=== PATIENT | female | born 2005 | race Caucasian/White ===

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

== ENCOUNTER 2024-06-13 16:06 | Emergency (ER) | payer MEDICAID, SELFPAY ==
[2024-06-13 16:07] VITALS: BP 124/65; PULSE 102; RESP 19; TEMP 36.2; O2SAT 96; BMI 34.4
--- NOTE | 2024-06-13 16:22 | EDS_ITS ---
HPI History of Present Illness Chief Complaint: Abd Pain Informant: patient Narrative Narrative: 19-year-old female is 18 weeks , since yesterday she has felt lightheaded some nausea and just generally feeling poorly. Some subjective chills. Some suprapubic discomfort and an increase in the low back discomfort that she has had for a little while. She has had urinary frequency while , that is no different than usual yesterday and today. No dysuria. No hematuria. No syncope, no vertiginous symptoms or focal neurologic symptoms, no cough or dyspnea. PFSH PFS Medical History ADH disorder Asthma Home Medications ?Medication ?Instructions ?Recorded ?Last Taken ?Type albuterol sulfate 90 mcg/actuation 1 - 2 puff inhalati on Q4H PRN PRN 06/30/19 Unknown History aerosol inhaler Sob &/Or Wheezing atomoxetine 40 mg capsule 40 mg PO DAILY 11/28/21 Unkn own History etonogestrel 68 mg subdermal See Rx Instructions .Rout e .COMPLEX 11/28/21 Unknown History implant (Nexplanon) ketoconazole 2 % shampoo 1 applic topical DAILY 11/28 Unknown History metoclopramide HCl 10 mg tablet 10 mg PO Q6H PRN Heada kacie #15 tabs 11/28/21 Unknown Rx sulfacetamide sodium (acne) 10 % 1 applic topical BID 11/28/21 Unknown History lotion (suspension) nitrofurantoin 100 mg PO Q12 #14 CAPSULES 0 06/13/24 Unknown Rx monohydrate/macrocrystals 100 mg capsule Allergy/AdvReac Type Severity Reaction Status Date / Time camphor (From Vicks Vaporub) Allergy Other Verified 06/13/24 16:07 eucalyptus (From Vicks Allergy Other Verified 06/13/24 16:07 Vaporub) menthol (From Vicks Vaporub) Allergy Other Verified 06/13/24 16:07 petrolatum,white (From Vicks Allergy Other Verified 06/13/24 16:07 Vaporub) turpentine oil (From Vicks Allergy Other Verified 06/13/24 16:07 Vaporub) Surgical History H/O eye surgery Social History Smoking Status: Never smoker ROS ROS ED Constitutional Constitutional ED: Reports chills; Denies fever(s) Eyes Eyes: Denies change in vision or diplopia ENT ENT ED: Denies rhinorrhea or sore throat Cardiovascular Cardiovascular: Reports lightheadedness; Denies chest pain, palpitations or syncope Respiratory/Chest Respiratory/Chest: Denies cough or dyspnea Gastrointestinal Gastrointestinal: Reports abdominal pain; Denies diarrhea, nausea or vomiting Genitourinary Genitourinary ED: Reports urinary frequency; Denies dysuria or hematuria Musculoskeletal Musculoskeletal: Reports back pain; Denies neck pain Integumentary Denies abscess or rash Neurologic Neurologic: Denies headache(s), paresthesias or weakness Psychiatric Psychiatric: Denies anxiety or suicidal thoughts EXAM Physical Exam Const Vital Signs: 06/13/24 16:07 06/13/24 16:44 06/13/24 18:06 Temperature 97.1 F L Temperature Source Temporal Pulse Rate 102 H 100 Respiratory Rate 19 H 16 Respiratory Effort Normal Respiratory Pattern Normal Blood Pressure 124/65 H 128/75 H Blood Pressure Mean 84 92 Pulse Ox 96 99 Oxygen Delivery Method Room Air Positive well nourished and well developed General Appearance ED: well developed and NAD HEENT Reports moist mucous membranes normocephalic and atraumatic Eyes PERRL and EOMs intact bilaterally Neck full ROM and supple Resp normal respiratory effort and clear to auscultation bilaterally Cardio regular rate, regular rhythm and no murmurs GI GI Narrative: Mild suprapubic tenderness no guarding or rebound. Abdomen distended to about t he umbilicus consistent with second trimester around 18 weeks. Otherwise benign abdomen. Auscultation: normoactive bowel sounds Palpation: soft Back/Spine no CVA tenderness General Back: other FROM Extremity normal to inspection General Extremety ED: Negative for edema, pulses abnormal or tenderness General Extremity: Negative for edema or pulses abnormal Neuro oriented x3, CN's II-XII intact bilaterally, no sensory deficits noted and gait normal Sensorium / Orientation: awake and alert Motor Exam: strength 5/5 throughout Psych mental status grossly normal Skin no rashes or lesions noted and no wounds MDM MDM MDM Narrative Medical decision making narrative: Patient's vital signs look normal for her second trimester . Prior to my seeing the patient, she gave us a urine sample, it is cloudy. I suspect she has UTI so we sent UA and culture. It is consistent with infection, I suspect this is causing the patient's symptoms. She will be started on Macrobid we sent a culture and advised to follow-up with her OB. Lab Data Attestation: I reviewed the patient's lab results. Labs: Laboratory Results - last 24 hr 06/13/24 16:22 Urine Color Straw Urine Clarity Cloudy Urine pH 8.0 Ur Specific [place]iskey 1.010 Urine Protein 30 H Urine Glucose (UA) Normal Urine Ketones Negative Urine Occult Blood Negative Urine Nitrite Negative Urine Bilirubin Negative Urine Urobilinogen Normal Ur Leukocyte Esterase 500 H Urine RBC 0-5 SEEN Urine WBC 10-25 SEEN Ur Squamous Epith Cells 50-100 SEEN Urine Bacteria 1+ Urine Mucus 0 SEEN Discharge Plan Triage Chief Complaint: Abd Pain Other Complaint: General Illness ED Provider: Robles Cagle Dx/Rx/DC Orders Clinical Impression: Acute cystitis without hematuria, Second trimester Instructions: ED Cystitis Female Adult Prescriptions: New nitrofurantoin monohyd/m-cryst 100 mg capsule 100 mg PO Q12 Qty: 14 0RF No Action albuterol sulfate 1 INHALER inhaler 1 - 2 puff inhalation Q4H PRN PRN (Reason: Sob &/Or Wheezing) ketoconazole 2 % shampoo 1 applic TOPICAL DAILY sulfacetamide sodium (acne) 10 % suspension 1 applic TOPICAL BID Patient Comments: APPLY A THIN LAYER TO THE FACE 1-2 TIMES DAILY atomoxetine 40 mg capsule 40 mg PO DAILY Patient Comments: TAKE 1 CAPSULE BY MOUTH IN THE MORNING Nexplanon 68 mg Implant See Rx Instructions .ROUTE .COMPLEX Rx Instructions: 68 mg subdermally every 5 to 6 years metoclopramide HCl [metoclopramide HCl] 10 MG tablet 10 mg PO Q6H PRN (Reason: Headache) Qty: 15 0RF Primary Care Provider: Vashti Mclean Referrals: Vashti Mclean DO [Primary Care Provider] - Jes Blount DO [Med Staff - Active Staff] - 3-5 Days if not improving Print Language: Sami Disposition Disposition: Home, Self Care
[2024-06-13 16:31] LABS: Mucous, Urine 0 SEEN /hpf (<or=2+)
[2024-06-13 16:34] LABS: Color, Urine Straw (Yellow); Glucose, Dipstick Normal (Normal); Ketone-Dipstick Negative (Negative); Leukocyte Esterase-Dipstick 500 /ul (Negative); Nitrite-Dipstick Negative (Negative); Occult Blood-Urine Negative /ul (Negative); Protein-Dipstick 30 mg/dl (Negative); Urine Bilirubin Dipstick Negative (Negative); Urine Clarity Cloudy (Clear); Urine Urobilinogen Normal (Normal)
[2024-06-13 18:06] VITALS: BP 128/75; PULSE 100; RESP 16; O2SAT 99
[2024-06-13 18:49] LABS: Bacteria 1+ /hpf (None Seen); Red Blood Cells-Urine 0-5 SEEN /hpf (0-5); White Blood Cells 10-25 SEEN /hpf (0-5)
[2024-06-13 18:50] LABS: Squamous Epithelial Cells - UA 50-100 SEEN /hpf (5-10)
[2024-06-13] MEDS: Nitrofurantoin Macrocrystals 100 MG Capsule PO (19:01)
[2024-06-13 19:02] VITALS: BP 138/78; PULSE 88; RESP 16; O2SAT 99
== END 2024-06-13 19:04 | disposition home or self-care (01) ==
PROVIDERS: Emergency Provider Emergency Medicine; PCP Pediatrics; Visit Provider Emergency Medicine
DX: O23.12 Infections of bladder in pregnancy, second trimester (principal); N30.00 Acute cystitis without hematuria; O99.342 Other mental disorders complicating pregnancy, second trimester; F90.9 Attention-deficit hyperactivity disorder, unspecified type; O99.512 Diseases of the respiratory system complicating pregnancy, second trimester; J45.909 Unspecified asthma, uncomplicated; O99.891 Other specified diseases and conditions complicating pregnancy; Z3A.18 18 weeks gestation of pregnancy; Z79.899 Other long term (current) drug therapy
CPT/HCPCS: 81001; 87086; 87088; 87186; 99283

== ENCOUNTER 2024-08-22 01:51 | Emergency (ER) | payer MEDICAID, SELFPAY ==
[2024-08-22 01:51] VITALS: BP 135/93; PULSE 100; RESP 16; TEMP 36.6; O2SAT 100; BMI 32.4
--- OUTSIDE RECORDS SUMMARY | 2024-08-22 02:23 | XMS RPT_ITS | CCD ---
Author Organization [facility] Care Team Providers [employer] Name Role Phone Elizabeth Hannon Unavailable Lizzy Dacosta Primary Care [facility] er Vashti Mclean DO Primary Care Provider Lizzy Dacosta Primary Care [facility] er VASHTI MCLEAN Primary Care Unavailable ROSALINE ESTEBAN Referring Unavailable ROSALINE ESTEBAN Attending Unavailable REFERRED, SELF Referring Unavailable VASHTI MCLEAN Primary Care Unavailable VASHTI MCLEAN Attending Unavailable REFERRED, SELF Referring Unavailable VASHTI MCLEAN Primary Care Unavailable VASHTI MCLEAN Attending Unavailable REFERRED, SELF Referring Unavailable VASHTI MCLEAN Primary Care Unavailable ROSALINE ESTEBAN Attending Unavailable VASHTI MCLEAN Attending Unavailable VASHTI MCLEAN Primary Care Unavailable REFERRED, SELF Referring Unavailable VASHTI MCLEAN Attending Unavailable VASHTI MCLEAN Primary Care Unavailable REFERRED, SELF Referring Unavailable Lizzy Dacosta Primary Care Provid er Lizzy Dacosta MD Primary Care Pro vider PHYSICIAN, NOT RECORDED Primary Care Physician U Robles Bustamante Attending Unavailable Vashti Mclean Primary Care Unavailable CÉSAR JOSHI Attending Unavailable LIZZY DACOSTA Primary Care Nisha vailable MELANIA NASSAR Attending Unavailable LIZZY DACOSTA Primary Care Nisha vailable LI, MONA Referring Unavailable LIZZY DACOSTA Primary Care Nisha vailable LI, MONA Referring Unavailable LIZZY DACOSTA Primary Care Nisha vailable LI, MONA Attending Unavailable LIZZY DACOSTA Primary Care Nisha vailable PHYSICIAN, NOT RECORDED Primary Care Unavaila ble JAMIE MARTIN, AMINTA Attending Unavailable PHYSICIAN, NOT RECORDED Primary Care Unavaila clifford ANNE MD, MARYJO Consulting Unavailable KAPPER MAINTENANCE TEAM MEMBER-LITHOGRAPH PRINTER, ALEX Myles Attending Unavaila clifford TITUS MAINTENANCE TEAM MEMBER-LITHOGRAPH PRINTERALEX Admitting Unavaila ble JOHN MARTIN, DR GUILLERMO Hylton Attending Unavailable PHYSICIAN, NOT RECORDED Primary Care Unavaila EDITH Merrill MD Consulting Unavailable ERIN DO, CLAU Attending Unavailable PHYSICIAN, NOT RECORDED Primary Care Unavaila clifford HARDY MD, JUNG Consulting Unavailable ANGELINA FIGUEROA, EDITH Admitting Unavailable PHYSICIAN, NOT RECORDED Primary Care Unavaila ble WOO FIGUEROA, DR MICHAEL LE Consulting Unav ailable ASHLEY DO, MAYE Attending Unavailable VARUN DO, SYLVESTER C Consulting Unavailabl e USEN, ODUWARE Consulting Unavailable MAHMOBRIDGETTE DO, CLAU Consulting Unavailable MICHAEL LÓPEZ MD Consulting Unavailab mrai SANTACRUZ MD, DR MAVERICK PRECIADO Consulting Unavaila ble MICHAEL LÓPEZ MD Consulting Unavailab le PHYSICIAN, NOT RECORDED Primary Care Unavaila clifford HARDY MD, JUNG Admitting Unavailable HAYLEY FIGUEROA, JUNG Attending Unavailable PHYSICIAN, NOT RECORDED Primary Care Unavaila ble OB, OB [facility] Consulting Unavailable ALINA MARTIN, DR GUTHRIE Attending Unavailable EMIR WEAVER DO Admitting Unavailable MARYJO ANNE MD Consulting Unavailable EDUARDO FIGUEROA, DR LENI Baldwin Consulting Nakul GUTIERREZ MD, LIVIA Consulting Unavailable Elizabeth El Consulting Unavailable JAIRON NAVA Consulting Unavailable MICHAEL LÓPEZ MD Attending Unavailab le PHYSICIAN, NOT RECORDED Primary Care Unavaila ble Allergies Allergy Classification Reported Allergen(s) Allergy Type Date of Onset Reaction(s) Facility (11 sources) [facility]; Translations: [CAMPH-EUCALYPT- [id number]] Drug Intolerance 0 Intolerance [facility] Work Phone: (2 sources) Other; Translations: [OTHER] Propensity to adverse reactions 0 Blistering Rash [facility] (17 sources) Camphor; Translations: [camphor topical] Drug Allergy 9 Other: See Comments [facility] (10 sources) Eucalyptus extract; Translations: [EUCALYPTUS] Drug Allergy 9 Other: See Comments [facility] Work Phone: (10 sources) Menthol; Translations: [MENTHOL] Drug Allergy 9 Other: See Comments [facility] Work Phone: (10 sources) Petrolatum; Translations: [PETROLATUM,WHIT E] Drug Allergy 9 Other: See Comments [facility] Work Phone: (9 sources) Turpentine Drug Allergy 2 Other: See Comments [facility] Work Phone: (1 source) Camphor Drug Allergy 5 [facility] Repository (1 source) Eucalyptus extract Drug Allergy 5 [facility] Repository (1 source) Menthol Drug Allergy 5 [facility] Repository (1 source) Petrolatum Drug Allergy 5 [facility] Repository (1 source) turpentine oil Drug allergy (disorder) 5 [facility] Repository (1 source) TURPENTINE; Translations: [TURPENTINE] Propensity to adverse reactions to drug (disorder) 2 [facility] Repository (2 sources) Piperacillin / tazobactam; Translations: [piperacillin-ta zobactam] Drug Allergy [facility] Medications Current Medications Medication Drug Class(es) Dates Sig (Normalized) Sig (Original) acetaminophen 500 mg oral tablet (2 sources) Start: 06-19-2024 End: 06-26-2024 Tylenol Extra Strength 500 mg oral tablet Dose : 1,000 mg = 2 tab(s), Oral, q6hr, PRN Pain, scale 4-10, X 7 day(s), # 50 tab(s), 0 Refill(s), 06/26/24 11:19:00 AM EDT, Pharmacy: [facility], 175.3, cm, 06/15/24 22:10:00 EDT, Height, kg, 06/15/24 22:10:00 EDT, Dosing Weight Start Date: 06/19/24 Stop Date: 06/26/24 Status: Ordered Quantity: 50.0 Unit: tab(s) Repeat number: 1 [id number] 200 actuat albuterol 0.09 mg/actuat metered dose inhaler (8 sources) beta2-Adrenergic Agonist Start: 08-11-2019 take 2 puff(s) by inhalation every four hours as needed for cough albuterol 108 (90 Base) MCG/ACT inhaler Inhale 2 Puffs into the lungs every 4 hours as needed for Wheezing or Cough Use with spacer. 2 Inhaler 1 08/11/2019 Active Start: 06-30-2019 take 1 puff(s) by in halation every four hours as needed Albuterol Sulfate Active 1 - 2 PUFF INHALATION EVERY 4 HOURS NEEDED June 29, 2019 11:00pm Start: 04-09-2018 End: 05-06-2024 albuterol HFA (PROVENTIL HFA , VENTOLIN HFA) 90 mcg/actuation inhaler Inhale 2 Puffs as instructed. 04/09/2018 05/06/2024 Discontinued Comment on above: Inhale 2 Puffs as in structed. amoxicillin 500 mg oral capsule (1 source) Penicillin-class Antibacterial Start: 2 End: 2 take 1 capsule by mouth twice daily amoxicillin (POLYMOX, AMOXIL) 500 mg capsule Indications: Sore throat Take 1 capsule by mouth twice daily for 10 days. 20 capsule 0 05/16/2021 05/26/2021 Active Comment on above: Take [address] [facility] twice daily for 10 days. amoxicillin 875 mg / clavulanate 125 mg oral tablet (4 sources) Penicillin-class Antibacterial Start: 5 End: 5 amoxicillin-clavula good 875 mg-125 mg oral tablet 1 tab(s), Oral, BIDM, # 20 tab(s), 0 Refill(s), 06/28/24 3:24:00 PM EDT, Pharmacy: [facility], 175.3, cm, 06/15/24 22:10:00 EDT, Height, 106.1, kg, 06/15/24 22:10:00 EDT, Dosing Weight Start Date: 06/18/24 Stop Date: 06/28/24 Status: Ordered Quantity: 20.0 Unit: tab(s) Repeat number: 1 Start: 02-15-2022 End: 02-20-2022 take 1 tablet by mouth twice daily amoxicillin-clavulanic acid (AUGMENTIN) 875-125 mg per tablet Take 1 tablet by mouth twice daily for 5 days. 10 tablet 0 02/15/2022 02/20/2022 Active Comment on above: Take 1 tablet by josep th twice daily for 5 days. Take 1 tablet by josep th twice daily for 3 days. aspirin 81 mg delayed release oral tablet (6 sources) Platelet Aggregation Inhibitor, Nonsteroidal Anti-inflammatory Drug Start: 05-07-19 take 1 tablet by mouth once daily aspirin, enteric coated (ECOTRIN LOW STRENGTH) 81 mg EC tablet Indications: 12 weeks gestation of ([facility]) , Encounter for supervision of normal first in first trimester ([facility]) Take 1 tablet by mouth once daily. 90 tablet 3 05/06/2024 Active atomoxetine 40 mg oral capsule (8 sources) Norepinephrine Reuptake Inhibitor Start: 12-18-19 End: 05-07-19 atomoxetine (STRATTERA) 40 mg capsule 12/17/2020 05/06/2024 Discontinued cefdinir 300 mg oral capsule (2 sources) Cephalosporin Antibacterial Start: 06-28-19 End: 07-12-19 cefdinir 300 mg oral capsule Dose : 300 mg = 1 cap(s), Oral, q12h, X 14 day(s), # 28 cap(s), 0 Refill(s), 07/11/24 1:45:00 PM EDT, Pharmacy: [facility], 177.8, cm, 06/24/24 6:07:00 EDT, Height, 105.3, kg, 06/24/24 6:07:00 EDT, Dosing Weight Start Date: 06/27/24 Stop Date: 07/11/24 Status: Ordered Quantity: 28.0 Unit: cap(s) Repeat number: 1 cephalexin 500 mg oral capsule (2 sources) Cephalosporin Antibacterial Start: 06-15-19 End: 06-22-19 cephalexin 500 mg oral capsule Dose : 500 mg = 1 cap(s), Oral, q12h, X 7 day(s), # 14 cap(s), 0 Refill(s), 06/21/24 1:49:00 AM EDT, 109.1 Start Date: 06/14/24 Stop Date: 06/21/24 Status: Ordered Quantity: 14.0 Unit: cap(s) Repeat number: 1 ciprofloxacin 500 mg oral tablet (1 source) Quinolone Antimicrobial Start: 07-11-19 End: 07-21-19 Cipro 500 mg oral tablet Dose : 500 mg = 1 tab(s), Oral, q12h, X 10 day(s), # 20 tab(s), 0 Refill(s), 07/20/24 8:50:00 AM EDT, Pharmacy: [facility], 15.3, cm, 07/07/24 0:34:00 EDT, Height, 103.4, kg, 07/07/24 0:34:00 EDT, Dosing Weight Start Date: 07/10/24 Stop Date: 07/20/24 Status: Ordered Quantity: 20.0 Unit: tab(s) Repeat number: 1 etonogestrel 68 mg drug implant (6 sources) Progestin Start: 11-11-19 End: 05-07-19 etonogestrel (NEXPLANON) subdermal implant 68 mg Indications: Insertion of implantable subdermal contraceptive 1 Each by SUBDERMAL route as directed. 1 Each 11/11/2019 05/06/2024 Discontinued etonogestrel (NE XPLANON) 68 MG subdermal implant Inject 1 implant into the skin once 0 Active Comment on above: 1 Each by SUBDERMAL route as directed. Etonogestrel (Nexplanon) 68 mg Implant (2 sources) Start: 11-28-2021 Etonogestrel (Nexplanon) 68 mg Implant Active 0 .ROUTE .COMPLEX November 27, 2021 11:00pm 68 mg subdermally every 5 to 6 years Start: 11-28-2021 Etonogestrel ( Nexplanon) 68 mg Implant Active 0 .ROUTE .COMPLEX November 28, 2021 12:00am 68 mg subdermally every 5 to 6 years famotidine 20 mg oral tablet (3 sources) Histamine-2 Receptor Antagonist Start: 06-19-2024 Pepcid 20 mg oral tablet Dose : 20 mg = 1 tab(s), Oral, qDay, # 30 tab(s), 0 Refill(s), Pharmacy: [facility], 175.3, cm, 06/15/24 22:10:00 EDT, Height, kg, 06/15/24 22:10:00 EDT, Dosing Weight Start Date: 06/19/24 Status: Ordered Quantity: 30.0 Unit: tab(s) Repeat number: 1 ferrous sulfate 325 mg oral tablet (6 sources) ferrous sulfate (IRON) 325 mg (65 mg iron) tablet Take 325 mg by mouth. Active folic acid 0.4 mg oral tablet (6 sources) take 1 tablet by mouth once daily folic acid 400 mcg tablet Take 400 mcg by mouth once daily. Active ibuprofen 600 mg oral tablet (3 sources) Nonsteroidal Anti-inflammatory Drug Start: 06-27-2024 End: 07-11-2024 ibuprofen 600 mg oral tablet Dose : 600 mg = 1 tab(s), Oral, q6h, Take with food or milk., # 60 tab(s), 0 Refill(s), Pharmacy: [facility], 177.8, cm, 06/24/24 6:07:00 EDT, Height, kg, 06/24/24 6:07:00 EDT, Dosing Weight Start Date: 06/27/24 Stop Date: 07/11/24 Status: Ordered Quantity: 60.0 Unit: tab(s) Repeat number: 1 ketoconazole 20 mg/ml medicated shampoo (7 sources) Azole Antifungal Start: 11-28-2021 Ketoconazole Active 1 APPLIC TOPICAL DAILY November 27, 2021 11:00pm Start: 05-03-2021 End: 05-06-2024 ketoconazole (NIZORAL) 2 % s hampoo WASH THE SCALP DAILY AND ALLOW TO SIT ON THE SCALP FOR 5 MINUTES PRIOR TO RINSING 05/03/2021 05/06/2024 Discontinued Comment on above: WASH THE SCALP DAILY AND ALLOW TO SIT ON THE SCALP FOR 5 MINUTES PRIOR TO RINSING melatonin 10 mg oral tablet (5 sources) End: 05-06-2024 melatonin 10 mg tab Take by mouth. 05/06/2024 Discontinued Comment on above: Take by mouth. metoclopramide 10 mg oral tablet (4 sources) Dopamine-2 Receptor Antagonist Start: 06-14-2024 End: 06-21-2024 Reglan 10 mg oral tablet Dose : 10 mg = 1 tab(s), Oral, TID, X 7 day(s), # 21 tab(s), 0 Refill(s), 06/21/24 1:49:00 AM EDT Start Date: 06/14/24 Stop Date: 06/21/24 Status: Ordered Quantity: 21.0 Unit: tab(s) Repeat number: 1 Start: 11-28-2021 take 10 mg by mouth every six hours Metoclopramide Hcl Active 10 MG PO EVERY 6 HOURS November 28, 2021 6:51pm metroNIDAZOLE 500 mg oral tablet (3 sources) Nitroimidazole Antimicrobial Start: 06-27-2024 End: 07-20-2024 metroNIDAZOLE 500 mg oral tablet Dose : 500 mg = 1 tab(s), Oral, q8h, X 10 day(s), # 30 tab(s), 0 Refill(s), 07/20/24 8:51:00 AM EDT, Pharmacy: [facility], 15.3, cm, 07/07/24 0:34:00 EDT, Height, 103.4, kg, 07/07/24 0:34:00 EDT, Dosing Weight Start Date: 07/10/24 Stop Date: 07/20/24 Status: Ordered Quantity: 30.0 Unit: tab(s) Repeat number: 1 ondansetron 4 mg disintegrating oral tablet (2 sources) Serotonin-3 Receptor Antagonist Start: 06-14-2024 End: 06-18-2024 ondansetron 4 mg oral tablet, disintegrating Dose : 4 mg = 1 tab(s), Oral, q6h, PRN Nausea/Vomiting, X 4 day(s), # 12 tab(s), 0 Refill(s), 06/18/24 1:49:00 AM EDT Start Date: 06/14/24 Stop Date: 06/18/24 Status: Ordered Quantity: 12.0 Unit: tab(s) Repeat number: 1 polyethylene glycol 3350 17150 mg powder for oral solution (3 sources) Osmotic Laxative Start: 06-19-2024 End: 06-29-2024 take 17 doses by mouth once daily as needed for constipation MiraLax oral powder for reconstitution Dose : 17 gram(s) =, Oral, qDay, PRN Constipation, X 10 day(s), # 10 EA, 0 Refill(s), 06/29/24 11:20:00 AM EDT, Pharmacy: [facility], 175.3, cm, 06/15/24 22:10:00 EDT, Height, kg, 06/15/24 22:10:00 EDT, Dosing Weight Start Date: 06/19/24 Stop Date: 06/29/24 Status: Ordered Quantity: 10.0 Unit: EA Repeat number: 1 Multivitamins (1 source) Start: 06-15-2024 take 1 tablet by mouth once daily Multivitamins Dose = 1 tab(s), Oral, qDay, 0 Refill(s) Start Date: 06/15/24 Status: Ordered Repeat number: 1 VIT 4-ZXMH-YIBJN-DHA ORAL (6 sources) VIT 2-MXBG-PPHFL-DHA ORAL Take by mouth. Active pyridoxine HCl, vitamin B6, (PYRIDOXINE ORAL) (6 sources) pyridoxine HCl, vitamin B6, (PYRIDOXINE ORAL) Take by mouth. Active riboflavin 100 mg oral tablet (4 sources) Start: 01-11-2022 End: 05-06-2024 VITAMIN B-2 100 mg tab 01/11/2022 05/06/2024 Discontinued sennosides, shelter 8.6 mg oral tablet (1 source) Start: 06-27-2024 End: 07-17-2024 Senokot 8.6 mg oral tablet Dose : 8.6 mg = 1 tab(s), Oral, qHS, PRN for constipation, # 20 tab(s), 0 Refill(s), Pharmacy: [facility], 177.8, cm, 06/24/24 6:07:00 EDT, Height, kg, 06/24/24 6:07:00 EDT, Dosing Weight Start Date: 06/27/24 Stop Date: 07/17/24 Status: Ordered Quantity: 20.0 Unit: tab(s) Repeat number: 1 spironolactone 100 mg oral tablet (6 sources) Aldosterone Antagonist Start: 05-03-2021 End: 05-06-2024 take 1 tablet by mouth once daily spironolactone (ALDACTONE) 100 mg tablet TAKE 1 TABLET BY MOUTH AT THE SAME TIME NIGHTLY WITH WATER 05/03/2021 05/06/2024 Discontinued Comment on above: TAKE 1 TABLET BY JOSEP AT THE SAME TIME NIGHTLY WITH WATER sulfacetamide sodium 100 mg/ml topical lotion (12 sources) Sulfonamide Antibacterial Start: 11-28-2021 Sulfacetamide Sodium (Acne) Active 1 APPLIC TOPICAL TWICE A DAY November 27, 2021 11:00pm Start: 05-05-2021 Sulfacetamide Sodium, Acne, 10 % susp APPLY A THIN LAYER TO THE FACE 1-2 TIMES DAILY 05/05/2021 Active Comment on above: APPLY A THIN LAYER T O THE FACE 1-2 TIMES DAILY Completed/Discontinued Medications Medication Drug Class(es) Dates Sig (Normalized) Sig (Original) magnesium oxide 400 mg oral tablet (3 sources) Start: 01-11-2022 End: 05-05-2024 take 1 tablet by mouth once daily magnesium oxide (MAG-OX) 400 mg (241.3 mg magnesium) tablet Take 1 tablet by mouth once daily. 01/11/2022 05/05/2024 Discontinued Comment on above: Take 1 tablet by josep once daily. nitrofurantoin, macrocrystals 25 mg / nitrofurantoin, monohydrate 75 mg oral capsule (3 sources) Nitrofuran Antibacterial Start: 05-07-2024 End: 05-14-2024 take 1 capsule by mouth twice daily nitrofurantoin monohydrate and macrocrystal (MACROBID) 100 mg capsule Take 1 capsule by mouth two times a day for 7 days. 14 capsule 05/07/2024 05/14/2024 oxyCODONE hydrochloride 5 mg oral tablet (4 sources) Opioid Agonist Start: 07-01-2024 oxyCODONE 5 mg oral tablet ( IMMEDIATE release ) Dose : 5 mg = 1 tab(s), Oral, q6h, PRN as needed for pain, 0 Refill(s), 105.3 Start Date: 07/01/24 Status: Ordered Repeat number: 1 Start: 06-27-2024 End: 06-30-2024 oxyCODONE 5 mg oral tablet ( IMMEDIATE release ) Dose : 5 mg = 1 tab(s), Oral, q6hr, X 3 day(s), # 12 tab(s), 0 Refill(s), 06/30/24 1:47:00 PM EDT, Pharmacy: [facility], Post-op pain, 177.8, cm, 06/24/24 6:07:00 EDT, Height, 105.3, kg, 06/24/24 6:07:00 EDT, Dosing Weight Start Date: 06/27/24 Stop Date: 06/30/24 Status: Ordered Quantity: 12.0 Unit: tab(s) Repeat number: 1 Indications: Other acute postprocedural pain; Start: 06-19-2024 End: 06-22-2024 oxyCODONE 5 mg oral tablet ( IMMEDIATE release ) Dose : 5 mg = 1 tab(s), Oral, q6hr, PRN as needed for pain, X 3 day(s), # 12 tab(s), 0 Refill(s), 06/22/24 8:07:00 AM EDT, Pharmacy: [facility], Postoperative pain, 175.3, cm, 06/15/24 22:10:00 EDT, Height, 106.1, kg, 06/15/24 22:10:00 EDT, Dosing Weight Start Date: 06/19/24 Stop Date: 06/22/24 Status: Ordered Quantity: 12.0 Unit: tab(s) Repeat number: 1 Indications: Other acute postprocedural pain; Problems Active Problems Problem Classification Problem Date Documented Da te Episodic/Chronic Abdominal pain (3 sources) Abdominal pain; Translations: [Unspecified abdominal pain] Onset: 06-15-2024 Episodic Acute posthemorrhagic anemia (1 source) Acute posthemorrhagic anemia; Translations: [Acute posthemorrhagic anemia] Onset: 06-23-2024 Episodic Adjustment disorders (1 source) Adjustment disorder with depressed mood; Translations: [Adjustment disorder with depressed mood] Onset: 06-23-2024 Chronic Allergic reactions (1 source) Allergy status to penicillin; Translations: [Allergy status to penicillin] Onset: 07-07-2024 Episodic Appendicitis and other appendiceal conditions (6 sources) Appendicitis; Translations: [Unspecified appendicitis] Onset: 06-15-2024 Episodic Asthma (4 sources) Asthma; Translations: [Unspecified asthma, uncomplicated] Onset: 02-01-2010 03-24-2021 Chronic Attention-deficit, conduct, and disruptive behavior disorders (1 source) Attention deficit hyperactivity disorder, predominantly inattentive type; Translations: [Attention-deficit hyperactivity disorder, predominantly inattentive type] Onset: 08-10-2021 08-10-2021 Chronic Cardiac dysrhythmias (4 sources) Tachyarrhythmia ; Translations: [Tachycardia, unspecified] Onset: 06-15-2024 Episodic Complications of surgical procedures or medical care (6 sources) Postprocedural infection; Translations: [Infection following a procedure, other surgical site, initial encounter] Onset: 06-23-2024 Episodic Conditions associated with dizziness or vertigo (1 source) Dizziness; Translations: [Dizziness and giddiness] Episodic Contraceptive and procreative management (1 source) Subcutaneous contraceptive implant present; Translations: [Encounter for surveillance of implantable subdermal contraceptive] 08-27-2023 Episodic Deficiency and other anemia (1 source) Anemia; Translations: [Anemia, unspecified] Episodic Diseases of white blood cells (4 sources) Leukocytosis; Translations: [Elevated white blood cell count, unspecified] Onset: 06-15-2024 Chronic Disorders of teeth and jaw (1 source) Other specified disorders of teeth and supporting structures; Translations: [Other specified disorders of teeth and supporting structures] Onset: 06-23-2024 Episodic Fever of unknown origin (3 sources) Fever; Translations: [Fever, unspecified] Onset: 06-30-2019 Resolved: 09-02-2019 09-02-2019 Episodic Fluid and electrolyte disorders (6 sources) Hypokalemia; Translations: [Hypokalemia] Onset: 06-15-2024 Episodic Headache; including migraine (3 sources) Headache; Translations: [Headache] Onset: 07-01-2019 Resolved: 07-01-2019 07-01-2019 Episodic Immunizations and screening for infectious disease (3 sources) Patient encounter status; Translations: [Encounter for screening for infections with a predominantly sexual mode of transmission] Onset: 05-06-2024 05-06-2024 Episodic Intestinal obstruction without hernia (1 source) Ileus, unspecified; Translations: [Ileus, unspecified] Onset: 06-23-2024 Episodic Malaise and fatigue (1 source) Fatigue; Translations: [Other fatigue] Episodic Mood disorders (1 source) Mood disorders; Translations: [Depression, unspecified] Onset: 06-23-2024 Nausea and vomiting (2 sources) Nausea; Translations: [Nausea] Onset: 06-15-2024 Episodic Open wounds of head; neck; and trunk (1 source) Laceration of right eyelid; Translations: [Laceration without foreign body of right eyelid and periocular area, initial encounter] Episodic Other complications of (1 source) Anemia complicating , second trimester; Translations: [Anemia complicating , second trimester] Onset: 06-23-2024 Chronic Other complications of (1 source) Obesity complicating , second trimester; Translations: [Obesity complicating , second trimester] Onset: 06-23-2024 Chronic Other complications of (6 sources) Urinary tract infection in ; Translations: [Unspecified infection of urinary tract in , unspecified trimester] Onset: 05-07-2024 05-07-2024 Episodic Other complications of (1 source) Mild hyperemesis gravidarum; Translations: [Mild hyperemesis gravidarum] Onset: 06-14-2024 Episodic Other complications of (2 sources) Diseases of the digestive system complicating , second trimester; Translations: [Diseases of the digestive system complicating , second trimester] Onset: 06-15-2024 Episodic Other complications of (1 source) Mild hyperemesis gravidarum; Translations: [Mild hyperemesis gravidarum] Onset: 06-13-2024 Episodic Other complications of (1 source) Other diseases of the blood and blood-forming organs and certain disorders involving the immune mechanism complicating , second trimester; Translations: [Other diseases of the blood and blood-forming organs and certain disorders involving the immune mechanism complicating , second trimester] Onset: 06-23-2024 Episodic Other complications of (1 source) Other maternal infectious and parasitic diseases complicating , second trimester; Translations: [Other maternal infectious and parasitic diseases complicating , second trimester] Onset: 06-23-2024 Episodic Other complications of (1 source) Missed ; Translations: [Missed ] Onset: 06-23-2024 Episodic Other complications of (1 source) Other mental disorders complicating , second trimester; Translations: [Other mental disorders complicating , second trimester] Onset: 06-23-2024 Episodic Other complications of (1 source) Diseases of the respiratory system complicating , second trimester; Translations: [Diseases of the respiratory system complicating , second trimester] Onset: 06-23-2024 Episodic Other complications of (1 source) Endocrine, nutritional and metabolic diseases complicating , second trimester; Translations: [Endocrine, nutritional and metabolic diseases complicating , second trimester] Onset: 06-23-2024 Episodic Other complications of (1 source) Smoking (tobacco) complicating , second trimester; Translations: [Smoking (tobacco) complicating , second trimester] Onset: 06-15-2024 Episodic Other gastrointestinal disorders (1 source) Constipation, unspecified; Translations: [Constipation, unspecified] Onset: 06-23-2024 Episodic Other nervous system disorders (1 source) Postoperative pain ; Translations: [Other acute postprocedural pain] Onset: 06-19-2024 Episodic Other nervous system disorders (2 sources) Other acute postprocedural pain; Translations: [Other acute postprocedural pain] Onset: 06-15-2024 Episodic Other non-traumatic joint disorders (2 sources) Elbow joint pain; Translations: [Pain in right elbow] Episodic Other nutritional; endocrine; and metabolic disorders (7 sources) Body mass index 30+ - obesity; Translations: [Body mass index (BMI) 36.0-36.9, adult] Onset: 05-06-2024 05-06-2024 Chronic Other nutritional; endocrine; and metabolic disorders (1 source) Hypomagnesemia; Translations: [Hypomagnesemia] Onset: 06-23-2024 Chronic Other and delivery including normal (20 sources) Normal ; Translations: [Encounter for supervision of normal first , first trimester] Onset: 05-06-2024 05-06-2024 Episodic Comment on above: System added from do cumentation. Status documented as Yes on Admission need to chart still Polyhydramnios and other problems of amniotic cavity (1 source) Chorioamnionitis, second trimester, not applicable or unspecified; Translations: [Chorioamnionitis, second trimester, not applicable or unspecified] Onset: 06-23-2024 Episodic Residual codes; unclassified (4 sources) Gestation period, 12 weeks; Translations: [12 weeks gestation of ] 05-06-2024 Episodic Residual codes; unclassified (1 source) Gestation period, 18 weeks; Translations: [18 weeks gestation of ] Episodic Residual codes; unclassified (1 source) 16 weeks gestation of ; Translations: [16 weeks gestation of (HCC)] Onset: 06-05-2024 Episodic Residual codes; unclassified (1 source) 12 weeks gestation of ; Translations: [12 weeks gestation of ] Onset: 05-08-2024 Episodic Residual codes; unclassified (2 sources) 18 weeks gestation of ; Translations: [18 weeks gestation of ] Onset: 06-15-2024 Episodic Residual codes; unclassified (1 source) 19 weeks gestation of ; Translations: [19 weeks gestation of ] Onset: 06-23-2024 Episodic Residual codes; unclassified (1 source) Laparoscopic surgical procedure converted to open procedure; Translations: [Laparoscopic surgical procedure converted to open procedure] Onset: 06-15-2024 Episodic Septicemia (except in labor) (1 source) Other streptococcal sepsis; Translations: [Other streptococcal sepsis] Onset: 06-23-2024 Episodic Skin and subcutaneous tissue infections (2 sources) Abscess of abdominal wall; Translations: [Cutaneous abscess of abdominal wall] Onset: 06-23-2024 Episodic Substance-related disorders (1 source) Nicotine dependence, other tobacco product, uncomplicated; Translations: [Nicotine dependence, other tobacco product, uncomplicated] Onset: 07-07-2024 Chronic Unclassified (6 sources) [facility] - COMMON Onset: 05-06-2024 05-06-2024 Unclassified (6 sources) Education - [place] Onset: 05-06-2024 05-06-2024 Unclassified (1 source) Elevation of levels of liver transaminase levels; Translations: [Elevation of levels of liver transaminase levels] Onset: 06-23-2024 Urinary tract infections (1 source) Urinary tract infectious disease; Translations: [Urinary tract infection, site not specified] Episodic Past or Other Problems Problem Classification Problem Date Documented Da te Episodic/Chronic Fracture of upper limb (6 sources) Unspecified fracture of the lower end of left radius, initial encounter for closed fracture; Translations: [Unspecified fracture of the lower end of left radius, subsequent encounter for closed fracture with routine healing] Onset: 10-13-2016 10-23-2016 Episodic Other nutritional; endocrine; and metabolic disorders (1 source) Childhood obesity; Translations: [Body mass index (BMI) pediatric, greater than or equal to 95th percentile for age] Onset: 04-10-2018 04-10-2018 Episodic Other upper respiratory infections (3 sources) Sore throat symptom; Translations: [Acute pharyngitis, unspecified] Onset: 04-16-2013 Resolved: 07-30-2020 Episodic Viral infection (1 source) Viral disease; Translations: [Viral infection, unspecified] Onset: 07-01-2019 Resolved: 07-30-2020 07-30-2020 Episodic NEGATED: Highlighted row has been ruled out!Unclassified (1 source) No known active problems 02-15-2022 Results Test Name Value Interpretation Reference Range Facility .Manual Diffon 07-09-2024 Bands 2.0 % Normal 0.0-5.0 [facility] Comment on above: Performed By: #### D IFFSACHIN, CBC ####[address] [address] Basophil %, Manual 0.0 % Normal 0.0-2.5 [facility] Comment on above: Performed By: #### D IFFSACHIN, CBC ####[place] [id number] [place] [address] Basophil, Abs Manual 0.0 10 3/mcL Normal 0.0-0.3 [facility] Comment on above: Performed By: #### D IFFSACHIN, CBC ####[place] [id number] [place] [address] Eosinophil %, Manual 1.0 % Normal 0.0-6.0 [facility] Comment on above: Performed By: #### D IFFSACHIN, CBC ####[place] [id number] [place] [address] Eosinophil, Abs Manual 0.1 10 3/mcL Normal 0.0-0.7 [facility] Comment on above: Performed By: #### D IFF MORPH, CBC ####[address] [address] Lymphocyte %, Manual 32.0 % Normal 20.0-40.0 [facility] Comment on above: Performed By: #### D IFF, MORPH, CBC ####[place] [id number] Lymphocyte, Abs Manual 3.0 10 3/mcL Normal 0.9-4.3 [facility] Comment on above: Performed By: #### D IFF, MORPH, CBC ####[place] [address] Metamyelocyte 1.0 % Normal [facility] Comment on above: Performed By: #### D IFF, MORPH, CBC ####[place] [address] Monocyte %, Manual 3.0 % Normal 2.0-13.0 [facility] Comment on above: Performed By: #### D IFF, MORPH, CBC ####[place] [address] Monocyte, Abs Manual 0.3 10 3/mcL Normal 0.1-1.4 [facility] Comment on above: Performed By: #### D IFF, MORPH, CBC ####[place] [address] Neutrophil %, Manual 61.0 % Normal 50.0-75.0 [facility] Comment on above: Performed By: #### D IFF, MORPH, CBC ####[place] [address] Neutrophil, Abs Manual 5.9 10 3/mcL Normal 2.3-8.1 [facility] Comment on above: Performed By: #### D IFF, MORPH, CBC ####[place] [address] Nucleated RBC 0.0 /100 WBC Normal [facility] Comment on above: Performed By: #### D IFF, MORPH, CBC ####[place] [address] .Morphon 07-09-2024 RBC morphology finding Nom (Bld) Normal Normal [facility] Comment on above: Performed By: #### D IFF, MORPH, CBC ####[place] [address] Platelet Estimate Slt Increased Normal [facility] Comment on above: Performed By: #### D SACHIN MATHEWS, CBC ####[place] [address] CBCon 07-09-2024 Erythrocyte distribution width (RBC) [Ratio] 14.1 % Normal 11.5-15.5 [facility] Comment on above: Performed By: #### D SACHIN MATHEWS, CBC ####[place] [address] Hematocrit (Bld) [Volume fraction] 28.4 % Low 34.0-46.0 [facility] Comment on above: Performed By: #### D SACHIN MATHEWS, CBC ####[place] [address] Hgb 9.6 G/dL Low 12.0-16.0 [facility] Comment on above: Performed By: #### D SACHIN MATHEWS, CBC ####[place] [address] MCH (RBC) [Entitic mass] 29.0 pg Normal 27.0-33.0 [facility] Comment on above: Performed By: #### D SACHIN MATHEWS, CBC ####[place] [address] MCHC 33.7 G/dL Normal 32.0-36.0 [facility] Comment on above: Performed By: #### D SACHIN MATHEWS, CBC ####[place] [address] MCV (RBC) [Entitic vol] 86.1 fL Normal 80.0-99.0 [facility] Comment on above: Performed By: #### D SACHIN MATHEWS, CBC ####[place] [address] Platelet 523 10 3/mcL High 150-450 [facility] Comment on above: Performed By: #### D SACHIN MATHEWS, CBC ####[place] [address] Platelet mean volume (Bld) [Entitic vol] 6.9 fL Normal 6.6-10.5 [facility] Comment on above: Performed By: #### D SACHIN MATHEWS, CBC ####[place] [address] RBC 3.31 10 6/mcL Low 4.10-5.30 [facility] Comment on above: Performed By: #### D SACHIN MATHEWS, CBC ####[place] [address] WBC 9.4 10 3/mcL Normal 4.5-10.8 [facility] Comment on above: Performed By: #### D SACHIN MATHEWS, CBC ####[place] [address] LABORATORYOrdered By: SYSTEM SYSTEM on 07-09-2024 Band form neutrophils/100 WBC (Bld) 2.0 % Normal 0.0 - 5.0 % AH Workflow SS Basophils (Bld) [#/Vol] 0.0 103/mcL Normal 0.0 - 0.3 10^3/mcL Workflow SS Basophils/100 WBC (Bld) 0.0 % Normal 0.0 - 2.5 % AH Workflow SS Eosinophils (Bld) [#/Vol] 0.1 103/mcL Normal 0.0 - 0.7 10^3/mcL Workflow SS Eosinophils/100 WBC (Bld) 1.0 % Normal 0.0 - 6.0 % AH Workflow SS Erythrocyte distribution width (RBC) [Ratio] 14.1 % Normal 11.5 - 15.5 % AH Workflow SS Hematocrit (Bld) [Volume fraction] 28.4 % Low 34.0 - 46.0 % AH Workflow SS Hemoglobin (Bld) [Mass/Vol] 9.6 G/dL Low 12.0 - 16.0 G/dL AH Workflow SS Lymphocytes (Bld) [#/Vol] 3.0 103/mcL Normal 0.9 - 4.3 10^3/mcL Workflow SS Lymphocytes/100 WBC (Bld) 32.0 % Normal 20.0 - 40.0 % AH Workflow SS MCH (RBC) [Entitic mass] 29.0 pg Normal 27.0 - 33.0 pg AH Workflow SS MCHC 33.7 G/dL Normal 32.0 - 36.0 G/dL AH Workflow SS MCV (RBC) [Entitic vol] 86.1 fL Normal 80.0 - 99.0 fL AH Workflow SS Metamyelocytes/100 WBC (Bld) 1.0 % Invalid Interpretation Code AH Workflow SS Monocytes (Bld) [#/Vol] 0.3 103/mcL Normal 0.1 - 1.4 10^3/mcL AH Workflow SS Monocytes/100 WBC (Bld) 3.0 % Normal 2.0 - 13.0 % AH Workflow SS Neutrophils (Bld) [#/Vol] 5.9 103/mcL Normal 2.3 - 8.1 10^3/mcL AH Workflow SS Neutrophils/100 WBC (Bld) 61.0 % Normal 50.0 - 75.0 % AH Workflow SS Nucleated RBC 0.0 /100 WBC Invalid Interpretation Code Workflow SS Platelet mean volume (Bld) [Entitic vol] 6.9 fL Normal 6.6 - 10.5 fL AH Workflow SS Platelets (Bld) [#/Vol] 523 103/mcL High 150 - 450 10^3/mcL AH Workflow SS Platelets LM Ql (Bld) Slt Increased *NA* (07/09/24 3:56 AM) Invalid Interpretation Code Workflow SS RBC (Bld) [#/Vol] 3.31 106/mcL Low 4.10 - 5.3 0 10^6/mcL AH Workflow SS RBC morphology finding Nom (Bld) Normal *NA* (07/09/24 3:56 AM) Invalid Interpretation Code Workflow SS WBC (Bld) [#/Vol] 9.4 103/mcL Normal 4.5 - 10.8 10^3/mcL AH Workflow SS .GFRon 07-08-2024 GFR/1.73 sq M.predicted among non-blacks MDRD (S/P/Bld) [Vol rate/Area] mL/min/{1.73_m2} Normal [facility] Comment on above: Result Comment: Stages of Chronic Kidney Disease (CKD) Stage Description eGFR(ml/min/1.73 sq.m.) CKD 1 Normal kidney function or >=90 normal kindney function with possible kidney damage (ex. Proteinuria) CKD 2 Kidney damage with mild loss 60-89 of kidney function CKD 3a Mild to moderate loss of kidney 45-59 function CKD 3b Moderate to severe loss of 30-44 of kindey function CKD 4 Severe loss of kidney function 15-29 CKD 5 Kidney failure <15 Note: (go live 2024) the eGFR calculation was updated to the 2020 CKD-EPI creatinine equation without a race factor to calculate the eGFR results. Performed By: #### B MP, DIFF, CBC, GFR, MORPH ####[place] [id number] .Manual Diffon 07-08-2024 Bands 5.0 % Normal 0.0-5.0 [facility] Comment on above: Performed By: #### B MP, DIFF, CBC, GFR, MORPH ####[place] [address] Basophil %, Manual 0.0 % Normal 0.0-2.5 [facility] Comment on above: Performed By: #### B MP, DIFF, CBC, GFR, MORPH ####[place] [address] Basophil, Abs Manual 0.0 10 3/mcL Normal 0.0-0.3 [facility] Comment on above: Performed By: #### B MP, DIFF, CBC, GFR, MORPH ####[place] [address] Eosinophil %, Manual 1.0 % Normal 0.0-6.0 [facility] Comment on above: Performed By: #### B MP, DIFF, CBC, GFR, MORPH ####[place] [address] Eosinophil, Abs Manual 0.1 10 3/mcL Normal 0.0-0.7 [facility] Comment on above: Performed By: #### B MP, DIFF, CBC, GFR, MORPH ####[place] [address] Lymphocyte %, Manual 23.0 % Normal 20.0-40.0 [facility] Comment on above: Performed By: #### B MP, DIFF, CBC, GFR, MORPH ####[place] [address] Lymphocyte, Abs Manual 2.2 10 3/mcL Normal 0.9-4.3 [facility] Comment on above: Performed By: #### B MP, DIFF, CBC, GFR, MORPH ####[place] [address] Monocyte %, Manual 3.0 % Normal 2.0-13.0 [facility] Comment on above: Performed By: #### B MP, DIFF, CBC, GFR, MORPH ####[place] [address] Monocyte, Abs Manual 0.3 10 3/mcL Normal 0.1-1.4 [facility] Comment on above: Performed By: #### B MP, DIFF, CBC, GFR, MORPH ####[place] [address] Neutrophil %, Manual 68.0 % Normal 50.0-75.0 [facility] Comment on above: Performed By: #### B MP, DIFF, CBC, GFR, MORPH ####[place] [address] Neutrophil, Abs Manual 7.1 10 3/mcL Normal 2.3-8.1 [facility] Comment on above: Performed By: #### B MP, DIFF, CBC, GFR, MORPH ####[place] [address] Nucleated RBC 0.0 /100 WBC Normal [facility] Comment on above: Performed By: #### B MP, DIFF, CBC, GFR, MORPH ####[place] [address] .Morphon 07-08-2024 Anisocytosis Ql (Bld) 1+ Normal [facility] Comment on above: Performed By: #### B MP, DIFF, CBC, GFR, MORPH ####[place] [address] Platelet Estimate Slt Increased Normal [facility] Comment on above: Performed By: #### B MP, DIFF, CBC, GFR, MORPH ####[place] [address] BMPon 07-08-2024 BUN/Creatinine Ratio Unable to Calculate Normal 10.0-2 2.0 [facility] Comment on above: Result Comment: Unab le to calculate this test result accurately. Results used to calculate this test are outside the reportable range. Performed By: #### B MP, DIFF, CBC, GFR, MORPH ####[address] [address] Urea nitrogen [Mass/Vol] mg/dL Low 8.0-22.0 [facility] Comment on above: Performed By: #### B MP, DIFF, CBC, GFR, MORPH ####[address] [address] Calcium [Mass/Vol] 9.4 mg/dL Normal 8.7-10.4 [facility] Comment on above: Performed By: #### B MP, DIFF, CBC, GFR, MORPH ####[address] [address] Chloride [Moles/Vol] 110 mmol/L Normal 98-110 [facility] Comment on above: Performed By: #### B MP, DIFF, CBC, GFR, MORPH ####[place] [address] CO2 [Moles/Vol] 24 mmol/L Normal 22-32 [facility] Comment on above: Performed By: #### B MP, DIFF, CBC, GFR, MORPH ####[place] [address] Creatinine [Mass/Vol] 0.54 mg/dL Normal 0.50-1.20 [facility] Comment on above: Result Comment: Test ing performed on [employer] analyzer using enzymatic creatinine methodology. Performed By: #### B MP, DIFF, CBC, GFR, MORPH ####[address] [address] Electrolyte Balance 9.0 mEq/L Normal 4.0-15.0 [facility] Comment on above: Performed By: #### B MP, DIFF, CBC, GFR, MORPH ####[address] [address] Glucose [Mass/Vol] 93 mg/dL Normal 70-110 [facility] Comment on above: Performed By: #### B MP, DIFF, CBC, GFR, MORPH ####[place] [address] Potassium [Moles/Vol] 3.7 mmol/L Normal 3.5-5.0 [facility] Comment on above: Performed By: #### B MP, DIFF, CBC, GFR, MORPH ####[place] [address] Sodium [Moles/Vol] 143 mmol/L Normal 136-145 [facility] Comment on above: Performed By: #### B MP, DIFF, CBC, GFR, MORPH ####[place] [address] CBCon 07-08-2024 Erythrocyte distribution width (RBC) [Ratio] 14.0 % Normal 11.5-15.5 [facility] Comment on above: Performed By: #### B MP, DIFF, CBC, GFR, MORPH ####[place] [address] Hematocrit (Bld) [Volume fraction] 30.5 % Low 34.0-46.0 [facility] Comment on above: Performed By: #### B MP, DIFF, CBC, GFR, MORPH ####[place] [address] Hgb 10.3 G/dL Low 12.0-16.0 [facility] Comment on above: Performed By: #### B MP, DIFF, CBC, GFR, MORPH ####[place] [address] MCH (RBC) [Entitic mass] 29.2 pg Normal 27.0-33.0 [facility] Comment on above: Performed By: #### B MP, DIFF, CBC, GFR, MORPH ####[place] [address] MCHC 33.8 G/dL Normal 32.0-36.0 [facility] Comment on above: Performed By: #### B MP, DIFF, CBC, GFR, MORPH ####[place] [address] MCV (RBC) [Entitic vol] 86.2 fL Normal 80.0-99.0 [facility] Comment on above: Performed By: #### B MP, DIFF, CBC, GFR, MORPH ####[facility] [place] [address] Platelet 496 10 3/mcL High 150-450 [facility] Comment on above: Performed By: #### B MP, DIFF, CBC, GFR, MORPH ####[facility] [place] [address] Platelet mean volume (Bld) [Entitic vol] 6.6 fL Normal 6.6-10.5 [facility] Comment on above: Performed By: #### B MP, DIFF, CBC, GFR, MORPH ####[place] [id number] [place] [address] RBC 3.54 10 6/mcL Low 4.10-5.30 [facility] Comment on above: Performed By: #### B MP, DIFF, CBC, GFR, MORPH ####[place] [id number] [place] [address] WBC 9.7 10 3/mcL Normal 4.5-10.8 [facility] Comment on above: Performed By: #### B MP, DIFF, CBC, GFR, MORPH ####[place] [address] LABORATORYOrdered By: SYSTEM SYSTEM on 07-08-2024 Anisocytosis Ql (Bld) 1+ *NA* (07/08/24 10:53 AM) Invalid Interpretation Code AH Workflow SS Band form neutrophils/100 WBC (Bld) 5.0 % Normal 0.0 - 5.0 % AH Workflow SS Basophils (Bld) [#/Vol] 0.0 103/mcL Normal 0.0 - 0.3 10^3/mcL AH Workflow SS Basophils/100 WBC (Bld) 0.0 % Normal 0.0 - 2.5 % AH Workflow SS Calcium [Mass/Vol] 9.4 mg/dL Normal 8.7 - 10. 4 mg/dL ADM SS Chloride [Moles/Vol] 110 mmol/L Normal 98 - 11 0 mEq/L ADM SS CO2 [Moles/Vol] 24 mmol/L Normal 22 - 32 mEq/L ADM SS Creatinine [Mass/Vol] 0.54 mg/dL Normal 0.50 - 1.20 mg/dL ADM SS Comment on above: Interpretive Data: T esting performed on [employer] analyzer using enzymatic creatinine methodology. Electrolyte Balance 9.0 mEq/L Normal 4.0 - 15 .0 mEq/L ADM SS Eosinophils (Bld) [#/Vol] 0.1 103/mcL Normal 0.0 - 0.7 10^3/mcL Workflow SS Eosinophils/100 WBC (Bld) 1.0 % Normal 0.0 - 6.0 % Workflow SS Erythrocyte distribution width (RBC) [Ratio] 14.0 % Normal 11.5 - 15.5 % Workflow SS Estimated Glomerular Filtration Rate ml/min/1.73sqm Invalid Interpretation Code Chemistry S Comment on above: Interpretive Data: Stages of Chronic Kidney Disease (CKD) Stage Description eGFR(ml/min/1.73 sq.m.) CKD 1 Normal kidney function or >=90 normal kindney function with possible kidney damage (ex. Proteinuria) CKD 2 Kidney damage with mild loss 60-89 of kidney function CKD 3a Mild to moderate loss of kidney 45-59 function CKD 3b Moderate to severe loss of 30-44 of kindey function CKD 4 Severe loss of kidney function 15-29 CKD 5 Kidney failure <15 Note: (go live 2024) the eGFR calculation was updated to the 2020 CKD-EPI creatinine equation without a race factor to calculate the eGFR results. Glucose [Mass/Vol] 93 mg/dL Normal 70 - 110 mg/dL ADM SS Hematocrit (Bld) [Volume fraction] 30.5 % Low 34.0 - 46.0 % Workflow SS Hemoglobin (Bld) [Mass/Vol] 10.3 G/dL Low 12.0 - 16.0 G/dL Workflow SS Lymphocytes (Bld) [#/Vol] 2.2 103/mcL Normal 0.9 - 4.3 10^3/mcL Workflow SS Lymphocytes/100 WBC (Bld) 23.0 % Normal 20.0 - 40.0 % Workflow SS MCH (RBC) [Entitic mass] 29.2 pg Normal 27.0 - 33.0 pg Workflow SS MCHC 33.8 G/dL Normal 32.0 - 36.0 G/dL Workflow SS MCV (RBC) [Entitic vol] 86.2 fL Normal 80.0 - 99.0 fL AH Workflow SS Monocytes (Bld) [#/Vol] 0.3 103/mcL Normal 0.1 - 1.4 10^3/mcL AH Workflow SS Monocytes/100 WBC (Bld) 3.0 % Normal 2.0 - 13.0 % AH Workflow SS Neutrophils (Bld) [#/Vol] 7.1 103/mcL Normal 2.3 - 8.1 10^3/mcL AH Workflow SS Neutrophils/100 WBC (Bld) 68.0 % Normal 50.0 - 75.0 % AH Workflow SS Nucleated RBC 0.0 /100 WBC Invalid Interpretation Code AH Workflow SS Platelet mean volume (Bld) [Entitic vol] 6.6 fL Normal 6.6 - 10.5 fL AH Workflow SS Platelets (Bld) [#/Vol] 496 103/mcL High 150 - 450 10^3/mcL AH Workflow SS Platelets LM Ql (Bld) Slt Increased *NA* (07/08/24 10:53 AM) Invalid Interpretation Code AH Workflow SS Potassium [Moles/Vol] 3.7 mmol/L Normal 3.5 - 5.0 mEq/L AH ADM SS RBC (Bld) [#/Vol] 3.54 106/mcL Low 4.10 - 5.3 0 10^6/mcL AH Workflow SS Sodium [Moles/Vol] 143 mmol/L Normal 136 - 145 mEq/L AH ADM SS WBC (Bld) [#/Vol] 9.7 103/mcL Normal 4.5 - 10.8 10^3/mcL AH Workflow SS LABORATORYOrdered By: Sully crystal on 07-08-2024 Urea nitrogen [Mass/Vol] mg/dL Low 8.0 - 22.0 mg/dL Chemistry S Urea nitrogen/Creatinine [Mass ratio] Unable to Calculate Invalid Interpretation Code 10.0 - 22.0 Chemistry S Comment on above: Result Comment: Unab le to calculate this test result accurately. Results used to calculate this test are outside the reportable range. .Auto Diffon 07-07-2024 Basophil, Absolute 0.0 10 3/mcL Normal 0.0-0.3 [facility] Comment on above: Performed By: #### M ORPH, GFR, BMP, ANEU, DIFF, CBC, ADIFF ####[address] [address] Basophils/100 WBC (Bld) 0.3 % Normal 0.0-2.5 [facility] Comment on above: Performed By: #### M ORPH, GFR, BMP, ANEU, DIFF, CBC, ADIFF ####[address] [address] Eosinophil, Absolute 0.1 10 3/mcL Normal 0.0-0.7 [facility] Comment on above: Performed By: #### M ORPH, GFR, BMP, ANEU, DIFF, CBC, ADIFF ####[address] [address] Eosinophils/100 WBC (Bld) 0.6 % Normal 0.0-6.0 [facility] Comment on above: Performed By: #### M ORPH, GFR, BMP, ANEU, DIFF, CBC, ADIFF ####[address] [address] Lymphocyte, Absolute 2.7 10 3/mcL Normal 0.9-4.3 [facility] Comment on above: Performed By: #### M ORPH, GFR, BMP, ANEU, DIFF, CBC, ADIFF ####[address] [address] Lymphocytes/100 WBC (Bld) 17.5 % Low 20.0-40.0 [facility] Comment on above: Performed By: #### M ORPH, GFR, BMP, ANEU, DIFF, CBC, ADIFF ####[address] [address] Monocyte, Absolute 0.6 10 3/mcL Normal 0.1-1.4 [facility] Comment on above: Performed By: #### M ORPH, GFR, BMP, ANEU, DIFF, CBC, ADIFF ####[address] [address] Monocytes/100 WBC (Bld) 3.9 % Normal 2.0-13.0 [facility] Comment on above: Performed By: #### M ORPH, GFR, BMP, ANEU, DIFF, CBC, ADIFF ####[address] [address] Neutrophils/100 WBC (Bld) 77.7 % High 50.0-75.0 [facility] Comment on above: Performed By: #### M ORPH, GFR, BMP, ANEU, DIFF, CBC, ADIFF ####[place] [address] .GFRon 07-07-2024 GFR/1.73 sq M.predicted among non-blacks MDRD (S/P/Bld) [Vol rate/Area] mL/min/{1.73_m2} Normal [facility] Comment on above: Result Comment: Stages of Chronic Kidney Disease (CKD) Stage Description eGFR(ml/min/1.73 sq.m.) CKD 1 Normal kidney function or >=90 normal kindney function with possible kidney damage (ex. Proteinuria) CKD 2 Kidney damage with mild loss 60-89 of kidney function CKD 3a Mild to moderate loss of kidney 45-59 function CKD 3b Moderate to severe loss of 30-44 of kindey function CKD 4 Severe loss of kidney function 15-29 CKD 5 Kidney failure <15 Note: (go live 2024) the eGFR calculation was updated to the 2020 CKD-EPI creatinine equation without a race factor to calculate the eGFR results. Performed By: #### M ORPH, GFR, BMP, ANEU, DIFF, CBC, ADIFF ####[place] [id number] .Manual Diffon 07-07-2024 Bands 2.0 % Normal 0.0-5.0 [facility] Comment on above: Performed By: #### M ORPH, GFR, BMP, ANEU, DIFF, CBC, ADIFF ####[place] [id number] Basophil %, Manual 0.0 % Normal 0.0-2.5 [facility] Comment on above: Performed By: #### M ORPH, GFR, BMP, ANEU, DIFF, CBC, ADIFF ####[place] [id number] Basophil, Abs Manual 0.0 10 3/mcL Normal 0.0-0.3 [facility] Comment on above: Performed By: #### M ORPH, GFR, BMP, ANEU, DIFF, CBC, ADIFF ####[address] [address] [address] Eosinophil %, Manual 1.0 % Normal 0.0-6.0 [facility] Comment on above: Performed By: #### M ORPH, GFR, BMP, ANEU, DIFF, CBC, ADIFF ####[address] [address] Eosinophil, Abs Manual 0.2 10 3/mcL Normal 0.0-0.7 [facility] Comment on above: Performed By: #### M ORPH, GFR, BMP, ANEU, DIFF, CBC, ADIFF ####[address] [address] Lymphocyte %, Manual 18.0 % Low 20.0-40.0 [facility] Comment on above: Performed By: #### M ORPH, GFR, BMP, ANEU, DIFF, CBC, ADIFF ####[address] [address] Lymphocyte, Abs Manual 2.7 10 3/mcL Normal 0.9-4.3 [facility] Comment on above: Performed By: #### M ORPH, GFR, BMP, ANEU, DIFF, CBC, ADIFF ####[address] [address] Metamyelocyte 1.0 % Normal [facility] Comment on above: Performed By: #### M ORPH, GFR, BMP, ANEU, DIFF, CBC, ADIFF ####[address] [address] Monocyte %, Manual 4.0 % Normal 2.0-13.0 [facility] Comment on above: Performed By: #### M ORPH, GFR, BMP, ANEU, DIFF, CBC, ADIFF ####[address] [address] Monocyte, Abs Manual 0.6 10 3/mcL Normal 0.1-1.4 [facility] Comment on above: Performed By: #### M ORPH, GFR, BMP, ANEU, DIFF, CBC, ADIFF ####[address] [address] Neutrophil %, Manual 74.0 % Normal 50.0-75.0 [facility] Comment on above: Performed By: #### M ORPH, GFR, BMP, ANEU, DIFF, CBC, ADIFF ####[place] [address] Neutrophil, Abs Manual 11.5 10 3/mcL High 2.3-8.1 [facility] Comment on above: Performed By: #### M ORPH, GFR, BMP, ANEU, DIFF, CBC, ADIFF ####[place] [address] Nucleated RBC 0.0 /100 WBC Normal [facility] Comment on above: Performed By: #### M ORPH, GFR, BMP, ANEU, DIFF, CBC, ADIFF ####[place] [address] .Morphon 07-07-2024 Platelet Estimate Increased Normal [facility] Comment on above: Performed By: #### M ORPH, GFR, BMP, ANEU, DIFF, CBC, ADIFF ####[place] [address] RBC morphology finding Nom (Bld) Normal Normal [facility] Comment on above: Performed By: #### M ORPH, GFR, BMP, ANEU, DIFF, CBC, ADIFF ####[place] [address] Toxic Gran 1+ Normal [facility] Comment on above: Performed By: #### M ORPH, GFR, BMP, ANEU, DIFF, CBC, ADIFF ####[place] [address] .NEUABSon 07-07-2024 Neutrophil, Absolute 11.8 10 3/mcL High 2.3-8.1 [facility] Comment on above: Performed By: #### M ORPH, GFR, BMP, ANEU, DIFF, CBC, ADIFF ####[place] [address] BMPon 07-07-2024 BUN/Creatinine Ratio 10.0 ratio Normal 10.0-22.0 [facility] Comment on above: Performed By: #### M ORPH, GFR, BMP, ANEU, DIFF, CBC, ADIFF ####[address] [address] Calcium [Mass/Vol] 8.5 mg/dL Low 8.7-10.4 [facility] Comment on above: Performed By: #### M ORPH, GFR, BMP, ANEU, DIFF, CBC, ADIFF ####[address] [address] Chloride [Moles/Vol] 110 mmol/L Normal 98-110 [facility] Comment on above: Performed By: #### M ORPH, GFR, BMP, ANEU, DIFF, CBC, ADIFF ####[address] [address] CO2 [Moles/Vol] 23 mmol/L Normal 22-32 [facility] Comment on above: Performed By: #### M ORPH, GFR, BMP, ANEU, DIFF, CBC, ADIFF ####[address] [address] Creatinine [Mass/Vol] 0.50 mg/dL Normal 0.50-1.20 [facility] Comment on above: Result Comment: Test ing performed on [employer] analyzer using enzymatic creatinine methodology. Performed By: #### M ORPH, GFR, BMP, ANEU, DIFF, CBC, ADIFF ####[address] [address] Electrolyte Balance 9.0 mEq/L Normal 4.0-15.0 [facility] Comment on above: Performed By: #### M ORPH, GFR, BMP, ANEU, DIFF, CBC, ADIFF ####[address] [address] Glucose [Mass/Vol] 97 mg/dL Normal 70-110 [facility] Comment on above: Performed By: #### M ORPH, GFR, BMP, ANEU, DIFF, CBC, ADIFF ####[address] [address] Potassium [Moles/Vol] 4.0 mmol/L Normal 3.5-5.0 [facility] Comment on above: Performed By: #### M ORPH, GFR, BMP, ANEU, DIFF, CBC, ADIFF ####[place] [address] Sodium [Moles/Vol] 142 mmol/L Normal 136-145 [facility] Comment on above: Performed By: #### M ORPH, GFR, BMP, ANEU, DIFF, CBC, ADIFF ####[place] [address] Urea nitrogen [Mass/Vol] 5.0 mg/dL Low 8.0-22.0 [facility] Comment on above: Performed By: #### M ORPH, GFR, BMP, ANEU, DIFF, CBC, ADIFF ####[place] [address] CBCon 07-07-2024 Erythrocyte distribution width (RBC) [Ratio] 14.1 % Normal 11.5-15.5 [facility] Comment on above: Performed By: #### M ORPH, GFR, BMP, ANEU, DIFF, CBC, ADIFF ####[place] [address] Hematocrit (Bld) [Volume fraction] 31.0 % Low 34.0-46.0 [facility] Comment on above: Performed By: #### M ORPH, GFR, BMP, ANEU, DIFF, CBC, ADIFF ####[place] [address] Hgb 10.2 G/dL Low 12.0-16.0 [facility] Comment on above: Performed By: #### M ORPH, GFR, BMP, ANEU, DIFF, CBC, ADIFF ####[place] [address] MCH (RBC) [Entitic mass] 28.7 pg Normal 27.0-33.0 [facility] Comment on above: Performed By: #### M ORPH, GFR, BMP, ANEU, DIFF, CBC, ADIFF ####[place] [address] MCHC 33.0 G/dL Normal 32.0-36.0 [facility] Comment on above: Performed By: #### M ORPH, GFR, BMP, ANEU, DIFF, CBC, ADIFF ####[place] [address] MCV (RBC) [Entitic vol] 86.8 fL Normal 80.0-99.0 [facility] Comment on above: Performed By: #### M ORPH, GFR, BMP, ANEU, DIFF, CBC, ADIFF ####[place] [address] Platelet 554 10 3/mcL High 150-450 [facility] Comment on above: Performed By: #### M ORPH, GFR, BMP, ANEU, DIFF, CBC, ADIFF ####[place] [address] Platelet mean volume (Bld) [Entitic vol] 7.2 fL Normal 6.6-10.5 [facility] Comment on above: Performed By: #### M ORPH, GFR, BMP, ANEU, DIFF, CBC, ADIFF ####[place] [address] RBC 3.57 10 6/mcL Low 4.10-5.30 [facility] Comment on above: Performed By: #### M ORPH, GFR, BMP, ANEU, DIFF, CBC, ADIFF ####[place] [address] WBC 15.2 10 3/mcL High 4.5-10.8 [facility] Comment on above: Performed By: #### M ORPH, GFR, BMP, ANEU, DIFF, CBC, ADIFF ####[place] [address] LABORATORYOrdered By: SYSTEM SYSTEM on 07-07-2024 Band form neutrophils/100 WBC (Bld) 2.0 % Normal 0.0 - 5.0 % AH Workflow SS Basophils/100 WBC (Bld) 0.3 % Normal 0.0 - 2.5 % AH Workflow SS Basophils/100 WBC (Bld) 0.0 % Normal 0.0 - 2.5 % AH Workflow SS Calcium [Mass/Vol] 8.5 mg/dL Low 8.7 - 10. 4 mg/dL AH ADM SS Chloride [Moles/Vol] 110 mmol/L Normal 98 - 11 0 mEq/L AH ADM SS CO2 [Moles/Vol] 23 mmol/L Normal 22 - 32 mEq/L ADM SS Creatinine [Mass/Vol] 0.50 mg/dL Normal 0.50 - 1.20 mg/dL AH ADM SS Comment on above: Interpretive Data: T esting performed on [employer] analyzer using enzymatic creatinine methodology. Electrolyte Balance 9.0 mEq/L Normal 4.0 - 15 .0 mEq/L ADM SS Eosinophils (Bld) [#/Vol] 0.1 103/mcL Normal 0.0 - 0.7 10^3/mcL AH Workflow SS Eosinophils (Bld) [#/Vol] 0.2 103/mcL Normal 0.0 - 0.7 10^3/mcL AH Workflow SS Eosinophils/100 WBC (Bld) 0.6 % Normal 0.0 - 6.0 % AH Workflow SS Eosinophils/100 WBC (Bld) 1.0 % Normal 0.0 - 6.0 % Workflow SS Erythrocyte distribution width (RBC) [Ratio] 14.1 % Normal 11.5 - 15.5 % Workflow SS Estimated Glomerular Filtration Rate ml/min/1.73sqm Invalid Interpretation Code Chemistry S Comment on above: Interpretive Data: Stages of Chronic Kidney Disease (CKD) Stage Description eGFR(ml/min/1.73 sq.m.) CKD 1 Normal kidney function or >=90 normal kindney function with possible kidney damage (ex. Proteinuria) CKD 2 Kidney damage with mild loss 60-89 of kidney function CKD 3a Mild to moderate loss of kidney 45-59 function CKD 3b Moderate to severe loss of 30-44 of kindey function CKD 4 Severe loss of kidney function 15-29 CKD 5 Kidney failure <15 Note: (go live 2024) the eGFR calculation was updated to the 2020 CKD-EPI creatinine equation without a race factor to calculate the eGFR results. Glucose [Mass/Vol] 97 mg/dL Normal 70 - 110 mg/dL ADM SS Hematocrit (Bld) [Volume fraction] 31.0 % Low 34.0 - 46.0 % Workflow SS Hemoglobin (Bld) [Mass/Vol] 10.2 G/dL Low 12.0 - 16.0 G/dL AH Workflow SS Lymphocytes/100 WBC (Bld) 17.5 % Low 20.0 - 40.0 % Workflow SS Lymphocytes/100 WBC (Bld) 18.0 % Low 20.0 - 40.0 % AH Workflow SS MCH (RBC) [Entitic mass] 28.7 pg Normal 27.0 - 33.0 pg AH Workflow SS MCHC 33.0 G/dL Normal 32.0 - 36.0 G/dL AH Workflow SS MCV (RBC) [Entitic vol] 86.8 fL Normal 80.0 - 99.0 fL AH Workflow SS Metamyelocytes/100 WBC (Bld) 1.0 % Invalid Interpretation Code AH Workflow SS Monocytes/100 WBC (Bld) 3.9 % Normal 2.0 - 13.0 % AH Workflow SS Monocytes/100 WBC (Bld) 4.0 % Normal 2.0 - 13.0 % AH Workflow SS Neutrophils (Bld) [#/Vol] 11.8 103/mcL High 2.3 - 8.1 10^3/mcL AH Workflow SS Neutrophils (Bld) [#/Vol] 11.5 103/mcL High 2.3 - 8.1 10^3/mcL AH Workflow SS Neutrophils/100 WBC (Bld) 77.7 % High 50.0 - 75.0 % AH Workflow SS Neutrophils/100 WBC (Bld) 74.0 % Normal 50.0 - 75.0 % AH Workflow SS Nucleated RBC 0.0 /100 WBC Invalid Interpretation Code AH Workflow SS Platelet mean volume (Bld) [Entitic vol] 7.2 fL Normal 6.6 - 10.5 fL AH Workflow SS Platelets (Bld) [#/Vol] 554 103/mcL High 150 - 450 10^3/mcL AH Workflow SS Platelets LM Ql (Bld) Increased *NA* (07/07/24 6:45 AM) Invalid Interpretation Code AH Workflow SS Potassium [Moles/Vol] 4.0 mmol/L Normal 3.5 - 5.0 mEq/L AH ADM SS RBC (Bld) [#/Vol] 3.57 106/mcL Low 4.10 - 5.3 0 10^6/mcL AH Workflow SS RBC morphology finding Nom (Bld) Normal *NA* (07/07/24 6:45 AM) Invalid Interpretation Code AH Workflow SS Sodium [Moles/Vol] 142 mmol/L Normal 136 - 145 mEq/L AH ADM SS Toxic granules LM Ql (Bld) 1+ *NA* (07/07/24 6:45 AM) Invalid Interpretation Code AH Workflow SS Urea nitrogen [Mass/Vol] 5.0 mg/dL Low 8.0 - 22.0 mg/dL AH ADM SS Urea nitrogen/Creatinine [Mass ratio] 10.0 ratio Normal 10.0 - 22.0 ratio AH ADM SS WBC (Bld) [#/Vol] 15.2 103/mcL High 4.5 - 10.8 10^3/mcL Workflow SS Laboratory - Hematology and Cell countsOrdered By: SYSTEM SYSTEM on 07-07-2024 Basophils (Bld) [#/Vol] 0.0 103/mcL Normal 0.0 - 0.3 10^3/mcL Workflow SS Lymphocytes (Bld) [#/Vol] 2.7 103/mcL Normal 0.9 - 4.3 10^3/mcL Workflow SS Monocytes (Bld) [#/Vol] 0.6 103/mcL Normal 0.1 - 1.4 10^3/mcL Workflow SS .Auto Diffon 07-06-2024 Basophil, Absolute 0.1 10 3/mcL Normal 0.0-0.3 [facility] Comment on above: Performed By: #### C BC, ADIFF, ANEU, SHAYY, LAC #### [address] [address] Basophils/100 WBC (Bld) 0.7 % Normal 0.0-2.5 [facility] Comment on above: Performed By: #### C BC, ADIFF, ANEU, SHAYY, LAC #### [place] [address] [place], [place] [address] Eosinophil, Absolute 0.1 10 3/mcL Normal 0.0-0.7 [facility] Comment on above: Performed By: #### C BC, ADIFF, ANEU, SHAYY, LAC #### [place] [address] [place], [place] [address] Eosinophils/100 WBC (Bld) 0.9 % Normal 0.0-6.0 [facility] Comment on above: Performed By: #### C BC, ADIFF, ANEU, SHAYY, LAC #### [place] [address] [place], [place] [address] Lymphocyte, Absolute 3.3 10 3/mcL Normal 0.9-4.3 [facility] Comment on above: Performed By: #### C BC, ADIFF, ANEU, SHAYY, LAC #### [address] [address] Lymphocytes/100 WBC (Bld) 29.3 % Normal 20.0-40.0 [facility] Comment on above: Performed By: #### C BC, ADIFF, ANEU, SHAYY, LAC #### [address] [address] Monocyte, Absolute 0.9 10 3/mcL Normal 0.1-1.4 [facility] Comment on above: Performed By: #### C BC, ADIFF, ANEU, SHAYY, LAC #### [address] [address] Monocytes/100 WBC (Bld) 8.0 % Normal 2.0-13.0 [facility] Comment on above: Performed By: #### C BC, ADIFF, ANEU, SHAYY, LAC #### [address] [address] Neutrophils/100 WBC (Bld) 61.1 % Normal 50.0-75.0 [facility] Comment on above: Performed By: #### C BC, ADIFF, ANEU, SHAYY, LAC #### [address] [address] .GFRon 07-06-2024 GFR/1.73 sq M.predicted among non-blacks MDRD (S/P/Bld) [Vol rate/Area] mL/min/{1.73_m2} Normal [facility] Comment on above: Result Comment: Stages of Chronic Kidney Disease (CKD) Stage Description eGFR(ml/min/1.73 sq.m.) CKD 1 Normal kidney function or >=90 normal kindney function with possible kidney damage (ex. Proteinuria) CKD 2 Kidney damage with mild loss 60-89 of kidney function CKD 3a Mild to moderate loss of kidney 45-59 function CKD 3b Moderate to severe loss of 30-44 of kindey function CKD 4 Severe loss of kidney function 15-29 CKD 5 Kidney failure <15 Note: (go live 2024) the eGFR calculation was updated to the 2020 CKD-EPI creatinine equation without a race factor to calculate the eGFR results. Performed By: #### C BC, ADIFF, ANEU, SHAYY, LAC #### [place] [address] .MDWon 07-06-2024 Monocyte Distribution Width 17.10 Normal 0.00-20.00 [facility] Comment on above: Result Comment: For ED adult patients suspected of sepsis, MDW<=20.0 does not rule out sepsis or risk of sepsis Performed By: #### C BC, ADIFF, ANEU, SHAYY, LAC #### [place] [address] .Morphon 07-06-2024 Platelet Estimate Increased Normal [facility] Comment on above: Performed By: #### C BC, ADIFF, ANEU, SHAYY, LAC #### [place] [address] RBC morphology finding Nom (Bld) Normal Normal [facility] Comment on above: Performed By: #### C BC, ADIFF, ANEU, SHAYY, LAC #### [place] [address] .NEUABSon 07-06-2024 Neutrophil, Absolute 7.0 10 3/mcL Normal 2.3-8.1 [facility] Comment on above: Performed By: #### C BC, ADIFF, ANEU, SHAYY, LAC #### [place] [address] BMPon 07-06-2024 BUN/Creatinine Ratio 16 ratio Normal 7-27 [facility] Comment on above: Performed By: #### A TRISTIAN, CBC, ADIFF, MDW, BMP, LAC, GFR, MORPH ####[place] [address] Calcium [Mass/Vol] 9.0 mg/dL Normal 8.4-10.2 [facility] Comment on above: Performed By: #### A TRISTIAN, CBC, ADIFF, MDW, BMP, LAC, GFR, MORPH ####[id number] [place], [place] [address] Chloride [Moles/Vol] 106 mmol/L Normal 98-107 [facility] Comment on above: Performed By: #### A TRISTIAN, CBC, ADIFF, MDW, BMP, LAC, GFR, MORPH ####[id number] [place], [place] [address] CO2 [Moles/Vol] 28 mmol/L Normal 22-29 [facility] Comment on above: Performed By: #### A TRISTIAN, CBC, ADIFF, MDW, BMP, LAC, GFR, MORPH ####[place] [address] [place], [place] [address] Creatinine [Mass/Vol] 0.56 mg/dL Normal 0.51-0.95 [facility] Comment on above: Performed By: #### A TRISTIAN, CBC, ADIFF, MDW, BMP, LAC, GFR, MORPH ####[address] [address] Electrolyte Balance 9.0 mEq/L Normal 4.0-15.0 [facility] Comment on above: Performed By: #### A TRISTIAN, CBC, ADIFF, MDW, BMP, LAC, GFR, MORPH ####[address] [address] Glucose [Mass/Vol] 97 mg/dL Normal 70-105 [facility] Comment on above: Performed By: #### A TRISTIAN, CBC, ADIFF, MDW, BMP, LAC, GFR, MORPH ####[address] [address] Potassium [Moles/Vol] 3.5 mmol/L Normal 3.5-5.1 [facility] Comment on above: Performed By: #### A TRISTIAN, CBC, ADIFF, MDW, BMP, LAC, GFR, MORPH ####[address] [address] Sodium [Moles/Vol] 143 mmol/L Normal 136-145 [facility] Comment on above: Performed By: #### A TRISTIAN, CBC, ADIFF, MDW, BMP, LAC, GFR, MORPH ####[facility] [place] [address] Urea nitrogen [Mass/Vol] 9 mg/dL Normal 7-18 [facility] Comment on above: Performed By: #### A TRISTIAN, CBC, ADIFF, MDW, BMP, LAC, GFR, MORPH ####[place] [id number] CBCon 07-06-2024 Erythrocyte distribution width (RBC) [Ratio] 14.1 % Normal 11.5-15.5 [facility] Comment on above: Performed By: #### A TRISTIAN, CBC, ADIFF, MDW, BMP, LAC, GFR, MORPH ####[place] [address] [place] [address] Hematocrit (Bld) [Volume fraction] 31.7 % Low 34.0-46.0 [facility] Comment on above: Performed By: #### A TRISTIAN, CBC, ADIFF, MDW, BMP, LAC, GFR, MORPH ####[place] [address] Hgb 10.6 G/dL Low 12.0-16.0 [facility] Comment on above: Performed By: #### A TRISTIAN, CBC, ADIFF, MDW, BMP, LAC, GFR, MORPH ####[address] [address] MCH (RBC) [Entitic mass] 28.6 pg Normal 27.0-33.0 [facility] Comment on above: Performed By: #### A TRISTIAN, CBC, ADIFF, MDW, BMP, LAC, GFR, MORPH ####[place] [address] MCHC 33.3 G/dL Normal 32.0-36.0 [facility] Comment on above: Performed By: #### A TRISTIAN, CBC, ADIFF, MDW, BMP, LAC, GFR, MORPH ####[place] [id number] MCV (RBC) [Entitic vol] 86.0 fL Normal 80.0-99.0 [facility] Comment on above: Performed By: #### A TRISTIAN, CBC, ADIFF, MDW, BMP, LAC, GFR, MORPH ####[place] [address] [place], [place] [address] Platelet 578 10 3/mcL High 150-450 [facility] Comment on above: Performed By: #### A TRISTIAN, CBC, ADIFF, MDW, BMP, LAC, GFR, MORPH ####[place] [id number] [place], [place] [address] Platelet mean volume (Bld) [Entitic vol] 7.0 fL Normal 6.6-10.5 [facility] Comment on above: Performed By: #### A TRISTIAN, CBC, ADIFF, MDW, BMP, LAC, GFR, MORPH ####[place] [id number] [place], [place] [address] RBC 3.69 10 6/mcL Low 4.10-5.30 [facility] Comment on above: Performed By: #### A TRISTIAN, CBC, ADIFF, MDW, BMP, LAC, GFR, MORPH ####[place] [id number] [place], [place] [address] WBC 11.4 10 3/mcL High 4.5-10.8 [facility] Comment on above: Performed By: #### A TRISTIAN, CBC, ADIFF, MDW, BMP, LAC, GFR, MORPH ####[place] [address] [place], [place] [address] CT ABD/PELVIS W/ IV CONTRAST ONLYon 07-06-2024 CT ABD/PELVIS W/ IV CONTRAST ONLY ORIGINAL EXAMINATION: CT OF THE ABDOMEN AND PELVIS WITH CONTRAST07/06/2024 8:16 pm TECHNIQUE: CT of the abdomen and pelvis was performed with the administration of intravenous contrast. Multiplanar reformatted images are provided for review. Automated exposure control, iterative reconstruction, and/or weight based adjustment of the mA/kV was utilized to reduce the radiation dose to as low as reasonably achievable. COMPARISON: CT abdomen pelvis 06/26/2024 HISTORY: ORDERING SYSTEM PROVIDED HISTORY: Reason for Exam: pt had appy removed 4 weeks ago. had stitches removed on Sunday, and had blood coming from wound area today. mot really painful pain FINDINGS: Trace bilateral pleural effusions with adjacent atelectasis. No significant pericardial effusion.. Left kidney is unremarkable. Right-sided mild pelvicaliectasis and proximal to mid ureteric prominence in the visualized part, up to the level of mesenteric inflammation as described below. Nonobstructing right renal calculi. Urinary bladder is partially distended, no hyperdense calculus within. Mild fluid in presacral region. Mild fluid in pelvis. Appendix is surgically absent. Ill-defined peripherally enhancing collection seen at postoperative site in right lower quadrant region, difficult to measure accurately, extends cranially and towards the left side along the mesentery. (Series 3, image 264). Adjacent inflammatory/phlegmon ous changes with fat stranding and tethering of small bowel loops. This region is not well delineated from the right mid ureter, which demonstrates proximal mild dilatation. There is mid grade dilatation of proximal to mid small bowel loops with air-fluid levels within. Uterine fundus is closely related to the above described inflammatory changes/abscess. Another smaller peripherally enhancing abscess measuring 2.6 x 1.2 cm seen in right hepatic subcapsular region at lower pole of right lobe of liver with adjacent fascial thickening and inflammation (series 3, image 138). Postoperative changes of laparotomy in midline anterior abdominal wall with a peripherally hyperdense collection measuring 1.5 x 3 2 cm. Linear hyperdensity within this collection, suspect surgical material/suture. Adjacent air foci are likely related to external communication. Mild mesenteric and retroperitoneal lymphadenopathy, likely reactive. IMPRESSION: Postoperative side inflammatory/phlegmon ous changes with surgical site and intra-abdominal fluid collections extending cranially along the mesentery, concerning for abscess. There is tethering of bowel loops in this region with small bowel obstruction. The mid right ureter and uterine fundus and right adnexa are not well delineated from this process. Smaller right hepatic subcapsular fluid collection/abscess. Trace bilateral pleural effusions and adjacent atelectasis are stable. I have personally reviewed the images of this examination and agree with the resident's findings and interpretation. Interpreted by: Ramses Fair Preliminary Report By: Foreign G[employer] Electronically signed By Ramses Fair Dictated Date: 07/06/2024 8:22:35 PM Prelim Date: 07/06/2024 8:41:07 PM Sign Date: 07/06/2024 8:54:56 PM Ordering Provider: SCOTT Orosco [facility] LABORATORYOrdered By: Victor Manuel Waggoner on 07-06-2024 Appearance (U) Cloudy *ABN* (07/06/24 9:56 PM) Invalid Interpretation Code Clear AO Auto Urine SS Bilirubin Ql (U) Negative (07/06/24 9:56 PM) Normal Negative AO Auto Urine SS Color (U) Red *ABN* (07/06/24 9:56 PM) Invalid Interpretation Code AO Auto Urine SS Glucose Test strip (U) [Mass/Vol] Negative Normal Negative AO Auto Urine SS Hemoglobin Auto test strip (U) [Mass/Vol] Large *ABN* (07/06/24 9:56 PM) Invalid Interpretation Code Negative AO Auto Urine SS Ketones Ql (U) Negative Normal Negative AO Auto Ur ine SS UA Leuk Est Trace (07/06/24 9:56 PM) Normal Negative AO Auto Urine SS UA Nitrite Negative (07/06/24 9:56 PM) Normal Negative AO Auto Urine SS UA pH 7.0 (07/06/24 9:56 PM) Normal 5.0 - 8.0 AO Auto Urine SS UA Protein Trace mg/dL Normal Negative AO Auto Urine SS UA RBC 50-100 /HPF Invalid Interpretation Code 0-2 AO Auto Urine SS UA Spec Grav <=1.005 *ABN* (07/06/24 9:56 PM) Invalid Interpretation Code 1.015-1.025 AO Auto Urine SS UA Specimen Type Clean Catch (07/06/24 9:56 PM) Normal AO Auto Urine SS UA Squam Epithelial 3-5 /HPF Normal 0-20 AO Au to Urine SS UA Urobilinogen 0.2 E.U./dL Normal 0.2-1.0 AO Auto Urine SS WBC LM.HPF (Urine sed) [#/Area] 0-2 /HPF Normal 0-5 AO Auto Urine SS HCG ( test) Ql (U) Negative (07/06/24 7:25 PM) Normal AO Rapid Testing SS test (s) int Not detected Invalid Interpretation Code AO Rapid Testing SS LABORATORYOrdered By: SYSTEM SYSTEM on 07-06-2024 Basophils (Bld) [#/Vol] 0.1 103/mcL Normal 0.0 - 0.3 10^3/mcL AO Workflow SS Basophils/100 WBC (Bld) 0.7 % Normal 0.0 - 2.5 % AO Workflow SS Calcium [Mass/Vol] 9.0 mg/dL Normal 8.4 - 10. 2 mg/dL AO ADM SS Chloride [Moles/Vol] 106 mmol/L Normal 98 - 10 7 mmol/L AO ADM SS CO2 [Moles/Vol] 28 mmol/L Normal 22 - 29 mmol/L AO ADM SS Creatinine [Mass/Vol] 0.56 mg/dL Normal 0.51 - 0.95 mg/dL AO ADM SS Electrolyte Balance 9.0 mEq/L Normal 4.0 - 15 .0 mEq/L AO ADM SS Eosinophil, Absolute 0.1 103/mcL Normal 0.0 - 0 .7 10^3/mcL AO Workflow SS Eosinophils/100 WBC (Bld) 0.9 % Normal 0.0 - 6.0 % AO Workflow SS Erythrocyte distribution width (RBC) [Ratio] 14.1 % Normal 11.5 - 15.5 % AO Workflow SS Estimated Glomerular Filtration Rate ml/min/1.73sqm Invalid Interpretation Code AO Chemistry S Comment on above: Interpretive Data: Stages of Chronic Kidney Disease (CKD) Stage Description eGFR(ml/min/1.73 sq.m.) CKD 1 Normal kidney function or >=90 normal kindney function with possible kidney damage (ex. Proteinuria) CKD 2 Kidney damage with mild loss 60-89 of kidney function CKD 3a Mild to moderate loss of kidney 45-59 function CKD 3b Moderate to severe loss of 30-44 of kindey function CKD 4 Severe loss of kidney function 15-29 CKD 5 Kidney failure <15 Note: (go live 2024) the eGFR calculation was updated to the 2020 CKD-EPI creatinine equation without a race factor to calculate the eGFR results. Glucose [Mass/Vol] 97 mg/dL Normal 70 - 105 mg/dL AO ADM SS Hematocrit (Bld) [Volume fraction] 31.7 % Low 34.0 - 46.0 % AO Workflow SS Hemoglobin (Bld) [Mass/Vol] 10.6 G/dL Low 12.0 - 16.0 G/dL AO Workflow SS Lactate [Moles/Vol] 1.0 mmol/L Normal 0.4 - 2. 0 mmol/L AO ADM SS Lymphocytes (Bld) [#/Vol] 3.3 103/mcL Normal 0.9 - 4.3 10^3/mcL AO Workflow SS Lymphocytes/100 WBC (Bld) 29.3 % Normal 20.0 - 40.0 % AO Workflow SS MCH (RBC) [Entitic mass] 28.6 pg Normal 27.0 - 33.0 pg AO Workflow SS MCHC 33.3 G/dL Normal 32.0 - 36.0 G/dL AO Workflow SS MCV (RBC) [Entitic vol] 86.0 fL Normal 80.0 - 99.0 fL AO Workflow SS Monocyte distribution width Auto (Bld) [Entitic vol] 17.10 1 Normal 0.00 - 20.00 AO Workflow SS Comment on above: Result Comment: For ED adult patients suspected of sepsis, MDW<=20.0 does not rule out sepsis or risk of sepsis Monocytes (Bld) [#/Vol] 0.9 103/mcL Normal 0.1 - 1.4 10^3/mcL AO Workflow SS Monocytes/100 WBC (Bld) 8.0 % Normal 2.0 - 13.0 % AO Workflow SS Neutrophils (Bld) [#/Vol] 7.0 103/mcL Normal 2.3 - 8.1 10^3/mcL AO Workflow SS Neutrophils/100 WBC (Bld) 61.1 % Normal 50.0 - 75.0 % AO Workflow SS Platelet mean volume (Bld) [Entitic vol] 7.0 fL Normal 6.6 - 10.5 fL AO Workflow SS Platelets (Bld) [#/Vol] 578 103/mcL High 150 - 450 10^3/mcL AO Workflow SS Platelets LM Ql (Bld) Increased *NA* (07/06/24 6:50 PM) Invalid Interpretation Code AO Workflow SS Potassium [Moles/Vol] 3.5 mmol/L Normal 3.5 - 5.1 mmol/L AO ADM SS RBC (Bld) [#/Vol] 3.69 106/mcL Low 4.10 - 5.3 0 10^6/mcL AO Workflow SS RBC morphology finding Nom (Bld) Normal *NA* (07/06/24 6:50 PM) Invalid Interpretation Code AO Workflow SS Sodium [Moles/Vol] 143 mmol/L Normal 136 - 145 mmol/L AO ADM SS Urea nitrogen [Mass/Vol] 9 mg/dL Normal 7 - 18 mg/dL AO ADM SS Urea nitrogen/Creatinine [Mass ratio] 16 ratio Normal 7 - 27 ratio AO ADM SS WBC (Bld) [#/Vol] 11.4 103/mcL High 4.5 - 10.8 10^3/mcL AO Workflow SS LACon 07-06-2024 Lactic Acid Lvl 1.0 mmol/L Normal 0.4-2.0 [facility] Comment on above: Performed By: #### C BC, ADIFF, ANEU, SHAYY, LAC #### [place] [address] PREGSon 07-06-2024 test (s) Negative Normal [facility] Comment on above: Performed By: #### C BC, ADIFF, ANEU, SHAYY, LAC #### [place] [address] test (s) int Not detected Invalid Interpretation Code [facility] Comment on above: Performed By: #### C BC, ADIFF, ANEU, SHAYY, LAC #### [place] [address] UAon 07-06-2024 Color (U) Red Abnormal [facility] Comment on above: Performed By: #### U A, UAMIC #### [place] [address] Glucose (U) [Mass/Vol] Negative Normal Negative [facility] Comment on above: Performed By: #### U A, UAMIC #### [place] [address] Ketones Ql (U) Negative Normal Negative [facility] Comment on above: Performed By: #### U A, UAMIC #### [place] [address] UA Appear Cloudy Abnormal Clear [facility] Comment on above: Performed By: #### U A, UAMIC #### [place] [address] UA Blood Large Abnormal Negative [facility] Comment on above: Performed By: #### U A, UAMIC #### [place] [address] UA Leuk Est Trace Normal Negative [facility] Comment on above: Performed By: #### U A, UAMIC #### [place] [address] UA Nitrite Negative Normal Negative [facility] Comment on above: Performed By: #### U A, UAMIC #### [place] [address] UA pH 7.0 Normal 5.0 - 8.0 [facility] Comment on above: Performed By: #### U A, UAMIC #### [place] [address] UA Protein Trace Normal Negative [facility] Comment on above: Performed By: #### U A, UAMIC #### [place] [address] UA Spec Grav <=1.005 Abnormal 1.015-1.025 [facility] Comment on above: Performed By: #### U A, UAMIC #### [place] [address] UA Specimen Type Clean Catch Normal [facility] Comment on above: Performed By: #### U A, UAMIC #### [place] [address] UA Urobilinogen 0.2 E.U./dL Normal 0.2-1.0 [facility] Comment on above: Performed By: #### U A, UAMIC #### [place] [address] Urobilinogen (U) [Mass/Vol] Negative Normal Negative [facility] Comment on above: Performed By: #### U A, UAMIC #### [place] [address] UAMICon 07-06-2024 UA RBC 50-100 Abnormal 0-2 [facility] Comment on above: Performed By: #### U A, UAMIC #### [place] [address] UA Squam Epithelial 3-5 Normal 0-20 [facility] Comment on above: Performed By: #### U A, UAMIC #### [facility] [address] [place], [place] [address] UA WBC 0-2 Normal 0-5 [facility] Comment on above: Performed By: #### U A, UAMIC #### [facility] [address] [place], [place] [address] CNPNon 07-01-2024 CNPN Telephone (OBGYWM) KIM NGUYEN ([id number]) 3 F Date Time Provider Department 07/01/24 RICA HUGHES During your visit today, we recorded the following information about you: Aurora Cuevas RN 07/01/2024 3:21 PM Signed Notified by [facility] that patient has miscarriage at [place] at 19 weeks last week. I reached out to patient and had spontaneous missed ab vaginally at [facility] (transferred from [facility]). She has suction DANDC for retained placenta on 06/24/24 after delivery. She remained in hospital x4 days d/t post op infection from appendectomy that she had on 06/16/24. All records available in care everywhere under [facility]. Per NURIA schedule f/u within next 2 weeks. I scheduled her with MADALYN on 07/08/24. Aurora Cuevas RN Allergies As of Date: 07/01/2024 Noted Allergy Reaction CAMPHOR 09/18/2018 14 - Other: See Comments EUCALYPTUS 09/18/2018 14 - Other: See Comments MENTHOL 09/18/2018 14 - Other: See Comments PETROLATUM,WHITE 09/18/2018 14 - Other: See Comments TURPENTINE 11/28/2021 14 - Other: See Comments SAJAN MARTINEZ ([id number]*0 04/22/2019 5 - Intolerance Comments: blistering Date Reviewed: 06/05/2024 Reviewed by: Henrietta Sotomayor MA - Fully Assessed Reason for Visit: Miscarriage [1752] Prescriptions as of 07/01/2024 - aspirin, enteric coated (ECOTRIN LOW STRENGTH) 81 mg EC tablet Take 1 tablet by mouth once daily. - VIT 1-JRWM-EJJRF-DHA ORAL Take by mouth. - pyridoxine HCl, vitamin B6, (PYRIDOXINE ORAL) Take by mouth. - ferrous sulfate (IRON) 325 mg (65 mg iron) tablet Take 325 mg by mouth. - folic acid 400 mcg tablet Take 400 mcg by mouth once daily. - Sulfacetamide Sodium, Acne, 10 % susp APPLY A THIN LAYER TO THE FACE 1-2 TIMES DAILY Problem List As Of Date 07/01/2024 Noted Resolved BMI 36.0-36.9,adult [Z68.36] 05/06/2024 Encounter for supervision of normal first pregn*05/06/2024 UTI (urinary tract infection) in , ant*05/07/2024 Encounter Status:Closed by AURORA CUEVAS on 07/01/24 Normal [facility] .Auto Diffon 06-27-2024 Basophil, Absolute 0.0 10 3/mcL Normal 0.0-0.3 [facility] Comment on above: Performed By: #### A DIFF, ANEU, CBC ####[place] [id number] [place] [address] Basophils/100 WBC (Bld) 0.1 % Normal 0.0-2.5 [facility] Comment on above: Performed By: #### A DIFF, ANEU, CBC ####[facility] [place] [address] Eosinophil, Absolute 0.0 10 3/mcL Normal 0.0-0.7 [facility] Comment on above: Performed By: #### A DIFF, ANEU, CBC ####[place] [address] [place] [address] Eosinophils/100 WBC (Bld) 0.1 % Normal 0.0-6.0 [facility] Comment on above: Performed By: #### A DIFF, ANEU, CBC ####[address] [place] [address] Lymphocyte, Absolute 2.5 10 3/mcL Normal 0.9-4.3 [facility] Comment on above: Performed By: #### A DIFF, ANEU, CBC ####[address] [address] Lymphocytes/100 WBC (Bld) 13.4 % Low 20.0-40.0 [facility] Comment on above: Performed By: #### A DIFF, ANEU, CBC ####[address] [address] Monocyte, Absolute 1.5 10 3/mcL High 0.1-1.4 [facility] Comment on above: Performed By: #### A DIFF, ANEU, CBC ####[address] [address] Monocytes/100 WBC (Bld) 7.9 % Normal 2.0-13.0 [facility] Comment on above: Performed By: #### A DIFF, ANEU, CBC ####[address] [address] Neutrophils/100 WBC (Bld) 78.5 % High 50.0-75.0 [facility] Comment on above: Performed By: #### A DIFF, ANEU, CBC ####[address] [address] .NEUABSon 06-27-2024 Neutrophil, Absolute 14.6 10 3/mcL High 2.3-8.1 [facility] Comment on above: Performed By: #### A DIFF, ANEU, CBC ####[address] [address] CBCon 06-27-2024 Erythrocyte distribution width (RBC) [Ratio] 14.1 % Normal 11.5-15.5 [facility] Comment on above: Performed By: #### A DIFF, ANEU, CBC ####[address] [address] Hematocrit (Bld) [Volume fraction] 23.4 % Low 34.0-46.0 [facility] Comment on above: Performed By: #### A DIFF, ANEU, CBC ####[place] [address] Hgb 8.0 G/dL Low 12.0-16.0 [facility] Comment on above: Performed By: #### A DIFF ANEU, CBC ####[place] [address] MCH (RBC) [Entitic mass] 29.3 pg Normal 27.0-33.0 [facility] Comment on above: Performed By: #### A DIFF, ANEU, CBC ####[place] [address] MCHC 34.4 G/dL Normal 32.0-36.0 [facility] Comment on above: Performed By: #### A DIFF ANEU, CBC ####[place] [address] MCV (RBC) [Entitic vol] 85.2 fL Normal 80.0-99.0 [facility] Comment on above: Performed By: #### A DIFF ANEU, CBC ####[place] [address] Platelet 424 10 3/mcL Normal 150-450 [facility] Comment on above: Performed By: #### A DIFF ANEU, CBC ####[place] [address] Platelet mean volume (Bld) [Entitic vol] 6.8 fL Normal 6.6-10.5 [facility] Comment on above: Performed By: #### A DIFF ANEU, CBC ####[place] [address] RBC 2.75 10 6/mcL Low 4.10-5.30 [facility] Comment on above: Performed By: #### A DIFF, ANEU, CBC ####[place] [address] WBC 18.6 10 3/mcL High 4.5-10.8 [facility] Comment on above: Performed By: #### A DIFF ANEU, CBC ####[place] [address] LABORATORYOrdered By: SYSTEM SYSTEM on 06-27-2024 Basophils (Bld) [#/Vol] 0.0 103/mcL Normal 0.0 - 0.3 10^3/mcL AH Workflow SS Basophils/100 WBC (Bld) 0.1 % Normal 0.0 - 2.5 % AH Workflow SS Eosinophils (Bld) [#/Vol] 0.0 103/mcL Normal 0.0 - 0.7 10^3/mcL AH Workflow SS Eosinophils/100 WBC (Bld) 0.1 % Normal 0.0 - 6.0 % AH Workflow SS Erythrocyte distribution width (RBC) [Ratio] 14.1 % Normal 11.5 - 15.5 % AH Workflow SS Hematocrit (Bld) [Volume fraction] 23.4 % Low 34.0 - 46.0 % AH Workflow SS Hemoglobin (Bld) [Mass/Vol] 8.0 G/dL Low 12.0 - 16.0 G/dL AH Workflow SS Lymphocytes (Bld) [#/Vol] 2.5 103/mcL Normal 0.9 - 4.3 10^3/mcL AH Workflow SS Lymphocytes/100 WBC (Bld) 13.4 % Low 20.0 - 40.0 % AH Workflow SS MCH (RBC) [Entitic mass] 29.3 pg Normal 27.0 - 33.0 pg AH Workflow SS MCHC 34.4 G/dL Normal 32.0 - 36.0 G/dL AH Workflow SS MCV (RBC) [Entitic vol] 85.2 fL Normal 80.0 - 99.0 fL AH Workflow SS Monocytes (Bld) [#/Vol] 1.5 103/mcL High 0.1 - 1.4 10^3/mcL AH Workflow SS Monocytes/100 WBC (Bld) 7.9 % Normal 2.0 - 13.0 % AH Workflow SS Neutrophils (Bld) [#/Vol] 14.6 103/mcL High 2.3 - 8.1 10^3/mcL AH Workflow SS Neutrophils/100 WBC (Bld) 78.5 % High 50.0 - 75.0 % AH Workflow SS Platelet mean volume (Bld) [Entitic vol] 6.8 fL Normal 6.6 - 10.5 fL AH Workflow SS Platelets (Bld) [#/Vol] 424 103/mcL Normal 150 - 450 10^3/mcL AH Workflow SS RBC (Bld) [#/Vol] 2.75 106/mcL Low 4.10 - 5.3 0 10^6/mcL Workflow SS WBC (Bld) [#/Vol] 18.6 103/mcL High 4.5 - 10.8 10^3/mcL Workflow SS .Auto Diffon 06-26-2024 Basophil, Absolute 0.0 10 3/mcL Normal 0.0-0.3 [facility] Comment on above: Performed By: #### G FR, ANEU, CBC, BMP, ADIFF #### [address] [address] Basophils/100 WBC (Bld) 0.2 % Normal 0.0-2.5 [facility] Comment on above: Performed By: #### G FR, ANEU, CBC, BMP, ADIFF #### [address] [address] Eosinophil, Absolute 0.0 10 3/mcL Normal 0.0-0.7 [facility] Comment on above: Performed By: #### G FR, ANEU, CBC, BMP, ADIFF #### [address] [address] Eosinophils/100 WBC (Bld) 0.0 % Normal 0.0-6.0 [facility] Comment on above: Performed By: #### G FR, ANEU, CBC, BMP, ADIFF #### [address] [address] Lymphocyte, Absolute 2.0 10 3/mcL Normal 0.9-4.3 [facility] Comment on above: Performed By: #### G FR, ANEU, CBC, BMP, ADIFF #### [address] [address] Lymphocytes/100 WBC (Bld) 10.5 % Low 20.0-40.0 [facility] Comment on above: Performed By: #### G FR, ANEU, CBC, BMP, ADIFF #### [address] [address] Monocyte, Absolute 1.2 10 3/mcL Normal 0.1-1.4 [facility] Comment on above: Performed By: #### G FR, ANEU, CBC, BMP, ADIFF #### [address] [address] Monocytes/100 WBC (Bld) 6.5 % Normal 2.0-13.0 [facility] Comment on above: Performed By: #### G FR, ANEU, CBC, BMP, ADIFF #### [address] [address] Neutrophils/100 WBC (Bld) 82.8 % High 50.0-75.0 [facility] Comment on above: Performed By: #### G FR, ANEU, CBC, BMP, ADIFF #### [address] [address] .GFRon 06-26-2024 GFR/1.73 sq M.predicted among non-blacks MDRD (S/P/Bld) [Vol rate/Area] mL/min/{1.73_m2} Normal [facility] Comment on above: Result Comment: Stages of Chronic Kidney Disease (CKD) Stage Description eGFR(ml/min/1.73 sq.m.) CKD 1 Normal kidney function or >=90 normal kindney function with possible kidney damage (ex. Proteinuria) CKD 2 Kidney damage with mild loss 60-89 of kidney function CKD 3a Mild to moderate loss of kidney 45-59 function CKD 3b Moderate to severe loss of 30-44 of kindey function CKD 4 Severe loss of kidney function 15-29 CKD 5 Kidney failure <15 Note: (go live 2024) the eGFR calculation was updated to the 2020 CKD-EPI creatinine equation without a race factor to calculate the eGFR results. Performed By: #### R BCP #### [place] [address] .NEUABSon 06-26-2024 Neutrophil, Absolute 15.5 10 3/mcL High 2.3-8.1 [facility] Comment on above: Performed By: #### G FR, ANEU, CBC, BMP, ADIFF #### [place] [id number] BMPon 06-26-2024 BUN/Creatinine Ratio 23.7 ratio High 10.0-22.0 [facility] Comment on above: Performed By: #### G FR, ANEU, CBC, BMP, ADIFF #### [address] [address] Calcium [Mass/Vol] 8.1 mg/dL Low 8.7-10.4 [facility] Comment on above: Performed By: #### G FR, ANEU, CBC, BMP, ADIFF #### [address] [address] Chloride [Moles/Vol] 107 mmol/L Normal 98-110 [facility] Comment on above: Performed By: #### G FR, ANEU, CBC, BMP, ADIFF #### [address] [address] CO2 [Moles/Vol] 24 mmol/L Normal 22-32 [facility] Comment on above: Performed By: #### G FR, ANEU, CBC, BMP, ADIFF #### [place] [id number] Creatinine [Mass/Vol] 0.38 mg/dL Low 0.50-1.20 [facility] Comment on above: Result Comment: Test ing performed on [employer] analyzer using enzymatic creatinine methodology. Performed By: #### G FR, ANEU, CBC, BMP, ADIFF #### [place] [id number] Electrolyte Balance 6.0 mEq/L Normal 4.0-15.0 [facility] Comment on above: Performed By: #### G FR, ANEU, CBC, BMP, ADIFF #### [address] [address] Glucose [Mass/Vol] 104 mg/dL Normal 70-110 [facility] Comment on above: Performed By: #### G FR, ANEU, CBC, BMP, ADIFF #### [address] [address] Potassium [Moles/Vol] 3.9 mmol/L Normal 3.5-5.0 [facility] Comment on above: Performed By: #### G FR, ANEU, CBC, BMP, ADIFF #### [place] [id number] Sodium [Moles/Vol] 137 mmol/L Normal 136-145 [facility] Comment on above: Performed By: #### G FR, ANEU, CBC, BMP, ADIFF #### [place] [address] Urea nitrogen [Mass/Vol] 9.0 mg/dL Normal 8.0-22.0 [facility] Comment on above: Performed By: #### G FR, ANEU, CBC, BMP, ADIFF #### [place] [address] CBCon 06-26-2024 Erythrocyte distribution width (RBC) [Ratio] 14.3 % Normal 11.5-15.5 [facility] Comment on above: Performed By: #### G FR, ANEU, CBC, BMP, ADIFF #### [place] [address] Hematocrit (Bld) [Volume fraction] 25.4 % Low 34.0-46.0 [facility] Comment on above: Performed By: #### G FR, ANEU, CBC, BMP, ADIFF #### [place] [address] Hgb 8.9 G/dL Low 12.0-16.0 [facility] Comment on above: Performed By: #### G FR, ANEU, CBC, BMP, ADIFF #### [place] [address] MCH (RBC) [Entitic mass] 29.6 pg Normal 27.0-33.0 [facility] Comment on above: Performed By: #### G FR, ANEU, CBC, BMP, ADIFF #### [place] [address] MCHC 35.0 G/dL Normal 32.0-36.0 [facility] Comment on above: Performed By: #### G FR, ANEU, CBC, BMP, ADIFF #### [place] [address] MCV (RBC) [Entitic vol] 84.5 fL Normal 80.0-99.0 [facility] Comment on above: Performed By: #### G FR, ANEU, CBC, BMP, ADIFF #### [facility] [address] [place] [address] Platelet 335 10 3/mcL Normal 150-450 [facility] Comment on above: Performed By: #### G FR, ANEU, CBC, BMP, ADIFF #### [facility] [address] [place] [address] Platelet mean volume (Bld) [Entitic vol] 7.0 fL Normal 6.6-10.5 [facility] Comment on above: Performed By: #### G FR, ANEU, CBC, BMP, ADIFF #### [facility] [address] [place] [address] RBC 3.00 10 6/mcL Low 4.10-5.30 [facility] Comment on above: Performed By: #### G FR, ANEU, CBC, BMP, ADIFF #### [facility] [address] [place] [address] WBC 18.7 10 3/mcL High 4.5-10.8 [facility] Comment on above: Performed By: #### G FR, ANEU, CBC, BMP, ADIFF #### [facility] [address] [place] [address] [address] ABDOMEN/PELVIS W/CONTRAST on 06-26-2024 CT ABDOMEN/PELVIS W/CONTRAST ORIGINAL EXAMINATION: CT OF THE ABDOMEN AND PELVIS WITH CONTRAST 06/26/2024 9:10 am TECHNIQUE: CT of the abdomen and pelvis was performed with the administration of intravenous contrast. Multiplanar reformatted images are provided for review. Automated exposure control, iterative reconstruction, and/or weight based adjustment of the mA/kV was utilized to reduce the radiation dose to as low as reasonably achievable. COMPARISON: None. HISTORY: ORDERING SYSTEM PROVIDED HISTORY: Reason for Exam: s/p open appendectomy 06/16/24, perforated appendix. s/p demise delivery 06/24/24 at 19weeks gestation. leukocytosis, abd pain, chorioamnionitis or abscess FINDINGS: No osseous abnormality is evident. Small bilateral pleural effusions are present, with small adjacent areas of infiltrate or atelectasis at the lower lobes. The lung bases are otherwise unremarkable. No gross gallbladder abnormality seen. No focal liver lesions evident. The spleen, adrenal glands and pancreas are unremarkable. No kidney abnormality is evident. Small volume ascites is noted in the abdomen and pelvis. The uterus is slightly prominent compatible with recent previous gestation. No other uterine abnormality seen. Urinary bladder is grossly normal. There are anterior abdominal wall skin ros from recent previous surgery. There is some hyperdensity identified at the incision, with small areas of air and fluid. This may be postoperative packing material or a small amount of blood. A discrete fluid collection is not definitely seen. Right lower quadrant clips are present from previous appendectomy. Right and left colon are normal in caliber. There is mild distension of the transverse portion of the colon. There is moderate jejunal dilatation extending to the proximal portion of the ileum as well. There is some normal caliber distal ileum seen. No pneumatosis is evident. No other GI tract abnormality. There is no discrete drainable fluid collection definitely identified on this exam. No additional contributory abnormality seen. IMPRESSION: 1. Small bilateral pleural effusions with minimal adjacent atelectasis or infiltrate. 2. Abdominal and pelvic postoperative changes with a small amount of ascites probably on that basis. I do not identify a discrete drainable fluid collection to suggest abscess. 3. Prominent uterus and slight prominence of the endometrium compatible with recent gestation. Please note that CT is insensitive for endometritis. 4. Moderate small bowel dilatation compatible with low to mid grade obstruction at the level of the midportion of the ileum. 5. Hyperdensity, fluid, and air/gas at the subcutaneous tissues at the midline anterior abdominal wall incision. This is compatible with recent surgery and packing material or small amount of blood. Interpreted by: Elizabeth Moseley MD Preliminary Report By: Elizabeth Moseley MD Electronically signed By Elizabeth Moseley MD Dictated Date: 06/26/2024 9:13:56 AM Prelim Date: 06/26/2024 9:24:32 AM Sign Date: 06/26/2024 9:24:32 AM Ordering Provider: MAVERICK SANTACRUZ [facility] Final Surgical Pathology Rep [facility] 06-26-2024 Final Surgical Pathology Report . Pathology Reports Accession: Collected Date/Time: Received Date/Time: Pathologist: [id number] 06/24/2024 15:33 EDT 06/25/2024 06:53 EDT SADIQ GARCIA MD Final Surgical Pathology Report DIAGNOSIS: PLACENTA (201 G): - UMBILICAL CORD: TRIVASCULAR - MEMBRANES: NO EVIDENCE OF CHORIOAMNIONITIS - PLACENTAL TISSUE: IMMATURE CHORIONIC VILLI; NO EVIDENCE OF VILLITIS; INCREASED INTERVILLOUS FIBRIN AND INTERVILLOUS THROMBI CLINICAL INFORMATION: UNABLE TO PASS PLACENTA AFTER OF DEMISE Procedure: D AND C AFTER DELIVERY OF DEMISE Preoperative diagnosis: UNABLE TO PASS PLACENTA AFTER OF DEMISE Postoperative diagnosis: D AN C AFTER DEMISE SPECIMEN: A PLACENTA 19 WEEK GROSS DESCRIPTION: All parts labelled with patient name and [id number] Received in formalin labelled placenta Received separate in the container and in a tissue collection bag are multiple red -brown portions of placental tissue and blood clots combined weighing 201 g, portion of placental tissue overall measures 12 x 5 x 2 cm. The tissue within the tissue collection bag aggregates to 10 x 7.5 x 4.5 cm. A scant amount of brown-pink translucent extraplacental membrane is identified. A short and disrupted portion of umbilical cord measures 4.5 cm in length with the average diameter 0.5 cm. Sectioning of the cord reveals 3 vessels grossly. The surface is brown -haney. The maternal surface is highly disrupted, fragmented throughout the tissue. A1 -extraplacental membrane and umbilical cord, A2 -dairy supplies sales representative placental tissue, A3 -hemorrhagic tissue within tissue collection bag. RS-3 Dieudonne Martinez, Pathologists' Starch Crab (ASCP) Performed by DIEUDONNE MARTINEZ MICROSCOPIC DESCRIPTION: The microscopic examination is performed, except in the case of Gross Only. Verified by Pathology Report verified by [facility] RADHA Sign out Date: 06/26/2024 11:50 Performing Lab: [facility], [address] [place] [address] Pathology Dept Disclaimer If ancillary studies were utilized, the following Laboratory Developed Test (LDT) disclaimer will apply: Under CLIA requirements, [facility] Laboratory is qualified to perform high complexity testing. For all ancillary stains, positive and negative controls stain appropriately. Performance characteristics of immunohistochemical and chromogenic in-situ hybridization tests have been determined by [facility] Pathology Laboratory. These tests are used for clinical purposes, They should not be regarded as investigational or for research. . Normal [facility] Final Surgical Pathology Report Event Display: SP Signature Pathology Report verified by [facility] Sign out Date: 06/26/2024 11:50 Performing Lab: [facility], [facility] [address] [place] [address] Pathology Dept SADIQ GARCIA MD:VERIFY; Authored Date: [id number] [facility] Final Surgical Pathology Report Event Display: SP Gross All parts labelled with patient name and [id number] Received in formalin labelled placenta Received separate in the container and in a tissue collection bag are multiple red brown portions of placental tissue and blood clots combined weighing 201 g, portion of placental tissue overall measures 12 x 5 x 2 cm. The tissue within the tissue collection bag aggregates to 10 x 7.5 x 4.5 cm. A scant amount of brown-pink translucent extraplacental membrane is identified. A short and disrupted portion of umbilical cord measures 4.5 cm in length with the average diameter 0.5 cm. Sectioning of the cord reveals 3 vessels grossly. The surface is brown haney. The maternal surface is highly disrupted, fragmented throughout the tissue. A1 extraplacental membrane and umbilical cord, A2 dairy supplies sales representative placental tissue, A3 hemorrhagic tissue within tissue collection bag. RS-3 Dieudonne Martinez, Pathologists' Starch Crab (ASCP) Performed by SADIQ NAVARRO MD:VERIFY; Authored Date: [facility] Final Surgical Pathology Report Event Display: SP Micro The microscopic examination is performed, except in the case of Gross Only. SADIQ GARCIA MD:VERIFY; Authored Date: [id number] [facility] Final Surgical Pathology Report Event Display: SP Disclaimer If ancillary studies were utilized, the following Laboratory Developed Test (LDT) disclaimer will apply: Under CLIA requirements, [facility] Pathology Laboratory is qualified to perform high complexity testing. For all ancillary stains, positive and negative controls stain appropriately. Performance characteristics of immunohistochemical and chromogenic in-situ hybridization tests have been determined by [facility] Pathology Laboratory. These tests are used for clinical purposes, They should not be regarded as investigational or for research. . SADIQ GARCIA MD:VERIFY; Authored Date: [facility] Final Surgical Pathology Report Event Display: SP Specimen APLACENTA 19 WEEK SADIQ GARCIA MD:VERIFY; Authored Date: [facility] Final Surgical Pathology Report Event Display: SP Dx PLACENTA (201 G): - UMBILICAL CORD: TRIVASCULAR - MEMBRANES: NO EVIDENCE OF CHORIOAMNIONITIS - PLACENTAL TISSUE: IMMATURE CHORIONIC VILLI; NO EVIDENCE OF VILLITIS; INCREASED INTERVILLOUS FIBRIN AND INTERVILLOUS THROMBI SADIQ GARCIA MD:VERIFY; Authored Date: [id number] [facility] LABORATORYOrdered By: SYSTEM SYSTEM on 06-26-2024 Basophils (Bld) [#/Vol] 0.0 103/mcL Normal 0.0 - 0.3 10^3/mcL Workflow SS Basophils/100 WBC (Bld) 0.2 % Normal 0.0 - 2.5 % Workflow SS Calcium [Mass/Vol] 8.1 mg/dL Low 8.7 - 10. 4 mg/dL ADM SS Chloride [Moles/Vol] 107 mmol/L Normal 98 - 11 0 mEq/L ADM SS CO2 [Moles/Vol] 24 mmol/L Normal 22 - 32 mEq/L ADM SS Creatinine [Mass/Vol] 0.38 mg/dL Low 0.50 - 1.20 mg/dL ADM SS Comment on above: Interpretive Data: T esting performed on [employer] analyzer using enzymatic creatinine methodology. Electrolyte Balance 6.0 mEq/L Normal 4.0 - 15 .0 mEq/L ADM SS Eosinophils (Bld) [#/Vol] 0.0 103/mcL Normal 0.0 - 0.7 10^3/mcL Workflow SS Eosinophils/100 WBC (Bld) 0.0 % Normal 0.0 - 6.0 % Workflow SS Erythrocyte distribution width (RBC) [Ratio] 14.3 % Normal 11.5 - 15.5 % Workflow SS Estimated Glomerular Filtration Rate ml/min/1.73sqm Invalid Interpretation Code Chemistry S Comment on above: Interpretive Data: Stages of Chronic Kidney Disease (CKD) Stage Description eGFR(ml/min/1.73 sq.m.) CKD 1 Normal kidney function or >=90 normal kindney function with possible kidney damage (ex. Proteinuria) CKD 2 Kidney damage with mild loss 60-89 of kidney function CKD 3a Mild to moderate loss of kidney 45-59 function CKD 3b Moderate to severe loss of 30-44 of kindey function CKD 4 Severe loss of kidney function 15-29 CKD 5 Kidney failure <15 Note: (go live 2024) the eGFR calculation was updated to the 2020 CKD-EPI creatinine equation without a race factor to calculate the eGFR results. Glucose [Mass/Vol] 104 mg/dL Normal 70 - 110 mg/dL AH ADM SS Hematocrit (Bld) [Volume fraction] 25.4 % Low 34.0 - 46.0 % AH Workflow SS Hemoglobin (Bld) [Mass/Vol] 8.9 G/dL Low 12.0 - 16.0 G/dL AH Workflow SS Lymphocytes (Bld) [#/Vol] 2.0 103/mcL Normal 0.9 - 4.3 10^3/mcL AH Workflow SS Lymphocytes/100 WBC (Bld) 10.5 % Low 20.0 - 40.0 % AH Workflow SS MCH (RBC) [Entitic mass] 29.6 pg Normal 27.0 - 33.0 pg AH Workflow SS MCHC 35.0 G/dL Normal 32.0 - 36.0 G/dL AH Workflow SS MCV (RBC) [Entitic vol] 84.5 fL Normal 80.0 - 99.0 fL AH Workflow SS Monocytes (Bld) [#/Vol] 1.2 103/mcL Normal 0.1 - 1.4 10^3/mcL AH Workflow SS Monocytes/100 WBC (Bld) 6.5 % Normal 2.0 - 13.0 % AH Workflow SS Neutrophils (Bld) [#/Vol] 15.5 103/mcL High 2.3 - 8.1 10^3/mcL AH Workflow SS Neutrophils/100 WBC (Bld) 82.8 % High 50.0 - 75.0 % AH Workflow SS Platelet mean volume (Bld) [Entitic vol] 7.0 fL Normal 6.6 - 10.5 fL AH Workflow SS Platelets (Bld) [#/Vol] 335 103/mcL Normal 150 - 450 10^3/mcL AH Workflow SS Potassium [Moles/Vol] 3.9 mmol/L Normal 3.5 - 5.0 mEq/L ADM SS RBC (Bld) [#/Vol] 3.00 106/mcL Low 4.10 - 5.3 0 10^6/mcL Workflow SS Sodium [Moles/Vol] 137 mmol/L Normal 136 - 145 mEq/L ADM SS Urea nitrogen [Mass/Vol] 9.0 mg/dL Normal 8.0 - 22.0 mg/dL ADM SS Urea nitrogen/Creatinine [Mass ratio] 23.7 ratio High 10.0 - 22.0 ratio ADM SS WBC (Bld) [#/Vol] 18.7 103/mcL High 4.5 - 10.8 10^3/mcL Workflow SS .Auto Diffon 06-25-2024 Basophil, Absolute 0.0 10 3/mcL Normal 0.0-0.3 [facility] Comment on above: Performed By: #### G FR, ANEU, CBC, BMP, ADIFF #### [address] [address] Basophils/100 WBC (Bld) 0.0 % Normal 0.0-2.5 [facility] Comment on above: Performed By: #### G FR, ANEU, CBC, BMP, ADIFF #### [address] [address] Eosinophil, Absolute 0.0 10 3/mcL Normal 0.0-0.7 [facility] Comment on above: Performed By: #### G FR, ANEU, CBC, BMP, ADIFF #### [address] [address] Eosinophils/100 WBC (Bld) 0.0 % Normal 0.0-6.0 [facility] Comment on above: Performed By: #### G FR, ANEU, CBC, BMP, ADIFF #### [address] [address] Lymphocyte, Absolute 2.6 10 3/mcL Normal 0.9-4.3 [facility] Comment on above: Performed By: #### G FR, ANEU, CBC, BMP, ADIFF #### [address] [address] Lymphocytes/100 WBC (Bld) 9.5 % Low 20.0-40.0 [facility] Comment on above: Performed By: #### G FR, ANEU, CBC, BMP, ADIFF #### [facility] [address] [place] [address] Monocyte, Absolute 1.6 10 3/mcL High 0.1-1.4 [facility] Comment on above: Performed By: #### G FR, ANEU, CBC, BMP, ADIFF #### [facility] [address] [place] [address] Monocytes/100 WBC (Bld) 5.6 % Normal 2.0-13.0 [facility] Comment on above: Performed By: #### G FR, ANEU, CBC, BMP, ADIFF #### [facility] [address] [place] [address] Neutrophils/100 WBC (Bld) 84.9 % High 50.0-75.0 [facility] Comment on above: Performed By: #### G FR, ANEU, CBC, BMP, ADIFF #### [facility] [address] [place] [address] .GFRon 06-25-2024 GFR/1.73 sq M.predicted among non-blacks MDRD (S/P/Bld) [Vol rate/Area] mL/min/{1.73_m2} Normal [facility] Comment on above: Result Comment: Stages of Chronic Kidney Disease (CKD) Stage Description eGFR(ml/min/1.73 sq.m.) CKD 1 Normal kidney function or >=90 normal kindney function with possible kidney damage (ex. Proteinuria) CKD 2 Kidney damage with mild loss 60-89 of kidney function CKD 3a Mild to moderate loss of kidney 45-59 function CKD 3b Moderate to severe loss of 30-44 of kindey function CKD 4 Severe loss of kidney function 15-29 CKD 5 Kidney failure <15 Note: (go live 2024) the eGFR calculation was updated to the 2020 CKD-EPI creatinine equation without a race factor to calculate the eGFR results. Performed By: #### G FR, ANEU, CBC, BMP, ADIFF #### [place] [id number] [place] [address] .Manual Diffon 06-25-2024 Bands 5.0 % Normal 0.0-5.0 [facility] Comment on above: Performed By: #### G FR, ANEU, CBC, BMP, ADIFF #### [address] [address] Basophil %, Manual 0.0 % Normal 0.0-2.5 [facility] Comment on above: Performed By: #### G FR, ANEU, CBC, BMP, ADIFF #### [address] [address] Basophil, Abs Manual 0.0 10 3/mcL Normal 0.0-0.3 [facility] Comment on above: Performed By: #### G FR, ANEU, CBC, BMP, ADIFF #### [address] [address] Eosinophil %, Manual 0.0 % Normal 0.0-6.0 [facility] Comment on above: Performed By: #### G FR, ANEU, CBC, BMP, ADIFF #### [address] [address] Eosinophil, Abs Manual 0.0 10 3/mcL Normal 0.0-0.7 [facility] Comment on above: Performed By: #### G FR, ANEU, CBC, BMP, ADIFF #### [address] [address] Lymphocyte %, Manual 15.0 % Low 20.0-40.0 [facility] Comment on above: Performed By: #### G FR, ANEU, CBC, BMP, ADIFF #### [address] [address] Lymphocyte, Abs Manual 3.7 10 3/mcL Normal 0.9-4.3 [facility] Comment on above: Performed By: #### G FR, ANEU, CBC, BMP, ADIFF #### [address] [address] Monocyte %, Manual 5.0 % Normal 2.0-13.0 [facility] Comment on above: Performed By: #### G FR, ANEU, CBC, BMP, ADIFF #### [place] [address] Monocyte, Abs Manual 1.2 10 3/mcL Normal 0.1-1.4 [facility] Comment on above: Performed By: #### G FR, ANEU, CBC, BMP, ADIFF #### [place] [address] Neutrophil %, Manual 75.0 % Normal 50.0-75.0 [facility] Comment on above: Performed By: #### G FR, ANEU, CBC, BMP, ADIFF #### [place] [address] Neutrophil, Abs Manual 20.1 10 3/mcL High 2.3-8.1 [facility] Comment on above: Performed By: #### G FR, ANEU, CBC, BMP, ADIFF #### [place] [address] Nucleated RBC 0.0 /100 WBC Normal [facility] Comment on above: Performed By: #### G FR, ANEU, CBC, BMP, ADIFF #### [place] [address] .Morphon 06-25-2024 Anisocytosis Ql (Bld) 1+ Normal [facility] Comment on above: Performed By: #### G FR, ANEU, CBC, BMP, ADIFF #### [place] [address] Ovalocytes 1+ Normal [facility] Comment on above: Performed By: #### G FR, ANEU, CBC, BMP, ADIFF #### [place] [address] Platelet Clumps Few Normal [facility] Comment on above: Performed By: #### G FR, ANEU, CBC, BMP, ADIFF #### [place] [address] Platelet Estimate Normal [facility] Comment on above: Performed By: #### G FR, ANEU, CBC, BMP, ADIFF #### [place] [address] Platelet Estimate Normal [facility] Comment on above: Performed By: #### G FR, ANEU, CBC, BMP, ADIFF #### [address] [address] RBC morphology finding Nom (Bld) Normal Normal [facility] Comment on above: Performed By: #### G FR, ANEU, CBC, BMP, ADIFF #### [address] [address] Toxic Gran 1+ Normal [facility] Comment on above: Performed By: #### G FR, ANEU, CBC, BMP, ADIFF #### [address] [address] .NEUABSon 06-25-2024 Neutrophil, Absolute 23.4 10 3/mcL High 2.3-8.1 [facility] Comment on above: Performed By: #### G FR, ANEU, CBC, BMP, ADIFF #### [address] [address] ABS (Gel)on 06-25-2024 ABSC Interp (Gel) Negative Normal [facility] Comment on above: Order Comment: Order ed by Discern Performed By: #### R BCP #### [address] [address] CBCon 06-25-2024 Platelet 299 10 3/mcL Normal 150-450 [facility] Comment on above: Order Comment: pleas e draw 4 hours after blood transfusion complete Performed By: #### C BC, DIFF, MORPH ####[place] [address] Platelet mean volume (Bld) [Entitic vol] 7.7 fL Normal 6.6-10.5 [facility] Comment on above: Order Comment: pleas e draw 4 hours after blood transfusion complete Performed By: #### C BC, DIFF, MORPH ####[place] [address] Erythrocyte distribution width (RBC) [Ratio] 14.1 % Normal 11.5-15.5 [facility] Comment on above: Order Comment: pleas e draw 4 hours after blood transfusion complete Performed By: #### C BC, DIFF, MORPH ####[place] [address] Hematocrit (Bld) [Volume fraction] 27.9 % Low 34.0-46.0 [facility] Comment on above: Order Comment: pleas e draw 4 hours after blood transfusion complete Performed By: #### C BC, DIFF, MORPH ####[place] [address] Hgb 9.9 G/dL Low 12.0-16.0 [facility] Comment on above: Order Comment: pleas e draw 4 hours after blood transfusion complete Performed By: #### C BC, DIFF, MORPH ####[place] [address] MCH (RBC) [Entitic mass] 29.5 pg Normal 27.0-33.0 [facility] Comment on above: Order Comment: pleas e draw 4 hours after blood transfusion complete Performed By: #### C BC, DIFF, MORPH ####[place] [address] MCHC 35.3 G/dL Normal 32.0-36.0 [facility] Comment on above: Order Comment: pleas e draw 4 hours after blood transfusion complete Performed By: #### C BC, DIFF, MORPH ####[place] [address] MCV (RBC) [Entitic vol] 83.4 fL Normal 80.0-99.0 [facility] Comment on above: Order Comment: pleas e draw 4 hours after blood transfusion complete Performed By: #### C BC, DIFF, MORPH ####[place] [address] RBC 3.35 10 6/mcL Low 4.10-5.30 [facility] Comment on above: Order Comment: pleas e draw 4 hours after blood transfusion complete Performed By: #### C BC, DIFF, MORPH ####[place] [address] WBC 25.0 10 3/mcL High 4.5-10.8 [facility] Comment on above: Order Comment: pleas e draw 4 hours after blood transfusion complete Performed By: #### C BC, DIFF, MORPH ####[address] [place] [address] Erythrocyte distribution width (RBC) [Ratio] 13.3 % Normal 11.5-15.5 [facility] Comment on above: Order Comment: QNS R ecollect required 06/25/2024 07:58:30 EDT Performed By: #### G FR, ANEU, CBC, BMP, ADIFF #### [address] [address] Hematocrit (Bld) [Volume fraction] 22.8 % Low 34.0-46.0 [facility] Comment on above: Order Comment: QNS R ecollect required 06/25/2024 07:58:30 EDT Performed By: #### G FR, ANEU, CBC, BMP, ADIFF #### [address] [address] Hgb 7.7 G/dL Low 12.0-16.0 [facility] Comment on above: Order Comment: QNS R ecollect required 06/25/2024 07:58:30 EDT Performed By: #### G FR, ANEU, CBC, BMP, ADIFF #### [address] [address] MCH (RBC) [Entitic mass] 29.8 pg Normal 27.0-33.0 [facility] Comment on above: Order Comment: QNS R ecollect required 06/25/2024 07:58:30 EDT Performed By: #### G FR, ANEU, CBC, BMP, ADIFF #### [place] [id number] MCHC 33.9 G/dL Normal 32.0-36.0 [facility] Comment on above: Order Comment: QNS R ecollect required 06/25/2024 07:58:30 EDT Performed By: #### G FR, ANEU, CBC, BMP, ADIFF #### [address] [address] MCV (RBC) [Entitic vol] 87.9 fL Normal 80.0-99.0 [facility] Comment on above: Order Comment: QNS R ecollect required 06/25/2024 07:58:30 EDT Performed By: #### G FR, ANEU, CBC, BMP, ADIFF #### [place] [address] Platelet 427 10 3/mcL Normal 150-450 [facility] Comment on above: Order Comment: QNS R ecollect required 06/25/2024 07:58:30 EDT Performed By: #### G FR, ANEU, CBC, BMP, ADIFF #### [place] [address] Platelet mean volume (Bld) [Entitic vol] 7.0 fL Normal 6.6-10.5 [facility] Comment on above: Order Comment: QNS R ecollect required 06/25/2024 07:58:30 EDT Performed By: #### G FR, ANEU, CBC, BMP, ADIFF #### [place] [address] RBC 2.59 10 6/mcL Low 4.10-5.30 [facility] Comment on above: Order Comment: QNS R ecollect required 06/25/2024 07:58:30 EDT Performed By: #### G FR, ANEU, CBC, BMP, ADIFF #### [place] [address] WBC 27.6 10 3/mcL High 4.5-10.8 [facility] Comment on above: Order Comment: QNS R ecollect required 06/25/2024 07:58:30 EDT Performed By: #### G FR, ANEU, CBC, BMP, ADIFF #### [place] [address] CKon 06-25-2024 CPK <15 Normal 7-185 [facility] Comment on above: Performed By: #### G FR, ANEU, CBC, BMP, ADIFF #### [place] [address] CMPon 06-25-2024 Albumin Level 2.4 G/dL Low 3.2-4.8 [facility] Comment on above: Performed By: #### G FR, ANEU, CBC, BMP, ADIFF #### [address] [address] Albumin/Globulin [Mass ratio] 0.8 {ratio} Low 0.9-1.6 [facility] Comment on above: Performed By: #### G FR, ANEU, CBC, BMP, ADIFF #### [address] [address] ALP [Catalytic activity/Vol] 65 U/L Normal 33-118 [facility] Comment on above: Performed By: #### G FR, ANEU, CBC, BMP, ADIFF #### [place] [id number] ALT [Catalytic activity/Vol] 27 U/L Normal 10-49 [facility] Comment on above: Performed By: #### G FR, ANEU, CBC, BMP, ADIFF #### [place] [id number] AST [Catalytic activity/Vol] 14 U/L Normal 8-34 [facility] Comment on above: Performed By: #### G FR, ANEU, CBC, BMP, ADIFF #### [place] [id number] Bili Total 0.50 mg/dL Normal 0.20-1.20 [facility] Comment on above: Result Comment: Use of this assay is not recommended for patients undergoing treatment with eltrombopag due to the potential for falsely elevated results. Performed By: #### G FR, ANEU, CBC, BMP, ADIFF #### [place] [id number] BUN/Creatinine Ratio 16.3 ratio Normal 10.0-22.0 [facility] Comment on above: Performed By: #### G FR, ANEU, CBC, BMP, ADIFF #### [address] [address] Calcium [Mass/Vol] 9.1 mg/dL Normal 8.7-10.4 [facility] Comment on above: Performed By: #### G FR, ANEU, CBC, BMP, ADIFF #### [place] [id number] Chloride [Moles/Vol] 104 mmol/L Normal 98-110 [facility] Comment on above: Performed By: #### G FR, ANEU, CBC, BMP, ADIFF #### [address] [address] CO2 [Moles/Vol] 25 mmol/L Normal 22-32 [facility] Comment on above: Performed By: #### G FR, ANEU, CBC, BMP, ADIFF #### [address] [address] Creatinine [Mass/Vol] 0.49 mg/dL Low 0.50-1.20 [facility] Comment on above: Result Comment: Test ing performed on [employer] analyzer using enzymatic creatinine methodology. Performed By: #### G FR, ANEU, CBC, BMP, ADIFF #### [place] [id number] Electrolyte Balance 7.0 mEq/L Normal 4.0-15.0 [facility] Comment on above: Performed By: #### G FR, ANEU, CBC, BMP, ADIFF #### [address] [address] Globulin 3.2 G/dL Normal 2.5-4.2 [facility] Comment on above: Performed By: #### G FR, ANEU, CBC, BMP, ADIFF #### [address] [address] Glucose [Mass/Vol] 91 mg/dL Normal 70-110 [facility] Comment on above: Performed By: #### G FR, ANEU, CBC, BMP, ADIFF #### [address] [address] Potassium [Moles/Vol] 4.2 mmol/L Normal 3.5-5.0 [facility] Comment on above: Performed By: #### G FR, ANEU, CBC, BMP, ADIFF #### [address] [address] Sodium [Moles/Vol] 136 mmol/L Normal 136-145 [facility] Comment on above: Performed By: #### G FR, ANEU, CBC, BMP, ADIFF #### [address] [address] Total Protein 5.6 G/dL Low 5.7-8.2 [facility] Comment on above: Performed By: #### G FR, ANEU, CBC, BMP, ADIFF #### [facility] [address] [place] [address] Urea nitrogen [Mass/Vol] 8.0 mg/dL Normal 8.0-22.0 [facility] Comment on above: Performed By: #### G FR, ANEU, CBC, BMP, ADIFF #### [facility] [address] [place] [address] LABORATORYOrdered By: SYSTEM SYSTEM on 06-25-2024 Anisocytosis Ql (Bld) 1+ *NA* (06/25/24 8:37 PM) Invalid Interpretation Code AH Workflow SS Band form neutrophils/100 WBC (Bld) 5.0 % Normal 0.0 - 5.0 % AH Workflow SS Basophils (Bld) [#/Vol] 0.0 103/mcL Normal 0.0 - 0.3 10^3/mcL AH Workflow SS Basophils/100 WBC (Bld) 0.0 % Normal 0.0 - 2.5 % AH Workflow SS Eosinophils (Bld) [#/Vol] 0.0 103/mcL Normal 0.0 - 0.7 10^3/mcL AH Workflow SS Eosinophils/100 WBC (Bld) 0.0 % Normal 0.0 - 6.0 % AH Workflow SS Erythrocyte distribution width (RBC) [Ratio] 14.1 % Normal 11.5 - 15.5 % AH Workflow SS Hematocrit (Bld) [Volume fraction] 27.9 % Low 34.0 - 46.0 % AH Workflow SS Hemoglobin (Bld) [Mass/Vol] 9.9 G/dL Low 12.0 - 16.0 G/dL AH Workflow SS Lymphocytes (Bld) [#/Vol] 3.7 103/mcL Normal 0.9 - 4.3 10^3/mcL AH Workflow SS Lymphocytes/100 WBC (Bld) 15.0 % Low 20.0 - 40.0 % AH Workflow SS MCH (RBC) [Entitic mass] 29.5 pg Normal 27.0 - 33.0 pg AH Workflow SS MCHC 35.3 G/dL Normal 32.0 - 36.0 G/dL AH Workflow SS MCV (RBC) [Entitic vol] 83.4 fL Normal 80.0 - 99.0 fL AH Workflow SS Monocytes (Bld) [#/Vol] 1.2 103/mcL Normal 0.1 - 1.4 10^3/mcL AH Workflow SS Monocytes/100 WBC (Bld) 5.0 % Normal 2.0 - 13.0 % AH Workflow SS Neutrophils (Bld) [#/Vol] 20.1 103/mcL High 2.3 - 8.1 10^3/mcL AH Workflow SS Neutrophils/100 WBC (Bld) 75.0 % Normal 50.0 - 75.0 % AH Workflow SS Nucleated RBC 0.0 /100 WBC Invalid Interpretation Code Workflow SS Ovalocytes LM Ql (Bld) 1+ *NA* (06/25/24 8:37 PM) Invalid Interpretation Code Workflow SS Platelet Clumps Few *NA* (06/25/24 8:37 PM) Invalid Interpretation Code Workflow SS Platelet mean volume (Bld) [Entitic vol] 7.7 fL Normal 6.6 - 10.5 fL AH Workflow SS Platelets (Bld) [#/Vol] 299 103/mcL Normal 150 - 450 10^3/mcL AH Workflow SS Platelets LM Ql (Bld) Normal *NA* (06/25/24 8:37 PM) Invalid Interpretation Code Workflow SS RBC (Bld) [#/Vol] 3.35 106/mcL Low 4.10 - 5.3 0 10^6/mcL AH Workflow SS WBC (Bld) [#/Vol] 25.0 103/mcL High 4.5 - 10.8 10^3/mcL AH Workflow SS Albumin BCP dye [Mass/Vol] 2.4 G/dL Low 3.2 - 4.8 G/dL ADM SS Albumin/Globulin [Mass ratio] 0.8 {ratio} Low 0.9 - 1.6 ratio ADM SS ALP [Catalytic activity/Vol] 65 U/L Normal 33 - 118 U/L ADM SS ALT No additional P-5'-P [Catalytic activity/Vol] 27 U/L Normal 10 - 49 U/L ADM SS AST [Catalytic activity/Vol] 14 U/L Normal 8 - 34 U/L ADM SS Basophils (Bld) [#/Vol] 0.0 103/mcL Normal 0.0 - 0.3 10^3/mcL AH Workflow SS Basophils/100 WBC (Bld) 0.0 % Normal 0.0 - 2.5 % Workflow SS Bilirubin [Mass/Vol] 0.50 mg/dL Normal 0.20 - 1.20 mg/dL AH ADM SS Comment on above: Interpretive Data: U se of this assay is not recommended for patients undergoing treatment with eltrombopag due to the potential for falsely elevated results. Calcium [Mass/Vol] 9.1 mg/dL Normal 8.7 - 10. 4 mg/dL ADM SS Chloride [Moles/Vol] 104 mmol/L Normal 98 - 11 0 mEq/L AH ADM SS CK [Catalytic activity/Vol] U/L 1 Normal 7 - 185 U/L ADM SS CO2 [Moles/Vol] 25 mmol/L Normal 22 - 32 mEq/L ADM SS Creatinine [Mass/Vol] 0.49 mg/dL Low 0.50 - 1.20 mg/dL AH ADM SS Comment on above: Interpretive Data: T esting performed on [employer] analyzer using enzymatic creatinine methodology. Electrolyte Balance 7.0 mEq/L Normal 4.0 - 15 .0 mEq/L ADM SS Eosinophils (Bld) [#/Vol] 0.0 103/mcL Normal 0.0 - 0.7 10^3/mcL Workflow SS Eosinophils/100 WBC (Bld) 0.0 % Normal 0.0 - 6.0 % Workflow SS Estimated Glomerular Filtration Rate ml/min/1.73sqm Invalid Interpretation Code Chemistry S Comment on above: Interpretive Data: Stages of Chronic Kidney Disease (CKD) Stage Description eGFR(ml/min/1.73 sq.m.) CKD 1 Normal kidney function or >=90 normal kindney function with possible kidney damage (ex. Proteinuria) CKD 2 Kidney damage with mild loss 60-89 of kidney function CKD 3a Mild to moderate loss of kidney 45-59 function CKD 3b Moderate to severe loss of 30-44 of kindey function CKD 4 Severe loss of kidney function 15-29 CKD 5 Kidney failure <15 Note: (go live 2024) the eGFR calculation was updated to the 2020 CKD-EPI creatinine equation without a race factor to calculate the eGFR results. Globulin 3.2 G/dL Normal 2.5 - 4.2 G/dL ADM SS Glucose [Mass/Vol] 91 mg/dL Normal 70 - 110 mg/dL AH ADM SS Lymphocytes (Bld) [#/Vol] 2.6 103/mcL Normal 0.9 - 4.3 10^3/mcL AH Workflow SS Lymphocytes/100 WBC (Bld) 9.5 % Low 20.0 - 40.0 % AH Workflow SS Magnesium [Mass/Vol] 1.7 mg/dL Normal 1.6 - 2 .4 mg/dL AH ADM SS Monocytes (Bld) [#/Vol] 1.6 103/mcL High 0.1 - 1.4 10^3/mcL AH Workflow SS Monocytes/100 WBC (Bld) 5.6 % Normal 2.0 - 13.0 % AH Workflow SS Neutrophils (Bld) [#/Vol] 23.4 103/mcL High 2.3 - 8.1 10^3/mcL AH Workflow SS Neutrophils/100 WBC (Bld) 84.9 % High 50.0 - 75.0 % AH Workflow SS Platelets LM Ql (Bld) Normal *NA* (06/25/24 9:15 AM) Invalid Interpretation Code AH Workflow SS Potassium [Moles/Vol] 4.2 mmol/L Normal 3.5 - 5.0 mEq/L ADM SS Protein [Mass/Vol] 5.6 G/dL Low 5.7 - 8.2 G/dL AH ADM SS RBC morphology finding Nom (Bld) Normal *NA* (06/25/24 9:15 AM) Invalid Interpretation Code Workflow SS Sodium [Moles/Vol] 136 mmol/L Normal 136 - 145 mEq/L ADM SS Toxic granules LM Ql (Bld) 1+ *NA* (06/25/24 9:15 AM) Invalid Interpretation Code AH Workflow SS Urea nitrogen [Mass/Vol] 8.0 mg/dL Normal 8.0 - 22.0 mg/dL ADM SS Urea nitrogen/Creatinine [Mass ratio] 16.3 ratio Normal 10.0 - 22.0 ratio AH ADM SS LABORATORYOrdered By: Les Sommers on 06-25-2024 RBC Product Ready RBC Ready for Pickup (06/25/24 2:05 PM) Normal BB Manual SS LABORATORYOrdered By: Victor Manuel Trejo on 06-25-2024 RBC Product Ready RBC Ready for Pickup (06/25/24 10:24 AM) Normal AH BB Manual SS LABORATORYOrdered By: Delma Garcia on 06-25-2024 Appearance (U) Clear (06/25/24 6:42 AM) Normal Clear AH Auto Urine SS Bilirubin Ql (U) Negative (06/25/24 6:42 AM) Normal Neg-Trace AH Auto Urine SS Color (U) Yellow (06/25/24 6:42 AM) Normal AH Auto Urine SS Crystals.amorphous LM.HPF (Urine sed) [#/Area] Trace /HPF Normal AH Auto Urine SS Glucose Test strip (U) [Mass/Vol] Negative Normal Negative AH Auto Urine SS Hemoglobin Auto test strip (U) [Mass/Vol] Large *ABN* (06/25/24 6:42 AM) Invalid Interpretation Code Neg-Trace AH Auto Urine SS Ketones Ql (U) 40 mg/dL Invalid Interpretation Code Neg-Trace AH Auto Urine SS RBC.non-dysmorphic LM Ql (Urine sed) 10-20 /HPF Invalid Interpretation Code AH Auto Urine SS UA Leuk Est Trace *NA* (06/25/24 6:42 AM) Invalid Interpretation Code Negative AH Auto Urine SS UA Mucous Trace /HPF Normal AH Auto Urine SS UA Nitrite Negative (06/25/24 6:42 AM) Normal Negative AH Auto Urine SS UA pH 5.5 (06/25/24 6:42 AM) Normal 5.0 - 8.0 AH Auto Urine SS UA Protein 30 mg/dL Normal Negative AH Auto Urine SS UA RBC 25-50 /HPF Invalid Interpretation Code 0-2 AH Auto Urine SS UA Spec Grav >=1.030 *ABN* (06/25/24 6:42 AM) Invalid Interpretation Code 1.006-1.029 AH Auto Urine SS UA Specimen Type Clean Catch (06/25/24 6:42 AM) Normal AH Auto Urine SS UA Squam Epithelial 3-5 /HPF Normal 0-20 AH Au to Urine SS UA Urobilinogen 1.0 E.U./dL Normal 0.2-1.0 AH Auto Urine SS WBC LM.HPF (Urine sed) [#/Area] 0-2 /HPF Normal 0-5 AH Auto Urine SS MGon 06-25-2024 Magnesium [Mass/Vol] 1.7 mg/dL Normal 1.6-2.4 [facility] Comment on above: Performed By: #### G FR, ANEU, CBC, BMP, ADIFF #### [address] [address] RBC (Product)on 06-25-2024 RBC Product Ready RBC Ready for Pickup [facility] Comment on above: Performed By: #### R BCP #### [place] [address] RBC Product Ready RBC Ready for Pickup [facility] Comment on above: Performed By: #### R BCP #### [address] [address] UAon 06-25-2024 Color (U) Yellow Normal [facility] Comment on above: Performed By: #### U AMIC, UA ####[place] [address] Glucose (U) [Mass/Vol] Negative Normal Negative [facility] Comment on above: Performed By: #### U AMIC, UA ####[place] [address] Ketones Ql (U) 40 mg/dL Abnormal Neg-Trace [facility] Comment on above: Performed By: #### U AMIC, UA ####[place] [address] UA Appear Clear Normal Clear [facility] Comment on above: Performed By: #### U AMIC, UA ####[place] [address] UA Blood Large Abnormal Neg-Trace [facility] Comment on above: Performed By: #### U AMIC, UA ####[place] [address] UA Leuk Est Trace Normal Negative [facility] Comment on above: Performed By: #### U AMIC, UA ####[place] [address] UA Nitrite Negative Normal Negative [facility] Comment on above: Performed By: #### U AMIC, UA ####[place] [address] UA pH 5.5 Normal 5.0 - 8.0 [facility] Comment on above: Performed By: #### U AMIC, UA ####[facility] [place] [address] UA Protein 30 mg/dL Normal Negative [facility] Comment on above: Performed By: #### U AMIC, UA ####[place] [id number] [place] [address] UA Spec Grav >=1.030 Abnormal 1.006-1.029 [facility] Comment on above: Performed By: #### U AMIC, UA ####[place] [address] UA Specimen Type Clean Catch [facility] Comment on above: Performed By: #### U AMIC, UA ####[place] [address] UA Urobilinogen 1.0 E.U./dL Normal 0.2-1.0 [facility] Comment on above: Performed By: #### U AMIC, UA ####[place] [address] Urobilinogen (U) [Mass/Vol] Negative Normal Neg-Trace [facility] Comment on above: Performed By: #### U AMIC, UA ####[place] [address] UAMICon 06-25-2024 UA Amorphus Trace [facility] Comment on above: Performed By: #### U AMIC, UA ####[place] [address] UA Crenated RBCs 10-20 Abnormal [facility] Comment on above: Performed By: #### U AMIC, UA ####[facility] [place] [address] UA Mucous Trace [facility] Comment on above: Performed By: #### U AMIC, UA ####[place] [address] UA RBC 25-50 Abnormal 0-2 [facility] Comment on above: Performed By: #### U AMIC, UA ####[place] [address] UA Squam Epithelial 3-5 Normal 0-20 [facility] Comment on above: Performed By: #### U AMIC, UA ####[facility] [place] [address] UA WBC 0-2 Normal 0-5 [facility] Comment on above: Performed By: #### U AMIC, UA ####[facility] [place] [address] .GFRon 06-24-2024 GFR/1.73 sq M.predicted among non-blacks MDRD (S/P/Bld) [Vol rate/Area] mL/min/{1.73_m2} Normal [facility] Comment on above: Result Comment: Stages of Chronic Kidney Disease (CKD) Stage Description eGFR(ml/min/1.73 sq.m.) CKD 1 Normal kidney function or >=90 normal kindney function with possible kidney damage (ex. Proteinuria) CKD 2 Kidney damage with mild loss 60-89 of kidney function CKD 3a Mild to moderate loss of kidney 45-59 function CKD 3b Moderate to severe loss of 30-44 of kindey function CKD 4 Severe loss of kidney function 15-29 CKD 5 Kidney failure <15 Note: (go live 2024) the eGFR calculation was updated to the 2020 CKD-EPI creatinine equation without a race factor to calculate the eGFR results. Performed By: #### G FR, ANEU, CBC, BMP, ADIFF #### [facility] [address] [place] [address] .Manual Diffon 06-24-2024 Bands 3.0 % Normal 0.0-5.0 [facility] Comment on above: Performed By: #### G FR, ANEU, CBC, BMP, ADIFF #### [facility] [address] [place] [address] Basophil %, Manual 0.0 % Normal 0.0-2.5 [facility] Comment on above: Performed By: #### G FR, ANEU, CBC, BMP, ADIFF #### [place] [address] Basophil, Abs Manual 0.0 10 3/mcL Normal 0.0-0.3 [facility] Comment on above: Performed By: #### G FR, ANEU, CBC, BMP, ADIFF #### [address] [address] Eosinophil %, Manual 0.0 % Normal 0.0-6.0 [facility] Comment on above: Performed By: #### G FR, ANEU, CBC, BMP, ADIFF #### [address] [address] Eosinophil, Abs Manual 0.0 10 3/mcL Normal 0.0-0.7 [facility] Comment on above: Performed By: #### G FR, ANEU, CBC, BMP, ADIFF #### [address] [address] Lymphocyte %, Manual 13.0 % Low 20.0-40.0 [facility] Comment on above: Performed By: #### G FR, ANEU, CBC, BMP, ADIFF #### [address] [address] Lymphocyte, Abs Manual 2.8 10 3/mcL Normal 0.9-4.3 [facility] Comment on above: Performed By: #### G FR, ANEU, CBC, BMP, ADIFF #### [address] [address] Monocyte %, Manual 5.0 % Normal 2.0-13.0 [facility] Comment on above: Performed By: #### G FR, ANEU, CBC, BMP, ADIFF #### [address] [address] Monocyte, Abs Manual 1.1 10 3/mcL Normal 0.1-1.4 [facility] Comment on above: Performed By: #### G FR, ANEU, CBC, BMP, ADIFF #### [address] [address] Myelocyte 1.0 % Normal [facility] Comment on above: Performed By: #### G FR, ANEU, CBC, BMP, ADIFF #### [address] [address] Neutrophil %, Manual 78.0 % High 50.0-75.0 [facility] Comment on above: Performed By: #### G FR, ANEU, CBC, BMP, ADIFF #### [place] [id number] Neutrophil, Abs Manual 17.8 10 3/mcL High 2.3-8.1 [facility] Comment on above: Performed By: #### G FR, ANEU, CBC, BMP, ADIFF #### [place] [id number] Nucleated RBC 0.0 /100 WBC Normal [facility] Comment on above: Performed By: #### G FR, ANEU, CBC, BMP, ADIFF #### [place] [id number] .Morphon 06-24-2024 Platelet Estimate Normal Normal [facility] Comment on above: Performed By: #### G FR, ANEU, CBC, BMP, ADIFF #### [place] [id number] RBC morphology finding Nom (Bld) Normal Normal [facility] Comment on above: Performed By: #### G FR, ANEU, CBC, BMP, ADIFF #### [place] [address] ABO/Rh (Gel)on 06-24-2024 ABO/Rh Interp Positive Invalid Interpretation Code [facility] Comment on above: Performed By: #### R BCP #### [address] 06-24-2024 BUN/Creatinine Ratio Unable to Calculate Normal 10.0-2 2.0 [facility] Comment on above: Result Comment: Unab le to calculate this test result accurately. Results used to calculate this test are outside the reportable range. Performed By: #### G FR, ANEU, CBC, BMP, ADIFF #### [place] [id number] Urea nitrogen [Mass/Vol] mg/dL Low 8.0-22.0 [facility] Comment on above: Performed By: #### G FR, ANEU, CBC, BMP, ADIFF #### [place] [address] Calcium [Mass/Vol] 9.0 mg/dL Normal 8.7-10.4 [facility] Comment on above: Performed By: #### G FR, ANEU, CBC, BMP, ADIFF #### [place] [id number] Chloride [Moles/Vol] 107 mmol/L Normal 98-110 [facility] Comment on above: Performed By: #### G FR, ANEU, CBC, BMP, ADIFF #### [place] [id number] CO2 [Moles/Vol] 21 mmol/L Low 22-32 [facility] Comment on above: Performed By: #### G FR, ANEU, CBC, BMP, ADIFF #### [place] [phone] Creatinine [Mass/Vol] 0.38 mg/dL Low 0.50-1.20 [facility] Comment on above: Result Comment: Test ing performed on [employer] analyzer using enzymatic creatinine methodology. Performed By: #### G FR, ANEU, CBC, BMP, ADIFF #### [place] [address] Electrolyte Balance 8.0 mEq/L Normal 4.0-15.0 [facility] Comment on above: Performed By: #### G FR, ANEU, CBC, BMP, ADIFF #### [place] [address] Glucose [Mass/Vol] 88 mg/dL Normal 70-110 [facility] Comment on above: Performed By: #### G FR, ANEU, CBC, BMP, ADIFF #### [place] [phone] Potassium [Moles/Vol] 3.8 mmol/L Normal 3.5-5.0 [facility] Comment on above: Performed By: #### G FR, ANEU, CBC, BMP, ADIFF #### [place] [phone] Sodium [Moles/Vol] 136 mmol/L Normal 136-145 [facility] Comment on above: Performed By: #### G FR, ANEU, CBC, BMP, ADIFF #### [place] [address] CBCon 06-24-2024 Erythrocyte distribution width (RBC) [Ratio] 13.2 % Normal 11.5-15.5 [facility] Comment on above: Performed By: #### G FR, ANEU, CBC, BMP, ADIFF #### [place] [address] Hematocrit (Bld) [Volume fraction] 32.8 % Low 34.0-46.0 [facility] Comment on above: Performed By: #### G FR, ANEU, CBC, BMP, ADIFF #### [place] [address] Hgb 11.0 G/dL Low 12.0-16.0 [facility] Comment on above: Performed By: #### G FR, ANEU, CBC, BMP, ADIFF #### [place] [address] MCH (RBC) [Entitic mass] 29.9 pg Normal 27.0-33.0 [facility] Comment on above: Performed By: #### G FR, ANEU, CBC, BMP, ADIFF #### [place] [address] MCHC 33.6 G/dL Normal 32.0-36.0 [facility] Comment on above: Performed By: #### G FR, ANEU, CBC, BMP, ADIFF #### [place] [address] MCV (RBC) [Entitic vol] 89.0 fL Normal 80.0-99.0 [facility] Comment on above: Performed By: #### G FR, ANEU, CBC, BMP, ADIFF #### [place] [id number] Platelet 343 10 3/mcL Normal 150-450 [facility] Comment on above: Performed By: #### G FR, ANEU, CBC, BMP, ADIFF #### [place] [address] Platelet mean volume (Bld) [Entitic vol] 6.9 fL Normal 6.6-10.5 [facility] Comment on above: Performed By: #### G FR, ANEU, CBC, BMP, ADIFF #### [address] [address] RBC 3.68 10 6/mcL Low 4.10-5.30 [facility] Comment on above: Performed By: #### G FR, ANEU, CBC, BMP, ADIFF #### [address] [address] WBC 21.9 10 3/mcL High 4.5-10.8 [facility] Comment on above: Performed By: #### G FR, ANEU, CBC, BMP, ADIFF #### [address] [address] HFPon 06-24-2024 Bili Indirect 0.4 mg/dL Normal 0.1-10.0 [facility] Comment on above: Performed By: #### G FR, ANEU, CBC, BMP, ADIFF #### [place] [address] Albumin Level 2.7 G/dL Low 3.2-4.8 [facility] Comment on above: Performed By: #### G FR, ANEU, CBC, BMP, ADIFF #### [place] [address] Albumin/Globulin [Mass ratio] 0.8 {ratio} Low 0.9-1.6 [facility] Comment on above: Performed By: #### G FR, ANEU, CBC, BMP, ADIFF #### [place] [address] ALP [Catalytic activity/Vol] 80 U/L Normal 33-118 [facility] Comment on above: Performed By: #### G FR, ANEU, CBC, BMP, ADIFF #### [address] [address] ALT [Catalytic activity/Vol] 51 U/L High 10-49 [facility] Comment on above: Performed By: #### G FR, ANEU, CBC, BMP, ADIFF #### [place] [id number] AST [Catalytic activity/Vol] 37 U/L High 8-34 [facility] Comment on above: Performed By: #### G FR, ANEU, CBC, BMP, ADIFF #### [address] [address] Bili Direct 0.2 mg/dL Normal 0.0-0.4 [facility] Comment on above: Result Comment: Use of this assay is not recommended for patients undergoing treatment with eltrombopag due to the potential for falsely elevated results. Performed By: #### G FR, ANEU, CBC, BMP, ADIFF #### [place] [address] Bili Total 0.60 mg/dL Normal 0.20-1.20 [facility] Comment on above: Result Comment: Use of this assay is not recommended for patients undergoing treatment with eltrombopag due to the potential for falsely elevated results. Performed By: #### G FR, ANEU, CBC, BMP, ADIFF #### [place] [address] Globulin 3.2 G/dL Normal 2.5-4.2 [facility] Comment on above: Performed By: #### G FR, ANEU, CBC, BMP, ADIFF #### [place] [address] Total Protein 5.9 G/dL Normal 5.7-8.2 [facility] Comment on above: Performed By: #### G FR, ANEU, CBC, BMP, ADIFF #### [place] [address] LABORATORYOrdered By: Les Sommers on 06-24-2024 ABO and Rh group Nom (Bld) Blood group B Rh(D) positive Invalid Interpretation Code AH BB Auto SS LABORATORYOrdered By: Victor Manuel Trejo on 06-24-2024 Blood group antibody screen Ql Negative ABSC (06/24/24 12:24 PM) Normal AH BB Auto SS LABORATORYOrdered By: [employer] on 06-24-2024 Lactate [Moles/Vol] 1.3 mmol/L Normal 0.5 - 2. 2 mmol/L AH ADM SS Albumin BCP dye [Mass/Vol] 2.7 G/dL Low 3.2 - 4.8 G/dL AH ADM SS Albumin/Globulin [Mass ratio] 0.8 {ratio} Low 0.9 - 1.6 ratio AH ADM SS ALP [Catalytic activity/Vol] 80 U/L Normal 33 - 118 U/L AH ADM SS ALT No additional P-5'-P [Catalytic activity/Vol] 51 U/L High 10 - 49 U/L AH ADM SS AST [Catalytic activity/Vol] 37 U/L High 8 - 34 U/L AH ADM SS Band form neutrophils/100 WBC (Bld) 3.0 % Normal 0.0 - 5.0 % Workflow SS Basophils (Bld) [#/Vol] 0.0 103/mcL Normal 0.0 - 0.3 10^3/mcL Workflow SS Basophils/100 WBC (Bld) 0.0 % Normal 0.0 - 2.5 % Workflow SS Bili Indirect 0.4 mg/dL Normal 0.1 - 10.0 mg/dL Chemistry S Bilirubin [Mass/Vol] 0.60 mg/dL Normal 0.20 - 1.20 mg/dL ADM SS Comment on above: Interpretive Data: U se of this assay is not recommended for patients undergoing treatment with eltrombopag due to the potential for falsely elevated results. Bilirubin.conjugated [Mass/Vol] 0.2 mg/dL Normal 0.0 - 0.4 mg/dL ADM SS Comment on above: Interpretive Data: U se of this assay is not recommended for patients undergoing treatment with eltrombopag due to the potential for falsely elevated results. Calcium [Mass/Vol] 9.0 mg/dL Normal 8.7 - 10. 4 mg/dL ADM SS Chloride [Moles/Vol] 107 mmol/L Normal 98 - 11 0 mEq/L ADM SS CO2 [Moles/Vol] 21 mmol/L Low 22 - 32 mEq/L ADM SS Creatinine [Mass/Vol] 0.38 mg/dL Low 0.50 - 1.20 mg/dL ADM SS Comment on above: Interpretive Data: T esting performed on [employer] analyzer using enzymatic creatinine methodology. Electrolyte Balance 8.0 mEq/L Normal 4.0 - 15 .0 mEq/L AH ADM SS Eosinophils (Bld) [#/Vol] 0.0 103/mcL Normal 0.0 - 0.7 10^3/mcL Workflow SS Eosinophils/100 WBC (Bld) 0.0 % Normal 0.0 - 6.0 % Workflow SS Estimated Glomerular Filtration Rate ml/min/1.73sqm Invalid Interpretation Code Chemistry S Comment on above: Interpretive Data: Stages of Chronic Kidney Disease (CKD) Stage Description eGFR(ml/min/1.73 sq.m.) CKD 1 Normal kidney function or >=90 normal kindney function with possible kidney damage (ex. Proteinuria) CKD 2 Kidney damage with mild loss 60-89 of kidney function CKD 3a Mild to moderate loss of kidney 45-59 function CKD 3b Moderate to severe loss of 30-44 of kindey function CKD 4 Severe loss of kidney function 15-29 CKD 5 Kidney failure <15 Note: (go live 2024) the eGFR calculation was updated to the 2020 CKD-EPI creatinine equation without a race factor to calculate the eGFR results. Globulin 3.2 G/dL Normal 2.5 - 4.2 G/dL ADM SS Glucose [Mass/Vol] 88 mg/dL Normal 70 - 110 mg/dL ADM SS Lymphocytes (Bld) [#/Vol] 2.8 103/mcL Normal 0.9 - 4.3 10^3/mcL Workflow SS Lymphocytes/100 WBC (Bld) 13.0 % Low 20.0 - 40.0 % Workflow SS Magnesium [Mass/Vol] 1.5 mg/dL Low 1.6 - 2 .4 mg/dL ADM SS Monocytes (Bld) [#/Vol] 1.1 103/mcL Normal 0.1 - 1.4 10^3/mcL Workflow SS Monocytes/100 WBC (Bld) 5.0 % Normal 2.0 - 13.0 % Workflow SS Myelocytes/100 WBC (Bld) 1.0 % Invalid Interpretation Code Workflow SS Neutrophils (Bld) [#/Vol] 17.8 103/mcL High 2.3 - 8.1 10^3/mcL Workflow SS Neutrophils/100 WBC (Bld) 78.0 % High 50.0 - 75.0 % Workflow SS Nucleated RBC 0.0 /100 WBC Invalid Interpretation Code Workflow SS Platelets LM Ql (Bld) Normal *NA* (06/24/24 3:35 AM) Invalid Interpretation Code Workflow SS Potassium [Moles/Vol] 3.8 mmol/L Normal 3.5 - 5.0 mEq/L AH ADM SS Protein [Mass/Vol] 5.9 G/dL Normal 5.7 - 8.2 G/dL AH ADM SS RBC morphology finding Nom (Bld) Normal *NA* (06/24/24 3:35 AM) Invalid Interpretation Code AH Workflow SS Sodium [Moles/Vol] 136 mmol/L Normal 136 - 145 mEq/L AH ADM SS LABORATORYOrdered By: Aylin Beard on 06-24-2024 Cholesterol [Mass/Vol] 106 mg/dL Normal 50 - 199 mg/dL AH Chemistry S Comment on above: Interpretive Data: C holesterol Reference Interval: Less than 200 Desirable 200-239 Borderline high risk 240 and above High risk Cholesterol in HDL [Mass/Vol] 44 mg/dL Normal 40 - 59 mg/dL AH Chemistry S Cholesterol in LDL [Mass/Vol] 41 mg/dL Normal 0 - 129 mg/dL Chemistry S Triglyceride [Mass/Vol] 103 mg/dL Normal 3 - 149 mg/dL AH Chemistry S Urea nitrogen [Mass/Vol] mg/dL Low 8.0 - 22.0 mg/dL AH Chemistry S Urea nitrogen/Creatinine [Mass ratio] Unable to Calculate Invalid Interpretation Code 10.0 - 22.0 AH Chemistry S Comment on above: Result Comment: Unab le to calculate this test result accurately. Results used to calculate this test are outside the reportable range. LACon 06-24-2024 Lactic Acid Lvl 1.3 mmol/L Normal 0.5-2.2 [facility] Comment on above: Performed By: #### G FR, ANEU, CBC, BMP, ADIFF #### [address] [address] LIPIDon 06-24-2024 Cholesterol [Mass/Vol] 106 mg/dL Normal 50-199 [facility] Comment on above: Result Comment: Chol esterol Reference Interval: Less than 200 Desirable 200-239 Borderline high risk 240 and above High risk Performed By: #### G FR, ANEU, CBC, BMP, ADIFF #### [address] [address] Cholesterol in HDL [Mass/Vol] 44 mg/dL Normal 40-59 [facility] Comment on above: Performed By: #### G FR, ANEU, CBC, BMP, ADIFF #### [address] [place], [place] [address] Cholesterol in LDL [Mass/Vol] 41 mg/dL Normal 0-129 [facility] Comment on above: Performed By: #### G FR, ANEU, CBC, BMP, ADIFF #### [address] [address] Triglyceride [Mass/Vol] 103 mg/dL Normal 3-149 [facility] Comment on above: Performed By: #### G FR, ANEU, CBC, BMP, ADIFF #### [address] [address] MGon 06-24-2024 Magnesium [Mass/Vol] 1.5 mg/dL Low 1.6-2.4 [facility] Comment on above: Performed By: #### G FR, ANEU, CBC, BMP, ADIFF #### [address] [address] No Panel Informationon 06-24 Culture Tissue Few Bacteroides thetaiotaomicron group Beta-Lactamase: Positive Susceptibility testing on anaerobic bacteria not done. Many technical and interpretive difficulties are associated with this testing and in many cases antimicrobial therapy is used as an adjunct to primary surgical management. Please contact Microbiology with any questions ([phone]). Neisseria gonorrhoeae: Negative Gardnerella vaginalis: Negative Final report to follow. [facility] GS 2+ Mononuclear cells 2+ Polymorphonuclear cells No organisms seen. [facility] Culture Wound Deep Panel Heavy Streptococcus anginosus Unable to perform sensitivity testing due to the fastidious nature of the organism. Moderate Normal skin jessica present. Sensitivity testing not indicated. Final report to follow. [facility] GS 4+ Polymorphonuclear cells 4+ Gram Negative Rods 3+ Gram Positive Cocci [facility] [facility] .Auto Diffon 06-23-2024 Basophil, Absolute 0.0 10 3/mcL Normal 0.0-0.3 [facility] Comment on above: Performed By: #### C BC, ANEU, MDW, CMP, LAC, ADIFF, GFR ####[facility] [place], [place] [address] Basophils/100 WBC (Bld) 0.1 % Normal 0.0-2.5 [facility] Comment on above: Performed By: #### C BC, ANEU, MDW, CMP, LAC, ADIFF, GFR ####[address] [place], [place] [address] Eosinophil, Absolute 0.0 10 3/mcL Normal 0.0-0.7 [facility] Comment on above: Performed By: #### C BC, ANEU, MDW, CMP, LAC, ADIFF, GFR ####[place] [address] [place], [place] [address] Eosinophils/100 WBC (Bld) 0.2 % Normal 0.0-6.0 [facility] Comment on above: Performed By: #### C BC, ANEU, MDW, CMP, LAC, ADIFF, GFR ####[place] [address] [place], [place] [address] Lymphocyte, Absolute 2.0 10 3/mcL Normal 0.9-4.3 [facility] Comment on above: Performed By: #### C BC, ANEU, MDW, CMP, LAC, ADIFF, GFR ####[address] [place], [place] [address] Lymphocytes/100 WBC (Bld) 12.7 % Low 20.0-40.0 [facility] Comment on above: Performed By: #### C BC, ANEU, MDW, CMP, LAC, ADIFF, GFR ####[place] [address] [place], [place] [address] Monocyte, Absolute 0.6 10 3/mcL Normal 0.1-1.4 [facility] Comment on above: Performed By: #### C BC, ANEU, MDW, CMP, LAC, ADIFF, GFR ####[facility] [place], [place] [address] Monocytes/100 WBC (Bld) 3.6 % Normal 2.0-13.0 [facility] Comment on above: Performed By: #### C BC, ANEU, MDW, CMP, LAC, ADIFF, GFR ####[place] [address] [place], [place] [address] Neutrophils/100 WBC (Bld) 83.4 % High 50.0-75.0 [facility] Comment on above: Performed By: #### C FRANSISCA, LIDIA, W, CMP, LAC, ADIFF, GFR ####[place] [address] [place], [place] [address] .GFRon 06-23-2024 GFR/1.73 sq M.predicted among non-blacks MDRD (S/P/Bld) [Vol rate/Area] mL/min/{1.73_m2} Normal [facility] Comment on above: Result Comment: Stages of Chronic Kidney Disease (CKD) Stage Description eGFR(ml/min/1.73 sq.m.) CKD 1 Normal kidney function or >=90 normal kindney function with possible kidney damage (ex. Proteinuria) CKD 2 Kidney damage with mild loss 60-89 of kidney function CKD 3a Mild to moderate loss of kidney 45-59 function CKD 3b Moderate to severe loss of 30-44 of kindey function CKD 4 Severe loss of kidney function 15-29 CKD 5 Kidney failure <15 Note: (go live 2024) the eGFR calculation was updated to the 2020 CKD-EPI creatinine equation without a race factor to calculate the eGFR results. Performed By: #### C FRANSISCA, LIDIA, W, CMP, LAC, ADIFF, GFR ####[address] [place], [place] [address] .MDWon 06-23-2024 Monocyte Distribution Width 19.93 Normal 0.00-20.00 [facility] Comment on above: Performed By: #### C FRANSISCA, LIDIA, W, CMP, LAC, ADIFF, GFR ####[address] [place], [place] [address] .NEUABSon 06-23-2024 Neutrophil, Absolute 13.3 10 3/mcL High 2.3-8.[address] [facility] Comment on above: Performed By: #### C FRANSISCA, LIDIA, W, CMP, LAC, ADIFF, GFR ####[address] [place], [place] [address] CBCon 06-23-2024 Erythrocyte distribution width (RBC) [Ratio] 13.1 % Normal 11.5-15.5 [facility] Comment on above: Performed By: #### C BC, LIDIA, MDW, CMP, LAC, ADIFF, GFR ####[address] [place] [address] Hematocrit (Bld) [Volume fraction] 37.0 % Normal 34.0-46.0 [facility] Comment on above: Performed By: #### C BC, LIDIA, MDW, CMP, LAC, ADIFF, GFR ####[address] [place] [address] Hgb 12.4 G/dL Normal 12.0-16.0 [facility] Comment on above: Performed By: #### C BC, LIDIA, MDW, CMP, LAC, ADIFF, GFR ####[address] [place] [address] MCH (RBC) [Entitic mass] 29.5 pg Normal 27.0-33.0 [facility] Comment on above: Performed By: #### C FRANSISCA, LIDIA, MDW, CMP, LAC, ADIFF, GFR ####[address] [place] [address] MCHC 33.4 G/dL Normal 32.0-36.0 [facility] Comment on above: Performed By: #### C FRANSISCA, LIDIA, W, CMP, LAC, ADIFF, GFR ####[address] [place] [address] MCV (RBC) [Entitic vol] 88.1 fL Normal 80.0-99.0 [facility] Comment on above: Performed By: #### C BC, LIDIA, MDW, CMP, LAC, ADIFF, GFR ####James [address] [place] [address] Platelet mean volume (Bld) [Entitic vol] 7.1 fL Normal 6.6-10.5 [facility] Comment on above: Performed By: #### C BC, LIDIA, MDW, CMP, LAC, ADIFF, GFR ####[address] [place], [place] [address] RBC 4.20 10 6/mcL Normal 4.10-5.30 [facility] Comment on above: Performed By: #### C BC, ANEU, MDW, CMP, LAC, ADIFF, GFR ####[address] [place], [place] [address] WBC 15.9 10 3/mcL High 4.5-10.8 [facility] Comment on above: Performed By: #### C BC, ANEU, MDW, CMP, LAC, ADIFF, GFR ####[address] [place], [place] [address] Platelet 343 10 3/mcL Normal 150-450 [facility] Comment on above: Performed By: #### C BC, LIDIA, MDW, CMP, LAC, ADIFF, GFR ####[address] [place], [place] [address] CMPon 06-23-2024 Albumin Level 2.5 G/dL Low 3.5-5.0 [facility] Comment on above: Performed By: #### C FRANSISCA, LIDIA, MDW, CMP, LAC, ADIFF, GFR ####[facility] [place], [place] [address] Albumin/Globulin [Mass ratio] 0.6 {ratio} Low 1.1-2.5 [facility] Comment on above: Performed By: #### C BC, LIDIA, MDW, CMP, LAC, ADIFF, GFR ####[place] [address] [place], [place] [address] ALP [Catalytic activity/Vol] 85 U/L Normal 40-135 [facility] Comment on above: Performed By: #### C BC, LIDIA, MDW, CMP, LAC, ADIFF, GFR ####James [address] [place], [place] [address] ALT [Catalytic activity/Vol] 55 U/L Normal 14-59 [facility] Comment on above: Performed By: #### C BC, LIDIA, MDW, CMP, LAC, ADIFF, GFR ####[facility] [place], [place] [address] AST [Catalytic activity/Vol] 39 U/L Normal 10-40 [facility] Comment on above: Performed By: #### C FRANSISCA, LIDIA, RAMEZ, CMP, LAC, ADIFF, GFR ####[facility] [place], [place] [address] Bili Total 0.5 mg/dL Normal 0.2-1.0 [facility] Comment on above: Result Comment: Use of this assay is not recommended for patients undergoing treatment with eltrombopag due to the potential for falsely elevated results. Performed By: #### C FRANSISCA, RAMEZ MURILLO, CMP, LAC, ADIFF, GFR ####[place] [address] [place], [place] [address] BUN/Creatinine Ratio 13 ratio Normal 7-27 [facility] Comment on above: Performed By: #### C FRANSISCA, RAMEZ MURILLO, CMP, LAC, ADIFF, GFR ####[place] [address] [place], [place] [address] Calcium [Mass/Vol] 9.1 mg/dL Normal 8.4-10.2 [facility] Comment on above: Performed By: #### C FRANSISCA, RAMEZ MURILLO, CMP, LAC, ADIFF, GFR ####[facility] [place], [place] [address] Chloride [Moles/Vol] 103 mmol/L Normal 98-107 [facility] Comment on above: Performed By: #### C FRANSISCA, RAMEZ MURILLO, CMP, LAC, ADIFF, GFR ####[facility] [place], [place] [address] CO2 [Moles/Vol] 22 mmol/L Normal 22-29 [facility] Comment on above: Performed By: #### C FRANSISCA, LIDIA, RAMEZ, CMP, LAC, ADIFF, GFR ####[facility] [place], [place] [address] Creatinine [Mass/Vol] 0.45 mg/dL Low 0.51-0.95 [facility] Comment on above: Performed By: #### C BC, LIDIA, MDW, CMP, LAC, ADIFF, GFR ####[address] [place], [place] [address] Electrolyte Balance 12.0 mEq/L Normal 4.0-15.0 [facility] Comment on above: Performed By: #### C BC, LIDIA, MDW, CMP, LAC, ADIFF, GFR ####[address] [place], [place] [address] Globulin 4.1 G/dL Normal 2.7-4.4 [facility] Comment on above: Performed By: #### C BC, LIDIA, W, CMP, LAC, ADIFF, GFR ####[address] [place], [place] [address] Glucose [Mass/Vol] 95 mg/dL Normal 70-105 [facility] Comment on above: Performed By: #### C BC, LIDIA, MDW, CMP, LAC, ADIFF, GFR ####James [address] [place], [place] [address] Potassium [Moles/Vol] 3.5 mmol/L Normal 3.5-5.1 [facility] Comment on above: Performed By: #### C FRANSISCA, LIDIA, MDW, CMP, LAC, ADIFF, GFR ####[address] [place], [place] [address] Sodium [Moles/Vol] 137 mmol/L Normal 136-145 [facility] Comment on above: Performed By: #### C BC, LIDIA, MDW, CMP, LAC, ADIFF, GFR ####[address] [place], [place] [address] Total Protein 6.6 G/dL Normal 6.4-8.2 [facility] Comment on above: Performed By: #### C BC, LIDIA, MDW, CMP, LAC, ADIFF, GFR ####[place] [address] [place], [place] [address] Urea nitrogen [Mass/Vol] 6 mg/dL Low 7-18 [facility] Comment on above: Performed By: #### C BC, ANEU, MDW, CMP, LAC, ADIFF, GFR ####James [address] [place] [address] LABORATORYOrdered By: SYSTEM SYSTEM on 06-23-2024 Albumin BCP dye [Mass/Vol] 2.5 G/dL Low 3.5 - 5.0 G/dL AO ADM SS Albumin/Globulin [Mass ratio] 0.6 {ratio} Low 1.1 - 2.5 ratio AO ADM SS ALP [Catalytic activity/Vol] 85 U/L Normal 40 - 135 U/L AO ADM SS ALT With P-5'-P [Catalytic activity/Vol] 55 U/L Normal 14 - 59 U/L AO ADM SS AST With P-5'-P [Catalytic activity/Vol] 39 U/L Normal 10 - 40 U/L AO ADM SS Bilirubin [Mass/Vol] 0.5 mg/dL Normal 0.2 - 1 .0 mg/dL AO ADM SS Comment on above: Interpretive Data: U se of this assay is not recommended for patients undergoing treatment with eltrombopag due to the potential for falsely elevated results. Calcium [Mass/Vol] 9.1 mg/dL Normal 8.4 - 10. 2 mg/dL AO ADM SS Chloride [Moles/Vol] 103 mmol/L Normal 98 - 10 7 mmol/L AO ADM SS CO2 [Moles/Vol] 22 mmol/L Normal 22 - 29 mmol/L AO ADM SS Creatinine [Mass/Vol] 0.45 mg/dL Low 0.51 - 0.95 mg/dL AO ADM SS Electrolyte Balance 12.0 mEq/L Normal 4.0 - 15 .0 mEq/L AO ADM SS Estimated Glomerular Filtration Rate ml/min/1.73sqm Invalid Interpretation Code AO Chemistry S Comment on above: Interpretive Data: Stages of Chronic Kidney Disease (CKD) Stage Description eGFR(ml/min/1.73 sq.m.) CKD 1 Normal kidney function or >=90 normal kindney function with possible kidney damage (ex. Proteinuria) CKD 2 Kidney damage with mild loss 60-89 of kidney function CKD 3a Mild to moderate loss of kidney 45-59 function CKD 3b Moderate to severe loss of 30-44 of kindey function CKD 4 Severe loss of kidney function 15-29 CKD 5 Kidney failure <15 Note: (go live 2024) the eGFR calculation was updated to the 2020 CKD-EPI creatinine equation without a race factor to calculate the eGFR results. Globulin 4.1 G/dL Normal 2.7 - 4.4 G/dL AO ADM SS Glucose [Mass/Vol] 95 mg/dL Normal 70 - 105 mg/dL AO ADM SS Lactate [Moles/Vol] 1.1 mmol/L Normal 0.4 - 2. 0 mmol/L AO ADM SS Platelets (Bld) [#/Vol] 343 103/mcL Normal 150 - 450 10^3/mcL AO Workflow SS Potassium [Moles/Vol] 3.5 mmol/L Normal 3.5 - 5.1 mmol/L AO ADM SS Protein [Mass/Vol] 6.6 G/dL Normal 6.4 - 8.2 G/dL AO ADM SS Sodium [Moles/Vol] 137 mmol/L Normal 136 - 145 mmol/L AO ADM SS Urea nitrogen [Mass/Vol] 6 mg/dL Low 7 - 18 mg/dL AO ADM SS Urea nitrogen/Creatinine [Mass ratio] 13 ratio Normal 7 - 27 ratio AO ADM SS LABORATORYOrdered By: Jourdan Donovan on 06-23-2024 Basophils (Bld) [#/Vol] 0.0 103/mcL Normal 0.0 - 0.3 10^3/mcL AO Hematology S Basophils/100 WBC (Bld) 0.1 % Normal 0.0 - 2.5 % AO [facility]ematology S Eosinophil, Absolute 0.0 103/mcL Normal 0.0 - 0 .7 10^3/mcL [facility] S Eosinophils/100 WBC (Bld) 0.2 % Normal 0.0 - 6.0 % AO Hematology S Erythrocyte distribution width (RBC) [Ratio] 13.1 % Normal 11.5 - 15.5 % AO Hematology S Hematocrit (Bld) [Volume fraction] 37.0 % Normal 34.0 - 46.0 % AO Hematology S Hemoglobin (Bld) [Mass/Vol] 12.4 G/dL Normal 12.0 - 16.0 G/dL AO Hematology S Lymphocytes (Bld) [#/Vol] 2.0 103/mcL Normal 0.9 - 4.3 10^3/mcL AO [facility]ematology S Lymphocytes/100 WBC (Bld) 12.7 % Low 20.0 - 40.0 % AO Hematology S MCH (RBC) [Entitic mass] 29.5 pg Normal 27.0 - 33.0 pg AO Hematology S MCHC 33.4 G/dL Normal 32.0 - 36.0 G/dL AO Hematology S MCV (RBC) [Entitic vol] 88.1 fL Normal 80.0 - 99.0 fL AO Hematology S Monocyte distribution width Auto (Bld) [Entitic vol] 19.93 1 Normal 0.00 - 20.00 [facility] S Monocytes (Bld) [#/Vol] 0.6 103/mcL Normal 0.1 - 1.4 10^3/mcL AO [facility]ematology S Monocytes/100 WBC (Bld) 3.6 % Normal 2.0 - 13.0 % AO Hematology S Neutrophils (Bld) [#/Vol] 13.3 103/mcL High 2.3 - 8.1 10^3/mcL AO Hematology S Neutrophils/100 WBC (Bld) 83.4 % High 50.0 - 75.0 % AO Hematology S Platelet mean volume (Bld) [Entitic vol] 7.1 fL Normal 6.6 - 10.5 fL AO Hematolog y S RBC (Bld) [#/Vol] 4.20 106/mcL Normal 4.10 - 5.3 0 10^6/mcL AO Hematology S WBC (Bld) [#/Vol] 15.9 103/mcL High 4.5 - 10.8 10^3/mcL AO Hematology S LACon 06-23-2024 Lactic Acid Lvl 1.1 mmol/L Normal 0.4-2.0 [facility] Comment on above: Performed By: #### C BC, ANEU, MDW, CMP, LAC, ADIFF, GFR ####[facility] [place], [place] [address] No Panel Informationon 06-23 Microscopic examination of blood, culture Culture has been received in lab and is no growth to date. Routine cultures are held for 5 days. [facility] .Auto Diffon 06-19-2024 Basophil, Absolute 0.0 10 3/mcL Normal 0.0-0.3 [facility] Comment on above: Performed By: #### A DIFF, CBC, ANEU, BMP, GFR, MG ####[address] [address] Basophils/100 WBC (Bld) 0.1 % Normal 0.0-2.5 [facility] Comment on above: Performed By: #### A DIFF, CBC, ANEU, BMP, GFR, MG ####[address] [address] Eosinophil, Absolute 0.0 10 3/mcL Normal 0.0-0.7 [facility] Comment on above: Performed By: #### A DIFF, CBC, ANEU, BMP, GFR, MG ####[address] [address] Eosinophils/100 WBC (Bld) 0.4 % Normal 0.0-6.0 [facility] Comment on above: Performed By: #### A DIFF, CBC, ANEU, BMP, GFR, MG ####[address] [address] Lymphocyte, Absolute 2.0 10 3/mcL Normal 0.9-4.3 [facility] Comment on above: Performed By: #### A DIFF, CBC, ANEU, BMP, GFR, MG ####[address] [address] Lymphocytes/100 WBC (Bld) 17.3 % Low 20.0-40.0 [facility] Comment on above: Performed By: #### A DIFF, CBC, ANEU, BMP, GFR, MG ####[address] [address] Monocyte, Absolute 1.1 10 3/mcL Normal 0.1-1.4 [facility] Comment on above: Performed By: #### A DIFF, CBC, ANEU, BMP, GFR, MG ####[address] [address] Monocytes/100 WBC (Bld) 9.6 % Normal 2.0-13.0 [facility] Comment on above: Performed By: #### A DIFF, CBC, ANEU, BMP, GFR, MG ####[address] [address] Neutrophils/100 WBC (Bld) 72.6 % Normal 50.0-75.0 [facility] Comment on above: Performed By: #### A DIFF, CBC, ANEU, BMP, GFR, MG ####[address] [address] .GFRon 06-19-2024 GFR/1.73 sq M.predicted among non-blacks MDRD (S/P/Bld) [Vol rate/Area] mL/min/{1.73_m2} Normal [facility] Comment on above: Result Comment: Stages of Chronic Kidney Disease (CKD) Stage Description eGFR(ml/min/1.73 sq.m.) CKD 1 Normal kidney function or >=90 normal kindney function with possible kidney damage (ex. Proteinuria) CKD 2 Kidney damage with mild loss 60-89 of kidney function CKD 3a Mild to moderate loss of kidney 45-59 function CKD 3b Moderate to severe loss of 30-44 of kindey function CKD 4 Severe loss of kidney function 15-29 CKD 5 Kidney failure <15 Note: (go live 2024) the eGFR calculation was updated to the 2020 CKD-EPI creatinine equation without a race factor to calculate the eGFR results. Performed By: #### A DIFF, CBC, ANEU, BMP, GFR, MG ####[address] [address] .NEUABSon 06-19-2024 Neutrophil, Absolute 8.4 10 3/mcL High 2.3-8.1 [facility] Comment on above: Performed By: #### A DIFF, CBC, ANEU, BMP, GFR, MG ####[address] [address] BMPon 06-19-2024 BUN/Creatinine Ratio 14.3 ratio Normal 10.0-22.0 [facility] Comment on above: Performed By: #### A DIFF, CBC, ANEU, BMP, GFR, MG ####[address] [address] Calcium [Mass/Vol] 8.9 mg/dL Normal 8.7-10.4 [facility] Comment on above: Performed By: #### A DIFF, CBC, ANEU, BMP, GFR, MG ####[place] [address] Chloride [Moles/Vol] 108 mmol/L Normal 98-110 [facility] Comment on above: Performed By: #### A DIFF, CBC, ANEU, BMP, GFR, MG ####[address] [address] CO2 [Moles/Vol] 22 mmol/L Normal 22-32 [facility] Comment on above: Performed By: #### A DIFF, CBC, ANEU, BMP, GFR, MG ####[address] [address] Creatinine [Mass/Vol] 0.35 mg/dL Low 0.50-1.20 [facility] Comment on above: Result Comment: Test ing performed on [employer] analyzer using enzymatic creatinine methodology. Performed By: #### A DIFF, CBC, ANEU, BMP, GFR, MG ####[address] [address] Electrolyte Balance 8.0 mEq/L Normal 4.0-15.0 [facility] Comment on above: Performed By: #### A DIFF, CBC, ANEU, BMP, GFR, MG ####[address] [address] Glucose [Mass/Vol] 86 mg/dL Normal 70-110 [facility] Comment on above: Performed By: #### A DIFF, CBC, ANEU, BMP, GFR, MG ####[address] [address] Potassium [Moles/Vol] 3.4 mmol/L Low 3.5-5.0 [facility] Comment on above: Performed By: #### A DIFF, CBC, ANEU, BMP, GFR, MG ####[address] [address] Sodium [Moles/Vol] 138 mmol/L Normal 136-145 [facility] Comment on above: Performed By: #### A DIFF, CBC, ANEU, BMP, GFR, MG ####[address] [address] Urea nitrogen [Mass/Vol] 5.0 mg/dL Low 8.0-22.0 [facility] Comment on above: Performed By: #### A DIFF, CBC, ANEU, BMP, GFR, MG ####[place] [address] CBCon 06-19-2024 Erythrocyte distribution width (RBC) [Ratio] 13.2 % Normal 11.5-15.5 [facility] Comment on above: Performed By: #### A DIFF, CBC, ANEU, BMP, GFR, MG ####[place] [address] Hematocrit (Bld) [Volume fraction] 32.8 % Low 34.0-46.0 [facility] Comment on above: Performed By: #### A DIFF, CBC, ANEU, BMP, GFR, MG ####[place] [address] Hgb 11.1 G/dL Low 12.0-16.0 [facility] Comment on above: Performed By: #### A DIFF, CBC, ANEU, BMP, GFR, MG ####[place] [address] MCH (RBC) [Entitic mass] 29.7 pg Normal 27.0-33.0 [facility] Comment on above: Performed By: #### A DIFF, CBC, ANEU, BMP, GFR, MG ####[place] [address] MCHC 34.0 G/dL Normal 32.0-36.0 [facility] Comment on above: Performed By: #### A DIFF, CBC, ANEU, BMP, GFR, MG ####[place] [address] MCV (RBC) [Entitic vol] 87.4 fL Normal 80.0-99.0 [facility] Comment on above: Performed By: #### A DIFF, CBC, ANEU, BMP, GFR, MG ####[place] [address] Platelet 233 10 3/mcL Normal 150-450 [facility] Comment on above: Performed By: #### A DIFF, CBC, ANEU, BMP, GFR, MG ####[place] [address] Platelet mean volume (Bld) [Entitic vol] 7.1 fL Normal 6.6-10.5 [facility] Comment on above: Performed By: #### A DIFF, CBC, ANEU, BMP, GFR, MG ####[place] [id number] [place] [address] RBC 3.75 10 6/mcL Low 4.10-5.30 [facility] Comment on above: Performed By: #### A DIFF, CBC, ANEU, BMP, GFR, MG ####[place] [address] [place] [address] WBC 11.5 10 3/mcL High 4.5-10.8 [facility] Comment on above: Performed By: #### A DIFF, CBC, ANEU, BMP, GFR, MG ####[address] [address] LABORATORYOrdered By: SYSTEM SYSTEM on 06-19-2024 Basophils (Bld) [#/Vol] 0.0 103/mcL Normal 0.0 - 0.3 10^3/mcL Workflow SS Basophils/100 WBC (Bld) 0.1 % Normal 0.0 - 2.5 % Workflow SS Calcium [Mass/Vol] 8.9 mg/dL Normal 8.7 - 10. 4 mg/dL ADM SS Chloride [Moles/Vol] 108 mmol/L Normal 98 - 11 0 mEq/L ADM SS CO2 [Moles/Vol] 22 mmol/L Normal 22 - 32 mEq/L ADM SS Creatinine [Mass/Vol] 0.35 mg/dL Low 0.50 - 1.20 mg/dL ADM SS Comment on above: Interpretive Data: T esting performed on [employer] analyzer using enzymatic creatinine methodology. Electrolyte Balance 8.0 mEq/L Normal 4.0 - 15 .0 mEq/L ADM SS Eosinophils (Bld) [#/Vol] 0.0 103/mcL Normal 0.0 - 0.7 10^3/mcL Workflow SS Eosinophils/100 WBC (Bld) 0.4 % Normal 0.0 - 6.0 % Workflow SS Erythrocyte distribution width (RBC) [Ratio] 13.2 % Normal 11.5 - 15.5 % Workflow SS Estimated Glomerular Filtration Rate ml/min/1.73sqm Invalid Interpretation Code Chemistry S Comment on above: Interpretive Data: Stages of Chronic Kidney Disease (CKD) Stage Description eGFR(ml/min/1.73 sq.m.) CKD 1 Normal kidney function or >=90 normal kindney function with possible kidney damage (ex. Proteinuria) CKD 2 Kidney damage with mild loss 60-89 of kidney function CKD 3a Mild to moderate loss of kidney 45-59 function CKD 3b Moderate to severe loss of 30-44 of kindey function CKD 4 Severe loss of kidney function 15-29 CKD 5 Kidney failure <15 Note: (go live 2024) the eGFR calculation was updated to the 2020 CKD-EPI creatinine equation without a race factor to calculate the eGFR results. Glucose [Mass/Vol] 86 mg/dL Normal 70 - 110 mg/dL ADM SS Hematocrit (Bld) [Volume fraction] 32.8 % Low 34.0 - 46.0 % AH Workflow SS Hemoglobin (Bld) [Mass/Vol] 11.1 G/dL Low 12.0 - 16.0 G/dL AH Workflow SS Lymphocytes (Bld) [#/Vol] 2.0 103/mcL Normal 0.9 - 4.3 10^3/mcL Workflow SS Lymphocytes/100 WBC (Bld) 17.3 % Low 20.0 - 40.0 % AH Workflow SS Magnesium [Mass/Vol] 1.6 mg/dL Normal 1.6 - 2 .4 mg/dL ADM SS MCH (RBC) [Entitic mass] 29.7 pg Normal 27.0 - 33.0 pg AH Workflow SS MCHC 34.0 G/dL Normal 32.0 - 36.0 G/dL AH Workflow SS MCV (RBC) [Entitic vol] 87.4 fL Normal 80.0 - 99.0 fL AH Workflow SS Monocytes (Bld) [#/Vol] 1.1 103/mcL Normal 0.1 - 1.4 10^3/mcL AH Workflow SS Monocytes/100 WBC (Bld) 9.6 % Normal 2.0 - 13.0 % AH Workflow SS Neutrophils (Bld) [#/Vol] 8.4 103/mcL High 2.3 - 8.1 10^3/mcL AH Workflow SS Neutrophils/100 WBC (Bld) 72.6 % Normal 50.0 - 75.0 % AH Workflow SS Platelet mean volume (Bld) [Entitic vol] 7.1 fL Normal 6.6 - 10.5 fL Workflow SS Platelets (Bld) [#/Vol] 233 103/mcL Normal 150 - 450 10^3/mcL AH Workflow SS Potassium [Moles/Vol] 3.4 mmol/L Low 3.5 - 5.0 mEq/L AH ADM SS RBC (Bld) [#/Vol] 3.75 106/mcL Low 4.10 - 5.3 0 10^6/mcL AH Workflow SS Sodium [Moles/Vol] 138 mmol/L Normal 136 - 145 mEq/L AH ADM SS Urea nitrogen [Mass/Vol] 5.0 mg/dL Low 8.0 - 22.0 mg/dL AH ADM SS Urea nitrogen/Creatinine [Mass ratio] 14.3 ratio Normal 10.0 - 22.0 ratio AH ADM SS WBC (Bld) [#/Vol] 11.5 103/mcL High 4.5 - 10.8 10^3/mcL AH Workflow SS MGon 06-19-2024 Magnesium [Mass/Vol] 1.6 mg/dL Normal 1.6-2.4 [facility] Comment on above: Performed By: #### A DIFF, CBC, ANEU, BMP, GFR, MG ####[address] [address] .Auto Diffon 06-18-2024 Basophil, Absolute 0.0 10 3/mcL Normal 0.0-0.3 [facility] Comment on above: Performed By: #### G FR, ANEU, CBC, BMP, ADIFF #### [address] [address] Basophils/100 WBC (Bld) 0.1 % Normal 0.0-2.5 [facility] Comment on above: Performed By: #### G FR, ANEU, CBC, BMP, ADIFF #### [address] [address] Eosinophil, Absolute 0.0 10 3/mcL Normal 0.0-0.7 [facility] Comment on above: Performed By: #### G FR, ANEU, CBC, BMP, ADIFF #### [address] [address] Eosinophils/100 WBC (Bld) 0.1 % Normal 0.0-6.0 [facility] Comment on above: Performed By: #### G FR, ANEU, CBC, BMP, ADIFF #### [address] [address] Lymphocyte, Absolute 1.3 10 3/mcL Normal 0.9-4.3 [facility] Comment on above: Performed By: #### G FR, ANEU, CBC, BMP, ADIFF #### [address] [address] Lymphocytes/100 WBC (Bld) 12.9 % Low 20.0-40.0 [facility] Comment on above: Performed By: #### G FR, ANEU, CBC, BMP, ADIFF #### [address] [address] Monocyte, Absolute 0.8 10 3/mcL Normal 0.1-1.4 [facility] Comment on above: Performed By: #### G FR, ANEU, CBC, BMP, ADIFF #### [address] [address] Monocytes/100 WBC (Bld) 7.8 % Normal 2.0-13.0 [facility] Comment on above: Performed By: #### G FR, ANEU, CBC, BMP, ADIFF #### [address] [address] Neutrophils/100 WBC (Bld) 79.1 % High 50.0-75.0 [facility] Comment on above: Performed By: #### G FR, ANEU, CBC, BMP, ADIFF #### [address] [address] .GFRon 06-18-2024 GFR/1.73 sq M.predicted among non-blacks MDRD (S/P/Bld) [Vol rate/Area] mL/min/{1.73_m2} Normal [facility] Comment on above: Result Comment: Stages of Chronic Kidney Disease (CKD) Stage Description eGFR(ml/min/1.73 sq.m.) CKD 1 Normal kidney function or >=90 normal kindney function with possible kidney damage (ex. Proteinuria) CKD 2 Kidney damage with mild loss 60-89 of kidney function CKD 3a Mild to moderate loss of kidney 45-59 function CKD 3b Moderate to severe loss of 30-44 of kindey function CKD 4 Severe loss of kidney function 15-29 CKD 5 Kidney failure <15 Note: (go live 2024) the eGFR calculation was updated to the 2020 CKD-EPI creatinine equation without a race factor to calculate the eGFR results. Performed By: #### G FR, ANEU, CBC, BMP, ADIFF #### [place] [address] .NEUABSon 06-18-2024 Neutrophil, Absolute 7.7 10 3/mcL Normal 2.3-8.1 [facility] Comment on above: Performed By: #### G FR, ANEU, CBC, BMP, ADIFF #### [place] [address] CBCon 06-18-2024 Erythrocyte distribution width (RBC) [Ratio] 13.2 % Normal 11.5-15.5 [facility] Comment on above: Performed By: #### G FR, ANEU, CBC, BMP, ADIFF #### [place] [address] Hematocrit (Bld) [Volume fraction] 32.8 % Low 34.0-46.0 [facility] Comment on above: Performed By: #### G FR, ANEU, CBC, BMP, ADIFF #### [place] [address] Hgb 11.3 G/dL Low 12.0-16.0 [facility] Comment on above: Performed By: #### G FR, ANEU, CBC, BMP, ADIFF #### [place] [address] MCH (RBC) [Entitic mass] 30.4 pg Normal 27.0-33.0 [facility] Comment on above: Performed By: #### G FR, ANEU, CBC, BMP, ADIFF #### [place] [address] MCHC 34.5 G/dL Normal 32.0-36.0 [facility] Comment on above: Performed By: #### G FR, ANEU, CBC, BMP, ADIFF #### [place] [address] MCV (RBC) [Entitic vol] 88.3 fL Normal 80.0-99.0 [facility] Comment on above: Performed By: #### G FR, ANEU, CBC, BMP, ADIFF #### [place] [address] Platelet 210 10 3/mcL Normal 150-450 [facility] Comment on above: Performed By: #### G FR, ANEU, CBC, BMP, ADIFF #### [place] [address] Platelet mean volume (Bld) [Entitic vol] 7.0 fL Normal 6.6-10.5 [facility] Comment on above: Performed By: #### G FR, ANEU, CBC, BMP, ADIFF #### [place] [address] RBC 3.71 10 6/mcL Low 4.10-5.30 [facility] Comment on above: Performed By: #### G FR, ANEU, CBC, BMP, ADIFF #### [place] [address] WBC 9.7 10 3/mcL Normal 4.5-10.8 [facility] Comment on above: Performed By: #### G FR, ANEU, CBC, BMP, ADIFF #### [place] [address] CMPon 06-18-2024 Albumin Level 2.4 G/dL Low 3.2-4.8 [facility] Comment on above: Performed By: #### G FR, ANEU, CBC, BMP, ADIFF #### [place] [address] Albumin/Globulin [Mass ratio] 0.8 {ratio} Low 0.9-1.6 [facility] Comment on above: Performed By: #### G FR, ANEU, CBC, BMP, ADIFF #### [place] [address] ALP [Catalytic activity/Vol] 58 U/L Normal 33-118 [facility] Comment on above: Performed By: #### G FR, ANEU, CBC, BMP, ADIFF #### [address] [address] ALT [Catalytic activity/Vol] 10 U/L Normal 10-49 [facility] Comment on above: Performed By: #### G FR, ANEU, CBC, BMP, ADIFF #### [address] [address] AST [Catalytic activity/Vol] 20 U/L Normal 8-34 [facility] Comment on above: Performed By: #### G FR, ANEU, CBC, BMP, ADIFF #### [address] [address] Bili Total 0.50 mg/dL Normal 0.20-1.20 [facility] Comment on above: Result Comment: Use of this assay is not recommended for patients undergoing treatment with eltrombopag due to the potential for falsely elevated results. Performed By: #### G FR, ANEU, CBC, BMP, ADIFF #### [place] [address] BUN/Creatinine Ratio 11.1 ratio Normal 10.0-22.0 [facility] Comment on above: Performed By: #### G FR, ANEU, CBC, BMP, ADIFF #### [place] [address] Calcium [Mass/Vol] 8.5 mg/dL Low 8.7-10.4 [facility] Comment on above: Performed By: #### G FR, ANEU, CBC, BMP, ADIFF #### [address] [address] Chloride [Moles/Vol] 106 mmol/L Normal 98-110 [facility] Comment on above: Performed By: #### G FR, ANEU, CBC, BMP, ADIFF #### [place] [id number] CO2 [Moles/Vol] 22 mmol/L Normal 22-32 [facility] Comment on above: Performed By: #### G FR, ANEU, CBC, BMP, ADIFF #### [facility] [address] [place], [place] [address] Creatinine [Mass/Vol] 0.45 mg/dL Low 0.50-1.20 [facility] Comment on above: Result Comment: Test ing performed on [employer] analyzer using enzymatic creatinine methodology. Performed By: #### G FR, ANEU, CBC, BMP, ADIFF #### [address] [address] Electrolyte Balance 12.0 mEq/L Normal 4.0-15.0 [facility] Comment on above: Performed By: #### G FR, ANEU, CBC, BMP, ADIFF #### [address] [address] Globulin 3.2 G/dL Normal 2.5-4.2 [facility] Comment on above: Performed By: #### G FR, ANEU, CBC, BMP, ADIFF #### [address] [address] Glucose [Mass/Vol] 92 mg/dL Normal 70-110 [facility] Comment on above: Performed By: #### G FR, ANEU, CBC, BMP, ADIFF #### [address] [address] Potassium [Moles/Vol] 3.0 mmol/L Low 3.5-5.0 [facility] Comment on above: Performed By: #### G FR, ANEU, CBC, BMP, ADIFF #### [address] [address] Sodium [Moles/Vol] 140 mmol/L Normal 136-145 [facility] Comment on above: Performed By: #### G FR, ANEU, CBC, BMP, ADIFF #### [address] [address] Total Protein 5.6 G/dL Low 5.7-8.2 [facility] Comment on above: Performed By: #### G FR, ANEU, CBC, BMP, ADIFF #### [address] [address] Urea nitrogen [Mass/Vol] 5.0 mg/dL Low 8.0-22.0 [facility] Comment on above: Performed By: #### G FR, ANEU, CBC, BMP, ADIFF #### [place] [address] Final Surgical Pathology Rep heather 06-18-2024 Final Surgical Pathology Report . Pathology Reports Accession: Collected Date/Time: Received Date/Time: Pathologist: [id number] 06/16/2024 17:53 EDT 06/17/2024 09:00 EDT MD ROSARIO TOVAR Final Surgical Pathology Report DIAGNOSIS: APPENDIX, APPENDECTOMY: - ACUTE APPENDICITIS CLINICAL INFORMATION: Procedure: OPEN APPENDECTOMY Preoperative diagnosis: ACUTE APPENDICITIS Postoperative diagnosis: ACUTE APPENDICITIS SPECIMEN: A APPENDIX GROSS DESCRIPTION: All parts labelled with patient name and [id number] Received in formalin labelled appendix Dimensions- 11.2 x 2.8 x 2.0 cm Serosal surface- brown-brown with hemorrhagic areas haney-white exudate and attached yellow mesoappendix. The appendix appears to be ruptured Lumen- contains hemorrhagic material, possible fecaliths also identified. Section closest to margin inked black Wall thickness- 0.1 to 0.3 cm. RS-1 Helen Manning, Grossing Maintenance Dispatcher/ Dr. Ian Kern, Pathologist Performed by Helen Manning MICROSCOPIC DESCRIPTION: The microscopic examination is performed, except in the case of Gross Only. Verified by Pathology Report verified by [facility] ROSARIO TOVAR MD Sign out Date: 06/18/2024 14:44 Performing Lab: [facility], [address] [place] [address] Pathology Dept Disclaimer If ancillary studies were utilized, the following Laboratory Developed Test (LDT) disclaimer will apply: Under CLIA requirements, [facility] Pathology Laboratory is qualified to perform high complexity testing. For all ancillary stains, positive and negative controls stain appropriately. Performance characteristics of immunohistochemical and chromogenic in-situ hybridization tests have been determined by [facility] Pathology Laboratory. These tests are used for clinical purposes, They should not be regarded as investigational or for research. . Normal [facility] Final Surgical Pathology Report Event Display: SP Micro The microscopic examination is performed, except in the case of Gross Only. MD ROSARIO TOVAR:VERIFY; Authored Date: [id number] [facility] Final Surgical Pathology Report Event Display: SP Dx APPENDIX, APPENDECTOMY: - ACUTE APPENDICITIS MD ROSARIO TOVAR:VERIFY; Authored Date: [id number] [facility] Final Surgical Pathology Report Event Display: SP Disclaimer If ancillary studies were utilized, the following Laboratory Developed Test (LDT) disclaimer will apply: Under CLIA requirements, [facility] Pathology Laboratory is qualified to perform high complexity testing. For all ancillary stains, positive and negative controls stain appropriately. Performance characteristics of immunohistochemical and chromogenic in-situ hybridization tests have been determined by [facility]ology Laboratory. These tests are used for clinical purposes, They should not be regarded as investigational or for research. . MD ROSARIO TOVAR:VERIFY; Authored Date: [id number] [facility] Final Surgical Pathology Report Event Display: SP Gross All parts labelled with patient name and [id number] Received in formalin labelled appendix Dimensions- 11.2 x 2.8 x 2.0 cm Serosal surface- brown-brown with hemorrhagic areas haney-white exudate and attached yellow mesoappendix. The appendix appears to be ruptured Lumen- contains hemorrhagic material, possible fecaliths also identified. Section closest to margin inked black Wall thickness- 0.1 to 0.3 cm. RS-1 Helen Manning, Grossing Maintenance Dispatcher/ Dr. Ian Kern, Pathologist Performed by MD ROSARIO Blackman:VERIFY; Authored Date: [id number] [facility] Final Surgical Pathology Report Event Display: SP Signature Pathology Report verified by [facility] ROSARIO TOVAR MD Sign out Date: 06/18/2024 14:44 Performing Lab: [facility], [address] [place] [address] Pathology Dept MD ROSARIO TOVAR:VERIFY; Authored Date: [facility] Final Surgical Pathology Report Event Display: SP Specimen AAPPENDIMD ROSARIO XIAO:VERIFY; Authored Date: [id number] [facility] LABORATORYOrdered By: SYSTEM SYSTEM on 06-18-2024 Albumin BCP dye [Mass/Vol] 2.4 G/dL Low 3.2 - 4.8 G/dL ADM SS Albumin/Globulin [Mass ratio] 0.8 {ratio} Low 0.9 - 1.6 ratio AH ADM SS ALP [Catalytic activity/Vol] 58 U/L Normal 33 - 118 U/L AH ADM SS ALT No additional P-5'-P [Catalytic activity/Vol] 10 U/L Normal 10 - 49 U/L ADM SS AST [Catalytic activity/Vol] 20 U/L Normal 8 - 34 U/L AH ADM SS Basophils (Bld) [#/Vol] 0.0 103/mcL Normal 0.0 - 0.3 10^3/mcL Workflow SS Basophils/100 WBC (Bld) 0.1 % Normal 0.0 - 2.5 % Workflow SS Bilirubin [Mass/Vol] 0.50 mg/dL Normal 0.20 - 1.20 mg/dL ADM SS Comment on above: Interpretive Data: U se of this assay is not recommended for patients undergoing treatment with eltrombopag due to the potential for falsely elevated results. Calcium [Mass/Vol] 8.5 mg/dL Low 8.7 - 10. 4 mg/dL AH ADM SS Chloride [Moles/Vol] 106 mmol/L Normal 98 - 11 0 mEq/L AH ADM SS CO2 [Moles/Vol] 22 mmol/L Normal 22 - 32 mEq/L ADM SS Creatinine [Mass/Vol] 0.45 mg/dL Low 0.50 - 1.20 mg/dL ADM SS Comment on above: Interpretive Data: T esting performed on [employer] analyzer using enzymatic creatinine methodology. Electrolyte Balance 12.0 mEq/L Normal 4.0 - 15 .0 mEq/L AH ADM SS Eosinophils (Bld) [#/Vol] 0.0 103/mcL Normal 0.0 - 0.7 10^3/mcL Workflow SS Eosinophils/100 WBC (Bld) 0.1 % Normal 0.0 - 6.0 % Workflow SS Erythrocyte distribution width (RBC) [Ratio] 13.2 % Normal 11.5 - 15.5 % Workflow SS Estimated Glomerular Filtration Rate ml/min/1.73sqm Invalid Interpretation Code Chemistry S Comment on above: Interpretive Data: Stages of Chronic Kidney Disease (CKD) Stage Description eGFR(ml/min/1.73 sq.m.) CKD 1 Normal kidney function or >=90 normal kindney function with possible kidney damage (ex. Proteinuria) CKD 2 Kidney damage with mild loss 60-89 of kidney function CKD 3a Mild to moderate loss of kidney 45-59 function CKD 3b Moderate to severe loss of 30-44 of kindey function CKD 4 Severe loss of kidney function 15-29 CKD 5 Kidney failure <15 Note: (go live 2024) the eGFR calculation was updated to the 2020 CKD-EPI creatinine equation without a race factor to calculate the eGFR results. Globulin 3.2 G/dL Normal 2.5 - 4.2 G/dL ADM SS Glucose [Mass/Vol] 92 mg/dL Normal 70 - 110 mg/dL ADM SS Hematocrit (Bld) [Volume fraction] 32.8 % Low 34.0 - 46.0 % Workflow SS Hemoglobin (Bld) [Mass/Vol] 11.3 G/dL Low 12.0 - 16.0 G/dL Workflow SS Lymphocytes (Bld) [#/Vol] 1.3 103/mcL Normal 0.9 - 4.3 10^3/mcL AH Workflow SS Lymphocytes/100 WBC (Bld) 12.9 % Low 20.0 - 40.0 % AH Workflow SS Magnesium [Mass/Vol] 1.6 mg/dL Normal 1.6 - 2 .4 mg/dL ADM SS MCH (RBC) [Entitic mass] 30.4 pg Normal 27.0 - 33.0 pg AH Workflow SS MCHC 34.5 G/dL Normal 32.0 - 36.0 G/dL Workflow SS MCV (RBC) [Entitic vol] 88.3 fL Normal 80.0 - 99.0 fL Workflow SS Monocytes (Bld) [#/Vol] 0.8 103/mcL Normal 0.1 - 1.4 10^3/mcL AH Workflow SS Monocytes/100 WBC (Bld) 7.8 % Normal 2.0 - 13.0 % AH Workflow SS Neutrophils (Bld) [#/Vol] 7.7 103/mcL Normal 2.3 - 8.1 10^3/mcL Workflow SS Neutrophils/100 WBC (Bld) 79.1 % High 50.0 - 75.0 % Workflow SS Platelet mean volume (Bld) [Entitic vol] 7.0 fL Normal 6.6 - 10.5 fL Workflow SS Platelets (Bld) [#/Vol] 210 103/mcL Normal 150 - 450 10^3/mcL Workflow SS Potassium [Moles/Vol] 3.0 mmol/L Low 3.5 - 5.0 mEq/L ADM SS Protein [Mass/Vol] 5.6 G/dL Low 5.7 - 8.2 G/dL ADM SS RBC (Bld) [#/Vol] 3.71 106/mcL Low 4.10 - 5.3 0 10^6/mcL Workflow SS Sodium [Moles/Vol] 140 mmol/L Normal 136 - 145 mEq/L ADM SS Urea nitrogen [Mass/Vol] 5.0 mg/dL Low 8.0 - 22.0 mg/dL ADM SS Urea nitrogen/Creatinine [Mass ratio] 11.1 ratio Normal 10.0 - 22.0 ratio ADM SS WBC (Bld) [#/Vol] 9.7 103/mcL Normal 4.5 - 10.8 10^3/mcL Workflow SS MGon 06-18-2024 Magnesium [Mass/Vol] 1.6 mg/dL Normal 1.6-2.4 [facility] Comment on above: Performed By: #### G FR, ANEU, CBC, BMP, ADIFF #### [address] [address] .Auto Diffon 06-17-2024 Basophil, Absolute 0.0 10 3/mcL Normal 0.0-0.3 [facility] Comment on above: Performed By: #### R BCP #### [address] [address] Basophils/100 WBC (Bld) 0.1 % Normal 0.0-2.5 [facility] Comment on above: Performed By: #### R BCP #### [address] [address] Eosinophil, Absolute 0.0 10 3/mcL Normal 0.0-0.7 [facility] Comment on above: Performed By: #### R BCP #### [address] [address] Eosinophils/100 WBC (Bld) 0.0 % Normal 0.0-6.0 [facility] Comment on above: Performed By: #### R BCP #### [address] [address] Lymphocyte, Absolute 0.6 10 3/mcL Low 0.9-4.3 [facility] Comment on above: Performed By: #### R BCP #### [address] [address] Lymphocytes/100 WBC (Bld) 3.8 % Low 20.0-40.0 [facility] Comment on above: Performed By: #### R BCP #### [address] [address] Monocyte, Absolute 0.8 10 3/mcL Normal 0.1-1.4 [facility] Comment on above: Performed By: #### R BCP #### [address] [address] Monocytes/100 WBC (Bld) 5.0 % Normal 2.0-13.0 [facility] Comment on above: Performed By: #### R BCP #### [address] [address] Neutrophils/100 WBC (Bld) 91.1 % High 50.0-75.0 [facility] Comment on above: Performed By: #### R BCP #### [address] [address] .GFRon 06-17-2024 GFR/1.73 sq M.predicted among non-blacks MDRD (S/P/Bld) [Vol rate/Area] mL/min/{1.73_m2} Normal [facility] Comment on above: Result Comment: Stages of Chronic Kidney Disease (CKD) Stage Description eGFR(ml/min/1.73 sq.m.) CKD 1 Normal kidney function or >=90 normal kindney function with possible kidney damage (ex. Proteinuria) CKD 2 Kidney damage with mild loss 60-89 of kidney function CKD 3a Mild to moderate loss of kidney 45-59 function CKD 3b Moderate to severe loss of 30-44 of kindey function CKD 4 Severe loss of kidney function 15-29 CKD 5 Kidney failure <15 Note: (go live 2024) the eGFR calculation was updated to the 2020 CKD-EPI creatinine equation without a race factor to calculate the eGFR results. Performed By: #### B MP, CBC, GFR, MG, ADIFF, ANEU ####[address] [address] .NEUABSon 06-17-2024 Neutrophil, Absolute 15.3 10 3/mcL High 2.3-8.1 [facility] Comment on above: Performed By: #### R BCP #### [address] [address] BMPon 06-17-2024 BUN/Creatinine Ratio 13.6 ratio Normal 10.0-22.0 [facility] Comment on above: Performed By: #### B MP, CBC, GFR, MG, ADIFF, ANEU ####[address] [address] Calcium [Mass/Vol] 9.2 mg/dL Normal 8.7-10.4 [facility] Comment on above: Performed By: #### B MP, CBC, GFR, MG, ADIFF, ANEU ####[place] [id number] Chloride [Moles/Vol] 105 mmol/L Normal 98-110 [facility] Comment on above: Performed By: #### B MP, CBC, GFR, MG, ADIFF, ANEU ####[place] [address] CO2 [Moles/Vol] 18 mmol/L Low 22-32 [facility] Comment on above: Performed By: #### B MP, CBC, GFR, MG, ADIFF, ANEU ####[place] [id number] Creatinine [Mass/Vol] 0.44 mg/dL Low 0.50-1.20 [facility] Comment on above: Result Comment: Test ing performed on [employer] analyzer using enzymatic creatinine methodology. Performed By: #### B MP, CBC, GFR, MG, ADIFF, ANEU ####[address] [address] Electrolyte Balance 14.0 mEq/L Normal 4.0-15.0 [facility] Comment on above: Performed By: #### B MP, CBC, GFR, MG, ADIFF, ANEU ####[place] [address] Glucose [Mass/Vol] 96 mg/dL Normal 70-110 [facility] Comment on above: Performed By: #### B MP, CBC, GFR, MG, ADIFF, ANEU ####[place] [address] Potassium [Moles/Vol] 3.5 mmol/L Normal 3.5-5.0 [facility] Comment on above: Performed By: #### B MP, CBC, GFR, MG, ADIFF, ANEU ####[place] [address] Sodium [Moles/Vol] 137 mmol/L Normal 136-145 [facility] Comment on above: Performed By: #### B MP, CBC, GFR, MG, ADIFF, ANEU ####[place] [address] Urea nitrogen [Mass/Vol] 6.0 mg/dL Low 8.0-22.0 [facility] Comment on above: Performed By: #### B MP, CBC, GFR, MG, ADIFF, ANEU ####[place] [id number] CBCon 06-17-2024 Erythrocyte distribution width (RBC) [Ratio] 13.3 % Normal 11.5-15.5 [facility] Comment on above: Performed By: #### R BCP #### [place] [address] Hematocrit (Bld) [Volume fraction] 33.0 % Low 34.0-46.0 [facility] Comment on above: Performed By: #### R BCP #### [place] [id number] Hgb 11.1 G/dL Low 12.0-16.0 [facility] Comment on above: Performed By: #### R BCP #### [place] [address] MCH (RBC) [Entitic mass] 30.0 pg Normal 27.0-33.0 [facility] Comment on above: Performed By: #### R BCP #### [place] [address] MCHC 33.7 G/dL Normal 32.0-36.0 [facility] Comment on above: Performed By: #### R BCP #### [place] [address] MCV (RBC) [Entitic vol] 89.0 fL Normal 80.0-99.0 [facility] Comment on above: Performed By: #### R BCP #### [place] [address] Platelet 219 10 3/mcL Normal 150-450 [facility] Comment on above: Performed By: #### R BCP #### [place] [address] Platelet mean volume (Bld) [Entitic vol] 7.7 fL Normal 6.6-10.5 [facility] Comment on above: Performed By: #### R BCP #### [place] [address] RBC 3.70 10 6/mcL Low 4.10-5.30 [facility] Comment on above: Performed By: #### R BCP #### [place] [address] WBC 16.8 10 3/mcL High 4.5-10.8 [facility] Comment on above: Performed By: #### R BCP #### [place] [address] CTPCRon 06-17-2024 C. trachomatis Interp Normal See CT Interp N [facility] Comment on above: Result Comment: C. t rachomatis DNA not detected. Specimen is presumptive negative for C. trachomatis. A negative result does not preclude C. trachomatis infection because results depend on adequate specimen collection, absence of inhibitors, and sufficient DNA to be detected. See CT Interp N Performed By: #### N GPCR1, CTPCR ####[place] [address] C.trachomatis PCR Negative Normal Negative [facility] Comment on above: Result Comment: Mole cular (PCR) assay performed on the [employer] system. Performed By: #### N GPCR1, CTPCR ####[place] [address] [employer] Cervix Normal [facility] Comment on above: Performed By: #### N GPCR1, CTPCR ####[place] [id number] [address] [place] [address] LABORATORYOrdered By: SYSTEM SYSTEM on 06-17-2024 Basophils (Bld) [#/Vol] 0.0 103/mcL Normal 0.0 - 0.3 10^3/mcL AH Workflow SS Basophils/100 WBC (Bld) 0.1 % Normal 0.0 - 2.5 % AH Workflow SS Calcium [Mass/Vol] 9.2 mg/dL Normal 8.7 - 10. 4 mg/dL ADM SS Chloride [Moles/Vol] 105 mmol/L Normal 98 - 11 0 mEq/L ADM SS CO2 [Moles/Vol] 18 mmol/L Low 22 - 32 mEq/L ADM SS Creatinine [Mass/Vol] 0.44 mg/dL Low 0.50 - 1.20 mg/dL ADM SS Comment on above: Interpretive Data: T esting performed on [employer] analyzer using enzymatic creatinine methodology. Electrolyte Balance 14.0 mEq/L Normal 4.0 - 15 .0 mEq/L ADM SS Eosinophils (Bld) [#/Vol] 0.0 103/mcL Normal 0.0 - 0.7 10^3/mcL AH Workflow SS Eosinophils/100 WBC (Bld) 0.0 % Normal 0.0 - 6.0 % AH Workflow SS Erythrocyte distribution width (RBC) [Ratio] 13.3 % Normal 11.5 - 15.5 % AH Workflow SS Estimated Glomerular Filtration Rate ml/min/1.73sqm Invalid Interpretation Code Chemistry S Comment on above: Interpretive Data: Stages of Chronic Kidney Disease (CKD) Stage Description eGFR(ml/min/1.73 sq.m.) CKD 1 Normal kidney function or >=90 normal kindney function with possible kidney damage (ex. Proteinuria) CKD 2 Kidney damage with mild loss 60-89 of kidney function CKD 3a Mild to moderate loss of kidney 45-59 function CKD 3b Moderate to severe loss of 30-44 of kindey function CKD 4 Severe loss of kidney function 15-29 CKD 5 Kidney failure <15 Note: (go live 2024) the eGFR calculation was updated to the 2020 CKD-EPI creatinine equation without a race factor to calculate the eGFR results. Glucose [Mass/Vol] 96 mg/dL Normal 70 - 110 mg/dL AH ADM SS Hematocrit (Bld) [Volume fraction] 33.0 % Low 34.0 - 46.0 % AH Workflow SS Hemoglobin (Bld) [Mass/Vol] 11.1 G/dL Low 12.0 - 16.0 G/dL AH Workflow SS Lymphocytes (Bld) [#/Vol] 0.6 103/mcL Low 0.9 - 4.3 10^3/mcL AH Workflow SS Lymphocytes/100 WBC (Bld) 3.8 % Low 20.0 - 40.0 % AH Workflow SS Magnesium [Mass/Vol] 1.7 mg/dL Normal 1.6 - 2 .4 mg/dL AH ADM SS MCH (RBC) [Entitic mass] 30.0 pg Normal 27.0 - 33.0 pg AH Workflow SS MCHC 33.7 G/dL Normal 32.0 - 36.0 G/dL AH Workflow SS MCV (RBC) [Entitic vol] 89.0 fL Normal 80.0 - 99.0 fL AH Workflow SS Monocytes (Bld) [#/Vol] 0.8 103/mcL Normal 0.1 - 1.4 10^3/mcL AH Workflow SS Monocytes/100 WBC (Bld) 5.0 % Normal 2.0 - 13.0 % AH Workflow SS Neutrophils (Bld) [#/Vol] 15.3 103/mcL High 2.3 - 8.1 10^3/mcL AH Workflow SS Neutrophils/100 WBC (Bld) 91.1 % High 50.0 - 75.0 % AH Workflow SS Platelet mean volume (Bld) [Entitic vol] 7.7 fL Normal 6.6 - 10.5 fL AH Workflow SS Platelets (Bld) [#/Vol] 219 103/mcL Normal 150 - 450 10^3/mcL AH Workflow SS Potassium [Moles/Vol] 3.5 mmol/L Normal 3.5 - 5.0 mEq/L ADM SS RBC (Bld) [#/Vol] 3.70 106/mcL Low 4.10 - 5.3 0 10^6/mcL AH Workflow SS Sodium [Moles/Vol] 137 mmol/L Normal 136 - 145 mEq/L AH ADM SS Urea nitrogen [Mass/Vol] 6.0 mg/dL Low 8.0 - 22.0 mg/dL AH ADM SS Urea nitrogen/Creatinine [Mass ratio] 13.6 ratio Normal 10.0 - 22.0 ratio AH ADM SS WBC (Bld) [#/Vol] 16.8 103/mcL High 4.5 - 10.8 10^3/mcL Workflow SS MGon 06-17-2024 Magnesium [Mass/Vol] 1.7 mg/dL Normal 1.6-2.4 [facility] Comment on above: Performed By: #### B MP, CBC, GFR, MG, ADIFF, ANEU ####[address] [address] [id number] 06-17-2024 GC PCR Source Cervix Normal [facility] Comment on above: Performed By: #### N GPCR1, CTPCR ####[address] [address] N. gonorrhoeae (PCR) Negative Normal Negative [facility] Comment on above: Result Comment: Mole cular (PCR) assay performed on the [employer]00 System. Performed By: #### N GPCR1, CTPCR ####[address] [address] N. gonorrhoeae Interp Normal See NG Interp N [facility] Comment on above: Result Comment: N. g onorrhoeae DNA not detected. Specimen is presumptive negative for N. gonorrhoeae. A negative result does not preclude Neisseria gonorrhoeae infection because results depend on adequate specimen collection, absence of inhibitors, and sufficient DNA to be detected. See NG Interp N Performed By: #### N GPCR1, CTPCR ####[address] [address] .Auto Diffon 06-16-2024 Basophil, Absolute 0.0 10 3/mcL Normal 0.0-0.3 [facility] Comment on above: Performed By: #### M G, GFR, ADIFF, LAC, PRO, CMP, CBC, ANEU ####[address] [address] Basophils/100 WBC (Bld) 0.1 % Normal 0.0-2.5 [facility] Comment on above: Performed By: #### M G, GFR, ADIFF, LAC, PRO, CMP, CBC, ANEU ####[address] [address] Eosinophil, Absolute 0.0 10 3/mcL Normal 0.0-0.7 [facility] Comment on above: Performed By: #### M G, GFR, ADIFF, LAC, PRO, CMP, CBC, ANEU ####[address] [address] Eosinophils/100 WBC (Bld) 0.0 % Normal 0.0-6.0 [facility] Comment on above: Performed By: #### M G, GFR, ADIFF, LAC, PRO, CMP, CBC, ANEU ####[address] [address] Lymphocyte, Absolute 0.9 10 3/mcL Normal 0.9-4.3 [facility] Comment on above: Performed By: #### M G, GFR, ADIFF, LAC, PRO, CMP, CBC, ANEU ####[address] [address] Lymphocytes/100 WBC (Bld) 5.4 % Low 20.0-40.0 [facility] Comment on above: Performed By: #### M G, GFR, ADIFF, LAC, PRO, CMP, CBC, ANEU ####[address] [address] Monocyte, Absolute 0.8 10 3/mcL Normal 0.1-1.4 [facility] Comment on above: Performed By: #### M G, GFR, ADIFF, LAC, PRO, CMP, CBC, ANEU ####[address] [address] Monocytes/100 WBC (Bld) 5.2 % Normal 2.0-13.0 [facility] Comment on above: Performed By: #### M G, GFR, ADIFF, LAC, PRO, CMP, CBC, ANEU ####[place] [address] Neutrophils/100 WBC (Bld) 89.3 % High 50.0-75.0 [facility] Comment on above: Performed By: #### M G, GFR, ADIFF, LAC, PRO, CMP, CBC, ANEU ####[place] [address] .GFRon 06-16-2024 GFR/1.73 sq M.predicted among non-blacks MDRD (S/P/Bld) [Vol rate/Area] mL/min/{1.73_m2} Normal [facility] Comment on above: Result Comment: Stages of Chronic Kidney Disease (CKD) Stage Description eGFR(ml/min/1.73 sq.m.) CKD 1 Normal kidney function or >=90 normal kindney function with possible kidney damage (ex. Proteinuria) CKD 2 Kidney damage with mild loss 60-89 of kidney function CKD 3a Mild to moderate loss of kidney 45-59 function CKD 3b Moderate to severe loss of 30-44 of kindey function CKD 4 Severe loss of kidney function 15-29 CKD 5 Kidney failure <15 Note: (go live 2024) the eGFR calculation was updated to the 2020 CKD-EPI creatinine equation without a race factor to calculate the eGFR results. Performed By: #### M G, GFR, ADIFF, LAC, PRO, CMP, CBC, ANEU ####[place] [address] .NEUABSon 06-16-2024 Neutrophil, Absolute 14.4 10 3/mcL High 2.3-8.1 [facility] Comment on above: Performed By: #### M G, GFR, ADIFF, LAC, PRO, CMP, CBC, ANEU ####[place] [address] CBCon 06-16-2024 Erythrocyte distribution width (RBC) [Ratio] 12.9 % Normal 11.5-15.5 [facility] Comment on above: Performed By: #### M G, GFR, ADIFF, LAC, PRO, CMP, CBC, ANEU ####[place] [address] Hematocrit (Bld) [Volume fraction] 34.2 % Normal 34.0-46.0 [facility] Comment on above: Performed By: #### M G, GFR, ADIFF, LAC, PRO, CMP, CBC, ANEU ####[place] [address] Hgb 11.5 G/dL Low 12.0-16.0 [facility] Comment on above: Performed By: #### M G, GFR, ADIFF, LAC, PRO, CMP, CBC, ANEU ####[place] [address] MCH (RBC) [Entitic mass] 29.8 pg Normal 27.0-33.0 [facility] Comment on above: Performed By: #### M G, GFR, ADIFF, LAC, PRO, CMP, CBC, ANEU ####[place] [address] MCHC 33.7 G/dL Normal 32.0-36.0 [facility] Comment on above: Performed By: #### M G, GFR, ADIFF, LAC, PRO, CMP, CBC, ANEU ####[place] [address] MCV (RBC) [Entitic vol] 88.4 fL Normal 80.0-99.0 [facility] Comment on above: Performed By: #### M G, GFR, ADIFF, LAC, PRO, CMP, CBC, ANEU ####[place] [address] Platelet 193 10 3/mcL Normal 150-450 [facility] Comment on above: Performed By: #### M G, GFR, ADIFF, LAC, PRO, CMP, CBC, ANEU ####[place] [address] Platelet mean volume (Bld) [Entitic vol] 7.3 fL Normal 6.6-10.5 [facility] Comment on above: Performed By: #### M G, GFR, ADIFF, LAC, PRO, CMP, CBC, ANEU ####[address] [address] RBC 3.87 10 6/mcL Low 4.10-5.30 [facility] Comment on above: Performed By: #### M G, GFR, ADIFF, LAC, PRO, CMP, CBC, ANEU ####[address] [address] WBC 16.1 10 3/mcL High 4.5-10.8 [facility] Comment on above: Performed By: #### M G, GFR, ADIFF, LAC, PRO, CMP, CBC, ANEU ####[address] [address] CMPon 06-16-2024 BUN/Creatinine Ratio Unable to Calculate Normal 10.0-2 2.0 [facility] Comment on above: Result Comment: Unab le to calculate this test result accurately. Results used to calculate this test are outside the reportable range. Performed By: #### M G, GFR, ADIFF, LAC, PRO, CMP, CBC, ANEU ####[place] [address] Urea nitrogen [Mass/Vol] mg/dL Low 8.0-22.0 [facility] Comment on above: Performed By: #### M G, GFR, ADIFF, LAC, PRO, CMP, CBC, ANEU ####[address] [address] Albumin Level 2.9 G/dL Low 3.2-4.8 [facility] Comment on above: Performed By: #### M G, GFR, ADIFF, LAC, PRO, CMP, CBC, ANEU ####[address] [address] Albumin/Globulin [Mass ratio] 0.9 {ratio} Normal 0.9-1.6 [facility] Comment on above: Performed By: #### M G, GFR, ADIFF, LAC, PRO, CMP, CBC, ANEU ####[address] [address] ALP [Catalytic activity/Vol] 52 U/L Normal 33-118 [facility] Comment on above: Performed By: #### M G, GFR, ADIFF, LAC, PRO, CMP, CBC, ANEU ####[address] [address] ALT [Catalytic activity/Vol] 8 U/L Low 10-49 [facility] Comment on above: Performed By: #### M G, GFR, ADIFF, LAC, PRO, CMP, CBC, ANEU ####[address] [address] AST [Catalytic activity/Vol] 16 U/L Normal 8-34 [facility] Comment on above: Performed By: #### M G, GFR, ADIFF, LAC, PRO, CMP, CBC, ANEU ####[address] [address] Bili Total 0.60 mg/dL Normal 0.20-1.20 [facility] Comment on above: Result Comment: Use of this assay is not recommended for patients undergoing treatment with eltrombopag due to the potential for falsely elevated results. Performed By: #### M G, GFR, ADIFF, LAC, PRO, CMP, CBC, ANEU ####[address] [address] Calcium [Mass/Vol] 9.3 mg/dL Normal 8.7-10.4 [facility] Comment on above: Performed By: #### M G, GFR, ADIFF, LAC, PRO, CMP, CBC, ANEU ####[address] [address] Chloride [Moles/Vol] 104 mmol/L Normal 98-110 [facility] Comment on above: Performed By: #### M G, GFR, ADIFF, LAC, PRO, CMP, CBC, ANEU ####[address] [address] CO2 [Moles/Vol] 19 mmol/L Low 22-32 [facility] Comment on above: Performed By: #### M G, GFR, ADIFF, LAC, PRO, CMP, CBC, ANEU ####[address] [address] Creatinine [Mass/Vol] 0.45 mg/dL Low 0.50-1.20 [facility] Comment on above: Result Comment: Test ing performed on [employer] analyzer using enzymatic creatinine methodology. Performed By: #### M G, GFR, ADIFF, LAC, PRO, CMP, CBC, ANEU ####[place] [address] Electrolyte Balance 15.0 mEq/L Normal 4.0-15.0 [facility] Comment on above: Performed By: #### M G, GFR, ADIFF, LAC, PRO, CMP, CBC, ANEU ####[place] [address] Globulin 3.1 G/dL Normal 2.5-4.2 [facility] Comment on above: Performed By: #### M G, GFR, ADIFF, LAC, PRO, CMP, CBC, ANEU ####[place] [address] Glucose [Mass/Vol] 97 mg/dL Normal 70-110 [facility] Comment on above: Performed By: #### M G, GFR, ADIFF, LAC, PRO, CMP, CBC, ANEU ####[place] [address] Potassium [Moles/Vol] 3.4 mmol/L Low 3.5-5.0 [facility] Comment on above: Performed By: #### M G, GFR, ADIFF, LAC, PRO, CMP, CBC, ANEU ####[place] [id number] Sodium [Moles/Vol] 138 mmol/L Normal 136-145 [facility] Comment on above: Performed By: #### M G, GFR, ADIFF, LAC, PRO, CMP, CBC, ANEU ####[place] [address] Total Protein 6.0 G/dL Normal 5.7-8.2 [facility] Comment on above: Performed By: #### M G, GFR, ADIFF, LAC, PRO, CMP, CBC, ANEU ####[place] [address] CNPMayelin 06-16-2024 CNPN Telephone (OBGYWM) KIM NGUYEN ([id number]) 3 F Date Time Provider Department 06/16/24 JOCELYN YUSUF During your visit today, we recorded the following information about you: Franco Ritchie RN 06/16/2024 9:01 AM Addendum 18w3d ER report received from [facility] this morning-Pt to ER on 06/13/24 for abdominal pain since 06/12/24. Per ER Dr documentation- JACKELYN sheth. Suspected UTI-UA and culture obtained, consistent with infection. Pt started on Macrobid and advised to f/u with OB provider. Pt's next OB appt is 07/01/24 at 9am. Do you advise Pt be seen sooner or call office if sx not improved? Please advise. Copy of ER report placed in scanning. JOSÉ MANUEL Osorio Jennifer, MD 06/16/2024 11:18 AM Signed No can follow up as scheduled if her symptoms improve Aurora Cuevas RN 06/16/2024 1:56 PM Signed Left message for patient to call office. Aurora Cuevas RN Allergies As of Date: 06/16/2024 Noted Allergy Reaction CAMPHOR 09/18/2018 14 - Other: See Comments EUCALYPTUS 09/18/2018 14 - Other: See Comments MENTHOL 09/18/2018 14 - Other: See Comments PETROLATUM,WHITE 09/18/2018 14 - Other: See Comments TURPENTINE 11/28/2021 14 - Other: See Comments SAJAN TRONCOSOUB ([id number]*0 04/22/2019 5 - Intolerance Comments: blistering Date Reviewed: 06/05/2024 Reviewed by: Henrietta Sotomayor MA - Fully Assessed Reason for Visit: Seen in ER 06/13/24 for UTI [Other] Prescriptions as of 06/20/2024 - aspirin, enteric coated (ECOTRIN LOW STRENGTH) 81 mg EC tablet Take 1 tablet by mouth once daily. - VIT 3-SMCR-MBZCR-DHA ORAL Take by mouth. - pyridoxine HCl, vitamin B6, (PYRIDOXINE ORAL) Take by mouth. - ferrous sulfate (IRON) 325 mg (65 mg iron) tablet Take 325 mg by mouth. - folic acid 400 mcg tablet Take 400 mcg by mouth once daily. - Sulfacetamide Sodium, Acne, 10 % susp APPLY A THIN LAYER TO THE FACE 1-2 TIMES DAILY Problem List As Of Date 06/16/2024 Noted Resolved BMI 36.0-36.9,adult [Z68.36] 05/06/2024 Encounter for supervision of normal first pregn*05/06/2024 UTI (urinary tract infection) in , ant*05/07/2024 Encounter Status:Closed by FRANCO RITCHIE on 06/20/24 Normal [facility] CRPHSon 06-16-2024 CRP, High Sensitive >200.00 High 0.20-3.00 [facility] Comment on above: Result Comment: Rela tive Risk Category and Average hs-CRP Level: Higher Risk: > 5.0 mg/L Guidelines support that hs-CRP can be used as an independent predictor of increased coronary risk; however, hs-CRP results should only be interpreted in conjunction with other cardiac risk factors in establishing overall cardiac risk for a given patient. Performed By: #### [facility] ####[place] [address] LABORATORYOrdered By: SYSTEM SYSTEM on 06-16-2024 Albumin BCP dye [Mass/Vol] 2.9 G/dL Low 3.2 - 4.8 G/dL ADM SS Albumin/Globulin [Mass ratio] 0.9 {ratio} Normal 0.9 - 1.6 ratio ADM SS ALP [Catalytic activity/Vol] 52 U/L Normal 33 - 118 U/L ADM SS ALT No additional P-5'-P [Catalytic activity/Vol] 8 U/L Low 10 - 49 U/L ADM SS AST [Catalytic activity/Vol] 16 U/L Normal 8 - 34 U/L ADM SS Bilirubin [Mass/Vol] 0.60 mg/dL Normal 0.20 - 1.20 mg/dL ADM SS Comment on above: Interpretive Data: U se of this assay is not recommended for patients undergoing treatment with eltrombopag due to the potential for falsely elevated results. Globulin 3.1 G/dL Normal 2.5 - 4.2 G/dL ADM SS Protein [Mass/Vol] 6.0 G/dL Normal 5.7 - 8.2 G/dL ADM SS Lactate [Moles/Vol] 0.7 mmol/L Normal 0.5 - 2. 2 mmol/L ADM SS PT Coag (PPP) [Time] 15.0 s High 9.0 - 1 4.4 seconds [facility] Comment on above: Interpretive Data: E ffective 08/27/07, Protime results may be affected by some antibiotics (i.e. Ciprofloxacin, Azithromycin, Bactrim) which may potentiate the action of oral anticoagulants, with further increases in Protime/INR. PT International Ratio 1.3 ratio Invalid Interpretation Code [facility] Comment on above: Interpretive Data: Josefina murdock [employer] (CHEST, 1992, 102:312S-25S) recommended therapeutic range for oral anticoagulant therapy is: LOW RISK: Prophylaxis of venous thrombosis INR: 2.0-3.0 Treatment of pulmonary embolism 2.0-3.0 Prevention of systemic embolism 2.0-3.0 HIGH RISK: Mechanical prosthetic valves 2.5-3.5 LACon 06-16-2024 Lactic Acid Lvl 0.7 mmol/L Normal 0.5-2.2 [facility] Comment on above: Performed By: #### M G, GFR, ADIFF, LAC, PRO, CMP, CBC, ANEU ####[place] [id number] [place] [address] MGon 06-16-2024 Magnesium [Mass/Vol] 1.7 mg/dL Normal 1.6-2.4 [facility] Comment on above: Performed By: #### M G, GFR, ADIFF, LAC, PRO, CMP, CBC, ANEU ####[place] [id number] [place] [id number] No Panel Informationon 06-16 Microscopic examination of blood, culture Culture has been received in lab and is no growth to date. Routine cultures are held for 5 days. [facility] PROon 06-16-2024 INR Coag (PPP) [Relative time] 1.3 {INR} Normal [facility] Comment on above: Result Comment: [employer] (CHEST, 1992, 102:312S-25S) recommended therapeutic range for oral anticoagulant therapy is: LOW RISK: Prophylaxis of venous thrombosis INR: 2.0-3.0 Treatment of pulmonary embolism 2.0-3.0 Prevention of systemic embolism 2.0-3.0 HIGH RISK: Mechanical prosthetic valves 2.5-3.5 Performed By: #### M G, GFR, ADIFF, LAC, PRO, CMP, CBC, ANEU ####[facility] [place] [id number] PT Coag (PPP) [Time] 15.0 s High 9.0-14.4 [facility] Comment on above: Result Comment: Effe ctive 08/27/07, Protime results may be affected by some antibiotics (i.e. Ciprofloxacin, Azithromycin, Bactrim) which may potentiate the action of oral anticoagulants, with further increases in Protime/INR. Performed By: #### M G, GFR, ADIFF, LAC, PRO, CMP, CBC, ANEU ####[facility] [place] [id number] US PELVIS NON-OB COMPLETEon 06-16-2024 US PELVIS NON-OB COMPLETE ORIGINAL EXAMINATION: Ultrasound pelvis and right lower quadrant with duplex ovarian Doppler, 06/16/2024 11:18 am COMPARISON: None TECHNIQUE: Transabdominal study of the right lower quadrant and pelvis is performed. Duplex evaluation of the ovaries is also performed. This report is based on interpretation of permanently recorded ultrasound images. HISTORY: ORDERING SYSTEM PROVIDED HISTORY: Reason for Exam: rlq pain, patient is 18 weeks FINDINGS: The is not evaluated on this study. Right ovary: 4.1 x 2.6 x 2.9 cm. There is a 1.6 cm hypoechoic mildly complex cystic lesion in the ovary that is probably corpus luteal. Left ovary: 3.3 x 1.3 x 3.1 cm. No suspicious ovarian lesion. There is blood flow to both ovaries with color Doppler. Spectral analysis shows arterial inflow and venous outflow waveforms in both ovaries also. No pelvic free fluid is visualized on this study. Right lower quadrant imaging visualizes a blindly ending tubular structure that is believed to be the appendix. This is about 10 cm in length and 14 mm in diameter. The posterior wall of the appendix is up to 5 mm in thickness. There is an appendicoliths at its base but moderate air is present in its lumen. No surrounding fluid collection is seen. Technologist reports rebound tenderness over this structure. IMPRESSION: Normal ovaries with robust blood flow on duplex Doppler. Abnormal appearance of the appendix suggesting acute appendicitis in the appropriate clinical setting. Interpreted by: Annamaria Magaña MD Preliminary Report By: Annamaria Magaña MD Electronically signed By Annamaria Magaña MD Dictated Date: 06/16/2024 11:22:58 AM Prelim Date: 06/16/2024 11:29:08 AM Sign Date: 06/16/2024 11:29:08 AM Ordering Provider: TANIA Orosco [facility] .Auto Diffon 06-15-2024 Basophil, Absolute 0.0 10 3/mcL Normal 0.0-0.3 [facility] Comment on above: Performed By: #### C BC, ADIFF, ANEU, SHAYY, LAC #### [address] [address] Basophils/100 WBC (Bld) 0.2 % Normal 0.0-2.5 [facility] Comment on above: Performed By: #### C BC, ADIFF, ANEU, SHAYY, LAC #### [address] [address] Eosinophil, Absolute 0.0 10 3/mcL Normal 0.0-0.7 [facility] Comment on above: Performed By: #### C BC, ADIFF, ANEU, SHAYY, LAC #### [address] [address] Eosinophils/100 WBC (Bld) 0.0 % Normal 0.0-6.0 [facility] Comment on above: Performed By: #### C BC, ADIFF, ANEU, SHAYY, LAC #### [place] [address] [place], [place] [address] Lymphocyte, Absolute 1.3 10 3/mcL Normal 0.9-4.3 [facility] Comment on above: Performed By: #### C BC, ADIFF, ANEU, SHAYY, LAC #### [address] [address] Lymphocytes/100 WBC (Bld) 7.2 % Low 20.0-40.0 [facility] Comment on above: Performed By: #### C BC, ADIFF, ANEU, SHAYY, LAC #### [address] [address] Monocyte, Absolute 1.4 10 3/mcL Normal 0.1-1.4 [facility] Comment on above: Performed By: #### C BC, ADIFF, ANEU, SHAYY, LAC #### [address] [address] Monocytes/100 WBC (Bld) 7.4 % Normal 2.0-13.0 [facility] Comment on above: Performed By: #### C BC, ADIFF, ANEU, SHAYY, LAC #### [address] [address] Neutrophils/100 WBC (Bld) 85.2 % High 50.0-75.0 [facility] Comment on above: Performed By: #### C BC, ADIFF, ANEU, SHAYY, LAC #### [address] [address] Basophil, Absolute 0.0 10 3/mcL Normal 0.0-0.3 [facility] Comment on above: Performed By: #### C BC, ADIFF, ANEU, SHAYY, LAC #### [address] [address] Basophils/100 WBC (Bld) 0.1 % Normal 0.0-2.5 [facility] Comment on above: Performed By: #### C BC, ADIFF, ANEU, SHAYY, LAC #### [address] [address] Eosinophil, Absolute 0.0 10 3/mcL Normal 0.0-0.7 [facility] Comment on above: Performed By: #### C BC, ADIFF, ANEU, SHAYY, LAC #### [address] [address] Eosinophils/100 WBC (Bld) 0.1 % Normal 0.0-6.0 [facility] Comment on above: Performed By: #### C BC, ADIFF, ANEU, SHAYY, LAC #### [address] [address] Lymphocyte, Absolute 0.8 10 3/mcL Low 0.9-4.3 [facility] Comment on above: Performed By: #### C BC, ADIFF, ANEU, SHAYY, LAC #### [address] [address] Lymphocytes/100 WBC (Bld) 4.2 % Low 20.0-40.0 [facility] Comment on above: Performed By: #### C BC, ADIFF, ANEU, SHAYY, LAC #### [address] [address] Monocyte, Absolute 1.1 10 3/mcL Normal 0.1-1.4 [facility] Comment on above: Performed By: #### C BC, ADIFF, ANEU, SHAYY, LAC #### [address] [address] Monocytes/100 WBC (Bld) 5.6 % Normal 2.0-13.0 [facility] Comment on above: Performed By: #### C BC, ADIFF, ANEU, SHAYY, LAC #### [address] [address] Neutrophils/100 WBC (Bld) 90.0 % High 50.0-75.0 [facility] Comment on above: Performed By: #### C BC, ADIFF, ANEU, SHAYY, LAC #### [address] [address] .GFRon 06-15-2024 GFR/1.73 sq M.predicted among non-blacks MDRD (S/P/Bld) [Vol rate/Area] mL/min/{1.73_m2} Normal [facility] Comment on above: Result Comment: Stages of Chronic Kidney Disease (CKD) Stage Description eGFR(ml/min/1.73 sq.m.) CKD 1 Normal kidney function or >=90 normal kindney function with possible kidney damage (ex. Proteinuria) CKD 2 Kidney damage with mild loss 60-89 of kidney function CKD 3a Mild to moderate loss of kidney 45-59 function CKD 3b Moderate to severe loss of 30-44 of kindey function CKD 4 Severe loss of kidney function 15-29 CKD 5 Kidney failure <15 Note: (go live 2024) the eGFR calculation was updated to the 2020 CKD-EPI creatinine equation without a race factor to calculate the eGFR results. Performed By: #### C BC, ADIFF, ANEU, SHAYY, LAC #### [place] [address] .MDWon 06-15-2024 Monocyte Distribution Width 26.68 High 0.00-20.00 [facility] Comment on above: Result Comment: For adults in ED, MDW>20.0 may be associated with a higher risk of sepsis during the first 12hrs of hospital admission Performed By: #### C BC, ADIFF, ANEU, SHAYY, LAC #### [place] [address] .NEUABSon 06-15-2024 Neutrophil, Absolute 15.7 10 3/mcL High 2.3-8.1 [facility] Comment on above: Performed By: #### C BC, ADIFF, ANEU, SHAYY, LAC #### [place] [address] Neutrophil, Absolute 17.4 10 3/mcL High 2.3-8.1 [facility] Comment on above: Performed By: #### C BC, ADIFF, ANEU, SHAYY, LAC #### [place] [address] AMYon 06-15-2024 Amylase [Catalytic activity/Vol] 14 U/L Low 25-115 [facility] Comment on above: Performed By: #### C BC, ADIFF, ANEU, SHAYY, LAC #### [place] [address] BMPon 06-15-2024 BUN/Creatinine Ratio 11 ratio Normal 7-27 [facility] Comment on above: Performed By: #### C BC, ADIFF, ANEU, SHAYY, LAC #### [address] [address] Calcium [Mass/Vol] 8.7 mg/dL Normal 8.4-10.2 [facility] Comment on above: Performed By: #### C BC, ADIFF, ANEU, SHAYY, LAC #### [place] [address] Chloride [Moles/Vol] 100 mmol/L Normal 98-107 [facility] Comment on above: Performed By: #### C BC, ADIFF, ANEU, SHAYY, LAC #### [place] [address] CO2 [Moles/Vol] 23 mmol/L Normal 22-29 [facility] Comment on above: Performed By: #### C BC, ADIFF, ANEU, SHAYY, LAC #### [address] [address] Creatinine [Mass/Vol] 0.47 mg/dL Low 0.51-0.95 [facility] Comment on above: Performed By: #### C BC, ADIFF, ANEU, SHAYY, LAC #### [address] [address] Electrolyte Balance 12.0 mEq/L Normal 4.0-15.0 [facility] Comment on above: Performed By: #### C BC, ADIFF, ANEU, SHAYY, LAC #### [address] [address] Glucose [Mass/Vol] 107 mg/dL High 70-105 [facility] Comment on above: Performed By: #### C BC, ADIFF, ANEU, SHAYY, LAC #### [address] [address] Potassium [Moles/Vol] 3.4 mmol/L Low 3.5-5.1 [facility] Comment on above: Performed By: #### C BC, ADIFF, ANEU, SHAYY, LAC #### [place] [address] Sodium [Moles/Vol] 135 mmol/L Low 136-145 [facility] Comment on above: Performed By: #### C BC, ADIFF, ANEU, SHAYY, LAC #### [place] [address] Urea nitrogen [Mass/Vol] 5 mg/dL Low 7-18 [facility] Comment on above: Performed By: #### C BC, ADIFF, ANEU, SHAYY, LAC #### [place] [address] CBCon 06-15-2024 Erythrocyte distribution width (RBC) [Ratio] 13.0 % Normal 11.5-15.5 [facility] Comment on above: Performed By: #### C BC, ADIFF, ANEU, SHAYY, LAC #### [place] [address] Hematocrit (Bld) [Volume fraction] 35.1 % Normal 34.0-46.0 [facility] Comment on above: Performed By: #### C BC, ADIFF, ANEU, SHAYY, LAC #### [place] [address] Hgb 11.9 G/dL Low 12.0-16.0 [facility] Comment on above: Performed By: #### C BC, ADIFF, ANEU, SHAYY, LAC #### [place] [address] MCH (RBC) [Entitic mass] 29.8 pg Normal 27.0-33.0 [facility] Comment on above: Performed By: #### C BC, ADIFF, ANEU, SHAYY, LAC #### [place] [address] MCHC 33.9 G/dL Normal 32.0-36.0 [facility] Comment on above: Performed By: #### C BC, ADIFF, ANEU, SHAYY, LAC #### [place] [address] MCV (RBC) [Entitic vol] 87.8 fL Normal 80.0-99.0 [facility] Comment on above: Performed By: #### C BC, ADIFF, ANEU, SHAYY, LAC #### [address] [address] Platelet 198 10 3/mcL Normal 150-450 [facility] Comment on above: Performed By: #### C BC, ADIFF, ANEU, SHAYY, LAC #### [place] [id number] Platelet mean volume (Bld) [Entitic vol] 7.0 fL Normal 6.6-10.5 [facility] Comment on above: Performed By: #### C BC, ADIFF, ANEU, SHAYY, LAC #### [place] [address] RBC 3.99 10 6/mcL Low 4.10-5.30 [facility] Comment on above: Performed By: #### C BC, ADIFF, ANEU, SHAYY, LAC #### [place] [address] WBC 18.4 10 3/mcL High 4.5-10.8 [facility] Comment on above: Performed By: #### C BC, ADIFF, ANEU, SHAYY, LAC #### [address] [address] Erythrocyte distribution width (RBC) [Ratio] 12.9 % Normal 11.5-15.5 [facility] Comment on above: Performed By: #### C BC, ADIFF, ANEU, SHAYY, LAC #### [place] [address] Hematocrit (Bld) [Volume fraction] 34.9 % Normal 34.0-46.0 [facility] Comment on above: Performed By: #### C BC, ADIFF, ANEU, SHAYY, LAC #### [place] [address] Hgb 12.1 G/dL Normal 12.0-16.0 [facility] Comment on above: Performed By: #### C BC, ADIFF, ANEU, SHAYY, LAC #### [place] [address] MCH (RBC) [Entitic mass] 30.1 pg Normal 27.0-33.0 [facility] Comment on above: Performed By: #### C BC, ADIFF, ANEU, SHAYY, LAC #### [place] [address] MCHC 34.6 G/dL Normal 32.0-36.0 [facility] Comment on above: Performed By: #### C BC, ADIFF, ANEU, SHAYY, LAC #### [place] [address] MCV (RBC) [Entitic vol] 87.1 fL Normal 80.0-99.0 [facility] Comment on above: Performed By: #### C BC, ADIFF, ANEU, SHAYY, LAC #### [place] [address] Platelet 199 10 3/mcL Normal 150-450 [facility] Comment on above: Performed By: #### C BC, ADIFF, ANEU, SHAYY, LAC #### [place] [address] Platelet mean volume (Bld) [Entitic vol] 7.2 fL Normal 6.6-10.5 [facility] Comment on above: Performed By: #### C BC, ADIFF, ANEU, SHAYY, LAC #### [place] [address] RBC 4.01 10 6/mcL Low 4.10-5.30 [facility] Comment on above: Performed By: #### C BC, ADIFF, ANEU, SHAYY, LAC #### [place] [address] WBC 19.3 10 3/mcL High 4.5-10.8 [facility] Comment on above: Performed By: #### C BC, ADIFF, ANEU, SHAYY, LAC #### [place] [id number] HFPon 06-15-2024 Bili Indirect 0.6 mg/dL Normal [facility] Comment on above: Performed By: #### C BC, ADIFF, ANEU, SHAYY, LAC #### [place] [address] Albumin Level 3.2 G/dL Low 3.5-5.0 [facility] Comment on above: Performed By: #### C BC, ADIFF, ANEU, SHAYY, LAC #### [place] [address] Albumin/Globulin [Mass ratio] 0.9 {ratio} Low 1.1-2.5 [facility] Comment on above: Performed By: #### C BC, ADIFF, ANEU, SHAYY, LAC #### [place] [address] ALP [Catalytic activity/Vol] 58 U/L Normal 40-135 [facility] Comment on above: Performed By: #### C BC, ADIFF, ANEU, SHAYY, LAC #### [place] [address] ALT [Catalytic activity/Vol] 21 U/L Normal 14-59 [facility] Comment on above: Performed By: #### C BC, ADIFF, ANEU, SHAYY, LAC #### [place] [address] AST [Catalytic activity/Vol] 16 U/L Normal 10-40 [facility] Comment on above: Performed By: #### C BC, ADIFF, ANEU, SHAYY, LAC #### [place] [address] Bili Direct 0.3 mg/dL High 0.0-0.2 [facility] Comment on above: Result Comment: Use of this assay is not recommended for patients undergoing treatment with eltrombopag due to the potential for falsely elevated results. Performed By: #### C BC, ADIFF, ANEU, SHAYY, LAC #### [place] [address] Bili Total 0.9 mg/dL Normal 0.2-1.0 [facility] Comment on above: Result Comment: Use of this assay is not recommended for patients undergoing treatment with eltrombopag due to the potential for falsely elevated results. Performed By: #### C BC, ADIFF, ANEU, SHAYY, LAC #### [facility] [address] [place], [place] [address] Globulin 3.5 G/dL Normal 2.7-4.4 [facility] Comment on above: Performed By: #### C BC, ADIFF, ANEU, SHAYY, LAC #### [place] [address] [place], [place] [address] Total Protein 6.7 G/dL Normal 6.4-8.2 [facility] Comment on above: Performed By: #### C BC, ADIFF, ANEU, SHAYY, LAC #### [place] [id number] [place], [place] [address] LABORATORYOrdered By: Fina Renee on 06-15-2024 C. trachomatis DNA LISA+probe Ql (Unsp spec) Negative 14 (06/15/24 11:48 PM) Normal Negative Auto Viro/Sero SS Comment on above: Interpretive Data: M olecular (PCR) assay performed on the [employer] system. C. trachomatis DNA LISA+probe Ql (Unsp spec) C. trachomatis DNA not detected. Specimen is presumptive negative for C. trachomatis. A negative result does not preclude C. trachomatis infection because results depend on adequate specimen collection, absence of inhibitors, and sufficient DNA to be detected. Normal See CT Interp N AH Auto Viro/Sero SS N. gonorrhoeae DNA LISA+probe Ql (Unsp spec) Negative 13 (06/15/24 11:48 PM) Normal Negative AH Auto Viro/Sero SS Comment on above: Interpretive Data: M olecular (PCR) assay performed on the [employer] System. N. gonorrhoeae DNA LISA+probe Ql (Unsp spec) N. gonorrhoeae DNA not detected. Specimen is presumptive negative for N. gonorrhoeae. A negative result does not preclude Neisseria gonorrhoeae infection because results depend on adequate specimen collection, absence of inhibitors, and sufficient DNA to be detected. Normal See NG Interp N AH Auto Viro/Sero SS LABORATORYOrdered By: SYSTEM SYSTEM on 06-15-2024 Amylase [Catalytic activity/Vol] 14 U/L Low 25 - 115 U/L AO ADM SS Basophils (Bld) [#/Vol] 0.0 103/mcL Normal 0.0 - 0.3 10^3/mcL AO Workflow SS Basophils/100 WBC (Bld) 0.2 % Normal 0.0 - 2.5 % AO Workflow SS Eosinophil, Absolute 0.0 103/mcL Normal 0.0 - 0 .7 10^3/mcL AO Workflow SS Eosinophils/100 WBC (Bld) 0.0 % Normal 0.0 - 6.0 % AO Workflow SS Erythrocyte distribution width (RBC) [Ratio] 13.0 % Normal 11.5 - 15.5 % AO Workflow SS Hematocrit (Bld) [Volume fraction] 35.1 % Normal 34.0 - 46.0 % AO Workflow SS Hemoglobin (Bld) [Mass/Vol] 11.9 G/dL Low 12.0 - 16.0 G/dL AO Workflow SS Lactate [Moles/Vol] 1.0 mmol/L Normal 0.4 - 2. 0 mmol/L AO ADM SS Lymphocytes (Bld) [#/Vol] 1.3 103/mcL Normal 0.9 - 4.3 10^3/mcL AO Workflow SS Lymphocytes/100 WBC (Bld) 7.2 % Low 20.0 - 40.0 % AO Workflow SS MCH (RBC) [Entitic mass] 29.8 pg Normal 27.0 - 33.0 pg AO Workflow SS MCHC 33.9 G/dL Normal 32.0 - 36.0 G/dL AO Workflow SS MCV (RBC) [Entitic vol] 87.8 fL Normal 80.0 - 99.0 fL AO Workflow SS Monocytes (Bld) [#/Vol] 1.4 103/mcL Normal 0.1 - 1.4 10^3/mcL AO Workflow SS Monocytes/100 WBC (Bld) 7.4 % Normal 2.0 - 13.0 % AO Workflow SS Neutrophils (Bld) [#/Vol] 15.7 103/mcL High 2.3 - 8.1 10^3/mcL AO Workflow SS Neutrophils/100 WBC (Bld) 85.2 % High 50.0 - 75.0 % AO Workflow SS Platelet mean volume (Bld) [Entitic vol] 7.0 fL Normal 6.6 - 10.5 fL AO Workflow SS Platelets (Bld) [#/Vol] 198 103/mcL Normal 150 - 450 10^3/mcL AO Workflow SS RBC (Bld) [#/Vol] 3.99 106/mcL Low 4.10 - 5.3 0 10^6/mcL AO Workflow SS WBC (Bld) [#/Vol] 18.4 103/mcL High 4.5 - 10.8 10^3/mcL AO Workflow SS Albumin BCP dye [Mass/Vol] 3.2 G/dL Low 3.5 - 5.0 G/dL AO ADM SS Albumin/Globulin [Mass ratio] 0.9 {ratio} Low 1.1 - 2.5 ratio AO ADM SS ALP [Catalytic activity/Vol] 58 U/L Normal 40 - 135 U/L AO ADM SS ALT With P-5'-P [Catalytic activity/Vol] 21 U/L Normal 14 - 59 U/L AO ADM SS AST With P-5'-P [Catalytic activity/Vol] 16 U/L Normal 10 - 40 U/L AO ADM SS Bilirubin [Mass/Vol] 0.9 mg/dL Normal 0.2 - 1 .0 mg/dL AO ADM SS Comment on above: Interpretive Data: U se of this assay is not recommended for patients undergoing treatment with eltrombopag due to the potential for falsely elevated results. Bilirubin.direct [Mass/Vol] 0.3 mg/dL High 0.0 - 0.2 mg/dL AO ADM SS Comment on above: Interpretive Data: U se of this assay is not recommended for patients undergoing treatment with eltrombopag due to the potential for falsely elevated results. Bilirubin.direct [Mass/Vol] 0.6 mg/dL Invalid Interpretation Code AO Chemistry S Globulin 3.5 G/dL Normal 2.7 - 4.4 G/dL AO ADM SS INR Coag (PPP) [Relative time] 1.4 {INR} Invalid Interpretation Code AO HemoHub SS Comment on above: Interpretive Data: Josefina murdock [employer] (CHEST, 1991, 102:312S-25S) recommended therapeutic range for oral anticoagulant therapy is: LOW RISK: Prophylaxis of venous thrombosis INR: 2.0-3.0 Treatment of pulmonary embolism 2.0-3.0 Prevention of systemic embolism 2.0-3.0 HIGH RISK: Mechanical prosthetic valves 2.5-3.5 Protein [Mass/Vol] 6.7 G/dL Normal 6.4 - 8.2 G/dL AO ADM SS PT Coag (PPP) [Time] 16.1 s High 9.0 - 1 4.4 seconds AO HemoHub SS Basophils (Bld) [#/Vol] 0.0 103/mcL Normal 0.0 - 0.3 10^3/mcL AO Workflow SS Basophils/100 WBC (Bld) 0.1 % Normal 0.0 - 2.5 % AO Workflow SS Calcium [Mass/Vol] 8.7 mg/dL Normal 8.4 - 10. 2 mg/dL AO ADM SS Chloride [Moles/Vol] 100 mmol/L Normal 98 - 10 7 mmol/L AO ADM SS CO2 [Moles/Vol] 23 mmol/L Normal 22 - 29 mmol/L AO ADM SS Creatinine [Mass/Vol] 0.47 mg/dL Low 0.51 - 0.95 mg/dL AO ADM SS Electrolyte Balance 12.0 mEq/L Normal 4.0 - 15 .0 mEq/L AO ADM SS Eosinophil, Absolute 0.0 103/mcL Normal 0.0 - 0 .7 10^3/mcL AO Workflow SS Eosinophils/100 WBC (Bld) 0.1 % Normal 0.0 - 6.0 % AO Workflow SS Erythrocyte distribution width (RBC) [Ratio] 12.9 % Normal 11.5 - 15.5 % AO Workflow SS Estimated Glomerular Filtration Rate ml/min/1.73sqm Invalid Interpretation Code AO Chemistry S Comment on above: Interpretive Data: Stages of Chronic Kidney Disease (CKD) Stage Description eGFR(ml/min/1.73 sq.m.) CKD 1 Normal kidney function or >=90 normal kindney function with possible kidney damage (ex. Proteinuria) CKD 2 Kidney damage with mild loss 60-89 of kidney function CKD 3a Mild to moderate loss of kidney 45-59 function CKD 3b Moderate to severe loss of 30-44 of kindey function CKD 4 Severe loss of kidney function 15-29 CKD 5 Kidney failure <15 Note: (go live 2024) the eGFR calculation was updated to the 2020 CKD-EPI creatinine equation without a race factor to calculate the eGFR results. Glucose [Mass/Vol] 107 mg/dL High 70 - 105 mg/dL AO ADM SS Hematocrit (Bld) [Volume fraction] 34.9 % Normal 34.0 - 46.0 % AO Workflow SS Hemoglobin (Bld) [Mass/Vol] 12.1 G/dL Normal 12.0 - 16.0 G/dL AO Workflow SS Lipase [Catalytic activity/Vol] 13 U/L Low 16 - 77 U/L AO ADM SS Lymphocytes (Bld) [#/Vol] 0.8 103/mcL Low 0.9 - 4.3 10^3/mcL AO Workflow SS Lymphocytes/100 WBC (Bld) 4.2 % Low 20.0 - 40.0 % AO Workflow SS MCH (RBC) [Entitic mass] 30.1 pg Normal 27.0 - 33.0 pg AO Workflow SS MCHC 34.6 G/dL Normal 32.0 - 36.0 G/dL AO Workflow SS MCV (RBC) [Entitic vol] 87.1 fL Normal 80.0 - 99.0 fL AO Workflow SS Monocyte distribution width Auto (Bld) [Entitic vol] 26.68 1 High 0.00 - 20.00 AO Workflow SS Comment on above: Result Comment: For adults in ED, MDW>20.0 may be associated with a higher risk of sepsis during the first 12hrs of hospital admission Monocytes (Bld) [#/Vol] 1.1 103/mcL Normal 0.1 - 1.4 10^3/mcL AO Workflow SS Monocytes/100 WBC (Bld) 5.6 % Normal 2.0 - 13.0 % AO Workflow SS Neutrophils (Bld) [#/Vol] 17.4 103/mcL High 2.3 - 8.1 10^3/mcL AO Workflow SS Neutrophils/100 WBC (Bld) 90.0 % High 50.0 - 75.0 % AO Workflow SS Platelet mean volume (Bld) [Entitic vol] 7.2 fL Normal 6.6 - 10.5 fL AO Workflow SS Platelets (Bld) [#/Vol] 199 103/mcL Normal 150 - 450 10^3/mcL AO Workflow SS Potassium [Moles/Vol] 3.4 mmol/L Low 3.5 - 5.1 mmol/L AO ADM SS RBC (Bld) [#/Vol] 4.01 106/mcL Low 4.10 - 5.3 0 10^6/mcL AO Workflow SS Sodium [Moles/Vol] 135 mmol/L Low 136 - 145 mmol/L AO ADM SS Urea nitrogen [Mass/Vol] 5 mg/dL Low 7 - 18 mg/dL AO ADM SS Urea nitrogen/Creatinine [Mass ratio] 11 ratio Normal 7 - 27 ratio AO ADM SS WBC (Bld) [#/Vol] 19.3 103/mcL High 4.5 - 10.8 10^3/mcL AO Workflow SS LABORATORYOrdered By: Jourdan Donovan on 06-15-2024 Appearance (U) Clear (06/15/24 10:59 AM) Normal Clear AO Auto Urine SS Bilirubin Ql (U) Negative (06/15/24 10:59 AM) Normal Negative AO Auto Urine SS Color (U) Yellow (06/15/24 10:59 AM) Normal AO Auto Urine SS Glucose Test strip (U) [Mass/Vol] Negative Normal Negative AO Auto Urine SS Hemoglobin Auto test strip (U) [Mass/Vol] Negative (06/15/24 10:59 AM) Normal Negative AO Auto Urine SS Ketones Ql (U) >=160 mg/dL Invalid Interpretation Code Negative AO Auto Urine SS UA Leuk Est Negative (06/15/24 10:59 AM) Normal Negative AO Auto Urine SS UA Nitrite Negative (06/15/24 10:59 AM) Normal Negative AO Auto Urine SS UA pH 6.0 (06/15/24 10:59 AM) Normal 5.0 - 8.0 AO Auto Urine SS UA Protein Trace mg/dL Normal Negative AO Auto Urine SS UA Spec Grav >=1.030 *ABN* (06/15/24 10:59 AM) Invalid Interpretation Code 1.015-1.025 AO Auto Urine SS UA Specimen Type Clean Catch (06/15/24 10:59 AM) Normal AO Auto Urine SS UA Urobilinogen 1.0 E.U./dL Normal 0.2-1.0 AO Auto Urine SS LACon 06-15-2024 Lactic Acid Lvl 1.0 mmol/L Normal 0.4-2.0 [facility] Comment on above: Performed By: #### C BC, ADIFF, ANEU, SHAYY, LAC #### [address] [address] LIPon 06-15-2024 Lipase Level 13 U/L Low 16-77 [facility] Comment on above: Performed By: #### C BC, FARTUN ANEU, SHAYY, LAC #### [address] [address] Laboratory - Specimen inform ationOrdered By: Fina Renee on 06-15-2024 Specimen source Nom (Unsp spec) Cervix (06/15/24 11:48 PM) Normal AH Auto Viro/Sero SS PROon 06-15-2024 PT Coag (PPP) [Time] 16.1 s High 9.0-14.4 [facility] Comment on above: Performed By: #### P RO #### [place] [id number] PT International Ratio 1.4 Normal [facility] Comment on above: Result Comment: [employer] (CHEST, 1992, 102:312S-25S) recommended therapeutic range for oral anticoagulant therapy is: LOW RISK: Prophylaxis of venous thrombosis INR: 2.0-3.0 Treatment of pulmonary embolism 2.0-3.0 Prevention of systemic embolism 2.0-3.0 HIGH RISK: Mechanical prosthetic valves 2.5-3.5 Performed By: #### P RO #### [address] [address] UAon 06-15-2024 Color (U) Yellow Normal [facility] Comment on above: Performed By: #### C BC, FARTUN, ANEU, SHAYY, LAC #### [address] [address] Glucose (U) [Mass/Vol] Negative Normal Negative [facility] Comment on above: Performed By: #### C BC, FARTUN, ANEU, SHAYY, LAC #### [address] [address] Ketones Ql (U) >=160 Abnormal Negative [facility] Comment on above: Performed By: #### C BC, ADIFF, ANEU, SHAYY, LAC #### [address] [address] UA Appear Clear Normal Clear [facility] Comment on above: Performed By: #### C BC, ADIFF, ANEU, SHAYY, LAC #### [address] [address] UA Blood Negative Normal Negative [facility] Comment on above: Performed By: #### C BC, ADIFF, ANEU, SHAYY, LAC #### [address] [address] UA Leuk Est Negative Normal Negative [facility] Comment on above: Performed By: #### C BC, ADIFF, ANEU, SHAYY, LAC #### [address] [address] UA Nitrite Negative Normal Negative [facility] Comment on above: Performed By: #### C BC, ADIFF, ANEU, SHAYY, LAC #### [place] [address] UA pH 6.0 Normal 5.0 - 8.0 [facility] Comment on above: Performed By: #### C BC, ADIFF, ANEU, SHAYY, LAC #### [place] [address] UA Protein Trace Normal Negative [facility] Comment on above: Performed By: #### C BC, ADIFF, ANEU, SHAYY, LAC #### [address] [address] UA Spec Grav >=1.030 Abnormal 1.015-1.025 [facility] Comment on above: Performed By: #### C BC, ADIFF, ANEU, SHAYY, LAC #### [place] [address] UA Specimen Type Clean Catch Normal [facility] Comment on above: Performed By: #### C BC, ADIFF, ANEU, SHAYY, LAC #### [place] [address] UA Urobilinogen 1.0 E.U./dL Normal 0.2-1.0 [facility] Comment on above: Performed By: #### C BC, ADIFF, ANEU, SHAYY, LAC #### [address] [address] Urobilinogen (U) [Mass/Vol] Negative Normal Negative [facility] Comment on above: Performed By: #### C FARTUN GONGORA ANEU, SHAYY, LAC #### [address] [address] Urine Cultureon 06-15-2024 [facility]RC Presumptive E. coli Craig Count 50,000-80,000 Presumptive E. coli: REACTION Ampicillin Islt LISA <=2 Ampicillin+Sulbac Islt LISA <=2 S Cefepime Islt LISA <=0.12 S cefTRIAXone Islt LISA <=0.25 S Ciprofloxacin Islt LISA <=0.06 S B-Lactamase Extended Susc Islt NEG Gentamicin Islt LISA <=1 S levoFLOXacin Islt LISA <=0.12 S Meropenem Islt LISA <=0.25 S Nitrofurantoin Islt LISA <=16 S Pip+Tazo Islt LISA <=4 S TMP SMX Islt LISA <=20 S Normal [facility] Comment on above: Performed By: #### L 400.0001, M100.2200 #### [facility] [address] [place], [place], [address] .Auto Diffon 06-13-2024 Basophil, Absolute 0.0 10 3/mcL Normal 0.0-0.3 [facility] Comment on above: Performed By: #### C FARTUN GONGORA ANEU, SHAYY, LAC #### [address] [address] Basophils/100 WBC (Bld) 0.1 % Normal 0.0-2.5 [facility] Comment on above: Performed By: #### C FARTUN GONGORA ANEU, SHAYY, LAC #### [address] [address] Eosinophil, Absolute 0.0 10 3/mcL Normal 0.0-0.7 [facility] Comment on above: Performed By: #### C FRANSISCA, FARTUN, ANEU, SHAYY, LAC #### [address] [place] [address] Eosinophils/100 WBC (Bld) 0.0 % Normal 0.0-6.0 [facility] Comment on above: Performed By: #### C BC, ADIFF, ANEU, SHAYY, LAC #### [address] [address] Lymphocyte, Absolute 1.2 10 3/mcL Normal 0.9-4.3 [facility] Comment on above: Performed By: #### C BC, ADIFF, ANEU, SHAYY, LAC #### [address] [address] Lymphocytes/100 WBC (Bld) 6.6 % Low 20.0-40.0 [facility] Comment on above: Performed By: #### C BC, ADIFF, ANEU, SHAYY, LAC #### [address] [address] Monocyte, Absolute 0.4 10 3/mcL Normal 0.1-1.4 [facility] Comment on above: Performed By: #### C BC, ADIFF, ANEU, SHAYY, LAC #### [address] [address] Monocytes/100 WBC (Bld) 2.0 % Normal 2.0-13.0 [facility] Comment on above: Performed By: #### C BC, ADIFF, ANEU, SHAYY, LAC #### [address] [address] Neutrophils/100 WBC (Bld) 91.3 % High 50.0-75.0 [facility] Comment on above: Performed By: #### C BC, ADIFF, ANEU, SHAYY, LAC #### [address] [address] .GFRon 06-13-2024 GFR/1.73 sq M.predicted among non-blacks MDRD (S/P/Bld) [Vol rate/Area] mL/min/{1.73_m2} Normal [facility] Comment on above: Result Comment: Stages of Chronic Kidney Disease (CKD) Stage Description eGFR(ml/min/1.73 sq.m.) CKD 1 Normal kidney function or >=90 normal kindney function with possible kidney damage (ex. Proteinuria) CKD 2 Kidney damage with mild loss 60-89 of kidney function CKD 3a Mild to moderate loss of kidney 45-59 function CKD 3b Moderate to severe loss of 30-44 of kindey function CKD 4 Severe loss of kidney function 15-29 CKD 5 Kidney failure <15 Note: (go live 2024) the eGFR calculation was updated to the 2020 CKD-EPI creatinine equation without a race factor to calculate the eGFR results. Performed By: #### C BC, ADIFF, ANEU, SHAYY, LAC #### [place] [id number] .MDWon 06-13-2024 Monocyte Distribution Width 16.97 Normal 0.00-20.00 [facility] Comment on above: Result Comment: For ED adult patients suspected of sepsis, MDW<=20.0 does not rule out sepsis or risk of sepsis Performed By: #### C BC, ADIFF, ANEU, SHAYY, LAC #### [place] [id number] .NEUABSon 06-13-2024 Neutrophil, Absolute 16.4 10 3/mcL High 2.3-8.1 [facility] Comment on above: Performed By: #### C BC, ADIFF, ANEU, SHAYY, LAC #### [place] [address] CBCon 06-13-2024 Erythrocyte distribution width (RBC) [Ratio] 12.6 % Normal 11.5-15.5 [facility] Comment on above: Performed By: #### C BC, ADIFF, ANEU, SHAYY, LAC #### [place] [address] Hematocrit (Bld) [Volume fraction] 37.8 % Normal 34.0-46.0 [facility] Comment on above: Performed By: #### C BC, ADIFF, ANEU, SHAYY, LAC #### [place] [address] Hgb 13.1 G/dL Normal 12.0-16.0 [facility] Comment on above: Performed By: #### C BC, ADIFF, ANEU, SHAYY, LAC #### [place] [address] MCH (RBC) [Entitic mass] 30.3 pg Normal 27.0-33.0 [facility] Comment on above: Performed By: #### C BC, ADIFF, ANEU, SHAYY, LAC #### [place] [address] MCHC 34.6 G/dL Normal 32.0-36.0 [facility] Comment on above: Performed By: #### C BC, ADIFF, ANEU, SHAYY, LAC #### [place] [address] MCV (RBC) [Entitic vol] 87.6 fL Normal 80.0-99.0 [facility] Comment on above: Performed By: #### C BC, ADIFF, ANEU, SHAYY, LAC #### [place] [address] Platelet 246 10 3/mcL Normal 150-450 [facility] Comment on above: Performed By: #### C BC, ADIFF, ANEU, SHAYY, LAC #### [place] [address] Platelet mean volume (Bld) [Entitic vol] 7.0 fL Normal 6.6-10.5 [facility] Comment on above: Performed By: #### C BC, ADIFF, ANEU, SHAYY, LAC #### [place] [address] RBC 4.32 10 6/mcL Normal 4.10-5.30 [facility] Comment on above: Performed By: #### C BC, ADIFF, ANEU, SHAYY, LAC #### [place] [id number] WBC 18.0 10 3/mcL High 4.5-10.8 [facility] Comment on above: Performed By: #### C BC, ADIFF, ANEU, SHAYY, LAC #### [address] [address] CMPon 06-13-2024 Albumin Level 4.0 G/dL Normal 3.5-5.0 [facility] Comment on above: Performed By: #### C BC, ADIFF, ANEU, SHAYY, LAC #### [address] [id number] Albumin/Globulin [Mass ratio] 1.1 {ratio} Normal 1.1-2.5 [facility] Comment on above: Performed By: #### C BC, ADIFF, ANEU, SHAYY, LAC #### [place] [id number] ALP [Catalytic activity/Vol] 67 U/L Normal 40-135 [facility] Comment on above: Performed By: #### C BC, ADIFF, ANEU, SHAYY, LAC #### [place] [id number] ALT [Catalytic activity/Vol] 20 U/L Normal 14-59 [facility] Comment on above: Performed By: #### C BC, ADIFF, ANEU, SHAYY, LAC #### [place] [id number] AST [Catalytic activity/Vol] 32 U/L Normal 10-40 [facility] Comment on above: Performed By: #### C BC, ADIFF, ANEU, SHAYY, LAC #### [place] [id number] Bili Total 0.5 mg/dL Normal 0.2-1.0 [facility] Comment on above: Result Comment: Use of this assay is not recommended for patients undergoing treatment with eltrombopag due to the potential for falsely elevated results. Performed By: #### C BC, ADIFF, ANEU, SHAYY, LAC #### [place] [id number] BUN/Creatinine Ratio 11 ratio Normal 7-27 [facility] Comment on above: Performed By: #### C BC, ADIFF, ANEU, SHAYY, LAC #### [place] [id number] Calcium [Mass/Vol] 9.8 mg/dL Normal 8.4-10.2 [facility] Comment on above: Performed By: #### C BC, ADIFF, ANEU, SHAYY, LAC #### [address] [address] Chloride [Moles/Vol] 103 mmol/L Normal 98-107 [facility] Comment on above: Performed By: #### C BC, ADIFF, ANEU, SHAYY, LAC #### [place] [address] CO2 [Moles/Vol] 24 mmol/L Normal 22-29 [facility] Comment on above: Performed By: #### C BC, ADIFF, ANEU, SHAYY, LAC #### [address] [address] Creatinine [Mass/Vol] 0.46 mg/dL Low 0.51-0.95 [facility] Comment on above: Performed By: #### C BC, ADIFF, ANEU, SHAYY, LAC #### [address] [address] Electrolyte Balance 12.0 mEq/L Normal 4.0-15.0 [facility] Comment on above: Performed By: #### C BC, ADIFF, ANEU, SHAYY, LAC #### [address] [address] Globulin 3.7 G/dL Normal 2.7-4.4 [facility] Comment on above: Performed By: #### C BC, ADIFF, ANEU, SHAYY, LAC #### [address] [address] Glucose [Mass/Vol] 102 mg/dL Normal 70-105 [facility] Comment on above: Performed By: #### C BC, ADIFF, ANEU, SHAYY, LAC #### [address] [address] Potassium [Moles/Vol] 3.8 mmol/L Normal 3.5-5.1 [facility] Comment on above: Performed By: #### C BC, ADIFF, ANEU, SHAYY, LAC #### [place] [address] [place], [place] [address] Sodium [Moles/Vol] 139 mmol/L Normal 136-145 [facility] Comment on above: Performed By: #### C BC, ADIFF, ANEU, SHAYY, LAC #### [address] [address] Total Protein 7.7 G/dL Normal 6.4-8.2 [facility] Comment on above: Performed By: #### C BC, ADIFF, ANEU, SHAYY, LAC #### [address] [address] Urea nitrogen [Mass/Vol] 5 mg/dL Low 7-18 [facility] Comment on above: Performed By: #### C BC, ADIFF, ANEU, SHAYY, LAC #### [address] [address] Emergency Department Summary on 06-13-2024 Emergency Department Summary [facility] Medical Records Department [address] [place] [address] Emergency Department Summary 06/13/24 MR#: [id number] Acct: [id number] Name: KIM MORENO Rep #: [id number] : 2005 19 From: Robles Cagle MD PCP: Dr. Vashti Mclean, DO Status:REG ER Location: ED HPI History of Present Illness Chief Complaint: Abd Pain Informant: patient Narrative Narrative: 19-year-old female is 18 weeks , since yesterday she has felt lightheaded some nausea and just generally feeling poorly. Some subjective chills. Some suprapubic discomfort and an increase in the low back discomfort that she has had for a little while. She has had urinary frequency while , that is no different than usual yesterday and today. No dysuria. No hematuria. No syncope, no vertiginous symptoms or focal neurologic symptoms, no cough or dyspnea. [facility] Medical History ADH disorder Asthma Home Medications ???Medication ???Instructions ???Recorded ???Last Taken ???Type albuterol sulfate 90 mcg/actuation 1 - 2 puff inhalation Q4H PRN IA N 06/30/19 Unknown History aerosol inhaler Sob /Or Wheezing atomoxetine 40 mg capsule 40 mg PO DAILY 11/28/21 Unknown Hi story etonogestrel 68 mg subdermal See Rx Instructions .Route .COMPLE X 11/28/21 Unknown History implant (Nexplanon) ketoconazole 2 % shampoo 1 applic topical DAILY 11/28/21 Un known History metoclopramide HCl 10 mg tablet 10 mg PO Q6H PRN Headache #15 tabs 11/28/21 Unknown Rx sulfacetamide sodium (acne) 10 % 1 applic topical BID 11/28/21 Unkn own History lotion (suspension) nitrofurantoin 100 mg PO Q12 #14 CAPSULES 5 Unknown Rx monohydrate/macrocrys tals 100 mg capsule Allergy/AdvReac Type Severity Reaction Status Date / Time camphor (From Vicks Vaporub) Allergy Other Verified 06/13/24 16:07 eucalyptus (From Vicks Allergy Other Verified 06/13/24 16:07 Vaporub) menthol (From Vicks Vaporub) Allergy Other Verified 06/13/24 16:07 petrolatum,white (From Vicks Allergy Other Verified 06/13/24 16:07 Vaporub) turpentine oil (From Vicks Allergy Other Verified 06/13/24 16:07 Vaporub) Surgical History H/O eye surgery Social History Smoking Status: Never smoker ROS ROS ED Constitutional Constitutional ED: Reports chills; Denies fever(s) Eyes Eyes: Denies change in vision or diplopia ENT ENT ED: Denies rhinorrhea or sore throat Cardiovascular Cardiovascular: Reports lightheadedness; Denies chest pain, palpitations or syncope Respiratory/Chest Respiratory/Chest: Denies cough or dyspnea Gastrointestinal Gastrointestinal: Reports abdominal pain; Denies diarrhea, nausea or vomiting Genitourinary Genitourinary ED: Reports urinary frequency; Denies dysuria or hematuria Musculoskeletal Musculoskeletal: Reports back pain; Denies neck pain Integumentary Denies abscess or rash Neurologic Neurologic: Denies headache(s), paresthesias or weakness Psychiatric Psychiatric: Denies anxiety or suicidal thoughts EXAM Physical Exam Const Vital Signs: 06/13/24 16:07 06/13/24 16:44 06/13/24 18:06 Temperature 97.1 F L Temperature Source Temporal Pulse Rate 102 H 100 Respiratory Rate 19 H 16 Respiratory Effort Normal Respiratory Pattern Normal Blood Pressure 124/65 H 128/75 H Blood Pressure Mean 84 92 Pulse Ox 96 99 Oxygen Delivery Method Room Air Positive well nourished and well developed General Appearance ED: well developed and NAD HEENT Reports moist mucous membranes normocephalic and atraumatic Eyes PERRL and EOMs intact bilaterally Neck full ROM and supple Resp normal respiratory effort and clear to auscultation bilaterally Cardio regular rate, regular rhythm and no murmurs GI GI Narrative: Mild suprapubic tenderness no guarding or rebound. Abdomen distended to about the umbilicus consistent with second trimester around 18 weeks. Otherwise benign abdomen. Auscultation: normoactive bowel sounds Palpation: soft Back/Spine no CVA tenderness General Back: other FROM Extremity normal to inspection General Extremety ED: Negative for edema, pulses abnormal or tenderness General Extremity: Negative for edema or pulses abnormal Neuro oriented x3, CN's II-XII intact bilaterally, no sensory deficits noted and gait normal Sensorium / Orientation: awake and alert Motor Exam: strength 5/5 throughout Psych mental status grossly normal Skin no rashes or lesions noted and no wounds MDM MDM MDM Narrative Medical decision making narrative: Patient's vital signs look normal for her second tr (more content not included)... Normal [facility] LABORATORYOrdered By: SYSTEM SYSTEM on 06-13-2024 Albumin BCP dye [Mass/Vol] 4.0 G/dL Normal 3.5 - 5.0 G/dL AO ADM SS Albumin/Globulin [Mass ratio] 1.1 {ratio} Normal 1.1 - 2.5 ratio AO ADM SS ALP [Catalytic activity/Vol] 67 U/L Normal 40 - 135 U/L AO ADM SS ALT With P-5'-P [Catalytic activity/Vol] 20 U/L Normal 14 - 59 U/L AO ADM SS AST With P-5'-P [Catalytic activity/Vol] 32 U/L Normal 10 - 40 U/L AO ADM SS Basophils (Bld) [#/Vol] 0.0 103/mcL Normal 0.0 - 0.3 10^3/mcL AO Workflow SS Basophils/100 WBC (Bld) 0.1 % Normal 0.0 - 2.5 % AO Workflow SS Bilirubin [Mass/Vol] 0.5 mg/dL Normal 0.2 - 1 .0 mg/dL AO ADM SS Comment on above: Interpretive Data: U se of this assay is not recommended for patients undergoing treatment with eltrombopag due to the potential for falsely elevated results. Calcium [Mass/Vol] 9.8 mg/dL Normal 8.4 - 10. 2 mg/dL AO ADM SS Chloride [Moles/Vol] 103 mmol/L Normal 98 - 10 7 mmol/L AO ADM SS CO2 [Moles/Vol] 24 mmol/L Normal 22 - 29 mmol/L AO ADM SS Creatinine [Mass/Vol] 0.46 mg/dL Low 0.51 - 0.95 mg/dL AO ADM SS Electrolyte Balance 12.0 mEq/L Normal 4.0 - 15 .0 mEq/L AO ADM SS Eosinophil, Absolute 0.0 103/mcL Normal 0.0 - 0 .7 10^3/mcL AO Workflow SS Eosinophils/100 WBC (Bld) 0.0 % Normal 0.0 - 6.0 % AO Workflow SS Erythrocyte distribution width (RBC) [Ratio] 12.6 % Normal 11.5 - 15.5 % AO Workflow SS Estimated Glomerular Filtration Rate ml/min/1.73sqm Invalid Interpretation Code AO Chemistry S Comment on above: Interpretive Data: Stages of Chronic Kidney Disease (CKD) Stage Description eGFR(ml/min/1.73 sq.m.) CKD 1 Normal kidney function or >=90 normal kindney function with possible kidney damage (ex. Proteinuria) CKD 2 Kidney damage with mild loss 60-89 of kidney function CKD 3a Mild to moderate loss of kidney 45-59 function CKD 3b Moderate to severe loss of 30-44 of kindey function CKD 4 Severe loss of kidney function 15-29 CKD 5 Kidney failure <15 Note: (go live 2024) the eGFR calculation was updated to the 2020 CKD-EPI creatinine equation without a race factor to calculate the eGFR results. Globulin 3.7 G/dL Normal 2.7 - 4.4 G/dL AO ADM SS Glucose [Mass/Vol] 102 mg/dL Normal 70 - 105 mg/dL AO ADM SS Hematocrit (Bld) [Volume fraction] 37.8 % Normal 34.0 - 46.0 % AO Workflow SS Hemoglobin (Bld) [Mass/Vol] 13.1 G/dL Normal 12.0 - 16.0 G/dL AO Workflow SS Lipase [Catalytic activity/Vol] 18 U/L Normal 16 - 77 U/L AO ADM SS Lymphocytes (Bld) [#/Vol] 1.2 103/mcL Normal 0.9 - 4.3 10^3/mcL AO Workflow SS Lymphocytes/100 WBC (Bld) 6.6 % Low 20.0 - 40.0 % AO Workflow SS MCH (RBC) [Entitic mass] 30.3 pg Normal 27.0 - 33.0 pg AO Workflow SS MCHC 34.6 G/dL Normal 32.0 - 36.0 G/dL AO Workflow SS MCV (RBC) [Entitic vol] 87.6 fL Normal 80.0 - 99.0 fL AO Workflow SS Monocyte distribution width Auto (Bld) [Entitic vol] 16.97 1 Normal 0.00 - 20.00 AO Workflow SS Comment on above: Result Comment: For ED adult patients suspected of sepsis, MDW<=20.0 does not rule out sepsis or risk of sepsis Monocytes (Bld) [#/Vol] 0.4 103/mcL Normal 0.1 - 1.4 10^3/mcL AO Workflow SS Monocytes/100 WBC (Bld) 2.0 % Normal 2.0 - 13.0 % AO Workflow SS Neutrophils (Bld) [#/Vol] 16.4 103/mcL High 2.3 - 8.1 10^3/mcL AO Workflow SS Neutrophils/100 WBC (Bld) 91.3 % High 50.0 - 75.0 % AO Workflow SS Platelet mean volume (Bld) [Entitic vol] 7.0 fL Normal 6.6 - 10.5 fL AO Workflow SS Platelets (Bld) [#/Vol] 246 103/mcL Normal 150 - 450 10^3/mcL AO Workflow SS Potassium [Moles/Vol] 3.8 mmol/L Normal 3.5 - 5.1 mmol/L AO ADM SS Protein [Mass/Vol] 7.7 G/dL Normal 6.4 - 8.2 G/dL AO ADM SS RBC (Bld) [#/Vol] 4.32 106/mcL Normal 4.10 - 5.3 0 10^6/mcL AO Workflow SS Sodium [Moles/Vol] 139 mmol/L Normal 136 - 145 mmol/L AO ADM SS Urea nitrogen [Mass/Vol] 5 mg/dL Low 7 - 18 mg/dL AO ADM SS Urea nitrogen/Creatinine [Mass ratio] 11 ratio Normal 7 - 27 ratio AO ADM SS WBC (Bld) [#/Vol] 18.0 103/mcL High 4.5 - 10.8 10^3/mcL AO Workflow SS LABORATORYOrdered By: Giuliana Gutierrez on 06-13-2024 Appearance (U) Slightly Cloudy *ABN* (06/13/24 11:02 PM) Invalid Interpretation Code Clear AO Auto Urine SS Bacteria LM.HPF (Urine sed) [#/Area] 1 /[HPF] Invalid Interpretation Code Negative AO Auto Urine SS Bilirubin Ql (U) Negative (06/13/24 11:02 PM) Normal Negative AO Auto Urine SS Color (U) Yellow (06/13/24 11:02 PM) Normal AO Auto Urine SS Glucose Test strip (U) [Mass/Vol] Negative Normal Negative AO Auto Urine SS Hemoglobin Auto test strip (U) [Mass/Vol] Negative (06/13/24 11:02 PM) Normal Negative AO Auto Urine SS Ketones Ql (U) 80 mg/dL Invalid Interpretation Code Negative AO Auto Urine SS UA Leuk Est Small *ABN* (06/13/24 11:02 PM) Invalid Interpretation Code Negative AO Auto Urine SS UA Nitrite Negative (06/13/24 11:02 PM) Normal Negative AO Auto Urine SS UA pH 6.0 (06/13/24 11:02 PM) Normal 5.0 - 8.0 AO Auto Urine SS UA Protein Trace mg/dL Normal Negative AO Auto Urine SS UA RBC Negative Normal 0-2 AO Auto Urine SS UA Spec Grav 1.020 (06/13/24 11:02 PM) Normal 1.015-1.025 AO Auto Urine SS UA Specimen Type Clean Catch (06/13/24 11:02 PM) Normal AO Auto Urine SS UA Squam Epithelial 5-10 /HPF Normal 0-20 AO Au to Urine SS UA Urobilinogen 0.2 E.U./dL Normal 0.2-1.0 AO Auto Urine SS WBC LM.HPF (Urine sed) [#/Area] 10-20 /HPF Invalid Interpretation Code 0-5 AO Auto Urine SS LIPon 06-13-2024 Lipase Level 18 U/L Normal 16-77 [facility] Comment on above: Performed By: #### C BC, ADIFF, ANEU, SHAYY, LAC #### [place] [address] No Panel Informationon 06-13 Culture Urine Specimen received in lab. [facility] UAon 06-13-2024 Color (U) Yellow Normal [facility] Comment on above: Performed By: #### C BC, ADIFF, ANEU, SHAYY, LAC #### [place] [address] Glucose (U) [Mass/Vol] Negative Normal Negative [facility] Comment on above: Performed By: #### C BC, ADIFF, ANEU, SHAYY, LAC #### [place] [address] Ketones Ql (U) 80 mg/dL Abnormal Negative [facility] Comment on above: Performed By: #### C BC, ADIFF, ANEU, SHAYY, LAC #### [place] [address] UA Appear Slightly Cloudy Abnormal Clear [facility] Comment on above: Performed By: #### C BC, ADIFF, ANEU, SHAYY, LAC #### [place] [address] UA Blood Negative Normal Negative [facility] Comment on above: Performed By: #### C BC, ADIFF, ANEU, SHAYY, LAC #### [place] [address] UA Leuk Est Small Abnormal Negative [facility] Comment on above: Performed By: #### C BC, ADIFF, ANEU, SHAYY, LAC #### [place] [address] UA Nitrite Negative Normal Negative [facility] Comment on above: Performed By: #### C BC, ADIFF, ANEU, SHAYY, LAC #### [address] [address] UA pH 6.0 Normal 5.0 - 8.0 [facility] Comment on above: Performed By: #### C BC, ADIFF, ANEU, SHAYY, LAC #### [address] [address] UA Protein Trace Normal Negative [facility] Comment on above: Performed By: #### C BC, ADIFF, ANEU, SHAYY, LAC #### [address] [address] UA Spec Grav 1.020 Normal 1.015-1.025 [facility] Comment on above: Performed By: #### C BC, ADIFF, ANEU, SHAYY, LAC #### [address] [address] UA Specimen Type Clean Catch Normal [facility] Comment on above: Performed By: #### C BC, ADIFF, ANEU, SHAYY, LAC #### [address] [address] UA Urobilinogen 0.2 E.U./dL Normal 0.2-1.0 [facility] Comment on above: Performed By: #### C BC, ADIFF, ANEU, SHAYY, LAC #### [address] [address] Urobilinogen (U) [Mass/Vol] Negative Normal Negative [facility] Comment on above: Performed By: #### C BC, ADIFF, ANEU, SHAYY, LAC #### [address] [address] UAMICon 06-13-2024 UA Bacteria 1+ /hpf Abnormal Negative [facility] Comment on above: Performed By: #### C BC, ADIFF, ANEU, SHAYY, LAC #### [address] [address] UA RBC Negative Normal 0-2 [facility] Comment on above: Performed By: #### C BC, ADIFF, ANEU, SHAYY, LAC #### [facility] [address] [place], [place] [address] UA Squam Epithelial 5-10 Normal 0-20 [facility] Comment on above: Performed By: #### C BC, FARTUN, ANEU, SHAYY, LAC #### [facility] [address] [place], [place] [address] UA WBC 10-20 Abnormal 0-5 [facility] Comment on above: Performed By: #### C BC, FARTUN ANEU, SHAYY, LAC #### [facility] [address] [place], [place] [address] Urinalysis, Completeon 06-13 EPI,SQUAMOUS 50-100 SEEN Normal 5-10 [facility] Comment on above: Order Comment: CLEAN CATCH Performed By: #### L 400.0001, M100.2200 #### [facility] [address] [place], [address] BACTERIA 1+ /hpf Normal None Seen [facility] Comment on above: Order Comment: CLEAN CATCH Performed By: #### L 400.0001, M100.2200 #### [facility] [address] [place], [address] RBC 0-5 SEEN Normal 0-5 [facility] Comment on above: Order Comment: CLEAN CATCH Performed By: #### L 400.0001, M100.2200 #### [facility] [address] [place], [address] WBC 10-25 SEEN Normal 0-5 [facility] Comment on above: Order Comment: CLEAN CATCH Performed By: #### L 400.0001, M100.2200 #### [facility] [address] [place], [address] Mucus Ql (Urine sed) 0 SEEN Normal [facility] Comment on above: Order Comment: CLEAN CATCH Performed By: #### L 400.0001, M100.2200 #### [facility] [address] [place], [address] [facility] 05-20-2024 [facility] Telephone (OBGYWM) KIM NGUYEN ([id number]) 3 F Date Time Provider Department 05/20/24 RICA HUGHES OBGYWM During your visit today, we recorded the following information about you: Allergies As of Date: 05/20/2024 Noted Allergy Reaction CAMPHOR 09/18/2018 14 - Other: See Comments EUCALYPTUS 09/18/2018 14 - Other: See Comments MENTHOL 09/18/2018 14 - Other: See Comments PETROLATUM,WHITE 09/18/2018 14 - Other: See Comments TURPENTINE 11/28/2021 14 - Other: See Comments VICLIZZY VAPORUB ([id number]*0 04/22/2019 5 - Intolerance Comments: blistering Date Reviewed: 05/06/2024 Reviewed by: Estephania Mayo LPN - Fully Assessed Reason for Visit: Centering for [Other] Prescriptions as of 05/21/2024 - aspirin, enteric coated (ECOTRIN LOW STRENGTH) 81 mg EC tablet Take 1 tablet by mouth once daily. - VIT 6-NXZN-FDZFT-DHA ORAL Take by mouth. - pyridoxine HCl, vitamin B6, (PYRIDOXINE ORAL) Take by mouth. - ferrous sulfate (IRON) 325 mg (65 mg iron) tablet Take 325 mg by mouth. - folic acid 400 mcg tablet Take 400 mcg by mouth once daily. - Sulfacetamide Sodium, Acne, 10 % susp APPLY A THIN LAYER TO THE FACE 1-2 TIMES DAILY Problem List As Of Date 05/20/2024 Noted Resolved BMI 36.0-36.9,adult [Z68.36] 05/06/2024 Encounter for supervision of normal first pregn*05/06/2024 UTI (urinary tract infection) in , ant*05/07/2024 Encounter Status:Closed by LA TAYLOR on 05/21/24 Normal [facility] Examination level ultrasound on 05-09-2024 Indication First trimester anatomic survey Maternal obesity, BMI >30 Impression The patient is referred for a first trimester anatomy scan including nuchal translucency measurement as clinically indicated. - Single, live, intrauterine . - [place] rump length measurement is consistent with the established gestational age. - A qualitative screen of the nuchal translucency and other anatomic structures was unremarkable on a complete first trimester anatomic assessment. - Not all structural malformations can be detected by ultrasound examination. - A standard anatomic survey at 16 weeks and a detailed exam at 20 weeks is recommended for increased risk. REMOTE READ Maternal Structures: Right Ovary: Size 51 mm x 19 mm x 20 mm Left Ovary: Size 37 mm x 12 mm x 14 mm Recommendations - A standard anatomic survey at 16 weeks and a detailed exam at 20 weeks for increased risk. - Additional follow up as clinically indicated. Maternal Assessment Height 173 cm Height (ft) 5 ft Height (in) 8 in Physical Exam Initial weight (lb) 230 lb Initial BMI 34.97 kg/m Maternal assessment other: 1 Para 0 Method Transabdominal ultrasound examination [place] . Number of fetuses: 1 Dating GA by prior assessment 12 w + 6 d TUSHAR by prior assessment: 11/14/2024 Ultrasound examination on: 05/08/2024 GA by U/S based upon: CRL GA by U/S 12 w + 4 d TUSHAR by U/S: 11/16/2024 Assigned: based on stated TUSHAR, selected on 05/08/2024 Assigned GA 12 w + 6 d Assigned TUSHAR: 11/14/2024 General Evaluation Cardiac activity present Placenta: anterior Cord vessels: 3 vessel cord Amniotic fluid: normal amount Biometry Standard FHR 158 bpm CRL 62.3 mm 12w 4d 26% [place] First Trimester Anatomy Calvarium: normal Falx cerebri: normal Choroid plexus: normal Profile: normal Nasal bone: normal Retronasal triangle: normal Maxilla: normal Mandible: normal Nuchal translucency: Unremarkable Situs: normal Cardiac position: normal Cardiac axis: normal 4-chamber view: normal 4-chamber view with color: normal 8-rtlvxt-pcjxsyt view: normal Abdominal cord insertion: normal Stomach: normal Kidneys: normal Bladder: normal Color doppler of perivesical umbilical arteries: normal Vertebral alignment: normal Arms: normal Hands: normal Legs: normal Feet: normal Maternal Structures Uterus / Cervix Uterus: Visualized Uterus length 114 mm Uterus width 88 mm Uterus height 75 mm Uterus Vol 393.0 cm Ovaries / Tubes / Adnexa Rt ovary: Visualized Rt ovary D1 51 mm Rt ovary D2 19 mm Rt ovary D3 20 mm Rt ovary Vol 10.4 cm Lt ovary: Visualized Lt ovary D1 37 mm Lt ovary D2 12 mm Lt ovary D3 14 mm Lt ovary Vol 3.3 cm Performed By: Laurie Beatty RDMS, RVT Read By: Vandana Ross M.D. MATERNAL MEDICINE [facility] 05-08-2024 CNPN Telephone (OGFVWE) KIM NGUYEN ([id number]) 3 F Date Time Provider Department 05/08/24 [facility]SE CHIEF SERVICE [facility] OGF[facility] During your visit today, we recorded the following information about you: Heather Luis RN 05/08/2024 10:37 AM Signed 1st risk assessment form submitted 05/08/24 Heather Luis RN Allergies As of Date: 05/08/2024 Noted Allergy Reaction CAMPHOR 09/18/2018 14 - Other: See Comments EUCALYPTUS 09/18/2018 14 - Other: See Comments MENTHOL 09/18/2018 14 - Other: See Comments PETROLATUM,WHITE 09/18/2018 14 - Other: See Comments TURPENTINE 11/28/2021 14 - Other: See Comments VICLIZZY TRONCOSOUB ([id number]*0 04/22/2019 5 - Intolerance Comments: blistering Date Reviewed: 05/06/2024 Reviewed by: Estephania Mayo LPN - Fully Assessed Reason for Visit: PRAF [4193] Prescriptions as of 05/08/2024 - nitrofurantoin monohydrate and macrocrystal (MACROBID) 100 mg capsule Take 1 capsule by mouth two times a day for 7 days. - aspirin, enteric coated (ECOTRIN LOW STRENGTH) 81 mg EC tablet Take 1 tablet by mouth once daily. - VIT 8-TQAC-PDZYO-DHA ORAL Take by mouth. - pyridoxine HCl, vitamin B6, (PYRIDOXINE ORAL) Take by mouth. - ferrous sulfate (IRON) 325 mg (65 mg iron) tablet Take 325 mg by mouth. - folic acid 400 mcg tablet Take 400 mcg by mouth once daily. - Sulfacetamide Sodium, Acne, 10 % susp APPLY A THIN LAYER TO THE FACE 1-2 TIMES DAILY Problem List As Of Date 05/08/2024 Noted Resolved BMI 36.0-36.9,adult [Z68.36] 05/06/2024 Encounter for supervision of normal first pregn*05/06/2024 UTI (urinary tract infection) in , ant*05/07/2024 Encounter Status:Closed by HEATHER LUIS on 05/08/24 Normal [facility] Examination level ultrasound on 05-08-2024 Radiology Study observation (narrative) [facility] Bacteria Ur Culton Bacteria identified Cx Nom (U) ORGANISM ID: 1 >=100,000 CFU/ml Escherichia coli ORGANISM ID: 1 (ESCHERICHIA COLI) ------ ANTIBIOTIC INTERPRETATION LISA STATUS REFERENCE RANGE ------ Ampicillin S <=2 F Susceptible <=8 , Intermediate >8 , Resistant >16 Cefazolin S <=4 F Susceptible 0-16 , Intermediate <0 or >16 , Resistant >16 For uncomplicated urinary tract infections, cefazolin results can be used to predict susceptibility or resistance to cephalexin. Ceftriaxone S <=1 F Susceptible <=1 , Intermediate >1 , Resistant >=4 Cefepime S <=1 F Susceptible <=2 , Susceptible-Dose Dependent >2 , Resistant >=16 Ertapenem S <=0.5 F Susceptible <=0.5 , Intermediate >.5 , Resistant >1 Meropenem S <=0.25 F Susceptible <=1 , Intermediate >1 , Resistant >2 Ampicillin/Sulbact S <=2 F Susceptible <=8 , Intermediate >8 , Resistant >16 Piperacillin/Tazobac S <=4 F Susceptible <16 , Susceptible-Dose Dependent >=16 , Resistant >=32 Gentamicin S <=1 F Susceptible <=2 , Intermediate >2 , Resistant >=8 Tobramycin S <=1 F Susceptible <4 , Intermediate >=4 , Resistant >=8 Trimeth sulfameth S <=20 F Susceptible <=40 , Resistant >40 Ciprofloxacin S <=0.25 F Susceptible <0.5 , Intermediate >=.5 , Resistant >=1 Nitrofurantoin S <=16 F Susceptible <=32 , Intermediate >32 , Resistant >64 Abnormal [facility] Comment on above: Performed By: #### M AT21 #### [facility] CLIA [id number] [address] [place] [address] C. trachomatis+N. gonorrhoea e DNA LISA+probe Ql (Unsp spec)on 05-06-2024 C. trachomatis rRNA LISA+probe Ql (Unsp spec) Not detected Normal Not detected [facility] Comment on above: Order Comment: Speci men Type: BLOOD SPECIMEN Ordering Facility: [facility] Address: [address] [place] [address] Performed By: #### M AT21 #### [facility] CLIA [id number] [address] [place] [address] N. gonorrhoeae rRNA LISA+probe Ql (Unsp spec) Not detected Normal Not detected [facility] Comment on above: Order Comment: Speci men Type: BLOOD SPECIMEN Ordering Facility: [facility] Address: [address] [place] [address] Performed By: #### M AT21 #### [facility] CLIA [id number] [address] [place] [address] CBC W Auto Differential pane l (Bld)on 05-06-2024 Basophils (Bld) [#/Vol] 10*3/uL Normal <0.11 [facility] Comment on above: Order Comment: Speci men Type: BLOOD SPECIMEN Ordering Facility: [facility] Address: [address] [place] [address] Performed By: #### 5 7021-8 #### [facility] CLIA [id number] [address] [place] [address] [place] Basophils/100 WBC (Bld) 0.2 % Normal [facility] Comment on above: Order Comment: Speci men Type: BLOOD SPECIMEN Ordering Facility: [facility] Address: [address] [place] [address] Performed By: #### 5 7021-8 #### [facility] CLIA [id number] [address] [place] [address] [place] Differential cell count method Nom (Bld) Auto Normal [facility] Comment on above: Order Comment: Speci men Type: BLOOD SPECIMEN Ordering Facility: [facility] Address: [address] [place] [address] Performed By: #### 5 7021-8 #### [facility] CLIA [id number] [address] [place] [address] [place] Eosinophils (Bld) [#/Vol] 0.04 10*3/uL Normal <0.46 [facility] Comment on above: Order Comment: Speci men Type: BLOOD SPECIMEN Ordering Facility: [facility] Address: [address] [place] [address] Performed By: #### 5 7021-8 #### [facility] CLIA [id number] [address] [place] [address] [place] Eosinophils/100 WBC (Bld) 0.4 % Normal [facility] Comment on above: Order Comment: Speci men Type: BLOOD SPECIMEN Ordering Facility: [facility] Address: [address] [place] [address] Performed By: #### 5 7021-8 #### [facility] CLIA [id number] [address] [place] [address] [place] Erythrocyte distribution width (RBC) [Ratio] 11.9 % Normal 11.5-15.0 [facility] Comment on above: Order Comment: Speci men Type: BLOOD SPECIMEN Ordering Facility: [facility] Address: [address] [place] [address] Performed By: #### 5 7021-8 #### [id number] [address] [place] [address] [place] Hematocrit (Bld) [Volume fraction] 35.3 % Low 36.0-46.0 [facility] Comment on above: Order Comment: Speci men Type: BLOOD SPECIMEN Ordering Facility: [facility] Address: [address] [place] [address] Performed By: #### 5 7021-8 #### [id number] [address] [place] [address] [place] Hemoglobin (Bld) [Mass/Vol] 12.3 g/dL Normal 11.5-15.5 [facility] Comment on above: Order Comment: Speci men Type: BLOOD SPECIMEN Ordering Facility: [facility] Address: [address] [place] [address] Performed By: #### 5 7021-8 #### [id number] [address] [place] [address] [place] Immature granulocytes (Bld) [#/Vol] 10*3/uL Normal <0.10 [facility] Comment on above: Order Comment: Speci men Type: BLOOD SPECIMEN Ordering Facility: [facility] Address: [address] [place] [address] Performed By: #### 5 7021-8 #### [facility] CLIA [id number] [address] [place] [address] [place] [facility] Immature granulocytes/100 WBC (Bld) 0.2 % Normal [facility] Comment on above: Order Comment: Speci men Type: BLOOD SPECIMEN Ordering Facility: [facility] Address: [address] [place] [address] Performed By: #### 5 7021-8 #### [facility] CLIA [id number] [address] [place] [address] [place] Lymphocytes (Bld) [#/Vol] 2.68 10*3/uL Normal 1.00-4.00 [facility] Comment on above: Order Comment: Speci men Type: BLOOD SPECIMEN Ordering Facility: [facility] Address: [address] [place] [address] Performed By: #### 5 7021-8 #### [id number] [address] [place] [address] [place] Lymphocytes/100 WBC (Bld) 28.9 % Normal [facility] Comment on above: Order Comment: Speci men Type: BLOOD SPECIMEN Ordering Facility: [facility] Address: [address] [place] [address] Performed By: #### 5 7021-8 #### [facility] CLIA [id number] [address] [place] [address] [place] MCH (RBC) [Entitic mass] 29.9 pg Normal 26.0-34.0 [facility] Comment on above: Order Comment: Speci men Type: BLOOD SPECIMEN Ordering Facility: [facility] Address: [address] [place] [address] Performed By: #### 5 7021-8 #### [facility] CLIA [id number] [address] [place], [place] [id number] [place] MCHC (RBC) [Mass/Vol] 34.8 g/dL Normal 30.5-36.0 [facility] Comment on above: Order Comment: Speci men Type: BLOOD SPECIMEN Ordering Facility: [facility] Address: [address] [place] [address] Performed By: #### 5 7021-8 #### [facility] CLIA [id number] [address] [place] [address] [place] MCV (RBC) [Entitic vol] 85.9 fL Normal 80.0-100.0 [facility] Comment on above: Order Comment: Speci men Type: BLOOD SPECIMEN Ordering Facility: [facility] Address: [address] [place] [address] Performed By: #### 5 7021-8 #### [facility] CLIA [id number] [address] [place] [address] [place] Monocytes (Bld) [#/Vol] 0.58 10*3/uL Normal <0.87 [facility] Comment on above: Order Comment: Speci men Type: BLOOD SPECIMEN Ordering Facility: [facility] Address: [address] [place] [address] Performed By: #### 5 7021-8 #### [facility] CLIA [id number] [address] [place] [address] [place] Monocytes/100 WBC (Bld) 6.3 % Normal [facility] Comment on above: Order Comment: Speci men Type: BLOOD SPECIMEN Ordering Facility: [facility] Address: [address] [place] [address] Performed By: #### 5 7021-8 #### [facility] CLIA [id number] [address] [place] [address] [place] Neutrophils (Bld) [#/Vol] 5.93 10*3/uL Normal 1.45-7.50 [facility] Comment on above: Order Comment: Speci men Type: BLOOD SPECIMEN Ordering Facility: [facility] Address: [address] [place] [address] Performed By: #### 5 7021-8 #### [facility] CLIA [id number] [address] [place] [address] [place] Neutrophils/100 WBC (Bld) 64.0 % Normal [facility] Comment on above: Order Comment: Speci men Type: BLOOD SPECIMEN Ordering Facility: [facility] Address: [address] [place] [address] Performed By: #### 5 7021-8 #### [facility] CLIA [id number] [address] [place] [address] [place] Nucleated RBC (Bld) [#/Vol] 10*3/uL Normal <0.01 [facility] Comment on above: Order Comment: Speci men Type: BLOOD SPECIMEN Ordering Facility: [facility] Address: [address] [place] [address] Performed By: #### 5 7021-8 #### [facility] CLIA [id number] [address] [place] [address] [place] Nucleated RBC/100 WBC (Bld) [Ratio] 0.0 /100 WBC Normal [facility] Comment on above: Order Comment: Speci men Type: BLOOD SPECIMEN Ordering Facility: [facility] Address: [address] [place] [address] Performed By: #### 5 7021-8 #### [facility] CLIA [id number] [address] [place] [address] [place] Platelet mean volume (Bld) [Entitic vol] 9.0 fL Normal 9.0-12.7 [facility] Comment on above: Order Comment: Speci men Type: BLOOD SPECIMEN Ordering Facility: [facility] Address: [address] [place] [address] Performed By: #### 5 7021-8 #### [facility] CLIA [id number] [address] [place] [address] [place] Platelets (Bld) [#/Vol] 239 10*3/uL Normal 150-400 [facility] Comment on above: Order Comment: Speci men Type: BLOOD SPECIMEN Ordering Facility: [facility] Address: [address] [place] [address] Performed By: #### 5 7021-8 #### [facility] CLIA [id number] [address] [place] [address] [place] RBC (Bld) [#/Vol] 4.11 10*6/uL Normal 3.90-5.20 [facility] Comment on above: Order Comment: Speci men Type: BLOOD SPECIMEN Ordering Facility: [facility] Address: [address] [place] [address] Performed By: #### 5 7021-8 #### [facility] CLIA [id number] [address] [place] [address] [place] WBC (Bld) [#/Vol] 9.27 10*3/uL Normal 3.70-11.00 [facility] Comment on above: Order Comment: Speci men Type: BLOOD SPECIMEN Ordering Facility: [facility] Address: [address] [place] [address] Performed By: #### 5 7021-8 #### [facility] CLIA [id number] [address] [place] [address] [place] HBV surface Ag Ser Qlon 04-13 HBV surface Ag Ql (S) Negative Normal Negative [facility] Comment on above: Order Comment: Speci men Type: BLOOD SPECIMEN Ordering Facility: [facility] Address: [address] [place] [address] Performed By: #### M AT21 #### [facility] CLIA [id number] [address] [place] [address] HCV Ab Ser Qlon 05-06-2024 HCV Ab Ql (S) Negative Normal Negative [facility] Comment on above: Order Comment: Speci men Type: BLOOD SPECIMEN Ordering Facility: [facility] Address: [address] [place] [address] Result Comment: The result suggests no evidence of infection with Hepatitis C virus. Should recent infection be suspected, repeat testing may be considered 4-6 weeks after this draw. Performed By: #### 1 6128-1 #### [facility] CLIA [id number] [address] [place], [place] [address] [place] [address] [facility] HIV 1+2 Ab IA Qlon HIV 1 and 2 Ab IA.rapid Nom (S/P/Bld) Normal [facility] Comment on above: Order Comment: Speci men Type: BLOOD SPECIMEN Ordering Facility: [facility] Address: [address] [place] [address] Result Comment: Test not indicated. Performed By: #### M AT21 #### [facility] CLIA [id number] [address] [place] [address] HIV 1+2 Ab+HIV1 p24 Ag IA Ql Non-Reactive Normal Nonreactive [facility] Comment on above: Order Comment: Speci men Type: BLOOD SPECIMEN Ordering Facility: [facility] Address: [address] [place] [address] Performed By: #### M AT21 #### [facility] CLIA [id number] [address] [place] [address] HIV immunoassay testing algorithm interpretation (S/P/Bld) [Interp] Normal [facility] Comment on above: Order Comment: Speci men Type: BLOOD SPECIMEN Ordering Facility: [facility] Address: [address] [place] [address] Result Comment: No e vidence of HIV-1 or HIV-2 infection. Should recent infection be suspected, repeat testing may be considered 2-3 weeks after this draw. [place] Rev. Code 3701.243(E): This information has been disclosed to you from confidential records protected from disclosure by state law. ???You shall make no further disclosure of this information without the specific, written, and informed release of the individual to whom it pertains or as otherwise permitted by state law. A general authorization for the release of medical or other information is not sufficient for the purpose of the release of HIV test results or diagnoses. Performed By: #### M AT21 #### [facility] CLIA [id number] [address] [facility] [place] [address] HbA1c (Bld)on 05-06-2024 Average glucose Estimated from glycated hemoglobin (Bld) [Mass/Vol] 91 mg/dL Normal [facility] Comment on above: Order Comment: Lawanda bennett Type: BLOOD SPECIMEN Ordering Facility: [facility] Address: [address] [place] [address] Result Comment: eAG: (Estimated average glucose) is a calculated value from HgbA1c and is dairy supplies sales representative of the average blood glucose level in the last 2-3 month period. Performed By: #### 5 5454-3 #### [facility] CLIA [id number] [address] [place] [address] [place] [facility] HbA1c (Bld) [Mass fraction] 4.8 % Normal 4.3-5.6 [facility] Comment on above: Order Comment: Lawanda bennett Type: BLOOD SPECIMEN Ordering Facility: [facility] Address: [address] [place] [address] Result Comment: Amer ican Diabetes Association guidelines indicate that patients with HgbA1c in the range 5.7-6.4% are at increased risk for development of diabetes, and intervention by lifestyle modification may be beneficial. HgbA1c greater or equal to 6.5% is considered diagnostic of diabetes. Performed By: #### 5 5454-3 #### [facility] CLIA [id number] [address] [place] [address] [place] [id number] PLUSon 05-06-2024 Cell-free DNA./Cell-free DNA.total Dosage of chromosome-specific cfDNA (cfDNA) [Molar fraction] 20% Normal [facility] Comment on above: Order Comment: Lawanda bennett Type: BLOOD SPECIMEN Ordering Facility: [facility] Address: [address] [place] [address] Performed By: #### M AT21 #### [facility] CLIA [id number] [address] [place] [address] Chr 13+18+21+X+Y aneuploidy Dosage of chromosome-specific cfDNA Ql (cfDNA) Negative Normal [facility] Comment on above: Order Comment: Speci men Type: BLOOD SPECIMEN Ordering Facility: [facility] Address: [address] [place] [address] Performed By: #### M AT21 #### [facility] CLIA [id number] [address] [place] [address] Chr 21 trisomy Dosage of chromosome-specific cfDNA Ql (cfDNA) Negative Normal [facility] Comment on above: Order Comment: Speci men Type: BLOOD SPECIMEN Ordering Facility: [facility] Address: [address] [place] [address] Performed By: #### M AT21 #### [facility] CLIA [id number] [address] [place] [address] Chr X and Y aneuploidy risk Sequencing Ql (cfDNA) [Interp] Not detected Normal [facility] Comment on above: Order Comment: Speci men Type: BLOOD SPECIMEN Ordering Facility: [facility] Address: [address] [place] [address] Result Comment: Not Detected Not Detected Performed By: #### M AT21 #### [facility] CLIA [id number] [address] [place] [address] Citation Isidro (Reference lab test) Comment Normal [facility] Comment on above: Order Comment: Speci men Type: BLOOD SPECIMEN Ordering Facility: [facility] Address: [address] [place] [address] Result Comment: 1. P oxana MARIE, et al. Alissa Med. 2012;14(3):296-305. 2. Kathryn JONAS et al. Prenat Diag. 2013;33(6):591-597. 3. Joon C, et al. Clin Chem. 2015 Apr;61(4):608-616. 4. Citlaly MARIE et al. Alissa Med. 2011;13(11):913-920. 5. ACOG/SMFM Practice Bulletin No. 226, Nov 2019. Performed By: #### M AT21 #### [facility] CLIA [id number] [address] [place] [address] Gestational age Estimated from conception date Cedillo Normal [facility] Comment on above: Order Comment: Speci men Type: BLOOD SPECIMEN Ordering Facility: [facility] Address: [address] [place] [address] Performed By: #### M AT21 #### [facility] CLIA [id number] [address] [place] [address] GESTATIONALAGE AGE > OR = 9W Yes Normal [facility] Comment on above: Order Comment: Speci men Type: BLOOD SPECIMEN Ordering Facility: [facility] Address: [address] [place] [address] Performed By: #### M AT21 #### [facility] CLIA [id number] [address] [place] [id number] Laboratory comment Isidro (Report) Comment Normal [facility] Comment on above: Order Comment: Makenziei donald Type: BLOOD SPECIMEN Ordering Facility: [facility] Address: [address] [place] [address] Result Comment: The MaterniT(R) 21 PLUS laboratory-developed test (LDT) analyzes circulating cell-free DNA from a maternal blood sample. This test is used for screening purposes and not diagnostic. Clinical correlation is recommended. Validation data on twin pregnancies is limited and the ability of this test to detect aneuploidy in higher multiple gestations has not yet been validated. Performed By: #### M AT21 #### [facility] CLIA [id number] [address] [place] [id number] school director name Nom (Provider) Comment Normal [facility] Comment on above: Order Comment: Speci men Type: BLOOD SPECIMEN Ordering Facility: [facility] Address: [address] [place] [address] Result Comment: This specimen showed an expected representation of chromosome 21, 18 and 13 material. Clinical correlation is suggested. Comment Iain Flores MD, PhD, Director, [employer] Performed By: #### M AT21 #### [facility] CLIA [id number] [address] [place] [address] LIMITATIONS OF THE TEST Comment Normal [facility] Comment on above: Order Comment: Speci men Type: BLOOD SPECIMEN Ordering Facility: [facility] Address: [facility] [place] [address] Result Comment: Demario llanes the results of these tests are highly reliable, discordant results, including inaccurate sex prediction, may occur due to placental, maternal, or mosaicism or neoplasm; vanishing twin; prior maternal organ transplant; or other causes. These tests are screening tests and not diagnostic; they do not replace the accuracy and precision of diagnosis with CVS or amniocentesis. A patient with a positive test result should be referred for genetic counseling and offered invasive diagnosis for confirmation of test results.[5] The results of this testing, including the benefits and limitations, should be discussed with a qualified healthcare provider. management decisions, including termination of the , should not be based on the results of these tests alone. The healthcare provider is responsible for the use of this information in the management of their patient. Sex chromosomal aneuploidies are not reportable for known multiple gestations. A negative result does not ensure an unaffected nor does it exclude the possibility of other chromosomal abnormalities or defects which are not a part of these tests. An uninformative result may be reported, the causes of which may include, but are not limited to, insufficient sequencing coverage, noise or artifacts in the region, amplification or sequencing bias, or insufficient fraction. These tests are not intended to identify pregnancies at risk for neural tube defects or ventral wall defects. Testing for whole chromosome abnormalities (including sex chromosomes) and for subchromosomal abnormalities could lead to the potential discovery of both and maternal genomic abnormalities that could have major, minor, or no, clinical significance. Evaluating the significance of a positive or a non-reportable result may involve both invasive testing and additional studies on the mother. Such investigations may lead to a diagnosis of maternal chromosomal or subchromosomal abnormalities, which on occasion may be associated with benign or malignant maternal neoplasms. These tests may not accurately identify triploidy, balanced rearrangements, or the precise location of subchromosomal duplications or deletions; these may be detected by diagnosis with CVS or amniocentesis. The ability to report results may be impacted by maternal BMI, maternal weight, maternal systemic lupus erythematosus (SLE) and/or by certain pharmaceutical agents such as low molecular weight heparin (for example: Lovenox(R), Xaparin(R), Clexane(R) and Fragmin(R)). Performed By: #### M AT21 #### [facility] CLIA [id number] [address] [place] [address] Monosomy X risk Dosage of chromosome-specific cfDNA Ql (Plasma cell-free+WBC DNA) [Interp] Not detected Normal [facility] Comment on above: Order Comment: Lawanda bennett Type: BLOOD SPECIMEN Ordering Facility: [facility] Address: [address] [place] [address] Performed By: #### M AT21 #### [facility] CLIA [id number] [address] [place] [address] NEGATIVE PREDICTIVE VALUE Note Normal [facility] Comment on above: Order Comment: Lawanda bennett Type: BLOOD SPECIMEN Ordering Facility: [facility] Address: [address] [place] [address] Result Comment: The Negative Predictive Value (NPV) for trisomy 21, 18, and 13 is greater than 99%. The NPV for SCA and ESS cannot be calculated as SCA and ESS are only reported when an abnormality is detected. Performed By: #### M AT21 #### [facility] CLIA [id number] [address] [place] [address] PERFORMANCE CHARACTERISTICS Note Normal [facility] Comment on above: Order Comment: Lawanda bennett Type: BLOOD SPECIMEN Ordering Facility: [facility] Address: [address] [place] [address] Result Comment: ! Sex ! Accuracy: 99.4% ! ! ! ! Region (associated syndrome) ! Est. Sens# ! Est. Spec ! ! ! ! Trisomy 21 (Down Syndrome) ! 99.1% ! 99.9% ! ! ! ! Trisomy 18 (Johnson Syndrome) ! >99.9% ! 99.6% ! ! ! ! Trisomy 13 (Patau Syndrome) ! 91.7% ! 99.7% ! ! ! ! Sex Chromosome Aneuploidies## ! 96.2% ! 99.7% ! ! ! * As reported in [facility] database nstd37 [https://www.ncbi.nlm.nih.gov/dbvar/studies/nstd37/ ] # Estimated Sensitivity. Sensitivity estimated across the observed size distribution of each syndrome [per ISCA database nstd37] and across the range of fractions observed in routine clinical NIPT. Actual sensitivity can also be influenced by other factors such as the size of the event, total sequence counts, amplification bias, or sequence bias. ## Cedillo gestation only. Performed By: #### M AT21 #### [facility] CLIA [id number] [address] [place] [address] POSITIVE PREDICTIVE VALUE N/A Normal [facility] Comment on above: Order Comment: Speci men Type: BLOOD SPECIMEN Ordering Facility: [facility] Address: [address] [place] [address] Performed By: #### M AT21 #### [facility] CLIA [id number] [address] [place] [address] Reference Lab Test Method Comment Normal [facility] Comment on above: Order Comment: Speci men Type: BLOOD SPECIMEN Ordering Facility: [facility] Address: [address] [place] [address] Result Comment: See Notes Circulating cell-free DNA was purified from the plasma component of maternal blood. The extracted DNA was then converted into a genomic DNA library for aneuploidy analysis of chromosomes 21, 18, and 13 via next generation sequencing.[1] Optional findings based on the test order include sex chromosome aneuploidy (SCA)[2], and enhanced sequencing series (ESS)[3], which will only be reported on as an additional finding when an abnormality is detected. SCA testing includes information on X and Y representation, while ESS testing includes deletions in selected regions (22q, 15q, 11q, 8q, 5p, 4p, 1p) and trisomy of chromosomes 16 and 22. Performed By: #### M AT21 #### [facility] CLIA [id number] [address] [place] [address] Service comment (Unsp spec) [Interp] Comment Normal [facility] Comment on above: Order Comment: Speci men Type: BLOOD SPECIMEN Ordering Facility: [facility] Address: [address] [place] [address] Result Comment: See Notes [employer] is a subsidiary of [employer], using the brand [employer]. This test was developed and its performance characteristics determined by [employer]. It has not been cleared or approved by the Food and Drug Administration. This laboratory is certified under the Clinical Laboratory Improvement Amendments (CLIA) as qualified to perform high complexity clinical laboratory testing and accredited by the [employer] ([employer]). If there is future clinical need for adding MaterniT GENOME testing, this specimen will be available until term. [facility] samples will not be retained beyond 60 days. [facility] patients will have to send a new sample for re-sequencing ([facility] Test Code: 122201). Performed By: #### M AT21 #### [facility] CLIA [id number] [address] [place] [address] Sex Dosage of chromosome-specific cfDNA Nom (cfDNA) Comment Normal [facility] Comment on above: Order Comment: Speci men Type: BLOOD SPECIMEN Ordering Facility: [facility] Address: [address] [place] [address] Result Comment: Cons istent with Male Performed By: #### M AT21 #### [facility] CLIA [id number] [address] [place] [address] Test performance information Isidro (Unsp spec) Comment Normal [facility] Comment on above: Order Comment: Speci men Type: BLOOD SPECIMEN Ordering Facility: [facility] Address: [address] [place] [address] Result Comment: The performance characteristics of the MaterniT(R) 21 PLUS laboratory-developed test (LDT) have been determined in a clinical validation study with women at increased risk for chromosomal aneuploidy.[1-4] Performed By: #### M AT21 #### [facility] CLIA [id number] [address] [place] [address] Trisomy 13 risk Dosage of chromosome-specific cfDNA Ql (cfDNA) [Interp] Negative Normal [facility] Comment on above: Order Comment: Speci men Type: BLOOD SPECIMEN Ordering Facility: [facility] Address: [address] [place] [address] Performed By: #### M AT21 #### [facility] CLIA [id number] [address] [place] [address] Trisomy 18 risk Dosage of chromosome-specific cfDNA Ql (Plasma cell-free+WBC DNA) [Interp] Negative Normal [facility] Comment on above: Order Comment: Lawanda donald Type: BLOOD SPECIMEN Ordering Facility: [facility] Address: [address] [place] [address] Performed By: #### M AT21 #### [facility] CLIA [id number] [address] [place] [address] RUBELLA IGG ANTIBODYon 05-06 RUBELLA IGG AB, QUAL Positive Normal Positive [facility] Comment on above: Order Comment: Lawanda donald Type: BLOOD SPECIMEN Ordering Facility: [facility] Address: [address] [place] [address] Result Comment: The result suggests recent or past exposure to Rubella virus or history of Rubella vaccination. Positive result may also be seen due to presence of passively-transferred antibodies. Please correlate with patient's history. Performed By: #### M AT21 #### [facility] CLIA [id number] [address] [place] [address] Reagin and Treponema pallidu m IgG and IgM [Interp]on 05-06-2024 T. pallidum IgG+IgM IA Ql (S) Non-Reactive Normal Nonreactive [facility] Comment on above: Order Comment: Lawanda donald Type: BLOOD SPECIMEN Ordering Facility: [facility] Address: [address] [place] [address] Performed By: #### M AT21 #### [facility] CLIA [id number] [address] [place] [address] Reagin+T pallidum IgG+IgM Se rPl-Impon 05-06-2024 Reagin and Treponema pallidum IgG and IgM [Interp] Cannot exclude recent Treponemal infection if specimen collected within 7-10 days after appearance of suspect lesions or 2-3 weeks after an exposure. Clinical correlation is required. Normal [facility] Comment on above: Order Comment: Makenzieburton bennett Type: BLOOD SPECIMEN Ordering Facility: [facility] Address: [address] [place] [address] Performed By: #### M AT21 #### [facility] CLIA [id number] [address] [place] [address] TRICHOMONAS VAGINALIS NAATon 05-06-2024 T. vaginalis DNA LISA+probe Ql (Unsp spec) Not detected Normal Not detected [facility] Comment on above: Order Comment: Speci men Type: BLOOD SPECIMEN Ordering Facility: [facility] Address: [address] [place] [address] Performed By: #### M AT21 #### [facility] CLIA [id number] [address] [place] [address] TYPE + SCREEN PRENATALon ABO B Normal [facility] Comment on above: Order Comment: Speci men Type: BLOOD SPECIMEN Ordering Facility: [facility] Address: [address] [place] [address] Performed By: #### T SPN #### [facility] CLIA [id number] [address] [place] [address] [place] Rh Nom (Bld) Positive Normal [facility] Comment on above: Order Comment: Speci men Type: BLOOD SPECIMEN Ordering Facility: [facility] Address: [address] [place] [address] Performed By: #### T SPN #### [facility] CLIA [id number] [address] [place] [address] OF [facility] TYPE AND SCREEN EXPIRATION 05/09/2024 23:59 Normal [facility] Comment on above: Order Comment: Speci men Type: BLOOD SPECIMEN Ordering Facility: [facility] Address: [address] [place] [address] Performed By: #### T SPN #### [facility] CLIA [id number] [address] [place] [address] OF [place] CNOVon 08-27-2023 CNOV Office Visit (OBGYWM ) KIM MORENO ([id number]) 3 F Date Time Provider Department 08/27/23 8:20 AM CÉSAR JOSHI During your visit today, we recorded the following information about you: Blood pressure Weight Last Period 132/60 107.5 kg 07/25/23 César Joshi MD 08/27/2023 9:04 AM Signed Kim is a 18 year old who presents for Nexplanon removal for presence for 4 years. UNIVERSAL PROTOCOL / SAFETY CHECKLIST Procedure to be Performed: Nexplanon removal Sign In: A Moment of CARE was completed. Personnel directly involved with the procedure wore the appropriate PPE (Personal Protective Equipment). Patient/Surrogate Stated/Verified: PATIENT VERIFIED(optional for EMERGENT procedures): Patient name, Date of , Relevant allergies, and The intended procedure Time Out Communication: Intended patient and procedure match the source documents. Consent documented and matches the intended procedure. Correct side/site marked and visible. Sign Out: SIGN OUT (optional for EMERGENT procedures): device removed intact, shown to patient and discarded TECHNIQUE: Patient placed in supine position with right arm bent at the elbow and placed over the head. Skin cleansed with betadine. 1mL of 1% lidocaine injected subQ along insertion site. Scalpel used to made a 5mm stab incision superficially at distal end of Nexplanon. Device removed under sterile technique with a small hemostat. Sterile pressure dressing applied. AANDP: 18 year old here for Nexplanon removal Nexplanon removed intact without difficulty. The patient was instructed to remove the dressing after 24 hours. Contraceptive plans taking a break from contraception and will use condoms César Joshi MD Referring Provider: SELF [200] Allergies As of Date: 08/27/2023 Noted Allergy Reaction VICKS VAPORUB ([id number]*0 04/22/2019 5 - Intolerance Comments: blistering Date Reviewed: 08/27/2023 Reviewed by: Melissa Elizondo LPN - Fully Assessed Reason for Visit: nexplanon removal [Other] Primary Visit Diagnosis:Nexplanon removal [Z30.46] Order(s):UA DIP,URINE HCG (POC) [[id number]] Order #: [id number]. #:[id number] Prescriptions as of 08/27/2023 - VITAMIN B-2 100 mg tab - melatonin 10 mg tab Take by mouth. - magnesium oxide (MAG-OX) 400 mg (241.3 mg magnesium) tablet Take 1 tablet by mouth once daily. - spironolactone (ALDACTONE) 100 mg tablet TAKE 1 TABLET BY MOUTH AT THE SAME TIME NIGHTLY WITH WATER - ketoconazole (NIZORAL) 2 % shampoo WASH THE SCALP DAILY AND ALLOW TO SIT ON THE SCALP FOR 5 MINUTES PRIOR TO RINSING - Sulfacetamide Sodium, Acne, 10 % susp APPLY A THIN LAYER TO THE FACE 1-2 TIMES DAILY - atomoxetine (STRATTERA) 40 mg capsule - etonogestrel (NEXPLANON) subdermal implant 68 mg 1 Each by SUBDERMAL route as directed. - albuterol HFA (PROVENTIL HFA, VENTOLIN HFA) 90 mcg/actuation inhaler Inhale 2 Puffs as instructed. Problem List As Of Date: 08/27/2023 (None) Letter Text Encounter Status:Closed by CÉSAR JOSHI on 08/27/23 Normal [facility] UA DIP,URINE HCG (POC)on Beta HCG ( test) Ql (U) Negative Negative [facility] Comment on above: Location:[facility], [facility] [place], [address] [employer] (POCT) Internal [facility] Location:[facility] [id number] [place] [address] POINT OF CARE [facility] Progress Noteon 12-12-2021 Front Clerk Authentication Interface Message Text Patient ID: Kim Moreno is a 16 y.o. female. Her chief complaint(s) include: Headache (Mom has concerns of Lupus) Assessment 1. Nonintractable episodic headache, unspecified headache type 2. Postural dizziness with presyncope Plan Kim was seen today for headache. Diagnoses and associated orders for this visit: Nonintractable episodic headache, unspecified headache type - AMB Referral To Neurology; Future - Magnesium Oxide; Take 1 Tablet (400 mg) by mouth daily - Vitamin B-2; Take 2 Tablets (200 mg) by mouth daily - Orthostatic blood pressure Postural dizziness with presyncope - AMB Referral To Neurology; Future - Magnesium Oxide; Take 1 Tablet (400 mg) by mouth daily - Vitamin B-2; Take 2 Tablets (200 mg) by mouth daily - Orthostatic blood pressure 16 y.o. overweight female presenting with lightheadedness and headache x 1 year that is worsening. Prior lab work including Hg A1c, CRP, CBC, urine, BMP, lipid panel, Vit D, TSH normal. Differential is broad but includes orthostatic hypotension d/t dehydration (only drinking 16 oz of water daily) vs visual disturbance/changes (has not been evaluation in > 1 year) vs idiopathic intracranial hypertension vs sleep apnea (snores nightly, no known pauses). Will refer to neurology and start patient on mag ox and riboflavin for headaches. Repeat orthostatic BP today which were positive for HR 86 -->115. Will also have patient follow up with her normal slope tender and if any abnormalities will refer to ophlathmology. If after above evaluation there is no significant findings will discuss need for polysomnography. Discussed importance in drinking at least 64 oz of water daily, slow position changes, and increasing salt in diet. Discussed reasons to report to the ED, reasons for reevaluation in office. Maryam Ordaz DO Pediatric Resident, PGY-3 12/12/2021 3:21 PM I personally performed coreas portions of the history and physical examination of this patient and discussed the management plan with the resident. I reviewed the resident's note. The findings and the plan of care are set forth above. Vashti Mclean DO 1:42 PM 12/14/2021 Subjective HPI Comments: 1 year ago started becoming very lightheaded with near syncope. Denies dizziness. She will have to grab onto something so she does not fall over. Vision will go blurry. Will sit down for ~ 1 min and then will continue to go on with her day. Now is happening once a day. Typically occurs when she is standing up or walking. Denies respiratory problems. Palpitations 1-2 times but not often. She does wear glasses and is compliant with wearing them; however, she has not in the past 2 days because dog broke them. Coming in today because this has been happening more frequently. Did see Dr. Esteban in July regarding similar symptoms; orthostatic + for HR at that time 88 -->120. Recommended drinking more water. Lab work also sent that patient completed in September (CBC, BMP, Hg A1C, CRP, TSH, lipid panel, urine) which were all normal. Headaches have also been occurring weekly for the last year. Typically described as in the middle of her forehead and will improve with Advil and last longest for 1 day. Do not wake her from sleep, no N/V, photophobia, or phonophobia. Do not worsen with bending down or laying down. No vision changes. She did have a migraine that lasted for ~1 week 2 weeks ago. She was seen in the ER at this time and given a migraine cocktail. Patient was then able to fall asleep and was discharged home. Reported this headache was different because worse when bending down and she was nauseous. Unknown family hx of migraines. Has not had any headaches since this time. 7-8 hours of sleep nightly. No big life stressors. Drinks 16 oz of water a day. Eats breakfast lunch and dinner. On spironolactone for acne - has not taken in 2 months. Father with brain aneurysm and lupus. Kim does not have any joint pains or joint swelling, hot flashes/sweats, or random/unexplained fevers. Headache The onset has been variable. (1 year). The pattern is episodic. The course is worsening. The frequency of the symptoms has been 4 times per month and 1 time per week. The duration of each episode is Variable. The symptoms are described as interferring with normal daily activities (feels like it is slowing her down.). These symptoms occur on in the frontal area. The pain has no radiation. The patient's headache has no known triggers. The patient does not experience aura. The contributing factors have not included stress at school, recent head trauma and stress. Review of Systems HENT: Positive for headaches. Objective Vital Signs 12/12/21 1352 12/12/21 1506 12/12/21 1508 12/12/21 1510 BP: 120/77 107/55 106/62 111/68 Pulse: 104 86 103 (!) 115 Temp: 36.6 C (97.9 F) TempSrc: Temporal Weight: (!) 96.6 kg Blood pressure (lay flat for > or equal to 5 minutes): (more content not included)... Normal [facility] C-Reactive Proteinon 022 C-Reactive Protein 0.3 mg/dL Normal 0.0-1.0 [facility] Comment on above: Order Comment: Relea se to patient->Automatic 23548&Blood Result Comment: CRP determinations in neonates should be interpreted with caution. CRP may be elevated in circumstances not associated with inflammation (e.g. difficult delivery, pneumothorax). In premature neonates CRP levels may not rise to abnormal levels even if sepsis is present; some speculate that immature liver function decreases the ability to generate a CRP response. Performed By: #### C RP #### [address] [address] Hemoglobin A1con 09-13-2021 HbA1c (Bld) [Mass fraction] 5.4 % Normal 0.0-5.6 [facility] Comment on above: Order Comment: Relea se to patient->Automatic 52398&Blood Result Comment: Refe rence Interval: <5.7% 5.7-6.4% Prediabetes > or = 6.5% Diabetes Targets for diabetes management: Type I <7.5% Type II <7.0% Performed By: #### H BA1C #### [address] [address] C-reactive protein (Lab Citlali ect)on 09-12-2021 C-Reactive Protein 0.3 mg/dL 0 - 1 mg/dL [facility] Comment on above: CRP determinations i n neonates should be interpreted with caution. CRP may be elevated in circumstances not associated with inflammation (e.g. difficult delivery, pneumothorax). In premature neonates CRP levels may not rise to abnormal levels even if sepsis is present; some speculate that immature liver function decreases the ability to generate a CRP response. Release to patient->[facility]omatic [facility] Complete Blood Counton 09-12 Differential Complete Automated Normal Akr [facility] Comment on above: Order Comment: With differential. Release to patient->Automatic 60334&Blood Performed By: #### C BC #### [address] [address] Basophils/100 WBC (Bld) 0.20 % Normal 0.00-1.00 [facility] Comment on above: Order Comment: With differential. Release to patient->Automatic 32837&Blood Performed By: #### C BC #### [address] [address] Eosinophils/100 WBC (Bld) 0.90 % Normal 0.00-3.00 [facility] Comment on above: Order Comment: With differential. Release to patient->Automatic 99897&Blood Performed By: #### C BC #### [address] [address] Erythrocyte distribution width (RBC) [Ratio] 11.9 % Normal 0.0-14.4 [facility] Comment on above: Order Comment: With differential. Release to patient->Automatic 62806&Blood Performed By: #### C BC #### [address] [address] Hematocrit (Bld) [Volume fraction] 41.7 % Normal 37.0-46.0 [facility] Comment on above: Order Comment: With differential. Release to patient->Automatic 39040&Blood Performed By: #### C BC #### [address] [address] Hemoglobin (Bld) [Mass/Vol] 13.4 g/dL Normal 12.0-15.0 [facility] Comment on above: Order Comment: With differential. Release to patient->Automatic 36238&Blood Performed By: #### C BC #### [address] [address] Immature granulocytes/100 WBC (Bld) 0.40 % Normal [facility] Comment on above: Order Comment: With differential. Release to patient->Automatic 08835&Blood Result Comment: Radha ture Granulocyte Percent includes promyelocytes, myelocytes, and metamyelocytes. IG% > 1.0 indicates a left shift is present. With automated differentials, bands are included in the neutrophil count and not in the Immature Granulocyte Percent. Performed By: #### C BC #### [address] [address] Lymphocytes/100 WBC (Bld) 33.4 % Normal 25.0-45.0 [facility] Comment on above: Order Comment: With differential. Release to patient->Automatic 91923&Blood Performed By: #### C BC #### [address] [address] MCH (RBC) [Entitic mass] 28.9 pg Normal 25.0-35.0 [facility] Comment on above: Order Comment: With differential. Release to patient->Automatic 62715&Blood Performed By: #### C BC #### [address] [address] MCHC 32.1 % Normal 31.0-37.0 [facility] Comment on above: Order Comment: With differential. Release to patient->Automatic 45199&Blood Performed By: #### C BC #### [address] [address] MCV (RBC) [Entitic vol] 89.9 fL Normal 78.0-96.0 [facility] Comment on above: Order Comment: With differential. Release to patient->Automatic 72087&Blood Performed By: #### C BC #### [address] [address] Monocytes/100 WBC (Bld) 8.00 % High 3.00-6.00 [facility] Comment on above: Order Comment: With differential. Release to patient->Automatic 56099&Blood Performed By: #### C BC #### [address] [address] Neutrophils (Bld) [#/Vol] 4.6 10*3/uL Normal 1.8-7.5 [facility] Comment on above: Order Comment: With differential. Release to patient->Automatic 11127&Blood Performed By: #### C BC #### [address] [address] Neutrophils/100 WBC (Bld) 57.1 % Normal 34.0-64.0 [facility] Comment on above: Order Comment: With differential. Release to patient->Automatic 24734&Blood Performed By: #### C BC #### [address] [address] Nucleated RBC/100 WBC (Bld) [Ratio] 0.0 % Normal -1.0-0.0 [facility] Comment on above: Order Comment: With differential. Release to patient->Automatic 22133&Blood Performed By: #### C BC #### [address] [address] Platelet mean volume (Bld) [Entitic vol] 9.5 fL Normal [facility] Comment on above: Order Comment: With differential. Release to patient->Automatic 45840&Blood Result Comment: MPV is platelet range and age dependent Performed By: #### C BC #### [address] [address] Platelets (Bld) [#/Vol] 297 10*3/uL Normal 150-450 [facility] Comment on above: Order Comment: With differential. Release to patient->Automatic 78511&Blood Performed By: #### C BC #### [address] [address] RBC 4.64 10E12/L Normal 4.10-4.80 [facility] Comment on above: Order Comment: With differential. Release to patient->Automatic 72135&Blood Performed By: #### C BC #### [facility] [address] [place] [address] WBC (Bld) [#/Vol] 8.1 10*3/uL Normal 4.5-13.0 [facility] Comment on above: Order Comment: With differential. Release to patient->Automatic 11124&Blood Performed By: #### C BC #### [facility] [address] [place] [address] Complete Blood Count with Di ff (Lab Collect)on 09-12-2021 Basophils/100 WBC (Bld) 0.2 % 0 - 1 % [facility] Differential Complete Automated Akr on [facility] Eosinophils/100 WBC (Bld) 0.90 % 0 - 3 % [facility] Erythrocyte distribution width (RBC) [Ratio] 11.9 % 0 - 14.4 % [facility] Hematocrit (Bld) [Volume fraction] 41.7 % 37 - 46 % [facility] Hemoglobin (Bld) [Mass/Vol] 13.4 g/dL 12 - 15 g/dl [facility] Immature granulocytes/100 WBC (Bld) 0.4 % [facility] Comment on above: Immature Granulocyte Percent includes promyelocytes, myelocytes, and metamyelocytes. IG% > 1.0 indicates a left shift is present. With automated differentials, bands are included in the neutrophil count and not in the Immature Granulocyte Percent. Interpretation and review of laboratory results Abnormal [facility] Lymphocytes/100 WBC (Bld) 33.4 % 25 - 45 % [facility] MCH (RBC) [Entitic mass] 28.9 pg 25 - 35 pg [facility] MCHC 32.1 % 31 - 37 % [facility] MCV (RBC) [Entitic vol] 89.9 fL 78 - 96 fl [facility] Monocytes/100 WBC (Bld) 8.00 % High 3 - 6 % [facility] Neutrophils (Bld) [#/Vol] 4.6 10*3/uL [facility] Neutrophils/100 WBC (Bld) 57.1 % 34 - 64 % [facility] Nucleated RBC/100 WBC (Bld) [Ratio] 0 % -1 - 0 % [facility] Platelet mean volume (Bld) [Entitic vol] 9.5 fL [facility] Comment on above: MPV is platelet range and age dependent Platelets (Bld) [#/Vol] 297 10*3/uL [facility] RBC (Bld) [#/Vol] 4.64 10*6/uL [facility] WBC (Bld) [#/Vol] 8.1 10*3/uL [facility] With differential. Release to patient->[facility]omatic [facility] Hemoglobin A1c (Lab Collect) on 09-12-2021 HbA1c Elph (Bld) [Mass fraction] 5.4 % 0 - 5.6 % [facility] Comment on above: Reference Interval: <5.7% 5.7-6.4% Prediabetes > or = 6.5% Diabetes Targets for diabetes management: Type I <7.5% Type II <7.0% Release to patient->Automatic [facility] Basic Metabolic Panelon 07-15 Calcium [Mass/Vol] 10.0 mg/dL Normal 7.6-11.0 [facility] Comment on above: Performed By: #### B MP #### [address] [address] CO2 [Moles/Vol] 21.2 mmol/L Low 22.0-29.0 [facility] Comment on above: Performed By: #### B MP #### [address] [address] Creatinine [Mass/Vol] 0.58 mg/dL Normal 0.50-1.00 [facility] Comment on above: Performed By: #### B MP #### [address] [address] Glucose [Mass/Vol] 62 mg/dL Low 70-99 [facility] Comment on above: Result Comment: Rupali mcgill for Diagnosis of Diabetes: Fasting Specimen (no caloric intake for at least 8 hours): <100 mg/dL Normal 100-125 mg/dL Increased risk for Diabetes >125 mg/dL Diagnostic for Diabetes Random Glucose (any time of day without regard to last meal): > or = 200 mg/dL plus Classic Symptoms of Diabetes Performed By: #### B MP #### [address] [address] Urea nitrogen [Mass/Vol] 6 mg/dL Normal 4-19 [facility] Comment on above: Performed By: #### B MP #### [address] [address] Chloride [Moles/Vol] 103 mmol/L Normal 96-[address] [facility] Comment on above: Performed By: #### B MP #### [address] [address] Potassium [Moles/Vol] 3.4 mmol/L Normal 3.3-5.1 [facility] Comment on above: Performed By: #### B MP #### [address] [address] Sodium [Moles/Vol] 142 mmol/L Normal 133-145 [facility] Comment on above: Performed By: #### B MP #### [address] [address] Lipid Panelon 08-11-2021 Cholesterol in LDL [Mass/Vol] 65 mg/dL Normal 0-109 [facility] Comment on above: Performed By: #### L IPID #### [address] [address] Non-HDL Cholesterol 83 mg/dL Normal 0-119 [facility] Comment on above: Performed By: #### L IPID #### [address] [address] Cholesterol [Mass/Vol] 130 mg/dL Normal 0-169 [facility] Comment on above: Result Comment: Acce ptable (mg/dL): <170 Borderline-High (mg/dL): 170-199 High (mg/dL): > or = 200 Reference: Recommendations of the [place] [employer] (Pediatrics, Jan 2011, 128 (Supplement 5) P190-G926; DOI: 10.1542/peds.2008-2107C). Performed By: #### L IPID #### [place] [address] Cholesterol in HDL [Mass/Vol] 48 mg/dL Normal [facility] Comment on above: Result Comment: Low (mg/dL): <40 Borderline-Low (mg/dL): 40-45 Acceptable (mg/dL): >45 Performed By: #### L IPID #### [place] [address] Triglyceride [Mass/Vol] 89 mg/dL Normal 0-89 [facility] Comment on above: Performed By: #### L IPID #### [place] [address] TSH with reflex T4FRon 08-11 TSH with reflex T4FR 0.910 uIU/mL Normal 0.500-4.300 [facility] Comment on above: Performed By: #### T SHR #### [place] [address] Vitamin D 25 OHon 08-11-2021 25 OH Vitamin D 38 ng/mL Normal 30-100 [facility] Comment on above: Result Comment: Lilie phillip ranges provided by [facility] are based on Endocrine Society Guidelines: Level: Characterization <21 ng/mL: Vitamin D deficiency 21-29 ng/mL: Suboptimal Vitamin D status 30-100 ng/mL: Optimal Vitamin D status >100 ng/mL: Potentially toxic Vitamin D effects Performed By: #### V 25DH #### [facility] [address] [address] Progress Noteon 08-10-2021 Front Clerk Authentication Interface Message Text Patient ID: Kim Moreno is a 16 y.o. female. Her chief complaint(s) include: Dizziness (Dizziness, lightheaded for a few weeks, comes and goes, vision blurry and dark when she gets dizzy, headaches ) Assessment 1. Fatigue, unspecified type 2. Dizzinesses 3. Blurry vision 4. Screening for lipoid disorders 5. Attention deficit hyperactivity disorder, predominantly inattentive type Plan Kim was seen today for dizziness. Diagnoses and all orders for this visit: Fatigue, unspecified type - Vitamin D 25 hydroxy (Clinic Collect) - TSH with Reflex to T4, Free (Clinic Collect) - Hemoglobin A1c (Clinic Collect) - Basic Metabolic Panel (Clinic Collect) - POCT Blood Glucose - POCT urinalysis dipstick - Cancel: Complete Blood Count with Diff (Clinic Collect) - Cancel: C-reactive protein (Clinic Collect) Dizzinesses - Venipuncture - TSH with Reflex to T4, Free (Clinic Collect) - Hemoglobin A1c (Clinic Collect) - POCT Blood Glucose - POCT urinalysis dipstick - Cancel: C-reactive protein (Clinic Collect) - Orthostatic blood pressure - Urine culture (Clinic Collect) Blurry vision Screening for lipoid disorders - Lipid panel (Clinic Collect) Attention deficit hyperactivity disorder, predominantly inattentive type - atomoxetine (STRATTERA) 40 MG capsule; Take 1 Capsule (40 mg) by mouth every morning Patient with multiple symptoms that have persisted for last 2 weeks. No trigger or inciting event prior to onset. Patient's exam is unremarkable at this time. Will obtain laboratory studies to further evaluate. Instructed patient to get more sleep and to drink plenty of fluids. Was unable to get all the laboratory studies done, will have patient return tomorrow for the labs that we were unable to obtain today. Patient needing refill on strattera. Return if symptoms worsen or fail to improve. Subjective HPI Comments: Dizziness x 2 weeks with unknown cause. No worsening, not improving. No change in medications or activity. Blurry vision appears to be around the edges: central vision appears normal but peripheral vision blurry. Balance appears off some--worse with the episodes. Patient getting 6 to 7 hours of sleep. Not skipping meals. Able to get fluids. Haven't notice episodes getting worse or occurring when watching television or on the cell phone. No strange or abnormal bruising. No night sweats. No polyuria or polydipsia. No history of abnormal blood glucose levels in the past. She is accompanied by her mother. Independent history obtained from mother (and patient). Dizziness This problem is new. The duration has been 2 weeks. The onset has been acute. The course is unchanging (on and off throughout the day, most of the time symptoms only lasting a couple of seconds). The patient's symptoms have included decreased appetite (slightly decreased) and headaches (sometimes but not always). The patient's symptoms have included no fatigue, no fever, no decreased fluid intake, no difficulty sleeping, no congestion, no rhinorrhea, no sore throat, no cough, no difficulty breathing, no abdominal pain and no diarrhea. (no changes in amount of caffeine, not much in past or currently, will have some blurry vision (thinks both eyes but says it seems she can only see out of one eye---hard to describe), no increase stress. Does work at [employer] for last 3 to 4 months.). There have been no previous interventions. Review of Systems Neurological: Positive for dizziness. Objective Vital Signs 08/10/21 1536 08/10/21 1629 BP: 127/74 Pulse: 91 Temp: 36.4 C (97.6 F) TempSrc: Temporal Weight: (!) 99.1 kg Blood pressure (lay flat for > or equal to 5 minutes): 129/67 Pulse (lay flat for > or equal to 5 minutes): 88 Blood Pressure (stand at 1 minute interval): 127/67 Pulse (stand at 1 minute interval): 113 Blood Pressure (stand at 3 minute interval): 119/71 Pulse (stand at 3 minute interval): 120 There is no height or weight on file to calculate BMI. Physical Exam Constitutional: She appears well. She is active. No distress. overweight HENT: Head: Atraumatic. Ears: Right Ear: Tympanic membrane and external ear normal. Left Ear: Tympanic membrane and external ear normal. Nose: Nose normal. No nasal discharge. Mouth/Throat: Mucous membranes are moist. Dentition is normal. No pharynx erythema. Eyes: Conjunctivae and EOM are normal. Pupils are equal, round, and reactive to light. Neck: Neck supple. Cardiovascular: Normal rate, regular rhythm, S1 normal and S2 normal. Pulses are palpable. Pulmonary/Chest: Effort normal and breath sounds normal. Abdominal: Soft. Bowel sounds are normal. She exhibits no distension and no mass. There is no abdominal tenderness. There is no guarding. Musculoskeletal: Cervical back: Neck supple. General: No deformity. Neurological: She is alert. She has normal strength and normal reflexes. She exhibits normal mu (more content not included)... Normal [facility] Urine Cultureon 08-10-2021 Bacteria identified Cx Nom (U) Is this specimen being sent to an external lab?->No Release to patient->Automatic [id number]&Urine-Bladder^^ ^Urine&Urine Urine Culture: 50,000 - 100,000 CFU/ml of Normal Skin/urogenital jessica Source: URNBL Collected: 08/10/21 17:07 Site: Urine Received : 08/10/21 21:44 Urine Culture FINAL 08/12/21 08:13 50,000 - 100,000 CFU/ml of Normal Skin/urogenital jessica present Normal [facility] Comment on above: Performed By: #### U RINE #### [place] [address] STREP A MOLECULAR (POC)on Procedural Control Valid [facility] Strep A (POCT) Positive Abnormal Negative [facility] Progress Noteon 04-29-2021 Front Clerk Authentication Interface Message Text Patient ID: Kim Moreno is a 16 y.o. female. Her chief complaint(s) include: 16 YEAR WELL CHILD and ADHD Follow-up Assessment 1. Encounter for routine child health examination without abnormal findings 2. Exercise counseling 3. Encounter for dietary counseling and surveillance 4. Attention deficit hyperactivity disorder, predominantly inattentive type 5. Arthralgia of both knees 6. Bilateral ankle pain, unspecified chronicity 7. Bilateral low back pain without sciatica, unspecified chronicity 8. Hair loss Plan Kim was seen today for 16 year well child and adhd follow-up. Diagnoses and all orders for this visit: Encounter for routine child health examination without abnormal findings - PHQ9 Assessment With Score - Health Risk Assessment - CRAFFT Exercise counseling Encounter for dietary counseling and surveillance Attention deficit hyperactivity disorder, predominantly inattentive type Arthralgia of both knees Bilateral ankle pain, unspecified chronicity Bilateral low back pain without sciatica, unspecified chronicity Hair loss Overall doing well. School is going better; will continue on current dosing of strattera. Needs to see dermatology for the hair loss; has referral and will call to make an appointment with [facility]. Gets knee pain, back pain, and ankle pain sometimes if walking or standing more than normal- may be due to overuse. Recommended PT evaluation/possible treatment for these pains. Kim will discuss with family then call the office if needing referral. Will call if symptoms worsening. Subjective HPI Comments: Hasn't seen dermatology yet for the hair loss. Needs to make an appointment at [facility]. Strattera helps some with ADHD symptoms/focus. Feeling tired some. Knee pain, knees buckle if she walks too much. Back pain, ankle pain if she walks too much. Ankles get swollen occasionally. No recent injuries. Pain doesn't stop her from doing anything. Takes tylenol sometimes- helps. Getting pain a few times per week. She is unaccompanied. 16 YEAR WELL CHILD Complications after delivery: parental limits and consequences for unacceptable behavior Home: Kim eats meals with family, has an adult to turn to for help and is permitted and able to make independent decisions. Education: Kim is in 11th grade and is doing well. ([employer] for [employer] education. Currently passing all her classes.). Eating: Kim eats regular meals including fruits and vegetables and has a calcium source (milk at school). Activities & Sports: Kim has friends and has a job ([employer]). Drugs: Kim does not use tobacco, does not use drugs, does not use alcohol and does not vape. Safety: Kim has a violence free home and has peer relationships free from violence. Sex: The patient has never had a sexual partner. The patient has never had sex. Suicidality: Kim has no depression and has no anxiety. PHQ-9 Score: 6 Menstruation Last Menstrual period: LMP from Vitals No LMP recorded. Patient has had an implant.. (Not getting periods) Output Urine and Stool Pattern: Urine and Stool Pattern: Normal stool pattern, normal urine pattern. Sleep Sleep Difficulty: often stays up late, sleeps okay otherwise. Teen Anticipatory Guidance The following anticipatory guidance was reviewed during the visit: Nutrition: limit junk food/fast food and soft drinks. Safety: home safety. Social: avoid or limit screen time and parental limits and consequences for unacceptable behavior. Health: age appropriate dental care, age appropriate sleep habits, avoid situations where drugs and alcohol are present, practice abstinence- the safest way to prevent and STDs, puberty/sexual development/contracep tions/STDs and talk with trusted adult if feeling sad or nervous. Screenings Previous Vaccine Reactions: No. Life events information was reviewed-no referral needed Tuberculosis Concerns: Negative Tuberculosis Screen Concerns: no TB Risk Factors Hearing Vision Concerns: The caregiver has no concerns about the patient's hearing. The caregiver has no concerns about the patient's vision. Hyperlipidemia Concerns: Negative Hyperlipidemia Screen Concerns: no parent or grandparent with [place] angina peripheral or cerebrovascular disease <55 years, no parent or grandparent with sudden cardiac <55 years and no parent with cholesterol >240mg/dl ADHD Follow-up Primary Care Review of Systems Objective Vital Signs 04/29/21 1130 Weight: (!) 102.6 kg Height: 172.7 cm Body mass index is 34.39 kg/m . Physical Exam Constitutional: She appears well. She is active. No distress. HENT: Head: Atraumatic. Ears: Right Ear: Tympanic membrane and external ear normal. Left Ear: Tympanic membrane and external ear normal. Nose: Nose normal. No nasal discharge. Mouth/Throat: Mucous membranes are moist. Dentition is herlinda (more content not included)... Normal [facility] Progress Noteon 04-14-2021 Front Clerk Authentication Interface Message Text Patient ID: Kim Moreno is a 16 y.o. female. Her chief complaint(s) include: Other (Hair loss) Assessment 1. Hair loss Plan Kim was seen today for other. Diagnoses and all orders for this visit: Hair loss - Cancel: Venipuncture - Cancel: Ferritin (Clinic Collect) - Cancel: Complete Blood Count with Diff (Clinic Collect) - Cancel: TSH with Reflex to T4, Free (Clinic Collect) - Complete Blood Count with Diff (Lab Collect); Future - Ferritin (Lab Collect); Future - TSH with Reflex to T4, Free (Lab Collect); Future Return if symptoms worsen or fail to improve. Will check thyroid studies and CBC/ferritin levels for initial evaluation for hair loss. Attempted to get labs in the office today but were unable to obtain. Will come back for nurse visit for labs vs get them done at outside facility. Will call with results. If labs normal, may need dermatology evaluation. Subjective HPI Comments: Hair falling out in chunks, noticing a lot of hair loss with showering and brushing hair. Has been happening for months. Falling out from all over head. No head pain. Nothing makes it worse. Bilateral knee pain, back pain off and on over the past year. No joint swelling or warmth. Noticed the knee and back pain after starting work (stands a lot at work). Had shoulder pain in the past. Not recently. No temperature intolerance. No big weight changes. No fevers. No palpitations or fast heart rate. No skin changes. Some fatigue/tiredness but also is not sleeping enough hours (typically 5-6 hours per night). Sensitive to sounds and bright lights- always has been. Sensory processing issues. Dad had hair loss/balding starting in early 30s. No other family history early hair loss. Dad has lupus. She is accompanied by her father and mother. Independent history obtained from mother and father. Other The patient's symptoms have included no fever, no fussiness, no decreased appetite, no difficulty sleeping, no congestion, no cough, no shortness of breath, no wheezing, no difficulty breathing, no diarrhea, no rash and no vomiting. Primary Care Review of Systems Objective Vital Signs 04/14/21 1711 Temp: 36.7 C (98 F) TempSrc: Temporal Weight: (!) 104.5 kg There is no height or weight on file to calculate BMI. Physical Exam Constitutional: She appears well. She is active. No distress. HENT: Head: Atraumatic. Hair is abnormal (thinning of hair throughout head. Some areas of excoration/scabbing on scalp). Ears: Right Ear: Tympanic membrane and external ear normal. Left Ear: Tympanic membrane and external ear normal. Nose: No nasal discharge. Mouth/Throat: Mucous membranes are moist. No pharynx erythema. Eyes: Conjunctivae are normal. Right eyelid exhibits no discharge. Left eyelid exhibits no discharge. Right conjunctiva is not injected. Left conjunctiva is not injected. Neck: Neck supple. Thyroid normal. Cardiovascular: Normal rate and regular rhythm. Heart murmur not heard. Pulmonary/Chest: Effort normal and breath sounds normal. There is normal air entry. No respiratory distress. She has no wheezes. She has no rhonchi. She has no rales. Abdominal: Soft. There is no abdominal tenderness. Musculoskeletal: No pain, swelling, or limited range of motion at any joint. Cervical back: Normal range of motion and neck supple. General: No tenderness. Lymphadenopathy: No right anterior and posterior cervical adenopathy present. No left anterior and posterior cervical adenopathy present. Neurological: She is alert. She exhibits normal muscle tone. Skin: Capillary refill takes less than 3 seconds. Skin is warm. Skin is not pale. Findings: No rash. Vitals reviewed: Temperature 36.7 C (98 F), temperature source Temporal, weight (!) 104.5 kg. Normal [facility] Office Visiton 11-10-2016 Documentation of current medications (procedure) Done Invalid Interpretation Code [facility] Work Phone: Documentation of current medications (procedure) T Invalid Interpretation Code [facility] Work Phone: Protein mass conc Done Invalid Interpretation Code [facility] Work Phone: Protein mass conc T Invalid Interpretation Code [facility] Work Phone: Tobacco smoking status MOIS Never Invalid Interpretation Code [facility] Work Phone: Tobacco smoking status NHIS Never smoker Invalid Interpretation Code [facility] Work Phone: Tobacco use [facility] Never smoker Invalid Interpretation Code [facility] Work Phone: Office Visiton 10-13-2016 Documentation of current medications (procedure) Done Invalid Interpretation Code [facility] Work Phone: Documentation of current medications (procedure) T Invalid Interpretation Code [facility] Work Phone: Protein mass conc Done [facility] Work Phone: Protein mass conc T [facility] Work Phone: Tobacco smoking status NHIS Never [facility] Work Phone: Tobacco smoking status NHIS Never smoker [facility] Work Phone: Tobacco use [facility] Never smoker Invalid Interpretation Code [facility] Work Phone: Vital Signs Date Time Vital Sign Value Performing Clinician Facility 06-27-2024 08:00-0400 Body temperature 98.06 [degF] EDITH ALFARO MD [address] [place] [address] 06-27-2024 08:00-0400 Diastolic Blood Pressure Non-Invasive 62 mm[Hg] EDITH ALFARO MD [address] [place] [address] 06-27-2024 08:00-0400 Heart rate 107 /min EDITH ALFARO MD [address] 06-27-2024 08:00-0400 Reason For Taking VItal Signs EDITH ALFARO MD [address] [place] [address] 06-27-2024 08:00-0400 Systolic Blood Pressure Non-Invasive 134 mm[Hg] EDITH ALFARO MD [address] [place] [address] 06-27-2024 03:40-0400 Diastolic Blood Pressure Non-Invasive 63 mm[Hg] EDITH ALFARO MD [address] [place] [address] 06-27-2024 03:40-0400 Heart rate 115 /min EDITH ALFARO MD [address] [place] [address] 06-27-2024 03:40-0400 Systolic Blood Pressure Non-Invasive 137 mm[Hg] EDITH ALFARO MD [address] [place] [address] 06-27-2024 03:40-0400 Body temperature 98.78 [degF] EDITH ALFARO MD [address] [place] [address] 03:40-0400 Respiratory rate 18 /min EDITH ALFARO MD [address] [place] [address] 06-27-2024 00:34-0400 Diastolic Blood Pressure Non-Invasive 70 mm[Hg] EDITH ALFARO MD [address] [place] [address] 06-27-2024 00:34-0400 Heart rate 114 /min EDITH ALFARO MD [address] [place] [address] 06-27-2024 00:34-0400 Systolic Blood Pressure Non-Invasive 131 mm[Hg] EDITH ALFARO MD [address] [place] [address] 06-27-2024 00:34-0400 Body temperature 99.5 [degF] EDITH ALFARO MD [address] [place] [address] 06-27-2024 00:34-0400 Respiratory rate 20 /min EDITH ALFARO MD [address] [place] [address] 06-26-2024 19:50-0400 Reason For Taking VItal Signs EDITH ALFARO MD [address] [place] [address] 06-26-2024 19:50-0400 Respiratory rate 18 /min EDITH ALFARO MD [address] [place] [address] 06-26-2024 03:30-0400 Reason For Taking VItal Signs EDITH ALFARO MD [address] [place] [address] 06-25-2024 17:11-0400 Signs/Symptoms Transfusion Reaction No EDITH ALFARO MD [address] [place] [address] 06-25-2024 17:11-0400 Diastolic blood pressure 50 mm[Hg] EDITH ALFARO MD [address] [place] [address] 06-25-2024 17:11-0400 Heart rate 121 /min EDITH ALFARO MD [address] [place] [address] 06-25-2024 17:11-0400 Systolic blood pressure 118 mm[Hg] EDITH ALFARO MD [address] [place] [address] 06-25-2024 17:10-0400 Diastolic blood pressure 50 mm[Hg] EDITH ALFARO MD [address] [place] [address] 06-25-2024 17:10-0400 Heart rate 109 /min EDITH ALFARO MD [address] [place] [address] 06-25-2024 17:10-0400 Systolic blood pressure 118 mm[Hg] EDITH ALFARO MD [address] [place] [address] 06-25-2024 16:32-0400 Diastolic blood pressure 74 mm[Hg] EDITH ALFARO MD [address] [place] [address] 06-25-2024 16:32-0400 Heart rate 112 /min EDITH ALFARO MD [address] [place] [address] 06-25-2024 16:32-0400 Systolic blood pressure 119 mm[Hg] EDITH ALFARO MD [address] [place] [address] 06-25-2024 15:49-0400 Signs/Symptoms Transfusion Reaction No EDITH ALFARO MD [address] [place] [address] 06-24-2024 15:15-0400 Respiratory Rate - Anes 0 br/min EDITH ALFARO MD [address] [place] [address] 06-24-2024 15:10-0400 Respiratory Rate - Anes 22 br/min EDITH ALFARO MD [address] [place] [address] 06-24-2024 15:05-0400 Respiratory Rate - Anes 22 br/min EDITH ALFARO MD [address] [place] [address] 06-24-2024 14:55-0400 Body temperature 99.07 [degF] EDITH ALFARO MD [address] [place] [address] 06-24-2024 14:50-0400 Body temperature 99.27 [degF] EDITH ALFARO MD [address] [place] [address] 06-24-2024 14:45-0400 Body temperature 99.3 [degF] EDITH ALFARO MD [address] [place] [address] 06-24-2024 06:07-0400 Body height 177.8 cm EDITH ALFARO MD [facility] 06-24-2024 06:07-0400 Body weight 105.3 kg EDITH ALFARO MD [facility] 06-24-2024 06:07-0400 Body weight 33.31 kg/m2 EDITH ALFARO MD [facility] 06-23-2024 22:02-0400 Body height 177.8 cm EDITH ALFARO MD [facility] 06-23-2024 22:02-0400 Body weight 105.3 kg EDITH ALFARO MD [facility] 06-23-2024 22:02-0400 Body weight 33.31 kg/m2 EDITH ALFARO MD [facility] 06-23-2024 21:11-0400 Diastolic Blood Pressure Non-Invasive 72 mm[Hg] ZENAIDA CARINE DO [facility] 06-23-2024 21:11-0400 Heart rate 115 /min ZENAIDA CARINE DO [facility] 06-23-2024 21:11-0400 Respiratory rate 20 /min ZENAIDA CARINE DO [facility] 06-23-2024 21:11-0400 Systolic Blood Pressure Non-Invasive 113 mm[Hg] ZENAIDA CARINE DO [facility] 06-23-2024 19:03-0400 Diastolic Blood Pressure Non-Invasive 67 mm[Hg] ZENAIDA CARINE DO [facility] 06-23-2024 19:03-0400 Heart rate 105 /min ZENAIDA CARINE DO [facility] 06-23-2024 19:03-0400 Respiratory rate 22 /min ZENAIDA CARINE DO [facility] 06-23-2024 19:03-0400 Systolic Blood Pressure Non-Invasive 123 mm[Hg] ZENAIDA HAWK DO [facility] 06-23-2024 18:32-0400 Diastolic Blood Pressure Non-Invasive 75 mm[Hg] ZENAIDA HAWK DO [facility] 06-23-2024 18:32-0400 Heart rate 95 /min ZENAIDA HAWK DO [facility] 06-23-2024 18:32-0400 Respiratory rate 20 /min ZENAIDA HAWK DO [facility] 06-23-2024 18:32-0400 Systolic Blood Pressure Non-Invasive 130 mm[Hg] ZENAIDA HAWK DO [facility] 06-23-2024 16:34-0400 Body height 177.8 cm ZENAIDA HAWK DO [facility] 06-23-2024 16:34-0400 Body temperature 97.88 [degF] ZENAIDA HAWK DO [facility] 06-23-2024 16:34-0400 Body weight 109.1 kg ZENAIDA HAWK DO [facility] 06-23-2024 16:34-0400 Heart rate 115 /min ZENAIDA HAWK DO [facility] 06-19-2024 11:24-0400 Blood Pressure Cuff Size EMIR WEAVER DO [facility] 06-19-2024 11:24-0400 Blood Pressure Location EMIR WEAVER DO [facility] 06-19-2024 11:24-0400 Blood Pressure Method EMIR WEAVER DO [facility] 06-19-2024 11:24-0400 Body temperature 98.6 [degF] EMIR WEAVER DO [address] [place] [address] 06-19-2024 11:24-0400 Diastolic Blood Pressure Non-Invasive 87 mm[Hg] EMIR OWEN MARTIN [address] [place] [address] 06-19-2024 11:24-0400 Heart rate 99 /min EMIR OWEN MARTIN [address] [place] [address] 06-19-2024 11:24-0400 Respiratory rate 20 /min EMIR OWEN MARTIN [address] 06-19-2024 11:24-0400 Systolic Blood Pressure Non-Invasive 146 mm[Hg] EMIR OWEN MARTIN [address] [place] [address] 06-19-2024 10:51-0400 Heart rate 101 /min EMIR OWEN MARTIN [address] [place] [address] 06-19-2024 07:57-0400 Reason For Taking VItal Signs EMIR WEAVER DO [address] 06-19-2024 07:57-0400 Respiratory rate 20 /min EMIR OWEN MARTIN [address] 06-19-2024 07:50-0400 Diastolic Blood Pressure Non-Invasive 73 mm[Hg] EMIR OWEN MARTIN [address] [place] [address] 06-19-2024 07:50-0400 Heart rate 101 /min EMIR OWEN MARTIN [address] 06-19-2024 07:50-0400 Reason For Taking VItal Signs EMIR OWEN MARTIN [address] [place] [address] 06-19-2024 07:50-0400 Systolic Blood Pressure Non-Invasive 130 mm[Hg] EMIR OWEN MARTIN [address] [place] [address] 06-19-2024 04:56-0400 Body temperature 99.14 [degF] EMIR OWEN MARTIN [facility] 06-19-2024 04:56-0400 Diastolic Blood Pressure Non-Invasive 66 mm[Hg] EMIR WEAVER DO [facility] 06-19-2024 04:56-0400 Heart rate 106 /min EMIR OWEN MARTIN [facility] 06-19-2024 04:56-0400 Reason For Taking VItal Signs EMIR OWEN MARTIN [facility] 06-19-2024 04:56-0400 Respiratory rate 18 /min EMIR WEAVER DO [address] [place] [address] 06-19-2024 04:56-0400 Systolic Blood Pressure Non-Invasive 138 mm[Hg] EMIR OWEN MARTIN [facility] 06-19-2024 00:33-0400 Body temperature 98.24 [degF] EMIR OWEN MARTIN [facility] 06-18-2024 18:59-0400 Blood Pressure Cuff Size EMIR WEAVER DO [facility] 06-18-2024 18:59-0400 Blood Pressure Location EMIR OWEN MARTIN [facility] 06-18-2024 18:59-0400 Blood Pressure Method EMIR OWEN [facility] 06-18-2024 16:50-0400 Blood Pressure Location EMIR OWEN MARTIN [facility] 06-18-2024 16:50-0400 Blood Pressure Method EMIR OWEN MARTIN [facility] 06-18-2024 16:50-0400 Mean blood pressure 81 mm[Hg] EMIR OWEN [facility] 06-18-2024 10:19-0400 Heart rate 99 /min EMIR WEAVER DO [facility] 06-18-2024 06:36-0400 Heart rate 83 /min EMIR WEAVER DO [facility] 06-18-2024 04:10-0400 Blood Pressure Cuff Size EMIR WEAVER DO [address] [place] [address] 06-18-2024 04:10-0400 Heart rate 84 /min EMIR WEAVER DO [address] [place] [address] 06-16-2024 19:26-0400 Mean blood pressure 90 mm[Hg] EMIR WEAVER DO [address] [place] [address] 06-16-2024 19:12-0400 Body temperature 97.7 [degF] EMIR WEAVER DO [address] [place] [address] 06-16-2024 19:12-0400 Mean blood pressure 85 mm[Hg] EMIR WEAVER DO [address] [place] [address] 06-16-2024 18:12-0400 Body temperature 99.32 [degF] EMIR WEAVER DO [address] [place] [address] 06-16-2024 18:05-0400 Respiratory Rate - Anes 5 br/min EMIR WEAVER DO [address] [place] [address] 06-16-2024 18:00-0400 Respiratory Rate - Anes 12 br/min EMIR WEAVER DO [address] [place] [address] 06-16-2024 17:55-0400 Body temperature 99.54 [degF] EMIR OWEN MARTIN [address] [place] [address] 06-16-2024 17:55-0400 Respiratory Rate - Anes 15 br/min EMIR WEAVER DO [address] [place] [address] 06-16-2024 17:50-0400 Body temperature 99.57 [degF] EMIR OWEN DO [address] [place] [address] 06-16-2024 17:45-0400 Body temperature 99.61 [degF] EMIR OWEN DO [address] [place] [address] 06-15-2024 22:10-0400 Body height 175.3 cm EMIR WEAVER DO [facility] 06-15-2024 22:10-0400 Body weight 106.1 kg EMIR WEAVER DO [facility] 06-15-2024 22:10-0400 Body weight 34.53 kg/m2 EMIR WEAVER DO [facility] 06-15-2024 22:04-0400 Heart rate 120 /min EMIR WEAVER DO [address] [place] [address] 06-15-2024 19:06-0400 Body temperature 98.42 [degF] ALEX YANGER MAINTENANCE TEAM MEMBER-LITHOGRAPH PRINTER [address] [place] [address] 06-15-2024 19:06-0400 Diastolic Blood Pressure Non-Invasive 63 mm[Hg] ALEX TREYER MAINTENANCE TEAM MEMBER-LITHOGRAPH PRINTER [address] [place] [address] 06-15-2024 19:06-0400 Heart rate 105 /min ALEX TACHO MAINTENANCE TEAM MEMBER-LITHOGRAPH PRINTER [address] [place] [address] 06-15-2024 19:06-0400 Reason For Taking VItal Signs ALEX TITUS MAINTENANCE TEAM MEMBER-LITHOGRAPH PRINTER [address] [place] [address] 06-15-2024 19:06-0400 Respiratory rate 18 /min ALEX TITUS MAINTENANCE TEAM MEMBER-LITHOGRAPH PRINTER [address] [place] [address] 06-15-2024 19:06-0400 Systolic Blood Pressure Non-Invasive 128 mm[Hg] ALEX TREYER MAINTENANCE TEAM MEMBER-LITHOGRAPH PRINTER [address] [place] [address] 06-15-2024 16:45-0400 Body temperature 98.6 [degF] ALEX KAPPER MAINTENANCE TEAM MEMBER-LITHOGRAPH PRINTER [facility] 06-15-2024 16:45-0400 Diastolic Blood Pressure Non-Invasive 75 mm[Hg] ALEX TREYER MAINTENANCE TEAM MEMBER-LITHOGRAPH PRINTER [facility] 06-15-2024 16:45-0400 Heart rate 89 /min ALEX KAPPER MAINTENANCE TEAM MEMBER-LITHOGRAPH PRINTER [facility] 06-15-2024 16:45-0400 Reason For Taking VItal Signs ALEXTerri YANGER MAINTENANCE TEAM MEMBER-LITHOGRAPH PRINTER [facility] 06-15-2024 16:45-0400 Respiratory rate 18 /min ALEX KAPPER MAINTENANCE TEAM MEMBER-LITHOGRAPH PRINTER [facility] 06-15-2024 16:45-0400 Systolic Blood Pressure Non-Invasive 149 mm[Hg] ALEX TREYER MAINTENANCE TEAM MEMBER-LITHOGRAPH PRINTER [facility] 06-15-2024 13:47-0400 Body temperature 100.22 [degF] ALEX YANGER MAINTENANCE TEAM MEMBER-LITHOGRAPH PRINTER [facility] 06-15-2024 13:47-0400 Diastolic Blood Pressure Non-Invasive 65 mm[Hg] ALEX KAPPER MAINTENANCE TEAM MEMBER-LITHOGRAPH PRINTER [facility] 06-15-2024 13:47-0400 Heart rate 108 /min ALEX TREYER MAINTENANCE TEAM MEMBER-LITHOGRAPH PRINTER [facility] 06-15-2024 13:47-0400 Reason For Taking VItal Signs ALEXTerri YANGER MAINTENANCE TEAM MEMBER-LITHOGRAPH PRINTER [facility] 06-15-2024 13:47-0400 Respiratory rate 18 /min ALEX KAPPER MAINTENANCE TEAM MEMBER-LITHOGRAPH PRINTER [facility] 06-15-2024 13:47-0400 Systolic Blood Pressure Non-Invasive 137 mm[Hg] ALEX KAPPER MAINTENANCE TEAM MEMBER-LITHOGRAPH PRINTER [facility] 06-15-2024 13:35-0400 Body weight 107.1 kg ALEX TREYER MAINTENANCE TEAM MEMBER-LITHOGRAPH PRINTER [facility] 06-15-2024 13:33-0400 Body height 177.8 cm ALEX TITUS MAINTENANCE TEAM MEMBER-LITHOGRAPH PRINTER [facility] 06-15-2024 13:33-0400 Body weight 107.1 kg ALEX TITUS MAINTENANCE TEAM MEMBER-LITHOGRAPH PRINTER [facility] 06-15-2024 13:33-0400 Body weight 33.88 kg/m2 ALEX TITUS MAINTENANCE TEAM MEMBER-LITHOGRAPH PRINTER [facility] 06-15-2024 10:32-0400 Blood Pressure Cuff Size ALEX TITUS MAINTENANCE TEAM MEMBER-LITHOGRAPH PRINTER [facility] 06-15-2024 10:32-0400 Blood Pressure Location ALEX TITUS MAINTENANCE TEAM MEMBER-LITHOGRAPH PRINTER [facility] 06-15-2024 10:32-0400 Blood Pressure Method ALEX TITUS MAINTENANCE TEAM MEMBER-LITHOGRAPH PRINTER [facility] 06-14-2024 01:56-0400 Heart rate 84 /min AMINTA ALLENT DO [facility] 06-14-2024 01:56-0400 Respiratory rate 20 /min AMINTA ALLENT DO [facility] 06-13-2024 22:47-0400 Body height 175.3 cm AMINTA FROMMELT DO [facility] 06-13-2024 22:47-0400 Body temperature 98.24 [degF] AMINTA FROMMELT DO [facility] 06-13-2024 22:47-0400 Body weight 109.1 kg AMINTA FROMMELT DO [facility] 06-13-2024 22:47-0400 Diastolic Blood Pressure Non-Invasive 79 mm[Hg] AMINTA AYALA DO [facility] 06-13-2024 22:47-0400 Heart rate 79 /min AMINTA AYALA DO [facility] 06-13-2024 22:47-0400 Respiratory rate 18 /min AMINTA AYALA DO [facility] 06-13-2024 22:47-0400 Systolic Blood Pressure Non-Invasive 133 mm[Hg] AMINTA AYALA DO [facility] 05-06-2024 08:16-0400 Body height 173.7 cm Mona Browns[place] MAINTENANCE TEAM MEMBER.LITHOGRAPH PRINTER Work Phone: [facility] 05-06-2024 08:16-0400 Body mass index (BMI) [Ratio] 36.44 kg/m2 Mona Li MAINTENANCE TEAM MEMBER.LITHOGRAPH PRINTER Work Phone: [facility] 05-06-2024 08:16-0400 Body weight 109.95 kg Mona [place] MAINTENANCE TEAM MEMBER.LITHOGRAPH PRINTER Work Phone: [facility] 05-06-2024 08:16-0400 Diastolic blood pressure 78 mm[Hg] Mona [place] MAINTENANCE TEAM MEMBER.LITHOGRAPH PRINTER Work Phone: [facility] 05-06-2024 08:16-0400 Systolic blood pressure 126 mm[Hg] Mona Li MAINTENANCE TEAM MEMBER.LITHOGRAPH PRINTER Work Phone: [facility] 08-27-2023 08:11-0400 Body weight 107.5 kg César Joshi MD Work Phone: [facility] 08-27-2023 08:11-0400 Diastolic blood pressure 60 mm[Hg] César Joshi MD Work Phone: [facility] 08-27-2023 08:11-0400 Systolic blood pressure 132 mm[Hg] César Joshi MD Work Phone: [facility] 02-15-2022 17:52-0500 Body temperature 98.49 [degF] William Hinton MAINTENANCE TEAM MEMBER.LITHOGRAPH PRINTER Work Phone: [facility] 02-15-2022 17:52-0500 Body weight 101.97 kg William Hinton MAINTENANCE TEAM MEMBER.LITHOGRAPH PRINTER Work Phone: [facility] 02-15-2022 17:52-0500 Diastolic blood pressure 64 mm[Hg] William Hinton MAINTENANCE TEAM MEMBER.LITHOGRAPH PRINTER Work Phone: [facility] 02-15-2022 17:52-0500 Heart rate 101 /min William Hinton MAINTENANCE TEAM MEMBER.LITHOGRAPH PRINTER Work Phone: [facility] 02-15-2022 17:52-0500 Respiratory rate 20 /min William Hinton MAINTENANCE TEAM MEMBER.LITHOGRAPH PRINTER Work Phone: [facility] 02-15-2022 17:52-0500 SaO2% (BldA) [Mass fraction] 99 % [facility] MAINTENANCE TEAM MEMBER.LITHOGRAPH PRINTER Work Phone: [facility] 02-15-2022 17:52-0500 Systolic blood pressure 100 mm[Hg] William Hinton MAINTENANCE TEAM MEMBER.LITHOGRAPH PRINTER Work Phone: [facility] 02-15-2022 17:07-0500 Body height 177.8 cm [facility] Work Phone: 02-15-2022 17:07-0500 Body mass index (BMI) [Percentile] Per age and sex 96.6 % [facility] Work Phone: 02-15-2022 17:07-0500 Body mass index (BMI) [Ratio] 32.3 kg/m2 [facility] Work Phone: 02-15-2022 17:07-0500 Body temperature 97.8 [degF] [facility] Work Phone: 02-15-2022 17:07-0500 Body weight 102.2 kg [facility] Work Phone: 02-15-2022 17:07-0500 Diastolic blood pressure 81 mm[Hg] [facility] Work Phone: 02-15-2022 17:07-0500 Heart rate 85 /min [facility] Work Phone: 02-15-2022 17:07-0500 Respiratory rate 14 /min [facility] Work Phone: 02-15-2022 17:07-0500 SaO2% (BldA) [Mass fraction] 98 % [facility] Work Phone: 02-15-2022 17:07-0500 Systolic blood pressure 114 mm[Hg] [facility] Work Phone: 11-28-2021 17:16-0400 Body height 177.8 cm [facility] Work Phone: 11-28-2021 17:16-0400 Body mass index (BMI) [Percentile] Per age and sex 95.5 % [facility] Work Phone: 11-28-2021 17:16-0400 Body mass index (BMI) [Ratio] 30.7 kg/m2 [facility] Work Phone: 11-28-2021 17:16-0400 Body temperature 98 [degF] [facility] Work Phone: 11-28-2021 17:16-0400 Body weight 97.06 kg [facility] Work Phone: 11-28-2021 17:16-0400 Diastolic blood pressure 101 mm[Hg] [facility] Work Phone: 11-28-2021 17:16-0400 Heart rate 94 /min [facility] Work Phone: 11-28-2021 17:16-0400 Respiratory rate 18 /min [facility] Work Phone: 11-28-2021 17:16-0400 SaO2% (BldA) [Mass fraction] 100 % [facility] Work Phone: 11-28-2021 17:16-0400 Systolic blood pressure 125 mm[Hg] [facility] Work Phone: 05-16-2021 13:38-0400 Heart rate 112 /min Sonia Bogner PA-C Work Phone: [facility] 05-16-2021 13:10-0400 Body temperature 97.3 [degF] Sonia Bogner PA-C Work Phone: [facility] 05-16-2021 13:10-0400 Body weight 101.88 kg Sonia Bogner PA-C Work Phone: [facility] 05-16-2021 13:10-0400 Diastolic blood pressure 78 mm[Hg] Sonia Bogner PA-C Work Phone: [facility] 05-16-2021 13:10-0400 Respiratory rate 18 /min Sonia Bogner PA-C Work Phone: [facility] 05-16-2021 13:10-0400 SaO2% (BldA) [Mass fraction] 97 % Sonia Bogner PA-C Work Phone: [facility] 05-16-2021 13:10-0400 Systolic blood pressure 112 mm[Hg] Sonia Bogner PA-C Work Phone: [facility] 10-13-2016 14:44-0400 BMI (Body Mass Index) 36.61 kg/m2 [facility] Work Phone: 10-13-2016 14:44-0400 Height 121.92 cm [facility] Work Phone: 10-13-2016 14:44-0400 Weight 54.43 kg [facility] Work Phone: Encounters Encounter Date Encounter Type Care Provider Facility Start: 07-07-2024 End: 07-10-2024 Evaluation and management of inpatient JUNG HARDY MD [facility] Start: 07-06-2024 End: 07-06-2024 Emergency department patient visit CLAU KHAN DO [facility] Start: 07-04-2024 End: 07-04-2024 ambulatory MICHAEL LÓPEZ MD Facility:A Start: 06-23-2024 End: 06-27-2024 Evaluation and management of inpatient EDITH ALFARO MD [facility] Start: 06-23-2024 End: 06-23-2024 Emergency department patient visit ZENAIDA HAWK DO [facility] Start: 06-16-2024 End: 06-20-2024 Telephone encounter Jocelyn Yusuf MD Work Phone: OB/Gynecology Comment on above: Seen in ER 06/13/24 fo r UTI Start: 06-15-2024 End: 06-19-2024 Evaluation and management of inpatient EMIR OWEN DO [facility] Start: 06-15-2024 End: 06-15-2024 Evaluation and management of inpatient ALEX TITUS MAINTENANCE TEAM MEMBER-LITHOGRAPH PRINTER [facility] Start: 06-13-2024 End: 06-14-2024 Emergency department patient visit AMINTA AYALA DO [facility] Start: 06-13-2024 End: 06-13-2024 Emergency department patient visit Robles Cagle Facility:[facility] Start: 06-05-2024 End: 06-05-2024 ambulatory MELANIA NASSAR Facility:[facility] Start: 05-20-2024 End: 05-21-2024 Telephone encounter Ricamasood Hughes APRN.CNM Work Phone: OB/Gynecology Comment on above: Centering for pregna ncy Start: 05-08-2024 End: 05-08-2024 ambulatory [facility] Facility:[facility] Start: 05-08-2024 End: 05-08-2024 Patient encounter procedure [employer] Botan[employer] [facility] Comment on above: Encounter for antena regino screening for malformation using ultrasound (Primary Dx); 12 weeks gestation of ; Encounter for supervision of normal first in first trimester Start: 05-08-2024 End: 05-08-2024 Telephone encounter Nurse Pharmaceutical Botanist Clay Reynaga Work Phone: Obstetrics/Gynecology Comment on above: PRAF Start: 05-07-2024 End: 07-07-2024 Follow-up encounter Zenaida Shook APRN.CNP Work Phone: OB/Gynecology Comment on above: Results Start: 05-06-2024 End: 05-06-2024 ambulatory [facility] Facility:[facility] Start: 05-06-2024 End: 05-06-2024 Patient encounter procedure Mona Jefferson APRN.CNP Work Phone: OB/Gynecology Comment on above: 12 weeks gestation o f (Primary Dx); Encounter for supervision of normal first in first trimester; Screen for STD (sexually transmitted disease); BMI 36.0-36.9,adult Start: 05-05-2024 End: 05-05-2024 ambulatory Mona Jefferson APRN.CNP Work Phone: OB/Gynecology Comment on above: testing Start: 05-05-2024 End: 05-05-2024 E-mail encounter from caregiver Mona Jefferson APRN.CNP Work Phone: OB/Gynecology Start: 08-27-2023 End: 08-27-2023 ambulatory CÉSAR JOSHI Facility:[facility] Start: 08-27-2023 End: 08-27-2023 Patient encounter procedure César Joshi MD Work Phone: OB/Gynecology Comment on above: Nexplanon removal (P rimary Dx) Start: 02-15-2022 End: 02-15-2022 Office outpatient visit 25 minutes William Hinton APRN.LITHOGRAPH PRINTER Work Phone: [facility] Comment on above: Right eyelid lacerat ion, initial encounter (Primary Dx) Start: 02-15-2022 End: 02-15-2022 [facility] Start: 12-12-2021 End: 12-12-2021 ambulatory SELF REFERRED [facility] Start: 11-28-2021 End: 11-28-2021 [facility] Start: 09-12-2021 End: 09-13-2021 ambulatory [facility] Start: 09-12-2021 End: 09-12-2021 Subsequent hospital visit by physician Rosaline Esteban MD Work Phone: [facility] Comment on above: Fatigue, unspecified type; Dizzinesses Start: 08-10-2021 End: 08-10-2021 ambulatory SELF REFERRED [facility] Start: 05-16-2021 End: 05-16-2021 Patient encounter procedure Sonia Garza PA-C Work Phone: [facility] Comment on above: Sore throat (Primary Dx) Start: 04-29-2021 End: 04-29-2021 ambulatory [facility] Start: 04-14-2021 End: 04-14-2021 ambulatory [facility] Procedures Date Procedure Procedure Detail Performing Clinician Start: 06-16-2024 Appendectomy CLAU RICHARDS DO Start: 05-08-2024 Us preg uterus after 1st trimest 02/12 gestation Mona Jefferson APRN.CNP Work Phone: Start: 05-06-2024 Antibody screen CÉSAR JOSHI Comment on above: Order Comment: Speci men Type: BLOOD SPECIMEN Ordering Facility: [facility] Address: [address] [place] [address] [place] [address] Performed By: #### T SPN #### CC MAIN BLOOD BANK [facility] [id number] [address] [place], [place] [address] [place] Start: 08-27-2023 UA DIP,URINE HCG (POC) César Joshi MD Work Phone: Start: 09-12-2021 C-reactive protein Bong Esteban MD Work Phone: Start: 09-12-2021 CBC W Auto Different ial panel - Blood Rosaline Esteban MD Work Phone: Start: 09-12-2021 Hemoglobin A1c/Hemoglobin.total in Blood Rosaline Esteban MD Work Phone: Start: 05-16-2021 STREP A MOLECULAR (POC) Sonia Garza PA-C Work Phone: Structure of eye pro per (body structure) CLAU KHAN DO Plan of Treatment Date Care Activity Detail Author Start: 09-21-2026 Tetanus Diphtheria a nd Pertussis Vaccines (7 - Td or Tdap) Tetanus Diphtheria and Pertussis Vaccines (7 - Td or Tdap) [facility] Start: 09-21-2026 Urine microalbumin profile DTaP,Tdap,Td Vaccine (7 - Td or Tdap) [facility] Start: 05-06-2025 GC (Gonorrhea) Screening (18-24) GC (Gonorrhea) Screening (18-24) [facility] Start: 05-06-2025 Screening for Chlamy néstor trachomatis Chlamydia Screening (18-24) [facility] Start: 10-13-2024 Influenza vaccination Influenz a Vaccine (Season Ended) [facility] Start: 10-13-2024 RSV Vaccine (1 - Ris k 1-dose series) RSV Vaccine (1 - Risk 1-dose series) [facility] Start: 07-29-2024 End: 07-29-2024 Patient encounter procedure 07/29/2024 4:20 PM EDT Routine Office Visit OB/Gynecology [address] [place] [address] Larissa Marshall MD [address] [place] [address] OB Routine OB/Gynecology Comment on above: OB Routine Start: 07-08-2024 End: 07-08-2024 Patient encounter procedure 07/08/2024 10:30 AM EDT Office Visit OB/Gynecology [address] [place] [address] Melania Nassar MD [address] [place] [address] PP f/u - 19 week loss OB/Gynecology Comment on above: PP f/u - 19 week los s Start: 07-01-2024 End: 07-01-2024 Patient encounter procedure Maternal Medicine Comment on above: Anatomy Anatomy/OB Start: 06-05-2024 End: 06-05-2024 Patient encounter procedure 06/05/2024 10:00 AM EDT Routine Office Visit OB/Gynecology [address] [place] [address] Melania Nassar MD [address] [place] [id number] 1st OB - LMP 02/08/24 OB/Gynecology Comment on above: 1st OB - LMP 4 Start: 05-08-2024 End: 05-08-2024 Patient encounter procedure 05/08/2024 2:00 PM EDT Routine Office Visit Maternal Medicine [address] [place], [place] [id number] [facility] Comment on above: [facility]al Start: 05-06-2024 End: 08-05-2024 ANEMIA REFLEX PANEL [facility] Work Phone: Comment on above: Expected: 05/06/2024 , Expires: 08/05/2024 Start: 05-06-2024 End: 08-05-2024 Chromosome 21 trisomy [Presence] in Blood or Tissue by Cytogenetics [facility] Comment on above: Expected: 05/06/2024 , Expires: 08/05/2024 Start: 05-06-2024 End: 08-05-2024 Hemoglobin A1c in Blood [facility] Comment on above: Expected: 05/06/2024 , Expires: 08/05/2024 Start: 05-06-2024 End: 08-05-2024 Hepatitis B virus surface Ag [Presence] in Serum [facility] Comment on above: Expected: 05/06/2024 , Expires: 08/05/2024 Start: 05-06-2024 End: 08-05-2024 Hepatitis C virus Ab [Presence] in Serum [facility] Comment on above: Expected: 05/06/2024 , Expires: 08/05/2024 Start: 05-06-2024 End: 08-05-2024 HIV 1+2 Ab [Presence] in Serum or Plasma by Immunoassay [facility] Comment on above: Expected: 05/06/2024 , Expires: 08/05/2024 Start: 05-06-2024 End: 05-06-2025 OBSTETRIC ULTRASOUND [facility]I OBSTETRIC ULTRASOUND [facility] Anc Imaging Routine 12 weeks gestation of Encounter for supervision of normal first in first trimester Expected: 05/06/2024, Expires: 05/06/2025 [facility] Comment on above: Expected: 05/06/2024 , Expires: 05/06/2025 Start: 05-06-2024 End: 08-05-2024 RUBELLA IGG ANTIBODY [facility] Comment on above: Expected: 05/06/2024 , Expires: 08/05/2024 Start: 05-06-2024 End: 08-05-2024 SYPHILIS TREPONEMAL W/REFLEX [facility] Comment on above: Expected: 05/06/2024 , Expires: 08/05/2024 Start: 05-06-2024 End: 08-05-2024 TYPE + SCREEN [facility] Comment on above: Expected: 05/06/2024 , Expires: 08/05/2024 Start: 05-06-2024 End: 05-06-2024 Patient encounter procedure 05/06/2024 8:15 AM EDT Initial Office Visit OB/Gynecology [address] [place] [address] Mona Jefferson APRN.LITHOGRAPH PRINTER [address] [place] [address] OB/Gynecology Start: 10-14-2023 Covid-19 Vaccine ( season) Covid-19 Vaccine ( season) [facility] Start: 10-14-2023 Influenza vaccination Influenza Vacc ine (#1) [facility] Start: 02-12-2023 Behavioral Health Screening Behavioral Health Screening [facility] Start: 10-13-2022 Covid-19 Vaccine ( season) Covid-19 Vaccine () [facility] Start: 04-29-2022 Well Visit Well Visit [facility] Start: 03-15-2022 Meningococcal B Vacc ine (2 of 2 - Bexsero SCDM 2-dose series) Meningococcal B Vaccine (2 of 2 - Bexsero SCDM 2-dose series) [facility] Start: 02-12-2022 DEPRESSION ASSESSMENT DEPRESSION ASS ESSMENT [facility] Start: 02-05-2022 Anxiety Screening Anxiety Screening [facility] Start: 02-05-2022 CHLAMYDIA SCREENING () CHLAMYDIA SCREENING () [facility] Start: 02-05-2022 Depression Screening Depression Scre ening [facility] Start: 02-05-2022 GC (GONORRHEA) SCREENING () GC (GONORRHEA) SCREENING () [facility] Start: 02-05-2022 HEPATITIS C SCREENING HEPATITIS C [facility] Start: 02-05-2022 Hepatitis C screening Hepatitis C [facility] Start: 02-05-2022 HIV SCREENING HIV SCREENING [facility] Start: 02-05-2022 HIV screening HIV Screening [facility] Start: 02-05-2022 Screening for Chlamy néstor trachomatis Chlamydia Screening () [facility] Start: 10-13-2021 FLU (#1) FLU (#1) [facility] Start: 10-13-2021 Influenza vaccination [facility] Start: 10-10-2021 MenB (2 of 2 - MenB 2-Dose Series) MenB (2 of 2 - MenB 2-Dose Series) [facility] Start: 10-10-2021 Meningococcal B Vaccine: Consider Based On Risk (2 of 2 - Risk Bexsero 2-dose series) Meningococcal B Vaccine: Consider Based On Risk (2 of 2 - Risk Bexsero 2-dose series) [facility] Start: 2020 MENINGOCOCCAL CONJUG ATE (1 - 2-dose series) MENINGOCOCCAL CONJUGATE (1 - 2-dose series) [facility] Start: 02-05-2019 CHLAMYDIA SCREENING (<18) CHLAMYDIA SCREENING (<18) [facility] Start: 02-05-2019 GC (GONORRHEA) SCREENING (<18) GC (GONORRHEA) SCREENING (<18) [facility] Start: 02-05-2019 Hearing Screening Hearing Screening [facility] Start: 02-05-2019 Vision Screening Vision Screening [facility] Start: 02-05-2018 PEDS TO ADULT TRANSITION ANNUAL ASSESSMENT PEDS TO ADULT TRANSITION ANNUAL ASSESSMENT [facility] Start: 11-10-2016 End: 11-10-2016 Radex wrist complete minimum 3 views X-Ray, Wrist [facility] Work Phone: Start: 11-10-2016 End: 11-10-2016 Appointment Appointment [facility] Work Phone: Start: 2016 Adult depression screening assessment DEPRESSION SCREENING [facility] Start: 2016 PEDS TO ADULT TRANSITION INITIAL DISCUSSION PEDS TO ADULT TRANSITION INITIAL DISCUSSION [facility] Start: 02-05-2015 HPV VACCINE (1 - 2-d ose series) HPV VACCINE (1 - 2-dose series) [facility] Start: 02-05-2014 MENINGOCOCCAL B: Consider based on risk (1 of 2 - Risk Bexsero 2-dose series) MENINGOCOCCAL B: Consider based on risk (1 of 2 - Risk Bexsero 2-dose series) [facility] Start: 02-05-2011 Urine microalbumin profile DTAP,TDAP,TD (1 - Tdap) [facility] Start: 02-05-2010 Pneumococcal vaccination Pneumococcal Vaccine (1 of 2 - PCV) [facility] Start: 02-05-2009 COVID-19 VACCINE (1) COVID-19 VACCIN E (1) [facility] Start: 02-05-2005 MMR (1 of 2 - Standa rd series) MMR (1 of 2 - Standard series) [facility] Start: 02-05-2005 VARICELLA (1 of 2 - 2-dose childhood series) VARICELLA (1 of 2 - 2-dose childhood series) [facility] Start: 2004 COVID-19 (#1) COVID-19 (#1) [facility] Start: 2004 COVID-19 VACCINE (#1) COVID-19 VACCI NE (#1) [facility] Start: 2004 POLIO (1 of 3 - 4-do se series) POLIO (1 of 3 - 4-dose series) [facility] Start: 2004 HEPATITIS B (1 of 3 - 3-dose primary series) [facility] Bacteria identified in Urine by Culture BACTERIAL CULTURE, URINE Microbiology Routine 12 weeks gestation of Encounter for supervision of normal first in first trimester 05/06/2024 8:54 AM EDT [facility] Chlamydia trachomatis+Neisseria gonorrhoeae DNA [Presence] in Unspecified specimen by LISA with probe detection GONORRHEA/CHLAMYDIA NAAT Lab Routine 12 weeks gestation of Encounter for supervision of normal first in first trimester 05/06/2024 8:54 AM EDT [facility] Patient Education Understanding Headache Pain [facility] Work Phone: Patient referral [facility] Work Phone: TRICHOMONAS VAGINALI S NAAT TRICHOMONAS VAGINALIS NAAT Lab Routine Screen for STD (sexually transmitted disease) 05/06/2024 8:54 AM EDT [facility] Immunizations Immunization Date Immunization Notes Care Provider Fa amparo 09-12-2021 meningococcal B vacc ine, recombinant, OMV, adjuvanted Rosaline Esteban MD Work Phone: [facility] 07-30-2020 meningococcal polysaccharide (groups A, C, Y and W-135) diphtheria toxoid conjugate vaccine (MCV4P) Rosaline Esteban MD Work Phone: [facility] 04-09-2018 Human Papillomavirus 9-valent vaccine Rosaline Esteban MD Work Phone: [facility] 04-09-2018 influenza, injectabl e, quadrivalent, preservative free Rosaline Esteban MD Work Phone: [facility] 04-09-2018 influenza virus vacc ine, unspecified formulation César Joshi MD Work Phone: [facility] 09-21-2016 Human Papillomavirus 9-valent vaccine Rosaline Esteban MD Work Phone: [facility] 09-21-2016 meningococcal polysaccharide (groups A, C, Y and W-135) diphtheria toxoid conjugate vaccine (MCV4P) Rosaline Esteban MD Work Phone: [facility] 09-21-2016 tetanus toxoid, redu soha diphtheria toxoid, and acellular pertussis vaccine, adsorbed Rosaline Esteban MD Work Phone: [facility] 12-15-2008 diphtheria, tetanus toxoids and acellular pertussis vaccine Rosaline Esteban MD Work Phone: [facility] 12-15-2008 hepatitis A vaccine, pediatric/adolescent dosage, 2 dose schedule Rosaline Esteban MD Work Phone: [facility] 12-15-2008 influenza virus vacc ine, live, attenuated, for intranasal use Rosaline Esteban MD Work Phone: [facility] 12-15-2008 measles, mumps and rubella virus vaccine Rosaline Esteban MD Work Phone: [facility] 12-15-2008 poliovirus vaccine, inactivated Rosaline Esteban MD Work Phone: [facility] 12-15-2008 varicella virus vaccine Bong Esteban MD Work Phone: [facility] 03-26-2006 hepatitis A vaccine, adult dosage Rosaline Esteban MD Work Phone: [facility] 09-11-2005 diphtheria, tetanus toxoids and acellular pertussis vaccine Rosaline Esteban MD Work Phone: [facility] 09-11-2005 pneumococcal conjuga te vaccine, 7 valent Rosaline Esteban MD Work Phone: [facility] 09-11-2005 varicella virus vaccine Bong Esteban MD Work Phone: [facility] 02-24-2005 haemophilus influenz ae type b vaccine, PRP-T conjugate Rosaline Esteban MD Work Phone: [facility] 02-24-2005 hepatitis B vaccine, pediatric or pediatric/adolescent dosage Rosaline Esteban MD Work Phone: [facility] 02-24-2005 influenza virus vacc ine, unspecified formulation Rosaline Esteban MD Work Phone: [facility] 02-24-2005 measles, mumps and rubella virus vaccine Rosaline Esteban MD Work Phone: [facility] 2004 influenza virus vacc ine, unspecified formulation Rosaline Esteban MD Work Phone: [facility] 2004 poliovirus vaccine, inactivated Rosaline Esteban MD Work Phone: [facility] 2004 diphtheria, tetanus toxoids and acellular pertussis vaccine Rosaline Esteban MD Work Phone: [facility] 2004 haemophilus influenz ae type b vaccine, PRP-T conjugate Rosaline Esteban MD Work Phone: [facility] 2004 pneumococcal conjuga te vaccine, 7 valent Rosaline Esteban MD Work Phone: [facility] 2004 diphtheria, tetanus toxoids and acellular pertussis vaccine Rosaline Esteban MD Work Phone: [facility] 2004 haemophilus influenz ae type b vaccine, PRP-T conjugate Rosaline Esteban MD Work Phone: [facility] 2004 pneumococcal conjuga te vaccine, 7 valent Rosaline Esteban MD Work Phone: [facility] 2004 poliovirus vaccine, inactivated Rosaline Esteban MD Work Phone: [facility] 2004 diphtheria, tetanus toxoids and acellular pertussis vaccine Rosaline Esteban MD Work Phone: [facility] 2004 haemophilus influenz ae type b conjugate and Hepatitis B vaccine Rosaline Esteban MD Work Phone: [facility] 2004 haemophilus influenz ae type b vaccine, PRP-T conjugate Rosaline Esteban MD Work Phone: [facility] 2004 hepatitis B vaccine, pediatric or pediatric/adolescent dosage Rosaline Esteban MD Work Phone: [facility] 2004 pneumococcal conjuga te vaccine, 7 valent Rosaline Esteban MD Work Phone: [facility] 2004 poliovirus vaccine, inactivated Rosaline Esteban MD Work Phone: [facility] 2004 hepatitis B vaccine, pediatric or pediatric/adolescent dosage Rosaline Esteban MD Work Phone: [facility] Payers Date Payer Category Payer Self-pay [id number] 2024 Unknown [id number] 2016 Medicaid [employer] [facility] [place] [facility] [place] [id number] 2016-Present [phone] [address] [place] [address] Medicaid [id number] 2016 Medicaid [id number] 2012 Unknown [id number] 2009 Unknown [id number] 2004 Unknown [id number] 2004 Unknown [id number] 2004 Unknown [id number] 2004 Unknown [id number] 2004 Unknown [id number] 2004 Unknown [id number] 2004 Unknown [id number] 2004 Unknown [id number] 1975 Unknown [id number] 1975 Unknown [id number] 1975 Unknown [id number] 1975 Unknown [id number] 1975 Unknown [id number] 1975 Unknown [id number] Unknown [id number] Social History Date Type Detail Facility Start: 11-11-2019 End: 06-15-2024 Tobacco smoking status NHIS Never smoked tobacco [facility] Work Phone: Start: 11-11-2019 End: 05-05-2024 Tobacco use and exposure Smokeless tobacco non-user [facility] Work Phone: Start: 05-16-2021 End: 08-27-2023 Alcohol intake Lifetime non-drinker (finding) [facility] Start: 11-11-2019 History SDOH Alcohol Frequency 1 [facility] Start: 2004 Sex Assigned At Not on file [facility] Start: 05-06-2021 End: 09-12-2021 Exposure to SARS-CoV-2 (event) Not sure [facility] Work Phone: History of tobacco use Passive smoker [facility] Start: 08-10-2021 Alcohol intake Not Asked [facility] Start: 11-28-2021 End: 11-28-2021 Tobacco smoking status MOIS Unknown if ever smoked [facility] Work Phone: Start: 06-30-2019 Non-smoker [facility] Work Phone: Start: 2004 Sex Assigned At Female [facility] Start: 08-27-2023 Tobacco smoking status NHIS Occasional tobacco smoker [facility] History of tobacco use Cigarette Smoker [facility] Start: 11-11-2019 End: 01-20-2020 History of Social function [facility] Work Phone: Start: 11-11-2019 End: 01-20-2020 Alcohol Use Disorder Identification Test - Consumption [AUDIT-C] [facility] Work Phone: How often to you hav e a drink containing alcohol? Never [facility] Work Phone: Average Number of Drinks Not on file [facility] Start: 05-05-2024 Tobacco smoking status NHIS Ex-smoker [facility] History of tobacco use Current smoker [facility] Start: 05-05-2024 End: 05-06-2024 Alcoholic beverage intake Ex-drinker (finding) [facility] Start: 05-05-2024 Education 13 [facility] Start: 05-05-2024 Alcohol Comment special occasions [facility] Start: 02-22-2024 [facility] Tobacco Nicotine Use: denies. [facility] Tobacco smoking status [facility] Start: 06-13-2024 Sex Female (finding) [facility] Goals Date Patient Goal Desired Activity /State Personal health goal Functional Status Date Assessment Result Facility 06-27-2024 Functional Status Minimum assistance [facility] 06-26-2024 Functional Status [facility] 06-26-2024 Functional Status bilateral knee high matteo lied/on [facility] 06-26-2024 Functional Status [facility] 06-26-2024 Functional Status Done [facility] 06-26-2024 Functional Status [facility] 06-25-2024 Functional Status [facility] 06-25-2024 Functional Status [facility] 06-25-2024 Functional Status CHG bath [facility] 06-25-2024 Functional Status Lives with fam gabriel, Lives with spouse [facility] 06-25-2024 Functional Status Refused [facility] 06-24-2024 Functional Status [facility] 06-23-2024 Functional Status Sensory Deficits None [facility] 06-23-2024 Functional Status Independent [facility] 06-19-2024 Functional Status Lunch Percent 0 [facility] 06-19-2024 Functional Status Done [facility] 06-19-2024 Functional Status Room check performed [facility] 06-19-2024 Functional Status [facility] 06-19-2024 Functional Status [facility] 06-18-2024 Functional Status [facility] 06-18-2024 Functional Status Dinner Percent 0 [facility] 06-18-2024 Functional Status [facility] 06-18-2024 Functional Status [facility] 06-18-2024 Functional Status [facility] 06-18-2024 Functional Status Ambulating in room [facility] 06-17-2024 Functional Status [facility] 06-17-2024 Functional Status [facility] 06-17-2024 Functional Status [facility] 06-16-2024 Functional Status Patient Identi fied Identification band [facility] 06-16-2024 Functional Status NPO Status Maintained A [facility] 06-16-2024 Functional Status Driving, Health and wellness, Housework, Laundry, Meal preparation, Personal ADL, Shopping, Work [facility] 06-16-2024 Functional Status [facility] 06-15-2024 Functional Status [facility] 06-15-2024 Functional Status Room check performed [facility] 06-15-2024 Functional Status bilateral knee high rem irma/off [facility] 06-15-2024 Functional Status [facility] 06-15-2024 Functional Status [facility] 06-14-2024 Functional Status Assistive Device None [facility] 06-13-2024 Functional Status Awake [facility] Mental Status Date Assessment Result Facility 06-23-2024 Mental Status Oriented x 4 [facility] 06-19-2024 Mental Status Orientation Oriented x 4 [facility] 06-19-2024 Mental Status [facility] 06-18-2024 Mental Status [facility] 06-18-2024 Mental Status Orientation Asse ssment Oriented x 4 [facility] 06-18-2024 Mental Status [facility] 06-17-2024 Mental Status [facility] 06-15-2024 Mental Status Orientation Oriented x 4 [facility] 06-15-2024 Mental Status [facility] 06-15-2024 Mental Status [facility] 06-14-2024 Mental Status Orientation Oriented x 4 [facility] 06-13-2024 Mental Status [facility] 11-28-2021 Cognitive function Level Of Cons ciousness Awake;Alert;Appropriate;Follow s Commands [facility] Work Phone: Clinical Notes 05-16-2021 to 07-10-2024 Note Date & Type Note Facility 07-10-2024 Hospital Discharge instructions Patient Education 07/10/2024 09:45:20 Abdominal Pain, Adult, Ebto-ve-Naap Abdominal Pain, Adult Many things can cause belly (abdominal) pain. Most times, belly pain is not dangerous. Many cases of belly pain can be watched and treated at home. Sometimes, though, belly pain is serious. Your doctor will try to find the cause of your belly pain. Follow these instructions at home: Medicines Take dwlo-frj-ypsxepz and prescription medicines only as told by your doctor. Do not take medicines that help you poop (laxatives) unless told by your doctor. General instructions Watch your belly pain for any changes. Drink enough fluid to keep your pee (urine) pale yellow. Keep all follow-up visits as told by your doctor. This is important. Contact a doctor if: Your belly pain changes or gets worse. You are not hungry, or you lose weight without trying. You are having trouble pooping (constipated) or have watery poop (diarrhea) for more than 2 3 days. You have pain when you pee or poop. Your belly pain wakes you up at night. Your pain gets worse with meals, after eating, or with certain foods. You are vomiting and cannot keep anything down. You have a fever. You have blood in your pee. Get help right away if: Your pain does not go away as soon as your doctor says it should. You cannot stop vomiting. Your pain is only in areas of your belly, such as the right side or the left lower part of the belly. You have bloody or black poop, or poop that looks like tar. You have very bad pain, cramping, or bloating in your belly. You have signs of not having enough fluid or water in your body (dehydration), such as: ?Dark pee, very little pee, or no pee. ?Cracked lips. ?Dry mouth. ?Sunken eyes. ?Sleepiness. ?Weakness. You have trouble breathing or chest pain. Summary Many cases of belly pain can be watched and treated at home. Watch your belly pain for any changes. Take ymbh-bum-zdfhydv and prescription medicines only as told by your doctor. Contact a doctor if your belly pain changes or gets worse. Get help right away if you have very bad pain, cramping, or bloating in your belly. This information is not intended to replace advice given to you by your health care provider. Make sure you discuss any questions you have with your health care provider. Document Released: 07/17/2008 Document Revised: 06/09/2019 Document Reviewed: 06/09/2019 [employer] Patient Education 2019 [employer]. Follow Up Care 07/06/2024 21:18:36 With:Post 1XRN Discharge Follow Up Home Visit scheduled for 07-14-24 b/t 12p-4p Address:Unknown When: Unknown With:NOT PHYSICIAN Address:Unknown When:1-2 days With:MICHAEL LÓPEZ MD, Surgery Address: [address] [facility] [place] [address]- [phone] When:08/08/2024 10:30:00 [facility] 07-10-2024 Discharge summary Date of Service 07/10/2024 Discharge Diagnosis 1 - Surgical site infection (T81.49XA - ICD-10-CM) Hospital Course This patient is a 19-year-old female who underwent an open appendectomy on 06/17/1907/01/2024 for perforated appendicitis. Patient was seen in the office on 07/04/2024 where she had ros removed. Patient then returned back to [place] emergency room concerned that her wound had opened up and was larger. Initial workup in [place] emergency room patient did undergo a CT scan of abdomen pelvis that showed concern for fluid collections that were potentially concerning for abscesses. Given these findings he was transferred to [facility] for definitive care and treatment. A consult to interventional radiology was made for possible drain placement. But after review of CT scan it was decided that there was no drainable fluid collection. The patient continued to have wound care teaching by nursing and staff. On 07/10/2024 patient met all discharge criteria from a surgical standpoint. The patient will have close follow-up with Dr. López in 2 weeks she was instructed to keep the wound clean and dry and change the dressing twice daily as instructed and taught while admitted. Patient was also discharged to home on oral antibiotics. She was instructed to take all of these till complete. She was understanding and agreement to plan. Allergies Vicks Vapo Rub topical ointment Zosyn Procedures none Consults No qualifying data available. Imaging Results and Diagnostics CT OF THE ABDOMEN AND PELVIS WITH CONTRAST07/06/2024 8:16 pm TECHNIQUE: CT of the abdomen and pelvis was performed with the administration of intravenous contrast. Multiplanar reformatted images are provided for review. Automated exposure control, iterative reconstruction, and/or weight based adjustment of the mA/kV was utilized to reduce the radiation dose to as low as reasonably achievable. COMPARISON: CT abdomen pelvis 06/26/2024 HISTORY: ORDERING SYSTEM PROVIDED HISTORY: Reason for Exam: pt had appy removed 4 weeks ago. had stitches removed on Sunday, and had blood coming from wound area today. mot really painful pain FINDINGS: Trace bilateral pleural effusions with adjacent atelectasis. No significant pericardial effusion.. Left kidney is unremarkable. Right-sided mild pelvicaliectasis and proximal to mid ureteric prominence in the visualized part, up to the level of mesenteric inflammation as described below. Nonobstructing right renal calculi. Urinary bladder is partially distended, no hyperdense calculus within. Mild fluid in presacral region. Mild fluid in pelvis. Appendix is surgically absent. Ill-defined peripherally enhancing collection seen at postoperative site in right lower quadrant region, difficult to measure accurately, extends cranially and towards the left side along the mesentery. (Series 3, image 264). Adjacent inflammatory/phlegmonous changes with fat stranding and tethering of small bowel loops. This region is not well delineated from the right mid ureter, which demonstrates proximal mild dilatation. There is mid grade dilatation of proximal to mid small bowel loops with air-fluid levels within. Uterine fundus is closely related to the above described inflammatory changes/abscess. Another smaller peripherally enhancing abscess measuring 2.6 x 1.2 cm seen in right hepatic subcapsular region at lower pole of right lobe of liver with adjacent fascial thickening and inflammation (series 3, image 138). Postoperative changes of laparotomy in midline anterior abdominal wall with a peripherally hyperdense collection measuring 1.5 x 3 2 cm. Linear hyperdensity within this collection, suspect surgical material/suture. Adjacent air foci are likely related to external communication. Mild mesenteric and retroperitoneal lymphadenopathy, likely reactive. IMPRESSION: Postoperative side inflammatory/phlegmonous changes with surgical site and intra-abdominal fluid collections extending cranially along the mesentery, concerning for abscess. There is tethering of bowel loops in this region with small bowel obstruction. The mid right ureter and uterine fundus and right adnexa are not well delineated from this process. Smaller right hepatic subcapsular fluid collection/abscess. Trace bilateral pleural effusions and adjacent atelectasis are stable. I have personally reviewed the images of this examination and agree with the resident's findings and interpretation. Subjective Nursing reports no overnight events. Patient reporting some mild abdominal pain with wound care. She denies any nausea, vomiting, fever or chills. She is tolerating diet without difficulty. Physical Exam Vitals and Measurements T: 36.9 C (Oral) TMIN: 36.9 C (Oral) TMAX: 37.2 C (Oral) HR: 99 RR: 18 BP: 118/82 SpO2: 94% Weight Dosing Weight: 103.4 kg (07/07/24) General: Awake and alert and in no apparent distress. Able to answer questions and speak in full sentences. Supine in bed. Sitting upright. HEENT: Mucous membranes moist and pink. Sclerae anicteric. PERRLA. NG tube present. Heart: Regular rate and rhythm. S1-S2 are present. Lungs: Chest rise symmetrical. Respirations unlabored. Clear to auscultation bilaterally. Abdomen: Soft and nontender. Nondistended. No guarding or rigidity. Bowel sounds 4 quadrants. Abdominal incision with mild tenderness to the open portion of her midline incision. Wound bed beefy red and clean. Extremities: Freely moving. Skin: Normal color for ethnicity. No pallor or diaphoresis. No jaundice. Psychiatric: Calm and cooperative. Pending Labs and Studies n/a Code Status Code Status - Ordered -- 07/08/24 6:38:00 EDT, Full Code, Constant Order Admission Date 07/07/2024 Discharge Date 07/10/2024 Patient Instructions Please take all oral antibiotics till complete. Cleanse midline incision with soap and water and pat dry. Wound care to open lower midline incision with wet-to-dry twice daily. You should take Tylenol and Advil as needed for pain and discomfort. No further narcotics was provided at discharge. Medications Unchanged cefdinir (cefdinir 300 mg oral capsule)1 cap by mouth every 12 hours for 14 Days. Refills: 0. ibuprofen (ibuprofen 600 mg oral tablet)1 tab(s) by mouth every 6 hours for 14 Days. Take with food or milk.. Refills: 0. metroNIDAZOLE (metroNIDAZOLE 500 mg oral tablet)1 tab(s) by mouth two (2) times a day for 14 Days. Refills: 0. oxyCODONE (oxyCODONE 5 mg oral tablet ( IMMEDIATE release ))1 tab(s) by mouth every 6 hours as needed as needed for pain. Follow Up Follow Up with Post 1XRN Follow Up Discharge visit scheduled for 07-11-24 b/t 8a-12p Follow Up with NOT PHYSICIAN When:Within 1-2 days Follow Up with MICHAEL LÓPEZ MD, Surgery When:08/08/2024 10:30 AM EDT Where:[address] [address]- [phone] Follow Up Appointments See above Follow Up Labs/Studies Discharge Labs No Follow-up Labs Discharge Studies No Follow-up Studies Discharge Diet No changes Discharge Activity Slowly return back to your daily activity, no lifting anything greater than 10 to 15 pounds. Condition on Discharge Stable alert and oriented x 4 ambulating in an upright steady gait Discharge Disposition Discharged to home Information Provided To Nurse and patient Time Spent 20 minutes This document was dictated with voice recognition software and may contain grammatical errors Digitally Signed by SAMIA JOHNSON on 07/10/2024 08:47 AM [facility] 07-10-2024 Note Discharge Instructions Thank you for allowing [place] to assist you with your healthcare needs. The following is important discharge information regarding your hospital visit. Your Care Team PHYSICIAN, NOT RECORDED Your Diagnosis Surgical site infection What to do next Scheduled Follow-Up Appointments Appointment Type When With Where Contact Information StatusGS OV Post Op 08/08/2024 10:30 AM EDT MICHAEL LÓPEZ MD [facility] Confirmed Follow Up Appointments Follow Up with Post 1XRN Discharge Follow Up Home Visit scheduled for 07-14-24 b/t 12p-4p Follow Up with NOT PHYSICIAN When:Within 1-2 days Follow Up with MICHAEL LÓPEZ MD, Surgery When:08/08/2024 10:30 AM EDT Where:[address] [address]- [phone] The Following Activity and Diet Have Been Ordered for You Discharge Activity - Ordered -- May Shower, You may shower. No strenuous activity., 07/10/24 9:26:00 EDT Discharge Driving Restrictions - Ordered -- * Other, specify in special instructions, No driving if taking narcotics, 07/10/24 9:26:00 EDT Discharge Diet - Ordered -- Type of Diet: Regular, 07/10/24 9:26:00 EDT The Following Equipment Has Been Ordered for You Discharge Home Equipment Discharge Wound Care - Ordered -- Wet-to-dry dressing and cover with dry sterile dressing twice daily and as needed, 07/10/24::00 EDT Discharge Wound Care - Ordered -- Cleanse midline incision with soap and water and pat dry., 07/10/24 9:26:00 EDT The Following Treatments Have Been Ordered for You Discharge Labs No qualifying data available. Discharge Radiology No qualifying data available. Other Therapies No qualifying data available. Post Acute Orders No qualifying data available. Someone Will Contact You Regarding These Home Health Referrals No home referrals have been ordered for you. No one will call you. Allergies Vicks Vapo Rub topical ointment Zosyn Medications Please ask your primary doctor or pharmacist before taking any other medication not listed, including over the counter drugs, herbal medications, vitamins and or supplements as they may interact with your home medications. What How Much When Instructions Last Dose New ciprofloxacin (Cipro 500 mg oral tablet) 1 tab(s) by mouth Every 12 hours Duration: 10 Days Pickup at [facility] Changed metroNIDAZOLE (metroNIDAZOLE 500 mg oral tablet) 1 tab(s) by mouth Every 8 hours Duration: 10 Days Pickup at [facility] [address] Unchanged ibuprofen (ibuprofen 600 mg oral tablet) 1 tab(s) by mouth Every 6 hours Duration: 14 Days Take with food or milk. Unchanged oxyCODONE (oxyCODONE 5 mg oral tablet ( IMMEDIATE release )) 1 tab(s) by mouth Every 6 hours as needed for as needed for pain Pharmacy Information [facility]: [id number] [place], [place] [id number] [phone] What How Much When Comments Stop Taking cefdinir (cefdinir 300 mg oral capsule) 1 cap by mouth Every 12 hours Duration: 14 Days Please take this list to your next doctor s visit. Bring all medications you take, including over the counter medications, herbals and other supplements with you to your doctor s visit. Patients and families are reminded to discard old lists and to update any records with all medication providers or retail pharmacies. Medication Leaflets ibuprofen (EYE bue PROE fen) Advil, Advil Migraine, Children's Advil, Children's Ibuprofen De [place], Children's Motrin, Genpril, IBU, Ibuprohm, Motrin Childrens, Motrin IB, Motrin IB Migraine, Motrin Drops, Motrin Migraine Pain, Proprinal, Wal-Profen What is the most important information I should know about ibuprofen? Ibuprofen can increase your risk of fatal heart attack or stroke. Do not use this medicine just before or after heart bypass surgery (coronary artery bypass graft, or CABG). Ibuprofen may also cause stomach or intestinal bleeding, which can be fatal. What is ibuprofen? Ibuprofen is a nonsteroidal anti-inflammatory drug (NSAID). Ibuprofen is used to reduce fever and treat pain or inflammation caused by many conditions such as headache, toothache, back pain, arthritis, menstrual cramps, or minor injury. This medicine is used in adults and children who are at least 6 months old. Ibuprofen may also be used for purposes not listed in this medication guide. What should I discuss with my healthcare provider before taking ibuprofen? Ibuprofen can increase your risk of fatal heart attack or stroke, even if you don't have any risk factors. Do not use this medicine just before or after heart bypass surgery (coronary artery bypass graft, or CABG). Ibuprofen may also cause stomach or intestinal bleeding, which can be fatal. These conditions can occur without warning while you are using ibuprofen, especially in older adults. You should not use ibuprofen if you are allergic to it, or if you have ever had an asthma attack or severe allergic reaction after taking aspirin or an NSAID. Ask a doctor or pharmacist if this medicine is safe to use if you have ever had: heart disease, high blood pressure, high cholesterol, diabetes, or if you smoke; a heart attack, stroke, or blood clot; stomach ulcers or bleeding; liver or kidney disease; asthma; or if you take aspirin to prevent heart attack or stroke. Ask a doctor before using this medicine if you are or . If you are , you should not take ibuprofen unless your doctor tells you to. Taking an NSAID during the last 20 weeks of can cause serious heart or kidney problems in the unborn baby and possible complications with your . Do not give ibuprofen to a child younger than 6 months old without the advice of a doctor. How should I take ibuprofen? Use exactly as directed on the label, or as prescribed by your doctor. Use the lowest dose that is effective in treating your condition. An ibuprofen overdose can damage your stomach or intestines. The maximum amount of ibuprofen for adults is 800 milligrams per dose or 3200 mg per day (4 maximum doses). A child's dose of ibuprofen is based on the age and weight of the child. Carefully follow the dosing instructions provided with children's ibuprofen for the age and weight of your child. Ask a doctor or pharmacist if you have questions. Take ibuprofen with food or milk to lessen stomach upset. Shake the oral suspension (liquid) before you measure a dose. Use the dosing syringe provided, or use a medicine dose-measuring device (not a kitchen spoon). You must chew the chewable tablet before you swallow it. Store at room temperature away from moisture and heat. Do not allow the liquid medicine to freeze. What happens if I miss a dose? Since ibuprofen is used when needed, you may not be on a dosing schedule. Skip any missed dose if it's almost time for your next dose. Do not use two doses at one time. What happens if I overdose? Seek emergency medical attention or call the Poison Help line at . Overdose symptoms may include nausea, vomiting, stomach pain, drowsiness, black or bloody stools, coughing up blood, shallow breathing, fainting, or coma. What should I avoid while taking ibuprofen? Ask a doctor or pharmacist before using other medicines for pain, fever, swelling, or cold/flu symptoms. They may contain ingredients similar to ibuprofen (such as aspirin, ibuprofen, ketoprofen, or naproxen). Avoid taking aspirin unless your doctor tells you to. If you also take aspirin to prevent stroke or heart attack, taking ibuprofen can make aspirin less effective in protecting your heart and blood vessels. If you take both medicines, take ibuprofen at least 8 hours before or 30 minutes after you take aspirin (non-enteric coated form). Avoid drinking alcohol. It may increase your risk of stomach bleeding. What are the possible side effects of ibuprofen? Get emergency medical help if you have signs of an allergic reaction (hives, difficult breathing, swelling in your face or throat) or a severe skin reaction (fever, sore throat, burning eyes, skin pain, red or purple skin rash with blistering and peeling). Get emergency medical help if you have signs of a heart attack or stroke: chest pain spreading to your jaw or shoulder, sudden numbness or weakness on one side of the body, slurred speech, leg swelling, feeling short of breath. Stop using ibuprofen and call your doctor at once if you have: changes in your vision; shortness of breath (even with mild exertion); swelling or rapid weight gain; a skin rash, no matter how mild; signs of stomach bleeding--bloody or tarry stools, coughing up blood or vomit that looks like coffee grounds; liver problems--nausea, upper stomach pain, itching, tired feeling, flu-like symptoms, loss of appetite, dark urine, josefina-colored stools, jaundice (yellowing of the skin or eyes); low red blood cells (anemia)--pale skin, feeling light-headed or short of breath, rapid heart rate, trouble concentrating; or kidney problems--little or no urinating, painful or difficult urination, swelling in your feet or ankles, feeling tired or short of breath. Common side effects may include: nausea, vomiting, gas; bleeding; or dizziness, headache. This is not a complete list of side effects and others may occur. Call your doctor for medical advice about side effects. You may report side effects to FDA at 9-487-ZTI-8189. What other drugs will affect ibuprofen? Ask your doctor before using ibuprofen if you take an antidepressant. Taking certain antidepressants with an NSAID may cause you to bruise or bleed easily. Ask a doctor or pharmacist before using ibuprofen with any other medications, especially: cyclosporine; lithium; methotrexate; a blood thinner (warfarin, Coumadin, Jantoven); heart or blood pressure medication, including a diuretic or 'water pill'; or steroid medicine (such as prednisone). This list is not complete. Other drugs may affect ibuprofen, including prescription and owql-gkl-alxompk medicines, vitamins, and herbal products. Not all possible drug interactions are listed here. Where can I get more information? Your pharmacist can provide more information about ibuprofen. Remember, keep this and all other medicines out of the reach of children, never share your medicines with others, and use this medication only for the indication prescribed. Every effort has been made to ensure that the information provided by [employer]. ('[employer]') is accurate, up-to-date, and complete, but no guarantee is made to that effect. Drug information contained herein may be time sensitive. [employer] information has been compiled for use by healthcare practitioners and consumers in the [place] and therefore [employer] does not warrant that uses outside of the [place] are appropriate, unless specifically indicated otherwise. [employer] drug information does not endorse drugs, diagnose patients or recommend therapy. [employer] drug information is an informational resource designed to assist licensed healthcare practitioners in caring for their patients and/or to serve consumers viewing this service as a supplement to, and not a substitute for, the expertise, skill, knowledge and judgment of healthcare practitioners. The absence of a warning for a given drug or drug combination in no way should be construed to indicate that the drug or drug combination is safe, effective or appropriate for any given patient. [employer] does not assume any responsibility for any aspect of healthcare administered with the aid of information [employer] provides. The information contained herein is not intended to cover all possible uses, directions, precautions, warnings, drug interactions, allergic reactions, or adverse effects. If you have questions about the drugs you are taking, check with your doctor, nurse or pharmacist. Copyright 8004-1391 [employer]. Version: 24.02. Revision Date: 11/01/2022. metronidazole (oral/injection) (MET cedric ahn) [place] What is the most important information I should know about metronidazole? Do not drink alcohol or consume foods or medicines that contain propylene glycol while you are taking metronidazole and for at least 3 days after you stop taking it. Metronidazole has caused cancer in animal studies. However, it is not known whether this would occur in humans. Ask your doctor about your risk. What is metronidazole? Metronidazole is used in adults to prevent and treat certain bacterial infections. Metronidazole is also used in adults to treat trichomoniasis, (a sexually transmitted infection caused by a parasite). Metronidazole is also used to treat amebiasis (an infection caused by a parasite). Metronidazole may also be used for purposes not listed in this medication guide. What should I discuss with my healthcare provider before using metronidazole? You should not use this medicine if you are allergic to metronidazole, or other nitroimidazole medicine, such as secnidazole, or tinidazole, or if: have a genetic disorder called Cockayne Syndrome; you drank alcohol in the past 3 days; you consumed foods or medicines that contain propylene glycol in the past 3 days; or you took disulfiram (Antabuse) within the past 14 days. Tell your doctor if you have ever had: a heart rhythm disorder; a stomach or intestinal disease such as Crohn's disease; a blood cell disorder such as anemia (lack of red blood cells) or low white blood cell (WBC) counts; a fungal infection anywhere in your body; a nerve disorder; or liver or kidney disease. Metronidazole has caused cancer in animal studies. However, it is not known whether this would occur in humans. Ask your doctor about your risk. May harm an unborn baby. Do not use metronidazole to treat trichomoniasis during the first trimester of . Tell your doctor if you are or plan to become . You should not breastfeed within 48 hours after using metronidazole. If you use a breast pump during this time, throw out the milk and do not feed it to your baby. How should I use metronidazole? Follow all directions on your prescription label and read all medication guides or instruction sheets. Use the medicine exactly as directed. Metronidazole oral is taken by mouth. Metronidazole injection is given as an infusion into a vein. A healthcare provider will give you this injection if you are unable to take the medicine by mouth. Shake the oral suspension (liquid). Measure a dose with the supplied measuring device (not a kitchen spoon). If you are treating a vaginal infection, your sexual partner may also need to take metronidazole so you don't become reinfected. Keep using this medicine even if your symptoms quickly improve. Skipping doses could make your infection resistant to medication. Metronidazole will not treat a viral infection (flu or a common cold). Metronidazole will not treat a vaginal yeast infection. You may even develop a new vaginal yeast infection, which may need to be treated with antifungal medication. Tell your doctor if you have symptoms such as itching or discharge during or after treatment with metronidazole. Do not share this medicine with another person, even if they have the same symptoms you have. This medicine can affect the results of certain medical tests. Tell any doctor who treats you that you are using metronidazole. Store tightly closed at room temperature, away from moisture and heat. Do not freeze. Throw the liquid medicine away after 60 days of first opening the bottle, even if there is still medicine left inside. What happens if I miss a dose? Take the medicine as soon as you can, but skip the missed dose if it is almost time for your next dose. Do not take two doses at one time. What happens if I overdose? Seek emergency medical attention or call the Poison Help line at . Overdose symptoms may include nausea, vomiting, or problems with balance or muscle movement. What should I avoid while using metronidazole? While taking metronidazole and for 3 days after your last dose: Do not drink alcohol or consume foods, medicines, or other products that contain alcohol or propylene glycol. You may have unpleasant effects such as headaches, nausea, vomiting, stomach cramps, and warmth or tingling under your skin. What are the possible side effects of metronidazole? Get emergency medical help if you have signs of an allergic reaction (hives, difficult breathing, swelling in your face or throat) or a severe skin reaction (fever, sore throat, burning eyes, skin pain, red or purple skin rash with blistering and peeling). Call your doctor at once if you have: new or worsening symptoms of infection; painful or difficult urination; confusion; a light-headed feeling (like you might pass out); vaginal itching or discharge; or blisters or ulcers in your mouth, red or swollen gums, trouble swallowing. Stop taking the medicine and call your doctor right away if you have neurologic side effects (more likely to occur while taking metronidazole intermediate): numbness, tingling, or burning pain in your hands or feet; hearing problems, hearing loss, or a roaring sound in your ears; vision problems, pain behind your eyes, seeing flashes of light; muscle weakness, problems with speech or coordination; trouble speaking or understanding what is said to you; a seizure; or fever, neck stiffness, and increased sensitivity to light. Common side effects may include: depression, trouble sleeping, feeling irritable; headache, dizziness, weakness; nausea, vomiting, loss of appetite, stomach cramps, upper stomach pain; diarrhea, constipation; unpleasant metallic taste; rash, itching; vaginal itching or discharge, pain during sex; mouth sores; or swollen, red, or 'hairy' tongue. This is not a complete list of side effects and others may occur. Call your doctor for medical advice about side effects. You may report side effects to FDA at 4-872-CSU-3355. What other drugs will affect metronidazole? Sometimes it is not safe to use certain medicines at the same time. Some drugs can affect your blood levels of other drugs you use, which may increase side effects or make the medicines less effective. Metronidazole can cause a serious heart problem. Your risk may be higher if you also use certain other medicines for infections, asthma, heart problems, high blood pressure, depression, mental illness, cancer, malaria, or HIV. Tell your doctor about all your current medicines. Many drugs can affect metronidazole, especially: an antidepressant; asthma medication; busulfan or other cancer medicine; heart or blood pressure medication; lithium or other antipsychotic medicine; medicine to treat malaria, HIV, or other infection; or a blood thinner--warfarin, Coumadin, Jantoven. This list is not complete and many other drugs may affect metronidazole. This includes prescription and aclk-vns-jymkyxh medicines, vitamins, and herbal products. Not all possible drug interactions are listed here. Where can I get more information? Your doctor or pharmacist can provide more information about metronidazole. Remember, keep this and all other medicines out of the reach of children, never share your medicines with others, and use this medication only for the indication prescribed. Every effort has been made to ensure that the information provided by [employer]. ('[employer]') is accurate, up-to-date, and complete, but no guarantee is made to that effect. Drug information contained herein may be time sensitive. [employer] information has been compiled for use by healthcare practitioners and consumers in the [place] and therefore [employer] does not warrant that uses outside of the [place] are appropriate, unless specifically indicated otherwise. [employer] drug information does not endorse drugs, diagnose patients or recommend therapy. [employer] drug information is an informational resource designed to assist licensed healthcare practitioners in caring for their patients and/or to serve consumers viewing this service as a supplement to, and not a substitute for, the expertise, skill, knowledge and judgment of healthcare practitioners. The absence of a warning for a given drug or drug combination in no way should be construed to indicate that the drug or drug combination is safe, effective or appropriate for any given patient. [employer] does not assume any responsibility for any aspect of healthcare administered with the aid of information [employer] provides. The information contained herein is not intended to cover all possible uses, directions, precautions, warnings, drug interactions, allergic reactions, or adverse effects. If you have questions about the drugs you are taking, check with your doctor, nurse or pharmacist. Copyright 2175-7678 [employer]. Version: .. Revision Date: 05/30/2024. Education Materials Abdominal Pain, Adult Many things can cause belly (abdominal) pain. Most times, belly pain is not dangerous. Many cases of belly pain can be watched and treated at home. Sometimes, though, belly pain is serious. Your doctor will try to find the cause of your belly pain. Follow these instructions at home: Medicines Take zonq-aql-zlwospd and prescription medicines only as told by your doctor. Do not take medicines that help you poop (laxatives) unless told by your doctor. General instructions Watch your belly pain for any changes. Drink enough fluid to keep your pee (urine) pale yellow. Keep all follow-up visits as told by your doctor. This is important. Contact a doctor if: Your belly pain changes or gets worse. You are not hungry, or you lose weight without trying. You are having trouble pooping (constipated) or have watery poop (diarrhea) for more than 2 3 days. You have pain when you pee or poop. Your belly pain wakes you up at night. Your pain gets worse with meals, after eating, or with certain foods. You are vomiting and cannot keep anything down. You have a fever. You have blood in your pee. Get help right away if: Your pain does not go away as soon as your doctor says it should. You cannot stop vomiting. Your pain is only in areas of your belly, such as the right side or the left lower part of the belly. You have bloody or black poop, or poop that looks like tar. You have very bad pain, cramping, or bloating in your belly. You have signs of not having enough fluid or water in your body (dehydration), such as: ? Dark pee, very little pee, or no pee. ? Cracked lips. ? Dry mouth. ? Sunken eyes. ? Sleepiness. ? Weakness. You have trouble breathing or chest pain. Summary Many cases of belly pain can be watched and treated at home. Watch your belly pain for any changes. Take gbul-dqw-adbtzrr and prescription medicines only as told by your doctor. Contact a doctor if your belly pain changes or gets worse. Get help right away if you have very bad pain, cramping, or bloating in your belly. This information is not intended to replace advice given to you by your health care provider. Make sure you discuss any questions you have with your health care provider. Document Released: 07/17/2008 Document Revised: 06/09/2019 Document Reviewed: 06/09/2019 Elsevier Patient Education 2020 [employer] Additional Information VACCINATE! IT SAVES LIVES! Members of the community who have not yet received the COVID-19 vaccine and would like to receive it can visit one of [facility] vaccine clinics. There are many vaccine clinic locations within the [facility]. For locations and available times, please visit https://gettheshot.coronavirus.[place].gov/. It is important to note that some COVID mobile vaccine clinics are held outdoors and may be canceled in rainy or stormy conditions. To learn more about pediatric vaccinations (ages 5-11), we invite you to visit the [facility] webpage. https://www.[employer].org/pa [email or web address]-Wqklh-Rogogurzsen-Freque sjxv-[email or web address]-Rlilabpij.html To learn more about the COVID-19 vaccine, we invite you to visit the CDC website for a list of frequently asked questions.https://www.cdc.gov/cor onavirus/2019-ncov/vaccines/faq.h tml [facility] Patient Portal Access Instructions: Stay connected with your healthcare team and access your personal medical information anytime with the [facility] Patient Portal. Please follow the directions below to create your [facility] account: 1.Access the email account you provided upon registration to the hospital/physician office.2.Look for an invitation email from [facility].3.Open the email and access the invitation link: Accept Invitation to [facility].4.Fill in the required wheeler to create your account. To access your account, visit [email or web address]. Click the blue button labeled Access Patient Portal and then log in with the username and password that you created in the steps above. You will be able to view your test results, lab results, a summary of your visits, upcoming appointments and more. There is also a convenient messaging option where you can send secure messages to your provider. In addition, you will have the ability to download any documents or summaries to your computer and/or send the information securely to a physician. Remember that your healthcare information is confidential, so carefully consider who you will allow to register on the [place] [facility] Patient Portal for access to your information. You can also access the [facility] on the [place] [facility]teo. Simply click on Patient Portal and then log into your account. If you would like to receive a full copy of your medical records, please contact the [facility] Medical Records Department by calling [phone], Sunday through Sunday between 8 a.m. and 4:30 p.m. HOW TO SAFELY DISPOSE OF PRESCRIPTION MEDICATIONS Please use one of the following methods to safely dispose of your unused medications. 1.Use a drug disposal kit: the drug disposal pouch allows you to safely discard your old and unused drugs. Ask your nurse to give you one when you are discharged.2.Visit a local take-back location: Many local pharmacies and police departments have programs that collect old and unwanted prescription drugs. Call your local pharmacy or go to http://Yhat.Applimation/2R4Km0d to find one close to you.3.Make use of household items: Use cat litter or old coffee grounds to dispose medications if other options are not available. Mix your drugs with these household products, seal them in an airtight container and throw it into the garbage. Call [facility]: [phone] to be sure your drugs can be disposed of in this way. Some medicines may require a different approach.4.Never flush your medications down the toilet. IF YOU HAVE BEEN PRESCRIBED AN OPIOID FOR PAIN If you have been prescribed an opioid (such as hydrocodone, oxycodone or morphine), it is critical to understand the possible side effects and risks of opioid pain medications. Even when taken as directed, opioids can have several side effects including: Tolerance, meaning you might need to take more of a medication for the same pain relief. Nausea, vomiting and/or constipation. Sleepiness, dizziness, dry mouth, confusion, depression or itching. Physical dependence, meaning you have withdrawal symptoms when a medication is stopped, can develop within a few days. KNOW YOUR RESPONSIBILITIES It is important to know exactly how much and how often to take the opioid pain medications you are prescribed. Never take opioids in higher amounts or more often than prescribed. Do not combine opioids with alcohol or other drugs that cause drowsiness, such as benzodiazepines, also known as benzos, including diazepam and alprazolam, muscle relaxants or sleep aids. Never sell or share prescription opioids. This is illegal. Store opioids in a secure place and out of reach of others (including children, family, friends and visitors). The last page of this document has been signed and retained as a CHART COPY. Signatures Patient Education Materials Abdominal Pain, Adult, Bwut-tl-Gieo Medication Leaflets ibuprofen, metronidazole (oral/injection) My discharge plan and instructions have been reviewed and explained to me and I,KIM NGUYEN understand my current condition and have read and understand these discharge instructions. I have received a written copy of the plan/instructions. If I have questions, I am aware that I should contact my doctor. 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 MICRO - Microbiology PROCEDURE: Culture Wound Aerobic with Gram Stain [*1] SOURCE: Incision BODY SITE: Abdominal Wall COLLECTED DATE/TIME: 07/06/2024 18:50 EDT RECEIVED DATE/TIME: 07/07/2024 20:00 EDT START DATE/TIME: 07/07/2024 20:00 EDT FREE TEXT SOURCE: FINAL REPORTS Final Report [] Verified Date/Time/Personnel: 07/10/2024 09:42 EDT Few Escherichia coli Few Beta Hemolytic Streptococci, Group C Sensitivity testing is not recommended for one of the following reasons: 1. Established susceptibility patterns are available or 2. Interpretative criteria are not available. Few normal skin jessica present. Sensitivity testing not indicated. PRELIMINARY REPORTS Preliminary Report [] Verified Date/Time/Personnel: 07/09/2024 09:46 EDT Few Escherichia coli LISA to follow Few normal skin jessica present. Sensitivity testing not indicated. Preliminary Report [] Verified Date/Time/Personnel: 07/08/2024 08:48 EDT Culture results pending. STAINS GS [] Verified Date/Time/Personnel: 07/08/2024 00:58 EDT 4+ Polymorphonuclear cells Rare Gram Positive Cocci Rare Gram Negative Rods SUSCEPTIBILITY RESULTS Escherichia coli Antibiotic LISA Dilut LISA Inter Amikacin <=16 Susceptible Amoxicillin/ <=8/4 Susceptible Clavulanate Ampicillin <=8 Susceptible Ampicillin/ <=4/2 Susceptible Sulbactam Aztreonam <=4 Susceptible Cefazolin <=2 Susceptible Cefepime <=2 Susceptible Ceftolozane/ <=2 Susceptible Tazobactam Ceftriaxone <=1 Susceptible Ciprofloxacin <=0.25 Susceptible Ertapenem <=0.5 Susceptible Gentamicin <=2 Susceptible ID Panel Not Not Applicable Applicable Imipenem <=1 Susceptible Levofloxacin <=0.5 Susceptible Meropenem <=1 Susceptible Minocycline <=4 Susceptible MICRO - Microbiology SUSCEPTIBILITY RESULTS Escherichia coli Antibiotic LISA Dilut LISA Inter Moxifloxacin <=2 Susceptible Piperacillin/ <=8 Susceptible Tazobactam Tetracycline <=4 Susceptible Trimethoprim/ <=0.5/9.5 Susceptible Sulfa Performing Locations *1: This test was performed at: [facility], [address] [place] [address], [id number] , [facility] 07-10-2024 Discharge summary Date of Service 07/10/2024 Discharge Diagnosis 1 - Surgical site infection (T81.49XA - ICD-10-CM) Hospital Course This patient is a 19-year-old female who underwent an open appendectomy on 06/17/1907/01/2024 for perforated appendicitis. Patient was seen in the office on 07/04/2024 where she had ros removed. Patient then returned back to [place] emergency room concerned that her wound had opened up and was larger. Initial workup in [place] emergency room patient did undergo a CT scan of abdomen pelvis that showed concern for fluid collections that were potentially concerning for abscesses. Given these findings he was transferred to [facility] for definitive care and treatment. A consult to interventional radiology was made for possible drain placement. But after review of CT scan it was decided that there was no drainable fluid collection. The patient continued to have wound care teaching by nursing and staff. On 07/10/2024 patient met all discharge criteria from a surgical standpoint. The patient will have close follow-up with Dr. López in 2 weeks she was instructed to keep the wound clean and dry and change the dressing twice daily as instructed and taught while admitted. Patient was also discharged to home on oral antibiotics. She was instructed to take all of these till complete. She was understanding and agreement to plan. Allergies Vicks Vapo Rub topical ointment Zosyn Procedures none Consults No qualifying data available. Imaging Results and Diagnostics CT OF THE ABDOMEN AND PELVIS WITH CONTRAST07/06/2024 8:16 pm TECHNIQUE: CT of the abdomen and pelvis was performed with the administration of intravenous contrast. Multiplanar reformatted images are provided for review. Automated exposure control, iterative reconstruction, and/or weight based adjustment of the mA/kV was utilized to reduce the radiation dose to as low as reasonably achievable. COMPARISON: CT abdomen pelvis 06/26/2024 HISTORY: ORDERING SYSTEM PROVIDED HISTORY: Reason for Exam: pt had appy removed 4 weeks ago. had stitches removed on Sunday, and had blood coming from wound area today. mot really painful pain FINDINGS: Trace bilateral pleural effusions with adjacent atelectasis. No significant pericardial effusion.. Left kidney is unremarkable. Right-sided mild pelvicaliectasis and proximal to mid ureteric prominence in the visualized part, up to the level of mesenteric inflammation as described below. Nonobstructing right renal calculi. Urinary bladder is partially distended, no hyperdense calculus within. Mild fluid in presacral region. Mild fluid in pelvis. Appendix is surgically absent. Ill-defined peripherally enhancing collection seen at postoperative site in right lower quadrant region, difficult to measure accurately, extends cranially and towards the left side along the mesentery. (Series 3, image 264). Adjacent inflammatory/phlegmonous changes with fat stranding and tethering of small bowel loops. This region is not well delineated from the right mid ureter, which demonstrates proximal mild dilatation. There is mid grade dilatation of proximal to mid small bowel loops with air-fluid levels within. Uterine fundus is closely related to the above described inflammatory changes/abscess. Another smaller peripherally enhancing abscess measuring 2.6 x 1.2 cm seen in right hepatic subcapsular region at lower pole of right lobe of liver with adjacent fascial thickening and inflammation (series 3, image 138). Postoperative changes of laparotomy in midline anterior abdominal wall with a peripherally hyperdense collection measuring 1.5 x 3 2 cm. Linear hyperdensity within this collection, suspect surgical material/suture. Adjacent air foci are likely related to external communication. Mild mesenteric and retroperitoneal lymphadenopathy, likely reactive. IMPRESSION: Postoperative side inflammatory/phlegmonous changes with surgical site and intra-abdominal fluid collections extending cranially along the mesentery, concerning for abscess. There is tethering of bowel loops in this region with small bowel obstruction. The mid right ureter and uterine fundus and right adnexa are not well delineated from this process. Smaller right hepatic subcapsular fluid collection/abscess. Trace bilateral pleural effusions and adjacent atelectasis are stable. I have personally reviewed the images of this examination and agree with the resident's findings and interpretation. Subjective Nursing reports no overnight events. Patient reporting some mild abdominal pain with wound care. She denies any nausea, vomiting, fever or chills. She is tolerating diet without difficulty. Physical Exam Vitals and Measurements T: 36.9 C (Oral) TMIN: 36.9 C (Oral) TMAX: 37.2 C (Oral) HR: 99 RR: 18 BP: 118/82 SpO2: 94% Weight Dosing Weight: 103.4 kg (07/07/24) General: Awake and alert and in no apparent distress. Able to answer questions and speak in full sentences. Supine in bed. Sitting upright. HEENT: Mucous membranes moist and pink. Sclerae anicteric. PERRLA. NG tube present. Heart: Regular rate and rhythm. S1-S2 are present. Lungs: Chest rise symmetrical. Respirations unlabored. Clear to auscultation bilaterally. Abdomen: Soft and nontender. Nondistended. No guarding or rigidity. Bowel sounds 4 quadrants. Abdominal incision with mild tenderness to the open portion of her midline incision. Wound bed beefy red and clean. Extremities: Freely moving. Skin: Normal color for ethnicity. No pallor or diaphoresis. No jaundice. Psychiatric: Calm and cooperative. Pending Labs and Studies n/a Code Status Code Status - Ordered -- 07/08/24 6:38:00 EDT, Full Code, Constant Order Admission Date 07/07/2024 Discharge Date 07/10/2024 Patient Instructions Please take all oral antibiotics till complete. Cleanse midline incision with soap and water and pat dry. Wound care to open lower midline incision with wet-to-dry twice daily. You should take Tylenol and Advil as needed for pain and discomfort. No further narcotics was provided at discharge. Medications Unchanged cefdinir (cefdinir 300 mg oral capsule)1 cap by mouth every 12 hours for 14 Days. Refills: 0. ibuprofen (ibuprofen 600 mg oral tablet)1 tab(s) by mouth every 6 hours for 14 Days. Take with food or milk.. Refills: 0. metroNIDAZOLE (metroNIDAZOLE 500 mg oral tablet)1 tab(s) by mouth two (2) times a day for 14 Days. Refills: 0. oxyCODONE (oxyCODONE 5 mg oral tablet ( IMMEDIATE release ))1 tab(s) by mouth every 6 hours as needed as needed for pain. Follow Up Follow Up with Post 1XRN Follow Up Discharge visit scheduled for 07-11-24 b/t 8a-12p Follow Up with NOT PHYSICIAN When:Within 1-2 days Follow Up with MICHAEL LÓPEZ MD, Surgery When:08/08/2024 10:30 AM EDT Where:[address] [facility] [address] [facility] [place] [address]- [phone] Follow Up Appointments See above Follow Up Labs/Studies Discharge Labs No Follow-up Labs Discharge Studies No Follow-up Studies Discharge Diet No changes Discharge Activity Slowly return back to your daily activity, no lifting anything greater than 10 to 15 pounds. Condition on Discharge Stable alert and oriented x 4 ambulating in an upright steady gait Discharge Disposition Discharged to home Information Provided To Nurse and patient Time Spent 20 minutes This document was dictated with voice recognition software and may contain grammatical errors Digitally Signed by SAMIA JOHNSON on 07/10/2024 08:47 AM [facility] 07-09-2024 Surgery Hospital Progress note Date of Service 07/09/2024 Chief Complaint Tenderness at wound site Subjective Examination patient she is seen resting supine in bed, no acute distress. Patient reporting mild discomfort to her abdomen at her surgical site. Patient is tolerating diet without difficulty. She has no other concerns at this time. Objective Vitals and Measurements T: 36.8 C (Oral) TMIN: 36.3 C (Oral) TMAX: 38 C (Oral) HR: 95 RR: 18 BP: 100/70 SpO2: 95% Intake and Output 7AM Yesterday to 7AM Today Intake and Output (Last 24 hours) Intake Administration Information 800.00 Oral Intake 0.00 Output Urine Voided 0.00 Stool Count 0.00 Urine Count 2.00 Total Summary Total Intake 800.00 Total Output 0.00 Fluid Balance 800.00 Physical Exam General: Awake and alert and in no apparent distress. Able to answer questions and speak in full sentences. Supine in bed. Sitting upright. HEENT: Mucous membranes moist and pink. Sclerae anicteric. PERRLA. NG tube present. Heart: Regular rate and rhythm. S1-S2 are present. Lungs: Chest rise symmetrical. Respirations unlabored. Clear to auscultation bilaterally. Abdomen: Soft and nontender. Nondistended. No guarding or rigidity. Bowel sounds 4 quadrants. Abdominal incision with mild tenderness to the open portion of her midline incision. Wound bed clean with very little purulent drainage noted. Extremities: Freely moving. Skin: Normal color for ethnicity. No pallor or diaphoresis. No jaundice. Psychiatric: Calm and cooperative. Weight Dosing Weight: 103.4 kg (07/07/24) Medications Medications (10) Active Scheduled: (2) ciprofloxacin PMX 400 mg 200 mL, IV Piggyback, q12hr metronidazole PMX 500 mg 100 mL, IV Piggyback, q8hr Continuous: (1) NS (0.9% nacl) 1,000 mL 1,000 mL, Intravenous, 100 mL/hr PRN: (7) acetaminophen 325 mg Tablet 650 mg 2 tab(s), Oral, q4h HYDROmorphone 0.5 mg/0.5 mL syringe 0.5 mg 0.5 mL, IV Push, q3h morphine 2 mg/mL 1 mL syringe 2 mg 1 mL, IV Push, q3h ondansetron 2 mg/ 1 mL 2 mL INJ 4 mg 2 mL, IV Push, q4h oxyCODONE 10 mg Tab (Immediate Release) 10 mg 1 tab(s), Oral, q4h oxycodone 5 mg tablet (immediate release) 5 mg 1 tab(s), Oral, q4h prochlorperazine 10 mg/2 mL vial 5 mg 1 mL, IV Push, q6h Lab Results 07/09 03:56 WBC: 9.4 Hgb: 9.6 L Hct: 28.4 L Platelet: 523 H 07/08 10:53 WBC: 9.7 Hgb: 10.3 L Hct: 30.5 L Platelet: 496 H Glucose Level: 93 Sodium Level: 143 Potassium Level: 3.7 BUN: <5.0 L Creatinine Lvl (s): 0.54 EKG No qualifying data available. Assessment/Plan This patient is a 19-year-old female admitted to the hospital on 07/07/2024 secondary to concern for an intra-abdominal abscess. Patient with a known surgical site infection status post open appendectomy on 06/16/2024 for perforated appendicitis. IR drainage has been ordered due to intra abdominal fluid collection seen on CT scan findings concerning for abscess Overall the patient remains hemodynamically stable. Vital signs, laboratory data and I/O have been reviewed. Plan: - Continue with wound care as ordered - Patient encouraged to mobilize, cough and deep breathe and use incentive spirometry - Continue with broad-spectrum IV antibiotics - IR drain has been ordered and is pending - DVT prophylaxis as ordered Case has been discussed with Dr. López. Please see his addendum to follow. This document was dictated with voice recognition software and may contain grammatical errors Digitally Signed by SAMIA JOHNSON on 07/09/2024 08:14 AM [facility] 07-09-2024 Surgery Hospital Progress note Date of Service 07/09/2024 Chief Complaint Tenderness at wound site Subjective Examination patient she is seen resting supine in bed, no acute distress. Patient reporting mild discomfort to her abdomen at her surgical site. Patient is tolerating diet without difficulty. She has no other concerns at this time. Objective Vitals and Measurements T: 36.8 C (Oral) TMIN: 36.3 C (Oral) TMAX: 38 C (Oral) HR: 95 RR: 18 BP: 100/70 SpO2: 95% Intake and Output 7AM Yesterday to 7AM Today Intake and Output (Last 24 hours) Intake Administration Information 800.00 Oral Intake 0.00 Output Urine Voided 0.00 Stool Count 0.00 Urine Count 2.00 Total Summary Total Intake 800.00 Total Output 0.00 Fluid Balance 800.00 Physical Exam General: Awake and alert and in no apparent distress. Able to answer questions and speak in full sentences. Supine in bed. Sitting upright. HEENT: Mucous membranes moist and pink. Sclerae anicteric. PERRLA. NG tube present. Heart: Regular rate and rhythm. S1-S2 are present. Lungs: Chest rise symmetrical. Respirations unlabored. Clear to auscultation bilaterally. Abdomen: Soft and nontender. Nondistended. No guarding or rigidity. Bowel sounds 4 quadrants. Abdominal incision with mild tenderness to the open portion of her midline incision. Wound bed clean with very little purulent drainage noted. Extremities: Freely moving. Skin: Normal color for ethnicity. No pallor or diaphoresis. No jaundice. Psychiatric: Calm and cooperative. Weight Dosing Weight: 103.4 kg (07/07/24) Medications Medications (10) Active Scheduled: (2) ciprofloxacin PMX 400 mg 200 mL, IV Piggyback, q12hr metronidazole PMX 500 mg 100 mL, IV Piggyback, q8hr Continuous: (1) NS (0.9% nacl) 1,000 mL 1,000 mL, Intravenous, 100 mL/hr PRN: (7) acetaminophen 325 mg Tablet 650 mg 2 tab(s), Oral, q4h HYDROmorphone 0.5 mg/0.5 mL syringe 0.5 mg 0.5 mL, IV Push, q3h morphine 2 mg/mL 1 mL syringe 2 mg 1 mL, IV Push, q3h ondansetron 2 mg/ 1 mL 2 mL INJ 4 mg 2 mL, IV Push, q4h oxyCODONE 10 mg Tab (Immediate Release) 10 mg 1 tab(s), Oral, q4h oxycodone 5 mg tablet (immediate release) 5 mg 1 tab(s), Oral, q4h prochlorperazine 10 mg/2 mL vial 5 mg 1 mL, IV Push, q6h Lab Results 07/09 03:56 WBC: 9.4 Hgb: 9.6 L Hct: 28.4 L Platelet: 523 H 07/08 10:53 WBC: 9.7 Hgb: 10.3 L Hct: 30.5 L Platelet: 496 H Glucose Level: 93 Sodium Level: 143 Potassium Level: 3.7 BUN: <5.0 L Creatinine Lvl (s): 0.54 EKG No qualifying data available. Assessment/Plan This patient is a 19-year-old female admitted to the hospital on 07/07/2024 secondary to concern for an intra-abdominal abscess. Patient with a known surgical site infection status post open appendectomy on 06/16/2024 for perforated appendicitis. IR drainage has been ordered due to intra abdominal fluid collection seen on CT scan findings concerning for abscess Overall the patient remains hemodynamically stable. Vital signs, laboratory data and I/O have been reviewed. Plan: - Continue with wound care as ordered - Patient encouraged to mobilize, cough and deep breathe and use incentive spirometry - Continue with broad-spectrum IV antibiotics - IR drain has been ordered and is pending - DVT prophylaxis as ordered Case has been discussed with Dr. López. Please see his addendum to follow. This document was dictated with voice recognition software and may contain grammatical errors Digitally Signed by SAMIA JOHNSON on 07/09/2024 08:14 AM [facility] 07-08-2024 Surgery Hospital Progress note Date of Service 07/08/2024 Chief Complaint Intra-abdominal abscess Skin abscess Subjective This is a split shared visit between myself and Dr. López Patient seen resting supine in bed with her significant other present at the bedside. She complained of abdominal pain when her wound was assessed. She denied any other concerns. IR drainage has been ordered for today. Objective Vitals and Measurements T: 36.8 C (Oral) TMIN: 36.8 C (Oral) TMAX: 37.4 C (Oral) HR: 96 RR: 18 BP: 134/73 SpO2: 96% Intake and Output 7AM Yesterday to 7AM Today Intake and Output (Last 24 hours) Intake Oral Intake 480.00 Administration Information 1600.00 Output Urine Voided 3.00 Stool Count 1.00 Urine Count 3.00 Emesis Count 0.00 Total Summary Total Intake 0.00 Total Output 3.00 Fluid Balance 2077.00 Physical Exam General: Awake, alert and oriented x4. In no apparent distress. Able to answer questions appropriately and speak in full sentences. Supine in bed. HEENT: Sclera anicteric. Heart: S1 and S2 present. Lungs: Chest rise symmetrical. Respirations unlabored. Lungs clear upon auscultation. Abdomen: Soft and tender near the open portion of her incision site. Nondistended. No rigidity or guarding noted. Packing in place to the open portion of her midline abdominal incision site. Purulent drainage noted. Remaining portion of the incision appears well-healing. Extremities: Freely moving. Psychiatric: Calm and cooperative. Weight Dosing Weight: 103.4 kg (07/07/24) Medications Medications (10) Active Scheduled: (2) ciprofloxacin PMX 400 mg 200 mL, IV Piggyback, q12hr metronidazole PMX 500 mg 100 mL, IV Piggyback, q8hr Continuous: (1) NS (0.9% nacl) 1,000 mL 1,000 mL, Intravenous, 100 mL/hr PRN: (7) acetaminophen 325 mg Tablet 650 mg 2 tab(s), Oral, q4h HYDROmorphone 0.5 mg/0.5 mL syringe 0.5 mg 0.5 mL, IV Push, q3h morphine 2 mg/mL 1 mL syringe 2 mg 1 mL, IV Push, q3h ondansetron 2 mg/ 1 mL 2 mL INJ 4 mg 2 mL, IV Push, q4h oxyCODONE 10 mg Tab (Immediate Release) 10 mg 1 tab(s), Oral, q4h oxycodone 5 mg tablet (immediate release) 5 mg 1 tab(s), Oral, q4h prochlorperazine 10 mg/2 mL vial 5 mg 1 mL, IV Push, q6h Lab Results 07/07 06:45 WBC: 15.2 H Hgb: 10.2 L Hct: 31.0 L Platelet: 554 H Neutrophil %: 77.7 H Glucose Level: 97 Sodium Level: 142 Potassium Level: 4.0 BUN: 5.0 L Creatinine Lvl (s): 0.50 EKG No qualifying data available. Assessment/Plan This patient is a 19-year-old female admitted to the hospital on 07/07/2024 secondary to concern for an intra-abdominal abscess. Patient with a known surgical site infection status post open appendectomy on 06/16/2024 for perforated appendicitis. IR drainage has been ordered. Morning laboratory data is pending. Vital signs I/O been reviewed. She remains on IV antibiotics. On examination, she was seen resting supine in bed with her significant other present at the bedside. She was tender with palpation near the open portion of her midline abdominal incision site. It continues to drain purulent fluid. Plan: 1. Continue wound care 2. Await IR evaluation for drainage 3. Continue IV antibiotics 4. Patient's diet may be resumed after IR drain is in place 5. Encouraged mobilization up to the chair as patient is able 6. Encouraged hourly incentive spirometry use and coughing and deep breathing exercises 7. DVT prophylaxis with SCDs and MAGALYS souza The case has been discussed with Dr. López. Please see his addendum for further details. Digitally Signed by BERTHA HENRY on 07/08/2024 08:02 AM [facility] 07-08-2024 Surgery Hospital Progress note Date of Service 07/08/2024 Chief Complaint Intra-abdominal abscess Skin abscess Subjective This is a split shared visit between myself and Dr. óLpez Patient seen resting supine in bed with her significant other present at the bedside. She complained of abdominal pain when her wound was assessed. She denied any other concerns. IR drainage has been ordered for today. Objective Vitals and Measurements T: 36.8 C (Oral) TMIN: 36.8 C (Oral) TMAX: 37.4 C (Oral) HR: 96 RR: 18 BP: 134/73 SpO2: 96% Intake and Output 7AM Yesterday to 7AM Today Intake and Output (Last 24 hours) Intake Oral Intake 480.00 Administration Information 1600.00 Output Urine Voided 3.00 Stool Count 1.00 Urine Count 3.00 Emesis Count 0.00 Total Summary Total Intake 2079.00 Total Output 3.00 Fluid Balance 2076.00 Physical Exam General: Awake, alert and oriented x4. In no apparent distress. Able to answer questions appropriately and speak in full sentences. Supine in bed. HEENT: Sclera anicteric. Heart: S1 and S2 present. Lungs: Chest rise symmetrical. Respirations unlabored. Lungs clear upon auscultation. Abdomen: Soft and tender near the open portion of her incision site. Nondistended. No rigidity or guarding noted. Packing in place to the open portion of her midline abdominal incision site. Purulent drainage noted. Remaining portion of the incision appears well-healing. Extremities: Freely moving. Psychiatric: Calm and cooperative. Weight Dosing Weight: 103.4 kg (07/07/24) Medications Medications (10) Active Scheduled: (2) ciprofloxacin PMX 400 mg 200 mL, IV Piggyback, q12hr metronidazole PMX 500 mg 100 mL, IV Piggyback, q8hr Continuous: (1) NS (0.9% nacl) 1,000 mL 1,000 mL, Intravenous, 100 mL/hr PRN: (7) acetaminophen 325 mg Tablet 650 mg 2 tab(s), Oral, q4h HYDROmorphone 0.5 mg/0.5 mL syringe 0.5 mg 0.5 mL, IV Push, q3h morphine 2 mg/mL 1 mL syringe 2 mg 1 mL, IV Push, q3h ondansetron 2 mg/ 1 mL 2 mL INJ 4 mg 2 mL, IV Push, q4h oxyCODONE 10 mg Tab (Immediate Release) 10 mg 1 tab(s), Oral, q4h oxycodone 5 mg tablet (immediate release) 5 mg 1 tab(s), Oral, q4h prochlorperazine 10 mg/2 mL vial 5 mg 1 mL, IV Push, q6h Lab Results 07/07 06:45 WBC: 15.2 H Hgb: 10.2 L Hct: 31.0 L Platelet: 554 H Neutrophil %: 77.7 H Glucose Level: 97 Sodium Level: 142 Potassium Level: 4.0 BUN: 5.0 L Creatinine Lvl (s): 0.50 EKG No qualifying data available. Assessment/Plan This patient is a 19-year-old female admitted to the hospital on 07/07/2024 secondary to concern for an intra-abdominal abscess. Patient with a known surgical site infection status post open appendectomy on 06/16/2024 for perforated appendicitis. IR drainage has been ordered. Morning laboratory data is pending. Vital signs I/O been reviewed. She remains on IV antibiotics. On examination, she was seen resting supine in bed with her significant other present at the bedside. She was tender with palpation near the open portion of her midline abdominal incision site. It continues to drain purulent fluid. Plan: 1. Continue wound care 2. Await IR evaluation for drainage 3. Continue IV antibiotics 4. Patient's diet may be resumed after IR drain is in place 5. Encouraged mobilization up to the chair as patient is able 6. Encouraged hourly incentive spirometry use and coughing and deep breathing exercises 7. DVT prophylaxis with SCDs and MAGALYS souza The case has been discussed with Dr. López. Please see his addendum for further details. Digitally Signed by BERTHA HENRY APRN-DONYA on 07/08/2024 08:02 AM [facility] 07-07-2024 Note Smoking Cessation Consult Entered On: 07/07/2024 14:39 EDT Performed On: 07/07/2024 14:38 EDT by Josefina Giordano RT Cessation Practical Counseling : Provide basic information Josefina Giordano RT - 07/07/2024 14:38 EDT Discharge Planning-Smoking Cessation Time Spent wih Patient-SC : Between 3-10 minutes Josefina Giordano RT - 07/07/2024 14:38 EDT [facility] 07-07-2024 Evaluation + Plan note Extrac magalys from: Title:History and Physical Author:JUNG HARDY MD Date:07/07/24 Orders: acetaminophen(Tylenol), 650 mg= 2 tab(s), Oral, q4h, PRN ciprofloxacin(Cipro I.V.), 400 mg= 200 mL, IV Piggyback, q12hr HYDROmorphone(Dilaudid), 0.5 mg= 0.5 mL, IV Push, q3h, PRN metroNIDAZOLE, 500 mg= 100 mL, IV Piggyback, q8hr morphine, 2 mg= 1 mL, IV Push, q3h, PRN ondansetron(Zofran), 4 mg= 2 mL, IV Push, q4h, PRN oxyCODONE(oxyCODONE 5 mg oral tablet ( IMMEDIATE release )), 5 mg= 1 tab(s), Oral, q4h, PRN oxyCODONE(oxyCODONE 10 mg oral tablet ( IMMEDIATE release )), 10 mg= 1 tab(s), Oral, q4h, PRN prochlorperazine, 5 mg= 1 mL, IV Push, q6h, PRN Sodium Chloride 0.9% intravenous solution 1,000 mL(NS 1,000 mL), 1000 mL, Intravenous Admit to Inpatient, 07/07/24 0:13:00 EDT, Level of Care: Regular floor, Reason for Admission: See History & Physical, Expected Length of Stay: More Than Two Midnights, Diagnosis: intra abdominal abscess, Constant Order Basic Metabolic Panel(BMP), 07/08/24 5:00:00 EDT, Next AM Draw (one day only), Blood, Once, Preferred Lab: [facility], Stop date 07/08/24 5:00:00 EDT Bedside Commode (CS supply), 07/07/24 7:52:00 EDT, Up to 350 lbs (160 kg), Weight (kg) 103.4, Quantity 1 Complete Blood Count(CBC), 07/08/24 5:00:00 EDT, Next AM Draw (one day only), Blood, Once, Preferred Lab: [facility], Stop date 07/08/24 5:00:00 EDT Diet Order, 07/07/24 0:05:00 EDT, Start Meal: Next meal, Clear Liquid Diet, Constant Order, : No, per patient, : No Intake and Output, 07/07/24 0:05:00 EDT, q8h (2p, 10p, 6a) IV Catheter Insertion/Care(Peripheral IV Insertion/Care), 07/07/24 0:05:00 EDT, IV Care: q4h, Rotate when clinically indicated & q7day drsg change Prn Adapter, 07/07/24 0:05:00 EDT, Constant Order Pulse Oximeter - Intermittent, 07/07/24 0:05:00 EDT, q8hRT ROUTINE EMERGENCY TREATMENT - Full Code, 07/07/24 7:08:00 EDT, Constant order SCD Machine ([id number]), 07/07/24 7:52:00 EDT, Quantity 1, Supply needed SCD Sleeves - Knee ([id number]), 07/07/24 7:52:00 EDT, Quantity 1, Supply needed Sequential Compression Device Application, 07/07/24 7:16:00 EDT, Knee high, q4h Titrate / Wean Oxygen, 07/07/24 0:05:00 EDT, Constant Order, Titrate and wean O2 to maintain oxygen saturations of 92% or greater. Vital Signs, 07/07/24 0:05:00 EDT, q8h 19-year-old female who underwent open appendectomy on 06/16 for perforated appendicitis. Patient now with a lower midline incision wound that is draining pus. Patient has concerns for an only surgical site infection but an intra-abdominal abscess. N.p.o. after midnight will consult interventional radiology for their opinion Continue antibiotics. Patient became allergic to Zosyn while she was in the [place] emergency room Pain control Ambulate Incentive spirometer Future Appointments Appointment Date:08/08/2024 10:30:00 AM Scheduled Provider:MICHAEL LÓPEZ MD Location:[facility] Appointment Type:[facility] Post Op [facility] 05-26-2025 History and physical note Date of Service 07/07/24 Chief Complaint Pus from surgical wound History of Present Illness 19-year-old female who underwent open appendectomy 06/16 for perforated appendicitis. Patient saw in the office 3 days ago her ros were removed. Patient states that her wound opened up some. Patient called yesterday concerned that the wound had opened up more and patient felt like it was a crater. I told the patient to just packed the wound as best that she could and to try and see Dr. López in the office tomorrow. Patient then presented to the [place] emergency room complaining due to the wound being bigger than what she was used to. The emergency room physician on the phonetold me that the wound had pus coming from it and was foul-smelling which the patient did not mention on the phone when I had called her previously. I personally reviewed the patient CT scan of the abdomen pelvis is concerning for multiple fluid collections are to be concerning for an abscess. Review of Systems Negative except HPI Physical Exam Vitals and Measurements T: 37.2 C (Oral) TMIN: 36.8 C (Oral) TMAX: 37.2 C (Oral) HR: 98 (Monitored) RR: 16 BP: 111/60 SpO2:100% HT: 15.3 cm WT: 103.4 kg Weight Dosing Weight: 103.4 kg (07/07/24) General: Patient is awake and alert in bed. In no apparent distress. Able to speak in full sentences. HEENT: PERRLA. Sclerae anicteric. Mucous membranes moist and pink. Cardiovascular: Regular rate. Lungs: Chest is symmetrical. Respirations unlabored. Abdomen: Not distended. Soft. Appropriately tender at the lower midline incision wound which is draining eri purulent material Skin: Normal color for ethnicity. No pallor or diaphoresis. No jaundice. Psychiatric: Calm and cooperative. Lab Results 07/07 06:45 WBC: 15.2 H Hgb: 10.2 L Hct: 31.0 L Platelet: 554 H Neutrophil %: 77.7 H Glucose Level: 97 Sodium Level: 142 Potassium Level: 4.0 BUN: 5.0 L Creatinine Lvl (s): 0.50 Imaging Results and Diagnostics (07/06/2024 20:[address] Abd/Pelvis w/ IV Contrast Only) FINDINGS: Trace bilateral pleural effusions with adjacent atelectasis. No significant pericardial effusion.. Left kidney is unremarkable. Right-sided mild pelvicaliectasis and proximal to mid ureteric prominence in the visualized part, up to the level of mesenteric inflammation as described below. Nonobstructing right renal calculi. Urinary bladder is partially distended, no hyperdense calculus within. Mild fluid in presacral region. Mild fluid in pelvis. Appendix is surgically absent. Ill-defined peripherally enhancing collection seen at postoperative site in right lower quadrant region, difficult to measure accurately, extends cranially and towards the left side along the mesentery. (Series 3, image 264). Adjacent inflammatory/phlegmonous changes with fat stranding and tethering of small bowel loops. This region is not well delineated from the right mid ureter, which demonstrates proximal mild dilatation. There is mid grade dilatation of proximal to mid small bowel loops with air-fluid levels within. Uterine fundus is closely related to the above described inflammatory changes/abscess. Another smaller peripherally enhancing abscess measuring 2.6 x 1.2 cm seen in right hepatic subcapsular region at lower pole of right lobe of liver with adjacent fascial thickening and inflammation (series 3, image 138). Postoperative changes of laparotomy in midline anterior abdominal wall with a peripherally hyperdense collection measuring 1.5 x 3 2 cm. Linear hyperdensity within this collection, suspect surgical material/suture. Adjacent air foci are likely related to external communication. Mild mesenteric and retroperitoneal lymphadenopathy, likely reactive. IMPRESSION: Postoperative side inflammatory/phlegmonous changes with surgical site and intra-abdominal fluid collections extending cranially along the mesentery, concerning for abscess. There is tethering of bowel loops in this region with small bowel obstruction. The mid right ureter and uterine fundus and right adnexa are not well delineated from this process. Smaller right hepatic subcapsular fluid collection/abscess. Trace bilateral pleural effusions and adjacent atelectasis are stable. [1] Assessment/Plan Orders: acetaminophen(Tylenol), 650 mg= 2 tab(s), Oral, q4h, PRN ciprofloxacin(Cipro I.V.), 400 mg= 200 mL, IV Piggyback, q12hr HYDROmorphone(Dilaudid), 0.5 mg= 0.5 mL, IV Push, q3h, PRN metroNIDAZOLE, 500 mg= 100 mL, IV Piggyback, q8hr morphine, 2 mg= 1 mL, IV Push, q3h, PRN ondansetron(Zofran), 4 mg= 2 mL, IV Push, q4h, PRN oxyCODONE(oxyCODONE 5 mg oral tablet ( IMMEDIATE release )), 5 mg= 1 tab(s), Oral, q4h, PRN oxyCODONE(oxyCODONE 10 mg oral tablet ( IMMEDIATE release )), 10 mg= 1 tab(s), Oral, q4h, PRN prochlorperazine, 5 mg= 1 mL, IV Push, q6h, PRN Sodium Chloride 0.9% intravenous solution 1,000 mL(NS 1,000 mL), 1000 mL, Intravenous Admit to Inpatient, 07/07/24 0:13:00 EDT, Level of Care: Regular floor, Reason for Admission: See History & Physical, Expected Length of Stay: More Than Two Midnights, Diagnosis: intra abdominal abscess, Constant Order Basic Metabolic Panel(BMP), 07/08/24 5:00:00 EDT, Next AM Draw (one day only), Blood, Once, Preferred Lab: [facility], Stop date 07/08/24 5:00:00 EDT Bedside Commode (CS supply), 07/07/24 7:52:00 EDT, Up to 350 lbs (160 kg), Weight (kg) 103.4, Quantity 1 Complete Blood Count(CBC), 07/08/24 5:00:00 EDT, Next AM Draw (one day only), Blood, Once, Preferred Lab: [facility], Stop date 07/08/24 5:00:00 EDT Diet Order, 07/07/24 0:05:00 EDT, Start Meal: Next meal, Clear Liquid Diet, Constant Order, : No, per patient, : No Intake and Output, 07/07/24 0:05:00 EDT, q8h (2p, 10p, 6a) IV Catheter Insertion/Care(Peripheral IV Insertion/Care), 07/07/24 0:05:00 EDT, IV Care: q4h, Rotate when clinically indicated & q7day drsg change Prn Adapter, 07/07/24 0:05:00 EDT, Constant Order Pulse Oximeter - Intermittent, 07/07/24 0:05:00 EDT, q8hRT ROUTINE EMERGENCY TREATMENT - Full Code, 07/07/24 7:08:00 EDT, Constant order SCD Machine ([id number]), 07/07/24 7:52:00 EDT, Quantity 1, Supply needed SCD Sleeves - Knee ([id number]), 07/07/24 7:52:00 EDT, Quantity 1, Supply needed Sequential Compression Device Application, 07/07/24 7:16:00 EDT, Knee high, q4h Titrate / Wean Oxygen, 07/07/24 0:05:00 EDT, Constant Order, Titrate and wean O2 to maintain oxygensaturations of 92% or greater. Vital Signs, 07/07/24 0:05:00 EDT, q8h 19-year-old female who underwent open appendectomy on 06/16 for perforated appendicitis. Patient now with a lower midline incision wound that is draining pus. Patient has concerns for an only surgical site infection but an intra- abdominal abscess. N.p.o. after midnight will consult interventional radiology for their opinion Continue antibiotics. Patient became allergic to Zosyn while she was in the [place] emergency room Pain control Ambulate Incentive spirometer Problem List/Past Medical History Ongoing Asthma Historical Procedure/Surgical History Laparoscopic converted open appendectomy: 06/16/24 Eye- bilateral Medications Home Medications (4) Active cefdinir 300 mg oral capsule 300 mg = 1 cap(s), Oral, q12h ibuprofen 600 mg oral tablet 600 mg = 1 tab(s), Oral, q6h metroNIDAZOLE 500 mg oral tablet 500 mg = 1 tab(s), Oral, BID oxyCODONE 5 mg oral tablet ( IMMEDIATE release ) 5 mg = 1 tab(s), PRN, Oral, q6h Allergies Vicks Vapo Rub topical ointment Zosyn Social History Alcohol Use: Never., 06/15/2024 Home/Environment Living situation: Home/Independent. Financial concerns: No., 06/15/2024 Nutrition/Health Type of diet: Regular., 06/15/2024 Sexual Sexually active: Yes., 06/15/2024 Substance Abuse Use: Never., 06/15/2024 Tobacco Nicotine Use: Vaping Product in Last 90 Days. Type: vape., 07/07/2024 Nicotine Use: Never (less than 100 in lifetime)., 06/15/2024 Family History Cancer: Grandparent. Diabetes: Father. Stroke: Father. Health Status Family Member(s) Immunizations No qualifying data available. Code Status No qualifying data available. [1] CT Abd/Pelvis w/ IV Contrast Only; RAMSSE FAIR MD 07/06/2024 20:12 EDT Digitally Signed by JUNG HARDY MD on 07/07/2024 09:56 AM [id number]* Exam Date Time Procedure Performing Provider Status 07/06/24 8:[address] Abd/Pelvis w/ IV Contrast Only RAMSES FAIR MD; Auth (Verified) [id number] ORIGINAL EXAMINATION: CT OF THE ABDOMEN AND PELVIS WITH CONTRAST07/06/2024 8:16 pm TECHNIQUE: CT of the abdomen and pelvis was performed with the administration of intravenous contrast. Multiplanar reformatted images are provided for review. Automated exposure control, iterative reconstruction, and/or weight based adjustment of the mA/kV was utilized to reduce the radiation dose to as low as reasonably achievable. COMPARISON: CT abdomen pelvis 06/26/2024 HISTORY: ORDERING SYSTEM PROVIDED HISTORY: Reason for Exam: pt had appy removed 4 weeks ago. had stitches removed on Sunday, and had blood coming from wound area today. mot really painful pain FINDINGS: Trace bilateral pleural effusions with adjacent atelectasis. No significant pericardial effusion.. Left kidney is unremarkable. Right-sided mild pelvicaliectasis and proximal to mid ureteric prominence in the visualized part, up to the level of mesenteric inflammation as described below. Nonobstructing right renal calculi. Urinary bladder is partially distended, no hyperdense calculus within. Mild fluid in presacral region. Mild fluid in pelvis. Appendix is surgically absent. Ill-defined peripherally enhancing collection seen at postoperative site in right lower quadrant region, difficult to measure accurately, extends cranially and towards the left side along the mesentery. (Series 3, image 264). Adjacent inflammatory/phlegmonous changes with fat stranding and tethering of small bowel loops. This region is not well delineated from the right mid ureter, which demonstrates proximal mild dilatation. There is mid grade dilatation of proximal to mid small bowel loops with air-fluid levels within. Uterine fundus is closely related to the above described inflammatory changes/abscess. Another smaller peripherally enhancing abscess measuring 2.6 x 1.2 cm seen in right hepatic subcapsular region at lower pole of right lobe of liver with adjacent fascial thickening and inflammation (series 3, image 138). Postoperative changes of laparotomy in midline anterior abdominal wall with a peripherally hyperdense collection measuring 1.5 x 3 2 cm. Linear hyperdensity within this collection, suspect surgical material/suture. Adjacent air foci are likely related to external communication. Mild mesenteric and retroperitoneal lymphadenopathy, likely reactive. IMPRESSION: Postoperative side inflammatory/phlegmonous changes with surgical site and intra-abdominal fluid collections extending cranially along the mesentery, concerning for abscess. There is tethering of bowel loops in this region with small bowel obstruction. The mid right ureter and uterine fundus and right adnexa are not well delineated from this process. Smaller right hepatic subcapsular fluid collection/abscess. Trace bilateral pleural effusions and adjacent atelectasis are stable. I have personally reviewed the images of this examination and agree with the resident's findings and interpretation. Interpreted by: Ramses Fair Preliminary Report By: Foreign Gale Electronically signed By Ramses Fair Dictated Date: 07/06/2024 8:22:35 PM Prelim Date: 07/06/2024 8:41:07 PM Sign Date: 07/06/2024 8:54:56 PM Ordering Provider: [facility]. MICRO - Microbiology PROCEDURE: Culture Tissue [*1] SOURCE: Placenta BODY SITE: Placenta COLLECTED DATE/TIME: 06/24/2024 15:20 EDT RECEIVED DATE/TIME: 06/24/2024 16:24 EDT START DATE/TIME: 06/24/2024 16:24 EDT FREE TEXT SOURCE: AMENDED REPORTS Amended Report [] Verified Date/Time/Personnel: 06/29/2024 12:24 EDT Few Bacteroides thetaiotaomicron group Beta-Lactamase: Positive Light Anaerobic Gram Positive Giacomo Susceptibility testing on anaerobic bacteria not done. Many technical and interpretive difficulties are associated with this testing and in many cases antimicrobial therapy is used as an adjunct to primary surgical management. Please contact Microbiology with any questions ([phone]). Neisseria gonorrhoeae: Negative Gardnerella vaginalis: Negative Ureaplasma urealyticum: Negative FINAL REPORTS Final Report [] Verified Date/Time/Personnel: 06/28/2024 15:04 EDT Few Bacteroides thetaiotaomicron group Beta-Lactamase: Positive Light Anaerobic Gram Positive Giacomo Susceptibility testing on anaerobic bacteria not done. Many technical and interpretive difficulties are associated with this testing and in many cases antimicrobial therapy is used as an adjunct to primary surgical management. Please contact Microbiology with any questions ([phone]). Neisseria gonorrhoeae: Negative Gardnerella vaginalis: Negative PRELIMINARY REPORTS Preliminary Report [] Verified Date/Time/Personnel: 06/27/2024 13:05 EDT Few Bacteroides thetaiotaomicron group Beta-Lactamase: Positive Susceptibility testing on anaerobic bacteria not done. Many technical and interpretive difficulties are associated with this testing and in many cases antimicrobial therapy is used as an adjunct to primary surgical management. Please contact Microbiology with any questions ([phone]). Neisseria gonorrhoeae: Negative Gardnerella vaginalis: Negative Final report to follow. Preliminary Report [] Verified Date/Time/Personnel: 06/26/2024 15:04 EDT Culture results pending. Preliminary Report [] Verified Date/Time/Personnel: 06/25/2024 11:15 EDT No growth to date MICRO - Microbiology STAINS GS [] Verified Date/Time/Personnel: 06/24/2024 18:43 EDT 2+ Mononuclear cells 2+ Polymorphonuclear cells No organisms seen. SUSCEPTIBILITY RESULTS Bacteroides thetaiotaomicron group Antibiotic LISA Dilut LISA Inter ID Panel Not Not Applicable Applicable Performing Locations *1: This test was performed at: [address], [facility] , [facility]05-17-2025 Note. MICRO - Microbiology PROCEDURE: Blood Culture (bacterial) [*1] SOURCE: Blood BODY SITE: COLLECTED DATE/TIME: 06/23/2024 16:42 EDT RECEIVED DATE/TIME: 06/23/2024 18:45 EDT START DATE/TIME: 06/23/2024 18:45 EDT FREE TEXT SOURCE: FINAL REPORTS Final Report [] Verified Date/Time/Personnel: 06/28/2024 18:59 EDT Blood Culture: No Growth at 5 days. PRELIMINARY REPORTS Preliminary Report [] Verified Date/Time/Personnel: 06/23/2024 20:00 EDT Culture has been received in lab and is no growth to date. Routine cultures are held for 5 days. Performing Locations *1: This test was performed at: [address], [facility] , [facility]05-17-2025 Note. MICRO - Microbiology PROCEDURE: Blood Culture (bacterial) [*1] SOURCE: Blood BODY SITE: COLLECTED DATE/TIME: 06/23/2024 16:42 EDT RECEIVED DATE/TIME: 06/23/2024 18:45 EDT START DATE/TIME: 06/23/2024 18:45 EDT FREE TEXT SOURCE: FINAL REPORTS Final Report [] Verified Date/Time/Personnel: 06/28/2024 18:59 EDT Blood Culture: No Growth at 5 days. PRELIMINARY REPORTS Preliminary Report [] Verified Date/Time/Personnel: 06/23/2024 20:00 EDT Culture has been received in lab and is no growth to date. Routine cultures are held for 5 days. Performing Locations *1: This test was performed at: [facility], [address] [place] [address], [id number] , [facility]05-17-2025 Note. MICRO - Microbiology PROCEDURE: Culture Wound Deep Aerobe/Anaerobe w Gram Stain [*1] SOURCE: Wound (deep) BODY SITE: Abdomen COLLECTED DATE/TIME: 06/24/2024 07:48 EDT RECEIVED DATE/TIME: 06/24/2024 08:02 EDT START DATE/TIME: 06/24/2024 08:02 EDT FREE TEXT SOURCE: FINAL REPORTS Final Report [] Verified Date/Time/Personnel: 06/28/2024 15:02 EDT Heavy Streptococcus anginosus Unable to perform sensitivity testing due to the fastidious nature of the organism. Heavy Anaerobic Gram Positive Giacomo Light Anaerobic Gram Positive Giacomo #2 Light Parvimonas micra Light Bacteroides thetaiotaomicron group Beta-Lactamase: Positive Susceptibility testing on anaerobic bacteria not done. Many technical and interpretive difficulties are associated with this testing and in many cases antimicrobial therapy is used as an adjunct to primary surgical management. Please contact Microbiology with any questions ([phone]). Moderate Normal skin jessica present. Sensitivity testing not indicated. PRELIMINARY REPORTS Preliminary Report [] Verified Date/Time/Personnel: 06/26/2024 13:31 EDT Heavy Streptococcus anginosus Unable to perform sensitivity testing due to the fastidious nature of the organism. Moderate Normal skin jessica present. Sensitivity testing not indicated. Final report to follow. Preliminary Report [] Verified Date/Time/Personnel: 06/26/2024 11:19 EDT Heavy Streptococcus anginosus Unable to perform sensitivity testing due to the fastidious nature of the organism. Moderate Normal skin jessica present. Sensitivity testing not indicated. No anaerobes isolated to date. Final report to follow. Preliminary Report [] Verified Date/Time/Personnel: 06/25/2024 12:06 EDT Culture results pending. STAINS GS [] Verified Date/Time/Personnel: 06/24/2024 11:05 EDT 4+ Polymorphonuclear cells 4+ Gram Negative Rods 3+ Gram Positive Cocci MICRO - Microbiology SUSCEPTIBILITY RESULTS Streptococcus anginosus Antibiotic LISA Dilut LISA Inter ID Panel Not Not Applicable Applicable Parvimonas micra Antibiotic LISA Dilut LISA Inter ID Panel Not Not Applicable Applicable Bacteroides thetaiotaomicron group Antibiotic LISA Dilut LISA Inter ID Panel Not Not Applicable Applicable Performing Locations *1: This test was performed at: [facility], [address] [place] [address], [id number] , [facility]05-16-2025 Note Date of Service 06/27/24 Chief Complaint Surgical site infection Subjective Patient seen today at around 2 PM, her was at bedside. Stated that pain over abdominal incision site improving Objective Vitals and Measurements T: 36.7 C (Oral) TMIN: 36.7 C (Oral) TMAX: 37.5 C (Oral) HR: 107 (Monitored) RR: 18 BP: 134/62 SpO2: 95% Intake and Output 7AM Yesterday to 7AM Today Intake and Output (Last 24 hours) Intake Output Total Summary Total Intake 0.00 Total Output 0.00 Fluid Balance 0.00 Physical Exam General Appearance: Patient appears healthy, well-developed, not in any acute distress.. Cardiac: Normal rate and rhythm, S1-S2 heard, no murmurs heard. Lungs: Clear on auscultation bilaterally, no wheezes or rales. Abdomen: Soft mild tenderness over surgical site, Extremities: No pedal edema. Neurological: Alert ,oriented, no focal deficits. Weight Dosing Weight: 105.3 kg (06/24/24) Dosing Weight: 105.3 kg (06/23/24) Medications Medications (23) Active Scheduled: (11) acetaminophen 500 mg Tablet 1,000 mg 2 tab(s), Oral, q6h cefdinir 300 mg Capsule 300 mg 1 cap(s), Oral, BID docusate sodium 100 mg Capsule 100 mg 1 cap(s), Oral, BID docusate-senna (Senokot S) 50 mg-8.6 mg Tablet 1 tab(s), Oral, BID enoxaparin 40 mg/ 0.4mL syringe 40 mg 0.4 mL, Subcutaneous, q24h ferrous sulfate 325 mg Tablet 325 mg 1 tab(s), Oral, qDay metronidazole 500 mg Tablet 500 mg 1 tab(s), Oral, TID Misc communication order ketorolac, Miscellaneous, qDay multivitamin, Multivitamins with Folic Acid 1 mg Tab 1 tab(s), Oral, qDayM polyethylene glycol 3350 - UD packet 17 gram(s) 15 mL, Oral, BID tetanus/diphth/pertuss (Tdap) adult/adol 5 units-2.5 units-18.5 mcg/0.5 mL (Boostrix) 0.5 mL, Intramuscular, Vaccine Continuous: (1) oxytocin 20 unit(s) + LR Premix Diluent 500 mL 500 mL, Intravenous PRN: (11) benzocaine topical 20% Ointment 1 matteo, Perineum, AsDirected bisacodyl 10 mg Suppository 10 mg 1 supp, Rectal, qDay dextrose 50% Solution Disp syringe 50 mL 25 gram(s) 50 mL, IV Push, AsDirected glycerin-witch gurpreet topical 10%-50% Pad 1 matteo, Topical, AsDirected hydrocortisone topical 25 mg rectal supp 25 mg 1 supp, Rectal, BID hydrocortisone-pramoxine topical 2.5%-1% Cream 4 gram(s) 1 matteo, Rectal, QID naloxone 0.4 mg/mL (1mL) vial 0.2 mg 0.5 mL, IV Push, AsDirected ondansetron 2 mg/ 1 mL 2 mL INJ 4 mg 2 mL, IV Push, q4h oxycodone 5 mg tablet (immediate release) 5 mg 1 tab(s), Oral, q4h simethicone 80 mg Chewable 80 mg 1 tab(s), Chewed, TID sodium biphosphate-sodium phosphate 19 gm-7 gm Enema 133 mL, Rectal, qDay Lab Results 06/27 04:52 WBC: 18.6 H Hgb: 8.0 L Hct: 23.4 L Platelet: 424 Neutrophil %: 78.5 H EKG EKG - Completed -- 06/25/24 7:31:00 EDT Assessment/Plan Post-op pain Time Spent 1. Abdominal cellulitis/surgical site infection: Patient with recent appendectomy on 06/16/2024 - Purulent drainage and concern for cellulitis on abdomen - Received Zosyn, daptomycin, micafungin - Wound cultures growing Streptococcus aginosus - General Surgery was following, continue dressing as recommended - - CT abdomen did not show any abscess. - ID was on board, recommended cefdinir and Flagyl for 14 days 2. Intrauterine demise: Status post D&C for retained placenta on 06/25/2023 - [employer] following Placental cultures growing bacteroides, discussed with ID physician, recommended Cefdinir and Flagyl for 14 days. 3 . Acute blood loss anemia due to #2. Status post 2 PRBC 4. Sinus tachycardia from pain and anemia 5. Obesity, low-fat diet 6. Asthma: 7. Mild transaminitis, LFT improved. 8. Psychiatry was consulted for concern for depression. Patient is not interested in psychiatric medication. Encouraged her to go to outpatient counseling at [facility]. No need for inpatient psychiatric treatment. DVT prophylaxis subcu Lovenox Patient being discharged today. Digitally Signed by MARIA M YIN MD on 06/27/2024 05:44 PM [id number] Hospital Discharge instructions Patient Education 06/27/2024 14:36:13 7b- Intrauterine Demise (08/2013)(CUSTOM) Intrauterine Demise About one percent of normal, uncomplicated pregnancies end in (intrauterine demise, IUFD ). It is considered a when it occurs after the 20th week of . It is considered a miscarriage when a occurs in the first 20 weeks. The mother's health is usually not in danger. Usually, there is nothing that can be done to prevent it. HOME CARE INSTRUCTIONS Restrictions are usually not necessary unless associated with the delivery choice. Sexual intercourse should be avoided for 4 to 6 weeks. Starting another should be delayedseveral months, or as suggested by your caregiver. Do not use tampons or douche. Only take gocp-vsa-fklwvrx or prescription medicines for pain, discomfort, or fever as directed by your caregiver. Do not take aspirin it can cause you to bleed. Call your caregiver for a prescription for stronger pain medication if you need it. No special diet is necessary unless you have diabetes or other medical problems that require a special diet. Take showers instead of baths until your caregiver tells you it is okay. Ask your caregiver when you can return to driving and to your everyday activities. Make an appointment with your caregiver for follow up care. SEEK MEDICAL CARE IF: You develop abnormal vaginal discharge. You develop a temperature. You are getting dizzy and faint. You are feeling depressed. SEEK IMMEDIATE MEDICAL CARE IF: You have heavy vaginal bleeding. You have chills and fever. You have chest pain. You have shortness of breath. You have pain or swelling or redness of your leg. Following the of a fetus, you or a family member need help or emotional support in coping with the grief process. MAKE SURE YOU: Understand these instructions. Will watch your condition. Will get help right away if you are not doing well or get worse. Document Released: 01/29/2006 Document Revised: 01/18/2012 Document Reviewed: 10/24/2007 ExitCare Patient Information 2012 [employer]. Follow Up Care 06/23/2024 19:38:02 With:DUYEN LUNDY DO Address: [address] [facility] [place] [address] [phone] When:Within 6 Week(s) With:MAVERICK SANTACRUZ BA, MD, Infectious Disease, Infectious Disease Group Address: [facility] [address] [place] [address]- [phone] When: Unknown Comments:Follow-up with infectious disease specialist if needed. ed With:[facility] - Address:Unknown When: Unknown With:Post home RN DC follow up visit scheduled for two visits , # 1 scheduled for 06/30 between 12p-4p , visit # 2 scheduled for 07/08 between 12p-4p Address:Unknown When: Unknown With:[facility] - Address:Unknown When: Unknown With:NOT PHYSICIAN Address:Unknown When: Unknown [facility] 05-16-2025 Note Discharge Instructions Thank you for allowing [place] to assist you with your healthcare needs. The following is importantdischarge information regarding your hospital visit. Your Care Team PHYSICIAN, NOT RECORDED Your Diagnosis Post-op pain What to do next Instructions From Your Doctor Cleanse midline incision with soap and water and pat dry. Pack open wound with dry sterile gauze and place dry sterile gauze/ABD dressing over top. Change daily and as needed. Scheduled Follow-Up Appointments Sunday. 2024 8:45 AM EDT Type: GS HAND BOOKED [employer]ITCHER Post Op With: MICHAEL LÓPEZ MD Where: [facility] Status: Confirmed Follow Up Appointments Follow Up with DUYEN LUNDY DO When:In 6 weeks Where:[address] [facility] [place] [address] [phone] Follow Up with MAVERICK SANTACRUZ BA, MD, Infectious Disease, Infectious Disease Group Where:[facility] [place] [address] [place] [address] [phone] Additional Information: Follow-up with infectious disease specialist if needed. ed Follow Up with [facility] - Follow Up with Post home RN DC follow up visit scheduled for two visits , # 1 scheduled for 06/30 between 12p-4p , visit # 2 scheduled for 07/08 between 12p-4p Follow Up with [facility] - Follow Up with NOT PHYSICIAN When:In 0 days Someone Will Contact You Regarding These Home Health Referrals No home referrals have been ordered for you. No one will call you. The Following Activity and Diet Have Been Ordered for You Discharge Activity - Ordered -- May Shower, No sexual intercourse or anything inside of the vagina x 6 wks. No tub baths x 2 wks, No lifting >15lbs x 6 wks, Don't operate a vehicle for 2 wks and until pain free,, 06/27/24 13:41:00 EDT Discharge Driving Restrictions - Ordered -- No driving until pain-free, No driving while using narcotics, 06/27/24 13:41:00 EDT Discharge Diet - Ordered -- Type of Diet: Regular, No changes were made to your diet during your hospital stay. Please resume your pre hospitalization diet on discharge., 06/27/24 13:41:00 EDT The Following Equipment Has Been Ordered for You Discharge Home Equipment Discharge Wound Care - Ordered -- Cleanse midline incision with soap and water and pat dry. Pack open wound to incision site with dry gauze and cover with an ABD or gauze. Change daily and as needed., 06/27/24 9:03:00 EDT Discharge Wound Care - Ordered -- call the office if exp a temp >100.4, Increase in Bleeding, Increase in Pain, or Increase in foul odors, if ros, call office in 5days to schedule removal, 06/27/24 13:41:00 EDT The Following Treatments Have Been Arranged for You Discharge Labs No qualifying data available. Discharge Radiology No qualifying data available. Other Therapies No qualifying data available. Allergies Vicks Vapo Rub topical ointment Medications Please ask your primary doctor or pharmacist before taking any other medication not listed, including over the counter drugs, herbal medications, vitamins and or supplements as they may interact withyour home medications. What How Much When Why Instructions Last Dose New cefdinir (cefdinir 300 mg oral capsule) 1 cap by mouth Every 12 hours Duration: 14 Days Pickup at [facility] [address] New ibuprofen (ibuprofen 600 mg oral tablet) 1 tab(s) by mouth Every 6 hours Duration: 14 Days Take with food or milk. Pickup at [facility] [address] New metroNIDAZOLE (metroNIDAZOLE 500 mg oral tablet) 1 tab(s) by mouth Two (2) times a day Duration: 14 Days Pickup at [facility] [address] New oxyCODONE (oxyCODONE 5 mg oral tablet ( IMMEDIATE release )) 1 tab(s) by mouth Every 6 hours Post-op pain Duration: 3 Days Pickup at [place] [address] New senna (Senokot 8.6 mg oral tablet) 1 tab(s) by mouth Daily at bedtime as needed for for constipation Duration: 20 Days Pickup at [facility] [address] Unchanged famotidine (Pepcid 20 mg oral tablet) 1 tab(s) by mouth Once a day Unchanged polyethylene glycol 3350 (MiraLax oral powder for reconstitution) 17 gram(s) by mouth Once a day as needed for Constipation Duration: 10 Days Pharmacy Information [facility] [address]: [address] [place], [place] [phone] What How Much When Comments Stop Taking amoxicillin-clavulanate (amoxicillin- clavulanate 875 mg-125mg oral tablet) 1 tab(s) by mouth Twice daily with meals Please take this list to your next doctor s visit. Bring all medications you take, including over the counter medications, herbals and other supplements with you to your doctor s visit. Patients and families are reminded to discard old lists and to update any records with all medication providers or retail pharmacies. Education Materials Intrauterine Demise About one percent of normal, uncomplicated pregnancies end in (intrauterine demise, IUFD ). It is considered a when it occurs after the 20th week of . It is considered a miscarriage when a occurs in the first 20 weeks. The mother's health is usually not in danger. Usually, there is nothing that can be done to prevent it. HOME CARE INSTRUCTIONS Restrictions are usually not necessary unless associated with the delivery choice. Sexual intercourse should be avoided for 4 to 6 weeks. Starting another should be delayedseveral months, or as suggested by your caregiver. Do not use tampons or douche. Only take czhl-boh-rqcckwb or prescription medicines for pain, discomfort, or fever as directed by your caregiver. Do not take aspirin it can cause you to bleed. Call your caregiver for a prescription for stronger pain medication if you need it. No special diet is necessary unless you have diabetes or other medical problems that require a special diet. Take showers instead of baths until your caregiver tells you it is okay. Ask your caregiver when you can return to driving and to your everyday activities. Make an appointment with your caregiver for follow up care. SEEK MEDICAL CARE IF: You develop abnormal vaginal discharge. You develop a temperature. You are getting dizzy and faint. You are feeling depressed. SEEK IMMEDIATE MEDICAL CARE IF: You have heavy vaginal bleeding. You have chills and fever. You have chest pain. You have shortness of breath. You have pain or swelling or redness of your leg. Following the of a fetus, you or a family member need help or emotional support in coping with the grief process. MAKE SURE YOU: Understand these instructions. Will watch your condition. Will get help right away if you are not doing well or get worse. Document Released: 01/29/2006 Document Revised: 01/18/2012 Document Reviewed: 10/24/2007 ExitCare Patient Information 2012 [employer] [facility]. Additional Information VACCINATE! IT SAVES LIVES! Members of the community who have not yet received the COVID-19 vaccine and would like to receive it can visit one of [facility] vaccine clinics. There are many vaccine clinic locations within the [facility]. For locations and available times, please visit [email or web address]/. It is important to note that some COVID mobile vaccine clinics are held outdoors and may be canceled in rainy or stormy conditions. To learn more about pediatric vaccinations (ages 5-11), we invite you to visit the [facility] webpage. [email or web address] learn more about the COVID-19 vaccine, we invite you to visit the CDC website for a list of frequently asked questions. https://www.cdc.gov/coronavirus/2019-ncov/vaccines/faq.html [facility] Patient Portal Access Instructions: Stay connected with your healthcare team and access your personal medical information anytime with the [facility] Patient Portal.If you would like a full copy of your medical records, please contact the [facility] Medical Records Department, Sunday through Sunday between 8a.m. and 4:30p.m. Please follow the directions below to access the portal: 1.Access the email account you provided upon registration to the [facility].2.Look for an invitation email from [facility].3.Open the email and access the invitation link: Accept Invitation to [facility]4.Fill in the required wheeler to create your account. Sign into [email or web address] with your username and password that you created in the above steps to stay up to date. You can then view a summary of results, a summary of your visits, and the ability to download your summaries to your computer or send the information securely to a physician. Remember that your healthcare information is confidential, so carefully consider who you will allow to register on the [facility] Patient Portal for access to your information. You can also access the [facility] Patient Portal on the [employer] matteo. Simply click on Health Records under HealthData and then click on the [facility] logo. HOW TO SAFELY DISPOSE OF PRESCRIPTION MEDICATIONS Please use one of the following methods to safely dispose of your unused medications. 1.Use a drug disposal kit: the drug disposal pouch allows you to safely discard your old and unuseddrugs. Ask your nurse to give you one when you are discharged.2.Visit a local take-back location: Many local pharmacies and police departments have programs that collect old and unwanted prescriptiondrugs. Call your local pharmacy or go to http://bit.Applimation/6C2Zw2l to find one close to you.3.Make use of household items: Use cat litter or old coffee grounds to dispose medications if other options arenot available. Mix your drugs with these household products, seal them in an airtight container andthrow it into the garbage. Call [facility]: [phone] to be sure your drugs can be disposed of in this way. Some medicines may require a different approach.4.Never flush your medications down the toilet. IF YOU HAVE BEEN PRESCRIBED AN OPIOID FOR PAIN If you have been prescribed an opioid (such as hydrocodone, oxycodone or morphine), it is critical to understand the possible side effects and risks of opioid pain medications. Even when taken as directed, opioids can have several side effects including: Tolerance, meaning you might need to take more of a medication for the same pain relief. Nausea, vomiting and/or constipation. Sleepiness, dizziness, dry mouth, confusion, depression or itching. Physical dependence, meaning you have withdrawal symptoms when a medication is stopped, can develop within a few days. KNOW YOUR RESPONSIBILITIES It is important to know exactly how much and how often to take the opioid pain medications you are prescribed. Never take opioids in higher amounts or more often than prescribed. Do not combine opioids with alcohol or other drugs that cause drowsiness, such as benzodiazepines, also known as benzos,including diazepam and alprazolam, muscle relaxants or sleep aids. Never sell or share prescriptionopioids. This is illegal. Store opioids in a secure place and out of reach of others (including children, family, friends and visitors). The last page of this document has been signed and retained as a CHART COPY Signatures Patient Education Materials 7b- Intrauterine Demise (08/2013)(CUSTOM) Medication Leaflets My discharge plan and instructions have been reviewed and explained to me and ISHELTON KAYLA J understand my current condition and have read and understand these discharge instructions. I have received a written copy of the plan/instructions. If I have questions, I am aware that I should contact my doctor. 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 General surgery was consulted for management of surgical site infection. On 06/23 CBC showed leukocytosis with WBC of 15.9, lactic acid 1.1, otherwise CMP unremarkable.She was started on IV Zosyn. At that time was noted the patient was having severe abdominal pain thus [facility] [employer]LOADER was consulted. At that time it was noted that patient was unfortunately undergoing a spontaneous . She had a spontaneous vaginal delivery on 06/24. Despite conservative management with Cytotec placenta was unable to be delivered thus patient underwent a dilation and curettage on 06/24. Infectious disease had been consulted to assist with management of surgical site infection, the recommendations were to begin micafungin and daptomycin. Her leukocytosis up trended to a max of 27.6on 06/25 which was postoperative day 1 from her D&C. Hemoglobin also down trended to 7.7 and shewas symptomatic that she received 2 units of packed red blood cells. IV antibiotics were continued at this time. Subsequently psychiatry was consulted along with social work due to depressive symptoms that patient been experiencing over the last month along with self hygiene care concerns. On 06/26 WBC continued to downtrend to 18. Hemoglobin stable. Patient was recovering appropriately. Per infectious disease they recommended another 24 hours of IV antibiotics and then transition to oral antibiotics. General surgery stated patient was safe for discharge. On 06/27 patient was transition to oralantibiotics per ID recommendations, cefdinir and Flagyl. Patient was set up with a home health nurse to assist with wound care outpatient upon discharge. Patient has follow-up with Dr. López on 07/04. Allergies Vicks Vapo Rub topical ointment Procedures 06/24 suction dilation and curettage Consults Consult to Physician - Ordered -- 06/23/24 22:38:00 EDT, SYLVESTER BOND DO, Routine, s/p appendectomy with ab pain Consult to Physician - Ordered -- 06/24/24 7:17:00 EDT, MAVERICK SANTACRUZ BA, MD, Routine, Possible postoperative infection Consult to Physician - Ordered -- 06/25/24 10:23:00 EDT, ELIZABETH LAWSON MD, Routine, demise. Signs of depression, lack of self-hygiene, decreased mood and affect. No known mental health Consult to Physician (Physician Consult) - Ordered -- 06/24/24 5:18:00 EDT, JAZMYNE WRIGHT MD, Routine, concern for miscarriage Imaging Results and Diagnostics CT Abdomen/Pelvis w/Contrast Result Date: June 26, 2024 Verified By: ELIZABETH MOSELEY MD CLINICAL STATEMENT: IMPRESSION: 1. Small bilateral pleural effusions with minimal adjacent atelectasis orinfiltrate.2. Abdominal and pelvic postoperative changes with a small amount of ascitesprobably on that basis. I do not identify a discrete drainable fluidcollection to suggest abscess.3. Prominent uterus and slight prominence of the endometrium compatible withrecent gestation. Please note that CT is insensitive for endometritis.4. Moderate small bowel dilatation compatible with low to mid gradeobstruction at the level of the midportion of the ileum.5. Hyperdensity, fluid, and air/gas at the subcutaneous tissues at themidline anterior abdominal wall incision. This is compatible with recentsurgery and packing material or small amount of blood. Objective Vitals and Measurements T: 36.7 C (Oral) TMIN: 36.7 C (Oral) TMAX: 37.5 C (Oral) HR: 107 (Monitored) RR: 18 BP: 134/62 SpO2: 95% Weight Dosing Weight: 105.3 kg (06/24/24) Dosing Weight: 105.3 kg (06/23/24) Pending Labs and Studies None Code Status Code Status - Ordered -- 06/23/24 22:18:00 EDT, Full Code, Constant Order Admission Date 06/23/2024 Discharge Date 06/27/2024 Patient Instructions Cleanse midline incision with soap and water and pat dry. Pack open wound with dry sterile gauze and place dry sterile gauze/ABD dressing over top. Change daily and as needed. Medications New Prescription cefdinir (cefdinir 300 mg oral capsule)1 cap by mouth every 12 hours for 14 Days. Refills: 0. ibuprofen (ibuprofen 600 mg oral tablet)1 tab(s) by mouth every 6 hours for 14 Days. Take with foodor milk.. Refills: 0. metroNIDAZOLE (metroNIDAZOLE 500 mg oral tablet)1 tab(s) by mouth two (2) times a day for 14 Days. Refills: 0. oxyCODONE (oxyCODONE 5 mg oral tablet ( IMMEDIATE release ))1 tab(s) by mouth every 6 hours for 3 Days. Refills: 0. senna (Senokot 8.6 mg oral tablet)1 tab(s) by mouth daily at bedtime as needed for constipation for20 Days. Refills: 0. Unchanged famotidine (Pepcid 20 mg oral tablet)1 tab(s) by mouth once a day. Refills: 0. polyethylene glycol 3350 (MiraLax oral powder for reconstitution)17 gram(s) by mouth once a day as needed Constipation for 10 Days. Refills: 0. Discontinued amoxicillin-clavulanate (amoxicillin-clavulanate 875 mg-125 mg oral tablet)1 tab(s) by mouth twice daily with meals. Refills: 0. Follow Up Follow Up with [facility] - Follow Up with Post home RN DC follow up visit scheduled for two visits , # 1 scheduled for 06/30 between 12p-4p , visit # 2 scheduled for 07/08 between 12p-4p Follow Up with [facility] - Follow Up with NOT PHYSICIAN When:In 0 days Discharge Diet Discharge Diet - Ordered -- Type of Diet: Regular, No changes were made to your diet during your hospital stay. Please resume your pre hospitalization diet on discharge., 06/27/24 13:41:00 EDT Discharge Activity Discharge Activity - Ordered -- May Shower, No sexual intercourse or anything inside of the vagina x 6 wks. No tub baths x 2 wks, No lifting >15lbs x 6 wks, Don't operate a vehicle for 2 wks and until pain free,, 06/27/24 13:41:00 EDT Condition on Discharge Stable Discharge Disposition Home Information Provided To Patient Digitally Signed by DUYEN LUNDY DO on 06/27/2024 02:53 PM Digitally Signed by MADAY TREVINO MD on 06/27/2024 04:26 PM [id number] [facility] Progress note Date of Service 06/27/2024 Chief Complaint Postoperative Subjective Patient seen resting supine in bed with her and [id number] present at the bedside. Patient's [id number] was educated regarding wound care for home-going. Objective Vitals and Measurements T: 36.7 C (Oral) TMIN: 36.7 C (Oral) TMAX: 37.5 C (Oral) HR: 107 (Monitored) RR: 18 BP: 134/62 SpO2: 95% Intake and Output 7AM Yesterday to 7AM Today Intake and Output (Last 24 hours) Intake Output Total Summary Total Intake 0.00 Total Output 0.00 Fluid Balance 0.00 Physical Exam General: Awake, alert and oriented x4. In no apparent distress. Able to answer questions appropriately and speak in full sentences. Supine in bed. HEENT: Sclera anicteric. Heart: S1 and S2 present. Lungs: Chest rise symmetrical. Respirations unlabored. Abdomen: Soft and tender. Nondistended. No rigidity or guarding noted. [place] intact to midline abdominal incision site. Open areas x 2 draining purulent fluid. Wound was repacked. Extremities: Freely moving. Psychiatric: Calm and cooperative. Weight Dosing Weight: 105.3 kg (06/24/24) Dosing Weight: 105.3 kg (06/23/24) Medications Medications (23) Active Scheduled: (11) acetaminophen 500 mg Tablet 1,000 mg 2 tab(s), Oral, q6h cefdinir 300 mg Capsule 300 mg 1 cap(s), Oral, BID docusate sodium 100 mg Capsule 100 mg 1 cap(s), Oral, BID docusate-senna (Senokot S) 50 mg-8.6 mg Tablet 1 tab(s), Oral, BID enoxaparin 40 mg/ 0.4mL syringe 40 mg 0.4 mL, Subcutaneous, q24h ferrous sulfate 325 mg Tablet 325 mg 1 tab(s), Oral, qDay metronidazole 500 mg Tablet 500 mg 1 tab(s), Oral, TID Misc communication order ketorolac, Miscellaneous, qDay multivitamin, Multivitamins with Folic Acid 1 mg Tab 1 tab(s), Oral, qDayM polyethylene glycol 3350 - UD packet 17 gram(s) 15 mL, Oral, BID tetanus/diphth/pertuss (Tdap) adult/adol 5 units-2.5 units-18.5 mcg/0.5 mL (Boostrix) 0.5 mL, Intramuscular, Vaccine Continuous: (1) oxytocin 20 unit(s) + LR Premix Diluent 500 mL 500 mL, Intravenous PRN: (11) benzocaine topical 20% Ointment 1 matteo, Perineum, AsDirected bisacodyl 10 mg Suppository 10 mg 1 supp, Rectal, qDay dextrose 50% Solution Disp syringe 50 mL 25 gram(s) 50 mL, IV Push, AsDirected glycerin-witch gurpreet topical 10%-50% Pad 1 matteo, Topical, AsDirected hydrocortisone topical 25 mg rectal supp 25 mg 1 supp, Rectal, BID hydrocortisone-pramoxine topical 2.5%-1% Cream 4 gram(s) 1 matteo, Rectal, QID naloxone 0.4 mg/mL (1mL) vial 0.2 mg 0.5 mL, IV Push, AsDirected ondansetron 2 mg/ 1 mL 2 mL INJ 4 mg 2 mL, IV Push, q4h oxycodone 5 mg tablet (immediate release) 5 mg 1 tab(s), Oral, q4h simethicone 80 mg Chewable 80 mg 1 tab(s), Chewed, TID sodium biphosphate-sodium phosphate 19 gm-7 gm Enema 133 mL, Rectal, qDay Lab Results 06/27 04:52 WBC: 18.6 H Hgb: 8.0 L Hct: 23.4 L Platelet: 424 Neutrophil %: 78.5 H 06/26 04:29 WBC: 18.7 H Hgb: 8.9 L Hct: 25.4 L Platelet: 335 Neutrophil %: 82.8 H Glucose Level: 104 Sodium Level: 137 Potassium Level: 3.9 BUN: 9.0 Creatinine Lvl (s): 0.38 L EKG EKG - Completed -- 06/25/24 7:31:00 EDT Assessment/Plan This patient is a 19-year-old female status post open appendectomy on 06/16/2024. She recently experienced a demise and was noted to have a surgical site infection. Today, the patient's and [id number] were educated on wound care for home-going by Dr. López and myself. Plan: Patient remains stable for discharge home at the discretion of the primary service. All questions were answered. Please see Dr. López addendum for further details. Digitally Signed by BERTHA HENRY on 06/27/2024 12:15 PM [facility] [id number] Note Date of Service 06/26/2024 Chief Complaint Abdominal surgical site infection Subjective Patient seen and examined today, her was at bedside. She still has some pain over her abdominal site Objective Vitals and Measurements T: 36.9 C (Oral) TMIN: 36.6 C (Oral) TMAX: 36.9 C (Oral) HR: 103 (Monitored) RR: 16 BP: 136/72 SpO2: 94% Intake and Output 7AM Yesterday to 7AM Today Intake and Output (Last 24 hours) Intake Oral Intake 175.00 Administration Information 500.00 Output Urine Voided 400.00 Total Summary Total Intake 675.00 Total Output 400.00 Fluid Balance 275.00 Physical Exam General Appearance: Patient appears healthy, well-developed, not in any acute distress.. Cardiac: Normal rate and rhythm, S1-S2 heard, no murmurs heard. Lungs: Clear on auscultation bilaterally, no wheezes or rales. Abdomen: Soft mild tenderness over surgical site, Extremities: No pedal edema. Neurological: Alert ,oriented, no focal deficits. Weight Dosing Weight: 105.3 kg (06/24/24) Dosing Weight: 105.3 kg (06/23/24) Medications Medications (26) Active Scheduled: (13) acetaminophen 500 mg Tablet 1,000 mg 2 tab(s), Oral, q6h DAPTOmycin 650 mg 13 mL, IV Piggyback, qDay docusate sodium 100 mg Capsule 100 mg 1 cap(s), Oral, BID docusate-senna (Senokot S) 50 mg-8.6 mg Tablet 1 tab(s), Oral, BID enoxaparin 40 mg/ 0.4mL syringe 40 mg 0.4 mL, Subcutaneous, q24h ferrous sulfate 325 mg Tablet 325 mg 1 tab(s), Oral, qDay micafungin 100 mg, IV Piggyback, qDay Misc communication order ketorolac, Miscellaneous, qDay multivitamin, Multivitamins with Folic Acid 1 mg Tab 1 tab(s), Oral, qDayM piperacillin-tazobactam PMX 4.5 gram(s) 130 mL, IV Piggyback, q8h polyethylene glycol 3350 - UD packet 17 gram(s) 15 mL, Oral, qDay polyethylene glycol 3350 - UD packet 17 gram(s) 15 mL, Oral, BID tetanus/diphth/pertuss (Tdap) adult/adol 5 units-2.5 units-18.5 mcg/0.5 mL (Boostrix) 0.5 mL, Intramuscular, Vaccine Continuous: (1) oxytocin 20 unit(s) + LR Premix Diluent 500 mL 500 mL, Intravenous PRN: (12) benzocaine topical 20% Ointment 1 matteo, Perineum, AsDirected bisacodyl 10 mg Suppository 10 mg 1 supp, Rectal, qDay dextrose 50% Solution Disp syringe 50 mL 25 gram(s) 50 mL, IV Push, AsDirected glycerin-witch gurpreet topical 10%-50% Pad 1 matteo, Topical, AsDirected hydrocortisone topical 25 mg rectal supp 25 mg 1 supp, Rectal, BID hydrocortisone-pramoxine topical 2.5%-1% Cream 4 gram(s) 1 matteo, Rectal, QID HYDROmorphone 0.5 mg/0.5 mL syringe 0.5 mg 0.5 mL, IV Push, q4h naloxone 0.4 mg/mL (1mL) vial 0.2 mg 0.5 mL, IV Push, AsDirected ondansetron 2 mg/ 1 mL 2 mL INJ 4 mg 2 mL, IV Push, q4h oxycodone 5 mg tablet (immediate release) 5 mg 1 tab(s), Oral, q4h simethicone 80 mg Chewable 80 mg 1 tab(s), Chewed, TID sodium biphosphate-sodium phosphate 19 gm-7 gm Enema 133 mL, Rectal, qDay Lab Results 06/26 04:29 WBC: 18.7 H Hgb: 8.9 L Hct: 25.4 L Platelet: 335 Neutrophil %: 82.8 H Glucose Level: 104 Sodium Level: 137 Potassium Level: 3.9 BUN: 9.0 Creatinine Lvl (s): 0.38 L 06/25 20:37 WBC: 25.0 H Hgb: 9.9 L Hct: 27.9 L Platelet: 299 06/25 09:15 WBC: 27.6 H Hgb: 7.7 L Hct: 22.8 L Platelet: 427 Neutrophil %: 84.9 H Glucose Level: 91 Sodium Level: 136 Potassium Level: 4.2 BUN: 8.0 Creatinine Lvl (s): 0.49 L EKG Electrocardiogram (EKG) - InProcess -- 06/25/24 7:31:00 EDT Assessment/Plan Orders: Electrocardiogram(EKG), 06/25/24 7:31:00 EDT Time Spent 1. Abdominal cellulitis/surgical site infection: Patient with recent appendectomy on 06/16/2024 - Purulent drainage and concern for cellulitis on abdomen - Continue Zosyn, daptomycin, micafungin - Wound cultures growing Streptococcus aginosus - General Surgery following, continue dressing as recommended - ID following - CT abdomen did not show any abscess. 2. Intrauterine demise: Status post D&C for retained placenta on 06/25/2023 - [facility] [employer]LOADER following Placental cultures no growth so far- 3 . Acute blood loss anemia due to #2. Status post 2 PRBC 4. Sinus tachycardia from pain and anemia 5. Obesity, low-fat diet 6. Asthma: 7. Mild transaminitis, LFT improved. 8. Psychiatry was consulted for concern for depression. Patient is not interested in psychiatric medication. Encouraged her to go to outpatient counseling at [facility]. No need for inpatient psychiatric treatment. DVT prophylaxis subcu Lovenox Digitally Signed by MARIA M YIN MD on 06/26/2024 05:42 PM [facility] [id number] Infectious disease Progress note Date of Service 06/26/2024 Objective Vitals and Measurements T: 36.9 C (Oral) TMIN: 36.6 C (Oral) TMAX: 37.0 C (Oral) HR: 118 (Monitored) RR: 16 BP: 134/64 SpO2: 93% Physical Exam Chart reviewed, patient examined. Patient is arousable with verbal stimulation, appears alert and oriented x3, tearful, resting in bed with SO present at bedside. Patient is minimally conversive overall and somewhat flat in affect, is agreeable to assessment. No c/o NVD, reports continued diffuse abdominal tenderness (facial grimacing noted during removal of blankets prior to any abdominal assessment). Denies SOB, denies cough. Denies chills or sweats. Denies dysuria. No other new complaints this AM. Respirations easy and nonlabored, 93% on RA with continuous pulse oximeter in place. Patient has remained afebrile for the last 24 hours. Labs: Lactic Acid 1.3 CPK <15 FOCUSED ASSESSMENT: CVS: Regular [id number] rate LUNGS: Clear bilaterally, denies SOB, denies cough, increased RR with stimulation, on RA with continuous pulse oximeter in place ABDOMEN: Rounded, soft, diffuse tenderness, + bowel sounds, passing gas, lower midline gauze dressing in place SKIN: No rashes noted, pale in overall coloring, lower abdominal midline procedure site-covered in gauze dressing INCISIONS/DRESSINGS: Lower midline abdominal gauze dressing appears clean and intact EXTREMITIES: Generalized weakness/fatigue-ongoing? LINES/TUBES/DRAINS: RFA IV dressing dry & intact, no drainage or erythema at site CURRENT ANTIBIOTICS: Zosyn 4.5g IV Q8h 06/23 - present Mycamine 100mg IV Q24h 06/24 - present Daptomycin 650mg IV Q24h 06/24 - present CULTURE RESULTS/LISA: 06/23 Blood Cultures 2/ no growth to date -P 06/24 Wound Deep Culture (abdomen wound) -P Heavy Streptococcus anginosus Moderate Normal skin jessica present No anaerobes isolated to date 06/24 Culture Tissue (placenta) -P No growth to date Weight Dosing Weight: 105.3 kg (06/24/24) Dosing Weight: 105.3 kg (06/23/24) Medications Medications (28) Active Scheduled: (13) acetaminophen 500 mg Tablet 1,000 mg 2 tab(s), Oral, q6h DAPTOmycin 650 mg 13 mL, IV Piggyback, qDay docusate sodium 100 mg Capsule 100 mg 1 cap(s), Oral, BID docusate-senna (Senokot S) 50 mg-8.6 mg Tablet 1 tab(s), Oral, BID enoxaparin 40 mg/ 0.4mL syringe 40 mg 0.4 mL, Subcutaneous, q24h ferrous sulfate 325 mg Tablet 325 mg 1 tab(s), Oral, qDay micafungin 100 mg, IV Piggyback, qDay Misc communication order ketorolac, Miscellaneous, qDay multivitamin, Multivitamins with Folic Acid 1 mg Tab 1 tab(s), Oral, qDayM piperacillin-tazobactam PMX 4.5 gram(s) 130 mL, IV Piggyback, q8h polyethylene glycol 3350 - UD packet 17 gram(s) 15 mL, Oral, qDay polyethylene glycol 3350 - UD packet 17 gram(s) 15 mL, Oral, BID tetanus/diphth/pertuss (Tdap) adult/adol 5 units-2.5 units-18.5 mcg/0.5 mL (Boostrix) 0.5 mL, Intramuscular, Vaccine Continuous: (3) Lactated Ringers 1,000 mL 1,000 mL, Intravenous, 125 mL/hr Lactated Ringers 1,000 mL 1,000 mL, Intravenous, 125 mL/hr oxytocin 20 unit(s) + LR Premix Diluent 500 mL 500 mL, Intravenous PRN: (12) benzocaine topical 20% Ointment 1 matteo, Perineum, AsDirected bisacodyl 10 mg Suppository 10 mg 1 supp, Rectal, qDay dextrose 50% Solution Disp syringe 50 mL 25 gram(s) 50 mL, IV Push, AsDirected glycerin-witch gurpreet topical 10%-50% Pad 1 matteo, Topical, AsDirected hydrocortisone topical 25 mg rectal supp 25 mg 1 supp, Rectal, BID hydrocortisone-pramoxine topical 2.5%-1% Cream 4 gram(s) 1 matteo, Rectal, QID HYDROmorphone 0.5 mg/0.5 mL syringe 0.5 mg 0.5 mL, IV Push, q4h naloxone 0.4 mg/mL (1mL) vial 0.2 mg 0.5 mL, IV Push, AsDirected ondansetron 2 mg/ 1 mL 2 mL INJ 4 mg 2 mL, IV Push, q4h oxycodone 5 mg tablet (immediate release) 5 mg 1 tab(s), Oral, q4h simethicone 80 mg Chewable 80 mg 1 tab(s), Chewed, TID sodium biphosphate-sodium phosphate 19 gm-7 gm Enema 133 mL, Rectal, qDay Lab Results 06/26 04:29 WBC: 18.7 H Hgb: 8.9 L Hct: 25.4 L Platelet: 335 Neutrophil %: 82.8 H Glucose Level: 104 Sodium Level: 137 Potassium Level: 3.9 BUN: 9.0 Creatinine Lvl (s): 0.38 L 06/25 20:37 WBC: 25.0 H Hgb: 9.9 L Hct: 27.9 L Platelet: 299 06/25 09:15 WBC: 27.6 H Hgb: 7.7 L Hct: 22.8 L Platelet: 427 Neutrophil %: 84.9 H Glucose Level: 91 Sodium Level: 136 Potassium Level: 4.2 BUN: 8.0 Creatinine Lvl (s): 0.49 L Imaging Results and Diagnostics CT Abdomen/Pelvis w/Contrast Result Date: June 26, 2024 Verified By: ELIZABETH MOSELEY MD CLINICAL STATEMENT: IMPRESSION: 1. Small bilateral pleural effusions with minimal adjacent atelectasis orinfiltrate.2. Abdominal and pelvic postoperative changes with a small amount of ascitesprobably on that basis. I do not identify a discrete drainable fluidcollection to suggest abscess.3. Prominent uterus and slight prominence of the endometrium compatible withrecent gestation. Please note that CT is insensitive for endometritis.4. Moderate small bowel dilatation compatible with low to mid gradeobstruction at the level of the midportion of the ileum.5. Hyperdensity, fluid, and air/gas at the subcutaneous tissues at themidline anterior abdominal wall incision. This is compatible with recentsurgery and packing material or small amount of blood. Problem List Demise due to suspicion of chorioamnionitis Abdominal wall incisional cellulitis Sepsis Digitally Signed by Rosemary Owen RN on 06/26/2024 12:11 PM [facility] [id number] Infectious disease Progress note Date of Service 06/26/2024 Objective Vitals and Measurements T: 36.9 C (Oral) TMIN: 36.6 C (Oral) TMAX: 37.0 C (Oral) HR: 118 (Monitored) RR: 16 BP: 134/64 SpO2: 93% Physical Exam Chart reviewed, patient examined. Patient is arousable with verbal stimulation, appears alert and oriented x3, tearful, resting in bed with SO present at bedside. Patient is minimally conversive overall and somewhat flat in affect, is agreeable to assessment. No c/o NVD, reports continued diffuse abdominal tenderness (facial grimacing noted during removal of blankets prior to any abdominal assessment). Denies SOB, denies cough. Denies chills or sweats. Denies dysuria. No other new complaints this AM. Respirations easy and nonlabored, 93% on RA with continuous pulse oximeter in place. Patient has remained afebrile for the last 24 hours. Labs: Lactic Acid 1.3 CPK <15 FOCUSED ASSESSMENT: CVS: Regular [id number] rate LUNGS: Clear bilaterally, denies SOB, denies cough, increased RR with stimulation, on RA with continuous pulse oximeter in place ABDOMEN: Rounded, soft, diffuse tenderness, + bowel sounds, passing gas, lower midline gauze dressing in place SKIN: No rashes noted, pale in overall coloring, lower abdominal midline procedure site-covered in gauze dressing INCISIONS/DRESSINGS: Lower midline abdominal gauze dressing appears clean and intact EXTREMITIES: Generalized weakness/fatigue-ongoing? LINES/TUBES/DRAINS: RFA IV dressing dry & intact, no drainage or erythema at site CURRENT ANTIBIOTICS: Zosyn 4.5g IV Q8h 06/23 - present Mycamine 100mg IV Q24h 06/24 - present Daptomycin 650mg IV Q24h 06/24 - present CULTURE RESULTS/LISA: 06/23 Blood Cultures / no growth to date -P 06/24 Wound Deep Culture (abdomen wound) -P Heavy Streptococcus anginosus Moderate Normal skin jessica present No anaerobes isolated to date 06/24 Culture Tissue (placenta) -P No growth to date Weight Dosing Weight: 105.3 kg (06/24/24) Dosing Weight: 105.3 kg (06/23/24) Medications Medications (28) Active Scheduled: (13) acetaminophen 500 mg Tablet 1,000 mg 2 tab(s), Oral, q6h DAPTOmycin 650 mg 13 mL, IV Piggyback, qDay docusate sodium 100 mg Capsule 100 mg 1 cap(s), Oral, BID docusate-senna (Senokot S) 50 mg-8.6 mg Tablet 1 tab(s), Oral, BID enoxaparin 40 mg/ 0.4mL syringe 40 mg 0.4 mL, Subcutaneous, q24h ferrous sulfate 325 mg Tablet 325 mg 1 tab(s), Oral, qDay micafungin 100 mg, IV Piggyback, qDay Misc communication order ketorolac, Miscellaneous, qDay multivitamin, Multivitamins with Folic Acid 1 mg Tab 1 tab(s), Oral, qDayM piperacillin-tazobactam PMX 4.5 gram(s) 130 mL, IV Piggyback, q8h polyethylene glycol 3350 - UD packet 17 gram(s) 15 mL, Oral, qDay polyethylene glycol 3350 - UD packet 17 gram(s) 15 mL, Oral, BID tetanus/diphth/pertuss (Tdap) adult/adol 5 units-2.5 units-18.5 mcg/0.5 mL (Boostrix) 0.5 mL, Intramuscular, Vaccine Continuous: (3) Lactated Ringers 1,000 mL 1,000 mL, Intravenous, 125 mL/hr Lactated Ringers 1,000 mL 1,000 mL, Intravenous, 125 mL/hr oxytocin 20 unit(s) + LR Premix Diluent 500 mL 500 mL, Intravenous PRN: (12) benzocaine topical 20% Ointment 1 matteo, Perineum, AsDirected bisacodyl 10 mg Suppository 10 mg 1 supp, Rectal, qDay dextrose 50% Solution Disp syringe 50 mL 25 gram(s) 50 mL, IV Push, AsDirected glycerin-witch gurpreet topical 10%-50% Pad 1 matteo, Topical, AsDirected hydrocortisone topical 25 mg rectal supp 25 mg 1 supp, Rectal, BID hydrocortisone-pramoxine topical 2.5%-1% Cream 4 gram(s) 1 matteo, Rectal, QID HYDROmorphone 0.5 mg/0.5 mL syringe 0.5 mg 0.5 mL, IV Push, q4h naloxone 0.4 mg/mL (1mL) vial 0.2 mg 0.5 mL, IV Push, AsDirected ondansetron 2 mg/ 1 mL 2 mL INJ 4 mg 2 mL, IV Push, q4h oxycodone 5 mg tablet (immediate release) 5 mg 1 tab(s), Oral, q4h simethicone 80 mg Chewable 80 mg 1 tab(s), Chewed, TID sodium biphosphate-sodium phosphate 19 gm-7 gm Enema 133 mL, Rectal, qDay Lab Results 06/26 04:29 WBC: 18.7 H Hgb: 8.9 L Hct: 25.4 L Platelet: 335 Neutrophil %: 82.8 H Glucose Level: 104 Sodium Level: 137 Potassium Level: 3.9 BUN: 9.0 Creatinine Lvl (s): 0.38 L 06/25 20:37 WBC: 25.0 H Hgb: 9.9 L Hct: 27.9 L Platelet: 299 06/25 09:15 WBC: 27.6 H Hgb: 7.7 L Hct: 22.8 L Platelet: 427 Neutrophil %: 84.9 H Glucose Level: 91 Sodium Level: 136 Potassium Level: 4.2 BUN: 8.0 Creatinine Lvl (s): 0.49 L Imaging Results and Diagnostics CT Abdomen/Pelvis w/Contrast Result Date: June 26, 2024 Verified By: ELIZABETH MOSELEY MD CLINICAL STATEMENT: IMPRESSION: 1. Small bilateral pleural effusions with minimal adjacent atelectasis orinfiltrate.2. Abdominal and pelvic postoperative changes with a small amount of ascitesprobably on that basis. I do not identify a discrete drainable fluidcollection to suggest abscess.3. Prominent uterus and slight prominence of the endometrium compatible withrecent gestation. Please note that CT is insensitive for endometritis.4. Moderate small bowel dilatation compatible with low to mid gradeobstruction at the level of the midportion of the ileum.5. Hyperdensity, fluid, and air/gas at the subcutaneous tissues at themidline anterior abdominal wall incision. This is compatible with recentsurgery and packing material or small amount of blood. Problem List Demise due to suspicion of chorioamnionitis Abdominal wall incisional cellulitis Sepsis Digitally Signed by Rosemary Owen RN on 06/26/2024 12:11 PM [facility] [id number] NoteEvent Display: SP Clin Info UNABLE TO PASS PLACENTA AFTER OF DEMISE Procedure: D AND C AFTER DELIVERY OF DEMISE Preoperative diagnosis: UNABLE TO PASS PLACENTA AFTER OF DEMISE Postoperative diagnosis: D AN C AFTER DEMISE SADIQ GARCIA MD:VERIFY; Authored Date: [id number] [facility] 05-15-2025 [facility] Progress note Date of Service 06/26/2024 Chief Complaint Abdominal discomfort Subjective Examination of the patient she is seen after returning back from her CT scan of abdomen pelvis. Patient reporting that she is continuing to have some abdominal pain and discomfort at the surgicalsite. Objective Vitals and Measurements T: 36.9 C (Oral) TMIN: 36.6 C (Oral) TMAX: 37.0 C (Oral) HR: 118 (Monitored) RR: 18 BP: 134/64 SpO2: 95% Intake and Output 7AM Yesterday to 7AM Today Intake and Output (Last 24 hours) Intake Red Blood Cells Amount Transfused 1000.00 Oral Intake 175.00 Administration Information 500.00 Output Urine Voided 400.00 Total Summary Total Intake 1675.00 Total Output 400.00 Fluid Balance 1275.00 Physical Exam General: Awake and alert and in no apparent distress. Able to answer questions and speak in full sentences. Supine in bed. Sitting upright. Flat affect HEENT: Mucous membranes moist and pink. Sclerae anicteric. PERRLA. Abdomen: Soft and mild tenderness to the midline incision nondistended. No guarding or rigidity. Lower distal portion of incision line with purulent drainage noted on dressing. Extremities: Freely moving. Skin: Pallor Psychiatric: Calm and cooperative. Weight Dosing Weight: 105.3 kg (06/24/24) Dosing Weight: 105.3 kg (06/23/24) Medications Medications (26) Active Scheduled: (11) acetaminophen 500 mg Tablet 1,000 mg 2 tab(s), Oral, q6h DAPTOmycin 650 mg 13 mL, IV Piggyback, qDay docusate sodium 100 mg Capsule 100 mg 1 cap(s), Oral, BID enoxaparin 40 mg/ 0.4mL syringe 40 mg 0.4 mL, Subcutaneous, q24h ferrous sulfate 325 mg Tablet 325 mg 1 tab(s), Oral, qDay micafungin 100 mg, IV Piggyback, qDay Misc communication order ketorolac, Miscellaneous, qDay multivitamin, Multivitamins with Folic Acid 1 mg Tab 1 tab(s), Oral, qDayM piperacillin-tazobactam PMX 4.5 gram(s) 130 mL, IV Piggyback, q8h polyethylene glycol 3350 - UD packet 17 gram(s) 15 mL, Oral, qDay tetanus/diphth/pertuss (Tdap) adult/adol 5 units-2.5 units-18.5 mcg/0.5 mL (Boostrix) 0.5 mL, Intramuscular, Vaccine Continuous: (3) Lactated Ringers 1,000 mL 1,000 mL, Intravenous, 125 mL/hr Lactated Ringers 1,000 mL 1,000 mL, Intravenous, 125 mL/hr oxytocin 20 unit(s) + LR Premix Diluent 500 mL 500 mL, Intravenous PRN: (12) benzocaine topical 20% Ointment 1 matteo, Perineum, AsDirected bisacodyl 10 mg Suppository 10 mg 1 supp, Rectal, qDay dextrose 50% Solution Disp syringe 50 mL 25 gram(s) 50 mL, IV Push, AsDirected glycerin-witch gurpreet topical 10%-50% Pad 1 matteo, Topical, AsDirected hydrocortisone topical 25 mg rectal supp 25 mg 1 supp, Rectal, BID hydrocortisone-pramoxine topical 2.5%-1% Cream 4 gram(s) 1 matteo, Rectal, QID HYDROmorphone 0.5 mg/0.5 mL syringe 0.5 mg 0.5 mL, IV Push, q4h naloxone 0.4 mg/mL (1mL) vial 0.2 mg 0.5 mL, IV Push, AsDirected ondansetron 2 mg/ 1 mL 2 mL INJ 4 mg 2 mL, IV Push, q4h oxycodone 5 mg tablet (immediate release) 5 mg 1 tab(s), Oral, q4h simethicone 80 mg Chewable 80 mg 1 tab(s), Chewed, TID sodium biphosphate-sodium phosphate 19 gm-7 gm Enema 133 mL, Rectal, qDay Lab Results 06/26 04:29 WBC: 18.7 H Hgb: 8.9 L Hct: 25.4 L Platelet: 335 Neutrophil %: 82.8 H Glucose Level: 104 Sodium Level: 137 Potassium Level: 3.9 BUN: 9.0 Creatinine Lvl (s): 0.38 L 06/25 20:37 WBC: 25.0 H Hgb: 9.9 L Hct: 27.9 L Platelet: 299 06/25 09:15 WBC: 27.6 H Hgb: 7.7 L Hct: 22.8 L Platelet: 427 Neutrophil %: 84.9 H Glucose Level: 91 Sodium Level: 136 Potassium Level: 4.2 BUN: 8.0 Creatinine Lvl (s): 0.49 L Imaging Results and Diagnostics CT Abdomen/Pelvis w/Contrast Result Date: June 26, 2024 Verified By: ELIZABETH MOSELEY MD CLINICAL STATEMENT: IMPRESSION: 1. Small bilateral pleural effusions with minimal adjacent atelectasis orinfiltrate.2. Abdominal and pelvic postoperative changes with a small amount of ascites probably on that basis. I do not identify a discrete drainable fluid collection to suggest abscess.3. Prominent uterus and slight prominence of the endometrium compatible with recent gestation. Please note that CT is insensitive for endometritis.4. Moderate small bowel dilatation compatible with low to mid grade obstruction at the level of the midportion of the ileum.5. Hyperdensity, fluid, and air/gas at the subcutaneous tissues at th emidline anterior abdominal wall incision. This is compatible with recent surgery and packing material or small amount of blood. EKG Electrocardiogram (EKG) - InProcess -- 06/25/24 7:31:00 EDT Assessment/Plan This patient is a 19-year-old female status post open appendectomy on 07/06/2024 patient recently had a demise at 19 weeks. Surgery has been following secondary to surgical site infection. Vital signs, laboratory data I/O's been reviewed. Patient's leukocytosis is improving. Patient did undergo a repeat CT scan of abdomen pelvis this a.m. that showed no abdominal or pelvicfluid to suggest abscess. Will review CT results with Dr. López. Evaluation of the patient her abdomen is round, soft with mild tenderness to the midline incision. Patient with purulent drainage to the lower distal portion of midline incision. Very minimal rednessto the midline incision. Plan: 1. Midline wound infection - Continue with wet-to-dry dressing changes as ordered. - Continue with bowel regiment - Patient encouraged to mobilize, cough and deep breathe use incentive spirometry - No new orders at this time from a surgical standpoint. Case has been discussed with Dr. Aparicio. Please see his addendum follow. This document was dictated with voice recognition software and may contain grammatical errors Digitally Signed by SAMIA JOHNSON on 06/26/2024 09:38 AM [facility] [id number] [facility] Progress note Date of Service 06/26/2024 Chief Complaint Abdominal discomfort Subjective Examination of the patient she is seen after returning back from her CT scan of abdomen pelvis. Patient reporting that she is continuing to have some abdominal pain and discomfort at the surgicalsite. Objective Vitals and Measurements T: 36.9 C (Oral) TMIN: 36.6 C (Oral) TMAX: 37.0 C (Oral) HR: 118 (Monitored) RR: 18 BP: 134/64 SpO2: 95% Intake and Output 7AM Yesterday to 7AM Today Intake and Output (Last 24 hours) Intake Red Blood Cells Amount Transfused 1000.00 Oral Intake 175.00 Administration Information 500.00 Output Urine Voided 400.00 Total Summary Total Intake 1675.00 Total Output 400.00 Fluid Balance 1275.00 Physical Exam General: Awake and alert and in no apparent distress. Able to answer questions and speak in full sentences. Supine in bed. Sitting upright. Flat affect HEENT: Mucous membranes moist and pink. Sclerae anicteric. PERRLA. Abdomen: Soft and mild tenderness to the midline incision nondistended. No guarding or rigidity. Lower distal portion of incision line with purulent drainage noted on dressing. Extremities: Freely moving. Skin: Pallor Psychiatric: Calm and cooperative. Weight Dosing Weight: 105.3 kg (06/24/24) Dosing Weight: 105.3 kg (06/23/24) Medications Medications (26) Active Scheduled: (11) acetaminophen 500 mg Tablet 1,000 mg 2 tab(s), Oral, q6h DAPTOmycin 650 mg 13 mL, IV Piggyback, qDay docusate sodium 100 mg Capsule 100 mg 1 cap(s), Oral, BID enoxaparin 40 mg/ 0.4mL syringe 40 mg 0.4 mL, Subcutaneous, q24h ferrous sulfate 325 mg Tablet 325 mg 1 tab(s), Oral, qDay micafungin 100 mg, IV Piggyback, qDay Misc communication order ketorolac, Miscellaneous, qDay multivitamin, Multivitamins with Folic Acid 1 mg Tab 1 tab(s), Oral, qDayM piperacillin-tazobactam PMX 4.5 gram(s) 130 mL, IV Piggyback, q8h polyethylene glycol 3350 - UD packet 17 gram(s) 15 mL, Oral, qDay tetanus/diphth/pertuss (Tdap) adult/adol 5 units-2.5 units-18.5 mcg/0.5 mL (Boostrix) 0.5 mL, Intramuscular, Vaccine Continuous: (3) Lactated Ringers 1,000 mL 1,000 mL, Intravenous, 125 mL/hr Lactated Ringers 1,000 mL 1,000 mL, Intravenous, 125 mL/hr oxytocin 20 unit(s) + LR Premix Diluent 500 mL 500 mL, Intravenous PRN: (12) benzocaine topical 20% Ointment 1 matteo, Perineum, AsDirected bisacodyl 10 mg Suppository 10 mg 1 supp, Rectal, qDay dextrose 50% Solution Disp syringe 50 mL 25 gram(s) 50 mL, IV Push, AsDirected glycerin-witch gurpreet topical 10%-50% Pad 1 matteo, Topical, AsDirected hydrocortisone topical 25 mg rectal supp 25 mg 1 supp, Rectal, BID hydrocortisone-pramoxine topical 2.5%-1% Cream 4 gram(s) 1 matteo, Rectal, QID HYDROmorphone 0.5 mg/0.5 mL syringe 0.5 mg 0.5 mL, IV Push, q4h naloxone 0.4 mg/mL (1mL) vial 0.2 mg 0.5 mL, IV Push, AsDirected ondansetron 2 mg/ 1 mL 2 mL INJ 4 mg 2 mL, IV Push, q4h oxycodone 5 mg tablet (immediate release) 5 mg 1 tab(s), Oral, q4h simethicone 80 mg Chewable 80 mg 1 tab(s), Chewed, TID sodium biphosphate-sodium phosphate 19 gm-7 gm Enema 133 mL, Rectal, qDay Lab Results 06/26 04:29 WBC: 18.7 H Hgb: 8.9 L Hct: 25.4 L Platelet: 335 Neutrophil %: 82.8 H Glucose Level: 104 Sodium Level: 137 Potassium Level: 3.9 BUN: 9.0 Creatinine Lvl (s): 0.38 L 06/25 20:37 WBC: 25.0 H Hgb: 9.9 L Hct: 27.9 L Platelet: 299 06/25 09:15 WBC: 27.6 H Hgb: 7.7 L Hct: 22.8 L Platelet: 427 Neutrophil %: 84.9 H Glucose Level: 91 Sodium Level: 136 Potassium Level: 4.2 BUN: 8.0 Creatinine Lvl (s): 0.49 L Imaging Results and Diagnostics CT Abdomen/Pelvis w/Contrast Result Date: June 26, 2024 Verified By: ELIZABETH MOSELEY MD CLINICAL STATEMENT: IMPRESSION: 1. Small bilateral pleural effusions with minimal adjacent atelectasis orinfiltrate.2. Abdominal and pelvic postoperative changes with a small amount of ascites probably on that basis. I do not identify a discrete drainable fluid collection to suggest abscess.3. Prominent uterus and slight prominence of the endometrium compatible with recent gestation. Please note that CT is insensitive for endometritis.4. Moderate small bowel dilatation compatible with low to mid grade obstruction at the level of the midportion of the ileum.5. Hyperdensity, fluid, and air/gas at the subcutaneous tissues at th emidline anterior abdominal wall incision. This is compatible with recent surgery and packing material or small amount of blood. EKG Electrocardiogram (EKG) - InProcess -- 06/25/24 7:31:00 EDT Assessment/Plan This patient is a 19-year-old female status post open appendectomy on 07/06/2024 patient recently had a demise at 19 weeks. Surgery has been following secondary to surgical site infection. Vital signs, laboratory data I/O's been reviewed. Patient's leukocytosis is improving. Patient did undergo a repeat CT scan of abdomen pelvis this a.m. that showed no abdominal or pelvicfluid to suggest abscess. Will review CT results with Dr. López. Evaluation of the patient her abdomen is round, soft with mild tenderness to the midline incision. Patient with purulent drainage to the lower distal portion of midline incision. Very minimal rednessto the midline incision. Plan: 1. Midline wound infection - Continue with wet-to-dry dressing changes as ordered. - Continue with bowel regiment - Patient encouraged to mobilize, cough and deep breathe use incentive spirometry - No new orders at this time from a surgical standpoint. Case has been discussed with Dr. Aparicio. Please see his addendum follow. This document was dictated with voice recognition software and may contain grammatical errors Digitally Signed by SAMIA JOHNSON on 06/26/2024 09:38 AM [facility] [id number] Note* Exam Date Time Procedure Performing Provider Status 06/26/24 8:[address] Abdomen/Pelvis w/Contrast JULIO CESARNATHANIEL MD; Auth (Verified) [id number] ORIGINAL EXAMINATION: CT OF THE ABDOMEN AND PELVIS WITH CONTRAST 06/26/2024 9:10 am TECHNIQUE: CT of the abdomen and pelvis was performed with the administration of intravenous contrast. Multiplanar reformatted images are provided for review. Automated exposure control, iterative reconstruction, and/or weight based adjustment of the mA/kV was utilized to reduce the radiation dose to as low as reasonably achievable. COMPARISON: None. HISTORY: ORDERING SYSTEM PROVIDED HISTORY: Reason for Exam: s/p open appendectomy 06/16/24, perforated appendix. s/p demise delivery 06/24/24 at 19weeks gestation. leukocytosis, abd pain, chorioamnionitis or abscess FINDINGS: No osseous abnormality is evident. Small bilateral pleural effusions are present, with small adjacent areas of infiltrate or atelectasis at the lower lobes. The lung bases are otherwise unremarkable. No gross gallbladder abnormality seen. No focal liver lesions evident. The spleen, adrenal glands and pancreas are unremarkable. No kidney abnormality is evident. Small volume ascites is noted in the abdomen and pelvis. The uterus is slightly prominent compatible with recent previous gestation. No other uterine abnormality seen. Urinary bladder is grossly normal. There are anterior abdominal wall skin ros from recent previous surgery. There is some hyperdensity identified at the incision, with small areas of air and fluid. This may be postoperative packing material or a small amount of blood. A discrete fluid collection is not definitely seen. Right lower quadrant clips are present from previous appendectomy. Right and left colon are normal in caliber. There is mild distension of the transverse portion of the colon. There is moderate jejunal dilatation extending to the proximal portion of the ileum as well. There is some normal caliber distal ileum seen. No pneumatosis is evident. No other GI tract abnormality. There is no discrete drainable fluid collection definitely identified on this exam. No additional contributory abnormality seen. IMPRESSION: 1. Small bilateral pleural effusions with minimal adjacent atelectasis or infiltrate. 2. Abdominal and pelvic postoperative changes with a small amount of ascites probably on that basis. I do not identify a discrete drainable fluid collection to suggest abscess. 3. Prominent uterus and slight prominence of the endometrium compatible with recent gestation. Please note that CT is insensitive for endometritis. 4. Moderate small bowel dilatation compatible with low to mid grade obstruction at the level of the midportion of the ileum. 5. Hyperdensity, fluid, and air/gas at the subcutaneous tissues at the midline anterior abdominal wall incision. This is compatible with recent surgery and packing material or small amount of blood. Interpreted by: Elizabeth Moseley MD Preliminary Report By: Elizabeth Moseley MD Electronically signed By Elizabeth Moseley MD Dictated Date: 06/26/2024 9:13:56 AM Prelim Date: 06/26/2024 9:24:32 AM Sign Date: 06/26/2024 9:24:32 AM Ordering Provider: MAVERICK SANTACRUZ [facility] [id number] Note* Exam Date Time Procedure Performing Provider Status 06/26/24 7:47 AM Electrocardiogram - EKG - CV YONIS BECERRA MD; Auth (Verified) ECG Final Report Sinus tachycardia Borderline T abnormalities, inferior leads Electronic Signature: LURDES BECERRA MD 06/26/2024 23:15:14 [facility] [id number] Infectious disease Progress note Subjective Patient seen and examined labs and notes reviewed no new complaints reports abdominal pain . 24-hour Tmax is 37.6 Lab work today for reveals worsening leukocytosis of 27,000 compared to 21,000 yesterday, may be reactive from surgery. She is tachycardic today as well Objective Vitals and Measurements T: 36.9 C (Oral) TMIN: 36.5 C (Oral) TMAX: 37.65 C HR: 121 RR: 28 BP: 127/72 SpO2: 98% Intake and Output 7AM Yesterday to 7AM Today Intake and Output (Last 24 hours) Intake Administration Information 555.00 Output Urine Voided 300.00 Intra-Op EBL 400.00 Intra-Op Urine Catheter 400.00 Total Summary Total Intake 555.00 Total Output 1100.00 Fluid Balance -545.00 Physical Exam Abdominal pain with tenderness Incision is healing well Lungs are clear Heart is regular rhythm Abdomen soft with no tenderness Weight Dosing Weight: 105.3 kg (06/24/24) Dosing Weight: 105.3 kg (06/23/24) Medications Medications (25) Active Scheduled: (10) acetaminophen 500 mg Tablet 1,000 mg 2 tab(s), Oral, q6h DAPTOmycin 650 mg 13 mL, IV Piggyback, qDay docusate sodium 100 mg Capsule 100 mg 1 cap(s), Oral, BID ferrous sulfate 325 mg Tablet 325 mg 1 tab(s), Oral, qDay ketorolac 15 mg/mL vial 15 mg 1 mL, IV Push, q6hr micafungin 100 mg, IV Piggyback, qDay Misc communication order ketorolac, Miscellaneous, qDay piperacillin-tazobactam PMX 4.5 gram(s) 130 mL, IV Piggyback, q8h polyethylene glycol 3350 - UD packet 17 gram(s) 15 mL, Oral, qDay tetanus/diphth/pertuss (Tdap) adult/adol 5 units-2.5 units-18.5 mcg/0.5 mL (Boostrix) 0.5 mL, Intramuscular, Vaccine Continuous: (4) Lactated Ringers 1,000 mL 1,000 mL, Intravenous, 125 mL/hr Lactated Ringers 1,000 mL 1,000 mL, Intravenous, 125 mL/hr oxytocin 20 unit(s) + LR Premix Diluent 500 mL 500 mL, Intravenous Sodium Chloride 0.9% 250 mL 250 mL, Intravenous, 20 mL/hr PRN: (11) benzocaine topical 20% Ointment 1 matteo, Perineum, AsDirected bisacodyl 10 mg Suppository 10 mg 1 supp, Rectal, qDay dextrose 50% Solution Disp syringe 50 mL 25 gram(s) 50 mL, IV Push, AsDirected glycerin-witch gurpreet topical 10%-50% Pad 1 amtteo, Topical, AsDirected hydrocortisone topical 25 mg rectal supp 25 mg 1 supp, Rectal, BID hydrocortisone-pramoxine topical 2.5%-1% Cream 4 gram(s) 1 matteo, Rectal, QID hydromorphone 1 mg/mL (1mL) INJ 1 mg 1 mL, IV Push, q3h naloxone 0.4 mg/mL (1mL) vial 0.2 mg 0.5 mL, IV Push, AsDirected ondansetron 2 mg/ 1 mL 2 mL INJ 4 mg 2 mL, IV Push, q4h simethicone 80 mg Chewable 80 mg 1 tab(s), Chewed, TID sodium biphosphate-sodium phosphate 19 gm-7 gm Enema 133 mL, Rectal, qDay Lab Results 06/25 09:15 WBC: 27.6 H Hgb: 7.7 L Hct: 22.8 L Platelet: 427 Neutrophil %: 84.9 H Glucose Level: 91 Sodium Level: 136 Potassium Level: 4.2 BUN: 8.0 Creatinine Lvl (s): 0.49 L 06/24 03:35 WBC: 21.9 H Hgb: 11.0 L Hct: 32.8 L Platelet: 343 Glucose Level: 88 Sodium Level: 136 Potassium Level: 3.8 BUN: <5.0 L Creatinine Lvl (s): 0.38 L Imaging Results and Diagnostics Discussed the plan of care at length with patient, EKG Electrocardiogram (EKG) - Ordered -- 06/25/24 7:31:00 EDT Assessment/Plan Demise due to suspicion of chorioamnionitis Abdominal wall incisional cellulitis Sepsis 19-year-old female who was 19-week gestation, had spontaneous delivery for her demised male fetus, recently underwent appendectomy on 06/16/2024 secondary to acute perforated . S/P Delivery of 19 wk demise on 06/24 and s/p D&C for retained placenta on 06/24. reports abdominal pain . 24-hour Tmax is 37.6. Lab work today for reveals worsening leukocytosis of27,000 compared to 21,000 yesterday, may be reactive from surgery. She is tachycardic today as well Midline abdominal incision has some purulent drainage. General surgery is following UA with microscopy was not suggestive for UTI. Blood cultures show no growth to date Placenta cultures are pending Will continue IV Mycamine, daptomycin and Zosyn. CPK level within normal limits, will need routine monitoring while in daptomycin Discussed the plan of care at length with patient Admits to abdominal pain and worsening leukocytosis I strongly recommended obtaining CT scan of the abdomen pelvic area however she admitted that she would like to hold off until tomorrow Discussed with her the risk benefits approach Will follow clinical course and microdata imaging studies I was present for Deirdre Oates LPN , and personally directed, all components of the patient's complete evaluation and management documented by the scribe today. I have personally examined the patient and reviewed all diagnostic data. I have reviewed all of this documentation by the scribe. It documents the history obtained, examination performed, diagnostic testing results compiled by him/her,and discharge information. We provided service elements including disease transmission risk assessment and mitigation, public health investigation, analysis and testing, and complex antimicrobial therapy counseling and treatment. We discussed ways of infection control and prevention. Risks and benefits of complex antimicrobial therapy was discussed at length with patient and staff. Plan of care has been discussed with patient at bedside, we discussed potential side effects of antimicrobial therapy/antifungal/antiviral therapy. Digitally Signed by MAVERICK SANTACRUZ BA, MD on 06/25/2024 05:31 PM Digitally Signed by Deirdre Oates Licensed Scribe on 06/25/2024 01:10 PM Digitally Signed by Deirdre Oates Licensed Scribe on 06/25/2024 01:38 PM [facility] [id number] Note Date of Service 06/25/24 Chief Complaint Patient seen and examined today for surgical site infection Subjective Patient seen today, her was at bedside. She still has some pain over surgical site. Objective Vitals and Measurements T: 36.9 C (Oral) TMIN: 36.5 C (Oral) TMAX: 37.1 C (Oral) HR: 112 RR: 20 BP: 119/74 SpO2: 99% Intake and Output 7AM Yesterday to 7AM Today Intake and Output (Last 24 hours) Intake Red Blood Cells Amount Transfused 500.00 Output Urine Voided 300.00 Total Summary Total Intake 500.00 Total Output 300.00 Fluid Balance 200.00 Physical Exam General Appearance: Patient appears healthy, well-developed, not in any acute distress.. Cardiac: Normal rate and rhythm, S1-S2 heard, no murmurs heard. Lungs: Clear on auscultation bilaterally, no wheezes or rales. Abdomen: Soft mild tenderness over surgical site, Extremities: No pedal edema. Neurological: Alert ,oriented, no focal deficits. Skin: Dressing intact over abdominal side Weight Dosing Weight: 105.3 kg (06/24/24) Dosing Weight: 105.3 kg (06/23/24) Medications Medications (26) Active Scheduled: (10) acetaminophen 500 mg Tablet 1,000 mg 2 tab(s), Oral, q6h DAPTOmycin 650 mg 13 mL, IV Piggyback, qDay docusate sodium 100 mg Capsule 100 mg 1 cap(s), Oral, BID ferrous sulfate 325 mg Tablet 325 mg 1 tab(s), Oral, qDay ketorolac 15 mg/mL vial 15 mg 1 mL, IV Push, q6hr micafungin 100 mg, IV Piggyback, qDay Misc communication order ketorolac, Miscellaneous, qDay piperacillin-tazobactam PMX 4.5 gram(s) 130 mL, IV Piggyback, q8h polyethylene glycol 3350 - UD packet 17 gram(s) 15 mL, Oral, qDay tetanus/diphth/pertuss (Tdap) adult/adol 5 units-2.5 units-18.5 mcg/0.5 mL (Boostrix) 0.5 mL, Intramuscular, Vaccine Continuous: (4) Lactated Ringers 1,000 mL 1,000 mL, Intravenous, 125 mL/hr Lactated Ringers 1,000 mL 1,000 mL, Intravenous, 125 mL/hr oxytocin 20 unit(s) + LR Premix Diluent 500 mL 500 mL, Intravenous Sodium Chloride 0.9% 250 mL 250 mL, Intravenous, 20 mL/hr PRN: (12) benzocaine topical 20% Ointment 1 matteo, Perineum, AsDirected bisacodyl 10 mg Suppository 10 mg 1 supp, Rectal, qDay dextrose 50% Solution Disp syringe 50 mL 25 gram(s) 50 mL, IV Push, AsDirected glycerin-witch gurpreet topical 10%-50% Pad 1 matteo, Topical, AsDirected hydrocortisone topical 25 mg rectal supp 25 mg 1 supp, Rectal, BID hydrocortisone-pramoxine topical 2.5%-1% Cream 4 gram(s) 1 matteo, Rectal, QID HYDROmorphone 0.5 mg/0.5 mL syringe 0.5 mg 0.5 mL, IV Push, q4h naloxone 0.4 mg/mL (1mL) vial 0.2 mg 0.5 mL, IV Push, AsDirected ondansetron 2 mg/ 1 mL 2 mL INJ 4 mg 2 mL, IV Push, q4h oxycodone 5 mg tablet (immediate release) 5 mg 1 tab(s), Oral, q4h simethicone 80 mg Chewable 80 mg 1 tab(s), Chewed, TID sodium biphosphate-sodium phosphate 19 gm-7 gm Enema 133 mL, Rectal, qDay Lab Results 05/14 09:15 WBC: 27.6 H Hgb: 7.7 L Hct: 22.8 L Platelet: 427 Neutrophil %: 84.9 H Glucose Level: 91 Sodium Level: 136 Potassium Level: 4.2 BUN: 8.0 Creatinine Lvl (s): 0.49 L EKG Electrocardiogram (EKG) - Ordered -- 06/25/24 7:31:00 EDT Assessment/Plan Orders: HYDROmorphone(Dilaudid), 0.5 mg= 0.5 mL, IV Push, q4h, PRN oxyCODONE(oxyCODONE 5 mg oral tablet ( IMMEDIATE release )), 5 mg= 1 tab(s), Oral, q4h, PRN Complete EKG, 06/25/24 7:31:00 EDT, 06/25/24 7:31:00 EDT Electrocardiogram(EKG), 06/25/24 7:31:00 EDT Time Spent 1. Abdominal cellulitis/surgical site infection: Patient with recent appendectomy on 06/16/2024 - Purulent drainage and concern for cellulitis on abdomen - Continue Zosyn, daptomycin, micafungin - Wound cultures pending - Surgery following - ID following -If white count continues to trend up, she will need CT scan of abdomen and pelvis as per ID 2. Intrauterine demise: Status post D&C for retained placenta on 06/25/2023 - [facility] following 3 . Acute blood loss anemia due to #2. 2units of blood ordered by primary team 4. Tachycardia, mostly sinus tachycardia due to #3, EKG ordered and pending. 5. Obesity, low-fat diet 6. Asthma: 7. Mild transaminitis, LFT improved. 8. Psychiatry was consulted for concern for depression. Patient is not interested in psychiatric medication. Encouraged her to go to outpatient counseling at [facility]. No need for inpatient psychiatric treatment. DVT prophylaxis per primary team Digitally Signed by MARIA M YIN MD on 06/25/2024 04:57 PM [facility] [id number] Consult note Chief complaint demise Subjective 19-year-old female status post demise seen today in the presence of her , patient permission. Family voiced concern that patient may have possibly been depressed for the past 1 month. During my evaluation, states her mood has been up and down because she has been stressed at work. 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 During my evaluation, this patient was appropriately grieving the loss of herchild. She was not manic. She was not psychotic. She was reality based. She adamantly and repeatedly denied suicidal thoughts. also stated she has never voiced suicidal thoughts. Patient states that due to work-related stress her sleep and appetite have both been erratic. Past psychiatric history this patient states that she did have outpatient counseling a few years ago. She is currently not engaged in outpatient behavioral health treatment. She has never been hospitalized. She has never taken psychiatric medications. Family history patient states both parents have a history of anxiety and depression Social history this patient lives with her . 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 She denies alcohol use and drug use Mental status exam at the time of this evaluation, this patient is alert and oriented in all spheres. Memory is intact. Mood is described as sad. Affect is congruent to stated mood. Patient is not psychotic. Patient adamantly denies suicidal thoughts. Her judgment and insight are intact. Speech is presented in a normal tone as well as normal pace Diagnostic impression adjustment disorder with depressed mood Treatment plan #1 at the present time, this patient is not interested in engaging in behavioral health treatment. I did strongly encourage her and her to go to outpatient counseling at the [facility]. Patient states I will think about it. Patient states that she receives a lot of support from her family as well as extended family. The patient also states she is not interested in psychiatric medication. #2 there is no indication for forced, involuntary inpatient psychiatric treatment. Patient is not psychotic. She is adamantly denying suicidal thoughts. states that he is comfortable having her return home. Patient is currently presenting a low, imminent risk of self-harm. Psychiatry will sign off. Please call as needed during this hospital stay CPT code 63084 Digitally Signed by ELIZABETH LAWSON MD on 06/25/2024 01:15 PM [facility] [id number] [facility] Progress note Date of Service 06/25/2024 Chief Complaint Abdominal pain Subjective Patient seen resting supine in the LDRP. Continues to complain of abdominal pain at surgical site. Objective Vitals and Measurements T: 36.8 C (Oral) TMIN: 36.5 C (Oral) TMAX: 37.65 C HR: 122 (Monitored) RR: 18 BP: 84/64 SpO2: 97% Intake and Output 7AM Yesterday to 7AM Today Intake and Output (Last 24 hours) Intake Administration Information 555.00 Output Urine Voided 300.00 Intra-Op EBL 400.00 Intra-Op Urine Catheter 400.00 Total Summary Total Intake 555.00 Total Output 1100.00 Fluid Balance -545.00 Physical Exam General: Awake and alert and in no apparent distress. Able to answer questions and speak in full sentences. Supine in bed. Sitting upright. HEENT: Mucous membranes moist and pink. Sclerae anicteric. PERRLA. NG tube present. Heart: Regular rate and rhythm. S1-S2 are present. Lungs: Chest rise symmetrical. Respirations unlabored. Clear to auscultation bilaterally. Abdomen: Soft tenderness noted to the incisional site. Nondistended. No guarding or rigidity. Bowelsounds 4 quadrants. Midline incision intact with ros, upper aspect. Lower incision has intermittent ros removed. Extremities: Freely moving. Skin: Normal color for ethnicity. No pallor or diaphoresis. No jaundice. Psychiatric: Calm and cooperative. Weight Dosing Weight: 105.3 kg (06/24/24) Dosing Weight: 105.3 kg (06/23/24) Medications Medications (25) Active Scheduled: (11) acetaminophen 500 mg Tablet 1,000 mg 2 tab(s), Oral, q6h DAPTOmycin 650 mg 13 mL, IV Piggyback, qDay docusate sodium 100 mg Capsule 100 mg 1 cap(s), Oral, BID ferrous sulfate 325 mg Tablet 325 mg 1 tab(s), Oral, qDay ketorolac 15 mg/mL vial 15 mg 1 mL, IV Push, q6hr methylergonovine 0.2 mg Tablet 0.2 mg 1 tab(s), Oral, q6h micafungin 100 mg, IV Piggyback, qDay Misc communication order ketorolac, Miscellaneous, qDay piperacillin-tazobactam PMX 4.5 gram(s) 130 mL, IV Piggyback, q8h polyethylene glycol 3350 - UD packet 17 gram(s) 15 mL, Oral, qDay tetanus/diphth/pertuss (Tdap) adult/adol 5 units-2.5 units-18.5 mcg/0.5 mL (Boostrix) 0.5 mL, Intramuscular, Vaccine Continuous: (3) Lactated Ringers 1,000 mL 1,000 mL, Intravenous, 125 mL/hr Lactated Ringers 1,000 mL 1,000 mL, Intravenous, 125 mL/hr oxytocin 20 unit(s) + LR Premix Diluent 500 mL 500 mL, Intravenous PRN: (11) benzocaine topical 20% Ointment 1 matteo, Perineum, AsDirected bisacodyl 10 mg Suppository 10 mg 1 supp, Rectal, qDay dextrose 50% Solution Disp syringe 50 mL 25 gram(s) 50 mL, IV Push, AsDirected glycerin-witch gurpreet topical 10%-50% Pad 1 matteo, Topical, AsDirected hydrocortisone topical 25 mg rectal supp 25 mg 1 supp, Rectal, BID hydrocortisone-pramoxine topical 2.5%-1% Cream 4 gram(s) 1 matteo, Rectal, QID hydromorphone 1 mg/mL (1mL) INJ 1 mg 1 mL, IV Push, q3h naloxone 0.4 mg/mL (1mL) vial 0.2 mg 0.5 mL, IV Push, AsDirected ondansetron 2 mg/ 1 mL 2 mL INJ 4 mg 2 mL, IV Push, q4h simethicone 80 mg Chewable 80 mg 1 tab(s), Chewed, TID sodium biphosphate-sodium phosphate 19 gm-7 gm Enema 133 mL, Rectal, qDay Lab Results 06/24 03:35 WBC: 21.9 H Hgb: 11.0 L Hct: 32.8 L Platelet: 343 Glucose Level: 88 Sodium Level: 136 Potassium Level: 3.8 BUN: <5.0 L Creatinine Lvl (s): 0.38 L EKG Electrocardiogram (EKG) - Ordered -- 06/25/24 7:31:00 EDT Assessment/Plan This patient is a 19-year-old female who had a demise of a 19-week . She also required D&C. Patient was admitted for possible surgical infection, general surgery's been asked to give recommendations. Vitals, labs, I/O reviewed. Tmax 36.5, otherwise hemodynamically stable and on room air. Awaiting laboratory data Upon examination this morning, patient has continued tenderness at the surgical site. Surgical site evaluated, redness improving. Lower aspect of incisions with intermittent dry packing noted, does have some purulent drainage. Patient is currently on IV Zosyn, daptomycin, and Mycamine. ID is following and giving recommendations for antibiotics. Agree with IV antibiotics. Continue dressing changes as previously ordered Case discussed with Dr. López, please see addendum to follow. Digitally Signed by MAUREEN DALEY on 06/25/2024 09:46 AM [facility] [id number] [facility] Progress note Date of Service 06/25/2024 Chief Complaint Abdominal pain Subjective Patient seen resting supine in the LDRP. Continues to complain of abdominal pain at surgical site. Objective Vitals and Measurements T: 36.8 C (Oral) TMIN: 36.5 C (Oral) TMAX: 37.65 C HR: 122 (Monitored) RR: 18 BP: 84/64 SpO2: 97% Intake and Output 7AM Yesterday to 7AM Today Intake and Output (Last 24 hours) Intake Administration Information 555.00 Output Urine Voided 300.00 Intra-Op EBL 400.00 Intra-Op Urine Catheter 400.00 Total Summary Total Intake 555.00 Total Output 1100.00 Fluid Balance -545.00 Physical Exam General: Awake and alert and in no apparent distress. Able to answer questions and speak in full sentences. Supine in bed. Sitting upright. HEENT: Mucous membranes moist and pink. Sclerae anicteric. PERRLA. NG tube present. Heart: Regular rate and rhythm. S1-S2 are present. Lungs: Chest rise symmetrical. Respirations unlabored. Clear to auscultation bilaterally. Abdomen: Soft tenderness noted to the incisional site. Nondistended. No guarding or rigidity. Bowelsounds 4 quadrants. Midline incision intact with ros, upper aspect. Lower incision has intermittent ros removed. Extremities: Freely moving. Skin: Normal color for ethnicity. No pallor or diaphoresis. No jaundice. Psychiatric: Calm and cooperative. Weight Dosing Weight: 105.3 kg (06/24/24) Dosing Weight: 105.3 kg (06/23/24) Medications Medications (25) Active Scheduled: (11) acetaminophen 500 mg Tablet 1,000 mg 2 tab(s), Oral, q6h DAPTOmycin 650 mg 13 mL, IV Piggyback, qDay docusate sodium 100 mg Capsule 100 mg 1 cap(s), Oral, BID ferrous sulfate 325 mg Tablet 325 mg 1 tab(s), Oral, qDay ketorolac 15 mg/mL vial 15 mg 1 mL, IV Push, q6hr methylergonovine 0.2 mg Tablet 0.2 mg 1 tab(s), Oral, q6h micafungin 100 mg, IV Piggyback, qDay Misc communication order ketorolac, Miscellaneous, qDay piperacillin-tazobactam PMX 4.5 gram(s) 130 mL, IV Piggyback, q8h polyethylene glycol 3350 - UD packet 17 gram(s) 15 mL, Oral, qDay tetanus/diphth/pertuss (Tdap) adult/adol 5 units-2.5 units-18.5 mcg/0.5 mL (Boostrix) 0.5 mL, Intramuscular, Vaccine Continuous: (3) Lactated Ringers 1,000 mL 1,000 mL, Intravenous, 125 mL/hr Lactated Ringers 1,000 mL 1,000 mL, Intravenous, 125 mL/hr oxytocin 20 unit(s) + LR Premix Diluent 500 mL 500 mL, Intravenous PRN: (11) benzocaine topical 20% Ointment 1 matteo, Perineum, AsDirected bisacodyl 10 mg Suppository 10 mg 1 supp, Rectal, qDay dextrose 50% Solution Disp syringe 50 mL 25 gram(s) 50 mL, IV Push, AsDirected glycerin-witch gurpreet topical 10%-50% Pad 1 matteo, Topical, AsDirected hydrocortisone topical 25 mg rectal supp 25 mg 1 supp, Rectal, BID hydrocortisone-pramoxine topical 2.5%-1% Cream 4 gram(s) 1 matteo, Rectal, QID hydromorphone 1 mg/mL (1mL) INJ 1 mg 1 mL, IV Push, q3h naloxone 0.4 mg/mL (1mL) vial 0.2 mg 0.5 mL, IV Push, AsDirected ondansetron 2 mg/ 1 mL 2 mL INJ 4 mg 2 mL, IV Push, q4h simethicone 80 mg Chewable 80 mg 1 tab(s), Chewed, TID sodium biphosphate-sodium phosphate 19 gm-7 gm Enema 133 mL, Rectal, qDay Lab Results 06/24 03:35 WBC: 21.9 H Hgb: 11.0 L Hct: 32.8 L Platelet: 343 Glucose Level: 88 Sodium Level: 136 Potassium Level: 3.8 BUN: <5.0 L Creatinine Lvl (s): 0.38 L EKG Electrocardiogram (EKG) - Ordered -- 06/25/24 7:31:00 EDT Assessment/Plan This patient is a 19-year-old female who had a demise of a 19-week . She also required D&C. Patient was admitted for possible surgical infection, general surgery's been asked to give recommendations. Vitals, labs, I/O reviewed. Tmax 36.5, otherwise hemodynamically stable and on room air. Awaiting laboratory data Upon examination this morning, patient has continued tenderness at the surgical site. Surgical siteevaluated, redness improving. Lower aspect of incisions with intermittent dry packing noted, does have some purulent drainage. Patient is currently on IV Zosyn, daptomycin, and Mycamine. ID is following and giving recommendations for antibiotics. Agree with IV antibiotics. Continue dressing changes as previously ordered Case discussed with Dr. López, please see addendum to follow. Digitally Signed by MAUREEN DALEY on 06/25/2024 09:46 AM [facility] [id number] Surgery Consult note Date of Service 06/24/2024 Reason for Consultation Surgical site infection Referring Physician Hospitalist History of Present Illness This is a split shared visit with myself and Dr. López. This patient is a 19-year-old female who is currently 19 weeks gestation, patient did have spontaneous delivery of her 19/4-week demised male fetus. She most recently underwent open appendectomy on 06/16/2024 due to acute perforated appendicitis. Patient was sent home on oral antibiotics after having received IV antibiotics during hospitalization. Patient presented to the ED with diaphoresis, vomiting, and abdominal pain for 1 day, noticed drainage from her incision as well as redness. ER workup includes: Hemodynamically stable, slightly tachycardic, afebrile. Initial WBCs 15.9, have up trended to 21.9 today, hemoglobin stable 12.4 Patient was admitted to medicine service, has been transferred to [facility] early this morning due to demise. Patient has delivered the fetus. General surgery has been asked to evaluate and give recommendations for her midline incision. Review of Systems All other pertinent positives and negatives are present in the HPI. All other systems are reviewed as negative unless otherwise previously mentioned Physical Exam Vitals and Measurements T: 36.8 C (Oral) TMIN: 36.8 C (Oral) TMAX: 37 C (Oral) HR: 113 (Monitored) RR: 16 BP: 136/65 SpO2: 96% HT: 177.8 cm WT: 105.3 kg BMI: 33.31 Weight Dosing Weight: 105.3 kg (06/24/24) Dosing Weight: 105.3 kg (06/23/24) General: Awake and alert and in no apparent distress. Able to answer questions and speak in full sentences. Supine in bed. HEENT: Mucous membranes moist and pink. Sclerae anicteric. PERRLA. Lungs: Chest rise symmetrical. Respirations unlabored. Clear to auscultation bilaterally. Abdomen: Soft with mild tenderness noted with palpation to the surgical incision. Nondistended. No guarding or rigidity. Bowel sounds 4 quadrants. Midline incision intact with surgical ros, slight redness surrounding the edges, purulent drainage from midline. Extremities: Freely moving. Skin: Normal color for ethnicity. No pallor or diaphoresis. No jaundice. Psychiatric: Calm and cooperative. Lab Results 06/24 03:35 WBC: 21.9 H Hgb: 11.0 L Hct: 32.8 L Platelet: 343 Glucose Level: 88 Sodium Level: 136 Potassium Level: 3.8 BUN: <5.0 L Creatinine Lvl (s): 0.38 L Assessment/Plan Orders: Communication Order (continuous), 06/24/24 8:03:00 EDT, Change lower midline incision daily, cleanse with normal saline, pack with gauze to the intermittent open areas., Constant order This patient is a 19-year-old female who is currently 19 weeks gestation, although she did have spontaneous delivery and demise this morning early. Patient was admitted for possible surgical site infection. General surgery's been asked to give recommendations. Patient does have leukocytosis with WBCs 21.9, hemoglobin stable. Upon examination this morning, patient's abdomen is soft, nondistended, bowel sounds are present. Midline incision is slightly reddened at the edges. Several ros were removed from the lower aspect of the incision, cultures were obtained. There is purulent drainage noted. Patient is currently onIV antibiotics. Midline incision was repacked with gauze. Dry sterile dressing applied and taped securely. Agree with continuing IV antibiotics during this time. Will continue daily dressing changes, cleansing incision with normal saline and repacking areas with gauze. Will continue to follow along with you. Case discussed with Dr. López, please see his addendum coral with further assessment/plan Problem List/Past Medical History Ongoing Procedure/Surgical History No qualifying data available. Medications Inpatient [place] Hemorrhoidal 20% rectal ointment, 1 matteo, Perineum, AsDirected, PRN Analpram-HC 2.5%-1% rectal cream, 1 matteo, Rectal, QID, PRN Anusol-HC 25 mg rectal suppository, 25 mg= 1 supp, Rectal, BID, PRN Boostrix (Tdap), 0.5 mL, Intramuscular, Vaccine Colace, 100 mg= 1 cap(s), Oral, BID, PRN Cytotec, 400 mcg= 2 tab(s), Vaginal, q4h Dextrose 50% IV Push, 25 gram(s)= 50 mL, IV Push, AsDirected, PRN Dilaudid, 1 mg= 1 mL, IV Push, q3h, PRN Dulcolax Laxative, 10 mg= 1 supp, Rectal, qDay, PRN Feosol, 325 mg= 1 tab(s), Oral, qDay Fleet Enema, 133 mL, Rectal, qDay, PRN glycerin-witch gurpreet 50% topical pad, 1 matteo, Topical, AsDirected, PRN hydromorphone RESTAURANT CREW (0.2mg/1 mL) 10 mg, 10 mg= 50 mL, Intravenous magnesium sulfate for IV bolus, 2 gram(s)= 50 mL, IV Piggyback, Once Miralax Powder Packet, 17 gram(s)= 15 mL, Oral, qDay, PRN miSOPROStol, 600 mcg= 3 tab(s), Vaginal, Once Motrin, 600 mg= 1 tab(s), Oral, q6h, PRN Mylicon, 80 mg= 1 tab(s), Chewed, TID, PRN naloxone, 0.2 mg= 0.5 mL, IV Push, AsDirected, PRN NS 1,000 mL, 1000 mL, Intravenous Oxytocin for IV (mL/hr) 20 unit(s) + LR Premix Diluent 500 mL Percocet 325/5, 2 tab(s), Oral, q4h, PRN Rhophylac, 300 mcg= 2 mL, Intramuscular, AsDirected, PRN Tylenol, 650 mg= 2 tab(s), Oral, q4h, PRN Tylenol, 650 mg= 2 tab(s), Oral, q6h, PRN Zofran, 4 mg= 2 mL, IV Push, q4h, PRN Zosyn, 4.5 gram(s)= 130 mL, IV Piggyback, q8h Home amoxicillin-clavulanate 875 mg-125 mg oral tablet, 1 tab(s), Oral, BIDM MiraLax oral powder for reconstitution, 17 gram(s), Oral, qDay, PRN Pepcid 20 mg oral tablet, 20 mg= 1 tab(s), Oral, qDay, Not taking Tylenol Extra Strength 500 mg oral tablet, 1000 mg= 2 tab(s), Oral, q6hr, PRN Allergies Vicks Vapo Rub topical ointment Social History Alcohol Use: Never., 06/15/2024 Home/Environment Living situation: Home/Independent. Financial concerns: No., 06/15/2024 Nutrition/Health Type of diet: Regular., 06/15/2024 Sexual Sexually active: Yes., 06/15/2024 Substance Abuse Use: Never., 06/15/2024 Tobacco Nicotine Use: Never (less than 100 in lifetime)., 06/15/2024 Nicotine Use: denies., 06/13/2024 Family History Cancer: Grandparent. Diabetes: Father. Stroke: Father. Health Status Family Member(s) Immunizations No qualifying data available. Digitally Signed by MAUREEN DALEY on 06/24/2024 08:13 AM [facility] [id number] Infectious disease Consult note Date of Service June 24, 2024 Reason for Consultation Sepsis suspected Chorioamnionitis with demise Referring Physician Hospitalist team/[facility] team History of Present Illness 19-year-old female who was 19-week gestation, had spontaneous delivery for her demised male fetus, recently underwent appendectomy on 06/16/2024 secondary to acute perforated appendicitis, discharged on oral antibiotic therapy, admitted for the above, currently is recovering well and living in delivery area, denies acute symptoms, reviewed the labs and data clinical course, discussed with the primary team and family at bedside and all their questions were answered, discussed with nursing staff Review of Systems Abdominal pain is improving otherwise 10 point review of systems negative Physical Exam Vitals and Measurements T: 37.0 C (Oral) TMIN: 36.7 C (Oral) TMAX: 37.65 C HR: 116 (Monitored) RR: 18 BP: 114/68 SpO2: 97% HT: 177.8 cm WT: 105.3 kg BMI: 33.31 Weight Dosing Weight: 105.3 kg (06/24/24) Dosing Weight: 105.3 kg (06/23/24) General Appearance: Awake, alert, and oriented HEENT: Normocephaly. PERRL Neck: Normal without lymphadenopathy Cardiac: Heart regular rhythm Lungs: Clear Poor dentition Abdomen: Soft, mild distention but abdominal incisions healing well, minimal tenderness Extremities:Warm without clubbing, cyanosis or edema. Neurological: No deficits Skin: Warm, dry, intact. No rashes Psychiatric: No abnormal behaviors Lab Results 06/24 03:35 WBC: 21.9 H Hgb: 11.0 L Hct: 32.8 L Platelet: 343 Glucose Level: 88 Sodium Level: 136 Potassium Level: 3.8 BUN: <5.0 L Creatinine Lvl (s): 0.38 L Imaging Results and Diagnostics Reviewed available data with patient and family and nursing staff and [facility] team Assessment/Plan Orders: DAPTOmycin, 625 mg, 6 mg/kg, IV Piggyback, qDay CPK, 06/25/24 5:00:00 EDT, Next AM Draw (one day only), Blood, Once, Nurse Collect, Stop date 06/25/24 5:00:00 EDT Abdominal wall cellulitis Recent appendectomy Chorioamnionitis with delivery of demised fetus status post D&C Intrauterine demise, [facility] team is following Obesity Asthma Poor dentition The plan of care was discussed at length with patient and at the bedside Discussed with primary team Continue Zosyn but add daptomycin and Mycamine pending culture results including tissue cultures given recent surgery and to cover gram-negative's as well as resistant gram-positive pathogens and fungal etiologies Patient is clinically improving Will follow CPK levels for therapeutic drug monitoring evaluation Will follow culture results and clinical course and microdata Thank you for allowing me to see this patient in consultation We provided service elements including disease transmission risk assessment and mitigation, public health investigation, analysis and testing, and complex antimicrobial therapy counseling and treatment. We discussed ways of infection control and prevention. Risks and benefits of complex antimicrobial therapy was discussed at length with patient and staff. Plan of care has been discussed with patient at bedside, we discussed potential side effects of antimicrobial therapy/antifungal/antiviral therapy. Problem List/Past Medical History Ongoing Procedure/Surgical History No qualifying data available. Medications Inpatient [place] Hemorrhoidal 20% rectal ointment, 1 matteo, Perineum, AsDirected, PRN Analpram-HC 2.5%-1% rectal cream, 1 matteo, Rectal, QID, PRN Anusol-HC 25 mg rectal suppository, 25 mg= 1 supp, Rectal, BID, PRN Boostrix (Tdap), 0.5 mL, Intramuscular, Vaccine Colace, 100 mg= 1 cap(s), Oral, BID, PRN DAPTOmycin, 625 mg, 6 mg/kg, IV Piggyback, qDay Dextrose 50% IV Push, 25 gram(s)= 50 mL, IV Push, AsDirected, PRN Dilaudid, 1 mg= 1 mL, IV Push, q3h, PRN Dulcolax Laxative, 10 mg= 1 supp, Rectal, qDay, PRN Feosol, 325 mg= 1 tab(s), Oral, qDay Fleet Enema, 133 mL, Rectal, qDay, PRN glycerin-witch gurpreet 50% topical pad, 1 matteo, Topical, AsDirected, PRN Lactated Ringers Infusion 1,000 mL, 1000 mL, Intravenous LR 1,000 mL, 1000 mL, Intravenous Methergine, 0.2 mg= 1 tab(s), Oral, q6h Miralax Powder Packet, 17 gram(s)= 15 mL, Oral, qDay, PRN Mylicon, 80 mg= 1 tab(s), Chewed, TID, PRN naloxone, 0.2 mg= 0.5 mL, IV Push, AsDirected, PRN Oxytocin for IV (mL/hr) 20 unit(s) + LR Premix Diluent 500 mL Percocet 325-5 mg [PACU], 1 tab(s), Oral, Once, PRN Pharmacy See ORDER COMMENTS, ketorolac, Miscellaneous, qDay Toradol, 15 mg= 1 mL, IV Push, q6hr Tylenol, 650 mg= 2 tab(s), Oral, q6h, PRN Zofran, 4 mg= 2 mL, IV Push, q4h, PRN Zofran, 4 mg= 2 mL, IV Push, q4h, PRN Zosyn, 4.5 gram(s)= 130 mL, IV Piggyback, q8h Home amoxicillin-clavulanate 875 mg-125 mg oral tablet, 1 tab(s), Oral, BIDM MiraLax oral powder for reconstitution, 17 gram(s), Oral, qDay, PRN Pepcid 20 mg oral tablet, 20 mg= 1 tab(s), Oral, qDay, Not taking Tylenol Extra Strength 500 mg oral tablet, 1000 mg= 2 tab(s), Oral, q6hr, PRN Allergies Vicks Vapo Rub topical ointment Social History Alcohol Use: Never., 06/15/2024 Home/Environment Living situation: Home/Independent. Financial concerns: No., 06/15/2024 Nutrition/Health Type of diet: Regular., 06/15/2024 Sexual Sexually active: Yes., 06/15/2024 Substance Abuse Use: Never., 06/15/2024 Tobacco Nicotine Use: Never (less than 100 in lifetime)., 06/15/2024 Nicotine Use: denies., 06/13/2024 Family History Cancer: Grandparent. Diabetes: Father. Stroke: Father. Health Status Family Member(s) Immunizations No qualifying data available. Digitally Signed by MAVERICK SANTACRUZ BA, MD on 06/24/2024 07:23 PM [facility] [id number] Anesthesiology Consult note Patient: KIM NGUYEN Age: 19 years Sex: Female : 2005 Associated Diagnoses: None Author: JET HARRIS Preoperative Information Procedure/ Case: D&C Time of last food or liquid consumption: 06/23/2024 00:00:00 Anesthesia history Patient's history: negative. Family's history: negative. Review of Systems Ear/Nose/Mouth/Throat: Negative. Respiratory: Asthma (albuterol not used in years). Cardiovascular: Negative. Gastrointestinal: Negative. Genitourinary: Negative. Endocrine: Negative. Musculoskeletal: Negative. Integumentary: Negative. Neurologic: Negative. Reproductive: Para Scoring , Week's Gestation 19.4. Histories Procedure history: 06/16/24 Lap appy > open appy, drain left in place. Physical Examination Airway: Normal temporomandibular joint mobility, Nares patent, Normal mouth, No damage to dentition, Normal throat, Normal neck range of motion, Trachea midline. Mallampati classification: III (soft palate, base of uvula visible). Head: Normocephalic. Dentition Evaluation: Intact, Own teeth. Neck: Non-tender. Respiratory: Respirations are non-labored. Cardiovascular: Tachycardia. Heart Sounds: Normal. Gastrointestinal: Non-tender. Musculoskeletal Normal range of motion. Integumentary: Intact, Warm. Neurologic: Alert, Oriented. Assessment and Plan [place] [employer] Anesthesiologists (ASA) physical status classification: Class II. Anesthetic Preoperative Plan Anesthetic technique: General. Maintenance airway: Laryngeal mask airway. Postoperative pain management: Per surgeon. Risks discussed: nausea, vomiting, headache, sore throat, dental injury, hypotension, allergic reaction, serious complications. Informed consent: signed by patient. Notes: Lap appy to open appy on 06/16/24, discharged home 06/19/24. Readmitted overnight w/diaphoresis and tachycardia.. Digitally Signed by JET HARRIS on 06/24/2024 10:24 AM Digitally Signed by SALUD MONREAL DO on 06/24/2024 01:10 PM [facility] [id number] Surgery Consult note Date of Service 06/24/2024 Reason for Consultation Surgical site infection Referring Physician Hospitalist History of Present Illness This is a split shared visit with myself and Dr. López. This patient is a 19-year-old female who is currently 19 weeks gestation, patient did have spontaneous delivery of her 19/4-week demised male fetus. She most recently underwent open appendectomy on 06/16/2024 due to acute perforated appendicitis. Patient was sent home on oral antibiotics after having received IV antibiotics during hospitalization. Patient presented to the ED with diaphoresis, vomiting, and abdominal pain for 1 day, noticed drainage from her incision as well as redness. ER workup includes: Hemodynamically stable, slightly tachycardic, afebrile. Initial WBCs 15.9, have up trended to 21.9 today, hemoglobin stable 12.4 Patient was admitted to medicine service, has been transferred to LDRP early this morning due to demise. Patient has delivered the fetus. General surgery has been asked to evaluate and give recommendations for her midline incision. Review of Systems All other pertinent positives and negatives are present in the HPI. All other systems are reviewed as negative unless otherwise previously mentioned Physical Exam Vitals and Measurements T: 36.8 C (Oral) TMIN: 36.8 C (Oral) TMAX: 37 C (Oral) HR: 113 (Monitored) RR: 16 BP: 136/65 SpO2: 96% HT: 177.8 cm WT: 105.3 kg BMI: 33.31 Weight Dosing Weight: 105.3 kg (06/24/24) Dosing Weight: 105.3 kg (06/23/24) General: Awake and alert and in no apparent distress. Able to answer questions and speak in full sentences. Supine in bed. HEENT: Mucous membranes moist and pink. Sclerae anicteric. PERRLA. Lungs: Chest rise symmetrical. Respirations unlabored. Clear to auscultation bilaterally. Abdomen: Soft with mild tenderness noted with palpation to the surgical incision. Nondistended. No guarding or rigidity. Bowel sounds 4 quadrants. Midline incision intact with surgical ros, slight redness surrounding the edges, purulent drainage from midline. Extremities: Freely moving. Skin: Normal color for ethnicity. No pallor or diaphoresis. No jaundice. Psychiatric: Calm and cooperative. Lab Results 06/24 03:35 WBC: 21.9 H Hgb: 11.0 L Hct: 32.8 L Platelet: 343 Glucose Level: 88 Sodium Level: 136 Potassium Level: 3.8 BUN: <5.0 L Creatinine Lvl (s): 0.38 L Assessment/Plan Orders: Communication Order (continuous), 06/24/24 8:03:00 EDT, Change lower midline incision daily, cleanse with normal saline, pack with gauze to the intermittent open areas., Constant order This patient is a 19-year-old female who is currently 19 weeks gestation, although she did have spontaneous delivery and demise this morning early. Patient was admitted for possible surgical site infection. General surgery's been asked to give recommendations. Patient does have leukocytosis with WBCs 21.9, hemoglobin stable. Upon examination this morning, patient's abdomen is soft, nondistended, bowel sounds are present. Midline incision is slightly reddened at the edges. Several ros were removed from the lower aspect of the incision, cultures were obtained. There is purulent drainage noted. Patient is currently onIV antibiotics. Midline incision was repacked with gauze. Dry sterile dressing applied and taped securely. Agree with continuing IV antibiotics during this time. Will continue daily dressing changes, cleansing incision with normal saline and repacking areas with gauze. Will continue to follow along with you. Case discussed with Dr. López, please see his addendum tofollow with further assessment/plan Problem List/Past Medical History Ongoing Procedure/Surgical History No qualifying data available. Medications Inpatient [place] Hemorrhoidal 20% rectal ointment, 1 matteo, Perineum, AsDirected, PRN Analpram-HC 2.5%-1% rectal cream, 1 matteo, Rectal, QID, PRN Anusol-HC 25 mg rectal suppository, 25 mg= 1 supp, Rectal, BID, PRN Boostrix (Tdap), 0.5 mL, Intramuscular, Vaccine Colace, 100 mg= 1 cap(s), Oral, BID, PRN Cytotec, 400 mcg= 2 tab(s), Vaginal, q4h Dextrose 50% IV Push, 25 gram(s)= 50 mL, IV Push, AsDirected, PRN Dilaudid, 1 mg= 1 mL, IV Push, q3h, PRN Dulcolax Laxative, 10 mg= 1 supp, Rectal, qDay, PRN Feosol, 325 mg= 1 tab(s), Oral, qDay Fleet Enema, 133 mL, Rectal, qDay, PRN glycerin-witch gurpreet 50% topical pad, 1 matteo, Topical, AsDirected, PRN hydromorphone RESTAURANT CREW (0.2mg/1 mL) 10 mg, 10 mg= 50 mL, Intravenous magnesium sulfate for IV bolus, 2 gram(s)= 50 mL, IV Piggyback, Once Miralax Powder Packet, 17 gram(s)= 15 mL, Oral, qDay, PRN miSOPROStol, 600 mcg= 3 tab(s), Vaginal, Once Motrin, 600 mg= 1 tab(s), Oral, q6h, PRN Mylicon, 80 mg= 1 tab(s), Chewed, TID, PRN naloxone, 0.2 mg= 0.5 mL, IV Push, AsDirected, PRN NS 1,000 mL, 1000 mL, Intravenous Oxytocin for IV (mL/hr) 20 unit(s) + LR Premix Diluent 500 mL Percocet 325/5, 2 tab(s), Oral, q4h, PRN Rhophylac, 300 mcg= 2 mL, Intramuscular, AsDirected, PRN Tylenol, 650 mg= 2 tab(s), Oral, q4h, PRN Tylenol, 650 mg= 2 tab(s), Oral, q6h, PRN Zofran, 4 mg= 2 mL, IV Push, q4h, PRN Zosyn, 4.5 gram(s)= 130 mL, IV Piggyback, q8h Home amoxicillin-clavulanate 875 mg-125 mg oral tablet, 1 tab(s), Oral, BIDM MiraLax oral powder for reconstitution, 17 gram(s), Oral, qDay, PRN Pepcid 20 mg oral tablet, 20 mg= 1 tab(s), Oral, qDay, Not taking Tylenol Extra Strength 500 mg oral tablet, 1000 mg= 2 tab(s), Oral, q6hr, PRN Allergies Vicks Vapo Rub topical ointment Social History Alcohol Use: Never., 06/15/2024 Home/Environment Living situation: Home/Independent. Financial concerns: No., 06/15/2024 Nutrition/Health Type of diet: Regular., 06/15/2024 Sexual Sexually active: Yes., 06/15/2024 Substance Abuse Use: Never., 06/15/2024 Tobacco Nicotine Use: Never (less than 100 in lifetime)., 06/15/2024 Nicotine Use: denies., 06/13/2024 Family History Cancer: Grandparent. Diabetes: Father. Stroke: Father. Health Status Family Member(s) Immunizations No qualifying data available. Digitally Signed by MAUREEN DALEY on 06/24/2024 08:13 AM [facility] [id number] Obstetrics Consult note Date of Service 06/24/2024 Reason for Consultation Inevitable Referring Physician Dr. Alfaro History of Present Illness Pt is a 19 yo at 19w4d, with TUSHAR 11/14/2024 by LMP=12wk US. She recently underwent an open appendectomy on 06/[address] óLpez for acute perforated appendicitis with purulent peritonitis. She was discharged on on 06/19. She represented overnight with abdominal pain, tachycardia, subjective fever, and vomiting. She was found to have a leukocytosis to 21.9. She was readmitted for management of post-op infection. OB was consulted early this AM after pt reports feeling pelvic pressure after getting up to use thebathroom with bulging membranes noted on visual exam by Dr. Alfaro. Residents appeared promptly at bedside. Careful cervical exam revealed parts within the vagina with bulging membranes spreading the labia majora. Cervix was not appreciated, however, exam was limited by membranes and patient discomfort. She has been feeling abdominal pain at her surgical site and has felt constipated all night. She denies feeling pelvic cramping. Denies vaginal bleeding. She has not followed-up with OB since her discharge on 06/19. Patient is complicated by inevitable , concern for septic , post-op infection, obesity, and asthma OBGYN: [facility] Hx: :Current Review of Systems See HPI Physical Exam Vitals and Measurements T: 37 C (Oral) HR: 117 RR: 16 BP: 131/71 SpO2: 96% HT: 177.8 cm WT: 105.3 kg BMI: 33.31 Weight Dosing Weight: 105.3 kg (06/23/24) General: A&O x3 HEENT: normocephalic, atraumatic Cardio: RRR Lungs: Breathing w/out difficulty, no use of accessory muscles GI: non-tender to palpation, soft, gravid, midline abdominal incision Extremities: mild bilateral edema SSE: See above Lab Results 06/24 03:35 WBC: 21.9 H Hgb: 11.0 L Hct: 32.8 L Platelet: 343 Glucose Level: 88 Sodium Level: 136 Potassium Level: 3.8 BUN: <5.0 L Creatinine Lvl (s): 0.38 L Imaging Results and Diagnostics 06/24/2024: Formal US with cardiac activity verbally reported by tech with formal report pending Assessment/Plan Pt is a 19 yo at 19w4d, with TUSHAR 11/14/2024 by LMP=12wk US. She has been readmitted under the hospitalist service with gen surg consulted due to post-op infection after open appendectomy on 06/16 for perforated appendicitis. BLOW UP OPERATOR was consulted when patient was found to have membranes bulging from her vagina with demise on BSUS. Patient is complicated by post-op infection, obesity, and asthma. >>Inevitable - Transfer to L&D - Cardiac activity appreciated on formal US - Membranes are bulging out of vagina with palpable parts within the vaginal vault - Given pt's previable gestational age, miscarriage is unfortunately pending at this time - Pt counseled on pain control options and would like RESTAURANT CREW - Given patient's significant recent abdominal infection, there is concern for possible septic - Will continue Zosyn as below and discuss with attending physican >>Post-operative infection - Hospitalist primary with gen surg consulted - Management per these teams - Pt currently on IV Zosyn >>Obesity - BMI 33 on admission >>Asthma - Controlled Discussed with Dr. Bro. senior resident Problem List/Past Medical History Obesity Asthma Procedure/Surgical History 06/19/2024 Open appendectomy Medications Inpatient Dextrose 50% IV Push, 25 gram(s)= 50 mL, IV Push, AsDirected, PRN Dilaudid, 1 mg= 1 mL, IV Push, q3h, PRN Miralax Powder Packet, 17 gram(s)= 15 mL, Oral, qDay, PRN NS 1,000 mL, 1000 mL, Intravenous Percocet 325/5, 2 tab(s), Oral, q4h, PRN Tylenol, 650 mg= 2 tab(s), Oral, q4h, PRN Zofran, 4 mg= 2 mL, IV Push, q4h, PRN Zosyn, 4.5 gram(s)= 130 mL, IV Piggyback, q8h Home amoxicillin-clavulanate 875 mg-125 mg oral tablet, 1 tab(s), Oral, BIDM MiraLax oral powder for reconstitution, 17 gram(s), Oral, qDay, PRN Pepcid 20 mg oral tablet, 20 mg= 1 tab(s), Oral, qDay, Not taking Tylenol Extra Strength 500 mg oral tablet, 1000 mg= 2 tab(s), Oral, q6hr, PRN Allergies Vicks Vapo Rub topical ointment Social History Alcohol Use: Never., 06/15/2024 Home/Environment Living situation: Home/Independent. Financial concerns: No., 06/15/2024 Nutrition/Health Type of diet: Regular., 06/15/2024 Sexual Sexually active: Yes., 06/15/2024 Substance Abuse Use: Never., 06/15/2024 Tobacco Nicotine Use: Never (less than 100 in lifetime)., 06/15/2024 Nicotine Use: denies., 06/13/2024 Family History Denies a family history of: -problems with anesthesia, including malignant hyperthermia -bleeding/clotting disorders Digitally Signed by SHAHRIAR SMYTH MD on 06/24/2024 06:24 AM Digitally Signed by SHAHRIAR SMYTH MD on 06/24/2024 06:55 AM Digitally Signed by JUSTINA BRO DO on 06/24/2024 06:56 AM Digitally Signed by JUSTINA BRO DO on 06/24/2024 07:02 AM [facility] [id number] Obstetrics Consult note Date of Service 06/24/2024 Reason for Consultation Inevitable Referring Physician Dr. Alfaro History of Present Illness Pt is a 19 yo at 19w4d, with TUSHAR 11/14/2024 by LMP=12wk US. She recently underwent an open appendectomy on 06/[address] López for acute perforated appendicitis with purulent peritonitis. She was discharged on on 06/19. She represented overnight with abdominal pain, tachycardia, subjective fever, and vomiting. She was found to have a leukocytosis to 21.9. She was readmitted for management of post-op infection. OB was consulted early this AM after pt reports feeling pelvic pressure after getting up to use thebathroom with bulging membranes noted on visual exam by Dr. Alfaro. Residents appeared promptly at bedside. Careful cervical exam revealed parts within the vagina with bulging membranes spreading the labia majora. Cervix was not appreciated, however, exam was limited by membranes and patient discomfort. She has been feeling abdominal pain at her surgical site and has felt constipated all night. She denies feeling pelvic cramping. Denies vaginal bleeding. She has not followed-up with OB since her discharge on 06/19. Patient is complicated by inevitable , concern for septic , post-op infection, obesity, and asthma OBGYN: [facility] Hx: :Current Review of Systems See HPI Physical Exam Vitals and Measurements T: 37 C (Oral) HR: 117 RR: 16 BP: 131/71 SpO2: 96% HT: 177.8 cm WT: 105.3 kg BMI: 33.31 Weight Dosing Weight: 105.3 kg (06/23/24) General: A&O x3 HEENT: normocephalic, atraumatic Cardio: RRR Lungs: Breathing w/out difficulty, no use of accessory muscles GI: non-tender to palpation, soft, gravid, midline abdominal incision Extremities: mild bilateral edema SSE: See above Lab Results 06/24 03:35 WBC: 21.9 H Hgb: 11.0 L Hct: 32.8 L Platelet: 343 Glucose Level: 88 Sodium Level: 136 Potassium Level: 3.8 BUN: <5.0 L Creatinine Lvl (s): 0.38 L Imaging Results and Diagnostics 06/24/2024: Formal US with cardiac activity verbally reported by tech with formal report pending Assessment/Plan Pt is a 19 yo at 19w4d, with TUSHAR 11/14/2024 by LMP=12wk US. She has been readmitted under the hospitalist service with gen surg consulted due to post-op infection after open appendectomy on 06/16 for perforated appendicitis. BLOW UP OPERATOR was consulted when patient was found to have membranes bulging from her vagina with demise on BSUS. Patient is complicated by post-op infection, obesity, and asthma. >>Inevitable - Transfer to L&D - Cardiac activity appreciated on formal US - Membranes are bulging out of vagina with palpable parts within the vaginal vault - Given pt's previable gestational age, miscarriage is unfortunately pending at this time - Pt counseled on pain control options and would like RESTAURANT CREW - Given patient's significant recent abdominal infection, there is concern for possible septic - Will continue Zosyn as below and discuss with attending physican >>Post-operative infection - Hospitalist primary with gen surg consulted - Management per these teams - Pt currently on IV Zosyn >>Obesity - BMI 33 on admission >>Asthma - Controlled Discussed with Dr. Bro. senior resident Problem List/Past Medical History Obesity Asthma Procedure/Surgical History 06/19/2024 Open appendectomy Medications Inpatient Dextrose 50% IV Push, 25 gram(s)= 50 mL, IV Push, AsDirected, PRN Dilaudid, 1 mg= 1 mL, IV Push, q3h, PRN Miralax Powder Packet, 17 gram(s)= 15 mL, Oral, qDay, PRN NS 1,000 mL, 1000 mL, Intravenous Percocet 325/5, 2 tab(s), Oral, q4h, PRN Tylenol, 650 mg= 2 tab(s), Oral, q4h, PRN Zofran, 4 mg= 2 mL, IV Push, q4h, PRN Zosyn, 4.5 gram(s)= 130 mL, IV Piggyback, q8h Home amoxicillin-clavulanate 875 mg-125 mg oral tablet, 1 tab(s), Oral, BIDM MiraLax oral powder for reconstitution, 17 gram(s), Oral, qDay, PRN Pepcid 20 mg oral tablet, 20 mg= 1 tab(s), Oral, qDay, Not taking Tylenol Extra Strength 500 mg oral tablet, 1000 mg= 2 tab(s), Oral, q6hr, PRN Allergies Vicks Vapo Rub topical ointment Social History Alcohol Use: Never., 06/15/2024 Home/Environment Living situation: Home/Independent. Financial concerns: No., 06/15/2024 Nutrition/Health Type of diet: Regular., 06/15/2024 Sexual Sexually active: Yes., 06/15/2024 Substance Abuse Use: Never., 06/15/2024 Tobacco Nicotine Use: Never (less than 100 in lifetime)., 06/15/2024 Nicotine Use: denies., 06/13/2024 Family History Denies a family history of: -problems with anesthesia, including malignant hyperthermia -bleeding/clotting disorders Digitally Signed by SHAHRIAR SMYTH MD on 06/24/2024 06:24 AM Digitally Signed by SHAHRIAR SMYTH MD on 06/24/2024 06:55 AM Digitally Signed by JUSTINA BRO DO on 06/24/2024 06:56 AM Digitally Signed by JUSTINA BRO DO on 06/24/2024 07:02 AM [facility] [id number] History and physical note Date of Service 06/23/2024 Chief Complaint post op infection History of Present Illness 19-year-old female who is 19 weeks recently admitted for acute appendicitis underwent an appendectomy 06/16 had a drain placed while inpatient which was removed prior to discharge sent home on Augmentin is presenting with diaphoresis, vomiting and abdominal pain x 1 day so she went to the emergency department at [place] In the emergency department Vital signs significant for tachycardia with a heart rate of 115 CBC leukocytosis with a WBC of 15.9 H&H 12/37 platelets 343 BMP glucose 95 sodium 137 potassium 3.5 chloride 101 CO2 22 creatinine 0.4 BUN 6 LFTs hypoalbuminemic at 2.5 otherwise lactic acid 1.1 blood cultures drawn started on Zosyn fluids morphine and Zofran in the emergency department I personally spoke to the ED physician Dr. Vallejo regarding the patient's presentation who was concerned regarding cellulitis of her abdomen Patient was seen and examined upon arrival for the presence of her nurse Caitie Review of Systems All pertinent positive and negative review of systems as per HPI, all other review of systems reviewed and negative Physical Exam Vitals and Measurements T: 37 C (Oral) HR: 117 RR: 16 BP: 131/71 SpO2: 96% HT: 177.8 cm WT: 105.3 kg BMI: 33.31 Weight Dosing Weight: 105.3 kg (06/23/24) GENERAL:Well nourished ; no acute distress. ASSISTIVE DEVICES: None PSYCHIATRIC: appropriate HEENT moist mucous membranes extraocular muscles intact CARDIOVASCULAR: Regular rate, regular rhythm, no murmurs noted. Notrace lower extremity pitting edema. No lymphedema. Dorsalis Pedis pulses+2/4 blaterally . Posterior Tibialis pulses+2/4 bilaterally . RESPIRATORY: Regular rate and depth; no distress, RIGHT lungclear ; LEFT lungclear . Breath soundsnormal . ABDOMEN tender to palpation in the right and left lower quadrants, abdomen is soft, nondistended, incisions are clean dry and intact NEURO: no focal deficits DERM: No cellulitis appreciated Lab Results No 36 Hour Lab Data Assessment/Plan 19-year-old female who is 19 weeks is presenting with fever vomiting found to have a leukocytosis and tachycardia with abdominal tenderness on exam after a appendectomy 8 days ago will continue IV Zosyn, keep her n.p.o., hydrate with IV fluids I did discuss the case with general surgery on-call Dr. Kumar regarding my concern for peritonitis he did come and see and examined the patient did not feel that the patient had peritonitis. I personally do not appreciate any cellulitis. Will treat for postop infection General Surgeon Dr. Kumar discussed the case with Dr. López who will see the patient in consult tomorrow 19 weeks less than 22 weeks is nonviable thus OB was not consulted DVT prophylaxis SCDs Full code Patient was admitted for the above paged by nursing staff sac bulging from vagina, seen and examined at bedside w nurse Lizett rh abo ordered, if rh negative give rhogam, additional pain meds ordered, profile grinder technician paged Problem List/Past Medical History Ongoing Procedure/Surgical History No qualifying data available. Appendectomy Medications Home Medications (4) Active amoxicillin-clavulanate 875 mg-125 mg oral tablet 1 tab(s), Oral, BIDM MiraLax oral powder for reconstitution 17 gram(s), PRN, Oral, qDay Pepcid 20 mg oral tablet 20 mg = 1 tab(s), Oral, qDay Tylenol Extra Strength 500 mg oral tablet 1,000 mg = 2 tab(s), PRN, Oral, q6hr Allergies Vicks Vapo Rub topical ointment Social History Alcohol Use: Never., 06/15/2024 Home/Environment Living situation: Home/Independent. Financial concerns: No., 06/15/2024 Nutrition/Health Type of diet: Regular., 06/15/2024 Sexual Sexually active: Yes., 06/15/2024 Substance Abuse Use: Never., 06/15/2024 Tobacco Nicotine Use: Never (less than 100 in lifetime)., 06/15/2024 Nicotine Use: denies., 06/13/2024 Family History Cancer: Grandparent. Diabetes: Father. Stroke: Father. Health Status Family Member(s) Immunizations No qualifying data available. Code Status Code Status - Ordered -- 06/23/24 22:18:00 EDT, Full Code, Constant Order Digitally Signed by EDITH ALFARO MD on 06/24/2024 12:16 AM Digitally Signed by EDITH ALFARO MD on 06/24/2024 12:18 AM Digitally Signed by EDITH ALFARO MD on 06/24/2024 05:33 AM Digitally Signed by EDITH ALFARO MD on 06/24/2024 05:34 AM Digitally Signed by EDITH ALFARO MD on 06/24/2024 05:35 AM Digitally Signed by EDITH ALFARO MD on 06/24/2024 05:38 AM [id number] Evaluation + Plan noteExtracted from: Title:History and Physical Author:EDITH ALFARO Date:06/23/24 19-year-old female who is 19 weeks is presenting with fever vomiting found to have a leukocytosis and tachycardia with abdominal tenderness on exam after a appendectomy 8 days ago will continue IV Zosyn, keep her n.p.o., hydrate with IV fluids I did discuss the case with general surgery on-call Dr. Kumar regarding my concern for peritonitis he did come and see and examined the patient did not feel that the patient had peritonitis. I personally do not appreciate any cellulitis. Will treat for postop infection General Surgeon Dr. Kumar discussed the case with Dr. López who will see the patient in consult tomorrow 19 weeks less than 22 weeks is nonviable thus OB was not consulted DVT prophylaxis SCDs Full code Patient was admitted for the above paged by nursing staff sac bulging from vagina, seen and examined at bedside w nurse Lizett rh abo ordered, if rh negative give rhogam, additional pain meds ordered, profile grinder technician paged Future Appointments Appointment Date:07/04/2024 08:45:00 AM Scheduled Provider:MICHAEL LÓPEZ MD Location:Gen Surg [facility] Appointment Type:GS HAND BOOKED FOLDER AND STITCHER Post Op [facility] 05-10-2025 Note. MICRO - Microbiology PROCEDURE: Blood Culture (bacterial) [O1 *1] SOURCE: Blood BODY SITE: COLLECTED DATE/TIME: 06/16/2024 08:40 EDT RECEIVED DATE/TIME: 06/16/2024 09:03 EDT START DATE/TIME: 06/16/2024 09:03 EDT FREE TEXT SOURCE: FINAL REPORTS Final Report [] Verified Date/Time/Personnel: 06/21/2024 09:59 EDT Blood Culture: No Growth at 5 days. PRELIMINARY REPORTS Preliminary Report [] Verified Date/Time/Personnel: 06/16/2024 09:59 EDT Culture has been received in lab and is no growth to date. Routine cultures are held for 5 days. Order Comments O1: Blood Culture (bacterial) pediatric bottle Performing Locations *1: This test was performed at: [address], [facility] , [facility] [id number] Note. MICRO - Microbiology PROCEDURE: Blood Culture (bacterial) [O1 *1] SOURCE: Blood BODY SITE: COLLECTED DATE/TIME: 06/16/2024 08:40 EDT RECEIVED DATE/TIME: 06/16/2024 09:03 EDT START DATE/TIME: 06/16/2024 09:03 EDT FREE TEXT SOURCE: FINAL REPORTS Final Report [] Verified Date/Time/Personnel: 06/21/2024 09:59 EDT Blood Culture: No Growth at 5 days. PRELIMINARY REPORTS Preliminary Report [] Verified Date/Time/Personnel: 06/16/2024 09:59 EDT Culture has been received in lab and is no growth to date. Routine cultures are held for 5 days. Order Comments O1: Blood Culture (bacterial) pediatric bottle Performing Locations *1: This test was performed at: [address], [facility] , [facility] [id number] Maternal and medicine Progress note MATERNAL MEDICINE REVIEW Consult Referral from: ODS. Maternal- Transport from: [facility] Dr. Maryjo Spangler. Admitted on: 06/16/2024. Date of MFM Consult- Dr. El: 06/17/2024 MFM ROUNDS on -06/19/2024 1100 hrs. Today she is 19+0 weeks. ADMISSION ASSESSMENTS She is 19 years old, G 1 P 0, at 18+4 weeks on day of admission. TUSHAR: 11/14/2024 Review of Dates: Established for menstrual history and 18-week imaging study affirmed. Obstetric Review [] Concern for acute appendicitis- (reason for admission) + additional diagnosis of appendicitis: See indication for appendectomy Obstetric Ultrasound @[place] on June 16, 2024 that revealed normal ovaries and abnormal appearance of the appendix suggestive of acute appendicitis. She also had OB ultrasound with complete age of 18+3 weeks gestation with normal anatomy and normal [facility] ? Indication for appendectomy: She received as a maternal- transport from [facility] Dr.Emilio Spangler on 06/16/2024 with history of having been seen in the ER in the days previously with diagnosis of cystitis and subsequently admitted for ongoing lower abdominal discomfort and pain and ongoing treatment for cystitis with Rocephin. Renal ultrasound was normal. E. coli was grown in the urine 80,000 that is sensitive to Rocephin. In spite of appropriate treatment the WBC was trending up to19K with neutrophilia but no bandemia and although afebrile pulse was trending upwards 110 bpm. OB consultation was obtained with Dr. Maryjo Spangler and she rightly suspected acute appendicitis and as referred [place] modality of imaging is MRI and it was not available [facility] transport was excepted. I personally talked to the hospitalist for her to be admitted to the hospitalist service and she was in the MedSurg floor at [facility]. I recommended imaging and evaluation and close monitoring in the stepdown and OB consultation. Subsequently ultrasound confirmed the clinical impression of acute appendicitis and she had surgery the following day in the morning. APPENDECTOMY ? Date: 06/16/2024 ? Comments: Surgery was performed by Dr. Rodriguez and postoperative diagnosis was acute perforated appendicitis with purulent peritonitis Laboratory Results Complete Blood Count WBC: 9.7 10^3/mcL (06/18/24 05:46:00) RBC: 3.71 10^6/mcL Low (06/18/24 05:46:00) Hgb: 11.3 G/dL Low (06/18/24 05:46:00) Hct: 32.8 % Low (06/18/24 05:46:00) MCV: 88.3 fL (06/18/24 05:46:00) MCH: 30.4 pg (06/18/24 05:46:00) MCHC: 34.5 G/dL (06/18/24 05:46:00) RDW: 13.2 % (06/18/24 05:46:00) Platelet: 210 10^3/mcL (06/18/24 05:46:00) MPV: 7 fL (06/18/24 05:46:00) Maternal Vitals Vitals Signs(Last 24 hrs)__Last Charted Minimum Maximum Temp37.0(JUNE 19 11:24)36.8(JUNE 19 00:33)37.0(JUNE 18 16:50) Heart Rate99(JUNE 19 11:24)88(JUNE 18 18:59)H 106(JUNE 19 04:56) SBPH 146(JUNE 19 11:24)124(JUNE 18 18:59)H 146(JUNE 19 11:24) DBP87(JUNE 19 11:24)63(JUNE 18 16:50)87(JUNE 19 11:24) REVIEW and RECOMMENDATIONS ? Postoperative Day: 3. The surgeons are discharging her today on Augmentin for a week and with oxycodone for pain relief. ? S/p appendectomy for perforated appendix: She is ambulating and able to eat and the pain is very well-controlled ? Obstetrically: heart rate visualized with bedside ultrasound. No concerns for contractions. Discharge Planning: She knows to use Tylenol as a first-line of treatment for mild pain and utilizeoxycodone only if necessary. She was asked to make an appointment to see her salesperson sheet music next week. She knows to complete the course of antibiotics. Patient Care Coordination Discussions: To synchronize multi-disciplinary care, I have personally reviewed patient's progress with the L&D care team. Billing Status: Subsequent Inpatient- MEGHAN (Medical Complexity in Decision) based - MEDIUM COMPLEXITY Valerie Brambila MD., FACOG Digitally Signed by LENI BRAMBILA MD on 06/19/2024 03:04 PM [facility] [id number] Hospital Discharge instructions Patient Education 06/19/2024 11:27:17 and Urinary Tract Infection and Urinary Tract Infection A urinary tract infection (UTI) is an infection of any part of the urinary tract. This includes thekidneys, the tubes that connect your kidneys to your bladder (ureters), the bladder, and the tube that carries urine out of your body (urethra). These organs make, store, and get rid of urine in the body. Your health care provider may use other names to describe the infection. An upper UTI affects the ureters and kidneys (pyelonephritis). A lower UTI affects the bladder (cystitis) and urethra (urethritis). Most urinary tract infections are caused by bacteria in your genital area, around the entrance to your urinary tract (urethra). These bacteria grow and cause irritation and inflammation of your urinary tract. You are more likely to develop a UTI during because the physical and hormonal changes your body goes through can make it easier for bacteria to get into your urinary tract. Your growing baby also puts pressure on your bladder and can affect urine flow. It is important to recognize and treat UTIs in because of the risk of serious complications for both you and your baby. How does this affect me? Symptoms of a UTI include: Needing to urinate right away (urgently). Frequent urination or passing small amounts of urine frequently. Pain or burning with urination. Blood in the urine. Urine that smells bad or unusual. Trouble urinating. Cloudy urine. Pain in the abdomen or lower back. Vaginal discharge. You may also have: Vomiting or a decreased appetite. Confusion. Irritability or tiredness. A fever. Diarrhea. How does this affect my baby? An untreated UTI during could lead to a kidney infection or a systemic infection, which can cause health problems that could affect your baby. Possible complications of an untreated UTI include: Giving to your baby before 37 weeks of (premature). Having a baby with a low weight. Developing high blood pressure during (preeclampsia). Having a low hemoglobin level (anemia). What can I do to lower my risk? To prevent a UTI: Go to the bathroom as soon as you feel the need. Do not hold urine for long periods of time. Always wipe from front to back, especially after a bowel movement. Use each tissue one time when you wipe. Empty your bladder after sex. Keep your genital area dry. Drink 6 10 glasses of water each day. Do not douche or use deodorant sprays. How is this treated? Treatment for this condition may include: Antibiotic medicines that are safe to take during . Other medicines to treat less common causes of UTI. Follow these instructions at home: If you were prescribed an antibiotic medicine, take it as told by your health care provider. Do notstop using the antibiotic even if you start to feel better. Keep all follow-up visits as told by your health care provider. This is important. Contact a health care provider if: Your symptoms do not improve or they get worse. You have abnormal vaginal discharge. Get help right away if you: Have a fever. Have nausea and vomiting. Have back or side pain. Feel contractions in your uterus. Have lower belly pain. Have a gush of fluid from your vagina. Have blood in your urine. Summary A urinary tract infection (UTI) is an infection of any part of the urinary tract, which includes the kidneys, ureters, bladder, and urethra. Most urinary tract infections are caused by bacteria in your genital area, around the entrance to your urinary tract (urethra). You are more likely to develop a UTI during . If you were prescribed an antibiotic medicine, take it as told by your health care provider. Do notstop using the antibiotic even if you start to feel better. This information is not intended to replace advice given to you by your health care provider. Make sure you discuss any questions you have with your health care provider. Document Released: 05/26/2011 Document Revised: 05/23/2019 Document Reviewed: 01/02/2019 [employer] Patient Education 2020 [employer]. 06/19/2024 11:25:58 Appendicitis, Adult Appendicitis, Adult Appendicitis is inflammation of the appendix. The appendix is a finger-shaped tube that is attachedto the large intestine. If appendicitis is not treated, it can cause the appendix to tear (rupture). A ruptured appendix can lead to a life-threatening infection. It can also cause a painful collection of pus (abscess) to form in the appendix. What are the causes? This condition may be caused by a blockage in the appendix that leads to infection. The blockage can be caused by: A ball of stool (feces). Enlarged lymph glands. In some cases, the cause may not be known. What increases the risk? Age is a risk factor. You are more likely to develop this condition if you are between 10 and 30 years of age. What are the signs or symptoms? Symptoms of this condition include: Pain that starts around the belly button and moves toward the lower right part of the abdomen. The pain can become more severe as time passes. It gets worse with coughing or sudden movements. Tenderness in the lower right abdomen. Nausea. Vomiting. Loss of appetite. Fever. Difficulty passing stool (constipation). Passing very loose stools (diarrhea). Generally feeling unwell. How is this diagnosed? This condition may be diagnosed with: A physical exam. Blood tests. Urine test. To confirm the diagnosis, an ultrasound, MRI, or CT scan may be done. How is this treated? This condition is usually treated with surgery to remove the appendix (appendectomy). There are twomethods for doing an appendectomy: Open appendectomy. In this surgery, the appendix is removed through a large incision that is made in the lower right abdomen. This procedure may be recommended if: ?You have major scarring from a previous surgery. ?You have a bleeding disorder. ?You are and are about to give . ?You have a condition that makes it hard to do surgery through small incisions (laparoscopic procedure). This includes severe infection or a ruptured appendix. Laparoscopic appendectomy. In this surgery, the appendix is removed through small incisions. This procedure usually causes less pain and fewer problems than an open appendectomy. It also has a shorter recovery time. If the appendix has ruptured and an abscess has formed: A drain may be placed into the abscess to remove fluid. Antibiotic medicines may be given through an IV. The appendix may or may not need to be removed. Follow these instructions at home: If you had surgery, follow instructions from your health care provider about how to care for yourself at home and how to care for your incision. Medicines Take ygvy-hsj-wroftga and prescription medicines only as told by your health care provider. If you were prescribed an antibiotic medicine, take it as told by your health care provider. Do notstop taking the antibiotic even if you start to feel better. Eating and drinking Follow instructions from your health care provider about eating restrictions. You may slowly resumea regular diet once your nausea or vomiting stops. General instructions Do not use any products that contain nicotine or tobacco, such as cigarettes, e- cigarettes, and chewing tobacco. If you need help quitting, ask your health care provider. Do not drive or use heavy machinery while taking prescription pain medicine. Ask your health care provider if the medicine prescribed to you can cause constipation. You may need to take steps to prevent or treat constipation, such as: ?Drink enough fluid to keep your urine pale yellow. ?Take mtin-hlp-ctvpelt or prescription medicines. ?Eat foods that are high in fiber, such as beans, whole grains, and fresh fruits and vegetables. ?Limit foods that are high in fat and processed sugars, such as fried or sweet foods. Keep all follow-up visits as told by your health care provider. This is important. Contact a health care provider if: There is pus, blood, or excessive drainage coming from your incision. You have nausea or vomiting. Get help right away if you have: Worsening abdominal pain. A fever. Chills. Fatigue. Muscle aches. Shortness of breath. Summary Appendicitis is inflammation of the appendix. This condition may be caused by a blockage in the appendix that leads to infection. This condition is usually treated with surgery to remove the appendix. This information is not intended to replace advice given to you by your health care provider. Make sure you discuss any questions you have with your health care provider. Document Released: 01/29/2006 Document Revised: 07/17/2018 Document Reviewed: 07/17/2018 [employer] Patient Education 2020 [employer]. Follow Up Care 06/15/2024 18:44:35 With:MICHAEL LÓPEZ MD, Surgery Address: [address] [place] [address]- [phone] When:07/04/2024 08:45:00 With:[facility] Address: [address] [place], [place] [address]- [phone] When:1-2 days Comments:ACCEPTING NEW PATIENTS With:[facility] Address: [address] [place] [address]- [phone] When:1-2 days Comments:ACCEPTING NEW PATIENTS [facility] 05-08-2025 Note Discharge Instructions Thank you for allowing [place] to assist you with your healthcare needs. The following is importantdischarge information regarding your hospital visit. Your Care Team PHYSICIAN, NOT RECORDED Your Diagnosis Acute perforated Appendicitis with purulent peritonitis Hypokalemia Leukocytosis Postoperative pain Tachycardia What to do next Instructions From Your Doctor No lifting or pushing objects greater than 10-15 pounds and no strenuous activity. Walking, using the stairs, and riding in a car are acceptable forms of activity and are encouraged in the postoperative period. Incentive spirometry use and deep breathing/coughing exercises are also encouraged afterdischarge to prevent respiratory complications such as pneumonia and blood clots. No driving while taking narcotic pain medication. You may shower. No tub bathing or soaking your incisions, and no pool/hot tub use until cleared by your surgeon. Wash your incisions daily with a mild soap and water and pat dry. It is recommended that you take between 650-1000 mg of Tylenol every 6 hours as needed to optimize pain control after surgery. A temporary prescription for a narcotic pain medication has been provided to you postoperatively and should only be used for breakthrough pain as narcotics increase the risk for constipation, dependency, and respiratory depression. Please do not take more than 4000 mg of Tylenol (acetaminophen) within 24 hours. Please only take narcotics for significant pain. Please avoid if able. Constipation after surgery is a very common concern for patients after discharge from the hospital.Patients are encouraged to take over the counter stool softeners (such as Colace) and over the counter laxatives (Miralax) as needed for constipation. Additional medications that can be taken for postoperative constipation include milk of magnesia, Metamucil, and Senokot. Please follow-up with your primary care provider general surgery and profile grinder technician/ob as outpatient If symptoms return or worsen. Please seek immediate medical attention Thank you for allowing me to participate in your care, Zuly Duggan MAINTENANCE TEAM MEMBER-LITHOGRAPH PRINTER 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 Post Op 07/04/2024 08:45 AM MICHAEL IRVIN MD [place] [facility] Confirmed Follow Up Appointments Follow Up with [facility] When:Within 1-2 days Where:[address] [place], [place] [address]- [phone] Additional Information: ACCEPTING NEW PATIENTS Follow Up with [facility] When:Within 1-2 days [address] [place] [address]- [phone] Additional Information: ACCEPTING NEW PATIENTS Follow Up with MICHAEL LÓPEZ MD, Surgery When:07/04/2024 08:45 AM EDT Where:[address] [place] [address]- [phone] The Following Activity and Diet Have Been Ordered for You Discharge Activity - Ordered -- May Shower, No lifting anything greater than 10-15 pounds and no strenuous activity. No driving while taking narcotic pain medication and for minimum of 5 days postoperatively., 06/19/24 8:06:00 EDT Discharge Diet - Ordered -- Type of Diet: Regular Diet, No changes were made to your diet during your hospital stay. Please resume your pre hospitalization diet on discharge., 06/19/24 11:25:00 EDT The Following Equipment Has Been Ordered for You Discharge Home Equipment Discharge Wound Care - Ordered -- May leave incision sites open to air. Shower only; wash incision sites with soap and water and pat dry. No tub bathing or indoor pool/hot tub use until seen in follow-up., 06/19/24 8:06:00 EDT The Following Treatments Have Been Ordered for You Discharge Labs Discharge Outpatient Labwork - Ordered -- CBC/BMP, Follow up/ hypokalemia/leukocytosis, Results Notify to: Primary care provider, Prior [facility] appointment, 06/19/24 11:25:00 EDT Discharge Radiology No qualifying data available. Other Therapies No qualifying data available. Post Acute Orders No qualifying data available. Someone Will Contact You Regarding These Home Health Referrals No home referrals have been ordered for you. No one will call you. Allergies Vicks Vapo Rub topical ointment Medications Please ask your primary doctor or pharmacist before taking any other medication not listed, including over the counter drugs, herbal medications, vitamins and or supplements as they may interact withyour home medications. What How Much When Why Instructions Last Dose New acetaminophen (Tylenol Extra Strength 500 mg oraltablet) 2 tab(s) by mouth Every 6 hours as needed for Pain, scale 4-10 Duration: 7 Days Pickup at [facility] 181 New amoxicillin-clavulanate (amoxicillin-clavulanate 875 mg-125 mg oral tablet) 1 tab(s) by mouth Twice daily with meals Pickup at [facility] 1811 New famotidine (Pepcid 20 mg oral tablet) 1 tab(s) by mouth Once a day Pickup at [facility] 181 New oxyCODONE (oxyCODONE 5 mg oral tablet ( IMMEDIATE release )) 1 tab(s) by mouth Every 6 hours as needed for as needed for pain Postoperative pain Duration: 3 Days Pickup at [facility] 1811 New polyethylene glycol 3350 (MiraLax oral powder for reconstitution) 17 gram(s) by mouth Once a day as needed for Constipation Duration: 10 Days Pickup at [facility] 181 Pharmacy Information [facility] 1811: [address] [place], [place] [phone] What How Much When Comments Stop Taking cephalexin (cephalexin 500 mg oral capsule) 1 cap by mouth Every 12 hours Duration: 7 Days Stop Taking metoclopramide (Reglan 10 mg oral tablet) 1 tab(s) by mouth Three (3) times a day Duration: 7 Days Stop Taking multivitamin, ( Multivitamins) 1 tab(s) by mouth Once a day Please take this list to your next doctor s visit. Bring all medications you take, including over the counter medications, herbals and other supplements with you to your doctor s visit. Patients and families are reminded to discard old lists and to update any records with all medication providers or retail pharmacies. Education Materials and Urinary Tract Infection A urinary tract infection (UTI) is an infection of any part of the urinary tract. This includes thekidneys, the tubes that connect your kidneys to your bladder (ureters), the bladder, and the tube that carries urine out of your body (urethra). These organs make, store, and get rid of urine in the body. Your health care provider may use other names to describe the infection. An upper UTI affects the ureters and kidneys (pyelonephritis). A lower UTI affects the bladder (cystitis) and urethra (urethritis). Most urinary tract infections are caused by bacteria in your genital area, around the entrance to your urinary tract (urethra). These bacteria grow and cause irritation and inflammation of your urinary tract. You are more likely to develop a UTI during because the physical and hormonal changes your body goes through can make it easier for bacteria to get into your urinary tract. Your growing baby also puts pressure on your bladder and can affect urine flow. It is important to recognize and treat UTIs in because of the risk of serious complications for both you and your baby. How does this affect me? Symptoms of a UTI include: Needing to urinate right away (urgently). Frequent urination or passing small amounts of urine frequently. Pain or burning with urination. Blood in the urine. Urine that smells bad or unusual. Trouble urinating. Cloudy urine. Pain in the abdomen or lower back. Vaginal discharge. You may also have: Vomiting or a decreased appetite. Confusion. Irritability or tiredness. A fever. Diarrhea. How does this affect my baby? An untreated UTI during could lead to a kidney infection or a systemic infection, which can cause health problems that could affect your baby. Possible complications of an untreated UTI include: Giving to your baby before 37 weeks of (premature). Having a baby with a low weight. Developing high blood pressure during (preeclampsia). Having a low hemoglobin level (anemia). What can I do to lower my risk? To prevent a UTI: Go to the bathroom as soon as you feel the need. Do not hold urine for long periods of time. Always wipe from front to back, especially after a bowel movement. Use each tissue one time when you wipe. Empty your bladder after sex. Keep your genital area dry. Drink 6 10 glasses of water each day. Do not douche or use deodorant sprays. How is this treated? Treatment for this condition may include: Antibiotic medicines that are safe to take during . Other medicines to treat less common causes of UTI. Follow these instructions at home: If you were prescribed an antibiotic medicine, take it as told by your health care provider. Do notstop using the antibiotic even if you start to feel better. Keep all follow-up visits as told by your health care provider. This is important. Contact a health care provider if: Your symptoms do not improve or they get worse. You have abnormal vaginal discharge. Get help right away if you: Have a fever. Have nausea and vomiting. Have back or side pain. Feel contractions in your uterus. Have lower belly pain. Have a gush of fluid from your vagina. Have blood in your urine. Summary A urinary tract infection (UTI) is an infection of any part of the urinary tract, which includes the kidneys, ureters, bladder, and urethra. Most urinary tract infections are caused by bacteria in your genital area, around the entrance to your urinary tract (urethra). You are more likely to develop a UTI during . If you were prescribed an antibiotic medicine, take it as told by your health care provider. Do notstop using the antibiotic even if you start to feel better. This information is not intended to replace advice given to you by your health care provider. Make sure you discuss any questions you have with your health care provider. Document Released: 05/26/2011 Document Revised: 05/23/2019 Document Reviewed: 01/02/2019 [employer] Patient Education 2020 [employer]. Appendicitis, Adult Appendicitis is inflammation of the appendix. The appendix is a finger-shaped tube that is attachedto the large intestine. If appendicitis is not treated, it can cause the appendix to tear (rupture). A ruptured appendix can lead to a life-threatening infection. It can also cause a painful collection of pus (abscess) to form in the appendix. What are the causes? This condition may be caused by a blockage in the appendix that leads to infection. The blockage can be caused by: A ball of stool (feces). Enlarged lymph glands. In some cases, the cause may not be known. What increases the risk? Age is a risk factor. You are more likely to develop this condition if you are between 10 and 30 years of age. What are the signs or symptoms? Symptoms of this condition include: Pain that starts around the belly button and moves toward the lower right part of the abdomen. The pain can become more severe as time passes. It gets worse with coughing or sudden movements. Tenderness in the lower right abdomen. Nausea. Vomiting. Loss of appetite. Fever. Difficulty passing stool (constipation). Passing very loose stools (diarrhea). Generally feeling unwell. How is this diagnosed? This condition may be diagnosed with: A physical exam. Blood tests. Urine test. To confirm the diagnosis, an ultrasound, MRI, or CT scan may be done. How is this treated? This condition is usually treated with surgery to remove the appendix (appendectomy). There are twomethods for doing an appendectomy: Open appendectomy. In this surgery, the appendix is removed through a large incision that is made in the lower right abdomen. This procedure may be recommended if: ? You have major scarring from a previous surgery. ? You have a bleeding disorder. ? You are and are about to give . ? You have a condition that makes it hard to do surgery through small incisions (laparoscopic procedure). This includes severe infection or a ruptured appendix. Laparoscopic appendectomy. In this surgery, the appendix is removed through small incisions. This procedure usually causes less pain and fewer problems than an open appendectomy. It also has a shorter recovery time. If the appendix has ruptured and an abscess has formed: A drain may be placed into the abscess to remove fluid. Antibiotic medicines may be given through an IV. The appendix may or may not need to be removed. Follow these instructions at home: If you had surgery, follow instructions from your health care provider about how to care for yourself at home and how to care for your incision. Medicines Take bsde-koq-xnlcnsj and prescription medicines only as told by your health care provider. If you were prescribed an antibiotic medicine, take it as told by your health care provider. Do notstop taking the antibiotic even if you start to feel better. Eating and drinking Follow instructions from your health care provider about eating restrictions. You may slowly resumea regular diet once your nausea or vomiting stops. General instructions Do not use any products that contain nicotine or tobacco, such as cigarettes, e- cigarettes, and chewing tobacco. If you need help quitting, ask your health care provider. Do not drive or use heavy machinery while taking prescription pain medicine. Ask your health care provider if the medicine prescribed to you can cause constipation. You may need to take steps to prevent or treat constipation, such as: ? Drink enough fluid to keep your urine pale yellow. ? Take jxus-vqy-vkbkpts or prescription medicines. ? Eat foods that are high in fiber, such as beans, whole grains, and fresh fruits and vegetables. ? Limit foods that are high in fat and processed sugars, such as fried or sweet foods. Keep all follow-up visits as told by your health care provider. This is important. Contact a health care provider if: There is pus, blood, or excessive drainage coming from your incision. You have nausea or vomiting. Get help right away if you have: Worsening abdominal pain. A fever. Chills. Fatigue. Muscle aches. Shortness of breath. Summary Appendicitis is inflammation of the appendix. This condition may be caused by a blockage in the appendix that leads to infection. This condition is usually treated with surgery to remove the appendix. This information is not intended to replace advice given to you by your health care provider. Make sure you discuss any questions you have with your health care provider. Document Released: 01/29/2006 Document Revised: 07/17/2018 Document Reviewed: 07/17/2018 [employer] Patient Education 2020 [employer] Additional Information VACCINATE! IT SAVES LIVES! Members of the community who have not yet received the COVID-19 vaccine and would like to receive it can visit one of [facility] vaccine clinics. There are many vaccine clinic locations within the [facility]. For locations and available times, please visit [email or web address] It is important to note that some COVID mobile vaccine clinics are held outdoors and may be canceled in rainy or stormy conditions. To learn more about pediatric vaccinations (ages 5-11), we invite you to visit the [facility] webpage. [email or web address] learn more about the COVID-19 vaccine, we invite you to visit the CDC website for a list of frequently asked questions.https://www.cdc.gov/coronavirus/2019-ncov/vaccines/faq.html [facility] Patient Portal Access Instructions: Stay connected with your healthcare team and access your personal medical information anytime with the [facility] Patient Portal. Please follow the directions below to create your [facility] account: 1.Access the email account you provided upon registration to the hospital/physician office.2.Look for an invitation email from [facility].3.Open the email and access the invitation link: AcceptInvitation to [facility].4.Fill in the required wheeler to create your account. To access your account, visit [employer]. Click the blue button labeled Access Patient Portal and then log in with the username and password that you created in the steps above. You will be able to view your test results, lab results, a summary of your visits, upcoming appointments and more. There is also a convenient messaging option where you can send secure messages to your p rovider. In addition, you will have the ability to download any documents or summaries to your computer and/or send the information securely to a physician. Remember that your healthcare information is confidential, so carefully consider who you will allowto register on the [facility] for access to your information. You can also access the [facility] on the [place] [facility] matteo. Simply click on Patient Portal and then log into your account. If you would like to receive a full copy of your medical records, please contact the [facility] Medical Records Department by calling [phone], Sunday through Sunday between 8 a.m. and 4:30 p.m. HOW TO SAFELY DISPOSE OF PRESCRIPTION MEDICATIONS Please use one of the following methods to safely dispose of your unused medications. 1.Use a drug disposal kit: the drug disposal pouch allows you to safely discard your old and unuseddrugs. Ask your nurse to give you one when you are discharged.2.Visit a local take-back location: Many local pharmacies and police departments have programs that collect old and unwanted prescriptiondrugs. Call your local pharmacy or go to http://Yhat.Applimation/9N0Vv2n to find one close to you.3.Make use of household items: Use cat litter or old coffee grounds to dispose medications if other options arenot available. Mix your drugs with these household products, seal them in an airtight container andthrow it into the garbage. Call [facility]: [phone] to be sure your drugs can be disposed of in this way. Some medicines may require a different approach.4.Never flush your medications down the toilet. IF YOU HAVE BEEN PRESCRIBED AN OPIOID FOR PAIN If you have been prescribed an opioid (such as hydrocodone, oxycodone or morphine), it is critical to understand the possible side effects and risks of opioid pain medications. Even when taken as directed, opioids can have several side effects including: Tolerance, meaning you might need to take more of a medication for the same pain relief. Nausea, vomiting and/or constipation. Sleepiness, dizziness, dry mouth, confusion, depression or itching. Physical dependence, meaning you have withdrawal symptoms when a medication is stopped, can develop within a few days. KNOW YOUR RESPONSIBILITIES It is important to know exactly how much and how often to take the opioid pain medications you are prescribed. Never take opioids in higher amounts or more often than prescribed. Do not combine opioids with alcohol or other drugs that cause drowsiness, such as benzodiazepines, also known as benzos, including diazepam and alprazolam, muscle relaxants or sleep aids. Never sell or share prescription opioids. This is illegal. Store opioids in a secure place and out of reach of others (including children, family, friends and visitors). The last page of this document has been signed and retained as a CHART COPY. Signatures Patient Education Materials and Urinary Tract Infection Appendicitis, Adult Medication Leaflets My discharge plan and instructions have been reviewed and explained to me and I,KIM NGUYEN understand my current condition and have read and understand these discharge instructions. I have received a written copy of the plan/instructions. If I have questions, I am aware that I should contact my doctor. 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 Acute perforated Appendicitis with purulent peritonitis 2. 3. Leukocytosis 4. Hypokalemia 5. Tachycardia Hospital Course Patient is a 19 year old female with no significant past medical history, patient is currently 18 weeks . Patient presented to [facility] the emergency department on June 15, 2024 with complaints of nausea, vomiting and right lower quadrant abdominal pain beginning 3 days prior. . Of note patient originally presented to [place] emergency department on 06/13/24 with complaints of generalized not feeling well, chills, lightheadedness, frequent urination. Patient was diagnosed withurinary tract infection and discharged with nitrofurantoin urine culture obtained at [facility] showing 50,000-80,000 Presumptive E. coli: Pansensitive. Patient was also evaluated at an urgent care on June 14, 2024. Patient was diagnosed with hyperemesis gravidarum. Patient then returned to [facility] emergency department on June 15, 2024. In the emergency department patient was thought to have a urinary tract infection. Patient was placed on IV ceftriaxone and admitted to [facility] for further evaluation management. Patient was evaluated by [facility] and there were concerns for acute appendicitis. It was recommended patient undergo MRI. MRI was not available at [facility] and patient was transferred to [facility] under hospitalist service with M and general surgery consultation. Abdominal ultrasound revealed acute appendicitis. On June 16, 2024 patient went to the operating room with Dr. Michael López for acute perf orated appendicitis with purulent peritonitis. Laparoscopic was converted to open appendectomy. During the patient's hospitalization patient was evaluated by infectious disease. General surgery and infectious disease recommending patient continue Augmentin for a 7 to 10-day course. Antibiotic scripts have been provided by ID. Blood culture showing no growth to date. Leukocytosis has significantlyimproved. SIMONE drain removed today. Abdominal pain improved with Tylenol. At this time patient is feeling well. She is tolerating oral intake without difficulty. Patient is tolerating oral antibiotics.She is afebrile. Patient is medically optimized for discharge home. Discussed with my collaborating physician Dr. Kenji Pereira This dictation was performed using voice recognition software and may include grammatical and/or spelling errors. Allergies Vicks Vapo Rub topical ointment Consults Consult to Physician - Ordered -- 06/15/24 22:31:00 EDT, OB, OB CLINIC, Routine, 18 weeks with abdominal pain. Monitor and recommendations for ongoing abdominal pain Consult to Physician - Ordered -- 06/16/24 8:25:00 EDT, ANISH GALLEGO DO, Routine, concern for appendicitis Consult to Physician - Ordered -- 06/16/24 11:51:00 EDT, ELIZABETH EL MD, Routine, 18 weeks Acute appendicitis Consult to Physician - Ordered -- 06/18/24 11:48:00 EDT, JAIRON NAVA MD, Routine, Acute perforated Appendicitis with purulent peritonitis/ Physical Exam Vitals and Measurements T: 37.0 C (Oral) TMIN: 36.8 C (Oral) TMAX: 37.3 C (Oral) HR: 99 (Monitored) RR: 20 BP: 146/87 SpO2:95% Weight Dosing Weight: 106.1 kg (06/15/24) Physical Exam General: No acute distress. Alert and Appropriate Skin: No rash. Warm, Dry, Intact HEENT: Head is normocephalic and atraumatic. No lesions. Pupils equal in size. Extraocular movements within normal limits. Nose: No septal deviation. Mouth: Oropharynx mucosa is without lesion. Neck: Supple. No lymphadenopathy or thyromegaly noted. Lungs: Bilaterally diminished breath sounds with no crepitation or wheeze. Unlabored Cardiovascular: Heart is regular rhythm, S1S2, No extra-audible heart tones Abdomen: Abdomen is soft, nontender. Bowel sounds positive all four quadrants. Lower midline abdominal incision well-approximated. No signs of infection. Ros intact. Extremities: No clubbing, cyanosis or edema. No calf tenderness. Adequate peripheral circulation. Neurological: The patient is awake, oriented to time, people and place. Following simple commands, moving all extremities. Code Status Code Status - Ordered -- 06/15/24 22:23:00 EDT, Full Code, Constant Order Admission Date 06/13/24 Discharge Date 06/19/24 Patient Instructions No lifting or pushing objects greater than 10-15 pounds and no strenuous activity. Walking, using the stairs, and riding in a car are acceptable forms of activity and are encouraged in the postoperative period. Incentive spirometry use and deep breathing/coughing exercises are also encouraged afterdischarge to prevent respiratory complications such as pneumonia and blood clots. No driving while taking narcotic pain medication. You may shower. No tub bathing or soaking your incisions, and no pool/hot tub use until cleared by your surgeon. Wash your incisions daily with a mild soap and water and pat dry. It is recommended that you take between 650-1000 mg of Tylenol every 6 hours as needed to optimize pain control after surgery. A temporary prescription for a narcotic pain medication has been provided to you postoperatively and should only be used for breakthrough pain as narcotics increase the risk for constipation, dependency, and respiratory depression. Please do not take more than 4000 mg of Tylenol (acetaminophen) within 24 hours. Please only take narcotics for significant pain. Please avoid if able. Constipation after surgery is a very common concern for patients after discharge from the hospital.Patients are encouraged to take over the counter stool softeners (such as Colace) and over the counter laxatives (Miralax) as needed for constipation. Additional medications that can be taken for postoperative constipation include milk of magnesia, Metamucil, and Senokot. Please follow-up with your primary care provider general surgery and profile grinder technician/ob as outpatient If symptoms return or worsen. Please seek immediate medical attention Thank you for allowing me to participate in your care, Zuly Duggan MAINTENANCE TEAM MEMBER-[facility] [phone] Medications New Prescription acetaminophen (Tylenol Extra Strength 500 mg oral tablet)2 tab(s) by mouth every 6 hours as needed Pain, scale 4-10 for 7 Days. Refills: 0. amoxicillin-clavulanate (amoxicillin-clavulanate 875 mg-125 mg oral tablet)1 tab(s) by mouth twice daily with meals. Refills: 0. famotidine (Pepcid 20 mg oral tablet)1 tab(s) by mouth once a day. Refills: 0. oxyCODONE (oxyCODONE 5 mg oral tablet ( IMMEDIATE release ))1 tab(s) by mouth every 6 hours as needed as needed for pain for 3 Days. Refills: 0. polyethylene glycol 3350 (MiraLax oral powder for reconstitution)17 gram(s) by mouth once a day as needed Constipation for 10 Days. Refills: 0. Discontinued cephalexin (cephalexin 500 mg oral capsule)1 cap by mouth every 12 hours for 7 Days. Refills: 0. metoclopramide (Reglan 10 mg oral tablet)1 tab(s) by mouth three (3) times a day for 7 Days. Refills: 0. multivitamin, ( Multivitamins)1 tab(s) by mouth once a day. Follow Up Follow Up with [facility] When:Within 1-2 days Where:[address] [place], [place] [address]- [phone] Additional Information: ACCEPTING NEW PATIENTS Follow Up with KUN CLARK When:Within 1-2 days Where:[address] [place] [address]- [phone] Additional Information: ACCEPTING NEW PATIENTS Follow Up with MICHAEL LÓPEZ MD, Surgery When:07/04/2024 08:45 AM EDT Where:[address] [place] [address]- [phone] Follow Up Labs/Studies Discharge Labs Discharge Outpatient Labwork - Ordered -- CBC/BMP, Follow up/ hypokalemia/leukocytosis, Results Notify to: Primary care provider, Prior tooffice appointment, 06/19/24 11:25:00 EDT Discharge Studies No Follow-up Studies Discharge Diet Discharge Diet - Ordered -- Type of Diet: Regular Diet, No changes were made to your diet during your hospital stay. Please resume your pre hospitalization diet on discharge., 06/19/24 11:25:00 EDT Discharge Activity Discharge Activity - Ordered -- May Shower, No lifting anything greater than 10-15 pounds and no strenuous activity. No driving while taking narcotic pain medication and for minimum of 5 days postoperatively., 06/19/24 8:06:00 EDT Condition on Discharge Stable Discharge Disposition Home Information Provided To Patient Family at bedside Time Spent 35 minutes Digitally Signed by ZULY DUGGAN on 06/19/2024 02:23 PM [facility] [id number] Gynecology Progress note Date of Service 06/19/24 Subjective No acute overnight events. Patient denies any nausea/vomiting/shortness of breath/chest pain/fever/chills. Denies any vaginal bleeding, cramping. Endorses tolerating p.o. Spontaneously voiding. Ambulating. Reports pain is significantly improved. Objective Vitals and Measurements T: 37.3 C (Oral) TMIN: 36.8 C (Oral) TMAX: 37.3 C (Oral) HR: 106 (Monitored) RR: 18 BP: 138/66 SpO2: 98% Intake and Output 7AM Yesterday to 7AM Today Intake and Output (Last 24 hours) Intake Oral Intake 600.00 Supplement Intake 0.00 Output Surgical Drain, Tube Output: 220.00 Urine Voided 0.00 Stool Count 2.00 Urine Count 4.00 Total Summary Total Intake 600.00 Total Output 220.00 Fluid Balance 380.00 Physical Exam GENERAL: NAD NEUROLOGICAL: A&Ox3 HEENT: EOMI, mucus membranes moist CARDIOVASCULAR: regular rate RESPIRATORY: equal rise and fall bilaterally ABDOMEN: soft, gravid, tender. Laparoscopic port sites dressed in gauze. SIMONE drain located RLQ with serosanguineous fluid (recently drained). Low midline vertical incision clean/dry/intact closed withstaples. EXREMETIES: No peripheral edema. SCDs in place Weight Dosing Weight: 106.1 kg (06/15/24) Medications Medications (15) Active Scheduled: (5) amoxicillin-clavulanate 875 mg - 125 mg tablet 875 mg 1 tab(s), Oral, BIDM famotidine 20 mg tablet 20 mg 1 tab(s), Oral, qDay heparin 5,000 units/mL (1 mL) vial 5,000 unit(s) 1 mL, Subcutaneous, q8h multivitamin, Multivitamins with Folic Acid 1 mg Tab 1 tab(s), Oral, qDay Patient 1 EA, Miscellaneous, qDay Continuous: (0) PRN: (10) acetaminophen 325 mg Tablet 650 mg 2 tab(s), Oral, q4h acetaminophen 325 mg Tablet 650 mg 2 tab(s), Oral, q4h acetaminophen PMX 1,000 mg 100 mL, IV Piggyback, q6hr dextrose 50% Solution Disp syringe 50 mL 25 gram(s) 50 mL, IV Push, AsDirected morphine 2 mg/mL 1 mL syringe 2 mg 1 mL, IV Push, q3h morphine 4 mg/mL 1mL INJ 4 mg 1 mL, IV Push, q3h ondansetron 2 mg/ 1 mL 2 mL INJ 4 mg 2 mL, IV Push, q4h ondansetron 2 mg/ 1 mL 2 mL INJ 4 mg 2 mL, IV Push, q4h oxycodone 5 mg tablet (immediate release) 5 mg 1 tab(s), Oral, q4h polyethylene glycol 3350 - UD packet 17 gram(s) 15 mL, Oral, qDay Lab Results 06/18 05:46 WBC: 9.7 Hgb: 11.3 L Hct: 32.8 L Platelet: 210 Neutrophil %: 79.1 H Glucose Level: 92 Sodium Level: 140 Potassium Level: 3.0 L BUN: 5.0 L Creatinine Lvl (s): 0.45 L EKG No qualifying data available. Assessment/Plan Code: Full IVF: N/a UOP: Spontaneously voiding Abx: Augmentin Diet: Regular diet PPx: N/A Lines: Peripheral IV Consults: Gen Surg 19 yo at 19+0wk, with TUSHAR 11/14/24 by LMP c/w 12wkUS currently admitted for appendicitis. is complicated by Asthma, Tobacco use, obesity, h/o E.coli UTI, Lap converted open Appendectomy >> -VSS, AF -s/p POD#3 laparoscopic converted open appendectomy. -SIMONE draining 220 mL serosanguineous fluid -For Doptone's qshift -Blood Cx NGTD -Reports pain significantly improved today. -Zosyn discontinued. Currently on Augmentin 875/125 p.o. BID Dispo: Overall patient improving clinically. Will continue to obtain Doptone's every shift while inpatient. D/w Dr. Smith Digitally Signed by JAZMYNE WRIGHT MD on 06/19/2024 06:18 AM Digitally Signed by JAZMYNE WRIGHT MD on 06/19/2024 06:19 AM Digitally Signed by JAZMYNE WRIGHT MD on 06/19/2024 06:45 AM [facility] [id number] [facility] Progress note Date of Service 06/19/2024 Chief Complaint Postoperative Subjective Patient seen resting supine in bed with family present at the bedside. She denied any new overnightevents/concerns. Objective Vitals and Measurements T: 37.3 C (Oral) TMIN: 36.8 C (Oral) TMAX: 37.3 C (Oral) HR: 101 (Monitored) RR: 18 BP: 130/73 SpO2: 96% Intake and Output 7AM Yesterday to 7AM Today Intake and Output (Last 24 hours) Intake Oral Intake 600.00 Supplement Intake 0.00 Output Surgical Drain, Tube Output: 220.00 Stool Count 2.00 Urine Count 4.00 Total Summary Total Intake 600.00 Total Output 220.00 Fluid Balance 380.00 Physical Exam General: Awake, alert and oriented x4. In no apparent distress. Able to answer questions appropriately and speak in full sentences. Supine in bed. HEENT: Sclera anicteric. Heart: S1 and S2 present. Lungs: Chest rise symmetrical. Respirations unlabored. Abdomen: Soft and tender. Nondistended. No rigidity or guarding noted. Incision sites approximated.SIMONE drain in place with serous drainage Extremities: Freely moving. Psychiatric: Calm and cooperative. Weight Dosing Weight: 106.1 kg (06/15/24) Medications Medications (15) Active Scheduled: (5) amoxicillin-clavulanate 875 mg - 125 mg tablet 875 mg 1 tab(s), Oral, BIDM famotidine 20 mg tablet 20 mg 1 tab(s), Oral, qDay heparin 5,000 units/mL (1 mL) vial 5,000 unit(s) 1 mL, Subcutaneous, q8h multivitamin, Multivitamins with Folic Acid 1 mg Tab 1 tab(s), Oral, qDay Patient 1 EA, Miscellaneous, qDay Continuous: (0) PRN: (10) acetaminophen 325 mg Tablet 650 mg 2 tab(s), Oral, q4h acetaminophen 325 mg Tablet 650 mg 2 tab(s), Oral, q4h acetaminophen PMX 1,000 mg 100 mL, IV Piggyback, q6hr dextrose 50% Solution Disp syringe 50 mL 25 gram(s) 50 mL, IV Push, AsDirected morphine 2 mg/mL 1 mL syringe 2 mg 1 mL, IV Push, q3h morphine 4 mg/mL 1mL INJ 4 mg 1 mL, IV Push, q3h ondansetron 2 mg/ 1 mL 2 mL INJ 4 mg 2 mL, IV Push, q4h ondansetron 2 mg/ 1 mL 2 mL INJ 4 mg 2 mL, IV Push, q4h oxycodone 5 mg tablet (immediate release) 5 mg 1 tab(s), Oral, q4h polyethylene glycol 3350 - UD packet 17 gram(s) 15 mL, Oral, qDay Lab Results 06/18 05:46 WBC: 9.7 Hgb: 11.3 L Hct: 32.8 L Platelet: 210 Neutrophil %: 79.1 H Glucose Level: 92 Sodium Level: 140 Potassium Level: 3.0 L BUN: 5.0 L Creatinine Lvl (s): 0.45 L EKG No qualifying data available. Assessment/Plan Acute perforated Appendicitis with purulent peritonitis Hypokalemia Leukocytosis Tachycardia This patient is a 19-year-old, 19-week , female who is postoperative day #3 following an open appendectomy secondary to perforated appendicitis with purulent peritonitis noted at the time of surgery. On examination, she was seen resting supine in bed with her family present at the bedside. She did not appear toxic or in any acute distress. She denied any new overnight events/concerns. Her incision sites were approximated. SIMONE drain with a total output of 220 mL of serous drainage. Plan: Will have nursing discontinue her SIMONE drain. She is stable for discharge home at the discretion of the primary medical team. Orders for activity, wound care, and follow-up have been placed in [facility]. The case has been discussed with Dr. López. Please see his addendum for further details. Digitally Signed by BERTHA HENRY on 06/19/2024 08:12 AM Digitally Signed by BERTHA HENRY on 06/19/2024 08:12 AM [facility] [id number] [facility] Progress note Date of Service 06/19/2024 Chief Complaint Postoperative Subjective Patient seen resting supine in bed with family present at the bedside. She denied any new overnightevents/concerns. Objective Vitals and Measurements T: 37.3 C (Oral) TMIN: 36.8 C (Oral) TMAX: 37.3 C (Oral) HR: 101 (Monitored) RR: 18 BP: 130/73 SpO2: 96% Intake and Output 7AM Yesterday to 7AM Today Intake and Output (Last 24 hours) Intake Oral Intake 600.00 Supplement Intake 0.00 Output Surgical Drain, Tube Output: 220.00 Stool Count 2.00 Urine Count 4.00 Total Summary Total Intake 600.00 Total Output 220.00 Fluid Balance 380.00 Physical Exam General: Awake, alert and oriented x4. In no apparent distress. Able to answer questions appropriately and speak in full sentences. Supine in bed. HEENT: Sclera anicteric. Heart: S1 and S2 present. Lungs: Chest rise symmetrical. Respirations unlabored. Abdomen: Soft and tender. Nondistended. No rigidity or guarding noted. Incision sites approximated.SIMONE drain in place with serous drainage Extremities: Freely moving. Psychiatric: Calm and cooperative. Weight Dosing Weight: 106.1 kg (06/15/24) Medications Medications (15) Active Scheduled: (5) amoxicillin-clavulanate 875 mg - 125 mg tablet 875 mg 1 tab(s), Oral, BIDM famotidine 20 mg tablet 20 mg 1 tab(s), Oral, qDay heparin 5,000 units/mL (1 mL) vial 5,000 unit(s) 1 mL, Subcutaneous, q8h multivitamin, Multivitamins with Folic Acid 1 mg Tab 1 tab(s), Oral, qDay Patient 1 EA, Miscellaneous, qDay Continuous: (0) PRN: (10) acetaminophen 325 mg Tablet 650 mg 2 tab(s), Oral, q4h acetaminophen 325 mg Tablet 650 mg 2 tab(s), Oral, q4h acetaminophen PMX 1,000 mg 100 mL, IV Piggyback, q6hr dextrose 50% Solution Disp syringe 50 mL 25 gram(s) 50 mL, IV Push, AsDirected morphine 2 mg/mL 1 mL syringe 2 mg 1 mL, IV Push, q3h morphine 4 mg/mL 1mL INJ 4 mg 1 mL, IV Push, q3h ondansetron 2 mg/ 1 mL 2 mL INJ 4 mg 2 mL, IV Push, q4h ondansetron 2 mg/ 1 mL 2 mL INJ 4 mg 2 mL, IV Push, q4h oxycodone 5 mg tablet (immediate release) 5 mg 1 tab(s), Oral, q4h polyethylene glycol 3350 - UD packet 17 gram(s) 15 mL, Oral, qDay Lab Results 06/18 05:46 WBC: 9.7 Hgb: 11.3 L Hct: 32.8 L Platelet: 210 Neutrophil %: 79.1 H Glucose Level: 92 Sodium Level: 140 Potassium Level: 3.0 L BUN: 5.0 L Creatinine Lvl (s): 0.45 L EKG No qualifying data available. Assessment/Plan Acute perforated Appendicitis with purulent peritonitis Hypokalemia Leukocytosis Tachycardia This patient is a 19-year-old, 19-week , female who is postoperative day #3 following an open appendectomy secondary to perforated appendicitis with purulent peritonitis noted at the time of surgery. On examination, she was seen resting supine in bed with her family present at the bedside. She did not appear toxic or in any acute distress. She denied any new overnight events/concerns. Her incision sites were approximated. SIMONE drain with a total output of 220 mL of serous drainage. Plan: Will have nursing discontinue her SIMONE drain. She is stable for discharge home at the discretion of the primary medical team. Orders for activity, wound care, and follow-up have been placed in [facility]. The case has been discussed with Dr. López. Please see his addendum for further details. Digitally Signed by BERTHA HENRY on 06/19/2024 08:12 AM Digitally Signed by BERTHA HENRY on 06/19/2024 08:12 AM [facility] [id number] Gynecology Progress note Date of Service 06/19/24 Subjective No acute overnight events. Patient denies any nausea/vomiting/shortness of breath/chest pain/fever/chills. Denies any vaginal bleeding, cramping. Endorses tolerating p.o. Spontaneously voiding. Ambulating. Reports pain is significantly improved. Objective Vitals and Measurements T: 37.3 C (Oral) TMIN: 36.8 C (Oral) TMAX: 37.3 C (Oral) HR: 106 (Monitored) RR: 18 BP: 138/66 SpO2: 98% Intake and Output 7AM Yesterday to 7AM Today Intake and Output (Last 24 hours) Intake Oral Intake 600.00 Supplement Intake 0.00 Output Surgical Drain, Tube Output: 220.00 Urine Voided 0.00 Stool Count 2.00 Urine Count 4.00 Total Summary Total Intake 600.00 Total Output 220.00 Fluid Balance 380.00 Physical Exam GENERAL: NAD NEUROLOGICAL: A&Ox3 HEENT: EOMI, mucus membranes moist CARDIOVASCULAR: regular rate RESPIRATORY: equal rise and fall bilaterally ABDOMEN: soft, gravid, tender. Laparoscopic port sites dressed in gauze. SIMONE drain located RLQ with serosanguineous fluid (recently drained). Low midline vertical incision clean/dry/intact closed withstaples. EXREMETIES: No peripheral edema. SCDs in place Weight Dosing Weight: 106.1 kg (06/15/24) Medications Medications (15) Active Scheduled: (5) amoxicillin-clavulanate 875 mg - 125 mg tablet 875 mg 1 tab(s), Oral, BIDM famotidine 20 mg tablet 20 mg 1 tab(s), Oral, qDay heparin 5,000 units/mL (1 mL) vial 5,000 unit(s) 1 mL, Subcutaneous, q8h multivitamin, Multivitamins with Folic Acid 1 mg Tab 1 tab(s), Oral, qDay Patient 1 EA, Miscellaneous, qDay Continuous: (0) PRN: (10) acetaminophen 325 mg Tablet 650 mg 2 tab(s), Oral, q4h acetaminophen 325 mg Tablet 650 mg 2 tab(s), Oral, q4h acetaminophen PMX 1,000 mg 100 mL, IV Piggyback, q6hr dextrose 50% Solution Disp syringe 50 mL 25 gram(s) 50 mL, IV Push, AsDirected morphine 2 mg/mL 1 mL syringe 2 mg 1 mL, IV Push, q3h morphine 4 mg/mL 1mL INJ 4 mg 1 mL, IV Push, q3h ondansetron 2 mg/ 1 mL 2 mL INJ 4 mg 2 mL, IV Push, q4h ondansetron 2 mg/ 1 mL 2 mL INJ 4 mg 2 mL, IV Push, q4h oxycodone 5 mg tablet (immediate release) 5 mg 1 tab(s), Oral, q4h polyethylene glycol 3350 - UD packet 17 gram(s) 15 mL, Oral, qDay Lab Results 06/18 05:46 WBC: 9.7 Hgb: 11.3 L Hct: 32.8 L Platelet: 210 Neutrophil %: 79.1 H Glucose Level: 92 Sodium Level: 140 Potassium Level: 3.0 L BUN: 5.0 L Creatinine Lvl (s): 0.45 L EKG No qualifying data available. Assessment/Plan Code: Full IVF: N/a UOP: Spontaneously voiding Abx: Augmentin Diet: Regular diet PPx: N/A Lines: Peripheral IV Consults: Gen Surg 19 yo at 19+0wk, with TUSHAR 11/14/24 by LMP c/w 12wkUS currently admitted for appendicitis. is complicated by Asthma, Tobacco use, obesity, h/o E.coli UTI, Lap converted open Appendectomy >> -VSS, AF -s/p POD#3 laparoscopic converted open appendectomy. -SIMONE draining 220 mL serosanguineous fluid -For Doptone's qshift -Blood Cx NGTD -Reports pain significantly improved today. -Zosyn discontinued. Currently on Augmentin 875/125 p.o. BID Dispo: Overall patient improving clinically. Will continue to obtain Doptone's every shift while inpatient. D/w Dr. Smith Digitally Signed by JAZMYNE WRIGHT MD on 06/19/2024 06:18 AM Digitally Signed by JAZMYNE WRIGHT MD on 06/19/2024 06:19 AM Digitally Signed by JAZMYNE WRIGHT MD on 06/19/2024 06:45 AM [facility] [id number] Gynecology Progress note Date of Service 06/19/24 Subjective No acute overnight events. Patient denies any nausea/vomiting/shortness of breath/chest pain/fever/chills. Denies any vaginal bleeding, cramping. Endorses tolerating p.o. Spontaneously voiding. Ambulating. Reports pain is significantly improved. Objective Vitals and Measurements T: 37.3 C (Oral) TMIN: 36.8 C (Oral) TMAX: 37.3 C (Oral) HR: 106 (Monitored) RR: 18 BP: 138/66 SpO2: 98% Intake and Output 7AM Yesterday to 7AM Today Intake and Output (Last 24 hours) Intake Oral Intake 600.00 Supplement Intake 0.00 Output Surgical Drain, Tube Output: 220.00 Urine Voided 0.00 Stool Count 2.00 Urine Count 4.00 Total Summary Total Intake 600.00 Total Output 220.00 Fluid Balance 380.00 Physical Exam GENERAL: NAD NEUROLOGICAL: A&Ox3 HEENT: EOMI, mucus membranes moist CARDIOVASCULAR: regular rate RESPIRATORY: equal rise and fall bilaterally ABDOMEN: soft, gravid, tender. Laparoscopic port sites dressed in gauze. SIMONE drain located RLQ with serosanguineous fluid (recently drained). Low midline vertical incision clean/dry/intact closed withstaples. EXREMETIES: No peripheral edema. SCDs in place Weight Dosing Weight: 106.1 kg (06/15/24) Medications Medications (15) Active Scheduled: (5) amoxicillin-clavulanate 875 mg - 125 mg tablet 875 mg 1 tab(s), Oral, BIDM famotidine 20 mg tablet 20 mg 1 tab(s), Oral, qDay heparin 5,000 units/mL (1 mL) vial 5,000 unit(s) 1 mL, Subcutaneous, q8h multivitamin, Multivitamins with Folic Acid 1 mg Tab 1 tab(s), Oral, qDay Patient 1 EA, Miscellaneous, qDay Continuous: (0) PRN: (10) acetaminophen 325 mg Tablet 650 mg 2 tab(s), Oral, q4h acetaminophen 325 mg Tablet 650 mg 2 tab(s), Oral, q4h acetaminophen PMX 1,000 mg 100 mL, IV Piggyback, q6hr dextrose 50% Solution Disp syringe 50 mL 25 gram(s) 50 mL, IV Push, AsDirected morphine 2 mg/mL 1 mL syringe 2 mg 1 mL, IV Push, q3h morphine 4 mg/mL 1mL INJ 4 mg 1 mL, IV Push, q3h ondansetron 2 mg/ 1 mL 2 mL INJ 4 mg 2 mL, IV Push, q4h ondansetron 2 mg/ 1 mL 2 mL INJ 4 mg 2 mL, IV Push, q4h oxycodone 5 mg tablet (immediate release) 5 mg 1 tab(s), Oral, q4h polyethylene glycol 3350 - UD packet 17 gram(s) 15 mL, Oral, qDay Lab Results 06/18 05:46 WBC: 9.7 Hgb: 11.3 L Hct: 32.8 L Platelet: 210 Neutrophil %: 79.1 H Glucose Level: 92 Sodium Level: 140 Potassium Level: 3.0 L BUN: 5.0 L Creatinine Lvl (s): 0.45 L EKG No qualifying data available. Assessment/Plan Code: Full IVF: N/a UOP: Spontaneously voiding Abx: Augmentin Diet: Regular diet PPx: N/A Lines: Peripheral IV Consults: Gen Surg 19 yo at 19+0wk, with TUSHAR 11/14/24 by LMP c/w 12wkUS currently admitted for appendicitis. is complicated by Asthma, Tobacco use, obesity, h/o E.coli UTI, Lap converted open Appendectomy >> -VSS, AF -s/p POD#3 laparoscopic converted open appendectomy. -SIMONE draining 220 mL serosanguineous fluid -For Doptone's qshift -Blood Cx NGTD -Reports pain significantly improved today. -Zosyn discontinued. Currently on Augmentin 875/125 p.o. BID Dispo: Overall patient improving clinically. Will continue to obtain Doptone's every shift while inpatient. D/w Dr. Smith Digitally Signed by JAZMYNE WRIGHT MD on 06/19/2024 06:18 AM Digitally Signed by JAZMYNE WRIGHT MD on 06/19/2024 06:19 AM Digitally Signed by JAZMYNE WRIGHT MD on 06/19/2024 06:45 AM [facility] [id number] Maternal and medicine Progress note MATERNAL MEDICINE REVIEW Consult Referral from: ODS. Maternal- Transport from: [facility] Dr. Maryjo Spangler. Admitted on: 06/16/2024. Date of MFM Consult- Dr. El: 06/17/2024 MFM ROUNDS on -06/18/2024 1500 hrs. Today she is 18+6 weeks. ADMISSION ASSESSMENTS She is 19 years old, G 1 P 0, at 18+4 weeks on day of admission. TUSHAR: 11/14/2024 Review of Dates: Established for menstrual history and 18-week imaging study affirmed. Obstetric Review [] Concern for acute appendicitis- (reason for admission) + additional diagnosis of appendicitis: See indication for appendectomy Obstetric Ultrasound @[place] on June 16, 2024 that revealed normal ovaries and abnormal appearance of the appendix suggestive of acute appendicitis. She also had OB ultrasound with complete age of 18+3 weeks gestation with normal anatomy and normal [facility] ? Indication for appendectomy: She received as a maternal- transport from [facility] Dr.Emilio Spangler on 06/16/2024 with history of having been seen in the ER in the days previously with diagnosis of cystitis and subsequently admitted for ongoing lower abdominal discomfort and pain and ongoing treatment for cystitis with Rocephin. Renal ultrasound was normal. E. coli was grown in the urine 80,000 that is sensitive to Rocephin. In spite of appropriate treatment the WBC was trending up to19K with neutrophilia but no bandemia and although afebrile pulse was trending upwards 110 bpm. OB consultation was obtained with Dr. Maryjo Spangler and she rightly suspected acute appendicitis and as referred [place] modality of imaging is MRI and it was not available MFM transport was excepted. I personally talked to the hospitalist for her to be admitted to the hospitalist service and she was in the MedSurg floor at [facility]. I recommended imaging and evaluation and close monitoring in the stepdown and OB consultation. Subsequently ultrasound confirmed the clinical impression of acute appendicitis and she had surgery the following day in the morning. APPENDECTOMY ? Date: 06/16/2024 ? Comments: Surgery was performed by Dr. Rodriguez and postoperative diagnosis was acute perforated appendicitis with purulent peritonitis Laboratory Results Complete Blood Count WBC: 9.7 10^3/mcL (06/18/24 05:46:00) RBC: 3.71 10^6/mcL Low (06/18/24 05:46:00) Hgb: 11.3 G/dL Low (06/18/24 05:46:00) Hct: 32.8 % Low (06/18/24 05:46:00) MCV: 88.3 fL (06/18/24 05:46:00) MCH: 30.4 pg (06/18/24 05:46:00) MCHC: 34.5 G/dL (06/18/24 05:46:00) RDW: 13.2 % (06/18/24 05:46:00) Platelet: 210 10^3/mcL (06/18/24 05:46:00) MPV: 7 fL (06/18/24 05:46:00) Maternal Vitals Vitals Signs(Last 24 hrs)__Last Charted Minimum Maximum Temp36.8(JUNE 18 18:59)36.8(JUNE 18 18:59)37.0(JUNE 18 16:50) Heart Rate88(JUNE 18 18:59)88(JUNE 18 18:59)94(JUNE 18 11:40) FHC374(JUNE 18 18:59)118(JUNE 18 04:10)135(JUNE 17 23:00) DBP74(JUNE 18 18:59)L 59(JUNE 18 04:10)74(JUNE 18 18:59) REVIEW and RECOMMENDATIONS ? Postoperative Day: 2. Sustain inpatient care. ? S/p appendectomy for perforated appendix: She remains on Augmentin twice a day and Zofran as needed for nausea. She has had infectious disease consultation. Her WBC are trending downwards and she is afebrile. Her serum creatinine 0.45. She is not ambulating and eating without difficulty. Pain is much improved. Incision is healing ? Obstetrically: heart rate visualized with bedside ultrasound. No concerns for contractions. ? Discharge planning: Anticipate discharge 06/19/2024 of 06/20/2024 depending on her recuperation. She feels markedly better today Patient Care Coordination Discussions: To synchronize multi-disciplinary care, I have personally reviewed patient's progress with the L&D care team. Billing Status: Subsequent Inpatient- MEGHAN (Medical Complexity in Decision) based - MEDIUM COMPLEXITY Valerie Brambila MD., FACOG Digitally Signed by LENI BRAMBILA MD on 06/18/2024 08:17 PM [facility] [id number] Infectious disease Consult note Date of Service 06/18/2024 Reason for Consultation Acute appendicitis with peritonitis Referring Physician Amanda Duggan APRN History of Present Illness Patient is a 19-year-old female with no past medical history, currently 18 weeks presents to the hospital on 06/15/2024 as a transfer from [facility] with 3-day history of nausea, vomiting and right lower quadrant pain. Initially presented to [place] on 06/13/2024 with generalized weakness, chills, lightheadedness and frequent urination, she was diagnosed with UTI and started on nitrofurantoin. Urine culture grew E. coli. Recently diagnosed with hyperemesis gravidarum. On this admission, patient was evaluated by [facility] with concerns for appendicitis and was transferred due to lack of MRI at [facility]. Upon arrival, patient was found to have low-grade temperature 37.9, tachycardia with labs significant for leukocytosis of 19,300, CRP greater than 200. Abdominal ultrasound showed acute appendicitis with thickened and dilated appendix. Patient underwent open appendectomy on 06/16/2024 with findings of acute perforated appendicitis with purulent peritonitis. Operative findings showed evidence of necrosis perforation and spillage of pus and stool. Blood cultures with no growth to date. Empirically on Augmentin. Patient seen and independently evaluated the bedside. She is resting in bed comfortably in no acutedistress. Complains of back pain and mild abdominal pain. No fever, chills or night sweats. No nausea, vomiting or diarrhea. No shortness of breath or cough. No urinary complaints. Review of Systems Pertinent positives included within the HPI. Physical Exam Vitals and Measurements T: 36.9 C (Oral) TMIN: 36.6 C (Oral) TMAX: 37.3 C (Oral) HR: 94 (Monitored) RR: 16 BP: 121/64 SpO2:96% Weight Dosing Weight: 106.1 kg (06/15/24) General: No acute distress. Alert and Appropriate Skin: Abdominal incision is midline with right SIMONE drain in place. HEENT: Head is normocephalic and atraumatic. No lesions. Pupils equal in size. Extraocular movements within normal limits. Nose: No septal deviation. Mouth: Oropharynx mucosa is without lesion. Neck: Supple. No lymphadenopathy, thyromegaly noted. No carotid bruit heard. Lungs: Respirations are unlabored, bilaterally clear breath sounds with no crepitation or wheeze. Cardiovascular: Heart is regular rhythm, S1S2, no murmur Abdomen: Abdomen is soft, nontender. Bowel sounds positive all four quadrants. No hepatosplenomegaly noted. Extremities: No clubbing, cyanosis or edema. Peripheral pulses palpable. No calf tenderness. Adequate peripheral circulation. Neurological: The patient is awake, oriented to person, place and time. Following simple commands, moving all extremities. Lab Results 06/18 05:46 WBC: 9.7 Hgb: 11.3 L Hct: 32.8 L Platelet: 210 Neutrophil %: 79.1 H Glucose Level: 92 Sodium Level: 140 Potassium Level: 3.0 L BUN: 5.0 L Creatinine Lvl (s): 0.45 L 06/17 06:27 WBC: 16.8 H Hgb: 11.1 L Hct: 33.0 L Platelet: 219 Neutrophil %: 91.1 H Glucose Level: 96 Sodium Level: 137 Potassium Level: 3.5 BUN: 6.0 L Creatinine Lvl (s): 0.44 L Imaging Results and Diagnostics US Pelvis Non-OB Complete Result Date: June 16, 2024 Verified By: ANNAMARIA MAGAÑA MD CLINICAL STATEMENT: IMPRESSION: Normal ovaries with robust blood flow on duplex Doppler. Abnormal appearance of the appendix suggesting acute appendicitis in theappropriate clinical setting. Assessment/Plan Acute perforated appendicitis with purulent peritonitis Leukocytosis recent UTI Recent UTI Patient is a 19-year-old female with no past medical history, currently 18 weeks presents to the hospital on 06/15/2024 as a transfer from [facility] with 3-day history of nausea, vomiting and right lower quadrant pain. Initially presented to [place] on 06/13/2024 with generalized weakness, chills, lightheadedness and frequent urination, she was diagnosed with UTI and started on nitrofurantoin with urine culture growing E. coli. Transferred from [place] given lack of MRI and concern for appendicitis. Patient underwent open appendectomy on 06/16/2024 with findings of acute perforated appendicitis with purulent peritonitis so ID has been asked to evaluate. #1 acute appendicitis with purulent peritonitis in patient. Initial ultrasound reviewed, concerning for acute appendicitis. Patient underwent open appendectomy on 06/16/2024 with findings of acute perforated appendicitis with purulent peritonitis. Operative findings reviewed, concerning for necrosis perforation and spillage of pus in stool. Her abdominal pain has improved. Leukocytosis hasresolved and fevers have improved. Agree with general surgery's recommendations for Augmentin 875/125 p.o. twice daily as it is appropriate treatment, recommend 7 to 10-day course. Augmentin is safe during and not tetragonictowards the fetus. Recommend follow-up with general surgery upon discharge. Plan of care discussed in depth with patient. All questions answered. This is a shared/split visit with my collaborating physician Dr. Jairon Nava. Any changes to the plan will be added to end as an addendum. Problem List/Past Medical History Ongoing Procedure/Surgical History No qualifying data available. Medications Inpatient amoxicillin-clavulanate 875 mg-125 mg oral tablet, 875 mg= 1 tab(s), Oral, BIDM Dextrose 50% IV Push, 25 gram(s)= 50 mL, IV Push, AsDirected, PRN heparin 5000 units/mL injection, 5000 unit(s)= 1 mL, Subcutaneous, q8h Miralax Powder Packet, 17 gram(s)= 15 mL, Oral, qDay, PRN morphine, 2 mg= 1 mL, IV Push, q3h, PRN morphine, 4 mg= 1 mL, IV Push, q3h, PRN Ofirmev IVPB, 1000 mg= 100 mL, IV Piggyback, q6hr, PRN oxyCODONE 5 mg oral tablet ( IMMEDIATE release ), 5 mg= 1 tab(s), Oral, q4h, PRN Pepcid, 20 mg= 1 tab(s), Oral, qDay Patient, 1 EA, Miscellaneous, qDay Multivitamins, 1 tab(s), Oral, qDay Tylenol, 650 mg= 2 tab(s), Oral, q4h, PRN Tylenol, 650 mg= 2 tab(s), Oral, q4h, PRN Zofran, 4 mg= 2 mL, IV Push, q4h, PRN Zofran, 4 mg= 2 mL, IV Push, q4h, PRN Home cephalexin 500 mg oral capsule, 500 mg= 1 cap(s), Oral, q12h, Not taking Multivitamins, 1 tab(s), Oral, qDay Reglan 10 mg oral tablet, 10 mg= 1 tab(s), Oral, TID Allergies Vicks Vapo Rub topical ointment Social History Alcohol Use: Never., 06/15/2024 Home/Environment Living situation: Home/Independent. Financial concerns: No., 06/15/2024 Nutrition/Health Type of diet: Regular., 06/15/2024 Sexual Sexually active: Yes., 06/15/2024 Substance Abuse Use: Never., 06/15/2024 Tobacco Nicotine Use: Never (less than 100 in lifetime)., 06/15/2024 Nicotine Use: denies., 06/13/2024 Family History Cancer: Grandparent. Diabetes: Father. Stroke: Father. Health Status Family Member(s) Immunizations No qualifying data available. Digitally Signed by HADLEY CHIANG on 06/18/2024 03:23 PM Digitally Signed by HADLEY CHIANG on 06/18/2024 03:24 PM [facility] [id number] Note Date of Service 06/18/24 Chief Complaint Abdominal Subjective Patient is a 19 year old female with no significant past medical history, patient is currently 18 weeks . Patient presented to [facility] the emergency department on June 14, 2024 with complaints of nausea, vomiting and right lower quadrant abdominal pain beginning 3 days prior. In the emergency department patient was thought to have a urinary tract infection Of note patient originally presented to [place] emergency department on 06/13/24 with complaints of generalized not feeling well, chills, lightheadedness, frequent urination. Patient was diagnosed withurinary tract infection and discharged with nitrofurantoin urine culture obtained at [facility] showing 50,000-80,000 Presumptive E. coli: Pansensitive. Patient was also evaluated at an urgent care on June 14, 2024. Patient was diagnosed with hyperemesis gravidarum. Patient then returned to [facility] emergency department on June 15, 2024. Patient was placed on IV ceftriaxone and admitted to [facility] for further evaluation management. Patient was evaluated by [facility] and there were concerns for acute appendicitis. It was recommended patient undergo MRI. MRI was not available at [facility] and patient was transferred to [facility] under hospitalist service with [facility] and general surgery consultation. Abdominal ultrasound revealed acute appendicitis. On June 16, 2024 patient went to the operating room with Dr. Michael López for acute perforated appendicitis with purulent peritonitis. Laparoscopic was converted to open appendectomy. Infectious disease consulted. Patient resting in bed, family x1 at bedside. Patient is tolerating diet. Patient c/o abdominal pain, rating pain 7 out of 10. Patient denies any shortness of breath, chest pain nausea or vomiting. Objective Vitals and Measurements T: 36.9 C (Oral) TMIN: 36.6 C (Oral) TMAX: 37.3 C (Oral) HR: 99 RR: 16 BP: 121/64 SpO2: 96% Intake and Output 7AM Yesterday to 7AM Today Intake and Output (Last 24 hours) Intake Oral Intake 820.00 Supplement Intake 0.00 Output Surgical Drain, Tube Output: 110.00 Urine Voided 2.00 Stool Count 1.00 Urine Count 2.00 Total Summary Total Intake 820.00 Total Output 112.00 Fluid Balance 708.00 Physical Exam Vitals Signs(Last 24 hrs)__ Last Charted Minimum Maximum Temp 36.9(JUNE 18 10:19) 36.9(JUNE 18:19) 36.9(JUNE 17 19:03) Heart Rate 94(JUNE 18 11:40) 90(JUNE 18 07:58) 97(JUNE 17 19:03) SBP 121(JUNE 18 10:19) 118(JUNE 18 04:10) 135(JUNE 17 23:00) DBP 64(JUNE 18 10:19) L 59(JUNE 18 04:10) 89(JUNE 17 19:03) Physical Exam General: No acute distress. Alert and Appropriate Skin: No rash. Warm, Dry, Intact HEENT: Head is normocephalic and atraumatic. No lesions. Pupils equal in size. Extraocular movements within normal limits. Nose: No septal deviation. Mouth: Oropharynx mucosa is without lesion. Neck: Supple. No lymphadenopathy or thyromegaly noted. Lungs: Bilaterally clear/diminished breath sounds with no crepitation or wheeze. Unlabored Cardiovascular: Heart is regular rhythm, S1S2, No extra-audible heart tones Abdomen: Abdomen is soft, nontender. Bowel sounds positive all four quadrants. Midline abdominal incision, open to air. SIMONE drain present. Extremities: No clubbing, cyanosis or edema. No calf tenderness. Adequate peripheral circulation. Neurological: The patient is awake, oriented to time, people and place. Following simple commands, moving all extremities. Weight Dosing Weight: 106.1 kg (06/15/24) Medications Medications (15) Active Scheduled: (5) amoxicillin-clavulanate 875 mg - 125 mg tablet 875 mg 1 tab(s), Oral, BIDM famotidine 20 mg tablet 20 mg 1 tab(s), Oral, qDay heparin 5,000 units/mL (1 mL) vial 5,000 unit(s) 1 mL, Subcutaneous, q8h multivitamin, Multivitamins with Folic Acid 1 mg Tab 1 tab(s), Oral, qDay potassium chloride 20 mEq ER tablet 40 mEq 2 tab(s), Oral, Once Continuous: (0) PRN: (10) acetaminophen 325 mg Tablet 650 mg 2 tab(s), Oral, q4h acetaminophen 325 mg Tablet 650 mg 2 tab(s), Oral, q4h acetaminophen PMX 1,000 mg 100 mL, IV Piggyback, q6hr dextrose 50% Solution Disp syringe 50 mL 25 gram(s) 50 mL, IV Push, AsDirected morphine 2 mg/mL 1 mL syringe 2 mg 1 mL, IV Push, q3h morphine 4 mg/mL 1mL INJ 4 mg 1 mL, IV Push, q3h ondansetron 2 mg/ 1 mL 2 mL INJ 4 mg 2 mL, IV Push, q4h ondansetron 2 mg/ 1 mL 2 mL INJ 4 mg 2 mL, IV Push, q4h oxycodone 5 mg tablet (immediate release) 5 mg 1 tab(s), Oral, q4h polyethylene glycol 3350 - UD packet 17 gram(s) 15 mL, Oral, qDay Lab Results 06/18 05:46 WBC: 9.7 Hgb: 11.3 L Hct: 32.8 L Platelet: 210 Neutrophil %: 79.1 H Glucose Level: 92 Sodium Level: 140 Potassium Level: 3.0 L BUN: 5.0 L Creatinine Lvl (s): 0.45 L 06/17 06:27 WBC: 16.8 H Hgb: 11.1 L Hct: 33.0 L Platelet: 219 Neutrophil %: 91.1 H Glucose Level: 96 Sodium Level: 137 Potassium Level: 3.5 BUN: 6.0 L Creatinine Lvl (s): 0.44 L EKG No qualifying data available. Assessment/Plan 1. Acute perforated Appendicitis with purulent peritonitis 2. 3. Leukocytosis 4. Hypokalemia 5. Tachycardia Acute perforated appendicitis with purulent peritonitis status post open appendectomy - Postop day 2. Routine postoperative care per general surgery - IV Tylenol scheduled changed to pron . Pain appears to be well-controlled at this time. -IV Zosyn has been transitioned to oral augmention per general surgery. Will asked ID for input. - Patient is currently on regular diet. Continue IV fluids while patient has decreased oral intake. 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 Appreciate input and recommendations. Hypokalemia -Continue monitor electrolytes as needed. Continue replace as needed -Potassium replaced today Tachycardia -resolved Previous records reviewed CBC/BMP reviewed Level of Care Indication SD monitor (other: specify in note) DVT Prophylaxis Heparin SQ Maintenance IVF Indication Other: specify in note Indwelling Urinary Catheter Indication NA No indwelling catheter Anticipated Timeline of Discharge 24 hours Anticipated DC Disposition Home without services Code status Full Code Plan of care discussed in depth with the patient and family at bedside. Patient verbalizes understanding and is agreeable plan of care. Discussed with my collaborating physician Dr. Kenji Pereira. This dictation was performed using voice recognition software and may include grammatical and/or spelling errors Orders: acetaminophen(Ofirmev IVPB), 1000 mg= 100 mL, IV Piggyback, q6hr, PRN potassium chloride(KCL), 40 mEq= 2 tab(s), Oral, Once Consult to Physician, 06/18/24 11:48:00 EDT, JAIRON NAVA MD, Routine, Acute perforated Appendicitis with purulent peritonitis/ Digitally Signed by ZULY DUGGAN APRN-DONYA on 06/18/2024 03:37 PM [facility] [id number] NoteEvent Display: SP Clin Info Procedure: OPEN APPENDECTOMY Preoperative diagnosis: ACUTE APPENDICITIS Postoperative diagnosis: ACUTE APPENDICITIS MD LA ROSARIO:VERIFY; Authored Date: [facility] 05-07-2025 Infectious disease Consult note Date of Service 06/18/2024 Reason for Consultation Acute appendicitis with peritonitis Referring Physician Amanda Duggan APRN History of Present Illness Patient is a 19-year-old female with no past medical history, currently 18 weeks presents to the hospital on 06/15/2024 as a transfer from [facility] with 3-day history of nausea, vomiting and right lower quadrant pain. Initially presented to [place] on 06/13/2024 with generalized weakness, chills, lightheadedness and frequent urination, she was diagnosed with UTI and started on nitrofurantoin. Urine culture grew E. coli. Recently diagnosed with hyperemesis gravidarum. On this admission, patient was evaluated by [facility] with concerns for appendicitis and was transferred due to lack of MRI at [facility]. Upon arrival, patient was found to have low-grade temperature 37.9, tachycardia with labs significant for leukocytosis of 19,300, CRP greater than 200. Abdominal ultrasound showed acute appendicitis with thickened and dilated appendix. Patient underwent open appendectomy on 06/16/2024 with findings of acute perforated appendicitis with purulent peritonitis. Operative findings showed evidence of necrosis perforation and spillage of pus and stool. Blood cultures with no growth to date. Empirically on Augmentin. Patient seen and independently evaluated the bedside. She is resting in bed comfortably in no acutedistress. Complains of back pain and mild abdominal pain. No fever, chills or night sweats. No nausea, vomiting or diarrhea. No shortness of breath or cough. No urinary complaints. Review of Systems Pertinent positives included within the HPI. Physical Exam Vitals and Measurements T: 36.9 C (Oral) TMIN: 36.6 C (Oral) TMAX: 37.3 C (Oral) HR: 94 (Monitored) RR: 16 BP: 121/64 SpO2:96% Weight Dosing Weight: 106.1 kg (06/15/24) General: No acute distress. Alert and Appropriate Skin: Abdominal incision is midline with right SIMONE drain in place. HEENT: Head is normocephalic and atraumatic. No lesions. Pupils equal in size. Extraocular movements within normal limits. Nose: No septal deviation. Mouth: Oropharynx mucosa is without lesion. Neck: Supple. No lymphadenopathy, thyromegaly noted. No carotid bruit heard. Lungs: Respirations are unlabored, bilaterally clear breath sounds with no crepitation or wheeze. Cardiovascular: Heart is regular rhythm, S1S2, no murmur Abdomen: Abdomen is soft, nontender. Bowel sounds positive all four quadrants. No hepatosplenomegaly noted. Extremities: No clubbing, cyanosis or edema. Peripheral pulses palpable. No calf tenderness. Adequate peripheral circulation. Neurological: The patient is awake, oriented to person, place and time. Following simple commands, moving all extremities. Lab Results 06/18 05:46 WBC: 9.7 Hgb: 11.3 L Hct: 32.8 L Platelet: 210 Neutrophil %: 79.1 H Glucose Level: 92 Sodium Level: 140 Potassium Level: 3.0 L BUN: 5.0 L Creatinine Lvl (s): 0.45 L 06/17 06:27 WBC: 16.8 H Hgb: 11.1 L Hct: 33.0 L Platelet: 219 Neutrophil %: 91.1 H Glucose Level: 96 Sodium Level: 137 Potassium Level: 3.5 BUN: 6.0 L Creatinine Lvl (s): 0.44 L Imaging Results and Diagnostics US Pelvis Non-OB Complete Result Date: June 16, 2024 Verified By: ANNAMARIA MAGAÑA MD CLINICAL STATEMENT: IMPRESSION: Normal ovaries with robust blood flow on duplex Doppler. Abnormal appearance of the appendix suggesting acute appendicitis in theappropriate clinical setting. Assessment/Plan Acute perforated appendicitis with purulent peritonitis Leukocytosis recent UTI Recent UTI Patient is a 19-year-old female with no past medical history, currently 18 weeks presents to the hospital on 06/15/2024 as a transfer from [facility] with 3-day history of nausea, vomiting and right lower quadrant pain. Initially presented to [place] on 06/13/2024 with generalized weakness, chills, lightheadedness and frequent urination, she was diagnosed with UTI and started on nitrofurantoin with urine culture growing E. coli. Transferred from [place] given lack of MRI and concern for appendicitis. Patient underwent open appendectomy on 06/16/2024 with findings of acute perforated appendicitis with purulent peritonitis so ID has been asked to evaluate. #1 acute appendicitis with purulent peritonitis in patient. Initial ultrasound reviewed, concerning for acute appendicitis. Patient underwent open appendectomy on 06/16/2024 with findings of acute perforated appendicitis with purulent peritonitis. Operative findings reviewed, concerning for necrosis perforation and spillage of pus in stool. Her abdominal pain has improved. Leukocytosis hasresolved and fevers have improved. Agree with general surgery's recommendations for Augmentin 875/125 p.o. twice daily as it is appropriate treatment, recommend 7 to 10-day course. Augmentin is safe during and not tetragonictowards the fetus. Recommend follow-up with general surgery upon discharge. Plan of care discussed in depth with patient. All questions answered. This is a shared/split visit with my collaborating physician Dr. Jairon Nava. Any changes to the plan will be added to end as an addendum. Problem List/Past Medical History Ongoing Procedure/Surgical History No qualifying data available. Medications Inpatient amoxicillin-clavulanate 875 mg-125 mg oral tablet, 875 mg= 1 tab(s), Oral, BIDM Dextrose 50% IV Push, 25 gram(s)= 50 mL, IV Push, AsDirected, PRN heparin 5000 units/mL injection, 5000 unit(s)= 1 mL, Subcutaneous, q8h Miralax Powder Packet, 17 gram(s)= 15 mL, Oral, qDay, PRN morphine, 2 mg= 1 mL, IV Push, q3h, PRN morphine, 4 mg= 1 mL, IV Push, q3h, PRN Ofirmev IVPB, 1000 mg= 100 mL, IV Piggyback, q6hr, PRN oxyCODONE 5 mg oral tablet ( IMMEDIATE release ), 5 mg= 1 tab(s), Oral, q4h, PRN Pepcid, 20 mg= 1 tab(s), Oral, qDay Patient, 1 EA, Miscellaneous, qDay Multivitamins, 1 tab(s), Oral, qDay Tylenol, 650 mg= 2 tab(s), Oral, q4h, PRN Tylenol, 650 mg= 2 tab(s), Oral, q4h, PRN Zofran, 4 mg= 2 mL, IV Push, q4h, PRN Zofran, 4 mg= 2 mL, IV Push, q4h, PRN Home cephalexin 500 mg oral capsule, 500 mg= 1 cap(s), Oral, q12h, Not taking Multivitamins, 1 tab(s), Oral, qDay Reglan 10 mg oral tablet, 10 mg= 1 tab(s), Oral, TID Allergies Vicks Vapo Rub topical ointment Social History Alcohol Use: Never., 06/15/2024 Home/Environment Living situation: Home/Independent. Financial concerns: No., 06/15/2024 Nutrition/Health Type of diet: Regular., 06/15/2024 Sexual Sexually active: Yes., 06/15/2024 Substance Abuse Use: Never., 06/15/2024 Tobacco Nicotine Use: Never (less than 100 in lifetime)., 06/15/2024 Nicotine Use: denies., 06/13/2024 Family History Cancer: Grandparent. Diabetes: Father. Stroke: Father. Health Status Family Member(s) Immunizations No qualifying data available. Digitally Signed by HADLEY CHIANG on 06/18/2024 03:23 PM Digitally Signed by HADLEY CHIANG on 06/18/2024 03:24 PM [facility] [id number] Note Date of Service 06/18/24 Chief Complaint Abdominal Subjective Patient is a 19 year old female with no significant past medical history, patient is currently 18 weeks . Patient presented to [facility] the emergency department on June 14, 2024 with complaints of nausea, vomiting and right lower quadrant abdominal pain beginning 3 days prior. In the emergency department patient was thought to have a urinary tract infection Of note patient originally presented to [place] emergency department on 06/13/24 with complaints of generalized not feeling well, chills, lightheadedness, frequent urination. Patient was diagnosed withurinary tract infection and discharged with nitrofurantoin urine culture obtained at [facility] showing 50,000-80,000 Presumptive E. coli: Pansensitive. Patient was also evaluated at an urgent care on June 14, 2024. Patient was diagnosed with hyperemesis gravidarum. Patient then returned to [facility] emergency department on June 15, 2024. Patient was placed on IV ceftriaxone and admitted to [facility] for further evaluation management. Patient was evaluated by [facility] and there were concerns for acute appendicitis. It was recommended patient undergo MRI. MRI was not available at [facility] and patient was transferred to [facility] under hospitalist service with [facility] and general surgery consultation. Abdominal ultrasound revealed acute appendicitis. On June 16, 2024 patient went to the operating room with Dr. Michael López for acute perforated appendicitis with purulent peritonitis. Laparoscopic was converted to open appendectomy. Infectious disease consulted. Patient resting in bed, family x1 at bedside. Patient is tolerating diet. Patient c/o abdominal pain, rating pain 7 out of 10. Patient denies any shortness of breath, chest pain nausea or vomiting. Objective Vitals and Measurements T: 36.9 C (Oral) TMIN: 36.6 C (Oral) TMAX: 37.3 C (Oral) HR: 99 RR: 16 BP: 121/64 SpO2: 96% Intake and Output 7AM Yesterday to 7AM Today Intake and Output (Last 24 hours) Intake Oral Intake 820.00 Supplement Intake 0.00 Output Surgical Drain, Tube Output: 110.00 Urine Voided 2.00 Stool Count 1.00 Urine Count 2.00 Total Summary Total Intake 820.00 Total Output 112.00 Fluid Balance 708.00 Physical Exam Vitals Signs(Last 24 hrs)__ Last Charted Minimum Maximum Temp 36.9(JUNE 18 10:19) 36.9(JUNE 18 10:19) 36.9(JUNE 17 19:03) Heart Rate 94(JUNE 18 11:40) 90(JUNE 18 07:58) 97(JUNE 17 19:03) SBP 121(JUNE 18 10:19) 118(JUNE 18 04:10) 135(JUNE 17 23:00) DBP 64(JUNE 18 10:19) L 59(JUNE 18 04:10) 89(JUNE 17 19:03) Physical Exam General: No acute distress. Alert and Appropriate Skin: No rash. Warm, Dry, Intact HEENT: Head is normocephalic and atraumatic. No lesions. Pupils equal in size. Extraocular movements within normal limits. Nose: No septal deviation. Mouth: Oropharynx mucosa is without lesion. Neck: Supple. No lymphadenopathy or thyromegaly noted. Lungs: Bilaterally clear/diminished breath sounds with no crepitation or wheeze. Unlabored Cardiovascular: Heart is regular rhythm, S1S2, No extra-audible heart tones Abdomen: Abdomen is soft, nontender. Bowel sounds positive all four quadrants. Midline abdominal incision, open to air. SIMONE drain present. Extremities: No clubbing, cyanosis or edema. No calf tenderness. Adequate peripheral circulation. Neurological: The patient is awake, oriented to time, people and place. Following simple commands, moving all extremities. Weight Dosing Weight: 106.1 kg (06/15/24) Medications Medications (15) Active Scheduled: (5) amoxicillin-clavulanate 875 mg - 125 mg tablet 875 mg 1 tab(s), Oral, BIDM famotidine 20 mg tablet 20 mg 1 tab(s), Oral, qDay heparin 5,000 units/mL (1 mL) vial 5,000 unit(s) 1 mL, Subcutaneous, q8h multivitamin, Multivitamins with Folic Acid 1 mg Tab 1 tab(s), Oral, qDay potassium chloride 20 mEq ER tablet 40 mEq 2 tab(s), Oral, Once Continuous: (0) PRN: (10) acetaminophen 325 mg Tablet 650 mg 2 tab(s), Oral, q4h acetaminophen 325 mg Tablet 650 mg 2 tab(s), Oral, q4h acetaminophen PMX 1,000 mg 100 mL, IV Piggyback, q6hr dextrose 50% Solution Disp syringe 50 mL 25 gram(s) 50 mL, IV Push, AsDirected morphine 2 mg/mL 1 mL syringe 2 mg 1 mL, IV Push, q3h morphine 4 mg/mL 1mL INJ 4 mg 1 mL, IV Push, q3h ondansetron 2 mg/ 1 mL 2 mL INJ 4 mg 2 mL, IV Push, q4h ondansetron 2 mg/ 1 mL 2 mL INJ 4 mg 2 mL, IV Push, q4h oxycodone 5 mg tablet (immediate release) 5 mg 1 tab(s), Oral, q4h polyethylene glycol 3350 - UD packet 17 gram(s) 15 mL, Oral, qDay Lab Results 06/18 05:46 WBC: 9.7 Hgb: 11.3 L Hct: 32.8 L Platelet: 210 Neutrophil %: 79.1 H Glucose Level: 92 Sodium Level: 140 Potassium Level: 3.0 L BUN: 5.0 L Creatinine Lvl (s): 0.45 L 06/17 06:27 WBC: 16.8 H Hgb: 11.1 L Hct: 33.0 L Platelet: 219 Neutrophil %: 91.1 H Glucose Level: 96 Sodium Level: 137 Potassium Level: 3.5 BUN: 6.0 L Creatinine Lvl (s): 0.44 L EKG No qualifying data available. Assessment/Plan 1. Acute perforated Appendicitis with purulent peritonitis 2. 3. Leukocytosis 4. Hypokalemia 5. Tachycardia Acute perforated appendicitis with purulent peritonitis status post open appendectomy - Postop day 2. Routine postoperative care per general surgery - IV Tylenol scheduled changed to pron . Pain appears to be well-controlled at this time. -IV Zosyn has been transitioned to oral augmention per general surgery. Will asked ID for input. - Patient is currently on regular diet. Continue IV fluids while patient has decreased oral intake. 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 Appreciate input and recommendations. Hypokalemia -Continue monitor electrolytes as needed. Continue replace as needed -Potassium replaced today Tachycardia -resolved Previous records reviewed CBC/BMP reviewed Level of Care Indication SD monitor (other: specify in note) DVT Prophylaxis Heparin SQ Maintenance IVF Indication Other: specify in note Indwelling Urinary Catheter Indication NA No indwelling catheter Anticipated Timeline of Discharge 24 hours Anticipated DC Disposition Home without services Code status Full Code Plan of care discussed in depth with the patient and family at bedside. Patient verbalizes understanding and is agreeable plan of care. Discussed with my collaborating physician Dr. Kenji Pereira. This dictation was performed using voice recognition software and may include grammatical and/or spelling errors Orders: acetaminophen(Ofirmev IVPB), 1000 mg= 100 mL, IV Piggyback, q6hr, PRN potassium chloride(KCL), 40 mEq= 2 tab(s), Oral, Once Consult to Physician, 06/18/24 11:48:00 EDT, JAIRON NVAA MD, Routine, Acute perforated Appendicitis with purulent peritonitis/ Digitally Signed by ZULY DUGGAN on 06/18/2024 03:37 PM [facility] [id number] [facility] Progress note Date of Service 06/18/2024 Chief Complaint Postoperative Subjective Patient seen resting supine in bed with nursing and a visitor present at bedside. She complained ofabdominal/incisional pain. She denied any difficulties tolerating her clear liquid diet. She statedthat she has had return of GI function postoperatively. Objective Vitals and Measurements T: 36.8 C (Oral) TMIN: 36.6 C (Oral) TMAX: 37.3 C (Oral) HR: 90 (Monitored) RR: 16 BP: 133/64 SpO2:94% Intake and Output 7AM Yesterday to 7AM Today Intake and Output (Last 24 hours) Intake Oral Intake 920.00 Supplement Intake 0.00 Output Surgical Drain, Tube Output: 110.00 Urine Voided 2.00 Urinary Catheter Output: 300.00 Stool Count 1.00 Urine Count 2.00 Total Summary Total Intake 920.00 Total Output 412.00 Fluid Balance 508.00 Physical Exam General: Awake, alert and oriented x4. In no apparent distress. Able to answer questions appropriately and speak in full sentences. Supine in bed. HEENT: Sclera anicteric. Heart: S1 and S2 present. Lungs: Chest rise symmetrical. Respirations unlabored. Abdomen: Soft, rounded and tender. No rigidity or guarding noted. Abdominal incision sites were approximated with ros. SIMONE drain in place with serous drainage. Extremities: Freely moving. Psychiatric: Calm and cooperative. Weight Dosing Weight: 106.1 kg (06/15/24) Medications Medications (15) Active Scheduled: (5) amoxicillin-clavulanate 875 mg - 125 mg tablet 875 mg 1 tab(s), Oral, BIDM famotidine 20 mg tablet 20 mg 1 tab(s), Oral, qDay heparin 5,000 units/mL (1 mL) vial 5,000 unit(s) 1 mL, Subcutaneous, q8h multivitamin, Multivitamins with Folic Acid 1 mg Tab 1 tab(s), Oral, qDay potassium chloride 20 mEq ER tablet 40 mEq 2 tab(s), Oral, Once Continuous: (0) PRN: (10) acetaminophen 325 mg Tablet 650 mg 2 tab(s), Oral, q4h acetaminophen 325 mg Tablet 650 mg 2 tab(s), Oral, q4h acetaminophen PMX 1,000 mg 100 mL, IV Piggyback, q6hr dextrose 50% Solution Disp syringe 50 mL 25 gram(s) 50 mL, IV Push, AsDirected morphine 2 mg/mL 1 mL syringe 2 mg 1 mL, IV Push, q3h morphine 4 mg/mL 1mL INJ 4 mg 1 mL, IV Push, q3h ondansetron 2 mg/ 1 mL 2 mL INJ 4 mg 2 mL, IV Push, q4h ondansetron 2 mg/ 1 mL 2 mL INJ 4 mg 2 mL, IV Push, q4h oxycodone 5 mg tablet (immediate release) 5 mg 1 tab(s), Oral, q4h polyethylene glycol 3350 - UD packet 17 gram(s) 15 mL, Oral, qDay Lab Results 06/18 05:46 WBC: 9.7 Hgb: 11.3 L Hct: 32.8 L Platelet: 210 Neutrophil %: 79.1 H Glucose Level: 92 Sodium Level: 140 Potassium Level: 3.0 L BUN: 5.0 L Creatinine Lvl (s): 0.45 L 06/17 06:27 WBC: 16.8 H Hgb: 11.1 L Hct: 33.0 L Platelet: 219 Neutrophil %: 91.1 H Glucose Level: 96 Sodium Level: 137 Potassium Level: 3.5 BUN: 6.0 L Creatinine Lvl (s): 0.44 L 06/16 20:59 Glucose Level: 97 Sodium Level: 138 Potassium Level: 3.4 L BUN: <5.0 L Creatinine Lvl (s): 0.45 L EKG No qualifying data available. Assessment/Plan Acute perforated Appendicitis with purulent peritonitis Hypokalemia Leukocytosis Tachycardia This patient is a 19-year-old, 18 week , female who is postoperative day #2 following an open appendectomy secondary to perforated appendicitis with purulent peritonitis at the time of surgery. On examination, she was seen resting supine in bed. She did not appear toxic or in any acute distress. She complained of incisional pain. She denied nausea and vomiting. She has been tolerating a liquid diet without difficulty. Her incision sites were inspected and was approximated with ros. JPdrain present with serous drainage. SIMONE drain output of the last 24 hours noted to be 110 mL. Morning laboratory data, vital signs and I/O have been reviewed. Her leukocytosis has resolved on this morning's labs. Her potassium was decreased at 3.0. Replacement has been ordered. She remains onIV Zosyn. Plan: 1. Transition patient to oral antibiotics 2. Discontinue Reglan 3. May leave incision sites open to air 4. Continue SIMONE drain care/management 5. As needed pain medication/antiemetics 6. Advance diet 7. Encouraged mobilization in the room/going up to the chair for all meals 8. Encouraged hourly incentive spirometry use and coughing deep breathing exercises 9. DVT prophylaxis with subcutaneous heparin 10. Medical management/electrolyte replacement per the primary medical team 11. [facility]LOADER following for her care 12. From the surgical standpoint, the patient will likely be stable for discharge home within the next 24 hours The case has been discussed with Dr. López. Please see his addendum for further details. Digitally Signed by BERTHA HENRY on 06/18/2024 08:51 AM [facility] [id number] [facility] Progress note Date of Service 06/18/2024 Chief Complaint Postoperative Subjective Patient seen resting supine in bed with nursing and a visitor present at bedside. She complained ofabdominal/incisional pain. She denied any difficulties tolerating her clear liquid diet. She statedthat she has had return of GI function postoperatively. Objective Vitals and Measurements T: 36.8 C (Oral) TMIN: 36.6 C (Oral) TMAX: 37.3 C (Oral) HR: 90 (Monitored) RR: 16 BP: 133/64 SpO2:94% Intake and Output 7AM Yesterday to 7AM Today Intake and Output (Last 24 hours) Intake Oral Intake 920.00 Supplement Intake 0.00 Output Surgical Drain, Tube Output: 110.00 Urine Voided 2.00 Urinary Catheter Output: 300.00 Stool Count 1.00 Urine Count 2.00 Total Summary Total Intake 920.00 Total Output 412.00 Fluid Balance 508.00 Physical Exam General: Awake, alert and oriented x4. In no apparent distress. Able to answer questions appropriately and speak in full sentences. Supine in bed. HEENT: Sclera anicteric. Heart: S1 and S2 present. Lungs: Chest rise symmetrical. Respirations unlabored. Abdomen: Soft, rounded and tender. No rigidity or guarding noted. Abdominal incision sites were approximated with ros. SIMONE drain in place with serous drainage. Extremities: Freely moving. Psychiatric: Calm and cooperative. Weight Dosing Weight: 106.1 kg (06/15/24) Medications Medications (15) Active Scheduled: (5) amoxicillin-clavulanate 875 mg - 125 mg tablet 875 mg 1 tab(s), Oral, BIDM famotidine 20 mg tablet 20 mg 1 tab(s), Oral, qDay heparin 5,000 units/mL (1 mL) vial 5,000 unit(s) 1 mL, Subcutaneous, q8h multivitamin, Multivitamins with Folic Acid 1 mg Tab 1 tab(s), Oral, qDay potassium chloride 20 mEq ER tablet 40 mEq 2 tab(s), Oral, Once Continuous: (0) PRN: (10) acetaminophen 325 mg Tablet 650 mg 2 tab(s), Oral, q4h acetaminophen 325 mg Tablet 650 mg 2 tab(s), Oral, q4h acetaminophen PMX 1,000 mg 100 mL, IV Piggyback, q6hr dextrose 50% Solution Disp syringe 50 mL 25 gram(s) 50 mL, IV Push, AsDirected morphine 2 mg/mL 1 mL syringe 2 mg 1 mL, IV Push, q3h morphine 4 mg/mL 1mL INJ 4 mg 1 mL, IV Push, q3h ondansetron 2 mg/ 1 mL 2 mL INJ 4 mg 2 mL, IV Push, q4h ondansetron 2 mg/ 1 mL 2 mL INJ 4 mg 2 mL, IV Push, q4h oxycodone 5 mg tablet (immediate release) 5 mg 1 tab(s), Oral, q4h polyethylene glycol 3350 - UD packet 17 gram(s) 15 mL, Oral, qDay Lab Results 06/18 05:46 WBC: 9.7 Hgb: 11.3 L Hct: 32.8 L Platelet: 210 Neutrophil %: 79.1 H Glucose Level: 92 Sodium Level: 140 Potassium Level: 3.0 L BUN: 5.0 L Creatinine Lvl (s): 0.45 L 06/17 06:27 WBC: 16.8 H Hgb: 11.1 L Hct: 33.0 L Platelet: 219 Neutrophil %: 91.1 H Glucose Level: 96 Sodium Level: 137 Potassium Level: 3.5 BUN: 6.0 L Creatinine Lvl (s): 0.44 L 05 20:59 Glucose Level: 97 Sodium Level: 138 Potassium Level: 3.4 L BUN: <5.0 L Creatinine Lvl (s): 0.45 L EKG No qualifying data available. Assessment/Plan Acute perforated Appendicitis with purulent peritonitis Hypokalemia Leukocytosis Tachycardia This patient is a 19-year-old, 18 week , female who is postoperative day #2 following an open appendectomy secondary to perforated appendicitis with purulent peritonitis at the time of surgery. On examination, she was seen resting supine in bed. She did not appear toxic or in any acute distress. She complained of incisional pain. She denied nausea and vomiting. She has been tolerating a liquid diet without difficulty. Her incision sites were inspected and was approximated with ros. JPdrain present with serous drainage. SIMONE drain output of the last 24 hours noted to be 110 mL. Morning laboratory data, vital signs and I/O have been reviewed. Her leukocytosis has resolved on this morning's labs. Her potassium was decreased at 3.0. Replacement has been ordered. She remains onIV Zosyn. Plan: 1. Transition patient to oral antibiotics 2. Discontinue Reglan 3. May leave incision sites open to air 4. Continue SIMONE drain care/management 5. As needed pain medication/antiemetics 6. Advance diet 7. Encouraged mobilization in the room/going up to the chair for all meals 8. Encouraged hourly incentive spirometry use and coughing deep breathing exercises 9. DVT prophylaxis with subcutaneous heparin 10. Medical management/electrolyte replacement per the primary medical team 11. [facility] [employer]LOADER following for her care 12. From the surgical standpoint, the patient will likely be stable for discharge home within the next 24 hours The case has been discussed with Dr. López. Please see his addendum for further details. Digitally Signed by BERTHA HENRY on 06/18/2024 08:51 AM [facility] [id number] Gynecology Progress note Date of Service 06/18/24 Subjective POD 2 from Laparoscopic converted open appendectomy. No acute events overnight. Patient endorses abdominal that is moderately controlled on current pain meds. Denies Nausea/vomiting/fever/chills/SOB/chest pain. Ambulating. Tolerating PO. Denies vaginal bleeding, cramping. Objective Vitals and Measurements T: 36.6 C (Oral) TMIN: 36.6 C (Oral) TMAX: 37.3 C (Oral) HR: 84 RR: 16 BP: 118/59 SpO2: 94% Intake and Output 7AM Yesterday to 7AM Today Intake and Output (Last 24 hours) Intake Oral Intake 920.00 Output Surgical Drain, Tube Output: 110.00 Urine Voided 2.00 Urinary Catheter Output: 300.00 Stool Count 1.00 Urine Count 2.00 Total Summary Total Intake 920.00 Total Output 412.00 Fluid Balance 508.00 Physical Exam GENERAL: NAD NEUROLOGICAL: A&Ox3 HEENT: EOMI, mucus membranes moist CARDIOVASCULAR: regular rate RESPIRATORY: equal rise and fall bilaterally ABDOMEN: soft, gravid, tender. Laparoscopic port sites dressed in gauze. SIMONE drain located RLQ with serosanguineous fluid (recently drained). Low midline vertical incision dressed in gauze. EXREMETIES: No peripheral edema. SCDs in place Weight Dosing Weight: 106.1 kg (06/15/24) Medications Medications (14) Active Scheduled: (5) famotidine 20 mg tablet 20 mg 1 tab(s), Oral, qDay heparin 5,000 units/mL (1 mL) vial 5,000 unit(s) 1 mL, Subcutaneous, q8h metoclopramide 10 mg tablet 10 mg 1 tab(s), Oral, TID multivitamin, Multivitamins with Folic Acid 1 mg Tab 1 tab(s), Oral, qDay piperacillin-tazobactam PMX 3.375 gram(s) 70 mL, IV Piggyback, q8hr Continuous: (0) PRN: (9) acetaminophen 325 mg Tablet 650 mg 2 tab(s), Oral, q4h acetaminophen 325 mg Tablet 650 mg 2 tab(s), Oral, q4h dextrose 50% Solution Disp syringe 50 mL 25 gram(s) 50 mL, IV Push, AsDirected morphine 2 mg/mL 1 mL syringe 2 mg 1 mL, IV Push, q3h morphine 4 mg/mL 1mL INJ 4 mg 1 mL, IV Push, q3h ondansetron 2 mg/ 1 mL 2 mL INJ 4 mg 2 mL, IV Push, q4h ondansetron 2 mg/ 1 mL 2 mL INJ 4 mg 2 mL, IV Push, q4h oxycodone 5 mg tablet (immediate release) 5 mg 1 tab(s), Oral, q4h polyethylene glycol 3350 - UD packet 17 gram(s) 15 mL, Oral, qDay Lab Results 06/18 05:46 WBC: 9.7 Hgb: 11.3 L Hct: 32.8 L Platelet: 210 Neutrophil %: 79.1 H 06/17 06:27 WBC: 16.8 H Hgb: 11.1 L Hct: 33.0 L Platelet: 219 Neutrophil %: 91.1 H Glucose Level: 96 Sodium Level: 137 Potassium Level: 3.5 BUN: 6.0 L Creatinine Lvl (s): 0.44 L 06/16 20:59 Glucose Level: 97 Sodium Level: 138 Potassium Level: 3.4 L BUN: <5.0 L Creatinine Lvl (s): 0.45 L EKG No qualifying data available. Assessment/Plan Code: Full IVF: LR UOP: Spontaneously voiding Abx: Zosyn Diet: Clear Liquid Diet PPx: N/A Lines: Peripheral IV Consults: Gen Surg 19 yo at 18w6d, with TUSHAR 11/14/24 by LMP c/w 12wkUS currently admitted for appendicitis. is complicated by Asthma, Tobacco use, obesity, h/o E.coli UTI, Lap converted open Appendectomy >> Perforated Appendicitis w/ purulent peritonitis -VSS, AF -WBC downtrending 9.6 today from 16.8 on 06/17/24 -SIMONE drained: 110 -For Doptones qshift. Dispo: Continue to monitor. For Doptones qshift. D/w: Dr. Wood Digitally Signed by JAZMYNE WRIGHT MD on 06/18/2024 06:47 AM [facility] [id number] Gynecology Progress note Date of Service 06/18/24 Subjective POD 2 from Laparoscopic converted open appendectomy. No acute events overnight. Patient endorses abdominal that is moderately controlled on current pain meds. Denies Nausea/vomiting/fever/chills/SOB/chest pain. Ambulating. Tolerating PO. Denies vaginal bleeding, cramping. Objective Vitals and Measurements T: 36.6 C (Oral) TMIN: 36.6 C (Oral) TMAX: 37.3 C (Oral) HR: 84 RR: 16 BP: 118/59 SpO2: 94% Intake and Output 7AM Yesterday to 7AM Today Intake and Output (Last 24 hours) Intake Oral Intake 920.00 Output Surgical Drain, Tube Output: 110.00 Urine Voided 2.00 Urinary Catheter Output: 300.00 Stool Count 1.00 Urine Count 2.00 Total Summary Total Intake 920.00 Total Output 412.00 Fluid Balance 508.00 Physical Exam GENERAL: NAD NEUROLOGICAL: A&Ox3 HEENT: EOMI, mucus membranes moist CARDIOVASCULAR: regular rate RESPIRATORY: equal rise and fall bilaterally ABDOMEN: soft, gravid, tender. Laparoscopic port sites dressed in gauze. SIMONE drain located RLQ with serosanguineous fluid (recently drained). Low midline vertical incision dressed in gauze. EXREMETIES: No peripheral edema. SCDs in place Weight Dosing Weight: 106.1 kg (06/15/24) Medications Medications (14) Active Scheduled: (5) famotidine 20 mg tablet 20 mg 1 tab(s), Oral, qDay heparin 5,000 units/mL (1 mL) vial 5,000 unit(s) 1 mL, Subcutaneous, q8h metoclopramide 10 mg tablet 10 mg 1 tab(s), Oral, TID multivitamin, Multivitamins with Folic Acid 1 mg Tab 1 tab(s), Oral, qDay piperacillin-tazobactam PMX 3.375 gram(s) 70 mL, IV Piggyback, q8hr Continuous: (0) PRN: (9) acetaminophen 325 mg Tablet 650 mg 2 tab(s), Oral, q4h acetaminophen 325 mg Tablet 650 mg 2 tab(s), Oral, q4h dextrose 50% Solution Disp syringe 50 mL 25 gram(s) 50 mL, IV Push, AsDirected morphine 2 mg/mL 1 mL syringe 2 mg 1 mL, IV Push, q3h morphine 4 mg/mL 1mL INJ 4 mg 1 mL, IV Push, q3h ondansetron 2 mg/ 1 mL 2 mL INJ 4 mg 2 mL, IV Push, q4h ondansetron 2 mg/ 1 mL 2 mL INJ 4 mg 2 mL, IV Push, q4h oxycodone 5 mg tablet (immediate release) 5 mg 1 tab(s), Oral, q4h polyethylene glycol 3350 - UD packet 17 gram(s) 15 mL, Oral, qDay Lab Results 06/18 05:46 WBC: 9.7 Hgb: 11.3 L Hct: 32.8 L Platelet: 210 Neutrophil %: 79.1 H 06/17 06:27 WBC: 16.8 H Hgb: 11.1 L Hct: 33.0 L Platelet: 219 Neutrophil %: 91.1 H Glucose Level: 96 Sodium Level: 137 Potassium Level: 3.5 BUN: 6.0 L Creatinine Lvl (s): 0.44 L 06/16 20:59 Glucose Level: 97 Sodium Level: 138 Potassium Level: 3.4 L BUN: <5.0 L Creatinine Lvl (s): 0.45 L EKG No qualifying data available. Assessment/Plan Code: Full IVF: LR UOP: Spontaneously voiding Abx: Zosyn Diet: Clear Liquid Diet PPx: N/A Lines: Peripheral IV Consults: Gen Surg 19 yo at 18w6d, with TUSHAR 11/14/24 by LMP c/w 12wkUS currently admitted for appendicitis. is complicated by Asthma, Tobacco use, obesity, h/o E.coli UTI, Lap converted open Appendectomy >> Perforated Appendicitis w/ purulent peritonitis -VSS, AF -WBC downtrending 9.6 today from 16.8 on 06/17/24 -SIMONE drained: 110 -For Doptones qshift. Dispo: Continue to monitor. For Doptones qshift. D/w: Dr. Wood Digitally Signed by JAZMYNE WRIGHT MD on 06/18/2024 06:47 AM [facility] [id number] Gynecology Progress note Date of Service 06/18/24 Subjective POD 2 from Laparoscopic converted open appendectomy. No acute events overnight. Patient endorses abdominal that is moderately controlled on current pain meds. Denies Nausea/vomiting/fever/chills/SOB/chest pain. Ambulating. Tolerating PO. Denies vaginal bleeding, cramping. Objective Vitals and Measurements T: 36.6 C (Oral) TMIN: 36.6 C (Oral) TMAX: 37.3 C (Oral) HR: 84 RR: 16 BP: 118/59 SpO2: 94% Intake and Output 7AM Yesterday to 7AM Today Intake and Output (Last 24 hours) Intake Oral Intake 920.00 Output Surgical Drain, Tube Output: 110.00 Urine Voided 2.00 Urinary Catheter Output: 300.00 Stool Count 1.00 Urine Count 2.00 Total Summary Total Intake 920.00 Total Output 412.00 Fluid Balance 508.00 Physical Exam GENERAL: NAD NEUROLOGICAL: A&Ox3 HEENT: EOMI, mucus membranes moist CARDIOVASCULAR: regular rate RESPIRATORY: equal rise and fall bilaterally ABDOMEN: soft, gravid, tender. Laparoscopic port sites dressed in gauze. SIMONE drain located RLQ with serosanguineous fluid (recently drained). Low midline vertical incision dressed in gauze. EXREMETIES: No peripheral edema. SCDs in place Weight Dosing Weight: 106.1 kg (06/15/24) Medications Medications (14) Active Scheduled: (5) famotidine 20 mg tablet 20 mg 1 tab(s), Oral, qDay heparin 5,000 units/mL (1 mL) vial 5,000 unit(s) 1 mL, Subcutaneous, q8h metoclopramide 10 mg tablet 10 mg 1 tab(s), Oral, TID multivitamin, Multivitamins with Folic Acid 1 mg Tab 1 tab(s), Oral, qDay piperacillin-tazobactam PMX 3.375 gram(s) 70 mL, IV Piggyback, q8hr Continuous: (0) PRN: (9) acetaminophen 325 mg Tablet 650 mg 2 tab(s), Oral, q4h acetaminophen 325 mg Tablet 650 mg 2 tab(s), Oral, q4h dextrose 50% Solution Disp syringe 50 mL 25 gram(s) 50 mL, IV Push, AsDirected morphine 2 mg/mL 1 mL syringe 2 mg 1 mL, IV Push, q3h morphine 4 mg/mL 1mL INJ 4 mg 1 mL, IV Push, q3h ondansetron 2 mg/ 1 mL 2 mL INJ 4 mg 2 mL, IV Push, q4h ondansetron 2 mg/ 1 mL 2 mL INJ 4 mg 2 mL, IV Push, q4h oxycodone 5 mg tablet (immediate release) 5 mg 1 tab(s), Oral, q4h polyethylene glycol 3350 - UD packet 17 gram(s) 15 mL, Oral, qDay Lab Results 06/18 05:46 WBC: 9.7 Hgb: 11.3 L Hct: 32.8 L Platelet: 210 Neutrophil %: 79.1 H 06/17 06:27 WBC: 16.8 H Hgb: 11.1 L Hct: 33.0 L Platelet: 219 Neutrophil %: 91.1 H Glucose Level: 96 Sodium Level: 137 Potassium Level: 3.5 BUN: 6.0 L Creatinine Lvl (s): 0.44 L 06/16 20:59 Glucose Level: 97 Sodium Level: 138 Potassium Level: 3.4 L BUN: <5.0 L Creatinine Lvl (s): 0.45 L EKG No qualifying data available. Assessment/Plan Code: Full IVF: LR UOP: Spontaneously voiding Abx: Zosyn Diet: Clear Liquid Diet PPx: N/A Lines: Peripheral IV Consults: Gen Surg 19 yo at 18w6d, with TUSHAR 11/14/24 by LMP c/w 12wkUS currently admitted for appendicitis. is complicated by Asthma, Tobacco use, obesity, h/o E.coli UTI, Lap converted open Appendectomy >> Perforated Appendicitis w/ purulent peritonitis -VSS, AF -WBC downtrending 9.6 today from 16.8 on 06/17/24 -SIMONE drained: 110 -For Doptones qshift. Dispo: Continue to monitor. For Doptones qshift. D/w: Dr. Wood Digitally Signed by JAZMYNE WRIGHT MD on 06/18/2024 06:47 AM [facility] [id number] Gynecology Progress note Date of Service 06/18/24 Subjective POD 2 from Laparoscopic converted open appendectomy. No acute events overnight. Patient endorses abdominal that is moderately controlled on current pain meds. Denies Nausea/vomiting/fever/chills/SOB/chest pain. Ambulating. Tolerating PO. Denies vaginal bleeding, cramping. Objective Vitals and Measurements T: 36.6 C (Oral) TMIN: 36.6 C (Oral) TMAX: 37.3 C (Oral) HR: 84 RR: 16 BP: 118/59 SpO2: 94% Intake and Output 7AM Yesterday to 7AM Today Intake and Output (Last 24 hours) Intake Oral Intake 920.00 Output Surgical Drain, Tube Output: 110.00 Urine Voided 2.00 Urinary Catheter Output: 300.00 Stool Count 1.00 Urine Count 2.00 Total Summary Total Intake 920.00 Total Output 412.00 Fluid Balance 508.00 Physical Exam GENERAL: NAD NEUROLOGICAL: A&Ox3 HEENT: EOMI, mucus membranes moist CARDIOVASCULAR: regular rate RESPIRATORY: equal rise and fall bilaterally ABDOMEN: soft, gravid, tender. Laparoscopic port sites dressed in gauze. SIMONE drain located RLQ with serosanguineous fluid (recently drained). Low midline vertical incision dressed in gauze. EXREMETIES: No peripheral edema. SCDs in place Weight Dosing Weight: 106.1 kg (06/15/24) Medications Medications (14) Active Scheduled: (5) famotidine 20 mg tablet 20 mg 1 tab(s), Oral, qDay heparin 5,000 units/mL (1 mL) vial 5,000 unit(s) 1 mL, Subcutaneous, q8h metoclopramide 10 mg tablet 10 mg 1 tab(s), Oral, TID multivitamin, Multivitamins with Folic Acid 1 mg Tab 1 tab(s), Oral, qDay piperacillin-tazobactam PMX 3.375 gram(s) 70 mL, IV Piggyback, q8hr Continuous: (0) PRN: (9) acetaminophen 325 mg Tablet 650 mg 2 tab(s), Oral, q4h acetaminophen 325 mg Tablet 650 mg 2 tab(s), Oral, q4h dextrose 50% Solution Disp syringe 50 mL 25 gram(s) 50 mL, IV Push, AsDirected morphine 2 mg/mL 1 mL syringe 2 mg 1 mL, IV Push, q3h morphine 4 mg/mL 1mL INJ 4 mg 1 mL, IV Push, q3h ondansetron 2 mg/ 1 mL 2 mL INJ 4 mg 2 mL, IV Push, q4h ondansetron 2 mg/ 1 mL 2 mL INJ 4 mg 2 mL, IV Push, q4h oxycodone 5 mg tablet (immediate release) 5 mg 1 tab(s), Oral, q4h polyethylene glycol 3350 - UD packet 17 gram(s) 15 mL, Oral, qDay Lab Results 06/18 05:46 WBC: 9.7 Hgb: 11.3 L Hct: 32.8 L Platelet: 210 Neutrophil %: 79.1 H 06/17 06:27 WBC: 16.8 H Hgb: 11.1 L Hct: 33.0 L Platelet: 219 Neutrophil %: 91.1 H Glucose Level: 96 Sodium Level: 137 Potassium Level: 3.5 BUN: 6.0 L Creatinine Lvl (s): 0.44 L 06/16 20:59 Glucose Level: 97 Sodium Level: 138 Potassium Level: 3.4 L BUN: <5.0 L Creatinine Lvl (s): 0.45 L EKG No qualifying data available. Assessment/Plan Code: Full IVF: LR UOP: Spontaneously voiding Abx: Zosyn Diet: Clear Liquid Diet PPx: N/A Lines: Peripheral IV Consults: Gen Surg 19 yo at 18w6d, with TUSHAR 11/14/24 by LMP c/w 12wkUS currently admitted for appendicitis. is complicated by Asthma, Tobacco use, obesity, h/o E.coli UTI, Lap converted open Appendectomy >> Perforated Appendicitis w/ purulent peritonitis -VSS, AF -WBC downtrending 9.6 today from 16.8 on 06/17/24 -SIMONE drained: 110 -For Doptones qshift. Dispo: Continue to monitor. For Doptones qshift. D/w: Dr. Wood Digitally Signed by JAZMYNE WRIGHT MD on 06/18/2024 06:47 AM [facility] [id number] Note Date of Service 06/17/24 Chief Complaint Abdominal pain Subjective Patient is a 19 year old female with no significant past medical history, patient is currently 18 weeks . Patient presented to [place] over the emergency department on June 14, 2024 with complaints of nausea, vomiting and right lower quadrant abdominal pain beginning 3 days prior. In the emergency department patient was thought to have a urinary tract infection Of note patient originally presented to [place] emergency department on 06/13/24 with complaints of generalized not feeling well, chills, lightheadedness, frequent urination. Patient was diagnosed withurinary tract infection and discharged with nitrofurantoin urine culture obtained at [facility] showing 50,000-80,000 Presumptive E. coli: Pansensitive. Patient was also evaluated at an urgent care on June 14, 2024. Patient was diagnosed with hyperemesis gravidarum. Patient then returned to [facility] emergency department on June 15, 2024. Patient was placed on IV ceftriaxone and admitted to [facility] for further evaluation management. Patient was evaluated by [facility] and there were concerns for acute appendicitis. It was recommended patient undergo MRI. MRI was not available at [facility] and patient was transferred to [facility] under hospitalist service with [facility] and general surgery consultation. Abdominal ultrasound revealed acute appendicitis. On June 16, 2024 patient went to the operating room with Dr. Michael López for acute perforated appendicitis with purulent peritonitis. Laparoscopic was converted to open appendectomy. Patient resting in bed, family x2 at bedside (one family member sleeping throughout the exam). Patient states she is feeling better. She denies any nausea, vomiting or abdominal pain. Patient states she was able to tolerate apple juice without difficulty. She denies shortness of breath and chest pain Objective Vitals and Measurements T: 36.9 C (Oral) TMIN: 36.5 C (Temporal Artery) TMAX: 37.62 C HR: 109 (Monitored) RR: 16 BP: 132/69SpO2: 97% Intake and Output 7AM Yesterday to 7AM Today Intake and Output (Last 24 hours) Intake Administration Information 2500.00 Oral Intake 200.00 Output Surgical Drain, Tube Output: 155.00 Urinary Catheter Output: 575.00 Intra-Op EBL 20.00 Stool Count 0.00 Urine Count 2.00 Total Summary Total Intake 2700.00 Total Output 750.00 Fluid Balance 1950.00 Physical Exam Vitals Signs(Last 24 hrs)__ Last Charted Minimum Maximum Temp 36.9(JUNE 17 07:09) 36.9(JUNE 17 07:09) 37.2(JUNE 16 12:37) Heart Rate H 109(JUNE 17 07:09) 86(JUNE 17 02:53) 151(JUNE 16 18:00) SBP 132(JUNE 17 07:09) 83(JUNE 16 17:04) 179(JUNE 16 17:58) DBP 69(JUNE 17 07:09) 51(JUNE 16 16:49) 118(JUNE 16 18:02) Physical Exam General: No acute distress. Alert and Appropriate Skin: No rash. Warm, Dry, Intact HEENT: Head is normocephalic and atraumatic. No lesions. Pupils equal in size. Extraocular movements within normal limits. Nose: No septal deviation. Mouth: Oropharynx mucosa is without lesion. Neck: Supple. No lymphadenopathy or thyromegaly noted. Lungs: Bilaterally clear/diminished breath sounds with no crepitation or wheeze. Unlabored Cardiovascular: Heart is regular rhythm, S1S2, No extra-audible heart tones Abdomen: Abdomen is soft, nontender. Bowel sounds positive all four quadrants. Midline abdominal incision, dry sterile dressing intact. SIMONE drain present. Extremities: No clubbing, cyanosis or edema. No calf tenderness. Adequate peripheral circulation. Neurological: The patient is awake, oriented to time, people and place. Following simple commands, moving all extremities. Weight Dosing Weight: 106.1 kg (06/15/24) Medications Medications (16) Active Scheduled: (5) acetaminophen PMX 1,000 mg 100 mL, IV Piggyback, q6hr heparin 5,000 units/mL (1 mL) vial 5,000 unit(s) 1 mL, Subcutaneous, q8h metoclopramide 10 mg tablet 10 mg 1 tab(s), Oral, TID multivitamin, Multivitamins with Folic Acid 1 mg Tab 1 tab(s), Oral, qDay piperacillin-tazobactam PMX 3.375 gram(s) 70 mL, IV Piggyback, q8hr Continuous: (1) Lactated Ringers 1,000 mL 1,000 mL, Intravenous, 50 mL/hr PRN: (10) acetaminophen 325 mg Tablet 650 mg 2 tab(s), Oral, q4h acetaminophen 325 mg Tablet 650 mg 2 tab(s), Oral, q4h acetaminophen-OXYcodone 325 mg-5 mg Tablet 1 tab(s), Oral, q4h acetaminophen-OXYcodone 325 mg-5 mg Tablet 2 tab(s), Oral, q4h dextrose 50% Solution Disp syringe 50 mL 25 gram(s) 50 mL, IV Push, AsDirected morphine 2 mg/mL 1 mL syringe 2 mg 1 mL, IV Push, q3h morphine 4 mg/mL 1mL INJ 4 mg 1 mL, IV Push, q3h ondansetron 2 mg/ 1 mL 2 mL INJ 4 mg 2 mL, IV Push, q4h ondansetron 2 mg/ 1 mL 2 mL INJ 4 mg 2 mL, IV Push, q4h polyethylene glycol 3350 - UD packet 17 gram(s) 15 mL, Oral, qDay Lab Results 06/17 06:27 WBC: 16.8 H Hgb: 11.1 L Hct: 33.0 L Platelet: 219 Neutrophil %: 91.1 H Glucose Level: 96 Sodium Level: 137 Potassium Level: 3.5 BUN: 6.0 L Creatinine Lvl (s): 0.44 L 06/16 20:59 Glucose Level: 97 Sodium Level: 138 Potassium Level: 3.4 L BUN: <5.0 L Creatinine Lvl (s): 0.45 L 06/16 08:40 WBC: 16.1 H Hgb: 11.5 L Hct: 34.2 Platelet: 193 Neutrophil %: 89.3 H Protime: 15.0 H PT International Ratio: 1.3 EKG No qualifying data available. Assessment/Plan 1. Acute perforated Appendicitis with purulent peritonitis 2. 3. Leukocytosis 4. Hypokalemia 5. Tachycardia Acute perforated appendicitis with purulent peritonitis status post open appendectomy - Postop day 1. Routine postoperative care per primary team -Toradol discontinued. IV Tylenol scheduled. Pain appears to be well-controlled at this time. -Continue IV Zosyn - Patient is currently on clear liquid diet. Continue IV fluids while patient has decreased oral intake. 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 Appreciate input and recommendations. Hypokalemia -Continue monitor electrolytes as needed. Continue replace as needed Tachycardia improving Previous records reviewed Clinisync reviewed CBC/BMP reviewed Level of Care Indication SD monitor (other: specify in note) DVT Prophylaxis Heparin SQ Maintenance IVF Indication Other: specify in note Indwelling Urinary Catheter Indication Other: specify in note plan of espino to be dc today Anticipated Timeline of Discharge 72+ hours Anticipated DC Disposition Home without services Code status Full Code Plan of care discussed in depth with the patient and family at bedside. Patient verbalizes understanding and is agreeable plan of care. Discussed with my collaborating physician Dr. Wisam Spence. This dictation was performed using voice recognition software and may include grammatical and/or spelling errors Orders: acetaminophen(Ofirmev IVPB), 1000 mg= 100 mL, IV Piggyback, q6hr Digitally Signed by ZULY DUGGAN on 06/17/2024 09:39 AM [id number] [facility] Progress note Date of Service 06/17/2024 Chief Complaint Postoperative pain Subjective Patient in bed. Complaining of incisional pain. Denies any nausea or vomiting. No shortnessbreath or chest pain. Tolerating clear liquid diet currently. Objective Vitals and Measurements T: 36.9 C (Oral) TMIN: 36.5 C (Temporal Artery) TMAX: 37.62 C HR: 109 (Monitored) RR: 16 BP: 132/69SpO2: 94% Intake and Output 7AM Yesterday to 7AM Today Intake and Output (Last 24 hours) Intake Administration Information 2500.00 Oral Intake 300.00 Output Surgical Drain, Tube Output: 155.00 Urinary Catheter Output: 575.00 Intra-Op EBL 20.00 Stool Count 0.00 Urine Count 2.00 Total Summary Total Intake 2800.00 Total Output 750.00 Fluid Balance 2050.00 Physical Exam General -alert and oriented x4, answers questions appropriately. In no acute distress. HEENT -normocephalic. Cardiovascular -S1-S2, regular rate and rhythm. Respiratory -easy unlabored respirations. Chest rise symmetrical. Abdomen/GI -soft, obese/rounded, mild incisional tenderness, abdominal incisions are well-approximated nontender, bowel sounds present. Nondistended. Musculoskeletal -CHAMPAGNE x4. Psychiatric -calm and cooperative. Skin -normal for ethnicity. Weight Dosing Weight: 106.1 kg (06/15/24) Medications Medications (16) Active Scheduled: (5) acetaminophen PMX 1,000 mg 100 mL, IV Piggyback, q6hr heparin 5,000 units/mL (1 mL) vial 5,000 unit(s) 1 mL, Subcutaneous, q8h metoclopramide 10 mg tablet 10 mg 1 tab(s), Oral, TID multivitamin, Multivitamins with Folic Acid 1 mg Tab 1 tab(s), Oral, qDay piperacillin-tazobactam PMX 3.375 gram(s) 70 mL, IV Piggyback, q8hr Continuous: (1) Lactated Ringers 1,000 mL 1,000 mL, Intravenous, 50 mL/hr PRN: (10) acetaminophen 325 mg Tablet 650 mg 2 tab(s), Oral, q4h acetaminophen 325 mg Tablet 650 mg 2 tab(s), Oral, q4h acetaminophen-OXYcodone 325 mg-5 mg Tablet 1 tab(s), Oral, q4h acetaminophen-OXYcodone 325 mg-5 mg Tablet 2 tab(s), Oral, q4h dextrose 50% Solution Disp syringe 50 mL 25 gram(s) 50 mL, IV Push, AsDirected morphine 2 mg/mL 1 mL syringe 2 mg 1 mL, IV Push, q3h morphine 4 mg/mL 1mL INJ 4 mg 1 mL, IV Push, q3h ondansetron 2 mg/ 1 mL 2 mL INJ 4 mg 2 mL, IV Push, q4h ondansetron 2 mg/ 1 mL 2 mL INJ 4 mg 2 mL, IV Push, q4h polyethylene glycol 3350 - UD packet 17 gram(s) 15 mL, Oral, qDay Lab Results 06/17 06:27 WBC: 16.8 H Hgb: 11.1 L Hct: 33.0 L Platelet: 219 Neutrophil %: 91.1 H Glucose Level: 96 Sodium Level: 137 Potassium Level: 3.5 BUN: 6.0 L Creatinine Lvl (s): 0.44 L 06/16 20:59 Glucose Level: 97 Sodium Level: 138 Potassium Level: 3.4 L BUN: <5.0 L Creatinine Lvl (s): 0.45 L 06/16 08:40 WBC: 16.1 H Hgb: 11.5 L Hct: 34.2 Platelet: 193 Neutrophil %: 89.3 H Protime: 15.0 H PT International Ratio: 1.3 EKG No qualifying data available. Assessment/Plan Acute perforated Appendicitis with purulent peritonitis Hypokalemia Leukocytosis 19-year-old female who is postoperative day #1 status post open appendectomy secondary to perforated appendicitis with evidence of purulent peritonitis at time of surgery. Also 18 weeks . From a surgical standpoint patient is overall doing well this morning. She is having mild incisional pain. Has yet to be out of bed. Her vital signs remained stable. She has been afebrile. White count this morning noted B16.8 From 16.1 yesterday. Hemoglobin stable. Electrolytes and FRANCISCO reviewed. Plan: -Encourage mobilization and out of bed today. -Incentive spirometer use every hour. -Continue antibiotics via Zosyn as ordered. -Heparin for DVT prophylaxis. -Discontinue Espino catheter and IV fluids. -Anticipate discharge towards end of the week if she continues to do well. Case discussed with Dr. López, see addendum to follow. Digitally Signed by PERLITA TAYLOR on 06/17/2024 09:13 AM [facility] [id number] Gynecology Progress note Date of Service 06/17/24 Subjective POD 1 from Laparoscopic converted open appendectomy. No acute events overnight. Patient endorses pain s/p Laparoscopic converted open appendectomy. Denies Nausea/vomiting/fever/chills/SOB/chest pain.Not currently ambulating. Has yet to eat anything following surgery. Denies vaginal bleeding, cramping. Objective Vitals and Measurements T: 36.9 C (Oral) TMIN: 36.5 C (Temporal Artery) TMAX: 37.62 C HR: 109 (Monitored) RR: 16 BP: 132/69SpO2: 97% Intake and Output 7AM Yesterday to 7AM Today Intake and Output (Last 24 hours) Intake Administration Information 2500.00 Oral Intake 200.00 Output Surgical Drain, Tube Output: 155.00 Urinary Catheter Output: 575.00 Intra-Op EBL 20.00 Stool Count 0.00 Urine Count 2.00 Total Summary Total Intake 2700.00 Total Output 750.00 Fluid Balance 1950.00 Physical Exam GENERAL: NAD NEUROLOGICAL: A&Ox3 HEENT: EOMI, mucus membranes moist CARDIOVASCULAR: regular rate RESPIRATORY: equal rise and fall bilaterally ABDOMEN: soft, gravid, tender. Laparoscopic port sites dressed in gauze. SIMONE drain located RLQ with slight serosanguineous fluid. Low midline vertical incision dressed in gauze. EXREMETIES: No peripheral edema. SCDs in place Weight Dosing Weight: 106.1 kg (06/15/24) Medications Medications (16) Active Scheduled: (5) heparin 5,000 units/mL (1 mL) vial 5,000 unit(s) 1 mL, Subcutaneous, q8h ketorolac 15 mg/mL vial 15 mg 1 mL, IV Push, q6h metoclopramide 10 mg tablet 10 mg 1 tab(s), Oral, TID multivitamin, Multivitamins with Folic Acid 1 mg Tab 1 tab(s), Oral, qDay piperacillin-tazobactam PMX 3.375 gram(s) 70 mL, IV Piggyback, q8hr Continuous: (1) Lactated Ringers 1,000 mL 1,000 mL, Intravenous, 50 mL/hr PRN: (10) acetaminophen 325 mg Tablet 650 mg 2 tab(s), Oral, q4h acetaminophen 325 mg Tablet 650 mg 2 tab(s), Oral, q4h acetaminophen-OXYcodone 325 mg-5 mg Tablet 1 tab(s), Oral, q4h acetaminophen-OXYcodone 325 mg-5 mg Tablet 2 tab(s), Oral, q4h dextrose 50% Solution Disp syringe 50 mL 25 gram(s) 50 mL, IV Push, AsDirected morphine 2 mg/mL 1 mL syringe 2 mg 1 mL, IV Push, q3h morphine 4 mg/mL 1mL INJ 4 mg 1 mL, IV Push, q3h ondansetron 2 mg/ 1 mL 2 mL INJ 4 mg 2 mL, IV Push, q4h ondansetron 2 mg/ 1 mL 2 mL INJ 4 mg 2 mL, IV Push, q4h polyethylene glycol 3350 - UD packet 17 gram(s) 15 mL, Oral, qDay Lab Results 06/17 06:27 WBC: 16.8 H Hgb: 11.1 L Hct: 33.0 L Platelet: 219 Neutrophil %: 91.1 H Glucose Level: 96 Sodium Level: 137 Potassium Level: 3.5 BUN: 6.0 L Creatinine Lvl (s): 0.44 L 06/16 20:59 Glucose Level: 97 Sodium Level: 138 Potassium Level: 3.4 L BUN: <5.0 L Creatinine Lvl (s): 0.45 L 06/16 08:40 WBC: 16.1 H Hgb: 11.5 L Hct: 34.2 Platelet: 193 Neutrophil %: 89.3 H Protime: 15.0 H PT International Ratio: 1.3 Imaging Results and Diagnostics US Pelvis Non-OB Complete Result Date: June 16, 2024 Verified By: ANNAMARIA MAGAÑA MD CLINICAL STATEMENT: IMPRESSION: Normal ovaries with robust blood flow on duplex Doppler. Abnormal appearance of the appendix suggesting acute appendicitis in the appropriate clinical setting. EKG No qualifying data available. Assessment/Plan Code: Full IVF: LR UOP: 750 mL. Espino catheter in place Abx: Zosyn Diet: Clear Liquid Diet PPx: N/A Lines: Peripheral IV Consults: Gen Surg 19 yo at 18w5d, with TUSHAR 11/14/24 by LMP c/w 12wkUS currently admitted for appendicitis. is complicated by Asthma, Tobacco use, obesity, h/o E.coli UTI, Lap converted open Appendectomy >>Perforated Appendicitis w/ purulent peritonitis -VSS except mild tachycardia -POD 1 Laparoscopic converted open appendectomy. Op Note reviewed showed perforated necrotic appendix with pus and stool. -SIMONE drained: 155 -Doptone today: 140. For Doptones qshift. - records obtained and reviewed Dispo: Continue to monitor. For Doptones qshift. Recommend d/c espino catheter. D/w: Dr. Wood Digitally Signed by JAZMYNE WRIGHT MD on 06/17/2024 08:16 AM Digitally Signed by JAZMYNE WRIGHT MD on 06/17/2024 08:37 AM [facility] [id number] [facility] Progress note Date of Service 06/17/2024 Chief Complaint Postoperative pain Subjective Patient in bed. Complaining of incisional pain. Denies any nausea or vomiting. No shortnessbreath or chest pain. Tolerating clear liquid diet currently. Objective Vitals and Measurements T: 36.9 C (Oral) TMIN: 36.5 C (Temporal Artery) TMAX: 37.62 C HR: 109 (Monitored) RR: 16 BP: 132/69SpO2: 94% Intake and Output 7AM Yesterday to 7AM Today Intake and Output (Last 24 hours) Intake Administration Information 2500.00 Oral Intake 300.00 Output Surgical Drain, Tube Output: 155.00 Urinary Catheter Output: 575.00 Intra-Op EBL 20.00 Stool Count 0.00 Urine Count 2.00 Total Summary Total Intake 2800.00 Total Output 750.00 Fluid Balance 2050.00 Physical Exam General -alert and oriented x4, answers questions appropriately. In no acute distress. HEENT -normocephalic. Cardiovascular -S1-S2, regular rate and rhythm. Respiratory -easy unlabored respirations. Chest rise symmetrical. Abdomen/GI -soft, obese/rounded, mild incisional tenderness, abdominal incisions are well-approximated nontender, bowel sounds present. Nondistended. Musculoskeletal -CHAMPAGNE x4. Psychiatric -calm and cooperative. Skin -normal for ethnicity. Weight Dosing Weight: 106.1 kg (06/15/24) Medications Medications (16) Active Scheduled: (5) acetaminophen PMX 1,000 mg 100 mL, IV Piggyback, q6hr heparin 5,000 units/mL (1 mL) vial 5,000 unit(s) 1 mL, Subcutaneous, q8h metoclopramide 10 mg tablet 10 mg 1 tab(s), Oral, TID multivitamin, Multivitamins with Folic Acid 1 mg Tab 1 tab(s), Oral, qDay piperacillin-tazobactam PMX 3.375 gram(s) 70 mL, IV Piggyback, q8hr Continuous: (1) Lactated Ringers 1,000 mL 1,000 mL, Intravenous, 50 mL/hr PRN: (10) acetaminophen 325 mg Tablet 650 mg 2 tab(s), Oral, q4h acetaminophen 325 mg Tablet 650 mg 2 tab(s), Oral, q4h acetaminophen-OXYcodone 325 mg-5 mg Tablet 1 tab(s), Oral, q4h acetaminophen-OXYcodone 325 mg-5 mg Tablet 2 tab(s), Oral, q4h dextrose 50% Solution Disp syringe 50 mL 25 gram(s) 50 mL, IV Push, AsDirected morphine 2 mg/mL 1 mL syringe 2 mg 1 mL, IV Push, q3h morphine 4 mg/mL 1mL INJ 4 mg 1 mL, IV Push, q3h ondansetron 2 mg/ 1 mL 2 mL INJ 4 mg 2 mL, IV Push, q4h ondansetron 2 mg/ 1 mL 2 mL INJ 4 mg 2 mL, IV Push, q4h polyethylene glycol 3350 - UD packet 17 gram(s) 15 mL, Oral, qDay Lab Results 06/17 06:27 WBC: 16.8 H Hgb: 11.1 L Hct: 33.0 L Platelet: 219 Neutrophil %: 91.1 H Glucose Level: 96 Sodium Level: 137 Potassium Level: 3.5 BUN: 6.0 L Creatinine Lvl (s): 0.44 L 05/05 20:59 Glucose Level: 97 Sodium Level: 138 Potassium Level: 3.4 L BUN: <5.0 L Creatinine Lvl (s): 0.45 L 06/16 08:40 WBC: 16.1 H Hgb: 11.5 L Hct: 34.2 Platelet: 193 Neutrophil %: 89.3 H Protime: 15.0 H PT International Ratio: 1.3 EKG No qualifying data available. Assessment/Plan Acute perforated Appendicitis with purulent peritonitis Hypokalemia Leukocytosis 19-year-old female who is postoperative day #1 status post open appendectomy secondary to perforated appendicitis with evidence of purulent peritonitis at time of surgery. Also 18 weeks . From a surgical standpoint patient is overall doing well this morning. She is having mild incisional pain. Has yet to be out of bed. Her vital signs remained stable. She has been afebrile. White count this morning noted B16.8 From 16.1 yesterday. Hemoglobin stable. Electrolytes and FRANCISCO reviewed. Plan: -Encourage mobilization and out of bed today. -Incentive spirometer use every hour. -Continue antibiotics via Zosyn as ordered. -Heparin for DVT prophylaxis. -Discontinue Espino catheter and IV fluids. -Anticipate discharge towards end of the week if she continues to do well. Case discussed with Dr. López, see addendum to follow. Digitally Signed by PERLITA TAYLOR on 06/17/2024 09:13 AM [facility] [id number] Maternal and medicine Consult note I was asked to see patient by the hospitalist service but by the time I was available the patient had already been placed in surgery. Surgery resulted in an open laparotomy for ruptured appendix. Operative note was reviewed. The patient is a 19-year-old 1 para 0 now at 18 weeks 4 days with the TUSHAR established of 11/14/2024. The patient was receiving care at [facility]. labs were retrieved and were unremarkable note that she recently was and her records are under the last name Mathew.. Her dating ultrasound in the first trimester was retrieved which was consistent with the TUSHAR above. The patient's was complicated by E. coli UTI. She had presented on 11/13/2024 to [facility] where cystitis was diagnosed. She then represented on 11/15/2024 and was admitted apparently to the hospitalist service. Consultation with OB was carried out and Dr. Anne felt the patient likely had appendicitis and transferred her to [place]. Ultrasound showed evidence of appendicitis and the patient was taken to the OR yesterday where a ruptured appendix was found. The patient has a SIMONE drain in. Just prior to going to the OR OB ultrasound was carried out and the fetus had normal appearance although several structures could not be adequately visualized due to position, maternal discomfort and gestational age. Pelvic exam done earlier by the BLOW UP OPERATOR team showed a long closed cervix. For the past several days the patient has been on Rocephin for presumed cystitis. Postoperatively she has been on Zosyn. The patient appears to be alert and oriented. She states she is receiving adequate pain relief. Shedenies vaginal bleeding, vaginal leaking, cramping or pelvic pressure. Labs this morning show WBC of 16.8 hemoglobin of 11.1. Platelets 219,000. BMP was unremarkable for . Potassium was 3.5 after potassium supplementation. Last evening, AST and ALT were normal. Patient seen with the BLOW UP OPERATOR team this morning and resident exam confirmed. heart tones were obtained were approximately 140. Assessment/recommendations. 1. Well dated intrauterine at 18 weeks 4 days status post laparotomy for ruptured appendix. 2. Prior to the OR the patient had received several days of Rocephin. She is currently on Zosyn andboth antibiotics are appropriate in . In the vast majority of cases antibiotic usage does not need to be modified for alone. I would avoid fluoroquinolones but nearly all cephalosporins and penicillins can be used. Vancomycin can be used if needed. 3. The patient is now at increased risk of labor but shows no signs thereof. Patient is at increased risk of later chorioamnionitis and in theory this is due to seeding of the uterus with thebacteria causing peritonitis. 4. In general we like to avoid nonsteroidal anti-inflammatory agents such as Toradol and ibuprofen.First trimester exposure is associated with an increased risk of miscarriage and third trimester exposure can lead to premature closure of the ductus. If needed, nonsteroidals can be used judiciouslybut should be minimized. Acetaminophen can be used in usual doses. Narcotics can be judiciously used in usual doses. 5. After discharge the patient will need follow-up ultrasound to complete anatomy evaluation. I would also recommend that growth be followed by serial ultrasounds in the third trimester. 6. Route and timing of delivery per usual obstetric indications. 7. After antibiotics are concluded, follow-up urine culture is recommended. MFM service will follow along with BLOW UP OPERATOR service. Digitally Signed by ELIZABETH EL MD on 06/17/2024 09:03 AM [facility] [id number] Note Date of Service 06/17/24 Chief Complaint Abdominal pain Subjective Patient is a 19 year old female with no significant past medical history, patient is currently 18 weeks . Patient presented to [facility] the emergency department on June 14, 2024 with complaints of nausea, vomiting and right lower quadrant abdominal pain beginning 3 days prior. In the emergency department patient was thought to have a urinary tract infection Of note patient originally presented to [place] emergency department on 06/13/24 with complaints of generalized not feeling well, chills, lightheadedness, frequent urination. Patient was diagnosed withurinary tract infection and discharged with nitrofurantoin urine culture obtained at [facility] showing 50,000-80,000 Presumptive E. coli: Pansensitive. Patient was also evaluated at an urgent care on June 14, 2024. Patient was diagnosed with hyperemesis gravidarum. Patient then returned to [facility] emergency department on June 15, 2024. Patient was placed on IV ceftriaxone and admitted to [facility] for further evaluation management. Patient was evaluated by [facility] and there were concerns for acute appendicitis. It was recommended patient undergo MRI. MRI was not available at [facility] and patient was transferred to [facility] under hospitalist service with [facility] and general surgery consultation. Abdominal ultrasound revealed acute appendicitis. On June 16, 2024 patient went to the operating room with Dr. Michael López for acute perforated appendicitis with purulent peritonitis. Laparoscopic was converted to open appendectomy. Patient resting in bed, family x2 at bedside (one family member sleeping throughout the exam). Patient states she is feeling better. She denies any nausea, vomiting or abdominal pain. Patient states she was able to tolerate apple juice without difficulty. She denies shortness of breath and chest pain Objective Vitals and Measurements T: 36.9 C (Oral) TMIN: 36.5 C (Temporal Artery) TMAX: 37.62 C HR: 109 (Monitored) RR: 16 BP: 132/69SpO2: 97% Intake and Output 7AM Yesterday to 7AM Today Intake and Output (Last 24 hours) Intake Administration Information 2500.00 Oral Intake 200.00 Output Surgical Drain, Tube Output: 155.00 Urinary Catheter Output: 575.00 Intra-Op EBL 20.00 Stool Count 0.00 Urine Count 2.00 Total Summary Total Intake 2700.00 Total Output 750.00 Fluid Balance 1950.00 Physical Exam Vitals Signs(Last 24 hrs)__ Last Charted Minimum Maximum Temp 36.9(JUNE 17 07:09) 36.9(JUNE 17 07:09) 37.2(JUNE 16 12:37) Heart Rate H 109(JUNE 17 07:09) 86(JUNE 17 02:53) 151(JUNE 16 18:00) SBP 132(JUNE 17 07:09) 83(JUNE 16 17:04) 179(JUNE 16 17:58) DBP 69(JUNE 17 07:09) 51(JUNE 16 16:49) 118(JUNE 16 18:02) Physical Exam General: No acute distress. Alert and Appropriate Skin: No rash. Warm, Dry, Intact HEENT: Head is normocephalic and atraumatic. No lesions. Pupils equal in size. Extraocular movements within normal limits. Nose: No septal deviation. Mouth: Oropharynx mucosa is without lesion. Neck: Supple. No lymphadenopathy or thyromegaly noted. Lungs: Bilaterally clear/diminished breath sounds with no crepitation or wheeze. Unlabored Cardiovascular: Heart is regular rhythm, S1S2, No extra-audible heart tones Abdomen: Abdomen is soft, nontender. Bowel sounds positive all four quadrants. Midline abdominal incision, dry sterile dressing intact. SIMONE drain present. Extremities: No clubbing, cyanosis or edema. No calf tenderness. Adequate peripheral circulation. Neurological: The patient is awake, oriented to time, people and place. Following simple commands, moving all extremities. Weight Dosing Weight: 106.1 kg (06/15/24) Medications Medications (16) Active Scheduled: (5) acetaminophen PMX 1,000 mg 100 mL, IV Piggyback, q6hr heparin 5,000 units/mL (1 mL) vial 5,000 unit(s) 1 mL, Subcutaneous, q8h metoclopramide 10 mg tablet 10 mg 1 tab(s), Oral, TID multivitamin, Multivitamins with Folic Acid 1 mg Tab 1 tab(s), Oral, qDay piperacillin-tazobactam PMX 3.375 gram(s) 70 mL, IV Piggyback, q8hr Continuous: (1) Lactated Ringers 1,000 mL 1,000 mL, Intravenous, 50 mL/hr PRN: (10) acetaminophen 325 mg Tablet 650 mg 2 tab(s), Oral, q4h acetaminophen 325 mg Tablet 650 mg 2 tab(s), Oral, q4h acetaminophen-OXYcodone 325 mg-5 mg Tablet 1 tab(s), Oral, q4h acetaminophen-OXYcodone 325 mg-5 mg Tablet 2 tab(s), Oral, q4h dextrose 50% Solution Disp syringe 50 mL 25 gram(s) 50 mL, IV Push, AsDirected morphine 2 mg/mL 1 mL syringe 2 mg 1 mL, IV Push, q3h morphine 4 mg/mL 1mL INJ 4 mg 1 mL, IV Push, q3h ondansetron 2 mg/ 1 mL 2 mL INJ 4 mg 2 mL, IV Push, q4h ondansetron 2 mg/ 1 mL 2 mL INJ 4 mg 2 mL, IV Push, q4h polyethylene glycol 3350 - UD packet 17 gram(s) 15 mL, Oral, qDay Lab Results 06/17 06:27 WBC: 16.8 H Hgb: 11.1 L Hct: 33.0 L Platelet: 219 Neutrophil %: 91.1 H Glucose Level: 96 Sodium Level: 137 Potassium Level: 3.5 BUN: 6.0 L Creatinine Lvl (s): 0.44 L 06/16 20:59 Glucose Level: 97 Sodium Level: 138 Potassium Level: 3.4 L BUN: <5.0 L Creatinine Lvl (s): 0.45 L 06/16 08:40 WBC: 16.1 H Hgb: 11.5 L Hct: 34.2 Platelet: 193 Neutrophil %: 89.3 H Protime: 15.0 H PT International Ratio: 1.3 EKG No qualifying data available. Assessment/Plan 1. Acute perforated Appendicitis with purulent peritonitis 2. 3. Leukocytosis 4. Hypokalemia 5. Tachycardia Acute perforated appendicitis with purulent peritonitis status post open appendectomy - Postop day 1. Routine postoperative care per primary team -Toradol discontinued. IV Tylenol scheduled. Pain appears to be well-controlled at this time. -Continue IV Zosyn - Patient is currently on clear liquid diet. Continue IV fluids while patient has decreased oral intake. 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 Appreciate input and recommendations. Hypokalemia -Continue monitor electrolytes as needed. Continue replace as needed Tachycardia improving Previous records reviewed Clinisync reviewed CBC/BMP reviewed Level of Care Indication SD monitor (other: specify in note) DVT Prophylaxis Heparin SQ Maintenance IVF Indication Other: specify in note Indwelling Urinary Catheter Indication Other: specify in note plan of espino to be dc today Anticipated Timeline of Discharge 72+ hours Anticipated DC Disposition Home without services Code status Full Code Plan of care discussed in depth with the patient and family at bedside. Patient verbalizes understanding and is agreeable plan of care. Discussed with my collaborating physician Dr. Wisam Spence. This dictation was performed using voice recognition software and may include grammatical and/or spelling errors Orders: acetaminophen(Ofirmev IVPB), 1000 mg= 100 mL, IV Piggyback, q6hr Digitally Signed by ZULY DUGGAN on 06/17/2024 09:39 AM [id number] Gynecology Progress note Date of Service 06/17/24 Subjective POD 1 from Laparoscopic converted open appendectomy. No acute events overnight. Patient endorses pain s/p Laparoscopic converted open appendectomy. Denies Nausea/vomiting/fever/chills/SOB/chest pain.Not currently ambulating. Has yet to eat anything following surgery. Denies vaginal bleeding, cramping. Objective Vitals and Measurements T: 36.9 C (Oral) TMIN: 36.5 C (Temporal Artery) TMAX: 37.62 C HR: 109 (Monitored) RR: 16 BP: 132/69SpO2: 97% Intake and Output 7AM Yesterday to 7AM Today Intake and Output (Last 24 hours) Intake Administration Information 2500.00 Oral Intake 200.00 Output Surgical Drain, Tube Output: 155.00 Urinary Catheter Output: 575.00 Intra-Op EBL 20.00 Stool Count 0.00 Urine Count 2.00 Total Summary Total Intake 2700.00 Total Output 750.00 Fluid Balance 1950.00 Physical Exam GENERAL: NAD NEUROLOGICAL: A&Ox3 HEENT: EOMI, mucus membranes moist CARDIOVASCULAR: regular rate RESPIRATORY: equal rise and fall bilaterally ABDOMEN: soft, gravid, tender. Laparoscopic port sites dressed in gauze. SIMONE drain located RLQ with slight serosanguineous fluid. Low midline vertical incision dressed in gauze. EXREMETIES: No peripheral edema. SCDs in place Weight Dosing Weight: 106.1 kg (06/15/24) Medications Medications (16) Active Scheduled: (5) heparin 5,000 units/mL (1 mL) vial 5,000 unit(s) 1 mL, Subcutaneous, q8h ketorolac 15 mg/mL vial 15 mg 1 mL, IV Push, q6h metoclopramide 10 mg tablet 10 mg 1 tab(s), Oral, TID multivitamin, Multivitamins with Folic Acid 1 mg Tab 1 tab(s), Oral, qDay piperacillin-tazobactam PMX 3.375 gram(s) 70 mL, IV Piggyback, q8hr Continuous: (1) Lactated Ringers 1,000 mL 1,000 mL, Intravenous, 50 mL/hr PRN: (10) acetaminophen 325 mg Tablet 650 mg 2 tab(s), Oral, q4h acetaminophen 325 mg Tablet 650 mg 2 tab(s), Oral, q4h acetaminophen-OXYcodone 325 mg-5 mg Tablet 1 tab(s), Oral, q4h acetaminophen-OXYcodone 325 mg-5 mg Tablet 2 tab(s), Oral, q4h dextrose 50% Solution Disp syringe 50 mL 25 gram(s) 50 mL, IV Push, AsDirected morphine 2 mg/mL 1 mL syringe 2 mg 1 mL, IV Push, q3h morphine 4 mg/mL 1mL INJ 4 mg 1 mL, IV Push, q3h ondansetron 2 mg/ 1 mL 2 mL INJ 4 mg 2 mL, IV Push, q4h ondansetron 2 mg/ 1 mL 2 mL INJ 4 mg 2 mL, IV Push, q4h polyethylene glycol 3350 - UD packet 17 gram(s) 15 mL, Oral, qDay Lab Results 06/17 06:27 WBC: 16.8 H Hgb: 11.1 L Hct: 33.0 L Platelet: 219 Neutrophil %: 91.1 H Glucose Level: 96 Sodium Level: 137 Potassium Level: 3.5 BUN: 6.0 L Creatinine Lvl (s): 0.44 L 06/16 20:59 Glucose Level: 97 Sodium Level: 138 Potassium Level: 3.4 L BUN: <5.0 L Creatinine Lvl (s): 0.45 L 06/16 08:40 WBC: 16.1 H Hgb: 11.5 L Hct: 34.2 Platelet: 193 Neutrophil %: 89.3 H Protime: 15.0 H PT International Ratio: 1.3 Imaging Results and Diagnostics US Pelvis Non-OB Complete Result Date: June 16, 2024 Verified By: ANNAMARIA MAGAÑA MD CLINICAL STATEMENT: IMPRESSION: Normal ovaries with robust blood flow on duplex Doppler. Abnormal appearance of the appendix suggesting acute appendicitis in the appropriate clinical setting. EKG No qualifying data available. Assessment/Plan Code: Full IVF: LR UOP: 750 mL. Espino catheter in place Abx: Zosyn Diet: Clear Liquid Diet PPx: N/A Lines: Peripheral IV Consults: Gen Surg 19 yo at 18w5d, with TUSHAR 11/14/24 by LMP c/w 12wkUS currently admitted for appendicitis. is complicated by Asthma, Tobacco use, obesity, h/o E.coli UTI, Lap converted open Appendectomy >>Perforated Appendicitis w/ purulent peritonitis -VSS except mild tachycardia -POD 1 Laparoscopic converted open appendectomy. Op Note reviewed showed perforated necrotic appendix with pus and stool. -SIMONE drained: 155 -Doptone today: 140. For Doptones qshift. - records obtained and reviewed Dispo: Continue to monitor. For Doptones qshift. Recommend d/c espino catheter. D/w: Dr. Wood Digitally Signed by JAZMYNE WRIGHT MD on 06/17/2024 08:16 AM Digitally Signed by JAZMYNE WRIGHT MD on 06/17/2024 08:37 AM [facility] [id number] Gynecology Progress note Date of Service 06/17/24 Subjective POD 1 from Laparoscopic converted open appendectomy. No acute events overnight. Patient endorses pain s/p Laparoscopic converted open appendectomy. Denies Nausea/vomiting/fever/chills/SOB/chest pain.Not currently ambulating. Has yet to eat anything following surgery. Denies vaginal bleeding, cramping. Objective Vitals and Measurements T: 36.9 C (Oral) TMIN: 36.5 C (Temporal Artery) TMAX: 37.62 C HR: 109 (Monitored) RR: 16 BP: 132/69SpO2: 97% Intake and Output 7AM Yesterday to 7AM Today Intake and Output (Last 24 hours) Intake Administration Information 2500.00 Oral Intake 200.00 Output Surgical Drain, Tube Output: 155.00 Urinary Catheter Output: 575.00 Intra-Op EBL 20.00 Stool Count 0.00 Urine Count 2.00 Total Summary Total Intake 2700.00 Total Output 750.00 Fluid Balance 1950.00 Physical Exam GENERAL: NAD NEUROLOGICAL: A&Ox3 HEENT: EOMI, mucus membranes moist CARDIOVASCULAR: regular rate RESPIRATORY: equal rise and fall bilaterally ABDOMEN: soft, gravid, tender. Laparoscopic port sites dressed in gauze. SIMONE drain located RLQ withslight serosanguineous fluid. Low midline vertical incision dressed in gauze. EXREMETIES: No peripheral edema. SCDs in place Weight Dosing Weight: 106.1 kg (06/15/24) Medications Medications (16) Active Scheduled: (5) heparin 5,000 units/mL (1 mL) vial 5,000 unit(s) 1 mL, Subcutaneous, q8h ketorolac 15 mg/mL vial 15 mg 1 mL, IV Push, q6h metoclopramide 10 mg tablet 10 mg 1 tab(s), Oral, TID multivitamin, Multivitamins with Folic Acid 1 mg Tab 1 tab(s), Oral, qDay piperacillin-tazobactam PMX 3.375 gram(s) 70 mL, IV Piggyback, q8hr Continuous: (1) Lactated Ringers 1,000 mL 1,000 mL, Intravenous, 50 mL/hr PRN: (10) acetaminophen 325 mg Tablet 650 mg 2 tab(s), Oral, q4h acetaminophen 325 mg Tablet 650 mg 2 tab(s), Oral, q4h acetaminophen-OXYcodone 325 mg-5 mg Tablet 1 tab(s), Oral, q4h acetaminophen-OXYcodone 325 mg-5 mg Tablet 2 tab(s), Oral, q4h dextrose 50% Solution Disp syringe 50 mL 25 gram(s) 50 mL, IV Push, AsDirected morphine 2 mg/mL 1 mL syringe 2 mg 1 mL, IV Push, q3h morphine 4 mg/mL 1mL INJ 4 mg 1 mL, IV Push, q3h ondansetron 2 mg/ 1 mL 2 mL INJ 4 mg 2 mL, IV Push, q4h ondansetron 2 mg/ 1 mL 2 mL INJ 4 mg 2 mL, IV Push, q4h polyethylene glycol 3350 - UD packet 17 gram(s) 15 mL, Oral, qDay Lab Results 06/17 06:27 WBC: 16.8 H Hgb: 11.1 L Hct: 33.0 L Platelet: 219 Neutrophil %: 91.1 H Glucose Level: 96 Sodium Level: 137 Potassium Level: 3.5 BUN: 6.0 L Creatinine Lvl (s): 0.44 L 06/16 20:59 Glucose Level: 97 Sodium Level: 138 Potassium Level: 3.4 L BUN: <5.0 L Creatinine Lvl (s): 0.45 L 06/16 08:40 WBC: 16.1 H Hgb: 11.5 L Hct: 34.2 Platelet: 193 Neutrophil %: 89.3 H Protime: 15.0 H PT International Ratio: 1.3 Imaging Results and Diagnostics US Pelvis Non-OB Complete Result Date: June 16, 2024 Verified By: ANNAMARIA MAGAÑA MD CLINICAL STATEMENT: IMPRESSION: Normal ovaries with robust blood flow on duplex Doppler. Abnormal appearance of the appendix suggesting acute appendicitis in the appropriate clinical setting. EKG No qualifying data available. Assessment/Plan Code: Full IVF: LR UOP: 750 mL. Espino catheter in place Abx: Zosyn Diet: Clear Liquid Diet PPx: N/A Lines: Peripheral IV Consults: Gen Surg 19 yo at 18w5d, with TUSHAR 11/14/24 by LMP c/w 12wkUS currently admitted for appendicitis. is complicated by Asthma, Tobacco use, obesity, h/o E.coli UTI, Lap converted open Appendectomy >>Perforated Appendicitis w/ purulent peritonitis -VSS except mild tachycardia -POD 1 Laparoscopic converted open appendectomy. Op Note reviewed showed perforated necrotic appendix with pus and stool. -SIMONE drained: 155 -Doptone today: 140. For Doptones qshift. - records obtained and reviewed Dispo: Continue to monitor. For Doptones qshift. Recommend d/c espino catheter. D/w: Dr. Wood Digitally Signed by JAZMYNE WRIGHT MD on 06/17/2024 08:16 AM Digitally Signed by JAZMYNE WRIGHT MD on 06/17/2024 08:37 AM [facility] [id number] Anesthesiology Consult note Patient: KIM NGUYEN Age: 19 years Sex: Female : 2005 Associated Diagnoses: None Author: LIVIA GUTIERREZ MD Postoperative Information Post Operative Info: Post op day: POD0. Patient location: PACU. Assessment Postanesthesia assessment Vitals: Vital signs from flowsheet : Vital Signs 06/16/2024 19:26 EDT Heart Rate Monitored 102 bpm HI Respiratory Rate 20 br/min Systolic Blood Pressure Non-Invasive 135 mmHg Diastolic Blood Pressure Non-Invasive 72 mmHg Mean Arterial Pressure (NBP) 90 mmHg 06/16/2024 19:12 EDT Temperature Temporal Artery 36.5 DegC Heart Rate Monitored 108 bpm HI Respiratory Rate 18 br/min Systolic Blood Pressure Non-Invasive 137 mmHg Diastolic Blood Pressure Non-Invasive 65 mmHg Mean Arterial Pressure (NBP) 85 mmHg 06/16/2024 18:57 EDT Heart Rate Monitored 103 bpm HI Respiratory Rate 18 br/min Systolic Blood Pressure Non-Invasive 141 mmHg HI Diastolic Blood Pressure Non-Invasive 64 mmHg Mean Arterial Pressure (NBP) 86 mmHg 06/16/2024 18:42 EDT Heart Rate Monitored 117 bpm HI Respiratory Rate 18 br/min Systolic Blood Pressure Non-Invasive 138 mmHg Diastolic Blood Pressure Non-Invasive 68 mmHg Mean Arterial Pressure (NBP) 87 mmHg 06/16/2024 18:27 EDT Heart Rate Monitored 116 bpm HI Respiratory Rate 16 br/min Systolic Blood Pressure Non-Invasive 146 mmHg HI Diastolic Blood Pressure Non-Invasive 75 mmHg Mean Arterial Pressure (NBP) 93 mmHg 06/16/2024 18:12 EDT Temperature Temporal Artery 37.4 DegC Heart Rate Monitored 124 bpm HI Respiratory Rate 16 br/min Systolic Blood Pressure Non-Invasive 139 mmHg Diastolic Blood Pressure Non-Invasive 67 mmHg Mean Arterial Pressure (NBP) 87 mmHg 06/16/2024 18:05 EDT Heart Rate Monitored 146 bpm bpm Respiratory Rate - Anes br/min br/min 06/16/2024 18:04 EDT Systolic Blood Pressure Non-Invasive 132 mmHg mmHg Diastolic Blood Pressure Non-Invasive 104 mmHg mmHg 06/16/2024 18:02 EDT Systolic Blood Pressure Non-Invasive 134 mmHg mmHg Diastolic Blood Pressure Non-Invasive 118 mmHg mmHg 06/16/2024 18:00 EDT Heart Rate Monitored 151 bpm bpm Respiratory Rate - Anes 12 br/min br/min 06/16/2024 17:58 EDT Systolic Blood Pressure Non-Invasive 179 mmHg mmHg Diastolic Blood Pressure Non-Invasive 106 mmHg mmHg 06/16/2024 17:55 EDT Temperature (Route Not Specified) 37.52 DegC DegC Heart Rate Monitored 119 bpm bpm Respiratory Rate - Anes 15 br/min br/min Systolic Blood Pressure Non-Invasive 131 mmHg mmHg Diastolic Blood Pressure Non-Invasive 83 mmHg mmHg 06/16/2024 17:53 EDT Systolic Blood Pressure Non-Invasive 128 mmHg mmHg Diastolic Blood Pressure Non-Invasive 81 mmHg mmHg 06/16/2024 17:50 EDT Temperature (Route Not Specified) 37.54 DegC DegC Heart Rate Monitored 119 bpm bpm Respiratory Rate - Anes 14 br/min br/min 06/16/2024 17:49 EDT Systolic Blood Pressure Non-Invasive 123 mmHg mmHg Diastolic Blood Pressure Non-Invasive 56 mmHg mmHg 06/16/2024 17:46 EDT Systolic Blood Pressure Non-Invasive 104 mmHg mmHg Diastolic Blood Pressure Non-Invasive 77 mmHg mmHg 06/16/2024 17:45 EDT Temperature (Route Not Specified) 37.56 DegC DegC Heart Rate Monitored 101 bpm bpm Respiratory Rate - Anes 14 br/min br/min 06/16/2024 17:43 EDT Systolic Blood Pressure Non-Invasive 95 mmHg mmHg Diastolic Blood Pressure Non-Invasive 83 mmHg mmHg 06/16/2024 17:40 EDT Temperature (Route Not Specified) 37.55 DegC DegC Heart Rate Monitored 108 bpm bpm Respiratory Rate - Anes 14 br/min br/min Systolic Blood Pressure Non-Invasive 100 mmHg mmHg Diastolic Blood Pressure Non-Invasive 57 mmHg mmHg 06/16/2024 17:38 EDT Systolic Blood Pressure Non-Invasive 107 mmHg mmHg Diastolic Blood Pressure Non-Invasive 64 mmHg mmHg 06/16/2024 17:35 EDT Temperature (Route Not Specified) 37.53 DegC DegC Heart Rate Monitored 106 bpm bpm Respiratory Rate - Anes 14 br/min br/min 06/16/2024 17:34 EDT Systolic Blood Pressure Non-Invasive 119 mmHg mmHg Diastolic Blood Pressure Non-Invasive 92 mmHg mmHg 06/16/2024 17:31 EDT Systolic Blood Pressure Non-Invasive 97 mmHg mmHg Diastolic Blood Pressure Non-Invasive 67 mmHg mmHg 06/16/2024 17:30 EDT Temperature (Route Not Specified) 37.54 DegC DegC Heart Rate Monitored 109 bpm bpm Respiratory Rate - Anes 27 br/min br/min 06/16/2024 17:28 EDT Systolic Blood Pressure Non-Invasive 109 mmHg mmHg Diastolic Blood Pressure Non-Invasive 69 mmHg mmHg 06/16/2024 17:25 EDT Temperature (Route Not Specified) 37.53 DegC DegC Heart Rate Monitored 102 bpm bpm Respiratory Rate - Anes 14 br/min br/min Systolic Blood Pressure Non-Invasive 106 mmHg mmHg Diastolic Blood Pressure Non-Invasive 61 mmHg mmHg 06/16/2024 17:23 EDT Systolic Blood Pressure Non-Invasive 105 mmHg mmHg Diastolic Blood Pressure Non-Invasive 60 mmHg mmHg 06/16/2024 17:20 EDT Temperature (Route Not Specified) 37.62 DegC DegC Heart Rate Monitored 115 bpm bpm Respiratory Rate - Anes 14 br/min br/min 06/16/2024 17:19 EDT Systolic Blood Pressure Non-Invasive 124 mmHg mmHg Diastolic Blood Pressure Non-Invasive 65 mmHg mmHg 06/16/2024 17:16 EDT Systolic Blood Pressure Non-Invasive 115 mmHg mmHg Diastolic Blood Pressure Non-Invasive 66 mmHg mmHg 06/16/2024 17:15 EDT Temperature (Route Not Specified) 37.61 DegC DegC Heart Rate Monitored 107 bpm bpm Respiratory Rate - Anes 10 br/min br/min 06/16/2024 17:13 EDT Systolic Blood Pressure Non-Invasive 112 mmHg mmHg Diastolic Blood Pressure Non-Invasive 64 mmHg mmHg 06/16/2024 17:10 EDT Temperature (Route Not Specified) 37.6 DegC DegC Heart Rate Monitored 106 bpm bpm Respiratory Rate - Anes 10 br/min br/min Systolic Blood Pressure Non-Invasive 116 mmHg mmHg Diastolic Blood Pressure Non-Invasive 61 mmHg mmHg 06/16/2024 17:07 EDT Systolic Blood Pressure Non-Invasive 101 mmHg mmHg Diastolic Blood Pressure Non-Invasive 63 mmHg mmHg 06/16/2024 17:05 EDT Temperature (Route Not Specified) 37.57 DegC DegC Heart Rate Monitored 104 bpm bpm Respiratory Rate - Anes 10 br/min br/min 06/16/2024 17:04 EDT Systolic Blood Pressure Non-Invasive 83 mmHg mmHg Diastolic Blood Pressure Non-Invasive 69 mmHg mmHg 06/16/2024 17:02 EDT Systolic Blood Pressure Non-Invasive 116 mmHg mmHg Diastolic Blood Pressure Non-Invasive 56 mmHg mmHg 06/16/2024 17:00 EDT Temperature (Route Not Specified) 37.46 DegC DegC Heart Rate Monitored 107 bpm bpm Respiratory Rate - Anes 13 br/min br/min 06/16/2024 16:59 EDT Systolic Blood Pressure Non-Invasive 99 mmHg mmHg Diastolic Blood Pressure Non-Invasive 70 mmHg mmHg 06/16/2024 16:55 EDT Temperature (Route Not Specified) 37.52 DegC DegC Heart Rate Monitored 105 bpm bpm Respiratory Rate - Anes 21 br/min br/min Systolic Blood Pressure Non-Invasive 104 mmHg mmHg Diastolic Blood Pressure Non-Invasive 61 mmHg mmHg 06/16/2024 16:52 EDT Systolic Blood Pressure Non-Invasive 102 mmHg mmHg Diastolic Blood Pressure Non-Invasive 70 mmHg mmHg 06/16/2024 16:50 EDT Heart Rate Monitored 108 bpm bpm Respiratory Rate - Anes 10 br/min br/min 06/16/2024 16:49 EDT Systolic Blood Pressure Non-Invasive 91 mmHg mmHg Diastolic Blood Pressure Non-Invasive 51 mmHg mmHg 06/16/2024 16:46 EDT Systolic Blood Pressure Non-Invasive 106 mmHg mmHg Diastolic Blood Pressure Non-Invasive 69 mmHg mmHg 06/16/2024 16:45 EDT Heart Rate Monitored 119 bpm bpm Respiratory Rate - Anes 0 br/min br/min 06/16/2024 16:43 EDT Systolic Blood Pressure Non-Invasive 127 mmHg mmHg Diastolic Blood Pressure Non-Invasive 76 mmHg mmHg 06/16/2024 16:40 EDT Respiratory Rate - Anes 0 br/min br/min Systolic Blood Pressure Non-Invasive 119 mmHg mmHg Diastolic Blood Pressure Non-Invasive 88 mmHg mmHg 06/16/2024 16:35 EDT Respiratory Rate - Anes 0 br/min br/min (In Error) 06/16/2024 12:37 EDT Temperature Oral 37.2 DegC Peripheral Pulse Rate 130 bpm >HHI Respiratory Rate 18 br/min Systolic Blood Pressure Non-Invasive 143 mmHg HI Diastolic Blood Pressure Non-Invasive 81 mmHg Blood Pressure Method Automatic Blood Pressure Location Right arm Blood Pressure Cuff Size Medium 06/16/2024 8:45 EDT Temperature Oral 37.1 DegC Heart Rate Monitored 125 bpm HI Respiratory Rate 19 br/min Systolic Blood Pressure Non-Invasive 134 mmHg Diastolic Blood Pressure Non-Invasive 79 mmHg Mean Arterial Pressure (NBP) 95 mmHg Reason For Taking VItal Signs Routine 06/16/2024 3:23 EDT Temperature Oral 37.4 DegC HI Heart Rate Monitored 121 bpm HI Respiratory Rate 18 br/min Systolic Blood Pressure Non-Invasive 112 mmHg Diastolic Blood Pressure Non-Invasive 57 mmHg LOW Blood Pressure Method Automatic Reason For Taking VItal Signs Routine 06/15/2024 23:13 EDT Temperature Oral 36.9 DegC Peripheral Pulse Rate 131 bpm >HHI Respiratory Rate 18 br/min Systolic Blood Pressure Non-Invasive 102 mmHg Diastolic Blood Pressure Non-Invasive 61 mmHg Blood Pressure Method Automatic Blood Pressure Location Right arm Blood Pressure Cuff Size Medium Reason For Taking VItal Signs Routine 06/15/2024 22:04 EDT Temperature Oral 36.9 DegC Apical Heart Rate 120 bpm HI Respiratory Rate 18 br/min Systolic Blood Pressure Non-Invasive 114 mmHg Diastolic Blood Pressure Non-Invasive 53 mmHg LOW Reason For Taking VItal Signs Admission 06/15/2024 19:06 EDT Temperature Oral 36.9 DegC Peripheral Pulse Rate 105 bpm HI Respiratory Rate 18 br/min Systolic Blood Pressure Non-Invasive 128 mmHg Diastolic Blood Pressure Non-Invasive 63 mmHg Reason For Taking VItal Signs Routine 06/15/2024 16:45 EDT Temperature Oral 37.0 DegC Peripheral Pulse Rate 89 bpm Respiratory Rate 18 br/min Systolic Blood Pressure Non-Invasive 149 mmHg HI Diastolic Blood Pressure Non-Invasive 75 mmHg Reason For Taking VItal Signs Routine 06/15/2024 13:47 EDT Temperature Oral 37.9 DegC HI Peripheral Pulse Rate 108 bpm HI Respiratory Rate 18 br/min Systolic Blood Pressure Non-Invasive 137 mmHg Diastolic Blood Pressure Non-Invasive 65 mmHg Reason For Taking VItal Signs Admission 06/15/2024 11:54 EDT Peripheral Pulse Rate 105 bpm HI Respiratory Rate 18 br/min Systolic Blood Pressure Non-Invasive 107 mmHg Diastolic Blood Pressure Non-Invasive 59 mmHg LOW 06/15/2024 10:32 EDT Temperature Oral 37.3 DegC Peripheral Pulse Rate 136 bpm >HHI Respiratory Rate 16 br/min Systolic Blood Pressure Non-Invasive 120 mmHg Diastolic Blood Pressure Non-Invasive 79 mmHg Blood Pressure Method Automatic Blood Pressure Location Right arm Blood Pressure Cuff Size Medium . Mental status: at preoperative baseline. Respiratory function: respirations are non-labored, Stable. Respiratory support: none. CV function: Stable. Cardiovascular support: none. Pain: Satisfactory. Nausea status: Satisfactory. Postoperative hydration status: within normal limits. Notes: Patient is sufficiently recovered from anesthesia to participate in the evaluation. No follow-up care needed. No complications post-anesthesia.. Digitally Signed by LIVIA GUTIERREZ MD on 06/16/2024 07:37 PM [facility] [id number] Anesthesiology Consult note Patient: KIM NGUYEN Age: 19 years Sex: Female : 2005 Associated Diagnoses: None Author: LIVIA GUTIERREZ MD Preoperative Information No solid food for >8 hours; no clear liquids for >2 hours Anesthesia history Patient's history: negative. Family's history: negative. History of Present Illness 19yoF with PMH asthma and currently 18 weeks presenting for lap appe. Denies CP, SOB, fever, recent cough, cold or congestion; >4 METS. Pt nauseated with some GERD sx. Health Status Allergies: Allergic Reactions (Selected) Severity Not Documented Vicks Vapo Rub topical ointment- No reactions were documented., Allergies (1) ActiveSeverityReaction Vicks Vapo Rub topical ointmentNone Documented Current medications: (Selected) Inpatient Medications Ordered Dextrose 50% IV Push: 25 gram(s), 50 mL, IV Push, AsDirected, PRN: Low blood sugar Miralax Powder Packet: 17 gram(s), 15 mL, Oral, qDay, PRN: Constipation Multivitamins: 1 tab(s), Oral, qDay Tylenol: 650 mg, 2 tab(s), Oral, q4h, PRN: Pain, scale 1-10 Tylenol: 650 mg, 2 tab(s), Oral, q4h, PRN: TEMP greater than 38.6 degrees Celsius Zofran: 4 mg, 2 mL, IV Push, q4h, PRN: Nausea/Vomiting Zosyn: 3.375 gram(s), 70 mL, 17.5 mL/hr, IV Piggyback, q8hr heparin 5000 units/mL injection: 5,000 unit(s), 1 mL, Subcutaneous, q8h metoclopramide: 10 mg, 1 tab(s), Oral, TID Prescriptions Prescribed Reglan 10 mg oral tablet: 10 mg, 1 tab(s), Oral, TID, for 7 day(s), 21 tab(s), 0 Refill(s) cephalexin 500 mg oral capsule: 500 mg, 1 cap(s), Oral, q12h, for 7 day(s), 14 cap(s), 0 Refill(s) ondansetron 4 mg oral tablet, disintegratin mg, 1 tab(s), Oral, q6h, for 4 day(s), PRN: Nausea/Vomiting, 12 tab(s), 0 Refill(s) Documented Medications Documented Multivitamins: 1 tab(s), Oral, qDay, 0 Refill(s), Medications (9) Active Scheduled: (4) heparin 5,000 units/mL (1 mL) vial 5,000 unit(s) 1 mL, Subcutaneous, q8h metoclopramide 10 mg tablet 10 mg 1 tab(s), Oral, TID multivitamin, Multivitamins with Folic Acid 1 mg Tab 1 tab(s), Oral, qDay piperacillin-tazobactam PMX 3.375 gram(s) 70 mL, IV Piggyback, q8hr Continuous: (0) PRN: (5) acetaminophen 325 mg Tablet 650 mg 2 tab(s), Oral, q4h acetaminophen 325 mg Tablet 650 mg 2 tab(s), Oral, q4h dextrose 50% Solution Disp syringe 50 mL 25 gram(s) 50 mL, IV Push, AsDirected ondansetron 2 mg/ 1 mL 2 mL INJ 4 mg 2 mL, IV Push, q4h polyethylene glycol 3350 - UD packet 17 gram(s) 15 mL, Oral, qDay Problem list: Medical / SNOMED CT [id number] / Confirmed, Active Problems (1) Histories Past Medical History: No active or resolved past medical history items have been selected or recorded. Family History: Cancer Grandparent Stroke Father Diabetes Father Procedure history: No active procedure history items have been selected or recorded. Social History: Social & Psychosocial Habits Alcohol 06/15/2024 Use: Never Substance Abuse 06/15/2024 Use: Never Tobacco 06/15/2024 Tobacco Use: denies 06/15/2024 Tobacco Use: Never (less than 100 in l Home/Environment 06/15/2024 Living situation: Home/Independent Financial concerns: No Nutrition/Health 06/15/2024 Type of diet: Regular Sexual 06/15/2024 Sexually active: Yes Physical Examination Vital Signs (last 24 hrs) Last Charted Temp Oral37.2 DegC (JUNE 16 12:37) Heart Rate MonitoredH 125 bpm (JUNE 16 08:45) SBPH 143 mmHg (JUNE 16 12:37) DBP81 mmHg (JUNE 16 12:37) BMI34.53 (JUNE 15 22:10) Measurements from flowsheet : Measurements 06/15/2024 22:10 EDT Height 175.3 cm Height in inches 69 inch(es) Admission Weight 106.1 kg Weight Lbs 233.4 lb [place] Body Weight 66.24 kg Type of Scale Used Bed scale BSA Admission 2.21 Body Mass Index 34.53 kg/m2 06/15/2024 13:35 EDT Admission Weight 107.1 kg 06/15/2024 13:33 EDT Height 177.8 cm Height in inches 70 inch(es) Admission Weight 107.1 kg Weight Lbs 235.6 lb [place] Body Weight 68.50 kg Type of Scale Used Bed scale BSA Admission 2.24 Body Mass Index 33.88 kg/m2 General: Alert and oriented, No acute distress. Airway: Normal mouth, Normal neck range of motion. Mallampati classification: II (soft palate, fauces, uvula visible). Dentition Evaluation: Chipped teeth. Neck: Supple. Respiratory: Lungs are clear to auscultation, Respirations are non-labored. Cardiovascular: Normal rate, Regular rhythm. Heart Sounds: Normal. Neurologic: Alert, Oriented. Review / Management Results review: Labs (Last four charted values) WBC H 16.1(JUNE 16) Hgb L 11.5(JUNE 16) Hct 34.2(JUNE 16) Plt 193(JUNE 16) PT H 15.0(JUNE 16) INR 1.3(JUNE 16) . Documentation reviewed: Current records. Assessment and Plan [place] [employer] (ASA) physical status classification: Class II, E. Anesthetic Preoperative Plan Premedication: intravenous. Anesthetic technique: General. Induction: intravenously. Maintenance airway: Oral endotracheal tube. Postoperative pain management: Per surgeon. Risks discussed: nausea, vomiting, headache, sore throat, dental injury, hypotension, allergic reaction, serious complications. Informed consent: signed by patient. Digitally Signed by LIVIA GUTIERREZ MD on 06/16/2024 04:34 PM [facility] [id number] Telephone encounter Note* Telephone Encounter - Aurora Cuevas RN - 06/16/2024 1:55 PM EDT Left message for patient to call office. Aurora Cuevas RN [facility]05-05-2025 Miscellaneous Notes* Telephone Encounter - Aurora Cuevas RN - 06/16/2024 1:55 PM EDT Left message for patient to call office. Aurora Cuevas RN * Telephone Encounter - Jocelyn Yusuf MD - 06/16/2024 11:18 AM EDT No can follow up as scheduled if her symptoms improve * Telephone Encounter - Franco Ritchie RN - 06/16/2024 8:52 AM EDT 18w3d ER report received from [facility] this morning-Pt to ER on 06/13/24 for abdominal pain since 06/12/24. Per ERDr documentation- VS stable. Suspected UTI-UA and culture obtained, consistent with infection. Pt started on Macrobid and advised to f/u with OB provider. Pt's next OB appt is 07/01/24 at 9am. Do you advise Pt be seen sooner or call office if sx not improved? Please advise. Copy of ER report placed in scanning. Franco Ritchie RN documented in this [facility] Surgery Consult note Date of Service June 16, 2024 Reason for Consultation Concerns for appendicitis Referring Physician Hospitalist History of Present Illness Split shared visit between myself and Dr. López. Patient is a 19-year-old female who is 1 at 18 weeks and 2 days. Patient presented to [place] emergency department with complaints of abdominal pain with associated nausea and vomiting. Patient states this started on June. She denies having pain like this before. She states she was recently treated with antibiotics for UTI. Patient has been evaluated by [facility]. Per the notes, the patient was transferred to the [facility] for an MRI as these capabilities were not available in [place]. Patient was found to have a leukocytosis of 19.3 on presentation to [facility]. She has been started on IV Zosyn. On exam, she states she is no longer having nausea or vomiting but continues to have right lower quadrant discomfort. She states prior to this incident, she was in her normal state of health. Review of Systems All pertinent positives and negatives are stated in the HPI above. All other review of systems are considered negative unless otherwise stated above. Physical Exam Vitals and Measurements T: 37.4 C (Oral) TMIN: 36.9 C (Oral) TMAX: 37.4 C (Oral) HR: 121 (Monitored) RR: 18 BP: 112/57 SpO2: 97% HT: 175.3 cm WT: 106.1 kg BMI: 34.53 Weight Dosing Weight: 106.1 kg (06/15/24) General Appearance: In no acute distress. Head: Normocephalic, atraumatic. EENT: HEENT exams unremarkable. Neck: Supple. Cardiac: Regular S1-S2. No gallops, rubs, or murmur noted. Lungs: Clear to auscultation bilaterally. Chest rise symmetrical. Abdomen: Soft, diffuse tenderness noted concentrated tenderness noted in the right lower quadrant. No guarding or rigidity noted. Neurological: Alert and oriented, follows simple commands. Skin: Normal for ethnicity. No jaundice, pallor, or diaphoresis noted. Psychiatric: Calm and cooperative. Lab Results No 36 Hour Lab Data Assessment/Plan 19-year-old female who was transferred from [facility] in regards to possible appendicitis. At this time, MRI has not been completed I will order a stat CT abdomen/pelvis without contrast. If the patient does have a positive CT scan, we will proceed with laparoscopic intervention. Plan of care is discussed in detail with the patient. All questions and concerns have addressed answered. Case discussed with Dr. López. Addendum to follow. Problem List/Past Medical History Ongoing Procedure/Surgical History No qualifying data available. Medications Inpatient Dextrose 50% IV Push, 25 gram(s)= 50 mL, IV Push, AsDirected, PRN metoclopramide, 10 mg= 1 tab(s), Oral, TID Miralax Powder Packet, 17 gram(s)= 15 mL, Oral, qDay, PRN Multivitamins, 1 tab(s), Oral, qDay Tylenol, 650 mg= 2 tab(s), Oral, q4h, PRN Tylenol, 650 mg= 2 tab(s), Oral, q4h, PRN Zofran, 4 mg= 2 mL, IV Push, q4h, PRN Zosyn, 3.375 gram(s)= 70 mL, IV Piggyback, q8hr Home cephalexin 500 mg oral capsule, 500 mg= 1 cap(s), Oral, q12h, Not taking ondansetron 4 mg oral tablet, disintegrating, 4 mg= 1 tab(s), Oral, q6h, PRN Multivitamins, 1 tab(s), Oral, qDay Reglan 10 mg oral tablet, 10 mg= 1 tab(s), Oral, TID Allergies Vicks Vapo Rub topical ointment Social History Alcohol Use: Never., 06/15/2024 Home/Environment Living situation: Home/Independent. Financial concerns: No., 06/15/2024 Nutrition/Health Type of diet: Regular., 06/15/2024 Sexual Sexually active: Yes., 06/15/2024 Substance Abuse Use: Never., 06/15/2024 Tobacco Nicotine Use: Never (less than 100 in lifetime)., 06/15/2024 Nicotine Use: denies., 06/13/2024 Family History Cancer: Grandparent. Diabetes: Father. Stroke: Father. Health Status Family Member(s) Immunizations No qualifying data available. Digitally Signed by TANIA NINO on 06/16/2024 09:08 AM [facility] [id number] Note Date of Service 06/16/2024 Chief Complaint Abdominal pain Subjective 19-year-old female who is 18 weeks , she has no significant past medical history.The patient started to have right lower quadrant abdominal pain approximately 3 days ago with associated nausea and vomiting, she went into the [place] Emergency room and the emergency room physician thought that she had a urinary tract infection and she was admitted to the hospitalist service at [place]. Her urine analysis did not show any findings concerning for urinary tract infection and the patient actually does not endorse any urinary symptoms. Seen by OB at [place] who thought that acute appendicitis needs to be ruled out. The patient was transferred to [facility] because theythought that the patient needed a stat MRI of her abdomen to diagnose acute appendicitis. Admitted by overnight physician And OB was consulted and they have since signed off. When I saw the patient she continues to complain of abdominal pain, she now states that her abdominal pain is diffuse but definitely is worse in the right lower quadrant. Objective Vitals and Measurements T: 37.4 C (Oral) TMIN: 36.9 C (Oral) TMAX: 37.4 C (Oral) HR: 121 (Monitored) RR: 19 BP: 112/57 SpO2: 98% HT: 175.3 cm WT: 106.1 kg BMI: 34.53 Intake and Output 7AM Yesterday to 7AM Today Intake and Output (Last 24 hours) Intake Oral Intake 100.00 Output Urine Voided 0.00 Stool Count 0.00 Urine Count 3.00 Total Summary Total Intake 100.00 Total Output 0.00 Fluid Balance 100.00 Physical Exam GENERAL: Adult female laying in bed in mild painful distress. HEENT: Mucous membranes pink and moist, poor dentition NEURO: Alert and oriented X 3 CVS: S1 & S2 audible, Regular Rate and Rhythm CHEST : No accesory muscle use, equal air entry bilaterally, no adventitious breath sounds GI: abdomen soft uterus gravidarum to about the level of the umbilicus. There is diffuse abdominal tenderness right lower quadrant. Weight Dosing Weight: 106.1 kg (06/15/24) Medications Medications (8) Active Scheduled: (3) metoclopramide 10 mg tablet 10 mg 1 tab(s), Oral, TID multivitamin, Multivitamins with Folic Acid 1 mg Tab 1 tab(s), Oral, qDay piperacillin-tazobactam PMX 3.375 gram(s) 70 mL, IV Piggyback, q8hr Continuous: (0) PRN: (5) acetaminophen 325 mg Tablet 650 mg 2 tab(s), Oral, q4h acetaminophen 325 mg Tablet 650 mg 2 tab(s), Oral, q4h dextrose 50% Solution Disp syringe 50 mL 25 gram(s) 50 mL, IV Push, AsDirected ondansetron 2 mg/ 1 mL 2 mL INJ 4 mg 2 mL, IV Push, q4h polyethylene glycol 3350 - UD packet 17 gram(s) 15 mL, Oral, qDay Lab Results 06/16 08:40 WBC: 16.1 H Hgb: 11.5 L Hct: 34.2 Platelet: 193 Neutrophil %: 89.3 H Protime: 15.0 H PT International Ratio: 1.3 EKG No qualifying data available. Assessment/Plan 1. Abdominal pain with concern for acute appendicitis 2. 18 weeks 3. Leukocytosis 4. Electrolyte abnormalities Plan: The patient presented to the [facility] as a transfer from the [place] emergency room. I wasactually familiar with this patient while she was at [place], the nurse practitioner at [place] had reached out to me and told me that the emergency room physician wanted to admit the patient was 18 weeks and had a urinary tract infection. My instruction to her was to have OB see the patient, that was the last communication that I had about this patient. I am very surprised that the patient is now at [facility] with a concern for acute appendicitis and I was never told about this. Also no one spoke to the surgery team before transferring the patient to the [facility], ap parently they had spoken with maternal medicine but they have not seen the patient here and has signed off. On physical examination she does have right lower quadrant tenderness, there is a concern for an acute surgical intra-abdominal pathology which obviously is outside the scope of practice of an internal medicine physician. I spoke with the nurse practitioner for general surgery and they will be coming to see the patient and evaluate her. If this patient does have acute appendicitis I we will ask for her to be transferred to the generalsurgery service, also I do think that obstetrics needs to be somewhat more involved during the in-hospital management of this patient. Antibiotics escalated to Zosyn Keep n.p.o. Level of Care Indication Regular Floor DVT Prophylaxis Heparin SQ Maintenance IVF Indication NPO Indwelling Urinary Catheter Indication NA No indwelling catheter Anticipated Timeline of Discharge 72+ hours Anticipated DC Disposition Home without services Digitally Signed by WISAM SPENCE MD on 06/16/2024 09:38 AM [facility] [id number] Note* Exam Date Time Procedure Performing Provider Status 06/16/24 11:18 AM US Pelvis Non-OB Complete ABENA MAGAÑA MD; Auth (Verified) [id number] ORIGINAL EXAMINATION: Ultrasound pelvis and right lower quadrant with duplex ovarian Doppler, 06/16/2024 11:18 am COMPARISON: None TECHNIQUE: Transabdominal study of the right lower quadrant and pelvis is performed. Duplex evaluation of the ovaries is also performed. This report is based on interpretation of permanently recorded ultrasound images. HISTORY: ORDERING SYSTEM PROVIDED HISTORY: Reason for Exam: rlq pain, patient is 18 weeks FINDINGS: The is not evaluated on this study. Right ovary: 4.1 x 2.6 x 2.9 cm. There is a 1.6 cm hypoechoic mildly complex cystic lesion in the ovary that is probably corpus luteal. Left ovary: 3.3 x 1.3 x 3.1 cm. No suspicious ovarian lesion. There is blood flow to both ovaries with color Doppler. Spectral analysis shows arterial inflow and venous outflow waveforms in both ovaries also. No pelvic free fluid is visualized on this study. Right lower quadrant imaging visualizes a blindly ending tubular structure that is believed to be the appendix. This is about 10 cm in length and 14 mm in diameter. The posterior wall of the appendix is up to 5 mm in thickness. There is an appendicoliths at its base but moderate air is present in its lumen. No surrounding fluid collection is seen. Technologist reports rebound tenderness over this structure. IMPRESSION: Normal ovaries with robust blood flow on duplex Doppler. Abnormal appearance of the appendix suggesting acute appendicitis in the appropriate clinical setting. Interpreted by: Annamaria Magaña MD Preliminary Report By: Annmaaria Magaña MD Electronically signed By Annamaria Magaña MD Dictated Date: 06/16/2024 11:22:58 AM Prelim Date: 06/16/2024 11:29:08 AM Sign Date: 06/16/2024 11:29:08 AM Ordering Provider: TANIA [facility]05-05-2025 Telephone encounter Note* Telephone Encounter - Jocelyn Yusuf MD - 06/16/2024 11:18 AM EDT No can follow up as scheduled if her symptoms improve [facility] Work Phone: [phone]) 263-553005-05-2025 Note Date of Service 06/16/2024 Chief Complaint Abdominal pain Subjective 19-year-old female who is 18 weeks , she has no significant past medical history.The patient started to have right lower quadrant abdominal pain approximately 3 days ago with associated nausea and vomiting, she went into the [place] Emergency room and the emergency room physician thought that she had a urinary tract infection and she was admitted to the hospitalist service at [place]. Her urine analysis did not show any findings concerning for urinary tract infection and the patient actually does not endorse any urinary symptoms. Seen by OB at [place] who thought that acute appendicitis needs to be ruled out. The patient was transferred to [facility] because theythought that the patient needed a stat MRI of her abdomen to diagnose acute appendicitis. Admitted by overnight physician And OB was consulted and they have since signed off. When I saw the patient she continues to complain of abdominal pain, she now states that her abdominal pain is diffuse but definitely is worse in the right lower quadrant. Objective Vitals and Measurements T: 37.4 C (Oral) TMIN: 36.9 C (Oral) TMAX: 37.4 C (Oral) HR: 121 (Monitored) RR: 19 BP: 112/57 SpO2: 98% HT: 175.3 cm WT: 106.1 kg BMI: 34.53 Intake and Output 7AM Yesterday to 7AM Today Intake and Output (Last 24 hours) Intake Oral Intake 100.00 Output Urine Voided 0.00 Stool Count 0.00 Urine Count 3.00 Total Summary Total Intake 100.00 Total Output 0.00 Fluid Balance 100.00 Physical Exam GENERAL: Adult female laying in bed in mild painful distress. HEENT: Mucous membranes pink and moist, poor dentition NEURO: Alert and oriented X 3 CVS: S1 & S2 audible, Regular Rate and Rhythm CHEST : No accesory muscle use, equal air entry bilaterally, no adventitious breath sounds GI: abdomen soft uterus gravidarum to about the level of the umbilicus. There is diffuse abdominal tenderness right lower quadrant. Weight Dosing Weight: 106.1 kg (06/15/24) Medications Medications (8) Active Scheduled: (3) metoclopramide 10 mg tablet 10 mg 1 tab(s), Oral, TID multivitamin, Multivitamins with Folic Acid 1 mg Tab 1 tab(s), Oral, qDay piperacillin-tazobactam PMX 3.375 gram(s) 70 mL, IV Piggyback, q8hr Continuous: (0) PRN: (5) acetaminophen 325 mg Tablet 650 mg 2 tab(s), Oral, q4h acetaminophen 325 mg Tablet 650 mg 2 tab(s), Oral, q4h dextrose 50% Solution Disp syringe 50 mL 25 gram(s) 50 mL, IV Push, AsDirected ondansetron 2 mg/ 1 mL 2 mL INJ 4 mg 2 mL, IV Push, q4h polyethylene glycol 3350 - UD packet 17 gram(s) 15 mL, Oral, qDay Lab Results 06/16 08:40 WBC: 16.1 H Hgb: 11.5 L Hct: 34.2 Platelet: 193 Neutrophil %: 89.3 H Protime: 15.0 H PT International Ratio: 1.3 EKG No qualifying data available. Assessment/Plan 1. Abdominal pain with concern for acute appendicitis 2. 18 weeks 3. Leukocytosis 4. Electrolyte abnormalities Plan: The patient presented to the [facility] as a transfer from the [place] emergency room. I wasactually familiar with this patient while she was at [place], the nurse practitioner at [place] had reached out to me and told me that the emergency room physician wanted to admit the patient was 18 weeks and had a urinary tract infection. My instruction to her was to have OB see the patient, that was the last communication that I had about this patient. I am very surprised that the patient is now at [facility] with a concern for acute appendicitis and I was never told about this. Also no one spoke to the surgery team before transferring the patient to the [facility], ap parently they had spoken with maternal medicine but they have not seen the patient here and has signed off. On physical examination she does have right lower quadrant tenderness, there is a concern for an acute surgical intra-abdominal pathology which obviously is outside the scope of practice of an internal medicine physician. I spoke with the nurse practitioner for general surgery and they will be coming to see the patient and evaluate her. If this patient does have acute appendicitis I we will ask for her to be transferred to the generalsurgery service, also I do think that obstetrics needs to be somewhat more involved during the in-hospital management of this patient. Antibiotics escalated to Zosyn Keep n.p.o. Level of Care Indication Regular Floor DVT Prophylaxis Heparin SQ Maintenance IVF Indication NPO Indwelling Urinary Catheter Indication NA No indwelling catheter Anticipated Timeline of Discharge 72+ hours Anticipated DC Disposition Home without services Digitally Signed by WISAM SPENCE MD on 06/16/2024 09:38 AM [facility] [id number] Surgery Consult note Date of Service June 16, 2024 Reason for Consultation Concerns for appendicitis Referring Physician Hospitalist History of Present Illness Split shared visit between myself and Dr. López. Patient is a 19-year-old female who is 1 at 18 weeks and 2 days. Patient presented to [place] emergency department with complaints of abdominal pain with associated nausea and vomiting. Patient states this started on June. She denies having pain like this before. She states she was recently treated with antibiotics for UTI. Patient has been evaluated by [facility]. Per the notes, [facility] these capabilities were not available in [place]. Patient was found to have a leukocytosis of 19.3 on presentation to [facility]. She has been started on IV Zosyn. On exam, she states she is no longer having nausea or vomiting but continues to have right lower quadrant discomfort. She states prior to this incident, she was in her normal state of health. Review of Systems All pertinent positives and negatives are stated in the HPI above. All other review of systems are considered negative unless otherwise stated above. Physical Exam Vitals and Measurements T: 37.4 C (Oral) TMIN: 36.9 C (Oral) TMAX: 37.4 C (Oral) HR: 121 (Monitored) RR: 18 BP: 112/57 SpO2: 97% HT: 175.3 cm WT: 106.1 kg BMI: 34.53 Weight Dosing Weight: 106.1 kg (06/15/24) General Appearance: In no acute distress. Head: Normocephalic, atraumatic. EENT: HEENT exams unremarkable. Neck: Supple. Cardiac: Regular S1-S2. No gallops, rubs, or murmur noted. Lungs: Clear to auscultation bilaterally. Chest rise symmetrical. Abdomen: Soft, diffuse tenderness noted concentrated tenderness noted in the right lower quadrant. No guarding or rigidity noted. Neurological: Alert and oriented, follows simple commands. Skin: Normal for ethnicity. No jaundice, pallor, or diaphoresis noted. Psychiatric: Calm and cooperative. Lab Results No 36 Hour Lab Data Assessment/Plan 19-year-old female who was transferred from [facility] in regards to possible appendicitis. At this time, MRI has not been completed I will order a stat CT abdomen/pelvis without contrast. If the patient does have a positive CT scan, we will proceed with laparoscopic intervention. Plan of care is discussed in detail with the patient. All questions and concerns have addressed answered. Case discussed with Dr. López. Addendum to follow. Problem List/Past Medical History Ongoing Procedure/Surgical History No qualifying data available. Medications Inpatient Dextrose 50% IV Push, 25 gram(s)= 50 mL, IV Push, AsDirected, PRN metoclopramide, 10 mg= 1 tab(s), Oral, TID Miralax Powder Packet, 17 gram(s)= 15 mL, Oral, qDay, PRN Multivitamins, 1 tab(s), Oral, qDay Tylenol, 650 mg= 2 tab(s), Oral, q4h, PRN Tylenol, 650 mg= 2 tab(s), Oral, q4h, PRN Zofran, 4 mg= 2 mL, IV Push, q4h, PRN Zosyn, 3.375 gram(s)= 70 mL, IV Piggyback, q8hr Home cephalexin 500 mg oral capsule, 500 mg= 1 cap(s), Oral, q12h, Not taking ondansetron 4 mg oral tablet, disintegrating, 4 mg= 1 tab(s), Oral, q6h, PRN Multivitamins, 1 tab(s), Oral, qDay Reglan 10 mg oral tablet, 10 mg= 1 tab(s), Oral, TID Allergies Vicks Vapo Rub topical ointment Social History Alcohol Use: Never., 06/15/2024 Home/Environment Living situation: Home/Independent. Financial concerns: No., 06/15/2024 Nutrition/Health Type of diet: Regular., 06/15/2024 Sexual Sexually active: Yes., 06/15/2024 Substance Abuse Use: Never., 06/15/2024 Tobacco Nicotine Use: Never (less than 100 in lifetime)., 06/15/2024 Nicotine Use: denies., 06/13/2024 Family History Cancer: Grandparent. Diabetes: Father. Stroke: Father. Health Status Family Member(s) Immunizations No qualifying data available. Digitally Signed by TANIA NINO on 06/16/2024 09:08 AM [facility] [id number] Telephone encounter Note* Telephone Encounter - Franco Ritchie RN - 06/16/2024 8:52 AM EDT 18w3d ER report received from [facility] this morning-Pt to ER on 06/13/24 for abdominal pain since 06/12/24. Per ERDr documentation- VS stable. Suspected UTI-UA and culture obtained, consistent with infection. Pt started on Macrobid and advised to f/u with OB provider. Pt's next OB appt is 07/01/24 at 9am. Do you advise Pt be seen sooner or call office if sx not improved? Please advise. Copy of ER report placed in scanning. Franco Ritchie RN [facility]05-05-2025 Gynecology Consult note Date of Service 06/15/2024 Reason for Consultation in the setting of possible appendicitis Referring Physician Dr. Derrick Liu History of Present Illness Patient is a 19-year-old G1 at 18w2d with TUSHAR of 11/14/2024 by LMP equals 7-week ultrasound. She presents as a transfer of care from [facility] due to unresolving abdominal pain and suspected appendicitis. Previous evaluation by [facility] at [facility] had suggested obtaining an MRI to rule out appendicitis. MRI is not available at [facility], therefore she was transferred to [facility]. On evaluation, patient notes her symptoms began . She presented to the [place] ER on Sunday. They diagnosed her with a UTI and prescribed Macrobid. She subsequently also presentedto the [facility] emergency department that same evening for continued abdominal pain. She was given a dose of Rocephin and discharged home with a course of Keflex. Again, she presented to [facility] today for persistent pain. She was subsequently admitted under the hospitalist there and [facility] was consulted. She indicates that she does not appreciate any nausea, fevers, chest pain, di fficulty breathing, headache, vision changes. Does indicate abdominal and back pain, cramping. She had vomited, she is no longer vomiting. Initial laboratory work during her [place] admission showed a leukocytosis. She was treated symptomatically and given fluids. IV Rocephin 1 g was continued. [facility] evaluation at [facility] suggested that patient's pain was not due to a UTI but possible acute appendicitis. Maternal- medicine consultation was obtained and they recommended the transfer for emergent MRI to rule out appendicitis. [facility] consultation is sought here for further recommendation and evaluation. [facility] history . Menarche age 11. Menopause age. Irregular periods. Never had a Pap smear. Mammogram never. Colonoscopy never. Review of Systems See HPI for pertinent positives. A full review of systems was conducted and found otherwise to be negative. Physical Exam Vitals and Measurements T: 36.9 C (Oral) HR: 131 RR: 18 BP: 102/61 SpO2: 97% HT: 175.3 cm WT: 106.1 kg BMI: 34.53 Weight Dosing Weight: 106.1 kg (06/15/24) General: A&O x3 HEENT: normocephalic, atraumatic Cardio: RRR, no murmurs, no rubs, no gallops Lungs: Breathing w/out difficulty, no use of accessory muscles, clear to auscultation bilaterally, no wheezes, no rhonci, no crackles GI: Tender predominantly in the upper quadrants of the abdomen including the midline, biased towards the right side. Some more mild tenderness in the right lower quadrant. On bimanual exam, minimal adnexal tenderness. The uterus and ovaries were normal size. The cervix was closed. There is no vaginal bleeding. No abnormal or foul-smelling discharge. Extremities: non-edematous Neuro: Normal sensation Psychiatric: Normal affect, normal demeanor. Well groomed. Non-pressured speech. Skin: warm, no rashes. Lab Results CBC 06/15/24 18:13 06/15/24 10:59 06/13/24 23:02 Hct 35.1 % 34.9 % 37.8 % Hgb 11.9 G/dL L 12.1 G/dL 13.1 G/dL MCH 29.8 pg 30.1 pg 30.3 pg MCHC 33.9 G/dL 34.6 G/dL 34.6 G/dL MCV 87.8 fL 87.1 fL 87.6 fL MPV 7.0 fL 7.2 fL 7.0 fL Platelet 198 10^3/mcL 199 10^3/mcL 246 10^3/mcL RBC 3.99 10^6/mcL L 4.01 10^6/mcL L 4.32 10^6/mcL RDW 13.0 % 12.9 % 12.6 % WBC 18.4 10^3/mcL H 19.3 10^3/mcL H 18.0 10^3/mcL H CMP 5/4: Glucose 107, Sodium 135, potassium 3.4, creatinine 0.47 amylase 14, lactic acid 1.0, lipase 13 Urine culture 5/2: Probable contamination Urinalysis 06/15: Negative nitrites, negative leukocyte esterase Assessment/Plan Patient is a 19-year-old G1 at 18w2d with TUSHAR of 11/14/2024 by LMP equals 7-week ultrasound who presents as transfer of care from [facility] due to suspected appendicitis 1. Abdominal pain Patient notes persistent abdominal pain since 06/12. Afebrile, mild tachycardia 100s 130s, vitals otherwise normal. Exam significant for abdominal pain predominantly located predominantly on the right side includingthe midline, right upper quadrant, and right lower quadrant tenderness. Most recent labs available show leukocytosis of 18.4, otherwise a mild hypokalemia of 3.4. Normal amylase, lipase, lactic acid. No imaging has been performed at this time. Was suggested by previous [facility]ZER UNLOADER evaluation that an emergent MRI be performed. Ultrasound was deferred previously as it was felt to not be conclusive and patient would require transfer to a tertiary center if appendicitis was identified. The initial modality for diagnostic imaging of the appendix and is ultrasound. This may not be as accurate as MRI or CT and diagnosing appendicitis but is safe during and avoids potential radiation. If ultrasound examination is inconclusive for appendicitis, MRI is the preferred next test however, if this is not readily available or available quickly, CT could be performed. It was discussed with the patient possible ionizing radiation exposure, in the setting of indicated imaging such as CT, patient understands the low risk associated with this especially now past embryogenesis. Surgery should not be delayed in with findings suggestive of appendicitis despite inconclusive u ltrasound results. Given the propensity for MRI to be not be performed in a timely manner, would suggest ultrasound with follow-up CT if inconclusive. If MRI is able to be obtained in a timely manner, can proceed with current plan as suggested by previous [facility]ZER UNLOADER evaluation. Surgery as indicated pending general surgery consultation at hospitalist discretion. Could also consider right upper quadrant ultrasound to rule out gallbladder etiology. A gonorrhea and chlamydia swab was obtained to rule out PID etiology but this is a low suspicion given the lack of adnexal tenderness and lack of characteristic discharge. Low suspicion of obstetric related etiology including spontaneous miscarriage given cervix is closed without any vaginal bleeding. A Doptone has been obtained today at [place]. Continue daily Doptone's. With above recommendations, FREEZER UNLOADER will sign off at this time. Available if any additional questions or concerns pending further evaluation by primary team. Plan and management discussed with Dr. Norris Problem List/Past Medical History Ongoing Asthma Procedure/Surgical History Strabismus surgery at age 2 Medications Inpatient Dextrose 50% IV Push, 25 gram(s)= 50 mL, IV Push, AsDirected, PRN metoclopramide, 10 mg= 1 tab(s), Oral, TID Miralax Powder Packet, 17 gram(s)= 15 mL, Oral, qDay, PRN NS 1,000 mL, 1000 mL, Intravenous Multivitamins, 1 tab(s), Oral, qDay Rocephin, 1 gram(s)= 10 mL, IV Push (INT), qDay Tylenol, 650 mg= 2 tab(s), Oral, q4h, PRN Tylenol, 650 mg= 2 tab(s), Oral, q4h, PRN Zofran, 4 mg= 2 mL, IV Push, q4h, PRN Home cephalexin 500 mg oral capsule, 500 mg= 1 cap(s), Oral, q12h, Not taking ondansetron 4 mg oral tablet, disintegrating, 4 mg= 1 tab(s), Oral, q6h, PRN Multivitamins, 1 tab(s), Oral, qDay Reglan 10 mg oral tablet, 10 mg= 1 tab(s), Oral, TID Allergies Vicks Vapo Rub topical ointment Social History Alcohol Use: Never., 06/15/2024 Home/Environment Living situation: Home/Independent. Financial concerns: No., 06/15/2024 Nutrition/Health Type of diet: Regular., 06/15/2024 Sexual Sexually active: Yes., 06/15/2024 Substance Abuse Use: Never., 06/15/2024 Currently vapes Family History Cancer: Grandparent. Diabetes: Father. Stroke: Father. Health Status Family Member(s) Denies a family history of: -problems with anesthesia, including malignant hyperthermia -bleeding/clotting disorders Immunizations No qualifying data available. Digitally Signed by JUSTINA BRO DO on 06/16/2024 12:14 AM Digitally Signed by JUSTINA BRO DO on 06/16/2024 12:17 AM [facility] [id number] Gynecology Consult note Date of Service 06/15/2024 Reason for Consultation in the setting of possible appendicitis Referring Physician Dr. Derrick Liu History of Present Illness Patient is a 19-year-old G1 at 18w2d with TUSHAR of 11/14/2024 by LMP equals 7-week ultrasound. She presents as a transfer of care from [facility] due to unresolving abdominal pain and suspected appendicitis. Previous evaluation by FREEZER UNLOAD[facility] at [facility] had suggested obtaining an MRI to rule out appendicitis. MRI is not available at [facility], therefore she was transferred to [facility]. On evaluation, patient notes her symptoms began . She presented to the [place] ER on Sunday. They diagnosed her with a UTI and prescribed Macrobid. She subsequently also presentedto the [facility] emergency department that same evening for continued abdominal pain. She was given a dose of Rocephin and discharged home with a course of Keflex. Again, she presented to [facility] today for persistent pain. She was subsequently admitted under the hospitalist there and FREEZER UNLOADER was consulted. She indicates that she does not appreciate any nausea, fevers, chest pain, di fficulty breathing, headache, vision changes. Does indicate abdominal and back pain, cramping. She had vomited, she is no longer vomiting. Initial laboratory work during her [place] admission showed a leukocytosis. She was treated symptomatically and given fluids. IV Rocephin 1 g was continued. [facility]LOAD[facility] evaluation at [facility] suggested that patient's pain was not due to a UTI but possible acute appendicitis. Maternal- medicine consultation was obtained and they recommended the transfer for emergent MRI to rule out appendicitis. FREEZER UNLOADER consultation is sought here for further recommendation and evaluation. FREEZER UNLOADER history . Menarche age 11. Menopause age. Irregular periods. Never had a Pap smear. Mammogram never. Colonoscopy never. Review of Systems See HPI for pertinent positives. A full review of systems was conducted and found otherwise to be negative. Physical Exam Vitals and Measurements T: 36.9 C (Oral) HR: 131 RR: 18 BP: 102/61 SpO2: 97% HT: 175.3 cm WT: 106.1 kg BMI: 34.53 Weight Dosing Weight: 106.1 kg (06/15/24) General: A&O x3 HEENT: normocephalic, atraumatic Cardio: RRR, no murmurs, no rubs, no gallops Lungs: Breathing w/out difficulty, no use of accessory muscles, clear to auscultation bilaterally, no wheezes, no rhonci, no crackles GI: Tender predominantly in the upper quadrants of the abdomen including the midline, biased towards the right side. Some more mild tenderness in the right lower quadrant. On bimanual exam, minimal adnexal tenderness. The uterus and ovaries were normal size. The cervix was closed. There is no vaginal bleeding. No abnormal or foul-smelling discharge. Extremities: non-edematous Neuro: Normal sensation Psychiatric: Normal affect, normal demeanor. Well groomed. Non-pressured speech. Skin: warm, no rashes. Lab Results CBC 06/15/24 18:13 06/15/24 10:59 06/13/24 23:02 Hct 35.1 % 34.9 % 37.8 % Hgb 11.9 G/dL L 12.1 G/dL 13.1 G/dL MCH 29.8 pg 30.1 pg 30.3 pg MCHC 33.9 G/dL 34.6 G/dL 34.6 G/dL MCV 87.8 fL 87.1 fL 87.6 fL MPV 7.0 fL 7.2 fL 7.0 fL Platelet 198 10^3/mcL 199 10^3/mcL 246 10^3/mcL RBC 3.99 10^6/mcL L 4.01 10^6/mcL L 4.32 10^6/mcL RDW 13.0 % 12.9 % 12.6 % WBC 18.4 10^3/mcL H 19.3 10^3/mcL H 18.0 10^3/mcL H CMP 06/15: Glucose 107, Sodium 135, potassium 3.4, creatinine 0.47 amylase 14, lactic acid 1.0, lipase 13 Urine culture 06/13: Probable contamination Urinalysis 06/15: Negative nitrites, negative leukocyte esterase Assessment/Plan Patient is a 19-year-old G1 at 18w2d with TUSHAR of 11/14/2024 by LMP equals 7-week ultrasound who presents as transfer of care from [facility] due to suspected appendicitis 1. Abdominal pain Patient notes persistent abdominal pain since 06/12. Afebrile, mild tachycardia 100s 130s, vitals otherwise normal. Exam significant for abdominal pain predominantly located predominantly on the right side includingthe midline, right upper quadrant, and right lower quadrant tenderness. Most recent labs available show leukocytosis of 18.4, otherwise a mild hypokalemia of 3.4. Normal amylase, lipase, lactic acid. No imaging has been performed at this time. Was suggested by previous [facility]ZER UNLOADER evaluation that an emergent MRI be performed. Ultrasound was deferred previously as it was felt to not be conclusive and patient would require transfer to a tertiary center if appendicitis was identified. The initial modality for diagnostic imaging of the appendix and is ultrasound. This may not be as accurate as MRI or CT and diagnosing appendicitis but is safe during and avoids potential radiation. If ultrasound examination is inconclusive for appendicitis, MRI is the preferred next test however, if this is not readily available or available quickly, CT could be performed. It was discussed with the patient possible ionizing radiation exposure, in the setting of indicated imaging such as CT, patient understands the low risk associated with this especially now past embryogenesis. Surgery should not be delayed in with findings suggestive of appendicitis despite inconclusive u ltrasound results. Given the propensity for MRI to be not be performed in a timely manner, would suggest ultrasound with follow-up CT if inconclusive. If MRI is able to be obtained in a timely manner, can proceed with current plan as suggested by previous FREEZER UNLOADER evaluation. Surgery as indicated pending general surgery consultation at hospitalist discretion. Could also consider right upper quadrant ultrasound to rule out gallbladder etiology. A gonorrhea and chlamydia swab was obtained to rule out PID etiology but this is a low suspicion given the lack of adnexal tenderness and lack of characteristic discharge. Low suspicion of obstetric related etiology including spontaneous miscarriage given cervix is closed without any vaginal bleeding. A Doptone has been obtained today at [place]. Continue daily Doptone's. With above recommendations, FREEZER UNLOADER will sign off at this time. Available if any additional questions or concerns pending further evaluation by primary team. Plan and management discussed with Dr. Norris Problem List/Past Medical History Ongoing Asthma Procedure/Surgical History Strabismus surgery at age 2 Medications Inpatient Dextrose 50% IV Push, 25 gram(s)= 50 mL, IV Push, AsDirected, PRN metoclopramide, 10 mg= 1 tab(s), Oral, TID Miralax Powder Packet, 17 gram(s)= 15 mL, Oral, qDay, PRN NS 1,000 mL, 1000 mL, Intravenous Multivitamins, 1 tab(s), Oral, qDay Rocephin, 1 gram(s)= 10 mL, IV Push (INT), qDay Tylenol, 650 mg= 2 tab(s), Oral, q4h, PRN Tylenol, 650 mg= 2 tab(s), Oral, q4h, PRN Zofran, 4 mg= 2 mL, IV Push, q4h, PRN Home cephalexin 500 mg oral capsule, 500 mg= 1 cap(s), Oral, q12h, Not taking ondansetron 4 mg oral tablet, disintegrating, 4 mg= 1 tab(s), Oral, q6h, PRN Multivitamins, 1 tab(s), Oral, qDay Reglan 10 mg oral tablet, 10 mg= 1 tab(s), Oral, TID Allergies Vicks Vapo Rub topical ointment Social History Alcohol Use: Never., 06/15/2024 Home/Environment Living situation: Home/Independent. Financial concerns: No., 06/15/2024 Nutrition/Health Type of diet: Regular., 06/15/2024 Sexual Sexually active: Yes., 06/15/2024 Substance Abuse Use: Never., 06/15/2024 Currently vapes Family History Cancer: Grandparent. Diabetes: Father. Stroke: Father. Health Status Family Member(s) Denies a family history of: -problems with anesthesia, including malignant hyperthermia -bleeding/clotting disorders Immunizations No qualifying data available. Digitally Signed by JUSTINA BRO DO on 06/16/2024 12:14 AM Digitally Signed by JUSTINA BRO DO on 06/16/2024 12:17 AM [facility] [id number] History and physical note [facility] Medicine Hospitalist History and Physical Date of Admission: patient is being admitted on June 15, 2024 Chief complaint: abdominal pain History of present illness: History is taken from talking with the patient as well as reviewing medical records. Patient was accepted as a transfer from [facility] by my colleague. Per the patient she has no past medical problems and is not on any chronic medications. The patient follows with [facility]ZER UN[facility] at [facility] for her . Patient was recently diagnosed with a urinary tract infection and was given ceftriaxone in the emergency room and then discharged on Keflex. Patient returned to the emergency room due to having ongoing severe diffuse abdominal pain. She denies nausea or vomiting. Denies fevers, chills or night sweats. Since being admitted at [facility] the patient did have a fever of 37.9 otherwise is hemodynamically stable and 97% room air. The patient has an ongoing leukocytosis of 18.4 and also has a hemoglobin 11.9 sodium 135 potassium3.4 LFTs within normal limits. The patient was evaluated by FREEZER UNLOADER today who felt like her abdominal pain was not secondary to theurinary tract infection. She was concerned that the patient might have appendicitis and therefore recommended that she be transferred here for an MRI to rule out appendicitis. Past medical history: Family history: Father: Diabetes; Stroke Grandparent: Cancer Social history: Denies smoking cigarettes or alcohol consumption Medications: Home Medications (4) Active cephalexin 500 mg oral capsule 500 mg = 1 cap(s), Oral, q12h ondansetron 4 mg oral tablet, disintegrating 4 mg = 1 tab(s), PRN, Oral, q6h Multivitamins 1 tab(s), Oral, qDay Reglan 10 mg oral tablet 10 mg = 1 tab(s), Oral, TID Allergies: Vicks Vapo Rub topical ointment Review of systems: See HPI for pertinent positives and negatives. All other review of systems have been reviewed and they are negative. Vitals Signs(Last 24 hrs)__Last Charted Minimum Maximum Temp36.9(JUNE 15 22:04)36.9(JUNE 15:04)36.9(JUNE 15:04) Heart RateH 120(JUNE 15:04)H 120(JUNE 15 22:04)H 120(JUNE 15:04) XDZ330(JUNE 15 22:04)114(JUNE 15 22:04)114(JUNE 15:04) DBPL 53(JUNE 15:)L 53(JUNE 15:04)L 53(JUNE 15:04) Physical examination: HEENT: No Pallor, No Icterus Cardiac: RRR, No murmur Lungs: CTA, good air entry Abdomen: Soft, diffuse abdominal pain Musculoskeletal: No joint pains or swelling Extremities: No edema, good pulses Neurological: Alert, no deficits Skin: No rash, no nodules Labs: as mentioned in the HPI Assessment and plan: Patient was accepted as a transfer from [facility] by my colleague on June 15, 2024 due to concern for ongoing abdominal pain. Ongoing abdominal pain. Patient does require two midnight hospital stay due to having severe abdominal pain with fevers with a leukocytosis with concern for possible appendicitis in a patient. Will continue IV fluids. NPO after midnight. Will order an MRI per FREEZER UNLOADER recommendations. Will consult FREEZER UNLOADER for further recommendations and evaluation. Will check repeat labs in the morning. Patient cannot be treated outpatient as she would be high risk for decompensation especially since she is . Complicated urinary tract infection due to . Will get blood cultures. For now continue thepatient on ceftriaxone. Anemia. Will monitor Hyponatremia, hypovolemia. Will give two more liters of IV fluids Hypokalemia. Replace as needed 18 weeks . Will consult FREEZER UNLOADER. Prophylaxis SCD in case of procedure Code status full code Digitally Signed by DERRICK LIU MD on 06/15/2024 10:43 PM [facility] [id number] Note [facility], patient seen again and bedside scan shows fundal placenta without evidence of abruption, active SLIUP with FHR ~ 150, cephalic, subjectively adequate fluid. Cervix rechecked and closed, thick with right fornix remaining much more tender than left fornix. Patient was screaming in pain when I first entered the room, and IV Nubain 10mg given for pain relief with good effect. 20 minutes later, patient was resting quietly. [facility]. Patient remains hemodynamically stable without evidence of sepsis. Digitally Signed by MARYJO ANNE MD on 06/15/2024 07:01 PM [facility]05-04-2025 Nurse Progress note heart tone 150 heard via [employer]pplar Digitally Signed by JOSÉ MANUEL Felder on 06/15/2024 05:56 PM [facility]05-04-2025 Note [place] ADMISSION HISTORY AND PHYSICIAL CHIEF COMPLAINT: Abdominal pain HISTORY OF PRESENT ILLNESS: This 19-year-old white female 1 estimated gestational age 18 weeks by her own report, has been receiving obstetric care from the [facility] obstetric service. She was well and had gone to work, when She left and presented to [facility] emergency room about 4 PM on 13 June due to general malaise with lightheadedness and nausea. He was evaluated and given a diagnosis of UTI and sent home with Macrodantin however she did not fill the prescription and presented later that same night to [facility]'s emergency room where she received 2 g of Rocephin IV and a prescription for Keflex after evaluation diagnosis of likely urinary tract infection and medication for nausea. During this time she had nausea and some emesis. She did take the Keflex tablets. This evening she presents again because she is still feeling quite ill and this time she has had some fevers. She has again received another dose of 1 g Rocephin today. Of note is that her white count which was 1 8,000 on initial presentation to [place] emergency room is now 19,000 with a left shift and increased monocytes. I do have access to her lab work from [place] emergency room on the second when the urinalysis showed 10-25 WBCs 50-100 epithelial cells, 1+ bacteria and culture results is that 7 AM today June 15 shows presumptive E. coli with a colony count of 50-80,000 and sensitive to ceftriaxone. REVIEW OF SYSTEMS: She has felt generally unwell and with a lot of nausea with occasional emesis as well. She has no respiratory symptoms This morning she was having a lot of gagging. She has been eating and drinking very little. While she has not had a fever at home she sometimes feels a little chilled. The abdominal pain is mostly across her lower abdomen but also in her lower back. She has had diarrhea 4-5 times today. She denies any blood or mucus in the stool. She has felt her baby moving occasionally which is her normal pattern. The nausea and vomiting she has had is not out of proportion to her usual during the either. She denies noting any urinary frequency, urgency or dysuria. She does have some creamy whitish vaginal discharge again unchanged from before. She has had no abdominal surgeries Denies contraction type episodic pain, and there has been no leakage of fluid or vaginal bleeding She states she has been compliant with care and has had standard blood work and apelvic exam performed. ACTIVE PROBLEMS: (1) ([id number]) Medical and surgical history: She has a history of eye surgery. MEDICATIONS: Active Inpt Meds: cefTRIAXone Start: 06/15/24 14:43:00 EDT, Dose = 1 gram(s), IV Piggyback, qDay, Rate: 200 mL/hr, Infuse over: 30 minute(s), 0, 06/15/24 14:43:00 EDT metoclopramide Start: 06/15/24 15:00:00 EDT, Dose = 10 mg, = 1 tab(s), Oral, TID, 06/15/24 14:27:00EDT multivitamin, ( Multivitamins) Start: 06/15/24 14:27:00 EDT, Dose = 1 tab(s), Tab,Oral, qDay, 0, 06/15/24 14:27:00 EDT Active PRN Meds: acetaminophen (Tylenol) Start: 06/15/24 13:48:00 EDT, Dose = 650 mg, = 2 tab(s), Oral, q4h, PRN, Pain, scale 1-3, 06/15/24 13:48:00 EDT acetaminophen (Tylenol) Start: 06/15/24 13:48:00 EDT, Dose = 650 mg, = 2 tab(s), Oral, q4h, PRN, TEMP greater than 38.6 degrees Celsius, 06/15/24 13:48:00 EDT benzonatate (Tessalon Perles) Start: 06/15/24 13:48:00 EDT, Dose = 100 mg, = 1 cap(s), Oral, TID, PRN, Cough, 06/15/24 13:48:00 EDT calcium carbonate (Tums) Start: 06/15/24 13:48:00 EDT, Dose = 500 mg, = 1 tab(s), Chewed, TID, PRN,Heartburn, 06/15/24 13:48:00 EDT guaiFENesin Start: 06/15/24 13:48:00 EDT, Dose = 200 mg, = 10 mL, Oral, q4h, PRN, Cough, Liquid , 0, 06/15/24 13:48:00 EDT melatonin Start: 06/15/24 13:48:00 EDT, Dose = 6 mg, = 2 tab(s), Oral, qHS, PRN, Sleep, 06/15/24 13:48:00 EDT ondansetron (Zofran) Start: 06/15/24 13:48:00 EDT, Dose = 4 mg, = 2 mL, IV Push, q4h, PRN, Nausea/Vomiting, 06/15/24 13:48:00 EDT ondansetron Start: 06/15/24 14:27:00 EDT, Dose = 4 mg, = 1 tab(s), Oral, q6h, PRN, Nausea/Vomiting,0, 06/15/24 14:27:00 EDT One Time Meds: (Completed) Sodium Chloride 0.9% intravenous solution (Bolus NS 1000 mL) Start: 06/15/24 11:00:00 EDT, Dose = 1,000 mL, Soln, IV Bolus, Once, Stop: 06/15/24 11:00:00 EDT, Rate: 1,999 mL/hr, 06/15/24 10:51:00 EDT (Completed) metoclopramide (Reglan) Start: 06/15/24 11:00:00 EDT, Dose = 10 mg, = 2 mL, IV Push, Once, Stop: 06/15/24 11:00:00 EDT, 06/15/24 10:59:00 EDT (Completed) ondansetron (Zofran) Start: 06/15/24 11:00:00 EDT, Dose = 4 mg, = 2 mL, IV Push, Once, Stop: 06/15/24 11:00:00 EDT, 06/15/24 10:51:00 EDT Active IV Meds: Sodium Chloride 0.9% intravenous solution 1,000 mL (NS 1,000 mL) Start: 06/15/24 13:48:00 EDT, 24 hour(s), Stop date 06/16/24 13:47:00 EDT, Rate: 75 mL/hr, 06/15/24 13:48:00 EDT ALLERGIES: (1) Vicks Vapo Rub topical ointmen FAMILY HISTORY: N/P SOCIAL HISTORY: . She vapes. Denies marijuana or illicit drug use. PHYSICAL EXAM: VITALS: [id number](kg) 06/15 13:4737.9--[id number] 06/15 11:54----[id number] 06/15 10:3237.3--[id number] 24 Hr Tmax: 37.9 at 06/15 13:47 36 Hr Tmax: 37.9 at 06/15 13:47 Vital Signs are the last 5 in the past 48 hours. Weights display the last 5 within 7 days. Initial Wt: 06/15 107.1 kg 236 lb Current Wt: 06/15 107.1 kg 236 lb GENERAL: Young white female who looks uncomfortable but not toxic. She is well- nourished well-developed. She winces every time she moves and out on location spontaneously. HEENT: Normal except for very poor dentition with caries. CARDIOVASCULAR: Regular rate and rhythm with heart rate ranging from 9230 RESPIRATORY: Clear to auscultation ABDOMEN: Not distended. Soft, fundus is barely palpable. heart tones are noted at 150 bpm. Tenderness is elicited with palpation anywhere on her abdomen but worst in her right lower quadrant where most of the pain is referred. Heel bounce is positive in the right lower quadrant. The only areawhere there is possible rebound tenderness is in the right lower quadrant. Cervix is closed thick and high, and she is tender especially in the right fornix. EXREMETIES: Nontender, NEUROLOGICAL: Grossly normal PSYCHIATRIC: Affect is normal,she is cooperative , makes minimal eye contact and does look to her who is present to help with a lot of the history. LABS: 36hr Labs 06/15 1216 Bili Direct0.3H Bili Total0.9 Globulin3.5 Alk Phos58 A/G Ratio0.9L Total Protein6.7 ALT/SGPT21 Albumin Level3.2L AST/SGOT16 Bili Indirect0.6 Yhtnret72.1H PT International Ratio1.4 06/15 1059 Creatinine Lvl (s)0.47L Potassium Level3.4L Calcium Lvl8.7 Nnqpqliw413 Electrolyte Xhekhkr71.0 BUN/Creatinine Ratio11 Glucose Tfhdy177U BUN5L Sodium Cflcs466T CO223 Estimated Glomerular Filtrat>120 Lipase Xshhw10N WBC19.3H MCH30.1 RBC4.01L MCHC34.6 Hgb12.1 RDW12.9 Hct34.9 Emweiniu065 MCV87.1 MPV7.2 Basophil, Absolute0.0 Basophil %0.1 Neutrophil %90.0H Lymphocyte, Absolute0.8L Lymphocyte %4.2L Monocyte %5.6 Eosinophil, Absolute0.0 Eosinophil %0.1 Monocyte, Absolute1.1 Neutrophil, Havjbkuy94.4H Monocyte Distribution Width26.68H UA Specimen TypSee Flowsheet UA BiliSee Flowsheet UA UrobilinogenSee Flowsheet UA ColorSee Flowsheet UA KetonesSee Flowsheet UA NitriteSee Flowsheet UA AppearSee Flowsheet UA BloodSee Flowsheet UA pHSee Flowsheet UA GlucoseSee Flowsheet UA ProteinSee Flowsheet UA Leuk EstSee Flowsheet UA Spec GravSee Flowsheet DIAGNOSTICS: IMPRESSION: 1. Abdominal pain, worst in right lower quadrant-high suspicion for appendicitis or other such process unresponsive to the IV ceftriaxone & Keflex she has received to date. 2. 18-week 3. Questionable urinary tract infection with minimal response to IV ceftriaxone to which the cultured E. coli is sensitive. 4. Worsening leukocytosis and mildly elevated total bilirubin 5. Mildly abnormal electrolytes with dehydration. PT mildly elevated 6. No evidence of threatening PLAN: The patient was receiving IV fluids and had received more ceftriaxone by the time I saw. As the patient seems to be worsening despite treatment with antibiotics for the previously presumed UTI, doubtvery much this is the cause of her abdominal pain with the worst sites being the right lower quadrant. I am highly suspicious of acute appendicitis, even though her poor dentition could also account for the leukocytosis. She does have chills, malaise, and worsening white count which I would not expect for a chronic condition like gingivitis and caries. I think she would benefit from MRI which would have high sensitivity for an appendicitis. Ultrasound was not called in because I do not think this would be conclusive and in any case she would still need to be moved to the tertiary center should she be shown to have an appendicitis or mass/fluid collection suggestive of the same. MRI is not currently available to us here at [facility]. Digitally Signed by MARYJO ANNE MD on 06/15/2024 05:40 PM [facility]05-04-2025 Note Date of Service 06/15/2024 Chief Complaint Pt stated she continues to have abd pain after being seen two days ago in ED. pt at 18wks.came in for reevaluation. History of Present Illness Patient is a 19-year-old female, who has no primary care provider [facility] , presented to [facility] emergency department with the chief complaint of abdominal pain and nausea. Patient presented to [facility] on Sunday for abdominal pain and was diagnosed with UTI. She was prescribed Macrobid and discharged home. Patient states that she was concerned about taking Macrobid as she is 18 weeks and was not surethat it was safe for her baby. She states she did tell the ED providers that she was . She then presented to [facility] emergency department the same evening and was evaluated again for UTI. In the ED, she was given Ceftriaxone and discharged home on Keflex. Patient states that she has been taking the Keflex. She reports that she has diffuse abdominal pain and nausea. She denies any fever, chills, cough, shortness of breath, chest pain, or dysuria. In the emergency department, white blood cell count 19.3. CBC unremarkable. BMP significant for glucose 107, sodium 135, potassium 3.4, BUN 5 and creatinine 0.47. Patient was administered 1 liter of NS, 4 mg Zofran IV and 10 mg Reglan IV in the ED. The case was discussed with the ED physician who recommended admission for further monitoring. Patient was transferred to telemetry for further evaluation and treatment. We will consult kitchen bath designer for recommendations. We will check heart tones qshift. We will continue NS @ 75cc/hr. Continue Rocephin 1 gram IV daily. Continue antiemetics as needed. Repeat CBC and BMP in the am. Patient seen and evaluated while resting on bed on medical surgical unit. Physical exam unremarkable except for diffuse pain on light palpation of the abdomen. Patient states that her pain is worst in the RLQ, however, told nursing that the pain is worse in the midline. Will consult kitchen bath designer for further recommendation. Patient denies any vaginal bleeding. heart tones were checked in the ED and were in the 130's. All questions answered. Review of Systems Review of Systems: Reviewed in detail, including general health, HEENT, cardiovascular, respiratory, gastrointestinal, genitourinary, endocrine, musculoskeletal, neurologic, vascular, skin, and psychiatric. All are negative except for those listed in the History of Present Illness. Physical Exam Vitals and Measurements T: 37.9 C (Oral) TMIN: 37.3 C (Oral) TMAX: 37.9 C (Oral) HR: 108 RR: 18 BP: 137/65 SpO2: 96% HT: 177.8 cm WT: 107.1 kg BMI: 33.88 Weight Dosing Weight: 107.1 kg (06/15/24) Dosing Weight: 107.1 kg (06/15/24) General: No acute distress. Patient is alert and appropriate. Skin: No rash. Skin is warm, dry and intact. HEENT: Head is normocephalic, atraumatic. Pupils are equal, round and reactive. Neck: Supple. No lymphadenopathy, thyromegaly. Lungs: Bilaterally clear but diminished without crepitation or wheeze. Unlabored. Heart: Heart is regular rhythm, S1, S2. No murmurs, gallops or rubs. Abdomen: Abdomen is soft, tender to light palpation in all wheeler. Bowels sounds present in all quadrants. Extremities: No clubbing, cyanosis, or edema. Peripheral pulses palpable. No calf tenderness. Neurological: Patient is awake and alert to person, place and time. Following simple commands, moving all extremities. Lab Results 06/15 12:16 Protime: 16.1 H PT International Ratio: 1.4 06/15 10:59 WBC: 19.3 H Hgb: 12.1 Hct: 34.9 Platelet: 199 Neutrophil %: 90.0 H Glucose Level: 107 H Sodium Level: 135 L Potassium Level: 3.4 L BUN: 5 L Creatinine Lvl (s): 0.47 L Assessment/Plan 1. Abdominal pain Acute, new onset, unknown etiology. Will consult kitchen bath designer for recommendation. Consider abdominal ultrasound in the am. Patient has a significant leukocytosis and low grade fever. Her urinalysis appearsimproved from the 06/13 sample. Urine culture at that time was contaminated so not helpful. Continue Tylenol PRN for pain. 2. Nausea Acute on chronic. Continue IV antiemetics. 3. Patient is 18 weeks, follows with [facility] speeder hand. heart tones checked in ED and werein the 130's. Patient reportedly had an ultrasound recently that was normal. DVT prophylaxis with SCDs. Code status: Full Code. Labs, diagnostic test and progress notes reviewed as noted in HPI. Plan of care discussed with patient. All questions answered. Patient verbalizes understanding and is agreeable with plan of care. This case was discussed with collaborating physician, Dr. Wisam Spence. 73 minutes spent reviewing past diagnostic tests, reviewing lab results, vital sign trends, medicalhistory, reviewing medications and ordering home medications, examining patient, discussed plan of care with care team, collaborating with physician, and documenting in chart. Problem List/Past Medical History Ongoing Procedure/Surgical History No qualifying data available. Medications Home Medications (4) Active cephalexin 500 mg oral capsule 500 mg = 1 cap(s), Oral, q12h ondansetron 4 mg oral tablet, disintegrating 4 mg = 1 tab(s), PRN, Oral, q6h Multivitamins 1 tab(s), Oral, qDay Reglan 10 mg oral tablet 10 mg = 1 tab(s), Oral, TID Allergies Vicks Vapo Rub topical ointment Social History Alcohol Use: Never., 06/15/2024 Home/Environment Living situation: Home/Independent. Financial concerns: No., 06/15/2024 Nutrition/Health Type of diet: Regular., 06/15/2024 Sexual Sexually active: Yes., 06/15/2024 Substance Abuse Use: Never., 06/15/2024 Tobacco Nicotine Use: Never (less than 100 in lifetime)., 06/15/2024 Nicotine Use: denies., 06/13/2024 Family History Cancer: Grandparent. Diabetes: Father. Stroke: Father. Health Status Family Member(s) Immunizations No qualifying data available. Code Status Code Status - Ordered -- 06/15/24 12:17:00 EDT, Full Code, Constant Order Digitally Signed by ALEX TITUS on 06/15/2024 03:05 PM Digitally Signed by WISAM SPENCE MD [facility]05-04-2025 Evaluation + Plan noteExtracted from: Title:CONSULT NOTE Author:MARYJO ANNE MD Date: 06/15/24 [place] ADMISSION HISTORY AN D PHYSICIAL CHIEF COMPLAINT: Abdominal pain HISTORY OF PRESENT ILLNESS: This 19-year-old white female 1 estimated gestational age 18 weeks by her own report, has been receiving obstetric care from the [facility] obstetric service. She was well and had gone to work, when She left and presented to [facility] emergency room about 4 PM on 13 June due to general malaise with lightheadedness and nausea. He was evaluated and given a diagnosis of UTI and sent home with Macrodantin however she did not fill the prescription and presented later that same night to [facility]'s emergency room where she received 2 g of Rocephin IV and a prescription for Keflex after evaluation diagnosis of likely urinary tract infection and medication for nausea. During this time she had nausea and some emesis. She did take the Keflex tablets. This evening she presents again because she is still feeling quite ill and this time she has had some fevers. She has again received another dose of 1 g Rocephin today. Of note is that her white count which was 18,000 on initial presentation to [place] emergency room is now 19,000 with a left shift and increased monocytes. I do have access to her lab work from [place] emergency room on the second when the urinalysis showed 10-25 WBCs 50-100 epithelial cells, 1+ bacteria and culture results is that 7 AM today June 15 shows presumptive E. coli with a colony count of 50- 80,000 and sensitive to ceftriaxone. REVIEW OF SYSTEMS: She has felt generally unwell and with a lot of nausea with occasional emesis as well. She has no respiratory symptoms This morning she was having a lot of gagging. She has been eating and drinking very little. While she has not had a fever at home she sometimes feels a little chilled. The abdominal pain is mostly across her lower abdomen but also in her lower back. She has had diarrhea 4-5 times today. She denies any blood or mucus in the stool. She has felt her baby moving occasionally which is her normal pattern. The nausea and vomiting she has had is not out of proportion to her usual during the either. She denies noting any urinary frequency, urgency or dysuria. She does have some creamy whitish vaginal discharge again unchanged from before. She has had no abdominal surgeries Denies contraction type episodic pain, and there has been no leakage of fluid or vaginal bleeding She states she has been compliant with care and has had standard blood work and a pelvic exam performed. ACTIVE PROBLEMS: (1) ([id number]) Medical and surgical history: She has a history of eye surgery. MEDICATIONS: Active Inpt Meds: cefTRIAXone Start: 06/15/24 14:43:00 EDT, Dose = 1 gram(s), IV Piggyback, qDay, Rate: 200 mL/hr, Infuse over: 30 minute(s), 0, 06/15/24 14:43:00 EDT metoclopramide Start: 06/15/24 15:00:00 EDT, Dose = 10 mg, = 1 tab(s), Oral, TID, 06/15/24 14:27:00 EDT multivitamin, ( Multivitamins) Start: 06/15/24 14:27:00 EDT, Dose = 1 tab(s), Tab, Oral, qDay, 0, 06/15/24 14:27:00 EDT Active PRN Meds: acetaminophen (Tylenol) Start: 06/15/24 13:48:00 EDT, Dose = 650 mg, = 2 tab(s), Oral, q4h, PRN, Pain, scale 1-3, 06/15/24 13:48:00 EDT acetaminophen (Tylenol) Start: 06/15/24 13:48:00 EDT, Dose = 650 mg, = 2 tab(s), Oral, q4h, PRN, TEMP greater than 38.6 degrees Celsius, 06/15/24 13:48:00 EDT benzonatate (Tessalon Perles) Start: 06/15/24 13:48:00 EDT, Dose = 100 mg, = 1 cap(s), Oral, TID, PRN, Cough, 06/15/24 13:48:00 EDT calcium carbonate (Tums) Start: 06/15/24 13:48:00 EDT, Dose = 500 mg, = 1 tab(s), Chewed, TID, PRN, Heartburn, 06/15/24 13:48:00 EDT guaiFENesin Start: 06/15/24 13:48:00 EDT, Dose = 200 mg, = 10 mL, Oral, q4h, PRN, Cough, Liquid , 0, 06/15/24 13:48:00 EDT melatonin Start: 06/15/24 13:48:00 EDT, Dose = 6 mg, = 2 tab(s), Oral, qHS, PRN, Sleep, 06/15/24 13:48:00 EDT ondansetron (Zofran) Start: 06/15/24 13:48:00 EDT, Dose = 4 mg, = 2 mL, IV Push, q4h, PRN, Nausea/Vomiting, 06/15/24 13:48:00 EDT ondansetron Start: 06/15/24 14:27:00 EDT, Dose = 4 mg, = 1 tab(s), Oral, q6h, PRN, Nausea/Vomiting, 0, 06/15/24 14:27:00 EDT One Time Meds: (Completed) Sodium Chloride 0.9% intravenous solution (Bolus NS 1000 mL) Start: 06/15/24 11:00:00 EDT, Dose = 1,000 mL, Soln, IV Bolus, Once, Stop: 06/15/24 11:00:00 EDT, Rate: 1,999 mL/hr, 06/15/24 10:51:00 EDT (Completed) metoclopramide (Reglan) Start: 06/15/24 11:00:00 EDT, Dose = 10 mg, = 2 mL, IV Push, Once, Stop: 06/15/24 11:00:00 EDT, 06/15/24 10:59:00 EDT (Completed) ondansetron (Zofran) Start: 06/15/24 11:00:00 EDT, Dose = 4 mg, = 2 mL, IV Push, Once, Stop: 06/15/24 11:00:00 EDT, 06/15/24 10:51:00 EDT Active IV Meds: Sodium Chloride 0.9% intravenous solution 1,000 mL (NS 1,000 mL) Start: 06/15/24 13:48:00 EDT, 24 hour(s), Stop date 06/16/24 13:47:00 EDT, Rate: 75 mL/hr, 06/15/24 13:48:00 EDT ALLERGIES: (1) Vicks Vapo Rub topical ointmen FAMILY HISTORY: N/P SOCIAL HISTORY: . She vapes. Denies marijuana or illicit drug use. PHYSICAL EXAM: VITALS: GtqjqaInqqFMIrbitGKOjU4TGX1PifdJo(kg) 06/15 13:4737.9--[id number]/94347.1 06/15 11:54----[id number]/30601.1 06/15 10:3237.3--[id number] 24 Hr Tmax: 37.9 at 06/15 13:47 36 Hr Tmax: 37.9 at 06/15 13:47 Vital Signs are the last 5 in the past 48 hours. Weights display the last 5 within 7 days. Initial Wt: 06/15 107.1 kg 236 lb Current Wt: 06/15 107.1 kg 236 lb GENERAL: Young white female who looks uncomfortable but not toxic. She is well-nourished well-developed. She winces every time she moves and out on location spontaneously. HEENT: Normal except for very poor dentition with caries. CARDIOVASCULAR: Regular rate and rhythm with heart rate ranging from 9230 RESPIRATORY: Clear to auscultation ABDOMEN: Not distended. Soft, fundus is barely palpable. heart tones are noted at 150 bpm. Tenderness is elicited with palpation anywhere on her abdomen but worst in her right lower quadrant where most of the pain is referred. Heel bounce is positive in the right lower quadrant. The only area where there is possible rebound tenderness is in the right lower quadrant. Cervix is closed thick and high, and she is tender especially in the right fornix. EXREMETIES: Nontender, NEUROLOGICAL: Grossly normal PSYCHIATRIC: Affect is normal,she is cooperative , makes minimal eye contact and does look to her who is present to help with a lot of the history. LABS: 36hr Labs 06/15 1216 Bili Direct0.3H Bili Total0.9 Globulin3.5 Alk Phos58 A/G Ratio0.9L Total Protein6.7 ALT/SGPT21 Albumin Level3.2L AST/SGOT16 Bili Indirect0.6 Jauscnk52.1H PT International Ratio1.4 06/15 1059 Creatinine Lvl (s)0.47L Potassium Level3.4L Calcium Lvl8.7 Ctlgwcih968 Electrolyte Eratsxw16.0 BUN/Creatinine Ratio11 Glucose Euldi964J BUN5L Sodium Pnfmb134O CO223 Estimated Glomerular Filtrat>120 Lipase Nwalq47N WBC19.3H MCH30.1 RBC4.01L MCHC34.6 Hgb12.1 RDW12.9 Hct34.9 Uakmazsw222 MCV87.1 MPV7.2 Basophil, Absolute0.0 Basophil %0.1 Neutrophil %90.0H Lymphocyte, Absolute0.8L Lymphocyte %4.2L Monocyte %5.6 Eosinophil, Absolute0.0 Eosinophil %0.1 Monocyte, Absolute1.1 Neutrophil, Brzmajwk29.4H Monocyte Distribution Width26.68H UA Specimen TypSee Flowsheet UA BiliSee Flowsheet UA UrobilinogenSee Flowsheet UA ColorSee Flowsheet UA KetonesSee Flowsheet UA NitriteSee Flowsheet UA AppearSee Flowsheet UA BloodSee Flowsheet UA pHSee Flowsheet UA GlucoseSee Flowsheet UA ProteinSee Flowsheet UA Leuk EstSee Flowsheet UA Spec GravSee Flowsheet DIAGNOSTICS: IMPRESSION: 1. Abdominal pain, worst in right lower quadrant-high suspicion for appendicitis or other such process unresponsive to the IV ceftriaxone & Keflex she has received to date. 2. 18-week 3. Questionable urinary tract infection with minimal response to IV ceftriaxone to which the cultured E. coli is sensitive. 4. Worsening leukocytosis and mildly elevated total bilirubin 5. Mildly abnormal electrolytes with dehydration. PT mildly elevated 6. No evidence of threatening PLAN: The patient was receiving IV fluids and had received more ceftriaxone by the time I saw. As the patient seems to be worsening despite treatment with antibiotics for the previously presumed UTI, doubt very much this is the cause of her abdominal pain with the worst sites being the right lower quadrant. I am highly suspicious of acute appendicitis, even though her poor dentition could also account for the leukocytosis. She does have chills, malaise, and worsening white count which I would not expect for a chronic condition like gingivitis and caries. I think she would benefit from MRI which would have high sensitivity for an appendicitis. Ultrasound was not called in because I do not think this would be conclusive and in any case she would still need to be moved to the tertiary center should she be shown to have an appendicitis or mass/fluid collection suggestive of the same. MRI is not currently available to us here at [facility]. Extracted from: Title:History and Physical Author:ALEX TITUS APRN-LITHOGRAPH PRINTER Date:06/15/24 1. Abdominal pain Acute, new onset, unknown etiology. Will consult kitchen bath designer for recommendation. Consider abdominal ultrasound in the am. Patient has a significant leukocytosis and low grade fever. Her urinalysis appears improved from the 06/13 sample. Urine culture at that time was contaminated so not helpful. Continue Tylenol PRN for pain. 2. Nausea Acute on chronic. Continue IV antiemetics. 3. Patient is 18 weeks, follows with [facility] speeder hand. heart tones checked in ED and were in the 130's. Patient reportedly had an ultrasound recently that was normal. DVT prophylaxis with SCDs. Code status: Full Code. Labs, diagnostic test and progress notes reviewed as noted in HPI. Plan of care discussed with patient. All questions answered. Patient verbalizes understanding and is agreeable with plan of care. This case was discussed with collaborating physician, Dr. Wisam Spence. 73 minutes spent reviewing past diagnostic tests, reviewing lab results, vital sign trends, medical history, reviewing medications and ordering home medications, examining patient, discussed plan of care with care team, collaborating with physician, and documenting in chart. Diagnostic Tests Pending * CRP, High Sensitive 06/15/24 [facility] 05-04-2025 Evaluation + Plan noteExtracted from: Title:Clinical Document Author:DERRICK LIU MD Date:06/15/[address] [facility] Medicine Hospitalist History and Physical Date of Admission: patient is being admitted on June 15, 2024 Chief complaint: abdominal pain History of present illness: History is taken from talking with the patient as well as reviewing medical records. Patient was accepted as a transfer from [facility] by my colleague. Per the patient she has no past medical problems and is not on any chronic medications. The patient follows with [facility]ER UNLOADER at [facility] for her . Patient was recently diagnosed with a urinary tract infection and was given ceftriaxone in the emergency room and then discharged on Keflex. Patient returned to the emergency room due to having ongoing severe diffuse abdominal pain. She denies nausea or vomiting. Denies fevers, chills or night sweats. Since being admitted at [facility] the patient did have a fever of 37.9 otherwise is hemodynamically stable and 97% room air. The patient has an ongoing leukocytosis of 18.4 and also has a hemoglobin 11.9 sodium 135 potassium 3.4 LFTs within normal limits. The patient was evaluated by FREEZER UNLOADER today who felt like her abdominal pain was not secondary to the urinary tract infection. She was concerned that the patient might have appendicitis and therefore recommended that she be transferred here for an MRI to rule out appendicitis. Past medical history: Family history: Father: Diabetes; Stroke Grandparent: Cancer Social history: Denies smoking cigarettes or alcohol consumption Medications: Home Medications (4) Active cephalexin 500 mg oral capsule 500 mg = 1 cap(s), Oral, q12h ondansetron 4 mg oral tablet, disintegrating 4 mg = 1 tab(s), PRN, Oral, q6h Multivitamins 1 tab(s), Oral, qDay Reglan 10 mg oral tablet 10 mg = 1 tab(s), Oral, TID Allergies: Vicks Vapo Rub topical ointment Review of systems: See HPI for pertinent positives and negatives. All other review of systems have been reviewed and they are negative. Vitals Signs(Last 24 hrs)__Last Charted Minimum Maximum Temp36.9(JUNE 15 22:04)36.9(JUNE 15:04)36.9(JUNE 15:) Heart RateH 120(JUNE 15 22:04)H 120(JUNE 15 22:04)H 120(JUNE 15:04) IKM272(JUNE 15 22:04)114(JUNE 15 22:04)114(JUNE 15:04) DBPL 53(JUNE 15:04)L 53(JUNE 15:04)L 53(JUNE 15:04) Physical examination: HEENT: No Pallor, No Icterus Cardiac: RRR, No murmur Lungs: CTA, good air entry Abdomen: Soft, diffuse abdominal pain Musculoskeletal: No joint pains or swelling Extremities: No edema, good pulses Neurological: Alert, no deficits Skin: No rash, no nodules Labs: as mentioned in the HPI Assessment and plan: Patient was accepted as a transfer from [facility] by my colleague on June 15, 2024 due to concern for ongoing abdominal pain. Ongoing abdominal pain. Patient does require two midnight hospital stay due to having severe abdominal pain with fevers with a leukocytosis with concern for possible appendicitis in a patient. Will continue IV fluids. NPO after midnight. Will order an MRI per FREEZER UNLOADER recommendations. Will consult FREEZER UNLOADER for further recommendations and evaluation. Will check repeat labs in the morning. Patient cannot be treated outpatient as she would be high risk for decompensation especially since she is . Complicated urinary tract infection due to . Will get blood cultures. For now continue the patient on ceftriaxone. Anemia. Will monitor Hyponatremia, hypovolemia. Will give two more liters of IV fluids Hypokalemia. Replace as needed 18 weeks . Will consult FREEZER UNLOADER. Prophylaxis SCD in case of procedure Code status full code Future Appointments Appointment Date:07/04/2024 08:45:00 AM Scheduled Provider:MICHAEL LÓPEZ MD Location:[facility] S[facility] Appointment Type:[facility]OOKED [facility] Post Op [facility] 05-04-2025 Note. MICRO - Microbiology PROCEDURE: Urine Culture [O1 *1] SOURCE: Urine BODY SITE: COLLECTED DATE/TIME: 06/13/2024 23:02 EDT RECEIVED DATE/TIME: 06/14/2024 13:25 EDT START DATE/TIME: 06/14/2024 13:25 EDT FREE TEXT SOURCE: FINAL REPORTS Final Report [] Verified Date/Time/Personnel: 06/15/2024 09:59 EDT 10,000 - 50,000 cfu/ml Multiple bacterial morphotypes present. Probable Contamination. Suggest recollection if clinically indicated. PRELIMINARY REPORTS Preliminary Report [] Verified Date/Time/Personnel: 06/14/2024 13:59 EDT Specimen received in lab. Order Comments O1: Urine Culture Added by Discern Performing Locations *1: This test was performed at: [address], [address] , [facility]05-03-2025 Hospital Discharge instructions Patient Education 06/14/2024 01:49:13 Hyperemesis Gravidarum Hyperemesis Gravidarum Hyperemesis gravidarum is a severe form of morning sickness that can affect some women during . It may develop around the 5th week and last until the 16th week of . In some women, it may last longer. Symptoms include severe nausea and vomiting. This can lead to problems such as weight loss and dehydration. It's not clear what causes hyperemesis gravidarum. It may be from rising hormone levels early in the . It can be a serious threat to mother and fetus if symptoms are severe. Follow the advice below carefully. If your symptoms don't get better with home care measures, you may need to stay in the hospital. In the hospital, you may get IV (intravenous) fluids and medicines. Home care Diet Keep a log of the foods you eat and how they affect your symptoms. Don't eat foods that trigger your symptoms. Eat small meals often throughout the day rather than 3 large meals. This can help keep your stomachfrom being empty. An empty stomach can make nausea worse. Choose foods that are high in carbohydrates. Eating foods high in protein may also help. Limit greasy or spicy foods. Before getting out of bed in the morning, try eating crackers or dry toast. This may help settle your stomach. Drink cold, clear liquids. Drinking small amounts of liquids with electrolytes, such as sports drinks, may help as well. Medicine If needed, your healthcare provider may prescribe certain medicines to help ease nausea and vomiting. Your provider may suggest vitamin B6 and trent. Don t try any vjjh-arr-ozfhswe medicines or homeremedies without talking with your provider first. Follow-up care Follow up with your healthcare provider, or as advised. When to seek medical advice Call your healthcare provider right away if any of these occur: Signs of dehydration. These include dry mouth, extreme thirst, dark urine or little urine output, dizziness, weakness, or fainting. Vomiting that won t stop Inability to keep down liquids Frequent diarrhea Weight loss or no weight gain over a 2-week period Severe constant pain in the lower right abdomen Fever of 100.4 F (38 C) or higher, or as directed by your healthcare provider [id number] [employer]. [address] [place] [address]. All rights reserved. This information is not intended as a substitute for professional medical care. Always follow yourhealthcare professional's instructions. Follow Up Care 06/13/2024 22:43:54 With:MICHAEL ALVAREZ DO Address: [address] [place] [address] [phone] When:2-4 days With:Call Physician Referral Address:Unknown When:2-4 days [facility] 05-03-2025 Emergency department Discharge summary Discharge Instructions Thank you for allowing [place] to assist you with your healthcare needs. The following is importantdischarge information regarding your hospital visit. Diagnosis from Today's Visit Hyperemesis gravidarum What to Do Next Instructions from Your Care Team No qualifying data available. Post Acute Orders No qualifying data available. You Need to Schedule the Following Appointments Follow Up with MICHAEL ALVAREZ DO When:Within 2-4 days Where:[address] [place] [address]- [phone] Follow Up with Call Physician Referral When:Within 2-4 days Allergies Vicks Vapo Rub topical ointment Medications Please ask your primary doctor or pharmacist before taking any other medication not listed, including over the counter drugs, herbal medications, vitamins and or supplements as they may interact withyour home medications. What How Much When Instructions Last Dose New cephalexin (cephalexin 500 mg oral capsule) 1 cap by mouth Every 12 hours Duration: 7 Days Printed Prescription New metoclopramide (Reglan 10 mg oral tablet) 1 tab(s) by mouth Three (3) times a day Duration: 7 Days Printed Prescription New ondansetron (ondansetron 4 mg oral tablet, disintegrating) 1 tab(s) by mouth Every 6 hours as needed for Nausea/Vomiting Duration: 4 Days Printed Prescription Please take this list to your next doctor s visit. Bring all medications you take, including over the counter medications, herbals and other supplements with you to your doctor s visit. Patients and families are reminded to discard old lists and to update any records with all medication providers or retail pharmacies. Education Materials Hyperemesis Gravidarum Hyperemesis gravidarum is a severe form of morning sickness that can affect some women during . It may develop around the 5th week and last until the 16th week of . In some women, it may last longer. Symptoms include severe nausea and vomiting. This can lead to problems such as weight loss and dehydration. It's not clear what causes hyperemesis gravidarum. It may be from rising hormone levels early in the . It can be a serious threat to mother and fetus if symptoms are severe. Follow the advice below carefully. If your symptoms don't get better with home care measures, you may need to stay in the hospital. In the hospital, you may get IV (intravenous) fluids and medicines. Home care Diet Keep a log of the foods you eat and how they affect your symptoms. Don't eat foods that trigger your symptoms. Eat small meals often throughout the day rather than 3 large meals. This can help keep your stomachfrom being empty. An empty stomach can make nausea worse. Choose foods that are high in carbohydrates. Eating foods high in protein may also help. Limit greasy or spicy foods. Before getting out of bed in the morning, try eating crackers or dry toast. This may help settle your stomach. Drink cold, clear liquids. Drinking small amounts of liquids with electrolytes, such as sports drinks, may help as well. Medicine If needed, your healthcare provider may prescribe certain medicines to help ease nausea and vomiting. Your provider may suggest vitamin B6 and trent. Don t try any nezl-hfk-yvavydz medicines or homeremedies without talking with your provider first. Follow-up care Follow up with your healthcare provider, or as advised. When to seek medical advice Call your healthcare provider right away if any of these occur: Signs of dehydration. These include dry mouth, extreme thirst, dark urine or little urine output, dizziness, weakness, or fainting. Vomiting that won t stop Inability to keep down liquids Frequent diarrhea Weight loss or no weight gain over a 2-week period Severe constant pain in the lower right abdomen Fever of 100.4 F (38 C) or higher, or as directed by your healthcare provider [id number] [employer]. [address] [place] [address]. All rights reserved. This information is not intended as a substitute for professional medical care. Always follow yourhealthcare professional's instructions. Additional Information VACCINATE! IT SAVES LIVES! Members of the community who have not yet received the COVID-19 vaccine and would like to receive it can visit one of [facility] vaccine clinics. There are many vaccine clinic locations within the [facility]. For locations and available times, please visit [email or web address] It is important to note that some COVID mobile vaccine clinics are held outdoors and may be canceled in rainy or stormy conditions. To learn more about pediatric vaccinations (ages 5-11), we invite you to visit the [facility] webpage. [email or web address] learn more about the COVID-19 vaccine, we invite you to visit the CDC website for a list of frequently asked questions. https://www.cdc.gov/coronavirus/2019-ncov/vaccines/faq.html [place] [facility] Patient Portal Access Instructions: Stay connected with your healthcare team and access your personal medical information anytime with the [facility] Patient Portal. If you would like a full copy of your medical records please contact the [facility] Medical Records Department Sunday through Sunday between 8a.m. and 4:30p.m. Please follow the directions below to access the portal: 1.Access the email account you provided upon registration to the [facility].2.Look for an invitation email from [facility].3.Open the email and access the invitation link: Accept Invitation to [facility]4.Fill in the required wheeler to create your account. Sign into [email or web address] with your username and password that you created in the above steps to stay up to date. You can then view a summary of results, a summary of your visits, and the ability to download your summaries to your computer or send the information securely to a physician. Remember that your healthcare information is confidential, so carefully consider who you will allow to register on the [facility] Patient Portal for access to your information. You can also access the [facility] Patient Portal on the [employer] matteo. Simply click on Health Records under [employer] and then click on the [employer] logo. HOW TO SAFELY DISPOSE OF PRESCRIPTION MEDICATIONS Please use one of the following methods to safely dispose of your unused medications. 1.Use a drug disposal kit: the drug disposal pouch allows you to safely discard your old and unuseddrugs. Ask your nurse to give you one when you are discharged.2.Visit a local take-back location: Many local pharmacies and police departments have programs that collect old and unwanted prescriptiondrugs. Call your local pharmacy or go to http://bit.ly/6U9Dq1i to find one close to you.3.Make use of household items: Use cat litter or old coffee grounds to dispose medications if other options arenot available. Mix your drugs with these household products, seal them in an airtight container andthrow it into the garbage. Call [facility]: [phone] to be sure your drugs can be disposed of in this way. Some medicines may require a different approach.4.Never flush your medications down the toilet. IF YOU HAVE BEEN PRESCRIBED AN OPIOIDS FOR PAIN If you have been prescribed an opioid (such as hydrocodone, oxycodone or morphine), it is critical to understand the possible side effects and risks of opioid pain medications. Even when taken as directed, opioids can have several side effects including: Tolerance, meaning you might need to take more of a medication for the same pain relief. Nausea, vomiting and/or constipation. Sleepiness, dizziness, dry mouth, confusion, depression or itching. Physical dependence, meaning you have withdrawal symptoms when a medication is stopped ? this can develop within a few days. KNOW YOUR RESPONSIBILITIES It is important to know exactly how much and how often to take the opioid pain medications you are prescribed. Never take opioids in higher amounts or more often than prescribed. Do not combine opioids with alcohol or other drugs that cause drowsiness, such as benzodiazepines, also known as benzos,including diazepam and alprazolam, muscle relaxants or sleep aids. Never sell or share prescriptionopioids. This is illegal. Store opioids in a secure place and out of reach of others (including children, family, friends and visitors). The last page(s) of this document has been signed and retained as a CHART COPY Signatures Patient Education Materials Hyperemesis Gravidarum Medication Leaflets My discharge plan and instructions have been reviewed and explained to me and I,KIM NGUYEN understand my current condition and have read and understand these discharge instructions. I have received a written copy of the plan/instructions. If I have questions, I am aware that I should contact my doctor. 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: Date/Time: Relationship to Patient: Witness Name/Signature: Date/Time: [facility]03-27-2025 Telephone encounter Note* Telephone Encounter - Heather Luis RN - 05/08/2024 10:32 AM EDT 1st risk assessment form submitted 05/08/24 Heather Luis RN [facility]03-27-2025 Miscellaneous Notes* Telephone Encounter - Heather Luis RN - 05/08/2024 10:32 AM EDT 1st risk assessment form submitted 05/08/24 Heather Luis RN documented in this encounterK[facility] Instructions* Patient Instructions* Estephania Mayo LPN - 05/06/2024 8:05 AM EDT Please select the following link to access the [facility] Your Guide to a Healthy . [email or web address] documented in this encounterK[facility]03-[facility]25 NoteHNO ID: [id number] Author: MONA JEFFERSON APRN.LITHOGRAPH PRINTER Service: ? Author Type: Nurse Practitioner Type: Progress Notes Filed: 05/06/2024 08:57 Note Text: Patient declined vp foundation. *Patient is 12 weeks 3 days by dates. States she was seen at the care center and her EDC was confirmed as 02/08/2024. States a small subchorionic hematoma was seen. Patient denies any bleeding or pain this . *Vaping nicotine with flavoring. Discussed risks of vaping during and encouraged patient to quit. Patient is complaining of nausea in . Dietary considerations discussed . Vitamin B6 recommended. Advised patient to call/come in if she is unable to keep any food or fluids down in a 24-hour period. *Patient states she does have asthma. She states that she occasionally has some shortness of breath but does not have an inhaler. Advised patient to call PCP to have inhaler refilled. *Patient considering genetic carrier screening testing and aneuploidy screening. Discussed time limitations regarding nuchal ultrasound. Contact information for integrated genetics and [facility] labs sent to patient to check on insurance coverage. INITIAL OB ASSESSMENT HPI: Kim is a 19 year old White here to establish Obstetrical Care. Patient's last menstrual period was 02/08/2024 (exact date). from OB Dating Form. was planned Complaints: (!) Shortness of breath (sob with asthma at times) OB History Gravida1 Para0 Term0 Preterm0 AB0 Living0 SAB0 IAB0 Ectopic0 Multiple0 Live Births0 Previous history: Prior : never History of 4th degree laceration: No History of shoulder dystocia: No History of Hypertensive disorders including pre-eclampsia or gestational hypertension: No History of gestational diabetes: No Patient's Risk Screening for delivery: Have you had a prior cedillo between 20w and 36w6d? No How many pregnancies have you had before? 0 Did you have a previous baby with a GBS Infection? No Please select all that apply for any prior : N/A MEDICAL/PSYCHOSOCIAL HISTORY: History of hemorrhage or bleeding concerns: No Thyroid Disease: No History of chronic hypertension: No History of pre-existing diabetes: No No results found for: ABORHD BMI 36.44 kg/(m2) Last Pap: History of abnormal pap: No Prior treatment for cervical dysplasia: none. Last HPV: History of STDs: None Partner History of STDs: None Did you have a partner with Herpes? No Tobacco use: No E-Cigarette/Vaping Use: No Caffeine use: yes, drinks decaffeinated soda-4 Drug use: No Alcohol use: No Multivitamin with Folic acid: Yes Would refuse blood transfusion if medically necessary: No Social Needs: How often does this describe you? I don't have enough money to pay my bills: Sometimes Within the past 12 months, have you worried that your food would run out before you had money to buy more? Never In the past 12 months, has lack of reliable transportation kept you from going to medical appointments or work, or from getting things needed for daily living? Never In the past 12 months, have you had any concerns about having a place to live, or about the condition or quality of your housing? Never Would you like more information on any of the following (please check all that apply)? Centering (group care classes) Social History: Do you have any history of depression, anxiety, PTSD, or other mood problems? No Do you have a history of abuse or trauma that may impact your experience? No Are you currently employed? Yes Depression/Anxiety Screening: denies symptoms of depression. OB Depression and Anxiety Screening- This Encounter (since 05/05/2024) Over the past 2 weeks have you felt down, depressed, or hopeless? Negative Over the past two weeks, have you felt little interest or pleasure in doing things?? Negative Feeling nervous, anxious or on edge 0-Not at all Not being able to stop or control worrying 0-Not al all Anxiety Pre-Screening Total (If >/= 3 additional questions will be reviewed) 0 Genetic Screening: Partner present: Yes Patient verbalized knowledge of partner family health history: Yes Do you or your partner have any personal or family history of defects not previously discussed: No Do you have history of a complicated by anomaly, genetic condition, or demise: No Preeclampsia Risk Screening: Screening for prevention of preeclampsia: High risk factors: None Moderate risk ractors: Nulliparity and Obesity (body mass index greater than 30) OB Risk Screening: Completed, no positive findings documented. Marital Status: Partner: Name: Jimbo Age: 19 Occupation: [employer] work Gender: Male PAST MEDICAL HISTORY Diagnosis Date ADHD (attention deficit hyperactivity disorder) Asthma PAST SURGICAL HISTO (more content not included)...[facility] 05-05-2024 History of Present illness Narrative* Mona Jefferson APRN.LITHOGRAPH PRINTER - 05/05/2024 1:58 PM EDT Patient declined vp foundation. *Patient is 12 weeks 3 days by dates. States she was seen at the care center and her EDC was confirmed as 02/08/2024. States a small subchorionic hematoma was seen. Patient denies any bleeding or pain this . *Vaping nicotine with flavoring. Discussed risks of vaping during and encouraged patient to quit. Patient is complaining of nausea in . Dietary considerations discussed . Vitamin B6 recommended. Advised patient to call/come in if she is unable to keep any food or fluids down in a 24-hourperiod. *Patient states she does have asthma. She states that she occasionally has some shortness of breathbut does not have an inhaler. Advised patient to call PCP to have inhaler refilled. *Patient considering genetic carrier screening testing and aneuploidy screening. Discussed time limitations regarding nuchal ultrasound. Contact information for [facility] and [facility] labs sent to patient to check on insurance coverage. INITIAL OB ASSESSMENT HPI: Kim is a 19 year old White here to establish Obstetrical Care. Patient's last menstrual period was 02/08/2024 (exact date). from OB Dating Form. was planned Complaints: (!) Shortness of breath (sob with asthma at times) OB History Gravida1 Para0 Term0 Preterm0 AB0 Living0 SAB0 IAB0 Ectopic0 Multiple0 Live Births0 Previous history: Prior : never History of 4th degree laceration: No History of shoulder dystocia: No History of Hypertensive disorders including pre-eclampsia or gestational hypertension: No History of gestational diabetes: No Patient's Risk Screening for delivery: Have you had a prior cedillo between 20w and 36w6d? No How many pregnancies have you had before? 0 Did you have a previous baby with a GBS Infection? No Please select all that apply for any prior : N/A MEDICAL/PSYCHOSOCIAL HISTORY: History of hemorrhage or bleeding concerns: No Thyroid Disease: No History of chronic hypertension: No History of pre-existing diabetes: No No results found for: ABORHD BMI 36.44 kg/(m^2) Last Pap: History of abnormal pap: No Prior treatment for cervical dysplasia: none. Last HPV: History of STDs: None Partner History of STDs: None Did you have a partner with Herpes? No Tobacco use: No E-Cigarette/Vaping Use: No Caffeine use: yes, drinks decaffeinated soda-4 Drug use: No Alcohol use: No Multivitamin with Folic acid: Yes Would refuse blood transfusion if medically necessary: No Social Needs: How often does this describe you? I don't have enough money to pay my bills: Sometimes Within the past 12 months, have you worried that your food would run out before you had money to buy more? Never In the past 12 months, has lack of reliable transportation kept you from going to medical appointments or work, or from getting things needed for daily living? Never In the past 12 months, have you had any concerns about having a place to live, or about the condition or quality of your housing? Never Would you like more information on any of the following (please check all that apply)? Centering (group care classes) Social History: Do you have any history of depression, anxiety, PTSD, or other mood problems? No Do you have a history of abuse or trauma that may impact your experience? No Are you currently employed? Yes Depression/Anxiety Screening: denies symptoms of depression. OB Depression and Anxiety Screening- This Encounter (since 05/05/2024) Over the past 2 weeks have you felt down, depressed, or hopeless? Negative Over the past two weeks, have you felt little interest or pleasure in doing things? Negative Feeling nervous, anxious or on edge 0-Not at all Not being able to stop or control worrying 0-Not al all Anxiety Pre-Screening Total (If >/= 3 additional questions will be reviewed) 0 Genetic Screening: Partner present: Yes Patient verbalized knowledge of partner family health history: Yes Do you or your partner have any personal or family history of defects not previously discussed: No Do you have history of a complicated by anomaly, genetic condition, or demise: No Preeclampsia Risk Screening: Screening for prevention of preeclampsia: High risk factors: None Moderate risk ractors: Nulliparity and Obesity (body mass index greater than 30) OB Risk Screening: Completed, no positive findings documented. Marital Status: Partner: Name: Jmibo Age: 19 Occupation: [employer] work Gender: Male PAST MEDICAL HISTORY Diagnosis Date ADHD (attention deficit hyperactivity disorder) Asthma PAST SURGICAL HISTORY Procedure Laterality Date EYE SURGERY HX lazy eye Current Outpatient Medications Medication Sig Dispense Refill VIT 4-EMFL-UTVFI-DHA ORAL Take by mouth. pyridoxine HCl, vitamin B6, (PYRIDOXINE ORAL) Take by mouth. ferrous sulfate (IRON) 325 mg (65 mg iron) tablet Take 325 mg by mouth. folic acid 400 mcg tablet Take 400 mcg by mouth once daily. aspirin, enteric coated (ECOTRIN LOW STRENGTH) 81 mg EC tablet Take 1 tablet by mouth once daily. 90 tablet 3 Sulfacetamide Sodium, Acne, 10 % susp APPLY A THIN LAYER TO THE FACE 1-2 TIMES DAILY No current facility-administered medications for this visit. Allergies As of Date: 05/06/2024 Allergen Noted Reaction CAMPHOR 09/18/2018 Other: See Comments EUCALYPTUS 09/18/2018 Other: See Comments MENTHOL 09/18/2018 Other: See Comments PETROLATUM,WHITE 09/18/2018 Other: See Comments TURPENTINE 11/28/2021 Other: See Comments VICKS VAPORUB [[id number]*04/22/2019 Intolerance Fully Assessed 05/06/2024 Does patient have penicillin allergy: No REVIEW OF SYSTEMS: GENERAL: Negative for: Fever or Chills HEENT: Negative for: Headache, Impaired Vision, Ringing in Ears, Nosebleeds NECK: Negative for: Swelling, Pain, Stiffness RESPIRATORY: Negative for: Cough, Shortness of breath, Wheezing GASTROINTESTINAL: Negative for: Heartburn, Constipation, Diarrhea, Blood in stool, Vomiting MUSCULOSKELETAL: Negative for: Muscle or joint pain, stiffness, Joint swelling NEUROLOGIC/PSYCHIATRIC: Negative for: Weakness, Paralysis, Numbness, Tingling, Tremor, Anxiety, Depression, Memory loss SKIN: Negative for: Rash, Itching GENITOURINARY: Negative for: vaginal itching, vaginal discharge, hematuria or dysuria SENSITIVE EXAM: The sensitive examination was discussed with the Patient or Patient's Authorized Fruit I Farmworker. As applicable, any other physician, advance practice provider, medical student, or other health professional student that will be observing or involved in the sensitive examination for educational or training purposes was discussed with the Patient or Authorized Fruit I Farmworker. The Patient or Authorized Fruit I Farmworker has agreed to proceed with the sensitive examination. (Sensitive examination includes inspection and/or palpation of the breasts, pelvis, prostate and anorectal regions). PHYSICAL EXAM: BP 126/78 Ht 5' 8.386 (1.74m) Wt 242 lb 6.4 oz (110.0kg) LMP 02/08/2024 BMI 36.44 kg/(m^2). GENERAL: pleasant in no apparent distress DERMATOLOGY: Normal, without lesions, non-icteric, and non-hirsute NECK: Supple, full range of motion, no adenopathy, and thyroid normal CHEST: Normal inspiratory effort BREAST: soft, non-tender, symmetric, no dominant mass, normal nipple-areolar complex, no lymphadenopathy, and no nipple discharge ABDOMEN: soft, non-tender, and no masses NEURO: alert and oriented x3,exam grossly non-focal PELVIS: External genitalia normal without lesions. Perineal body intact. No vaginal or cervical lesions. Cervix closed. No adnexal masses or tenderness. Clinical Pelvimetry: Pelvimetry clinically assessed as adequate Limited OB ultrasound exam: not performed SBIRT Kim Nguyen was given the 4P's screening tool. Kim answered No to all the questions, the result is determined to be negative. ASSESSMENT: 19 year old at 12w4d wks gestational age PLAN: 1) Patient oriented to practice. Patient given new OB orientation folder. Discussed nutrition, folic acid supplementation, dietary guidelines, exercise, smoking, alcohol, caffeine, and drug use. Discussed gestational weight gain guidelines. Discussed routine OB labs including STD/HIV. Discussed how to access Your guide to a health and the [employer] [place]. Reviewed midwifery and automatic casting machine operator services that are available. 2) Screening: Hemoglobin A1C: ordered Baby Aspirin: The patient has been counseled about the potential benefits of low dose aspirin in and our recommendation that this be offered to all patients, regardless of whether they meet the high risk criteria specified above. She Accepts Aneuploidy Screening: Discussed aneuploidy screening, nuchal translucency/first trimester early anatomy ultrasound and NIPT. The risks/benefits and limitations of NIPT/aneuploidy screening were reviewed including the potential for false negative and false positive results. The availability of genetic counseling was reviewed. Information on aneuploidy screening was provided. The patient chooses toproceed with First trimester early anatomy ultrasound (12-13w6d) and NIPT (10 weeks) Myriad Carrier Screening: Discussed myriad carrier screening. We discussed the availability of professional-society guided carrier screening and reviewed the conditions screened and limitations of screening. The availability of genetic counseling was reviewed. Information on carrier screening was provided. The patient Declines 3) Patient offered option of Virtual Visits. Patient unsure. May consider in future. 4) Obesity (BMI >30), will order early glucose screen or Hemoglobin A1C. Current tobacco use: The patient has been counseled about the risks of tobacco use during pregnancyand cessation has been recommended. Resources for cessation and risks of smoking have been provided. Follow up in 1 weeks or sooner timothy. Mona Jefferson APRN.LITHOGRAPH PRINTER documented in this encounterK[facility] NoteHNO ID: [id number] Author: CÉSAR JOSHI MD Service: ? Author Type: Physician Type: Progress Notes Filed: 08/27/2023 09:04 Note Text: Kim is a 18 year old who presents for Nexplanon removal for presence for 4 years. UNIVERSAL PROTOCOL / SAFETY CHECKLIST Procedure to be Performed: Nexplanon removal Sign In: A Moment of CARE was completed. Personnel directly involved with the procedure wore the appropriate PPE (Personal Protective Equipment). Patient/Surrogate Stated/Verified: PATIENT VERIFIED(optional for EMERGENT procedures): Patient name, Date of , Relevant allergies, and The intended procedure Time Out Communication: Intended patient and procedure match the source documents. Consent documented and matches the intended procedure. Correct side/site marked and visible. Sign Out: SIGN OUT (optional for EMERGENT procedures): device removed intact, shown to patient and discarded TECHNIQUE: Patient placed in supine position with right arm bent at the elbow and placed over the head. Skin cleansed with betadine. 1mL of 1% lidocaine injected subQ along insertion site. Scalpel used to made a 5mm stab incision superficially at distal end of Nexplanon. Device removed under sterile technique with a small hemostat. Sterile pressure dressing applied. AANDP: 18 year old here for Nexplanon removal Nexplanon removed intact without difficulty. The patient was instructed to remove the dressing after 24 hours. Contraceptive plans taking a break from contraception and will use condoms César Joshi [facility]07-15-2024 History of Present illness Narrative* César Joshi MD - 08/27/2023 8:26 AM EDT Kim is a 18 year old who presents for Nexplanon removal for presence for 4 years. UNIVERSAL PROTOCOL / SAFETY CHECKLIST Procedure to be Performed: Nexplanon removal Sign In: A Moment of CARE was completed. Personnel directly involved with the procedure wore the appropriate PPE (Personal Protective Equipment). Patient/Surrogate Stated/Verified: PATIENT VERIFIED(optional for EMERGENT procedures): Patient name, Date of , Relevant allergies, and The intended procedure Time Out Communication: Intended patient and procedure match the source documents. Consent documented and matches the intended procedure. Correct side/site marked and visible. Sign Out: SIGN OUT (optional for EMERGENT procedures): device removed intact, shown to patient and discarded TECHNIQUE: Patient placed in supine position with right arm bent at the elbow and placed over the head. Skin cleansed with betadine. 1mL of 1% lidocaine injected subQ along insertion site. Scalpel used to made a 5mm stab incision superficially at distal end of Nexplanon. Device removed under sterile technique with a small hemostat. Sterile pressure dressing applied. A&P: 18 year old here for Nexplanon removal Nexplanon removed intact without difficulty. The patient was instructed to remove the dressing after 24 hours. Contraceptive plans taking a break from contraception and will use condoms César Joshi MD documented in this encounterK[facility]01-04-[facility] History of Present illness Narrative* William Hinton APRN.LITHOGRAPH PRINTER - 02/15/2022 6:04 PM EST Images from the original note were not included. Subjective HPI Nontoxic-appearing female presents urgent care chief complaint right eyelid injury. Duration of symptom few minutes prior to arrival. Patient states she was laying on her couch when her her right eyelid. Patient states initially she did have some blurred vision that since subsided. Presents today for evaluation. Denies any OTC medications. Did wash wound prior to arrival. Denies any blurred vision contact lens use flashes light fluid or eye pain. Past medical history prescription medication useallergies reviewed. Denies chance of is not breast-feeding. .Patient presents with: Trauma: Scratch on right eye lid PAST MEDICAL HISTORY Diagnosis Date ADHD (attention deficit hyperactivity disorder) Asthma PAST SURGICAL HISTORY Procedure Laterality Date EYE SURGERY HX ALLERGIES Vicks Vaporub [Hnezp-Xnhhxbjf-Uqf-Turp-Pet] MEDICATIONS VITAMIN B-2 100 mg tab melatonin 10 mg tab Take by mouth. magnesium oxide (MAG-OX) 400 mg (241.3 mg magnesium) tablet Take 1 tablet by mouth once daily. ketoconazole (NIZORAL) 2 % shampoo WASH THE SCALP DAILY AND ALLOW TO SIT ON THE SCALP FOR 5 MINUTESPRIOR TO RINSING Sulfacetamide Sodium, Acne, 10 % susp APPLY A THIN LAYER TO THE FACE 1-2 TIMES DAILY atomoxetine (STRATTERA) 40 mg capsule etonogestrel (NEXPLANON) subdermal implant 68 mg 1 Each by SUBDERMAL route as directed. albuterol HFA (PROVENTIL HFA, VENTOLIN HFA) 90 mcg/actuation inhaler Inhale 2 Puffs as instructed. amoxicillin-clavulanic acid (AUGMENTIN) 875-125 mg per tablet Take 1 tablet by mouth twice daily for 3 days. spironolactone (ALDACTONE) 100 mg tablet TAKE 1 TABLET BY MOUTH AT THE SAME TIME NIGHTLY WITH WATER(Patient not taking: Reported on 02/15/2022) FAMILY HISTORY Problem Relation Age of Onset Diabetes Father No Known Problems Half-sister No Known Problems Brother No Known Problems Brother Social History Tobacco Use Smoking status: Never Smokeless tobacco: Never Vaping Use Vaping Use: Never used Substance Use Topics Alcohol use: Never Drug use: Never BP 100/64 Pulse 101 Temp 36.9 C (98.5 F) Resp 20 Wt 102 kg (224 lb 12.8 oz) LMP (LMP Unknown) SpO2 99% Review of Systems Constitutional: Negative for chills, fever and malaise/fatigue. HENT: Negative for congestion, ear discharge, ear pain, sinus pain and sore throat. Eyes: Negative for blurred vision, double vision, photophobia, pain, discharge and redness. Respiratory: Negative for cough, hemoptysis, sputum production, shortness of breath, wheezing and stridor. Cardiovascular: Negative for chest pain. Gastrointestinal: Negative for abdominal pain, diarrhea, nausea and vomiting. Musculoskeletal: Negative for myalgias. Skin: Negative for itching and rash. Neurological: Negative for dizziness and headaches. Objective Physical Exam Constitutional: General: She is not in acute distress. Appearance: She is not diaphoretic. HENT: Head: Normocephalic. Mouth/Throat: Pharynx: No posterior oropharyngeal erythema. Eyes: Conjunctiva/sclera: Conjunctivae normal. Pupils: Pupils are equal, round, and reactive to light. Comments: Well approximated laceration noted highlighted area right eye. Does not extend deeply into the subcutaneous tissue. Is not a through and through wound. Visual acuity unchanged. Cardiovascular: Rate and Rhythm: Normal rate and regular rhythm. Heart sounds: Normal heart sounds. Pulmonary: Effort: Pulmonary effort is normal. No tachypnea, accessory muscle usage or respiratory distress. Breath sounds: Normal breath sounds. No stridor. Abdominal: Palpations: Abdomen is soft. Tenderness: There is no abdominal tenderness. Musculoskeletal: Cervical back: Normal range of motion and neck supple. No rigidity or tenderness. Lymphadenopathy: Cervical: No cervical adenopathy. Skin: General: Skin is warm and dry. Neurological: Mental Status: She is alert and oriented to person, place, and time. Area was investigated for foreign bodies none noted. Laceration did not extend through eyelid. [place] cleansed with antimicrobial scrub and tap water. Area was irrigated. ASSESSMENT/PLAN: 1. Right eyelid laceration, initial encounter - ICD9: 870.8, ICD10: S01.111A Area was copiously cleaned. 50% of wound was covered with Dermabond. Risk versus benefit was discussed with patient. Be placed on Augmentin prophylactically. Patient was educated on supportive therapies. Follow-up with PCP in 1 to 2 days for wound reevaluation. Please prompt reevaluation discussed.Patient was instructed to immediately proceed to emergency room for any new, worsening, or symptomslasting longer than anticipated. The patient's clinical presentation is otherwise unremarkable at this time. Based on exam and clinical finding, the patient is stable for discharge. Plan of care was discussed with patient. Patient verbalizes understanding and agrees to plan of care. This note was ge nerated using GigsTime software. It may contain errors in wording, punctuation, or spelling. William Hinton APRN.DONYA documented in this encounterK[facility]04-04-2022 Instructions* Patient Instructions* Sonia Garza PA-C - 05/16/2021 1:39 PM EDT SORE THROAT INSTRUCTIONS SORE THROAT OVERVIEW - Sore throat is a common problem during childhood, and is usually the result of a bacterial or viral infection. Although sore throat usually resolves without complications, it sometimes requires treatment with an antibiotic. There are some less common causes of sore throat that are serious or even life-threatening. This topic will discuss the most common causes and treatments of sore throat in children, as well as the warning signs of more serious conditions. SORE THROAT CAUSES - The most likely cause of a child's sore throat depends upon the child's age, the season, and the geographic area. While viruses are the most common cause of sore throat, bacteriaare another common cause. Bacteria and viruses are spread from one person to another through hand contact. Hands get contaminated when the sick individual touches their nose or mouth and then touchesanother person directly (tzcz-zp-gtwi contact) or indirectly (uesl-qn-ygzihr, such as doorknob, telephone, toys). It is difficult to determine the cause of sore throat based upon symptoms alone; an examination andlaboratory test are recommended in most cases Viruses - There are many viruses that can cause pain and swelling of the throat. The most common include viruses that cause sore throat as part of an upper respiratory infection, such as the common cold. Other viruses that cause sore throat include influenza, adenovirus, and Alexei-Casey virus (thecause of mononucleosis). Symptoms - Symptoms that may occur with a viral infection can include a runny nose and congestion, irritation or redness of the eyes, cough, hoarseness, soreness in the roof of the mouth, a skin rash, or diarrhea. In addition, children with viral infections may have a fever and may feel miserable. A high fever does not necessarily mean that the child has a bacterial infection. Group A streptococcus - Group A streptococcus (GAS) is the name of the bacterium that causes strep throat. Although other bacteria can cause a sore throat, GAS is the most common bacterial cause; up to 30 percent of children with a sore throat will have GAS. Strep throat usually occurs during the winter and early spring, and is most common in school-age children and their younger siblings. Symptoms - Symptoms of strep throat in children older than 3 years often develop suddenly and include fever (temperature ?100.4 F or 38 C), headache, abdominal pain, nausea, and vomiting. Other symptoms can include swollen glands in the neck, white patches of pus in the back or sides of the throat,small red spots on the roof of the mouth, and swelling of the uvula. A cough and cold are not commonly seen in children with strep throat. Strep throat is uncommon in children younger than age 2 to 3 years. However, GAS infection can occur in younger children, and may cause a runny nose and congestion that is prolonged, low-grade fever (?101 F or 38.3 C), and tender glands in the neck. Infants younger than 1 year may be fussy and havea decreased appetite and low-grade fever. SORE THROAT TREATMENT - The treatment of sore throat depends upon the cause; strep throat is treated with an antibiotic while viral pharyngitis is treated with rest, pain relievers, and other measures to reduce symptoms. Strep throat - Strep throat is usually treated with an antibiotic, such as penicillin, or an antibiotic similar to penicillin (eg, amoxicillin). Children who are allergic to penicillin will be given an alternate antibiotic. The antibiotic is usually given in pill or liquid form two or three times per day. A one-time injection is also available, and may be recommended if a child is unwilling to take an oral medication. After completing 24 hours of antibiotics, the child is no longer contagious and may return to school. Symptoms usually improve within 1 to 2 days. However, it is important for the child to finish theentire course of treatment (usually 10 days). If a child does not begin to improve or worsens within 3 days, the child should be reevaluated. Throat pain can be treated with a non-prescription pain medication, if needed. (See 'Pain medications' below.) In addition, parents should monitor their child for dehydration, which can develop if the child is not willing to drink or eat due to a sore throat. (See 'Monitor for dehydration' below.) Viral throat pain - Sore throat caused by viral infections usually last 4 to 5 days. During this time, treatments to reduce pain may be helpful but will not help to eliminate the virus. Antibiotics do not improve throat pain caused by a virus and are not recommended. A child with a viral infection is usually allowed to return to school when there has been no fever for 24 hours and the child feels well enough to pay attention. Pain medications - Throat pain can be treated with a mild pain reliever such as acetaminophen (Tylenol ) or a non-steroidal anti-inflammatory agent such as ibuprofen (Motrin ). These medications should be dosed according to weight, not age. Aspirin is not recommended for children <18 years due to the risk of a potentially serious condition known as Elza syndrome. Monitor for dehydration - Some children with a sore throat are reluctant to drink or eat due to pain. Drinking less fluid can lead to dehydration. To reduce the risk of dehydration, parents can offerwarm or cold liquids. (See 'Other interventions' below.) Signs and symptoms of mild dehydration include a slightly dry mouth, increased thirst, and decreased urine output (one wet diaper or void in six hours). Signs of moderate or severe dehydration include decreased urine output (less than one wet diaper or void in six hours), lack of tears when crying,dry mouth, and sunken eyes. A child who is moderately or severely dehydrated should be evaluated by a healthcare provider as soon as possible to determine if treatment is needed. Oral rinses- Salt-water gargles are an old stand-by for relief of throat pain. It is not clear if this treatmentis effective, but it is unlikely to be harmful. Most recipes suggest 1/4 to 1/2 teaspoon of salt per cup (8 ounces) of warm water. The water should be gargled and then spit out (not swallowed). Children younger than six to eight years are not able to gargle properly. An oral rinse composed of equal parts of diphenhydramine (Benadryl liquid) and Maalox (magnesium hydroxide, aluminum hydroxide, and simethicone) may be helpful for pain caused by a sore mouth or ulcers in the mouth. Children older than six to eight years may swish and spit (not swallow) the mixture. Sprays - Sprays containing topical anesthetics are available to treat sore throat. However, such sprays are no more effective than sucking on hard candy. In addition, a common anesthetic ingredient, benzocaine, can cause allergic reactions. We do not recommend throat sprays for children. Lozenges - A variety of medicated throat lozenges are available to relieve dryness or pain. However, it is not clear that lozenges work any better than hard candy. We do not recommend throat lozengesfor children, especially children younger than 3 to 4 years, who can choke. Sucking on hard candy may provide some relief for children older than 3 to 4 years, who are not at risk for choking. Other interventions - Other interventions include sipping warm beverages (eg, honey or lemon tea, chicken soup), cold beverages, or eating cold or frozen desserts (eg, ice cream, popsicles). These treatments are safe for children. Honey should not be given to children younger than 12 months due to the potential risk of botulism poisoning. Alternative therapies - Health food stores, vitamin outlets, and Internet Web sites offer alternative treatments for relief of sore throat pain. We do not recommend these treatments due to the risks of contamination with pesticides/herbicides, inaccurate labeling and dosing information, and a lack of studies showing that these treatments are safe and effective. SORE THROAT PREVENTION - Hand washing is an essential and highly effective way to prevent the spread of infection. Hands should be wet with water and plain soap, and rubbed together for 15 to 30 seconds. Special attention should be paid to the fingernails, between the fingers, and the wrists. Handsshould be rinsed thoroughly, and dried with a single use towel. Alcohol-based hand rubs are a good alternative for disinfecting hands if a sink is not available. Hand rubs should be spread over the entire surface of hands, fingers, and wrists until dry, and may be used several times. These rubs can be used repeatedly without skin irritation or loss of effectiveness. Hand rubs are available as a liquid or wipe in small, portable sizes that are easy to carry in a pocket or handbag. When a sink is available, visibly soiled hands should be washed with soap and water. Hands should be washed after coughing, blowing the nose or sneezing. While it is not always possible to limit contact with a person who is sick, avoiding touching the eyes, nose, or mouth after direct contact can help to prevent the spread of infection. In addition, tissues should be used to cover the mouth when sneezing or coughing. These used tissues should be disposed of promptly. Sneezing/coughing into the sleeve of one's clothing (at the inner elbow) is another means of containing sprays of saliva and secretions and has the advantage of not co ntaminating the hands. WHEN TO SEEK HELP - Parents of a child with throat pain and one or more of the following should contact their healthcare provider immediately: Difficulty swallowing or breathing Excessive drooling in an infant or young child Temperature ?101 F or 38.3 C Swelling of the neck Child is unable or unwilling to drink or eat Voice sounds muffled Child has a stiff neck or difficulty opening the mouth WHERE TO GET MORE INFORMATION - Your child's healthcare provider is the best source of information for questions and concerns related to your child's medical problem. This article will be updated as needed every four months on our web site ([email or web address]). Information below was obtained from Up to date Last literature review version 19.2: June 2010 This topic last updated: September 29, 2009 documented in this encounterK[facility]04-04-2022 History of Present illness Narrative* Sonia Garza PA-C - 05/16/2021 1:15 PM EDT 05/16/2021 Patient presents with: Sore Throat: x4 days, worse x1 day SUBJECTIVE: This is a 16 year old that is here today for Complaint(s) of sore throat x 3 days. Worsening since yesterday. Able to swallow without difficulty, but very painful per patient. + fatigue per patient that started yesterday. Denies fever/chills, ANDREW, cough, nasal congestion, abdominal pain,chest pain, SOB, ear pain. No known sick contacts. Patient UTD on routine immunizations per patient. PAST MEDICAL HISTORY Diagnosis Date ADHD (attention deficit hyperactivity disorder) Asthma ALLERGIES [employer] Neydaub [[facility]] MEDICATIONS Current Outpatient Medications Medication Sig spironolactone (ALDACTONE) 100 mg tablet TAKE 1 TABLET BY MOUTH AT THE SAME TIME NIGHTLY WITH WATER ketoconazole (NIZORAL) 2 % shampoo WASH THE SCALP DAILY AND ALLOW TO SIT ON THE SCALP FOR 5 MINUTESPRIOR TO RINSING Sulfacetamide Sodium, Acne, 10 % susp APPLY A THIN LAYER TO THE FACE 1-2 TIMES DAILY atomoxetine (STRATTERA) 40 mg capsule etonogestrel (NEXPLANON) subdermal implant 68 mg 1 Each by SUBDERMAL route as directed. albuterol HFA (PROVENTIL HFA, VENTOLIN HFA) 90 mcg/actuation inhaler Inhale 2 Puffs as instructed. No current facility-administered medications for this visit. SOCIAL HISTORY Social History Tobacco Use Smoking status: Never Smoker Smokeless tobacco: Never Used Vaping Use Vaping Use: Never used Substance Use Topics Alcohol use: Never Drug use: Never REVIEW OF SYSTEMS See HPI OBJECTIVE: BP 112/78 Pulse 112 Temp 36.3 C (97.3 F) Resp 18 Wt 101.9 kg (224 lb 9.6 oz) LMP (LMP Unknown) SpO2 97% APPEARANCE Well appearing, alert, in no acute distress, well-hydrated, well nourished. EYES PERRLA, conjunctiva and sclera normal. EARS External ears normal, canals clear. TMs normal FRANCESCO NOSE/SINUS Nares normal. Septum midline. Mucosa normal. No drainage or sinus tenderness. THROAT + erythematous, with tonsillar exudate present FRANCESCO. Uvula midline. Controlling secretions. NECK Supple, + FRANCESCO anterior cervical adenopathy; HEART RRR with normal S1 and S2 LUNG clear to auscultation, No wheezing, rhonchi, rales. ABDOMEN soft, non-tender, no organomegaly. ASSESSMENT/PLAN: 1. Sore throat - ICD9: 462, ICD10: J02.9 - Alere Strep Test positive, no culture pending - Discussed supportive care treatment with fluids, rest and analgesia. - The patient may also use warm salt water gargles, throat lozenges and/or OTC throat spray as needed and nasal saline gtts and suction prn. - Contagious dz precautions discussed- including considered contagious until on antibiotics for 24 hours - The patient should follow up in 3-5 days if symptoms persist or worsen - Call back if drooling, increased temperature, symptoms of dehydration and/or still sick in one week - STREP A MOLECULAR (POC) - AMOXICILLIN 500 MG CAPSULE Reviewed red flags and when to seek care sooner. Sonia Garza PA-C documented [facility] note No data available for this section [facility] Evaluation + Plan note Future Appointments Appointment Date:07/04/2024 08:45:00 AM Scheduled Provider:MICHAEL LÓPEZ MD Location:Gen Surg [facility] Appointment Type:GS HAND BOOKED FOLDER AND STITCHER Post Op [facility] Evaluation + Plan note Future Appointments Appointment Date:08/08/2024 10:30:00 AM Scheduled Provider:MICHAEL LÓPEZ MD Location:Gen Surg [facility] Appointment Type:GS OV Post Op Diagnostic Tests Pending * Culture Wound Aerobic with Gram Stain 07/06/24 [facility] Evaluation note* Diagnosis Sore throat- Primary Acute pharyngitis documented in this encounter [facility] note* Diagnosis Fatigue, unspecified type Dizzinesses documented in this encounter [facility] noteNo assessment information available [facility] Work Phone: Evaluation note* Diagnosis Right eyelid laceration, initial encounter- Primary documented in this encounter [facility] note* Diagnosis Nexplanon removal- Primary Surveillance of previously prescribed implantable subdermal contraceptive documented in this encounter [facility] note* Diagnosis 12 weeks gestation of - Primary state, incidental Encounter for supervision of normal first in first trimester Supervision of normal first Screen for STD (sexually transmitted disease) Screening examination for venereal disease BMI 36.0-36.9,adult Body Mass Index 36.0-36.9, adult documented in this encounter [facility] note* Diagnosis Encounter for screening for malformation using ultrasound ([facility])- Primary 12 weeks gestation of ([facility]) state, incidental Encounter for supervision of normal first in first trimester ([facility]) Supervision of normal first documented in this encounter [facility] note* Diagnosis UTI (urinary tract infection) in , antepartum ([facility])- Primary Infections of genitourinary tract antepartum Encounter for supervision of normal first in second trimester ([facility])- Primary Supervision of normal first 16 weeks gestation of ([facility]) state, incidental documented in this encounter [facility] Discharge instructions No data available for this section [facility] Progress note No data available for this section [facility] Chief Complaint and Reason for Visit Chief Complaint head pressure Chief Complaint head pressure LAC Advance Directives No Advanced Directives Records Found Advance Directive Response Recorded Date/ Time Living Will No January 02 10:26am Power of Supervisor [place] No January 02, 2013 10:26am Advance Directive Response Recorded Date/ Time Living Will No January 02 013 9:26am Power of Supervisor [place] No January 02, 2013 9:26am Summary Purpose Family History No Family History Records Found No data available for this section No data available for this section No Family History Records Found No data available for this section No data available for this section No data available for this section No Family History Records Found No data available for this section No data available for this section No Family History Records FoundNo Family History Records Found Additional Source Comments Source Comments (unrecognize d section and content) In the event this informatio n is protected by the Federal Confidentiality of Alcohol and Drug Abuse Patient Records regulations: The Federal rules restrict any use of the information to criminally investigate or prosecute any alcohol or drug abuse patient.[facility] CenterIn the event this information is protected by the Federal Confidentiality of Alcohol and Drug Abuse Patient Records regulations: The Federal rules restrict any use of the information to criminally investigate or prosecute any alcohol or drug abuse patient.[facility] CenterIn the event this information is protected by the Federal Confidentiality of Alcohol and Drug Abuse Patient Records regulations: The Federal rules restrict any use of the information to criminally investigate or prosecute any alcohol or drug abuse patient.[facility] CenterIn the event this information is protected by the Federal Confidentiality of Alcohol and Drug Abuse Patient Records regulations: The Federal rules restrict any use of the information to criminally investigate or prosecute any alcohol or drug abuse patient.[facility] CenterIn the event this information is protected by the Federal Confidentiality of Alcohol and Drug Abuse Patient Records regulations: The Federal rules restrict any use of the information to criminally investigate or prosecute any alcohol or drug abuse patient.[facility] CenterIn the event this information is protected by the Federal Confidentiality of Alcohol and Drug Abuse Patient Records regulations: The Federal rules restrict any use of the information to criminally investigate or prosecute any alcohol or drug abuse patient.[facility] CenterIn the event this information is protected by the Federal Confidentiality of Alcohol and Drug Abuse Patient Records regulations: The Federal rules restrict any use of the information to criminally investigate or prosecute any alcohol or drug abuse patient.[facility] CenterIn the event this information is protected by the Federal Confidentiality of Alcohol and Drug Abuse Patient Records regulations: The Federal rules restrict any use of the information to criminally investigate or prosecute any alcohol or drug abuse patient.[facility] CenterIn the event this information is protected by the Federal Confidentiality of Alcohol and Drug Abuse Patient Records regulations: The Federal rules restrict any use of the information to criminally investigate or prosecute any alcohol or drug abuse patient.[facility] CenterIn the event this information is protected by the Federal Confidentiality of Alcohol and Drug Abuse Patient Records regulations: The Federal rules restrict any use of the information to criminally investigate or prosecute any alcohol or drug abuse patient.[facility] Reason for Visit (unrecogniz ed section and content) Reason Comments Sore Throat x4 days, worse x1 da y Reason Comments Trauma Scratch on right eye lid Reason Comments nexplanon removal Specialty Diagnoses / Procedures Referred By Contac t Referred To Contact Diagnoses medical necessary Procedures medical necessary Self [facility] [place] [address] Referral ID Status Reason Start Date Expiration Date Visits Requested Visits Authorized [id number] Authorized Patient Cleared - Qualified 100% FAS 07/10/2023 10/08/2023 99 99 Reason Comments New First OB Visit Reason Comments PRAF Reason Comments US Specialty Diagnoses / Procedures Referred By Contstephanie t Referred To Contact [facility] Diagnoses 12 weeks gestation of (HCC) Encounter for supervision of normal first in first trimester (HCC) Procedures OBSTETRIC ULTRASOUND WHI US PREG UTERUS AFTER 1ST TRIMEST GESTATION Mona Jefferson, [employer]GR[employer]INTER [address] [place] [address] Phone: tel: fax: [facility] [address] [place] [address] Referral ID Status Reason Start Date Expiration Date V isits Requested Visits Authorized [id number] Closed Auto-Generate d Referral 05/06/2024 05/06/2025 1 1 Reason Comments Centering for Reason Comments Seen in ER 06/13/24 for UTI Reason Onset Date Comments Results 05/07/2024 Care Teams (unrecognized sec tion and content) Studio Grip Relationship Specialty Start Date End Date Lizzy Dacosta PCP - General Pediatrics 12/18/16 Studio [employer] Relationship Specialty Start Date End Date Vashti Mclean DO PCP - General Pediatrics 06/30/19 [employer] Relationship Specialty Start Date End Date Lizzy Dacosta PCP - General Pediatrics 12/18/16 Studio [employer] Relationship Specialty Start Date End Date Lizzy Dacosta PCP - General Pediatrics 12/18/16 Studio [employer] Relationship Specialty Start Date End Date Lizzy Dacosta MD PCP - General Pediatrics 12/18/16 Studio [employer] Relationship Specialty Start Date End Date Lizzy Dacosta MD PCP - General Pediatrics 12/18/16 Studio [employer] Relationship Specialty Start Date End Date Lizzy Dacosta MD PCP - General Pediatrics 12/18/16 Studio [employer] Relationship Specialty Start Date End Date Lizzy Dacosta MD PCP - General Pediatrics 12/18/16 Studio [employer] Relationship Specialty Start Date End Date Lizzy Dacosta MD PCP - General Pediatrics 12/18/16 Studio [employer] Relationship Specialty Start Date End Date Lizzy Dacosta MD PCP - General Pediatrics 12/18/16 Studio [employer] Relationship Specialty Start Date End Date Lizzy Dacosta MD PCP - General Pediatrics 12/18/16 Goals (unrecognized section and content) Goals may be documented in a n alternate sectionGoals may be documented in an alternate section No data available for this section No data available for this section No data available for this section No data available for this section No data available for this section No data available for this section No data available for this section INFORMATION SOURCE (unrecogn ized section and content) DATE CREATED AUTHOR 02/21/2022 [facility] DATE CREATED AUTHOR AUTHOR'S ORGANIZ ATION 06/19/2024 [facility] DATE CREATED AUTHOR AUTHOR'S ORGANIZ ATION 07/03/2024 [facility] DATE CREATED AUTHOR AUTHOR'S ORGANIZ ATION 07/11/2024 [facility] DATE CREATED AUTHOR AUTHOR'S ORGANYASEMIN ATION 08/15/2024 [facility] MAIN FOR RECORDS PERTAINING TO PATIENTS WHO ARE OR HAVE BEEN ENROLLED IN A CHEMICAL DEPENDENCY/SUBSTANCEABUSE PROGRAM, SOME INFORMATION MAY BE OMITTED. This clinical summary was aggregated from multiple sources. Caution should be exercised in using it in the provision of clinical care. This summary normalizes information from multiple sources, and as a consequence, information in this document may materially change the coding, format and clinical context of patient data. In addition, data may be omitted in some cases. CLINICAL DECISIONS SHOULD BE BASED ON THE PRIMARY CLINICAL RECORDS. [facility] [employer], [facility]. provides no warranty or guarantee of the accuracy or completeness of information in this document.
--- NOTE | 2024-08-22 03:19 | EDS_ITS ---
HPI History of Present Illness Chief Complaint: Nausea/Vomiting Informant: patient and spouse/S.O. Narrative Narrative: Patient is a 19-year-old female who states she had her appendix out in June and has had complications from it such as postoperative infection/wound. She states she is following with wound care and has been doing well. However at work there been multiple people she states that have been sick with bouts of abdominal pain nausea and vomiting. She states that this evening she became nauseous and had 1 bout of vomiting and had to leave work. Secondary to this she presents to the ER for evaluation [facility] Medical History (Updated 08/26/24 @ 07:[address] Vlad Storey, ) ADH disorder Asthma Home Medications ?Medication ?Instructions ?Recorded ?Last Taken ?Type albuterol sulfate 90 mcg/actuation 1 - 2 puff inhalati on Q4H PRN PRN 06/30/19 Unknown History aerosol inhaler Sob &/Or Wheezing dicyclomine 20 mg tablet 20 mg PO 4X/DAY PRN Abdomina l 08/22/24 Unknown Rx bloating/spasm #28 tabs promethazine 25 mg tablet 25 mg PO TID PRN nausea and 08/22/24 Unknown Rx vomiting #21 tabs Allergy/AdvReac Type Severity Reaction Status Date / Time camphor (From Vicks Vaporub) Allergy Other Verified 08/22/24 01:52 eucalyptus (From Vicks Allergy Other Verified 08/22/24 01:52 Vaporub) menthol (From [facility]icks Vaporub) Allergy Other Verified 08/22/24 01:52 ondansetron Allergy Hives Verified 08/22/24 01:52 petrolatum,white (From [facility]icks Allergy Other Verified 08/22/24 01:52 Vaporub) turpentine oil (From Vicks Allergy Other Verified 08/22/24 01:52 Vaporub) Surgical History (Updated 08/22/24 @ 01:53 by Pau Craig) History of appendectomy H/O eye surgery Social History Smoking Status: Never smoker ROS ROS ED Constitutional Constitutional ED: Denies chills or fever(s) Eyes Eyes: Denies change in vision ENT ENT ED: Denies sore throat Cardiovascular Cardiovascular: Denies chest pain Respiratory/Chest Respiratory/Chest: Denies cough or dyspnea Gastrointestinal Gastrointestinal: Reports abdominal pain, nausea and vomiting; Denies diarrhea Genitourinary Genitourinary ED: Denies dysuria Musculoskeletal Musculoskeletal: Denies myalgias Integumentary Reports other Details: Positive postsurgical wound Neurologic Neurologic: Denies headache(s) Hematologic/Lymphatic Hematologic/Lymphatic: Denies easy bleeding or easy bruising EXAM Physical Exam Const Vital Signs: 08/22/24 01:51 Temperature 98 F Temperature Source Oral Pulse Rate 100 Respiratory Rate 16 Blood Pressure 135/93 H Blood Pressure Mean 107 Pulse Ox 100 Positive well nourished and well developed General Appearance ED: well developed; Negative for pallor HEENT Reports moist mucous membranes HEENT Narrative: No tongue or lip swelling no oral lesions no airway edema or compromise No signs of infection noted in the posterior pharynx Eyes PERRL and EOMs intact bilaterally General Eye ED: Negative for scleral icterus Neck supple Neck Narrative: No nuchal rigidity or meningeal signs Resp normal respiratory effort and clear to auscultation bilaterally Cardio regular rate and regular rhythm Rate: other Other Details: Radial and carotid pulses are equal and symmetric GI non-distended and no masses GI Narrative: Abdomen is soft and nondistended with normal active bowel sounds Patient has mild pain with palpation in the lower abdomen diffusely without voluntary guarding or rigidity No pulsatile mass or fluid wave There is a postoperative wound in the lower region of the incision that is clean dry and intact with good granulation tissue present and no signs of drainage erythema streaking or induration/fluctuance to suggest infection Auscultation: hyperactive bowel sounds Palpation: soft Back/Spine no CVA tenderness Extremity normal to inspection Neuro oriented x3, CN's II-XII intact bilaterally and no sensory deficits noted Sensorium / Orientation: alert Motor Exam: strength 5/5 throughout Psych mental status grossly normal Skin no rashes or lesions noted and skin turgor normal Skin Narrative: Postoperative wound to the abdomen as documented above without secondary findings of infection General Skin Exam: Negative for jaundice or pallor MDM MDM MDM Narrative Medical decision making narrative: Patient arrived to the ER with stable vitals. Her abdomen is soft and nonsurgical. She has recently had abdominal surgery for her appendicitis 2 months ago and had reported a bout of nausea and vomiting. Patient could have an atypical presentation for ileus or obstruction however her physical exam does not suggest this as there is no distention and her bowel sounds are hyperactive. She reports multiple sick contacts at work with similar symptoms and her history and exam is most consistent with a viral stomach infection. There is no sign of significant dehydration and therefore my concern for acute kidney injury or electrolyte abnormality is low and I do not feel the need for laboratory studies. The patient be given symptomatic care and is otherwise safe for discharge History & Record Review Discussion w/independent historian: Patient and Significant other Discharge Plan Triage Chief Complaint: Nausea/Vomiting ED Provider: Vlad Storey Dx/Rx/DC Orders Clinical Impression: Nausea & vomiting, Asthma Instructions: ED Gastroenteritis, Viral (Adult) Prescriptions: New promethazine 25 mg tablet 25 mg PO TID PRN (Reason: nausea and vomiting) Qty: 21 0RF dicyclomine 20 mg tablet 20 mg PO 4X/DAY PRN (Reason: Abdominal bloating/spasm) Qty: 28 0RF No Action albuterol sulfate 1 INHALER inhaler 1 - 2 puff inhalation Q4H PRN PRN (Reason: Sob &/Or Wheezing) Stand Alone Forms: ED Work / School Excuse Primary Care Provider: Care Physician,No Primary Referrals: Care Physician,No Primary [Primary Care Provider] - Activity Restrictions/Additional Instructions: Your history and exam is most consistent with a viral stomach infection. This will last anywhere from 24 hours to 7 days with the average being 3 days. Take the prescribed medication as directed to help control symptoms and keep yourself well-hydrated. Return to the ER should you have any further concerns Print Language: Romansh Disposition Disposition: Home, Self Care Discharge Date/Time: 08/22/24 03:30
[2024-08-22 03:29] VITALS: BP 140/96; PULSE 83; RESP 16; TEMP 36.7; O2SAT 100
== END 2024-08-22 03:30 | disposition home or self-care (01) ==
PROVIDERS: Emergency Provider Emergency Medicine; Visit Provider Emergency Medicine
DX: R11.2 Nausea with vomiting, unspecified (principal); R10.9 Unspecified abdominal pain; J45.909 Unspecified asthma, uncomplicated; Z90.49 Acquired absence of other specified parts of digestive tract
CPT/HCPCS: 99282